=== PATIENT | female | born 1935 | race Caucasian/White ===

== ENCOUNTER 2016-08-21 08:36 | Day surgery (SDC) | payer MEDICARE, MEDICAID ==
[~2016-08-21 08:36] MED LIST: PROPOFOL INJ 200 MG/20 ML VIAL IV ONE
[2016-08-21] MEDS ORDERED: PROPOFOL INJ 200 MG/20 ML VIAL IV ONE ×2 (08:45→10:59)
[2016-08-21 12:02] VITALS: BP 151/49
--- NOTE | 2016-08-21 12:28 | Operative Report ---
Operative Report DATE OF SURGERY: 08/21/16 Operative Report: The risks, benefits and alternatives of the procedure including risks of bleeding, perforation requiring surgery are explained to the patient detail and informed consent is obtained. The patient was taken back to the endoscopy suite. Timeout is called. A rectal examination is done which did not reveal any masses, tears or fissures. An Olympus videoscope was inserted into the patient's rectum. Keeping the lumen in site at all times the scope was then gradually advanced all the way to the cecum. The cecum as identified by the usual anatomical landmarks including the ileocecal valve as well as the appendiceal office. Prep is good. Photo documentations obtained. The scope was then sequentially pulled back via the rest segments of the colon including the ascending colon, hepatic flexure, transverse colon, splenic flexure, descending colon and finally into the rectosigmoid colon. Retroflexion maneuvers performed. Following the completion of colonoscopy the patient's stretcher was turned around and the upper endoscopy is performed. The risks benefits and alternatives of the procedure explained to the patient in detail and informed consent is obtained that GIF Olympus video scope was inserted into the patient's mouth and hypopharynx the esophagus is identified intubated and insufflated the scope was then advanced through the esophagus stomach and duodenum retroflexion maneuver is done the esophagus stomach and first and second portions of the duodenum examined PREOPERATIVE DIAGNOSIS: Indications for the colonoscopy includes GI bleeding, previous history of diverticulosis. Indications for the upper endoscopy includes noncardiac chest pain, gastroesophageal reflux disease. POSTOPERATIVE DIAGNOSIS: On upper endoscopy findings of a duodenal bulb polyp that required snare polypectomy. Colonoscopy to 3 polyps; one in the cecum, one in the sigmoid, the other one in the rectum. All 3 had to be removed via snare polypectomy. Patient does have some diverticulosis. Total hemorrhoids are also visualized. OPERATION: Colonoscopy with snare polypectomy. Upper endoscopy with snare polypectomy. SURGEON: ALEX BIGGS ANESTHESIA: LMAC TISSUE REMOVED OR ALTERED: Duodenal polyp removed and retrieved. All 3 colon polyps removed and retrieved. COMPLICATIONS: None. ESTIMATED BLOOD LOSS: none INTRAOPERATIVE FINDINGS: Mild gastritis is noted. Duodenal polyp is noted removed via snare polypectomy. Patent esophagus. 3 polyps as described. Diverticulosis. Internal hemorrhoids PROCEDURE: Patient tolerated the procedure well. No immediate postprocedure complications are noted. Patient is discharged in good condition. Patient does have a 2-3 week follow-up to discuss findings. She is instructed to call the office or go to emergency room if there is any bleeding. She'll need a surveillance colonoscopy in 5 years. Discharge date 08/21/2016. Discharge diet: Regular. Discharge activity: Regular.
== END 2016-08-21 12:10 | disposition home or self-care (01) ==
LOC: END 08:36
PROVIDERS: ATTEND Internal Medicine Gastroenterology
PROC: 0DBN8ZX Excision of Sigmoid Colon, Via Natural or Artificial Opening Endoscopic, Diagnostic (ICD-10-PCS; 2016-08-21)
PROC: 0DBP8ZX Excision of Rectum, Via Natural or Artificial Opening Endoscopic, Diagnostic (ICD-10-PCS; 2016-08-21)
PROC: 0DB98ZX Excision of Duodenum, Via Natural or Artificial Opening Endoscopic, Diagnostic (ICD-10-PCS; principal; 2016-08-21 09:00)
PROC: 0DBH8ZX Excision of Cecum, Via Natural or Artificial Opening Endoscopic, Diagnostic (ICD-10-PCS; 2016-08-21 09:00)
DX: D13.2 Benign neoplasm of duodenum (principal); D12.0 Benign neoplasm of cecum; D12.5 Benign neoplasm of sigmoid colon; K62.1 Rectal polyp; K62.5 Hemorrhage of anus and rectum; J44.9 Chronic obstructive pulmonary disease, unspecified; I25.10 Atherosclerotic heart disease of native coronary artery without angina pectoris; J45.909 Unspecified asthma, uncomplicated; E11.9 Type 2 diabetes mellitus without complications; Z85.3 Personal history of malignant neoplasm of breast; I50.9 Heart failure, unspecified; Z79.82 Long term (current) use of aspirin; Z79.899 Other long term (current) drug therapy
CPT/HCPCS: 43251; 45385; 82962; 88305 ×2; J2704; 740

== ENCOUNTER → 2016-08-29 | Outpatient (CLI) | payer MEDICARE, MEDICAID | LOC: RAD 10:49 | PROVIDERS: ATTEND Specialist | DX: C50.412 Malignant neoplasm of upper-outer quadrant of left female breast (principal) | CPT/HCPCS: 78306; A9503; Q9969 ==

== ENCOUNTER 2016-09-29 07:56 | Inpatient (IN) | payer MEDICARE, MEDICAID ==
[2016-09-29] MEDS ORDERED: DEXTROSE 50%-WATER 25 GM/50 ML DISP.SYRIN IV ONE (08:16)
[2016-09-29] MEDS ORDERED: DEXTROSE 5%-NORMAL SALINE 1,000 ML IV ONE (08:29)
[2016-09-29 08:35] LABS: ABSOLUTE BASOPHILS # (AUTO) 0.1 10^3/uL (0.0-0.2); ABSOLUTE EOSINOPHILS # (AUTO) 0.2 10^3/uL (0.0-0.6); ABSOLUTE LYMPHOCYTES (AUTO) 1.1 10^3/uL (0.5-4.7); ABSOLUTE MONOCYTES (AUTO) 0.5 10^3/uL (0.1-1.4); ABSOLUTE NEUT (AUTO) 4.4 10^3/uL (1.7-8.2); BASOPHILS % (AUTO) 0.8 % (0-2); EOSINOPHILS % (AUTO) 3.7 % (0-6); HEMATOCRIT 32.9 % (36.0-47.0); HEMOGLOBIN 10.7 g/dL (12.0-15.5); HGB HCT DIFFERENCE -0.8; LYMPHOCYTES % (AUTO) 17.4 % (13-45); MEAN CORPUSCULAR HEMOGLOBIN 30.6 pg (27.0-33.4); MEAN CORPUSCULAR HGB CONC 32.5 g/dL (32.0-36.0); MEAN CORPUSCULAR VOLUME 94 fl (80-97); MONOCYTES % (AUTO) 8.3 % (3-13); RED CELL DISTRIBUTION WIDTH 16.2 % (11.5-14.0); SEGMENTED NEUTROPHILS % (AUTO) 69.8 % (42-78); WHITE BLOOD COUNT 6.2 10^3/uL (4.0-10.5)
[2016-09-29 08:38] LABS: ALANINE AMINOTRANSFERASE 25 U/L (9-52); ALBUMIN 4.5 g/dL (3.5-5.0); ALKALINE PHOSPHATASE 62 U/L (38-126); ANION GAP 14 (5-19); ASPARTATE AMINO TRANSFERASE 27 U/L (14-36); BILIRUBIN,TOTAL 0.5 mg/dL (0.2-1.3); BLOOD UREA NITROGEN 57 mg/dL (7-20); CALCIUM 10.4 mg/dL (8.4-10.2); CARBON DIOXIDE 31 mmol/L (22-30); CHLORIDE 99 mmol/L (98-107); CREATINE KINASE 98 U/L (30-135); CREATININE RESULT 1.98 mg/dL (0.52-1.25); GLUCOSE 65 mg/dL (75-110); POTASSIUM 3.2 mmol/L (3.6-5.0); SODIUM 143.6 mmol/L (137-145); TOTAL PROTEIN 7.1 g/dL (6.3-8.2)
[2016-09-29 08:50] LABS: CREATINE KINASE MB 1.75 ng/mL (<4.55)
[2016-09-29 08:52] LABS: LIPASE 192.3 U/L (23-300)
[2016-09-29 09:03] LABS: TROPONIN I 0.04 ng/mL
[2016-09-29 09:04] LABS: MAGNESIUM 0.8 mg/dL (1.6-2.3)
[2016-09-29] MEDS ORDERED: MAGNESIUM SULFATE/D5W 100 ML IV ONE ×2 (09:27→13:00)
[2016-09-29 10:21] LABS: APPEARANCE,URINE CLEAR; BILIRUBIN,URINE NEGATIVE (NEGATIVE); GLUCOSE, URINE NEGATIVE (NEGATIVE); KETONES,URINE NEGATIVE (NEGATIVE); LEUKOCYTE ESTERASE,URINE LARGE (NEGATIVE); NITRITE,URINE NEGATIVE (NEGATIVE); PROTEIN,URINE NEGATIVE (NEGATIVE); UROBILINOGEN,URINE NEGATIVE mg/dL (<2.0)
[2016-09-29 10:22] LABS: URINE SPECIFIC GRAVITY 1.006
--- NOTE | 2016-09-29 10:31 | ER Document Report ---
ED General - General Chief Complaint: Hypglycemia Stated Complaint: WEAKNESS TRAVEL OUTSIDE OF THE [place] IN LAST 30 DAYS: No - HPI Patient complains to provider of: hypoglycemia generalized weakness Notes: EMS was called to the patient's house today after she was found to be nonresponsive had a blood sugar 40. Patient was given an amp D50 transfer reported to the emergency room for further evaluation. Upon arrival here patient was found to be hypoglycemic again and was given another amp. Patient did improve. Patient and family states generally weak her last few days no nausea no vomiting fevers chills. - Related Data Allergies/Adverse Reactions: codeine [Codeine] Allergy (Severe, Verified 09/29/16 09:18) Hospitalized Penicillins Allergy (Severe, Verified 09/29/16 09:18) Redness, heat, swelling at site promethazine HCl [From Phenergan] Allergy (Unknown, Verified 09/29/16 09:18) PROBLEMS WITH LEGS Sulfa (Sulfonamide Antibiotics) Allergy (Unknown, Verified 09/29/16 09:18) Unknown reaction hydralazine HCl [From Apresoline] Adverse Reaction (Severe, Verified 09/29/16 09 :18) Cardiac arrest atorvastatin calcium [From Lipitor] Adverse Reaction (Verified 09/29/16 09:18) IV Contrast Allergy (Severe, Uncoded 09/29/16 09:18) ESRD Home Medications: Current Home Medications Allopurinol [Zyloprim 100 mg Tablet] 100 mg PO DAILY 09/29/16 [History] Amlodipine Besylate [Norvasc 10 mg Tablet] 10 mg PO DAILY 09/29/16 [History] Anastrozole [Arimidex 1 mg Tablet] 1 mg PO QHS 09/29/16 [History] Ascorbic Acid [Vitamin C 500 mg Tablet] 500 mg PO DAILY 09/29/16 [History] Aspirin [Aspirin 81 mg Chewable Tablet] 81 mg PO DAILY 09/29/16 [History] Carvedilol [Coreg 6.25 mg Tablet] 6.25 mg PO Q12 09/29/16 [History] Esomeprazole Magnesium [Nexium] 40 mg PO DAILY 09/29/16 [History] Fenofibrate Nanocrystallized [Triglide] 160 mg PO DAILY 09/29/16 [History] Fluticasone Propionate [Flonase Nasal [place] 50 Mcg/[place] 16 gm] 1 spray NASL Q12 09/29/16 [History] Hum Insulin NPH/Reg Insulin Hm [Insulin Inj 70-30 (100 Unit/1 ml) 3 ml Vial] 75 unit SUBCUT BID 09/29/16 [History] Hydrocodone/Acetaminophen [[place] 10-325 mg Tablet] 1 tab PO Q6HP PRN 09/29/16 [ History] Isosorbide Mononitrate [Imdur 60 mg Tablet.er] 60 mg PO DAILY 09/29/16 [History] Loratadine 10 mg PO DAILY 09/29/16 [History] Losartan Potassium [Cozaar 100 mg Tablet] 100 mg PO DAILY 09/29/16 [History] Metolazone [Zaroxolyn 2.5 Mg Tablet] 2.5 mg PO DAILY 09/29/16 [History] Nitroglycerin [Nitrostat] 0.4 mg SL Q5MP PRN 09/29/16 [History] [place]-3 Acid Ethyl Esters [Lovaza 1 gm Capsule] 2 gm PO BID 09/29/16 [History] Ondansetron HCl [Zofran 8 mg Tablet] 8 mg PO Q8HP PRN 09/29/16 [History] Paroxetine HCl [Paxil 20 mg Tablet] 20 mg PO QAM 09/29/16 [History] Potassium Chloride [Klor-Con 10 Meq Tablet.sa] 10 meq PO DAILY 09/29/16 [History ] Rosuvastatin Calcium [Crestor 10 mg Tablet] 10 mg PO DAILY 09/29/16 [History] Simethicone [Gas-X] 80 mg PO QIDP PRN 09/29/16 [History] Sucralfate [Carafate 1 gm Tablet] 1 gm PO BID 09/29/16 [History] Torsemide [Demadex 20 mg Tablet] 60 mg PO BID 09/29/16 [History] Past Medical History - Social History Smoking Status: Never Smoker Chew tobacco use (# tins/day): No Frequency of alcohol use: None Drug Abuse: None Family History: Reviewed & Not Pertinent, CAD, DM, Hyperlipidemia, Hypertension Patient has suicidal ideation: No Patient has homicidal ideation: No - Past Medical History Cardiac Medical History: Reports: Hx Congestive Heart Failure, Hx Coronary Artery Disease, Hx Hypertension Denies: Hx Atrial Fibrillation, Hx Heart Attack, Hx Hypercholesterolemia, Hx Peripheral Vascular Disease, Hx Pulmonary Embolism, Hx Heart Murmur Pulmonary Medical History: Reports: Hx Asthma, Hx Bronchitis, Hx COPD, Hx Pneumonia Denies: Hx Respiratory Failure, Hx Sleep Apnea, Hx Tuberculosis Neurological Medical History: Reports: Hx Migraine. Denies: Hx Cerebrovascular Accident, Hx Seizures Endocrine Medical History: Reports: Hx Diabetes Mellitus Type 1, Hx Diabetes Mellitus Type 2. Denies: Hx Graves' Disease, Hx Hyperthyroidism, Hx Hypothyroidism Renal/ Medical History: Denies: Hx End Stage Renal Disease, Hx Kidney Stones, Hx Ovarian Cysts, Hx Peritoneal Dialysis, Hx Pelvic Inflammatory Disease Malignancy Medical History: Reports: Hx Breast Cancer. Denies: Hx Cervical Cancer, Hx Leukemia, Hx Lung Cancer, Hx Ovarian Cancer GI Medical History: Reports: Hx Diverticulitis, Hx Gastroesophageal Reflux Disease, Hx Irritable Bowel, Hx Ulcer. Denies: Hx Crohn's Disease, Hx Hiatal Hernia, Hx Liver Failure Musculoskeltal Medical History: Reports Hx Arthritis, Denies Hx Fibromyalgia, Reports Hx Gout, Denies Hx Multiple Sclerosis, Denies Hx Muscular Dystrophy Psychiatric Medical History: Reports: Hx Depression Denies: Hx Bipolar Disorder, Hx Dementia, Hx Post Traumatic Stress Disorder, Hx Schizophrenia Traumatic Medical History: Reports: Hx Fractures Infectious Medical History: Denies: Hx HIV Past Surgical History: Reports: Hx Abdominal Surgery - Abdominal and umbilical hernia, Hx Appendectomy - In 1960, Hx Bowel Surgery - Instetinal bleed surgically repaired in the s, Hx Cholecystectomy, Hx Hysterectomy, Hx Kidney (Renal Surgery) - Left kidney stent, Hx Thyroid Surgery. Denies: Hx Section, Hx Colostomy, Hx Coronary Artery Bypass Graft, Hx Gastric Bypass Surgery, Hx Herniorrhaphy, Hx Mastectomy, Hx Pacemaker, Hx Tonsillectomy , Hx Tubal Ligation - Immunizations Hx Diphtheria, Pertussis, Tetanus Vaccination: No - Tetanus out of date Hx Pneumococcal Vaccination: 07/18/14 Review of Systems - Review of Systems Constitutional: No symptoms reported EENT: No symptoms reported Cardiovascular: No symptoms reported Respiratory: No symptoms reported Gastrointestinal: No symptoms reported Genitourinary: No symptoms reported Female Genitourinary: No symptoms reported Musculoskeletal: No symptoms reported Skin: No symptoms reported Hematologic/Lymphatic: No symptoms reported Neurological/Psychological: Weakness -: Yes All other systems reviewed and negative Physical Exam - Vital signs Vitals: Resp 18 09/29/16 08:05 Interpretation: Normal - General General appearance: Appears well, Alert - HEENT Head: Normocephalic, Atraumatic Eyes: Normal Pupils: PERRL - Respiratory Respiratory status: No respiratory distress Chest status: Nontender Breath sounds: Normal Chest palpation: Normal - Cardiovascular Rhythm: Regular Heart sounds: Normal auscultation Murmur: No - Abdominal Inspection: Normal Distension: No distension Bowel sounds: Normal Tenderness: Nontender Organomegaly: No organomegaly - Back Back: Normal, Nontender - Extremities General upper extremity: Normal inspection, Nontender General lower extremity: Normal inspection, Nontender - Neurological Neuro grossly intact: Yes Cognition: Normal Orientation: AAOx4 [place] Coma Scale Eye Opening: Spontaneous [place] Coma Scale Verbal: Oriented [place] Coma Scale Motor: Obeys Commands [place] Coma Scale Total: 15 Speech: Normal Sensory: Normal - Psychological Associated symptoms: Normal affect, Normal mood - Skin Skin Temperature: Warm Skin Moisture: Dry Skin Color: Normal Course - Re-evaluation Re-evalutation: 09/29/16 15:24 Patient's lab work showed chronic renal insufficiency with hypomagnesemia hypokalemia. Upon/were placed. Patient will transition to a D5 drip. Accu- Cheks were monitored. No signs of infection unknown reason for recurrent hypoglycemia patient will be admitted for further evaluation. - Vital Signs Vital signs: Temp Pulse Resp BP Pulse Ox 97.6 F 23 H 157/72 H 95 09/29/16 08:55 09/29/16 13:02 09/29/16 13:02 09/29/16 11:02 - Laboratory Result Diagrams: 09/29/16 08:05 09/29/16 08:05 Laboratory results interpreted by me: 09/29/16 09/29/16 09/29/16 08:03 08:05 08:05 RBC 3.50 L Hgb 10.7 L Hct 32.9 L RDW 16.2 H Potassium 3.2 L Carbon Dioxide 31 H BUN 57 H Creatinine 1.98 H Est GFR ( Amer) 29 L Est GFR (Non-Af Amer) 24 L Glucose 65 L POC Glucose 69 L Calcium 10.4 H Magnesium Ur Leukocyte Esterase 09/29/16 09/29/16 09/29/16 08:05 08:23 10:05 RBC Hgb Hct RDW Potassium Carbon Dioxide BUN Creatinine Est GFR ( Amer) Est GFR (Non-Af Amer) Glucose POC Glucose 221 H Calcium Magnesium 0.8 L* Ur Leukocyte Esterase LARGE H 09/29/16 11:14 RBC Hgb Hct RDW Potassium Carbon Dioxide BUN Creatinine Est GFR ( Amer) Est GFR (Non-Af Amer) Glucose POC Glucose 138 H Calcium Magnesium Ur Leukocyte Esterase Critical Care Note - Critical Care Note Total time excluding time spent on procedures (mins): 35 Comments: Multiple evaluations for recurrent hypoglycemia Discharge - Discharge Clinical Impression: Generalized weakness, recurrent hypoglycemia, Hypomagnesemia, Hypokalemia, Chronic kidney disease, stage IV (severe) Condition: Fair Disposition: ADMITTED OBSERVATION Admitting Provider: Hospitalist - [facility] Admitted: Telemetry
--- NOTE | 2016-09-29 11:02 | EKG REPORT ---
SEVERITY:- ABNORMAL ECG - A-V DUAL-PACED RHYTHM WITH SOME INHIBITION : Confirmed by: Mayo Stokes MD 29-Sep-2016 11:02:08
[2016-09-29] MEDS ORDERED: MAGNESIUM SULFATE/D5W 1 GM/100 ML RTUPB IV ONE (11:40)
[2016-09-29] MEDS ORDERED: ACETAMINOPHEN 325 MG TABLET PO PRN (11:51)
[2016-09-29] MEDS ORDERED: DEXTROSE 40% GEL 15 GM TUBE PO PRN ×2 (11:58)
[2016-09-29] MEDS ORDERED: DEXTROSE 50%-WATER 25 GM/50 ML DISP.SYRIN IV PRN ×2 (11:58)
[2016-09-29] MEDS ORDERED: GLUCAGON,HUMAN RECOMB 1 MG INJ IM PRN (11:58)
[2016-09-29] MEDS ORDERED: LEVOFLOXACIN 750 MG/D5W RTU 150 ML IV SCH (12:00)
--- NOTE | 2016-09-29 12:09 | PDOC H&P ---
History of Present Illness Admission Date/PCP: YO CHASE, Patient complains of: Near syncope History of Present Illness: JACINTA LUNSFORD is a 81 year old female, with diabetes, hypertension and congestive heart failure, as well as chronic kidney disease stage IV presents to the hospital with a near syncopal episode. Patient apparently started to develop generalized weakness yesterday. There is associated difficulty urination but no painful urination. There is some frequency associated as well. There was no loss of appetite chills or fever shortness of breath or coughing nor diarrhea. Today the patient had a near syncopal episode while trying to get up in bed. The ambulance was called and blood sugar was noted to be in the 40s. The patient was given dextrose and was transferred to the hospital where continuous infusion of glucose was administered. Blood sugar improved but it started to go down again. Magnesium was very low at 0.8 and potassium was low at 3.2. The patient was then referred for admission. There was associated diaphoresis but no chest pain at all. Past Medical History Past Medical History: Medication reconciliation pending verification from the patient's pharmacist. Cardiac Medical History: Reports: Congestive Heart Failure, Coronary Artery Disease, Hypertension, Heart Murmur, Other - Valvular heart disease Denies: Atrial Fibrillation, Myocardial Infarction, Hyperlipidema, Peripheral Vascular Disease, Pulmonary Embolism Pulmonary Medical History: Reports: Asthma, Bronchitis, Chronic Obstructive Pulmonary Disease (COPD), Pneumonia Denies: Respiratory Failure, Sleep Apnea, Tuberculosis Neurological Medical History: Reports: Migraine Denies: Seizures Endocrine Medical History: Reports: Diabetes Mellitus Type 1, Diabetes Mellitus Type 2 Denies: Hyperthyroidism, Hypothyroidism Renal/ Medical History: Reports: Chronic Kidney Disease - Stage IV Denies: End Stage Renal Disease Malignancy Medical History: Reports: Breast Cancer Denies: Cervical Cancer, Leukemia, Lung Cancer, Ovarian Cancer GI Medical History: Reports: Diverticulitis, Gastroesophageal Reflux Disease Denies: Crohn's Disease, Hiatal Hernia Musculoskeltal Medical History: Reports: Arthritis, Gout Denies: Fibromyalgia Psychiatric Medical History: Reports: Depression Denies: Bipolar Disorder, Dementia, Post Traumatic Stress Disorder Hematology: Reports: Anemia Denies: Hemophilia, Sickle Cell Disease Infectious Medical History: Denies: HIV Past Surgical History Past Surgical History: Reports: Appendectomy - In 1961, Cholecystectomy, Hysterectomy Denies: Amputation, Section, Colostomy, Coronary Artery Bypass Graft , Gastric Bypass Surgery, Herniorrhaphy, Mastectomy, Pacemaker, Tonsillectomy, Tubal Ligation Social History Information Source: Patient Smoking Status: Never Smoker Frequency of Alcohol Use: None Hx Recreational Drug Use: No Drugs: None Hx Prescription Drug Abuse: No Family History Family History: CAD, DM, Hyperlipidemia, Hypertension Parental Family History Reviewed: Yes Children Family History Reviewed: Yes Sibling(s) Family History Reviewed.: Yes Medication/Allergy Home Medications: Allopurinol [Zyloprim 100 mg Tablet] 100 mg PO DAILY 09/29/16 Amlodipine Besylate [Norvasc 10 mg Tablet] 10 mg PO DAILY 09/29/16 Anastrozole [Arimidex 1 mg Tablet] 1 mg PO QHS 09/29/16 Ascorbic Acid [Vitamin C 500 mg Tablet] 500 mg PO DAILY 09/29/16 Aspirin [Aspirin 81 mg Chewable Tablet] 81 mg PO DAILY 09/29/16 Carvedilol [Coreg 6.25 mg Tablet] 6.25 mg PO Q12 09/29/16 Esomeprazole Magnesium [Nexium] 40 mg PO DAILY 09/29/16 Fenofibrate Nanocrystallized [Triglide] 160 mg PO DAILY 09/29/16 Fluticasone Propionate [Flonase Nasal [place] 50 Mcg/[place] 16 gm] 1 spray NASL Q12 09/29/16 Hum Insulin NPH/Reg Insulin Hm [Insulin Inj 70-30 (100 Unit/1 ml) 3 ml Vial] 75 unit SUBCUT BID 09/29/16 Hydrocodone/Acetaminophen [[place] 10-325 mg Tablet] 1 tab PO Q6HP PRN 09/29/16 Isosorbide Mononitrate [Imdur 60 mg Tablet.er] 60 mg PO DAILY 09/29/16 Loratadine 10 mg PO DAILY 09/29/16 Losartan Potassium [Cozaar 100 mg Tablet] 100 mg PO DAILY 09/29/16 Metolazone [Zaroxolyn 2.5 Mg Tablet] 2.5 mg PO DAILY 09/29/16 Nitroglycerin [Nitrostat] 0.4 mg SL Q5MP PRN 09/29/16 [place]-3 Acid Ethyl Esters [Lovaza 1 gm Capsule] 2 gm PO BID 09/29/16 Ondansetron HCl [Zofran 8 mg Tablet] 8 mg PO Q8HP PRN 09/29/16 Paroxetine HCl [Paxil 20 mg Tablet] 20 mg PO QAM 09/29/16 Potassium Chloride [Klor-Con 10 Meq Tablet.sa] 10 meq PO DAILY 09/29/16 Rosuvastatin Calcium [Crestor 10 mg Tablet] 10 mg PO DAILY 09/29/16 Simethicone [Gas-X] 80 mg PO QIDP PRN 09/29/16 Sucralfate [Carafate 1 gm Tablet] 1 gm PO BID 09/29/16 Torsemide [Demadex 20 mg Tablet] 60 mg PO BID 09/29/16 Allergies/Adverse Reactions: codeine [Codeine] Allergy (Severe, Verified 09/29/16 09:18) Hospitalized Penicillins Allergy (Severe, Verified 09/29/16 09:18) Redness, heat, swelling at site promethazine HCl [From Phenergan] Allergy (Unknown, Verified 09/29/16 09:18) PROBLEMS WITH LEGS Sulfa (Sulfonamide Antibiotics) Allergy (Unknown, Verified 09/29/16 09:18) Unknown reaction hydralazine HCl [From Apresoline] Adverse Reaction (Severe, Verified 09/29/16 09 :18) Cardiac arrest atorvastatin calcium [From Lipitor] Adverse Reaction (Verified 09/29/16 09:18) IV Contrast Allergy (Severe, Uncoded 09/29/16 09:18) ESRD Review of Systems Constitutional: PRESENT: weakness - Generalized. ABSENT: chills, fever(s), headache(s), weight gain, weight loss Eyes: ABSENT: visual disturbances Ears: ABSENT: hearing changes Nose, Mouth, and Throat: PRESENT: mouth pain. ABSENT: headache(s), sore throat Cardiovascular: PRESENT: edema - Chronic both extremity. ABSENT: chest pain, dyspnea on exertion, orthropnea, palpitations Respiratory: ABSENT: cough, hemoptysis Gastrointestinal: PRESENT: abdominal pain - There is some abdominal discomfort characterized as tightness and cramping mainly on the lower abdomen. ABSENT: coffee ground emesis, constipation, diarrhea, hematemesis, hematochezia, melena , nausea, vomiting Genitourinary: PRESENT: difficulty urinating, dysuria. ABSENT: hematuria, nocturia Musculoskeletal: ABSENT: joint swelling Integumentary: ABSENT: pruritus, rash, wounds Neurological: PRESENT: confusion - Mildly according to the family. ABSENT: abnormal gait, abnormal speech, dizziness, focal weakness, syncope Psychiatric: ABSENT: anxiety, depression, homidical ideation, suicidal ideation Endocrine: ABSENT: cold intolerance, heat intolerance, polydipsia, polyuria Hematologic/Lymphatic: ABSENT: easy bleeding, easy bruising Physical Exam Vital Signs: Temp Pulse Resp BP Pulse Ox 97.6 F 20 174/67 H 95 09/29/16 08:55 09/29/16 11:02 09/29/16 11:02 09/29/16 11:02 Intake & Output 09/28/16 09/29/16 09/30/16 06:59 06:59 06:59 Weight 82 kg General appearance: PRESENT: no acute distress, cooperative, morbidly obese Head exam: PRESENT: atraumatic, normocephalic Eye exam: PRESENT: conjunctiva pale, EOMI, PERRLA - Sluggish. ABSENT: scleral icterus Ear exam: PRESENT: normal external ear exam Mouth exam: PRESENT: dry mucosa, neck supple, tongue midline Throat exam: ABSENT: post pharyngeal erythema Neck exam: ABSENT: carotid bruit, JVD, lymphadenopathy, thyromegaly Respiratory exam: PRESENT: clear to auscultation dion, unlabored. ABSENT: rales , rhonchi, wheezes Cardiovascular exam: PRESENT: RRR, systolic murmur - Left sternal border. ABSENT: diastolic murmur, rubs Pulses: PRESENT: normal dorsalis pedis pul Vascular exam: PRESENT: normal capillary refill GI/Abdominal exam: PRESENT: normal bowel sounds, soft. ABSENT: distended, guarding, mass, organolmegaly, rebound, tenderness Rectal exam: PRESENT: deferred Extremities exam: PRESENT: full ROM, +1 edema. ABSENT: calf tenderness, clubbing Neurological exam: PRESENT: alert, awake, oriented to person, oriented to place , oriented to time, oriented to situation Psychiatric exam: PRESENT: appropriate affect, normal mood. ABSENT: homicidal ideation, suicidal ideation Skin exam: PRESENT: dry, intact, warm. ABSENT: cyanosis, rash Results Laboratory Results: 09/29/16 08:05 09/29/16 08:05 09/29/16 09/29/16 09/29/16 08:05 08:05 08:05 WBC 6.2 RBC 3.50 L Hgb 10.7 L Hct 32.9 L MCV 94 MCH 30.6 MCHC 32.5 RDW 16.2 H Plt Count 192 Seg Neutrophils % 69.8 Lymphocytes % 17.4 Monocytes % 8.3 Eosinophils % 3.7 Basophils % 0.8 Absolute Neutrophils 4.4 Absolute Lymphocytes 1.1 Absolute Monocytes 0.5 Absolute Eosinophils 0.2 Absolute Basophils 0.1 Sodium 143.6 Potassium 3.2 L Chloride 99 Carbon Dioxide 31 H Anion Gap 14 BUN 57 H Creatinine 1.98 H Est GFR ( Amer) 29 L Est GFR (Non-Af Amer) 24 L Glucose 65 L Calcium 10.4 H Magnesium 0.8 L* Total Bilirubin 0.5 AST 27 ALT 25 Alkaline Phosphatase 62 Total Protein 7.1 Albumin 4.5 Lipase 192.3 Urine Color Urine Appearance Urine pH Ur Specific [place] Urine Protein Urine Glucose (UA) Urine Ketones Urine Blood Urine Nitrite Ur Leukocyte Esterase Urine WBC (Auto) 09/29/16 10:05 WBC RBC Hgb Hct MCV MCH MCHC RDW Plt Count Seg Neutrophils % Lymphocytes % Monocytes % Eosinophils % Basophils % Absolute Neutrophils Absolute Lymphocytes Absolute Monocytes Absolute Eosinophils Absolute Basophils Sodium Potassium Chloride Carbon Dioxide Anion Gap BUN Creatinine Est GFR ( Amer) Est GFR (Non-Af Amer) Glucose Calcium Magnesium Total Bilirubin AST ALT Alkaline Phosphatase Total Protein Albumin Lipase Urine Color COLORLESS Urine Appearance CLEAR Urine pH 7.0 Ur Specific [place] 1.006 Urine Protein NEGATIVE Urine Glucose (UA) NEGATIVE Urine Ketones NEGATIVE Urine Blood NEGATIVE Urine Nitrite NEGATIVE Ur Leukocyte Esterase LARGE H Urine WBC (Auto) 2 09/29/16 09/29/16 08:05 08:05 Creatine Kinase 98 CK-MB (CK-2) 1.75 Troponin I 0.040 Impressions: Chest X-Ray 09/29/16 00:00 IMPRESSION: No acute abnormality in the chest. Assessment & Plan - Diagnosis (1) Near syncope Is this a current diagnosis for this admission?: Yes (2) Hypoglycemia Is this a current diagnosis for this admission?: Yes (3) UTI (urinary tract infection) Qualifiers: Urinary tract infection type: site unspecified Hematuria presence: without hematuria Qualified Code(s): N39.0 - Urinary tract infection, site not specified Is this a current diagnosis for this admission?: Yes (4) Hypokalemia Is this a current diagnosis for this admission?: Yes (5) Hypercalcemia Is this a current diagnosis for this admission?: Yes (6) Anemia of chronic disease Is this a current diagnosis for this admission?: Yes (7) CHF (congestive heart failure) Qualifiers: Congestive heart failure type: unspecified congestive heart failure type Congestive heart failure chronicity: unspecified congestive heart failure chronicity Qualified Code(s): I50.9 - Heart failure, unspecified Is this a current diagnosis for this admission?: Yes (8) Chronic kidney disease, stage IV (severe) Is this a current diagnosis for this admission?: Yes (9) Coronary artery disease Qualifiers: Coronary Disease-Associated Artery/Lesion type: [place] artery [place] vs. transplanted heart: [place] heart Associated angina: without angina Qualified Code(s): I25.10 - Atherosclerotic heart disease of [place] coronary artery without angina pectoris Is this a current diagnosis for this admission?: Yes (10) GERD (gastroesophageal reflux disease) Qualifiers: Esophagitis presence: without esophagitis Qualified Code(s): K21.9 - Gastro-esophageal reflux disease without esophagitis Is this a current diagnosis for this admission?: Yes (11) Hypertension Qualifiers: Hypertension type: essential hypertension Qualified Code(s): I10 - Essential (primary) hypertension Is this a current diagnosis for this admission?: Yes (12) Valvular heart disease Is this a current diagnosis for this admission?: Yes (13) Diabetes mellitus type I Qualifiers: Diabetes mellitus complication status: with unspecified complications Qualified Code(s): E10.8 - Type 1 diabetes mellitus with unspecified complications Is this a current diagnosis for this admission?: Yes - Time Time Spent: 50 to 70 Minutes - Inpatient Certification Based on my medical assessment, after consideration of the patient's comorbidities, presenting symptoms, or acuity I expect that the services needed warrant INPATIENT care.: Yes I certify that my determination is in accordance with my understanding of Medicare's requirements for reasonable and necessary INPATIENT services [42 CFR 412.3e].: Yes Medical Necessity: Significant Comorbidiites Make Outpatient Treatment Too Risky , Need Close Monitoring Due to Risk of Patient Decompensation, Need For IV Fluids, Risk of Complication if Not Cared For in Hospital Post Hospital Care: D/C [employer] Analyst Documentation - Plan Summary Plan Summary: The patient will be admitted to telemetry. We will continue dextrose infusion and IV hydration with saline. We will hold the patient's insulin for now. In the meantime we will replace magnesium and potassium and recheck electrolytes closely. I will culture the patient's urine and begin intravenous antibiotics. DVT prophylaxis with heparin would be placed. I will likewise hold the patient's diuretics for now. Further testing depends on the initial evaluation as outlined above. Dr. Chase will assume care of patient in the morning.
[2016-09-29 13:02] LABS: THYROID STIMULATING HORMONE 4.62 uIU/mL (0.47-4.68)
[2016-09-29] MEDS: POTASSIUM CHLORIDE 10 MEQ TABLET.SA PO SCH ×2 (14:48→15:45)
[2016-09-29] MEDS: DEXTROSE 5%-NORMAL SALINE 1,000 ML IV PRN ×2 (14:50→23:00)
[2016-09-29] MEDS: SUCRALFATE 1 GM TABLET PO SCH ×2 (15:44→21:44)
[2016-09-29] MEDS: HEPARIN SOD (PORCINE) 5,000 UNIT/ML 1 ML SYRINGE SUBCUT SCH ×2 (15:45→21:42)
[2016-09-29] MEDS: HYDROCODONE/ACETAMINOPHEN 10-325 MG TABLET PO PRN ×2 (17:16→23:02)
[2016-09-29] MEDS: DOCUSATE SODIUM 100 MG CAPSULE PO SCH (17:16)
[2016-09-29] MEDS ORDERED: FERROUS SULFATE 325 MG TABLET PO SCH (18:00)
[2016-09-29] MEDS: FLUTICASONE NASAL SPRAY 50 MCG/SPRY 120 SPRAY/16 GM NASL SCH (21:39)
[2016-09-29] MEDS: ANASTROZOLE 1 MG TABLET PO SCH (21:42)
[2016-09-29] MEDS: INSULIN REG, HUMAN 100 UNIT/ML 3 ML VIAL (PYX) SUBCUT PRN (21:42)
[2016-09-29] MEDS: CARVEDILOL 6.25 MG TABLET PO SCH (21:44)
[2016-09-30 04:51] LABS: ABSOLUTE EOSINOPHILS # (AUTO) 0.2 10^3/uL (0.0-0.6); ABSOLUTE LYMPHOCYTES (AUTO) 1.2 10^3/uL (0.5-4.7); ABSOLUTE MONOCYTES (AUTO) 0.4 10^3/uL (0.1-1.4); ABSOLUTE NEUT (AUTO) 3.5 10^3/uL (1.7-8.2); BASOPHILS % (AUTO) 0.7 % (0-2); HEMATOCRIT 30.3 % (36.0-47.0); HGB HCT DIFFERENCE -0.3; LYMPHOCYTES % (AUTO) 22.2 % (13-45); MEAN CORPUSCULAR HGB CONC 32.9 g/dL (32.0-36.0); MEAN CORPUSCULAR VOLUME 94 fl (80-97); MONOCYTES % (AUTO) 7.9 % (3-13); RED BLOOD COUNT 3.22 10^6/uL (3.72-5.28); RED CELL DISTRIBUTION WIDTH 16.7 % (11.5-14.0); SEGMENTED NEUTROPHILS % (AUTO) 66.2 % (42-78); WHITE BLOOD COUNT 5.4 10^3/uL (4.0-10.5)
[2016-09-30 05:19] LABS: ANION GAP 11 (5-19); BLOOD UREA NITROGEN 44 mg/dL (7-20); CARBON DIOXIDE 29 mmol/L (22-30); CHLORIDE 102 mmol/L (98-107); CREATININE RESULT 1.96 mg/dL (0.52-1.25); GLUCOSE 216 mg/dL (75-110); MAGNESIUM 1.4 mg/dL (1.6-2.3); PHOSPHORUS 3.1 mg/dL (2.5-4.5); POTASSIUM 3.8 mmol/L (3.6-5.0)
[2016-09-30] MEDS: HEPARIN SOD (PORCINE) 5,000 UNIT/ML 1 ML SYRINGE SUBCUT SCH ×3 (05:35→22:23)
[2016-09-30] MEDS: HYDROCODONE/ACETAMINOPHEN 10-325 MG TABLET PO PRN ×3 (05:35→20:23)
--- NOTE | 2016-09-30 08:15 | PDOC PROGRESS REPORT ---
Subjective Progress Note for:: 09/30/16 Subjective:: The patient states to feel slightly better. She has received D5W overnight and her blood sugars are in the mid 200s. She still feels weak. She states that she did not feel well last week she might have had a virus. She was seen by the oncologist and had her H&H check which was normal Physical Exam Vital Signs: Temp Pulse Resp BP Pulse Ox 97.7 F 62 18 168/87 H 97 09/30/16 03:36 09/30/16 07:00 09/30/16 03:36 09/30/16 03:36 09/30/16 03:36 Intake & Output 09/29/16 09/30/16 10/01/16 06:59 06:59 06:59 Intake Total 2876 Output Total 1550 Balance 1326 Weight 77.8 kg General appearance: PRESENT: no acute distress Head exam: PRESENT: atraumatic Eye exam: PRESENT: conjunctiva pink Neck exam: ABSENT: JVD Respiratory exam: PRESENT: clear to auscultation dion Cardiovascular exam: PRESENT: +S1, +S2, systolic murmur Pulses: PRESENT: +1 pedal pulses bilateral Vascular exam: PRESENT: normal capillary refill GI/Abdominal exam: PRESENT: normal bowel sounds, soft Extremities exam: PRESENT: full ROM Musculoskeletal exam: PRESENT: tenderness Neurological exam: PRESENT: alert, awake Psychiatric exam: PRESENT: flat affect Results Laboratory Results: 09/30/16 03:52 09/30/16 03:52 09/29/16 09/30/16 09/30/16 15:41 03:52 03:52 WBC 5.4 RBC 3.22 L Hgb 10.0 L Hct 30.3 L MCV 94 MCH 31.0 MCHC 32.9 RDW 16.7 H Plt Count 170 Seg Neutrophils % 66.2 Lymphocytes % 22.2 Monocytes % 7.9 Eosinophils % 3.0 Basophils % 0.7 Absolute Neutrophils 3.5 Absolute Lymphocytes 1.2 Absolute Monocytes 0.4 Absolute Eosinophils 0.2 Absolute Basophils 0.0 Sodium 142.0 Potassium 3.8 Chloride 102 Carbon Dioxide 29 Anion Gap 11 BUN 44 H Creatinine 1.96 H Est GFR ( Amer) 30 L Est GFR (Non-Af Amer) 24 L Glucose 216 H Calcium 10.0 Phosphorus 3.1 Magnesium 1.6 1.4 L Impressions: Chest X-Ray 09/29/16 00:00 IMPRESSION: No acute abnormality in the chest. Assessment & Plan - Diagnosis (1) Diabetes mellitus type 2 Is this a current diagnosis for this admission?: YesPlan: Controlled with medication (2) Hypoglycemia Is this a current diagnosis for this admission?: YesPlan: Most probably related to viral syndrome prior to admission. The symptoms have resolved and the blood sugars are in the mid 200s with D5W (3) Chronic kidney disease, stage IV (severe) Is this a current diagnosis for this admission?: YesPlan: Stable with IV hydration (4) Coronary artery disease Qualifiers: Coronary Disease-Associated Artery/Lesion type: [place] artery [place] vs. transplanted heart: [place] heart Associated angina: without angina Qualified Code(s): I25.10 - Atherosclerotic heart disease of [place] coronary artery without angina pectoris Is this a current diagnosis for this admission?: YesPlan: Stable with current treatment (5) Hypokalemia Is this a current diagnosis for this admission?: YesPlan: Resolved with supplementation (6) Hypomagnesemia Is this a current diagnosis for this admission?: YesPlan: Resolved with supplementation
[2016-09-30] MEDS ORDERED: (PENDING PHARMACY ID) (Esomeprazole Mag Trihydrate [Nexium] 40 MG) PO SCH (10:00)
[2016-09-30] MEDS ORDERED: FENOFIBRATE NANOCRYSTALLIZED PO SCH (10:00)
[2016-09-30] MEDS ORDERED: ALLOPURINOL 100 MG TABLET PO SCH (10:00)
[2016-09-30] MEDS: CARVEDILOL 6.25 MG TABLET PO SCH ×2 (10:05→22:21)
[2016-09-30] MEDS: FLUTICASONE NASAL SPRAY 50 MCG/SPRY 120 SPRAY/16 GM NASL SCH ×2 (10:05→22:23)
[2016-09-30] MEDS: MAGNESIUM OXIDE 400 MG TABLET PO SCH ×2 (10:06→18:34)
[2016-09-30] MEDS: LANSOPRAZOLE 30 MG TAB.RAP.DR PO SCH (10:06)
[2016-09-30] MEDS: LOSARTAN POTASSIUM 50 MG TABLET PO SCH (10:06)
[2016-09-30] MEDS: ASPIRIN 81 MG TABLET, CHEWABLE PO SCH (10:06)
[2016-09-30] MEDS: SUCRALFATE 1 GM TABLET PO SCH ×3 (10:07→22:22)
[2016-09-30] MEDS: ISOSORBIDE MONONITRATE 60 MG TAB.ER.24H PO SCH (10:07)
[2016-09-30] MEDS: PAROXETINE HCL 20 MG TABLET PO SCH (10:08)
[2016-09-30] MEDS: ALLOPURINOL 100 MG TABLET PO SCH (10:08)
[2016-09-30] MEDS: AMLODIPINE BESYLATE 10 MG TABLET PO SCH (10:09)
[2016-09-30] MEDS: FENOFIBRATE NANOCRYSTALLIZED 145 MG TABLET PO SCH (10:14)
[2016-09-30] MEDS: DOCUSATE SODIUM 100 MG CAPSULE PO SCH ×2 (10:14→18:43)
[2016-09-30] MEDS: INSULIN REG, HUMAN 100 UNIT/ML 3 ML VIAL (PYX) SUBCUT PRN ×3 (12:06→22:56)
[2016-09-30] MEDS: ANASTROZOLE 1 MG TABLET PO SCH (22:17)
[2016-10-01] MEDS: HYDROCODONE/ACETAMINOPHEN 10-325 MG TABLET PO PRN ×4 (02:18→21:34)
[2016-10-01 05:40] LABS: ABSOLUTE EOSINOPHILS # (AUTO) 0.2 10^3/uL (0.0-0.6); ABSOLUTE LYMPHOCYTES (AUTO) 1.1 10^3/uL (0.5-4.7); ABSOLUTE MONOCYTES (AUTO) 0.4 10^3/uL (0.1-1.4); ABSOLUTE NEUT (AUTO) 4.3 10^3/uL (1.7-8.2); BASOPHILS % (AUTO) 0.6 % (0-2); EOSINOPHILS % (AUTO) 2.9 % (0-6); HEMATOCRIT 27.6 % (36.0-47.0); HEMOGLOBIN 9.3 g/dL (12.0-15.5); HGB HCT DIFFERENCE 0.3; LYMPHOCYTES % (AUTO) 17.9 % (13-45); MEAN CORPUSCULAR HEMOGLOBIN 31.3 pg (27.0-33.4); MEAN CORPUSCULAR HGB CONC 33.5 g/dL (32.0-36.0); MEAN CORPUSCULAR VOLUME 93 fl (80-97); MONOCYTES % (AUTO) 6.8 % (3-13); RED BLOOD COUNT 2.97 10^6/uL (3.72-5.28); RED CELL DISTRIBUTION WIDTH 16.6 % (11.5-14.0); SEGMENTED NEUTROPHILS % (AUTO) 71.8 % (42-78)
[2016-10-01] MEDS: HEPARIN SOD (PORCINE) 5,000 UNIT/ML 1 ML SYRINGE SUBCUT SCH ×3 (05:52→21:30)
[2016-10-01 06:08] LABS: ALANINE AMINOTRANSFERASE 31 U/L (9-52); ALBUMIN 3.5 g/dL (3.5-5.0); ALKALINE PHOSPHATASE 63 U/L (38-126); ANION GAP 8 (5-19); ASPARTATE AMINO TRANSFERASE 25 U/L (14-36); BILIRUBIN,TOTAL 0.6 mg/dL (0.2-1.3); BLOOD UREA NITROGEN 37 mg/dL (7-20); CALCIUM 10.2 mg/dL (8.4-10.2); CARBON DIOXIDE 29 mmol/L (22-30); CHLORIDE 101 mmol/L (98-107); CREATININE RESULT 1.47 mg/dL (0.52-1.25); GLUCOSE 203 mg/dL (75-110); POTASSIUM 3.9 mmol/L (3.6-5.0); SODIUM 138.4 mmol/L (137-145); TOTAL PROTEIN 6.3 g/dL (6.3-8.2)
[2016-10-01] MEDS: PAROXETINE HCL 20 MG TABLET PO SCH (07:57)
[2016-10-01] MEDS: SUCRALFATE 1 GM TABLET PO SCH ×4 (07:58→21:31)
--- NOTE | 2016-10-01 08:16 | PDOC PROGRESS REPORT ---
Subjective Progress Note for:: 10/01/16 Subjective:: The patient is complaining of not feeling well. She did not sleep well. She is complaining of some runny nose and generalized discomfort. She cannot pinpoint any particular symptoms. Physical Exam Vital Signs: Temp Pulse Resp BP Pulse Ox 98.4 F 50 L 19 156/61 H 96 10/01/16 03:00 10/01/16 03:00 10/01/16 03:00 10/01/16 03:00 10/01/16 03:00 Intake & Output 09/30/16 10/01/16 10/02/16 06:59 06:59 06:59 Intake Total 2876 2226 Output Total 1550 8 Balance 1326 2218 Weight 77.8 kg 77.8 kg General appearance: PRESENT: mild distress Head exam: PRESENT: atraumatic Eye exam: PRESENT: conjunctiva pink Neck exam: ABSENT: carotid bruit, JVD Respiratory exam: PRESENT: crackles Cardiovascular exam: PRESENT: bradycardia Pulses: PRESENT: +1 pedal pulses bilateral GI/Abdominal exam: PRESENT: normal bowel sounds, soft Extremities exam: PRESENT: full ROM Musculoskeletal exam: PRESENT: ambulatory Results Laboratory Results: 10/01/16 04:47 10/01/16 04:47 10/01/16 10/01/16 04:47 04:47 WBC 6.0 RBC 2.97 L Hgb 9.3 L Hct 27.6 L MCV 93 MCH 31.3 MCHC 33.5 RDW 16.6 H Plt Count 157 Seg Neutrophils % 71.8 Lymphocytes % 17.9 Monocytes % 6.8 Eosinophils % 2.9 Basophils % 0.6 Absolute Neutrophils 4.3 Absolute Lymphocytes 1.1 Absolute Monocytes 0.4 Absolute Eosinophils 0.2 Absolute Basophils 0.0 Sodium 138.4 Potassium 3.9 Chloride 101 Carbon Dioxide 29 Anion Gap 8 BUN 37 H Creatinine 1.47 H Est GFR ( Amer) 41 L Est GFR (Non-Af Amer) 34 L Glucose 203 H Calcium 10.2 Total Bilirubin 0.6 AST 25 ALT 31 Alkaline Phosphatase 63 Total Protein 6.3 Albumin 3.5 Impressions: Chest X-Ray 09/29/16 00:00 IMPRESSION: No acute abnormality in the chest. Assessment & Plan - Diagnosis (1) Diabetes mellitus type 2 Is this a current diagnosis for this admission?: YesPlan: Much improved with D5W. Her blood sugar is anywhere between 85 and 150 (2) Hypoglycemia Is this a current diagnosis for this admission?: YesPlan: Resolved with infusion of D5W (3) Chronic kidney disease, stage IV (severe) Is this a current diagnosis for this admission?: YesPlan: Stable (4) Coronary artery disease Qualifiers: Coronary Disease-Associated Artery/Lesion type: [place] artery [place] vs. transplanted heart: [place] heart Associated angina: without angina Qualified Code(s): I25.10 - Atherosclerotic heart disease of [place] coronary artery without angina pectoris Is this a current diagnosis for this admission?: Yes (5) Hypokalemia Is this a current diagnosis for this admission?: YesPlan: Resolved (6) Hypomagnesemia Is this a current diagnosis for this admission?: YesPlan: Improved with supplementation. We'll recheck the level in the morning
[2016-10-01] MEDS: INSULIN REG, HUMAN 100 UNIT/ML 3 ML VIAL (PYX) SUBCUT PRN (08:58)
[2016-10-01] MEDS: ONDANSETRON HCL INJ/PF 4 MG/2 ML SDV IV PRN ×2 (09:10→11:25)
[2016-10-01] MEDS: LANSOPRAZOLE 30 MG TAB.RAP.DR PO SCH (09:10)
[2016-10-01] MEDS: MAGNESIUM OXIDE 400 MG TABLET PO SCH ×2 (11:52→17:46)
[2016-10-01] MEDS: AMLODIPINE BESYLATE 10 MG TABLET PO SCH (11:52)
[2016-10-01] MEDS: ASPIRIN 81 MG TABLET, CHEWABLE PO SCH (11:53)
[2016-10-01] MEDS: ALLOPURINOL 100 MG TABLET PO SCH (11:53)
[2016-10-01] MEDS: FENOFIBRATE NANOCRYSTALLIZED 145 MG TABLET PO SCH (11:53)
[2016-10-01] MEDS: ISOSORBIDE MONONITRATE 60 MG TAB.ER.24H PO SCH (11:54)
[2016-10-01] MEDS: LOSARTAN POTASSIUM 50 MG TABLET PO SCH (11:54)
[2016-10-01] MEDS: DOCUSATE SODIUM 100 MG CAPSULE PO SCH ×2 (11:54→17:55)
[2016-10-01] MEDS: CARVEDILOL 6.25 MG TABLET PO SCH ×2 (11:55→21:29)
[2016-10-01] MEDS: FLUTICASONE NASAL SPRAY 50 MCG/SPRY 120 SPRAY/16 GM NASL SCH ×2 (11:55→21:29)
[2016-10-01] MEDS: ANASTROZOLE 1 MG TABLET PO SCH (21:30)
[2016-10-01] MEDS ORDERED: INSULIN REG, HUMAN 100 UNIT/ML 3 ML VIAL (PYX) SUBCUT ONE (23:30)
[2016-10-02] MEDS: HYDROCODONE/ACETAMINOPHEN 10-325 MG TABLET PO PRN ×3 (04:41→19:12)
[2016-10-02 05:12] LABS: ABSOLUTE BASOPHILS # (AUTO) 0.1 10^3/uL (0.0-0.2); ABSOLUTE EOSINOPHILS # (AUTO) 0.1 10^3/uL (0.0-0.6); ABSOLUTE LYMPHOCYTES (AUTO) 0.8 10^3/uL (0.5-4.7); ABSOLUTE MONOCYTES (AUTO) 0.4 10^3/uL (0.1-1.4); ABSOLUTE NEUT (AUTO) 4.3 10^3/uL (1.7-8.2); EOSINOPHILS % (AUTO) 2.1 % (0-6); LYMPHOCYTES % (AUTO) 14.7 % (13-45); MEAN CORPUSCULAR HEMOGLOBIN 30.9 pg (27.0-33.4); MEAN CORPUSCULAR HGB CONC 33.4 g/dL (32.0-36.0); MEAN CORPUSCULAR VOLUME 93 fl (80-97); RED BLOOD COUNT 2.91 10^6/uL (3.72-5.28); RED CELL DISTRIBUTION WIDTH 16.2 % (11.5-14.0); SEGMENTED NEUTROPHILS % (AUTO) 75.2 % (42-78); WHITE BLOOD COUNT 5.7 10^3/uL (4.0-10.5)
[2016-10-02] MEDS: HEPARIN SOD (PORCINE) 5,000 UNIT/ML 1 ML SYRINGE SUBCUT SCH ×3 (05:28→21:20)
[2016-10-02 05:43] LABS: ANION GAP 7 (5-19); BLOOD UREA NITROGEN 31 mg/dL (7-20); CALCIUM 10.4 mg/dL (8.4-10.2); CARBON DIOXIDE 31 mmol/L (22-30); CHLORIDE 101 mmol/L (98-107); CREATININE RESULT 1.47 mg/dL (0.52-1.25); GLUCOSE 170 mg/dL (75-110); MAGNESIUM 1.7 mg/dL (1.6-2.3); POTASSIUM 4.1 mmol/L (3.6-5.0); SODIUM 139.3 mmol/L (137-145)
[2016-10-02] MEDS: PAROXETINE HCL 20 MG TABLET PO SCH (08:27)
[2016-10-02] MEDS: SUCRALFATE 1 GM TABLET PO SCH ×4 (08:28→21:20)
[2016-10-02] MEDS: INSULIN REG, HUMAN 100 UNIT/ML 3 ML VIAL (PYX) SUBCUT PRN ×4 (08:35→21:20)
[2016-10-02] MEDS: FENOFIBRATE NANOCRYSTALLIZED 145 MG TABLET PO SCH (10:46)
[2016-10-02] MEDS: ISOSORBIDE MONONITRATE 60 MG TAB.ER.24H PO SCH (10:46)
[2016-10-02] MEDS: AMLODIPINE BESYLATE 10 MG TABLET PO SCH (10:47)
[2016-10-02] MEDS: MAGNESIUM OXIDE 400 MG TABLET PO SCH ×2 (10:47→19:09)
[2016-10-02] MEDS: CARVEDILOL 6.25 MG TABLET PO SCH ×2 (10:47→21:20)
[2016-10-02] MEDS: ALLOPURINOL 100 MG TABLET PO SCH (10:47)
[2016-10-02] MEDS: LANSOPRAZOLE 30 MG TAB.RAP.DR PO SCH (10:47)
[2016-10-02] MEDS: LOSARTAN POTASSIUM 50 MG TABLET PO SCH (10:48)
[2016-10-02] MEDS: ASPIRIN 81 MG TABLET, CHEWABLE PO SCH (10:48)
[2016-10-02] MEDS: DOCUSATE SODIUM 100 MG CAPSULE PO SCH ×2 (10:49→19:10)
[2016-10-02] MEDS: FLUTICASONE NASAL SPRAY 50 MCG/SPRY 120 SPRAY/16 GM NASL SCH ×2 (10:52→21:17)
--- NOTE | 2016-10-02 11:46 | PDOC PROGRESS REPORT ---
Subjective Progress Note for:: 10/02/16 Subjective:: The patient is seen in rounds this morning. She is complaining of not feeling well. She cannot pinpoint. She is complaining of some epigastric discomfort and some shortness of breath. She feels very weak. Her blood sugars are over 200. Physical Exam Vital Signs: Temp Pulse Resp BP Pulse Ox 98.9 F 57 L 22 H 168/53 H 98 10/02/16 04:35 10/02/16 07:00 10/02/16 04:35 10/02/16 04:35 10/02/16 04:35 Intake & Output 10/01/16 10/02/16 10/03/16 06:59 06:59 06:59 Intake Total 2226 1646 Output Total 8 Balance 2218 1646 Weight 77.8 kg 78.4 kg General appearance: PRESENT: mild distress Head exam: PRESENT: atraumatic Eye exam: PRESENT: conjunctiva pink Neck exam: ABSENT: JVD, lymphadenopathy Respiratory exam: PRESENT: crackles Cardiovascular exam: PRESENT: irregular rhythm, systolic murmur Pulses: PRESENT: +1 pedal pulses bilateral GI/Abdominal exam: PRESENT: normal bowel sounds, soft, tenderness Additonal comments: Mildly tender in the epigastrium but no guarding no rebound Extremities exam: PRESENT: full ROM Musculoskeletal exam: PRESENT: ambulatory Neurological exam: PRESENT: alert, awake Results Laboratory Results: 10/02/16 04:30 10/02/16 04:30 10/02/16 10/02/16 04:30 04:30 WBC 5.7 RBC 2.91 L Hgb 9.0 L Hct 27.0 L MCV 93 MCH 30.9 MCHC 33.4 RDW 16.2 H Plt Count 148 L Seg Neutrophils % 75.2 Lymphocytes % 14.7 Monocytes % 7.0 Eosinophils % 2.1 Basophils % 1.0 Absolute Neutrophils 4.3 Absolute Lymphocytes 0.8 Absolute Monocytes 0.4 Absolute Eosinophils 0.1 Absolute Basophils 0.1 Sodium 139.3 Potassium 4.1 Chloride 101 Carbon Dioxide 31 H Anion Gap 7 BUN 31 H Creatinine 1.47 H Est GFR ( Amer) 41 L Est GFR (Non-Af Amer) 34 L Glucose 170 H Calcium 10.4 H Magnesium 1.7 Impressions: Chest X-Ray 09/29/16 00:00 IMPRESSION: No acute abnormality in the chest. Assessment & Plan - Diagnosis (1) Diabetes mellitus type 2 Is this a current diagnosis for this admission?: YesPlan: Glucose or over 200. We'll continue with sliding scale coverage (2) Hypoglycemia Is this a current diagnosis for this admission?: Yes (3) Chronic kidney disease, stage IV (severe) Is this a current diagnosis for this admission?: YesPlan: Stable (4) Coronary artery disease Qualifiers: Coronary Disease-Associated Artery/Lesion type: [place] artery [place] vs. transplanted heart: [place] heart Associated angina: without angina Qualified Code(s): I25.10 - Atherosclerotic heart disease of [place] coronary artery without angina pectoris Is this a current diagnosis for this admission?: YesPlan: We'll obtain a cardiology consultation and follow-up (5) Hypokalemia Is this a current diagnosis for this admission?: YesPlan: Resolved (6) Hypomagnesemia Is this a current diagnosis for this admission?: YesPlan: Improved with supplementation. We'll recheck the level in the morning (7) GERD (gastroesophageal reflux disease) Qualifiers: Esophagitis presence: without esophagitis Qualified Code(s): K21.9 - Gastro-esophageal reflux disease without esophagitis Is this a current diagnosis for this admission?: YesPlan: We'll evaluate possible exacerbation of high alcohol hernia and GERD. Will order an upper GI series (8) Anemia of chronic disease Is this a current diagnosis for this admission?: YesPlan: Stable we will continue with current medication (9) Generalized weakness Plan: Presently receiving physical therapy and range of motion
[2016-10-02] MEDS ORDERED: LOPERAMIDE HCL 2 MG CAPSULE PO PRN (12:48)
[2016-10-02] MEDS: ANASTROZOLE 1 MG TABLET PO SCH (21:20)
[2016-10-03] MEDS: HYDROCODONE/ACETAMINOPHEN 10-325 MG TABLET PO PRN ×4 (02:36→23:37)
[2016-10-03 05:35] LABS: ABSOLUTE EOSINOPHILS # (AUTO) 0.1 10^3/uL (0.0-0.6); ABSOLUTE LYMPHOCYTES (AUTO) 0.7 10^3/uL (0.5-4.7); ABSOLUTE MONOCYTES (AUTO) 0.4 10^3/uL (0.1-1.4); ABSOLUTE NEUT (AUTO) 4.5 10^3/uL (1.7-8.2); BASOPHILS % (AUTO) 0.8 % (0-2); EOSINOPHILS % (AUTO) 2.1 % (0-6); HEMOGLOBIN 8.6 g/dL (12.0-15.5); HGB HCT DIFFERENCE -0.2; LYMPHOCYTES % (AUTO) 12.6 % (13-45); MEAN CORPUSCULAR HGB CONC 33.2 g/dL (32.0-36.0); MEAN CORPUSCULAR VOLUME 93 fl (80-97); MONOCYTES % (AUTO) 6.2 % (3-13); RED BLOOD COUNT 2.79 10^6/uL (3.72-5.28); RED CELL DISTRIBUTION WIDTH 16.1 % (11.5-14.0); SEGMENTED NEUTROPHILS % (AUTO) 78.3 % (42-78); WHITE BLOOD COUNT 5.7 10^3/uL (4.0-10.5)
[2016-10-03] MEDS: HEPARIN SOD (PORCINE) 5,000 UNIT/ML 1 ML SYRINGE SUBCUT SCH (05:41)
[2016-10-03 05:52] LABS: ALANINE AMINOTRANSFERASE 31 U/L (9-52); ALBUMIN 3.4 g/dL (3.5-5.0); ALKALINE PHOSPHATASE 66 U/L (38-126); ANION GAP 10 (5-19); ASPARTATE AMINO TRANSFERASE 31 U/L (14-36); BILIRUBIN,TOTAL 0.8 mg/dL (0.2-1.3); BLOOD UREA NITROGEN 35 mg/dL (7-20); CALCIUM 10.1 mg/dL (8.4-10.2); CARBON DIOXIDE 27 mmol/L (22-30); CHLORIDE 98 mmol/L (98-107); CREATININE RESULT 1.41 mg/dL (0.52-1.25); GLUCOSE 212 mg/dL (75-110); POTASSIUM 4.3 mmol/L (3.6-5.0); SODIUM 134.9 mmol/L (137-145); TOTAL PROTEIN 6.2 g/dL (6.3-8.2)
[2016-10-03] MEDS: SUCRALFATE 1 GM TABLET PO SCH ×4 (08:26→21:23)
[2016-10-03] MEDS: PAROXETINE HCL 20 MG TABLET PO SCH (08:26)
[2016-10-03] MEDS: ONDANSETRON HCL INJ/PF 4 MG/2 ML SDV IV PRN (08:38)
--- NOTE | 2016-10-03 08:52 | PDOC PROGRESS REPORT ---
Subjective Progress Note for:: 10/03/16 Subjective:: The patient complaining of not feeling well. She still having some epigastric discomfort. She is scheduled for a upper endoscopy. Her H&H has dropped. I have stopped the heparin. Physical Exam Vital Signs: Temp Pulse Resp BP Pulse Ox 98.1 F 61 18 166/44 H 100 10/03/16 04:13 10/03/16 07:00 10/03/16 04:13 10/03/16 04:13 10/03/16 05:59 Intake & Output 10/02/16 10/03/16 10/04/16 06:59 06:59 06:59 Intake Total 1646 365 Balance 1646 365 Weight 78.4 kg 79.3 kg General appearance: PRESENT: mild distress Head exam: PRESENT: atraumatic Eye exam: PRESENT: conjunctiva pink Neck exam: PRESENT: tenderness. ABSENT: JVD Respiratory exam: PRESENT: crackles Cardiovascular exam: PRESENT: RRR, +S1, +S2 Pulses: PRESENT: +1 pedal pulses bilateral GI/Abdominal exam: PRESENT: soft, tenderness. ABSENT: guarding Extremities exam: PRESENT: full ROM Musculoskeletal exam: PRESENT: ambulatory Neurological exam: PRESENT: alert, awake Results Laboratory Results: 10/03/16 04:22 10/03/16 04:22 10/03/16 10/03/16 04:22 04:22 WBC 5.7 RBC 2.79 L Hgb 8.6 L Hct 26.0 L MCV 93 MCH 31.0 MCHC 33.2 RDW 16.1 H Plt Count 135 L Seg Neutrophils % 78.3 H Lymphocytes % 12.6 L Monocytes % 6.2 Eosinophils % 2.1 Basophils % 0.8 Absolute Neutrophils 4.5 Absolute Lymphocytes 0.7 Absolute Monocytes 0.4 Absolute Eosinophils 0.1 Absolute Basophils 0.0 Sodium 134.9 L Potassium 4.3 Chloride 98 Carbon Dioxide 27 Anion Gap 10 BUN 35 H Creatinine 1.41 H Est GFR ( Amer) 43 L Est GFR (Non-Af Amer) 36 L Glucose 212 H Calcium 10.1 Total Bilirubin 0.8 AST 31 ALT 31 Alkaline Phosphatase 66 Total Protein 6.2 L Albumin 3.4 L Impressions: Chest X-Ray 09/29/16 00:00 IMPRESSION: No acute abnormality in the chest. Assessment & Plan - Diagnosis (1) Diabetes mellitus type 2 Is this a current diagnosis for this admission?: YesPlan: Presently hyperglycemia and needed coverage with insulin no signs of hypoglycemia (2) Hypoglycemia Is this a current diagnosis for this admission?: Yes (3) Chronic kidney disease, stage IV (severe) Is this a current diagnosis for this admission?: YesPlan: Stable (4) Coronary artery disease Qualifiers: Coronary Disease-Associated Artery/Lesion type: [place] artery [place] vs. transplanted heart: [place] heart Associated angina: without angina Qualified Code(s): I25.10 - Atherosclerotic heart disease of [place] coronary artery without angina pectoris Is this a current diagnosis for this admission?: YesPlan: We'll obtain a cardiology consultation and follow-up (5) Hypokalemia Is this a current diagnosis for this admission?: Yes (6) Hypomagnesemia Is this a current diagnosis for this admission?: Yes (7) GERD (gastroesophageal reflux disease) Qualifiers: Esophagitis presence: without esophagitis Qualified Code(s): K21.9 - Gastro-esophageal reflux disease without esophagitis Is this a current diagnosis for this admission?: YesPlan: Scheduled for an upper GI series. We'll consult her chief technical officer for possible EGD if needed (8) Anemia of chronic disease Is this a current diagnosis for this admission?: YesPlan: Worsening H&H possibly related to upper GI bleed. We'll stop the heparin
--- NOTE | 2016-10-03 10:37 | CONSULTATION REPORT E ---
Consultation Report NAME: JACINTA LUNSFORD : 1935 AGE: 81Y DATE: 10/02/2016 407 A TO: KEN GIBSON M.D. FROM: YO CHASE M.D. Requesting Physician REASON FOR CONSULTATION: Chest pressure and shortness of breath. HISTORY OF PRESENT ILLNESS: The patient is an 81-year-old female with a history of diabetes mellitus, hypertension, and chronic kidney disease stage 4 and a history of diastolic heart failure who had a near syncopal episode in her home when she got up out of bed. She states that she was very weak and had significant shortness of breath even walking a few yards. Her blood sugar was found to be in the 40s and the patient was given dextrose and was started on a dextrose drip and was transferred to the emergency room by the EMT. Here, it was found that her potassium was 3.2 and her magnesium was very low at 0.8. In spite of replenishment of these, the patient continues to have continuous chest pressure in the epigastric area and lower chest area. She also has a history of GERD. She denies any pedal edema. She denies any palpitations, but she is very short of breath walking even a few feet. In July, the patient had a stress test which was negative after she bumped her troponin-I. The patient had some difficulty passing urine, but her urination is not painful. There is no chills, fever, cough or diarrhea. Today, the patient states that she can hardly walk a few feet without being short of breath. PAST MEDICAL HISTORY: Positive for: 1. She was admitted in August 2014 with complete heart block with symptoms of dizziness and near syncope and had a temporary pacemaker placed and subsequently was transferred to [facility] where she had a permanent pacemaker placed. She has no history of coronary artery disease. Her stress test was in July 2016 which was negative for ischemia or scar of ND. Echocardiogram showed a normal LV ejection fraction, moderate mitral regurgitation. 2. History of hypertension. 3. 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 4. History of GERD. 5. Chronic kidney disease stage 4. 6. History of gout. 7. History of renal artery stenosis with left renal artery stent placed. The last admission in July, vascular ultrasound showed that the stent was patent. 8. There is no history of sleep apnea. There is no history of asthma or COPD. 9. Moderate to severe mitral regurgitation. 10. History of depression. 11. History of left breast cancer and currently on medication for it. Full body bone scan was negative for any malignancy. It was positive for mild degenerative arthritis. The patient for breast cancer has not received radiation, chemotherapy or surgery. 12. Past history of GI bleed. 13. History of ulcers and GERD. PAST SURGICAL HISTORY: 1. Right lobe of thyroid removed. 2. History of abdominal umbilical hernia surgery. 3. History of intestinal bleed surgically corrected. 4. Left renal artery stent. 5. Permanent pacemaker placed. There is no history of coronary artery disease. FAMILY HISTORY: Positive for diabetes mellitus, CAD and hypertension. ALLERGIES: 1. CODEINE. 2. PENICILLIN. 3. HYDRALAZINE. 4. IV CONTRAST. 5. ATORVASTATIN. 6. SULFA. SOCIAL HISTORY: The patient does not smoke. There is no history of EtOH abuse. CODE STATUS: The patient is a FULL CODE. Her daughter is her surrogate healthcare decision maker. REVIEW OF SYSTEMS: CONSTITUTIONAL: No history of fever, chills, or rigors. Complains of generalized fatigue and weakness. HEAD: Denies headaches or head injury and no dizziness, but complains of generalized fatigue and weakness. EYES: No history of amblyopia or diplopia. No history of amaurosis fugax. EARS: The patient has decreased hearing. There is no history of tinnitus. No vertigo. NOSE: No history of hay fever. No history of nosebleeds. MOUTH: No history of altered taste sensation. No history of ulcers in the mouth. No bleeding from the gums. THROAT: No history of odynophagia or dysphagia. No history of recurrent sore throats. SKIN: There are no skin rashes or skin lesions. No pruritus. No yellowish discoloration of the skin. No skin cancer. NECK: No history of enlarged neck lymph nodes and no goiter. No painful swelling of the neck. LUNGS: No history of asthma or COPD, but her chest x-ray suggests COPD. There is no history of sleep apnea. No history of pulmonary embolism. No history of pleuritic chest pain. The patient in July when she was admitted with an elevated troponin-I had chest wall pain reproducible with . There is no history of hemoptysis. No wheezing or cough or sputum production. CARDIAC: History of hypertension present. History of continuous pressure in her epigastric region and lower chest area. She also states at times, she has dysphagia. She has no history of ND or anginal symptoms or coronary artery disease. She has a past history of noncardiac chest wall pain. She has a past history of SVT and history of transient atrial fibrillation with no recurrence. She has a history of complete heart block symptomatic status post dual-chamber permanent pacemaker placement. This is the first episode of near syncope, but the patient thinks that she was very drowsy and really did not pass out. She did not injure herself. Her blood sugar was 40. Her magnesium and potassium were low. RENAL: She has history of chronic kidney disease which is stage 4. Recently, her GFR used to be 17 on the last admission and at present, her GFR is improved to 34. There are no symptoms of UTI, but the patient has difficulty urinating, but no painful urination. ENDOCRINE: History of diabetes mellitus type 2 insulin dependent with chronic kidney disease stage 4. No history of polydipsia or polyuria. The patient had a hypoglycemic episode. No history of heart or cold intolerance. No history of hirsutism. No history of excessive sweating and no history of thyroid disease. NEUROLOGICAL: She has a past history of CVA, but no focal deficits, has fully recovered from it. There is no history of recurrent TIA or CVA. No history of sleep apnea. No history of seizures or migraines. MUSCULOSKELETAL: She has a history of arthritis, but no history of collagen vascular disease. GASTROINTESTINAL: History GERD present. No history of jaundice. Past history of diverticulitis present. History of hemorrhoids. History of hiatal hernia and irritable bowel syndrome. Past history of peptic ulcer disease and history of GI bleed in the past. The patient also at time to time has dysphagia, but no odynophagia. In the past, epigastric pain was helped with metoclopramide. METABOLIC: History of hyperlipidemia present. History of gout present. She has a history of mild to moderate obesity. HEMATOLOGIC: The patient has a history of anemia of chronic disease. No history of bleeding diathesis and no history of clotting disorders. VASCULAR: The patient has moderate stenosis of right external carotid artery and proximal internal carotid artery in the range of 25% in the past. Severe stenosis of the left external carotid artery of 50% and stenosis with a range greater than 70% moderate stenosis of the left mid-internal carotid artery of about greater than 50% in the range of 50% to 69%. There is no history of calf or buttock claudication. No history of DVT. History of stenting of the renal artery. PSYCHIATRIC: History of depression present. Also has a history of anxiety. There is no history of suicidal ideation. MEDICATIONS: 1. Aspirin 81 mg p.o. daily. 2. Arimidex 1 mg p.o. daily. 3. Nitroglycerin 0.4 mg sublingual p.r.n. 4. Hydrocodone/acetaminophen 1 tablet p.o. every 6 hours p.r.n. 5. Zofran 8 mg p.o. every 8 hours p.r.n. 6. Allopurinol 100 mg p.o. daily. 7. Amlodipine Norvasc 10 mg p.o. daily. 8. Ascorbic acid, vitamin C 500 mg daily. 9. Nexium 40 mg p.o. daily. 10. Fenofibrate 160 mg p.o. daily. 11. Fluticasone propionate Flonase 120 spray/16 g per pump 1 spray nasally every 12 hours. 12. Humulin insulin NPH/regular 75 units subcutaneously. 13. Isosorbide mononitrate 60 mg p.o. daily extended release. 14. Loratadine 10 mg p.o. daily. 15. Losartan 100 mg p.o. daily. 16. Metolazone 2.5 mg p.o. daily. 17. [place]-3 fish oil 1 g capsule 2 g p.o. b.i.d. 18. Paxil 20 mg p.o. daily. 19. KCl Klor-Con 10 mEq p.o. daily. 20. Crestor 10 mg p.o. daily. 21. Simethicone 80 mg p.o. q.i.d. p.r.n. 22. Carafate 1 g p.o. b.i.d. 23. Torsemide 20 mg tablet 3 tablets at 60 mg p.o. b.i.d. PHYSICAL EXAMINATION: GENERAL: On examination, the patient appears to be depressed and anxious. She is mildly to moderately obese, but well groomed. VITAL SIGNS: She is afebrile with temperature of 98 degrees Fahrenheit, pulse 63 beats per minute, blood pressure 162/54, respirations 20 per minute, O2 saturation 100% on 2L nasal cannula. HEENT: Head is atraumatic and normocephalic. Eyes; pupils are equal, round, regular, reactive to light and accommodation. Extraocular movements are normal. There is no conjunctival pallor. There is no scleral icterus. Ears; tympanic membranes are intact. External auditory canals are clear. Nose; there is no deviated nasal septum. There are no ulcers in the mouth. There is no bleeding from the gums. Throat; there is no redness of the oropharynx. There are no exudates in the throat. SKIN: There is no skin rash. There is no petechia or ecchymosis. There are no skin lesions. NECK: Supple. There is no JVD. There are bilateral carotid bruits present. Carotids are equal. There is no lymphadenopathy. There is no goiter. Trachea is central. LUNGS: Clear to auscultation and percussion. HEART: S1 and S2 are heard. There is no S3 gallop. There is no S4 gallop. There is murmur of mild aortic stenosis present with preserved A2. There is also murmur of mitral regurgitation present with radiation from the apex to the left axilla. There is no rub. ABDOMEN: Soft, nontender. There is no hepatosplenomegaly. Bowel sounds are well heard. EXTREMITIES: Femorals are diminished. There are no femoral bruits. Leg pulses are diminished. There is no pedal edema. There is no DVT or cellulitis. There is no calf tenderness. CENTRAL NERVOUS SYSTEM: The patient is conscious, awake, alert, oriented x3 with no focal deficits. PSYCHIATRIC: At present, the patient is slightly anxious, but her judgment and insight are intact. She is not agitated. IMAGING: The patient's chest x-ray shows stable position of pacemaker, right thyroid clips. There are no opacities, masses or pneumothorax. No pleural effusion. Mediastinum and hilar structures, no masses. normal. Heart enlarged without failure. Normal vasculature. Bones no acute findings. ELECTROCARDIOGRAM: Her EKG on 09/29/2016 shows AV dual paced rhythm. LABORATORY: Sodium 139.3, potassium 4.1, chloride 101, CO2 of 31, BUN 31, creatinine 1.47, GFR reduced at 35 mL which is now a stage 3 chronic kidney disease and glucose is 212, 242, and 233. Calcium 10.4, magnesium 1.7. White count 5700, hemoglobin 9, hematocrit 27, platelet count 148,000. Lipase 192.3. TSH 4.262, free T4 of 1.15. Troponin-I was 0.040 on 09/29/2016. Other labs noted. IMPRESSION: 1. Near syncope, most likely a combination of electrolyte imbalance and hypoglycemia. 2. Chest pressure most likely secondary to GERD/gastritis/hiatal hernia. 3. Epigastric pain most likely related to GERD, gastritis and hiatal hernia. 4. Moderate to severe mitral regurgitation, at present is moderate by echocardiogram on the admission of July 2016. 5. Past history of symptomatic bradycardia in the past with complete A-V block status post permanent pacemaker placement. 6. Hypertension not well controlled. 7. Hypomagnesemia, corrected. 8. Hypokalemia, corrected. 9. Diabetes mellitus type 2, insulin requiring with chronic kidney complications that is chronic kidney disease stage 3 at present. 10. Past history of old CVA with no recurrence, fully recovered. 11. Gastroesophageal reflux disease and hiatal hernia. 12. Chronic kidney disease, at present stage 3. 13. History of renal artery stenosis status post left renal artery stent. 14. History of gout. 15. History of mild aortic stenosis. 16. History of right breast cancer treated medically. RECOMMENDATIONS: 1. Continue Coreg and aspirin. 2. Continue isosorbide mononitrate. Will increase the dose if needed. 3. Note that the patient had an echocardiogram in July which showed a left ventricular ejection fraction of 65%. Left ventricular wall motion was normal. The left atrial size was normal. There was no evidence of mitral valve prolapse. There was mild mitral stenosis. There was a moderate amount of mitral regurgitation. There was mild aortic stenosis with a peak gradient of 27 mmHg. There was a mild amount of aortic regurgitation. There was mild amount of tricuspid regurgitation. The right ventricular systolic pressure was . Right atrial mean pressure of 5 to 10. There was no pericardial effusion. There is a pacemaker lead in the right ventricle. There is mild concentric left ventricular hypertrophy. 4. Would recommend to continue the patient on Nexium. 5. Would recommend a GI consult or upper GI series. 6. Also, the patient needs to see an outpatient psychiatrist since she feels very much depressed. TIME SPENT: Note, 45 minutes spent on this patient, more than 50% of the time spent on direct patient care, reviewing the patient's medications and also reviewing the patient's echo from previous admission and discussion with the patient and discussion with Dr. Chase, the attending physician. Note, the patient is a FULL CODE. Her daughter is her surrogate healthcare decision maker. DICTATING PHYSICIAN: KEN GIBSON M.D. [id number] PHY#: [id number] ID: [id number] JOB#: [id number] ACCT: [id number] cc:KEN GIBSON M.D. >
[2016-10-03] MEDS: LOSARTAN POTASSIUM 50 MG TABLET PO SCH (11:05)
[2016-10-03] MEDS: ALLOPURINOL 100 MG TABLET PO SCH (11:06)
[2016-10-03] MEDS: DOCUSATE SODIUM 100 MG CAPSULE PO SCH ×2 (11:06→17:31)
[2016-10-03] MEDS: FENOFIBRATE NANOCRYSTALLIZED 145 MG TABLET PO SCH (11:07)
[2016-10-03] MEDS: CARVEDILOL 6.25 MG TABLET PO SCH ×2 (11:07→21:23)
[2016-10-03] MEDS: LANSOPRAZOLE 30 MG TAB.RAP.DR PO SCH (11:07)
[2016-10-03] MEDS: ASPIRIN 81 MG TABLET, CHEWABLE PO SCH (11:08)
[2016-10-03] MEDS: MAGNESIUM OXIDE 400 MG TABLET PO SCH ×2 (11:08→17:31)
[2016-10-03] MEDS: AMLODIPINE BESYLATE 10 MG TABLET PO SCH (11:08)
[2016-10-03] MEDS: ISOSORBIDE MONONITRATE 60 MG TAB.ER.24H PO SCH (11:08)
[2016-10-03] MEDS: FLUTICASONE NASAL SPRAY 50 MCG/SPRY 120 SPRAY/16 GM NASL SCH ×2 (11:09→21:23)
--- NOTE | 2016-10-03 12:41 | PDOC CONSULTATION ---
Consultation Consult Date: 10/03/16 Attending physician:: ALEX BIGGS Consult reason:: epigastric pain History of Present Illness Admission Date/PCP: 09/29/16 11:52 YO CHASE, History of Present Illness: Patient was admitted over the weekend. She was admitted for near syncopal episode followed by some hypoglycemia. She does have a history of congestive heart failure. She had recently been seen as an outpatient. In August of this year she had a colonoscopy and an upper endoscopy. Her EGD did not reveal any ulcers. There is certainly some Estephania's hyperplasia noted. She is complaining of some epigastric to right upper quadrant pain. It is associated with some mild nausea and vomiting. She states that she has loss of appetite. She denies any melena. She denies any bright red blood per rectum. Her previous biopsies were negative for Helicobacter pylori. Earlier this morning she had an upper GI series and a small bowel follow-through ; awaiting for the results on that. When I went in to see her she was sipping on some liquids, she's not been NPO Cardiology is seeing her. We'll await on the results of x-ray tests and she'll need to be NPO for at least 8 hours prior to any planned upper endoscopy. Therefore will not be able to proceed today. We'll schedule her first thing in the morning depending on the results of her upper GI series. We'll need to rule out for possible peptic ulcer disease. Past Medical History Cardiac Medical History: Reports: Congestive Heart Failure, Coronary Artery Disease, Hypertension, Other - Valvular heart disease Denies: Atrial Fibrillation, Myocardial Infarction, Hyperlipidema, Peripheral Vascular Disease, Pulmonary Embolism, Heart Murmur Pulmonary Medical History: Reports: Asthma, Bronchitis, Chronic Obstructive Pulmonary Disease (COPD), Pneumonia Denies: Respiratory Failure, Sleep Apnea, Tuberculosis Neurological Medical History: Reports: Migraine Denies: Seizures Endocrine Medical History: Reports: Diabetes Mellitus Type 1, Diabetes Mellitus Type 2 Denies: Hyperthyroidism, Hypothyroidism Renal/ Medical History: Reports: Chronic Kidney Disease - Stage IV Denies: End Stage Renal Disease Malignancy Medical History: Reports: Breast Cancer Denies: Cervical Cancer, Leukemia, Lung Cancer, Ovarian Cancer GI Medical History: Reports: Diverticulitis, Gastroesophageal Reflux Disease Denies: Crohn's Disease, Hiatal Hernia Musculoskeltal Medical History: Reports: Arthritis, Gout Denies: Fibromyalgia Psychiatric Medical History: Reports: Depression Denies: Bipolar Disorder, Dementia, Post Traumatic Stress Disorder Hematology: Reports: Anemia Denies: Hemophilia, Sickle Cell Disease Infectious Medical History: Denies: HIV Past Surgical History Past Surgical History: Reports: Appendectomy - In 1961, Cholecystectomy, Hysterectomy Denies: Amputation, Section, Colostomy, Coronary Artery Bypass Graft , Gastric Bypass Surgery, Herniorrhaphy, Mastectomy, Pacemaker, Tonsillectomy, Tubal Ligation Social History Smoking Status: Never Smoker Frequency of Alcohol Use: None Hx Recreational Drug Use: No Drugs: None Hx Prescription Drug Abuse: No Family History Family History: Reviewed & Not Pertinent, CAD, DM, Hyperlipidemia, Hypertension Parental Family History Reviewed: Yes Children Family History Reviewed: Unknown Sibling(s) Family History Reviewed.: Unknown Medication/Allergy Home Medications: Allopurinol [Zyloprim 100 mg Tablet] 100 mg PO DAILY 09/29/16 Amlodipine Besylate [Norvasc 10 mg Tablet] 10 mg PO DAILY 09/29/16 Anastrozole [Arimidex 1 mg Tablet] 1 mg PO QHS 09/29/16 Ascorbic Acid [Vitamin C 500 mg Tablet] 500 mg PO DAILY 09/29/16 Aspirin [Aspirin 81 mg Chewable Tablet] 81 mg PO DAILY 09/29/16 Carvedilol [Coreg 6.25 mg Tablet] 6.25 mg PO Q12 09/29/16 Esomeprazole Magnesium [Nexium] 40 mg PO DAILY 09/29/16 Fenofibrate Nanocrystallized [Triglide] 160 mg PO DAILY 09/29/16 Fluticasone Propionate [Flonase Nasal [place] 50 Mcg/[place] 16 gm] 1 spray NASL Q12 09/29/16 Hum Insulin NPH/Reg Insulin Hm [Insulin Inj 70-30 (100 Unit/1 ml) 3 ml Vial] 75 unit SUBCUT BID 09/29/16 Hydrocodone/Acetaminophen [[place] 10-325 mg Tablet] 1 tab PO Q6HP PRN 09/29/16 Isosorbide Mononitrate [Imdur 60 mg Tablet.er] 60 mg PO DAILY 09/29/16 Loratadine 10 mg PO DAILY 09/29/16 Losartan Potassium [Cozaar 100 mg Tablet] 100 mg PO DAILY 09/29/16 Metolazone [Zaroxolyn 2.5 Mg Tablet] 2.5 mg PO DAILY 09/29/16 Nitroglycerin [Nitrostat] 0.4 mg SL Q5MP PRN 09/29/16 [place]-3 Acid Ethyl Esters [Lovaza 1 gm Capsule] 2 gm PO BID 09/29/16 Ondansetron HCl [Zofran 8 mg Tablet] 8 mg PO Q8HP PRN 09/29/16 Paroxetine HCl [Paxil 20 mg Tablet] 20 mg PO QAM 09/29/16 Potassium Chloride [Klor-Con 10 Meq Tablet.sa] 10 meq PO DAILY 09/29/16 Rosuvastatin Calcium [Crestor 10 mg Tablet] 10 mg PO DAILY 09/29/16 Simethicone [Gas-X] 80 mg PO QIDP PRN 09/29/16 Sucralfate [Carafate 1 gm Tablet] 1 gm PO BID 09/29/16 Torsemide [Demadex 20 mg Tablet] 60 mg PO BID 09/29/16 Allergies/Adverse Reactions: codeine [Codeine] Allergy (Severe, Verified 09/29/16 09:18) Hospitalized Penicillins Allergy (Severe, Verified 09/29/16 09:18) Redness, heat, swelling at site promethazine HCl [From Phenergan] Allergy (Unknown, Verified 09/29/16 09:18) PROBLEMS WITH LEGS Sulfa (Sulfonamide Antibiotics) Allergy (Unknown, Verified 09/29/16 09:18) Unknown reaction hydralazine HCl [From Apresoline] Adverse Reaction (Severe, Verified 09/29/16 09 :18) Cardiac arrest atorvastatin calcium [From Lipitor] Adverse Reaction (Verified 09/29/16 09:18) IV Contrast Allergy (Severe, Uncoded 09/29/16 09:18) ESRD Review of Systems Constitutional: ABSENT: fever(s), headache(s), night sweats, weakness Eyes: ABSENT: visual disturbances Ears: ABSENT: hearing changes Nose, Mouth, and Throat: ABSENT: mouth pain, sore throat Cardiovascular: ABSENT: orthropnea, palpitations Respiratory: ABSENT: dyspnea, hemoptysis Gastrointestinal: PRESENT: heartburn, nausea, vomiting. ABSENT: dysphagia, hematochezia Genitourinary: ABSENT: dysuria, hematuria Musculoskeletal: ABSENT: deformity, joint swelling Integumentary: ABSENT: lesions, pruritus Neurological: PRESENT: syncope. ABSENT: lack of coordination, tingling, vertigo Endocrine: ABSENT: heat intolerance, polydipsia, polyphagia, polyuria Hematologic/Lymphatic: ABSENT: easy bruising Physical Exam Vital Signs: Temp Pulse Resp BP Pulse Ox 97.4 F 61 16 155/61 H 99 10/03/16 12:00 10/03/16 12:00 10/03/16 12:00 10/03/16 12:00 10/03/16 12:00 Intake & Output 10/02/16 10/03/16 10/04/16 06:59 06:59 06:59 Intake Total 1646 365 Balance 1646 365 Weight 78.4 kg 79.3 kg General appearance: PRESENT: mild distress, well-developed, well-nourished Head exam: PRESENT: atraumatic, normocephalic Eye exam: PRESENT: EOMI, PERRLA. ABSENT: nystagmus, periorbital swelling, scleral icterus Mouth exam: ABSENT: moist, neck supple Throat exam: ABSENT: tonsillar exudate Neck exam: ABSENT: thyromegaly, tracheal deviation Respiratory exam: PRESENT: symmetrical, unlabored. ABSENT: chest wall tenderness, tachypnea Cardiovascular exam: PRESENT: RRR, +S1, +S2. ABSENT: rubs Pulses: PRESENT: normal carotid pulses GI/Abdominal exam: PRESENT: soft. ABSENT: Crenshaw's sign, rebound, rigid, tenderness Gentrourinary exam: PRESENT: lesions. ABSENT: urethral discharge Extremities exam: ABSENT: joint swelling Musculoskeletal exam: PRESENT: full ROM Neurological exam: PRESENT: alert, awake, oriented to person, oriented to place , reflexes normal, CN II-XII grossly intact Psychiatric exam: PRESENT: appropriate affect Skin exam: PRESENT: normal color. ABSENT: mottled, pallor, petechiae, urticaria , vesicles Results Laboratory Results: 10/03/16 04:22 10/03/16 04:22 10/03/16 10/03/16 04:22 04:22 WBC 5.7 RBC 2.79 L Hgb 8.6 L Hct 26.0 L MCV 93 MCH 31.0 MCHC 33.2 RDW 16.1 H Plt Count 135 L Seg Neutrophils % 78.3 H Lymphocytes % 12.6 L Monocytes % 6.2 Eosinophils % 2.1 Basophils % 0.8 Absolute Neutrophils 4.5 Absolute Lymphocytes 0.7 Absolute Monocytes 0.4 Absolute Eosinophils 0.1 Absolute Basophils 0.0 Sodium 134.9 L Potassium 4.3 Chloride 98 Carbon Dioxide 27 Anion Gap 10 BUN 35 H Creatinine 1.41 H Est GFR ( Amer) 43 L Est GFR (Non-Af Amer) 36 L Glucose 212 H Calcium 10.1 Total Bilirubin 0.8 AST 31 ALT 31 Alkaline Phosphatase 66 Total Protein 6.2 L Albumin 3.4 L Impressions: Chest X-Ray 09/29/16 00:00 IMPRESSION: No acute abnormality in the chest. Assessment & Plan - Diagnosis (1) Anemia of chronic disease Is this a current diagnosis for this admission?: YesPlan: Seems to be chronic, multifactorial. Recent EGD and colonoscopy done. Does not appear to have any lesions that bleeding. Previous biopsies in the small intestine noted. (2) Atypical chest pain Plan: Atypical chest pain with some epigastric to right upper quadrant discomfort. We'll await on upper GI series with small bowel follow-through. May need upper endoscopy. Risks, benefits and alternatives of the procedure including risks of bleeding, perforation requiring surgery I explained to the patient detail informed consent is obtained. She'll need to be NPO after midnight in order to get the procedure done. She recently came back having ingested some barium and is on clear liquids at this point in time. She would be at risk for aspiration Proceed in the a.m. (3) Hypomagnesemia Is this a current diagnosis for this admission?: YesPlan: Could be due to PPI use. Can discontinue for now and just H2 renee. - Time Time Spent: 50 to 70 Minutes
[2016-10-03] MEDS: INSULIN REG, HUMAN 100 UNIT/ML 3 ML VIAL (PYX) SUBCUT PRN ×2 (17:38→21:23)
--- NOTE | 2016-10-03 20:18 | PROGRESS NOTE E ---
Progress Note NAME: JACINTA LUNSFORD : 1935 AGE: 81Y DATE: 10/03/2016 ROOM: 407 SUBJECTIVE: The patient continues to have chest pressure and also shortness of breath and weakness. She also has orthopnea but no PND. There is no leg edema. There is no arrhythmia seen on the monitor. She did have an upper GI series; the report is below. OBJECTIVE: GENERAL: On examination, the patient appears to be depressed and anxious. She is mildly to moderately obese. VITAL SIGNS: She is afebrile with temperature 97.4 degrees Fahrenheit. Pulse is 61 beats per minute. Blood pressure 157/61. Respirations 16 per minute. O2 saturations are 99% on 2 L nasal cannula. HEENT: Head is atraumatic, normocephalic. Eyes: Pupils are equal, round, regular, reactive to light and accommodation. There is conjunctival pallor present. There is no scleral icterus. Extraocular movements are normal. ENT is negative. NECK: Supple. There is no JVD. There are bilateral carotid bruits present. Carotids are equal. There is no lymphadenopathy. There is no goiter. Trachea is central. LUNGS: Clear to auscultation and percussion. CARDIOVASCULAR: S1, S2 are heard. There is no S3 gallop. There is no S4 gallop. There is a murmur of mild aortic stenosis present with preserved A2. There is also murmur of mitral regurgitation present with radiation from the apex to the left axilla. There is no rub. ABDOMEN: Soft, nontender, obese. There is no hepatosplenomegaly. Bowel sounds are well heard. EXTREMITIES: Femorals are diminished. There are no femoral bruits. Leg pulses are diminished. There is no pedal edema. There is no DVT or cellulitis. There is no calf tenderness. CENTRAL NERVOUS SYSTEM: The patient is conscious, awake, alert, oriented x3 with no focal deficits. PSYCHIATRIC: At present, the patient appears to be slightly anxious and depressed. DIAGNOSTIC TESTS: The patient's upper GI and small bowel x-ray shows patient could only drink very small amounts of barium. Patient did not drink enough contrast for an effective small bowel followthrough. Neuromuscular coordination of swallow normal. No aspiration. Esophageal dysmotility, disorganized peristalsis due to *------* contractions. 12 mm tablet transit not administered; patient would not swallow the 12 mm barium tablet. Her esophageal mucosa is normal. Mucosa without masses or ulceration. Gastroesophageal junction: No hiatal hernia or reflux. Stomach normal without masses or ulcerations. Gastric outlet: No delay in emptying. Normal pylorus. Duodenal valve normal distention, no spasm or ulceration. Duodenal mucosa normal, no malrotation. Proximal small bowel normal as visualized. Jejunum: Normal mucosal pattern. No dilatation, segmentation strictures, or masses. Ileum not followed, not enough barium ingested by the patient. Terminal ileum and ileocecal valve were not visualized. The patient's white count is 5700; hemoglobin is down to 8.6; hematocrit is 26; platelet count is 135,000. Patient's sodium is 134.9, potassium 4.3. Chloride is 98. CO2 is 27. The patient's BUN is 35, creatinine 1.41. GFR is reduced at 36, patient with chronic kidney disease stage 3. The patient's is glucose is 212. The patient's calcium is 10.1. The patient's liver function tests are normal. The patient's albumin is 3.4; total protein is 6.2. ASSESSMENT: 1. NEAR SYNCOPE. Most likely a combination of electrolyte imbalance and hypoglycemia. 2. CHEST PRESSURE MOST LIKELY SECONDARY TO ESOPHAGEAL DYSMOTILITY. 3. EPIGASTRIC PAIN MOST LIKELY RELATED TO ESOPHAGUS MOTILITY. 4. MODERATE TO SEVERE MITRAL REGURGITATION. At present is moderate by electrocardiogram on admission of 07/2016. 5. 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 6. HYPERTENSION NOT EVERY WELL CONTROLLED. 7. HYPOMAGNESEMIA CORRECTED. 8. HYPOKALEMIA CORRECTED. 9. DIABETES MELLITUS TYPE 2 INSULIN REQUIRING WITH CHRONIC KIDNEY COMPLICATION THAT IS CHRONIC KIDNEY DISEASE STAGE 3. 10. 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 11. MOST LIKELY THE PATIENT ESOPHAGEAL DYSMOTILITY AND DISORGANIZED PERISTALSIS CAUSING THE PATIENT'S SYMPTOMS. 12. HISTORY OF RENAL ARTERY STENOSIS STATUS POST LEFT RENAL ARTERY STENT. 13. HISTORY OF GOUT. 14. HISTORY OF MILD AORTIC STENOSIS. 15. HISTORY OF RIGHT BREAST CANCER TREATED MEDICALLY. 16. NOTE THAT THE PATIENT HAS NO HIATAL HERNIA OR GASTROESOPHAGEAL REFLUX DISEASE. RECOMMENDATIONS: Continue Coreg and aspirin. Continue isosorbide mononitrate. The patient is being seen by racing driver. Continue the patient on Nexium. Would await the medicine tech of the GI consult. Upper GI series was discussed with the patient. Also, the patient needs fine tuning of her psychiatric medication since she appears to be much depressed and anxious. TIME SPENT: Note 30 minutes spent on this patient with more than 50% of the time spent in direct patient care and also reviewing the patient's medications and coordinating care with other physicians on the case. We will with you. DICTATING PHYSICIAN: KEN GIBSON M.D. [id number] PHY#: [id number] [id number] JOB#: [id number] ACCT: [id number] cc: >
[2016-10-03] MEDS: ANASTROZOLE 1 MG TABLET PO SCH (21:23)
[2016-10-04 06:37] LABS: ALANINE AMINOTRANSFERASE 38 U/L (9-52); ALBUMIN 3.6 g/dL (3.5-5.0); ALKALINE PHOSPHATASE 79 U/L (38-126); ANION GAP 9 (5-19); ASPARTATE AMINO TRANSFERASE 33 U/L (14-36); BILIRUBIN,TOTAL 0.7 mg/dL (0.2-1.3); BLOOD UREA NITROGEN 42 mg/dL (7-20); CALCIUM 10.2 mg/dL (8.4-10.2); CARBON DIOXIDE 28 mmol/L (22-30); CHLORIDE 99 mmol/L (98-107); GLUCOSE 262 mg/dL (75-110); POTASSIUM 4.5 mmol/L (3.6-5.0); SODIUM 136.1 mmol/L (137-145); TOTAL PROTEIN 6.1 g/dL (6.3-8.2)
[2016-10-04 07:26] LABS: ABSOLUTE EOSINOPHILS # (AUTO) 0.2 10^3/uL (0.0-0.6); ABSOLUTE LYMPHOCYTES (AUTO) 0.6 10^3/uL (0.5-4.7); ABSOLUTE MONOCYTES (AUTO) 0.3 10^3/uL (0.1-1.4); BASOPHILS % (AUTO) 0.7 % (0-2); EOSINOPHILS % (AUTO) 3.9 % (0-6); HEMATOCRIT 25.4 % (36.0-47.0); HEMOGLOBIN 8.5 g/dL (12.0-15.5); HGB HCT DIFFERENCE 0.1; LYMPHOCYTES % (AUTO) 15.6 % (13-45); MEAN CORPUSCULAR HGB CONC 33.3 g/dL (32.0-36.0); MEAN CORPUSCULAR VOLUME 93 fl (80-97); MONOCYTES % (AUTO) 6.4 % (3-13); RED BLOOD COUNT 2.73 10^6/uL (3.72-5.28); RED CELL DISTRIBUTION WIDTH 15.7 % (11.5-14.0); SEGMENTED NEUTROPHILS % (AUTO) 73.4 % (42-78); WHITE BLOOD COUNT 4.1 10^3/uL (4.0-10.5)
[2016-10-04] MEDS ORDERED: GLUCAGON,HUMAN RECOMB 1 MG INJ IM PRN (08:32)
[2016-10-04] MEDS ORDERED: DEXTROSE 40% GEL 15 GM TUBE PO PRN ×2 (08:32)
[2016-10-04] MEDS ORDERED: DEXTROSE 50%-WATER 25 GM/50 ML DISP.SYRIN IV PRN ×2 (08:32)
[2016-10-04] MEDS ORDERED: NORMAL SALINE 250 ML IV PRN ×2 (08:40)
--- NOTE | 2016-10-04 08:40 | PDOC PROGRESS REPORT ---
Subjective Progress Note for:: 10/04/16 Subjective:: The patient continues to feel weak. She is presently scheduled for an EGD. Discussed the option of blood transfusion. Her blood sugars are still elevated. Physical Exam Vital Signs: Temp Pulse Resp BP Pulse Ox 97.9 F 61 17 155/62 H 99 10/04/16 07:52 10/04/16 07:52 10/04/16 07:52 10/04/16 07:52 10/04/16 07:52 Intake & Output 10/03/16 10/04/16 10/05/16 06:59 06:59 06:59 Intake Total 365 305 Balance 365 305 Weight 79.3 kg 98 kg General appearance: PRESENT: mild distress Head exam: PRESENT: atraumatic Eye exam: PRESENT: conjunctiva pink Neck exam: ABSENT: carotid bruit Respiratory exam: PRESENT: clear to auscultation dion Cardiovascular exam: PRESENT: +S1, +S2 Pulses: PRESENT: +1 pedal pulses bilateral Vascular exam: PRESENT: normal capillary refill GI/Abdominal exam: PRESENT: soft, tenderness Extremities exam: PRESENT: full ROM Neurological exam: PRESENT: alert, awake Results Laboratory Results: 10/04/16 07:18 10/04/16 05:32 10/04/16 10/04/16 10/04/16 05:32 05:32 07:18 WBC Cancelled 4.1 RBC Cancelled 2.73 L Hgb Cancelled 8.5 L Hct Cancelled 25.4 L MCV Cancelled 93 MCH Cancelled 31.0 MCHC Cancelled 33.3 RDW Cancelled 15.7 H Plt Count Cancelled 145 L Seg Neutrophils % Cancelled 73.4 Lymphocytes % Cancelled 15.6 Monocytes % Cancelled 6.4 Eosinophils % Cancelled 3.9 Basophils % Cancelled 0.7 Absolute Neutrophils Cancelled 3.0 Absolute Lymphocytes Cancelled 0.6 Absolute Monocytes Cancelled 0.3 Absolute Eosinophils Cancelled 0.2 Absolute Basophils Cancelled 0.0 Sodium 136.1 L Potassium 4.5 Chloride 99 Carbon Dioxide 28 Anion Gap 9 BUN 42 H Creatinine 1.80 H Est GFR ( Amer) 33 L Est GFR (Non-Af Amer) 27 L Glucose 262 H Calcium 10.2 Total Bilirubin 0.7 AST 33 ALT 38 Alkaline Phosphatase 79 Total Protein 6.1 L Albumin 3.6 Impressions: Chest X-Ray 09/29/16 00:00 IMPRESSION: No acute abnormality in the chest. Upper GI and Small Bowel X-Ray 10/03/16 00:00 IMPRESSION: Disorganized esophageal contractions with few tertiary contractions. No stricture or esophageal obstruction. No hiatal hernia. No gastroesophageal reflux today. Limited view of the stomach and proximal small bowel is unremarkable. Assessment & Plan - Diagnosis (1) Diabetes mellitus type 2 Is this a current diagnosis for this admission?: YesPlan: Blood sugars have remained high. We will restart home insulins (2) Hypoglycemia Is this a current diagnosis for this admission?: Yes (3) Chronic kidney disease, stage IV (severe) Is this a current diagnosis for this admission?: YesPlan: Improved with hydration (4) Coronary artery disease Qualifiers: Coronary Disease-Associated Artery/Lesion type: [place] artery [place] vs. transplanted heart: [place] heart Associated angina: without angina Qualified Code(s): I25.10 - Atherosclerotic heart disease of [place] coronary artery without angina pectoris Is this a current diagnosis for this admission?: YesPlan: We'll obtain a cardiology consultation and follow-up (5) Hypokalemia Is this a current diagnosis for this admission?: Yes (6) Hypomagnesemia Is this a current diagnosis for this admission?: Yes (7) GERD (gastroesophageal reflux disease) Qualifiers: Esophagitis presence: without esophagitis Qualified Code(s): K21.9 - Gastro-esophageal reflux disease without esophagitis Is this a current diagnosis for this admission?: YesPlan: Scheduled for EGD (8) Anemia of chronic disease Is this a current diagnosis for this admission?: YesPlan: Her H&H remains low. That might be contributing to her tiredness. In a patient with coronary disease I would like to have an H&H about 9 so we will transfuse 2 units of packed red blood cells.
[2016-10-04] MEDS ORDERED: NALOXONE HCL INJ/PF 0.4 MG/1 ML SDV ONE (10:15)
[2016-10-04] MEDS ORDERED: DIPHENHYDRAMINE HCL 50 MG/ML VIAL ONE (10:16)
[2016-10-04] MEDS ORDERED: PROMETHAZINE HCL INJ 25 MG/1 ML VIAL ONE (10:16)
[2016-10-04] MEDS ORDERED: ONDANSETRON HCL INJ/PF 4 MG/2 ML SDV ONE (10:16)
[2016-10-04] MEDS ORDERED: FENTANYL CITRATE INJ/PF 100 MCG/2 ML AMPUL ONE (10:16)
[2016-10-04] MEDS ORDERED: MIDAZOLAM 2 MG/2 ML INJ ONE (10:16)
[2016-10-04] MEDS ORDERED: FLUMAZENIL INJ 0.5 MG/5 ML VIAL IV ONE (10:17)
[2016-10-04] MEDS ORDERED: GLUCAGON,HUMAN RECOMB 1 MG INJ ONE (10:17)
[2016-10-04] MEDS ORDERED: EPINEPHRINE INJ 1 MG/10 ML DISP.SYRIN ONE (10:17)
[2016-10-04] MEDS: SUCRALFATE 1 GM TABLET PO SCH ×4 (10:51→22:36)
[2016-10-04] MEDS: MIDAZOLAM 2 MG/2 ML INJ ONE ×2 (11:08→11:10)
--- NOTE | 2016-10-04 11:18 | Operative Report ---
Operative Report DATE OF SURGERY: 10/04/16 Operative Report: The risks benefits and alternatives of the procedure explained to the patient in detail and informed consent is obtained that GIF Olympus video scope was inserted into the patient's mouth and hypopharynx the esophagus is identified intubated and insufflated the scope was then advanced through the esophagus stomach and duodenum retroflexion maneuver is done the esophagus stomach and first and second portions of the duodenum examined PREOPERATIVE DIAGNOSIS: Epigastric pain POSTOPERATIVE DIAGNOSIS: Gastritis status post biopsy OPERATION: EGD with biopsy SURGEON: ALEX BIGGS ANESTHESIA: Moderate Sedation - 2 mg Versed. Conscious sedation monitoring time 30 minutes TISSUE REMOVED OR ALTERED: Small gastric specimen obtained to rule out for Helicobacter pylori COMPLICATIONS: None. ESTIMATED BLOOD LOSS: none. INTRAOPERATIVE FINDINGS: No ulcers noted. Mild gastritis. No active GI bleeding PROCEDURE: Patient tolerated the procedure well She minimal amount of medication She appears to have subjective complaints of shortness of breath she does have a low oxygen saturation even while on oxygen Question if she has symptoms of CHF She'll need to be treated for elevated blood pressure Restart clears advance as tolerated Patient sent back to her room in good condition No significant change of vitals during her procedure
[2016-10-04] MEDS: LOSARTAN POTASSIUM 50 MG TABLET PO SCH (12:24)
[2016-10-04] MEDS: AMLODIPINE BESYLATE 10 MG TABLET PO SCH (12:26)
[2016-10-04] MEDS: FAMOTIDINE 20 MG TABLET PO SCH ×2 (12:26→22:35)
[2016-10-04] MEDS: ASPIRIN 81 MG TABLET, CHEWABLE PO SCH (12:26)
[2016-10-04] MEDS: ALLOPURINOL 100 MG TABLET PO SCH (12:27)
[2016-10-04] MEDS: CARVEDILOL 6.25 MG TABLET PO SCH (12:27)
[2016-10-04] MEDS: PAROXETINE HCL 20 MG TABLET PO SCH (12:27)
[2016-10-04] MEDS: MAGNESIUM OXIDE 400 MG TABLET PO SCH ×2 (12:27→17:37)
[2016-10-04] MEDS: ISOSORBIDE MONONITRATE 60 MG TAB.ER.24H PO SCH (12:27)
[2016-10-04] MEDS: FENOFIBRATE NANOCRYSTALLIZED 145 MG TABLET PO SCH (12:28)
[2016-10-04] MEDS: DOCUSATE SODIUM 100 MG CAPSULE PO SCH ×2 (12:29→17:37)
[2016-10-04] MEDS: FLUTICASONE NASAL SPRAY 50 MCG/SPRY 120 SPRAY/16 GM NASL SCH ×2 (12:29→22:37)
[2016-10-04] MEDS: HUM INSULIN NPH/REG INSULIN HM 100 UNIT/1 ML 3 ML SUBCUT SCH (16:27)
--- NOTE | 2016-10-04 19:48 | PROGRESS NOTE E ---
Progress Note NAME: JACINTA LUNSFORD : 1935 AGE: 81Y DATE: 10/04/2016 ROOM: 407 SUBJECTIVE: The patient continues to complain of shortness of breath and epigastric and chest pressure. She had an EGD which showed gastritis and biopsy has been taken. She has orthopnea. There is no leg edema. There is no PND. There is no chest pain or discomfort consistent with angina. The patient's epigastric and lower chest pain is noncardiac. There is no erythema seen on the monitor. OBJECTIVE: GENERAL: On examination the patient is mild to moderately obese. She appears to be depressed and anxious. VITAL SIGNS: She is afebrile with temperature 98 degrees Fahrenheit. Pulse is 72 beats per minute. Blood pressure is 182/60. Respirations are 18 per minute. O2 saturations are 98% on 2.5 L nasal cannula. Note that when the patient had her EGD, when she was shifted from the bed to the stretcher to be taken up to the endoscopy her saturations fell down to 84%. Note back to 98%. HEENT: Head is atraumatic, normocephalic. Eyes; pupils are equal, round, regular, reactive to light and accommodation. There is conjunctival pallor present. There is no scleral icterus. Extraocular movements are normal. ENT is negative. NECK: Supple. There is no JVD. There are bilateral carotid bruits present. Carotids are equal. There is no lymphadenopathy. There is no goiter. Trachea is central. LUNGS: Clear to auscultation and percussion. CARDIOVASCULAR: S1, S2 is heard. There is no S3 gallop. There is no S4 gallop. There is a murmur of mild aortic stenosis present with preserved A2. There is also murmur of mitral regurgitation present. There is no rub. ABDOMEN: Soft, nontender, obese. There is no hepatosplenomegaly. Bowel sounds are well heard. EXTREMITIES: Femorals are diminished. There are no femoral bruits. Leg pulses are diminished. There is no pedal edema. There is no DVT or cellulitis. There is no calf tenderness. CENTRAL NERVOUS SYSTEM: The patient is conscious, awake, alert, oriented x3 with no focal deficits. PSYCHIATRIC: At present, the patient appears to be anxious and depressed, but is not agitated. LABORATORY DATA: The patient's white count is 4100, hemoglobin has dropped to 8.5, hematocrit is 25.4, and platelet count is 145,000. The patient's sodium is 136, potassium 4.5, chloride is 99, CO2 is 28. The patient's BUN is 42, creatinine 1.8, GFR is reduced to 27 which is chronic kidney disease stage 4. The patient's glucose is 272, calcium is 10.2, and her liver function tests are normal. Total protein is 6.1, albumin is 3.6. IMPRESSION: 1. NEAR SYNCOPE AND MUSCLE WEAKNESS. MOST LIKELY A COMBINATION OF ELECTROLYTE IMBALANCE AND HYPERGLYCEMIA. 2. CHEST PRESSURE AND EPIGASTRIC PRESSURE. 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 3. MODERATE TO SEVERE MITRAL REGURGITATION AT PRESENT. ON 07/2016 AN ECHOCARDIOGRAM SHOWED MODERATE MITRAL REGURGITATION. 4. HYPOXEMIA ? ETIOLOGY. 5. ACCELERATED HYPERTENSION. 6. PAST HISTORY OF SYMPTOMATIC BRADYCARDIA WITH COMPLETE ATRIOVENTRICULAR BLOCK STATUS POST DUAL CHAMBER PERMANENT PACEMAKER PLACEMENT. 7. HYPOMAGNESEMIA, CORRECTED. 8. HYPOKALEMIA, CORRECTED. 9. 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 10. 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 11. MOST LIKELY THE PATIENT HAS ESOPHAGEAL DYSMOTILITY AND DISORGANIZED PERISTALSIS CAUSING THE PATIENT'S SYMPTOMS. 12. HISTORY OF RENAL ARTERY STENOSIS STATUS POST LEFT RENAL ARTERY STENT. 13. HISTORY OF GOUT. 14. HISTORY OF MILD AORTIC STENOSIS. 15. HISTORY OF RIGHT BREAST CANCER, TREATED MEDICALLY. 16. ANXIETY. 17. DEPRESSION. RECOMMENDATIONS: Would recommend increasing this patient's Coreg to 25 mg p.o. q.12 hours, continue her ARB, continue aspirin. If this does not bring her blood pressure down then would add clonidine. Would recommend a chest x-ray, portable, in the a.m. TIME SPENT: Note 35 minutes spent on this patient with more than 50% of the time spent on direct patient care and also discussions with the attending physician on the case, and also reviewing the patient's medications and increasing the patient's medication dose. We will with you. DICTATING PHYSICIAN: KEN GIBSON M.D. [id number] PHY#: [id number] ID: [id number] JOB#: [id number] ACCT: [id number] cc: >
[2016-10-04] MEDS: HYDROCODONE/ACETAMINOPHEN 10-325 MG TABLET PO PRN (20:20)
[2016-10-04] MEDS ORDERED: CARVEDILOL 6.25 MG TABLET PO SCH (22:00)
[2016-10-04] MEDS: CARVEDILOL 12.5 MG TABLET PO SCH (22:35)
[2016-10-04] MEDS: ANASTROZOLE 1 MG TABLET PO SCH (22:36)
[2016-10-05] MEDS: INSULIN REG, HUMAN 100 UNIT/ML 3 ML VIAL (PYX) SUBCUT PRN ×4 (00:25→17:07)
[2016-10-05] MEDS: HYDROCODONE/ACETAMINOPHEN 10-325 MG TABLET PO PRN ×3 (02:39→17:37)
[2016-10-05 06:40] LABS: ABSOLUTE EOSINOPHILS # (AUTO) 0.2 10^3/uL (0.0-0.6); ABSOLUTE LYMPHOCYTES (AUTO) 0.7 10^3/uL (0.5-4.7); ABSOLUTE MONOCYTES (AUTO) 0.3 10^3/uL (0.1-1.4); BASOPHILS % (AUTO) 1.1 % (0-2); EOSINOPHILS % (AUTO) 4.2 % (0-6); HEMATOCRIT 30.9 % (36.0-47.0); HEMOGLOBIN 10.2 g/dL (12.0-15.5); HGB HCT DIFFERENCE -0.3; MEAN CORPUSCULAR HEMOGLOBIN 30.2 pg (27.0-33.4); MEAN CORPUSCULAR VOLUME 92 fl (80-97); MONOCYTES % (AUTO) 7.4 % (3-13); RED BLOOD COUNT 3.38 10^6/uL (3.72-5.28); RED CELL DISTRIBUTION WIDTH 16.4 % (11.5-14.0); SEGMENTED NEUTROPHILS % (AUTO) 71.3 % (42-78); WHITE BLOOD COUNT 4.2 10^3/uL (4.0-10.5)
[2016-10-05 06:52] LABS: ANION GAP 8 (5-19); BLOOD UREA NITROGEN 37 mg/dL (7-20); CALCIUM 10.6 mg/dL (8.4-10.2); CARBON DIOXIDE 30 mmol/L (22-30); CHLORIDE 100 mmol/L (98-107); CREATININE RESULT 1.55 mg/dL (0.52-1.25); GLUCOSE 169 mg/dL (75-110); POTASSIUM 4.4 mmol/L (3.6-5.0); SODIUM 137.6 mmol/L (137-145)
[2016-10-05] MEDS: SUCRALFATE 1 GM TABLET PO SCH ×4 (08:04→22:00)
[2016-10-05] MEDS: PAROXETINE HCL 20 MG TABLET PO SCH (08:04)
[2016-10-05] MEDS: HUM INSULIN NPH/REG INSULIN HM 100 UNIT/1 ML 3 ML SUBCUT SCH ×2 (08:06→17:08)
[2016-10-05] MEDS: ALLOPURINOL 100 MG TABLET PO SCH (09:58)
[2016-10-05] MEDS: ASPIRIN 81 MG TABLET, CHEWABLE PO SCH (09:58)
[2016-10-05] MEDS: FENOFIBRATE NANOCRYSTALLIZED 145 MG TABLET PO SCH (09:59)
[2016-10-05] MEDS: LOSARTAN POTASSIUM 50 MG TABLET PO SCH (09:59)
[2016-10-05] MEDS: MAGNESIUM OXIDE 400 MG TABLET PO SCH ×2 (10:00→17:07)
[2016-10-05] MEDS: ISOSORBIDE MONONITRATE 60 MG TAB.ER.24H PO SCH (10:00)
[2016-10-05] MEDS: CARVEDILOL 12.5 MG TABLET PO SCH ×2 (10:00→22:00)
[2016-10-05] MEDS: FLUTICASONE NASAL SPRAY 50 MCG/SPRY 120 SPRAY/16 GM NASL SCH ×2 (10:01→22:01)
[2016-10-05] MEDS: DOCUSATE SODIUM 100 MG CAPSULE PO SCH ×2 (10:01→17:06)
[2016-10-05] MEDS: FAMOTIDINE 20 MG TABLET PO SCH ×2 (10:01→22:00)
[2016-10-05] MEDS: AMLODIPINE BESYLATE 10 MG TABLET PO SCH (10:01)
[2016-10-05] MEDS ORDERED: TORSEMIDE 20 MG TABLET PO ONE (11:00)
[2016-10-05] MEDS ORDERED: ISOSORBIDE MONONITRATE 60 MG TAB.ER.24H PO ONE (11:13)
[2016-10-05] MEDS ORDERED: ISOSORBIDE MONONITRATE 30 MG TAB.ER.24H PO ONE (12:00)
[2016-10-05] MEDS ORDERED: FUROSEMIDE INJ/PF 40 MG/4 ML SDV IV ONE (12:00)
--- NOTE | 2016-10-05 14:48 | PDOC PROGRESS REPORT ---
Subjective Progress Note for:: 10/05/16 Subjective:: Patient seen on morning rounds she is resting in bed. She states she just got back from a chest x-ray is feeling short of breath. She states her chest feels tight like it does when she had some fluid in her lungs. She has not been receiving her Demadex for the last 2 days. Patient was transfused yesterday. She also underwent EGD because of dysphasia. She was found to have mild gastritis and no active bleeding. She denies any abdominal pain, nausea, vomiting or diarrhea. She denies any chest pain or palpitations. Her daughter is at bedside. Physical Exam Vital Signs: Temp Pulse Resp BP Pulse Ox 97.6 F 60 17 160/58 H 99 10/05/16 11:21 10/05/16 11:21 10/05/16 11:21 10/05/16 11:21 10/05/16 11:21 Intake & Output 10/04/16 10/05/16 10/06/16 06:59 06:59 06:59 Intake Total 305 1510 Balance 305 1510 Weight 98 kg 98 kg General appearance: PRESENT: no acute distress, obese, well-developed, well- nourished Head exam: PRESENT: atraumatic, normocephalic Eye exam: PRESENT: conjunctiva pink, EOMI, PERRLA. ABSENT: scleral icterus Ear exam: PRESENT: normal external ear exam Mouth exam: PRESENT: moist, tongue midline Neck exam: ABSENT: carotid bruit, JVD, lymphadenopathy, thyromegaly Respiratory exam: PRESENT: rales, symmetrical, unlabored - bilateral bases Cardiovascular exam: PRESENT: RRR. ABSENT: diastolic murmur, rubs, systolic murmur Pulses: PRESENT: normal dorsalis pedis pul Vascular exam: PRESENT: normal capillary refill GI/Abdominal exam: PRESENT: normal bowel sounds, soft. ABSENT: distended, guarding, mass, organolmegaly, rebound, tenderness Rectal exam: PRESENT: deferred Extremities exam: PRESENT: full ROM. ABSENT: calf tenderness, clubbing, pedal edema Musculoskeletal exam: PRESENT: ambulatory Neurological exam: PRESENT: alert, awake, oriented to person, oriented to place , oriented to time, oriented to situation, CN II-XII grossly intact. ABSENT: motor sensory deficit Psychiatric exam: PRESENT: appropriate affect, normal mood. ABSENT: homicidal ideation, suicidal ideation Skin exam: PRESENT: dry, intact, warm. ABSENT: cyanosis, rash Results Laboratory Results: 10/05/16 05:41 10/05/16 05:41 10/04/16 10/05/16 10/05/16 09:32 05:41 05:41 WBC 4.2 RBC 3.38 L Hgb 10.2 L Hct 30.9 L MCV 92 MCH 30.2 MCHC 33.0 RDW 16.4 H Plt Count 160 Seg Neutrophils % 71.3 Lymphocytes % 16.0 Monocytes % 7.4 Eosinophils % 4.2 Basophils % 1.1 Absolute Neutrophils 3.0 Absolute Lymphocytes 0.7 Absolute Monocytes 0.3 Absolute Eosinophils 0.2 Absolute Basophils 0.0 Retic Count (auto) 2.39 Absolute Retic 0.081 Sodium 137.6 Potassium 4.4 Chloride 100 Carbon Dioxide 30 Anion Gap 8 BUN 37 H Creatinine 1.55 H Est GFR ( Amer) 39 L Est GFR (Non-Af Amer) 32 L Glucose 169 H Calcium 10.6 H Iron 87.3 TIBC 305 % Saturation 29 Ferritin 518.00 H Vitamin B12 347.0 Folate 12.50 Blood Type O NEGATIVE Antibody Screen POSITIVE 09/29/16 16:32 Blood Blood Culture - Final NO GROWTH IN 5 DAYS 09/29/16 15:41 Blood Blood Culture - Final NO GROWTH IN 5 DAYS Impressions: Upper GI and Small Bowel X-Ray 10/03/16 00:00 IMPRESSION: Disorganized esophageal contractions with few tertiary contractions. No stricture or esophageal obstruction. No hiatal hernia. No gastroesophageal reflux today. Limited view of the stomach and proximal small bowel is unremarkable. Chest X-Ray 10/05/16 06:00 IMPRESSION: Trace bilateral pleural effusions, mild interstitial edema. This pattern is new compared to chest films 09/29/2016 Assessment & Plan - Diagnosis (1) SOB (shortness of breath) Is this a current diagnosis for this admission?: YesPlan: Patient is complaining of shortness of breath this morning at rest. Her chest xray shows mild venous congestion. Will diurese today and follow symptoms. (2) Coronary artery disease Qualifiers: Coronary Disease-Associated Artery/Lesion type: [place] artery [place] vs. transplanted heart: [place] heart Associated angina: without angina Qualified Code(s): I25.10 - Atherosclerotic heart disease of [place] coronary artery without angina pectoris Is this a current diagnosis for this admission?: YesPlan: Continue current medication. Cardiology is following (3) Anemia of chronic disease Is this a current diagnosis for this admission?: Yes (4) COPD (chronic obstructive pulmonary disease) Qualifiers: Emphysema type: unspecified Is this a current diagnosis for this admission?: YesPlan: Continue current medications (5) Diabetes mellitus type I Qualifiers: Diabetes mellitus complication status: with unspecified complications Qualified Code(s): E10.8 - Type 1 diabetes mellitus with unspecified complications Is this a current diagnosis for this admission?: YesPlan: Continue current medications and sliding scale. Chemstrips show better control (6) Chronic kidney disease, stage IV (severe) Is this a current diagnosis for this admission?: YesPlan: Avoid nephrotoxic medications and doses. Currently stable (7) Hypertension Qualifiers: Hypertension type: essential hypertension Qualified Code(s): I10 - Essential (primary) hypertension Is this a current diagnosis for this admission?: YesPlan: Continue current medications and doses (8) Anemia in chronic kidney disease Is this a current diagnosis for this admission?: YesPlan: Transfused yesterday and underwent EGD which showed mild gastritis, Continue to follow - Time Time Spent with patient: 25-34 minutes Critical Time spent with patient: 15-24 minutes Medications reviewed and adjusted accordingly: Yes
[2016-10-05] MEDS: ANASTROZOLE 1 MG TABLET PO SCH (22:00)
[2016-10-06] MEDS: HYDROCODONE/ACETAMINOPHEN 10-325 MG TABLET PO PRN (00:32)
--- NOTE | 2016-10-06 00:53 | PROGRESS NOTE E ---
Progress Note NAME: JACINTA LUNSFORD : 1935 AGE: 81Y DATE: 10/05/2016 ROOM: 407 SUBJECTIVE: The patient continues to complain of shortness of breath and epigastric and chest pressure. She does have some orthopnea but no PND. There is no leg edema. There is no chest pain or discomfort consistent with angina. There is no arrhythmia seen on the monitor. OBJECTIVE: APPEARANCE: On examination, the patient is mildly to moderately obese. MENTAL STATUS: She appears to be depressed and anxious. VITAL SIGNS: On examination, she is afebrile with a temperature of 97.6 degrees Fahrenheit. Pulse is 60 beats per minute, blood pressure 160/58. Respirations are 70/min. O2 sats are 99% on 1.5 liters nasal cannula. HEAD: Atraumatic, normocephalic. EYES: Pupils are equal, round, regular, reactive to light and accommodation. There is mild conjunctival pallor present. There is no icterus. Extraocular movements normal. ENT: Negative. NECK: Supple. There is no JVD. There are bilateral carotid bruits present. Carotids are equal. There is no lymphadenopathy. There is no goiter. Trachea is central. LUNGS: Clear to auscultation and percussion. CARDIOVASCULAR: S1 and S2 are heard; there is no S3 gallop; there is no S4 gallop. There is a murmur of mild aortic stenosis present with preserved A2. There is also a murmur of mitral regurgitation present. There is no rub. ABDOMEN: Soft, nontender. There is no hepatosplenomegaly. Bowel sounds are well heard. EXTREMITIES: Femorals are diminished. There are no femoral bruits. Leg pulses are diminished. There is no pedal edema. There is no DVT or cellulitis. There is no cyanosis or clubbing. There is no calf tenderness. CENTRAL NERVOUS SYSTEM: The patient is conscious, awake, alert, oriented x3, with no focal deficit. PSYCHIATRIC: At present the patient appears to be slightly depressed, mood is anxious, but is not agitated. LABORATORY DATA: The patient's intake/output count is not accurate. The patient's sodium is 137.6, potassium is 4.4, chloride is 100, CO2 is 30. The patient's BUN is 37, creatinine is 1.55, GFR has come up to 32 from 27 and now is stage III chronic kidney disease. The patient's glucose is 169. The patient's iron is 87.3, a TIBC is 305, her percentage saturation is 29, her ferritin is elevated at 518. Her liver function tests are normal. The patient's white count is 4200; her hemoglobin has come up to 10.2 from 8.5; the patient did receive 2 units of packed RBCs; the patient's hematocrit is 30.9; the patient's platelets are 160,000. IMAGING DATA: The patient's chest x-ray shows trace bilateral pleural effusions with trace pleural *------*. Mild pulmonary vascular prominence consistent with mild CHF. There is no dense lower consolidation worrisome for pneumonia. There are no other abnormalities seen. ASSESSMENT: 1. Mild congestive heart failure. Note: This may be related to patient's renal function and also secondary to patient's uncontrolled hypertension. The patient was given an extra dose of isosorbide mononitrate 30 mg, and also the patient was given 40 mg of IV push Lasix. 2. Near syncope, muscle weakness, most likely a combination of electrolyte imbalance and hypoglycemia. 3. Chest pressure and epigastric pressure, most likely related to esophageal dysmotility and disorganized esophageal peristalsis. 4. Moderate to severe mitral regurgitation. On 08/12, echocardiogram showed moderate mitral regurgitation. 5. Hypoxemia, question of etiology. Most likely secondary to congestive heart failure is secondary to renal failure with volume overload, and also mitral regurgitation, and also occasional chronic diastolic heart failure. 6. Accelerated hypertension. Blood pressure is still not well controlled. 7. Past history of symptomatic bradycardia with complete atrioventricular block, status post dual-chamber permanent pacemaker placement. The pacemaker is working well. 8. Hypomagnesemia and hypokalemia, both corrected. 9. Diabetes mellitus type 2, insulin requiring, with chronic kidney complication which is stage IV. 10. Past history of cerebrovascular accident with no recurrence, and also, the patient fully recovered from that cerebrovascular accident. 11. Most likely has esophageal dysmotility and disorganized peristalsis causing patient's symptoms. 12. History of renal artery stenosis, status post left renal artery stent. 13. History of gout. 14. History of mild aortic stenosis. 15. History of right breast cancer, treated medically. 16. Anxiety. 17. Depression. PLAN: Note that the patient's Coreg has also been increased to 25 mg p.o. q. 12 hours. Continue ARB and continue aspirin. As mentioned earlier, the patient was given an extra dose of 30 mg of isosorbide mononitrate, and the isosorbide mononitrate was increased to 90 mg p.o. daily. Also, the patient was given Lasix 40 mg. We will continue the patient on Lasix 40 mg IV daily. Note, if clonidine is added, this may add to the patient's depression. Hence, we will stop the patient's amlodipine and *------* patient Procardia XL 60 mg p.o. q. 12 hours. Note, 35 minutes were spent on this patient, including review of the medications, adjustment of the medications, and also, more than 50% of the time was spent on direct patient care and also discussions with the other caregiving providers. This patient's medical decision making is a little more than moderate complexity. Will follow with you. DICTATING PHYSICIAN: KEN GIBSON M.D. [id number] ARMANDO#: [id number] ID: [id number] JOB#: [id number] ACCT: [id number] cc: >
[2016-10-06 07:20] LABS: ANION GAP 9 (5-19); BLOOD UREA NITROGEN 40 mg/dL (7-20); CALCIUM 10.8 mg/dL (8.4-10.2); CARBON DIOXIDE 30 mmol/L (22-30); CHLORIDE 99 mmol/L (98-107); CREATININE RESULT 1.45 mg/dL (0.52-1.25); GLUCOSE 161 mg/dL (75-110); POTASSIUM 4.1 mmol/L (3.6-5.0); SODIUM 138.3 mmol/L (137-145)
[2016-10-06] MEDS: PAROXETINE HCL 20 MG TABLET PO SCH (08:02)
[2016-10-06] MEDS: SUCRALFATE 1 GM TABLET PO SCH ×4 (08:02→21:35)
[2016-10-06] MEDS: INSULIN REG, HUMAN 100 UNIT/ML 3 ML VIAL (PYX) SUBCUT PRN ×2 (08:02→12:36)
[2016-10-06] MEDS ORDERED: ISOSORBIDE MONONITRATE 60 MG TAB.ER.24H PO SCH (10:00)
--- NOTE | 2016-10-06 10:23 | PDOC PROGRESS REPORT ---
Subjective Progress Note for:: 10/06/16 Subjective:: Patient seen on morning rounds she is resting in bed. She states she did urinate alot yesterday after Dr Toledo gave her a shot of Lasix. She states she is still dyspneic on exertion. She thinks it may be the Coreg causing her shortness of breath. She also underwent EGD because of dysphasia. She was found to have mild gastritis and no active bleeding. She denies any abdominal pain, nausea, vomiting or diarrhea. She denies any chest pain or palpitations. She verbalizes no other complaints. Physical Exam Vital Signs: Temp Pulse Resp BP Pulse Ox 97.8 F 59 L 22 H 155/57 H 97 10/06/16 07:50 10/06/16 07:50 10/06/16 07:50 10/06/16 07:50 10/06/16 03:51 Intake & Output 10/05/16 10/06/16 10/07/16 06:59 06:59 06:59 Intake Total 1510 880 Balance 1510 880 Weight 98 kg 99 kg General appearance: PRESENT: no acute distress, well-developed, well-nourished Head exam: PRESENT: atraumatic, normocephalic Eye exam: PRESENT: conjunctiva pink, EOMI, PERRLA. ABSENT: scleral icterus Neck exam: ABSENT: carotid bruit, JVD, lymphadenopathy, thyromegaly Respiratory exam: PRESENT: clear to auscultation dion. ABSENT: rales, rhonchi, wheezes Cardiovascular exam: PRESENT: RRR. ABSENT: diastolic murmur, rubs, systolic murmur Pulses: PRESENT: normal dorsalis pedis pul Vascular exam: PRESENT: normal capillary refill GI/Abdominal exam: PRESENT: normal bowel sounds, soft. ABSENT: distended, guarding, mass, organolmegaly, rebound, tenderness Rectal exam: PRESENT: deferred Extremities exam: PRESENT: full ROM. ABSENT: calf tenderness, clubbing, pedal edema Neurological exam: PRESENT: alert, awake, oriented to person, oriented to place , oriented to time, oriented to situation, CN II-XII grossly intact. ABSENT: motor sensory deficit Psychiatric exam: PRESENT: appropriate affect, normal mood. ABSENT: homicidal ideation, suicidal ideation Skin exam: PRESENT: dry, intact, warm. ABSENT: cyanosis, rash Results Laboratory Results: 10/05/16 05:41 10/06/16 05:35 10/06/16 05:35 Sodium 138.3 Potassium 4.1 Chloride 99 Carbon Dioxide 30 Anion Gap 9 BUN 40 H Creatinine 1.45 H Est GFR ( Amer) 42 L Est GFR (Non-Af Amer) 35 L Glucose 161 H Calcium 10.8 H Impressions: Upper GI and Small Bowel X-Ray 10/03/16 00:00 IMPRESSION: Disorganized esophageal contractions with few tertiary contractions. No stricture or esophageal obstruction. No hiatal hernia. No gastroesophageal reflux today. Limited view of the stomach and proximal small bowel is unremarkable. Chest X-Ray 10/05/16 06:00 IMPRESSION: Trace bilateral pleural effusions, mild interstitial edema. This pattern is new compared to chest films 09/29/2016 Assessment & Plan - Diagnosis (1) SOB (shortness of breath) Is this a current diagnosis for this admission?: YesPlan: Patient is complaining of shortness of breath this morning at rest. Her chest xray shows mild venous congestion. Will diurese today and follow symptoms. (2) Coronary artery disease Qualifiers: Coronary Disease-Associated Artery/Lesion type: [place] artery [place] vs. transplanted heart: [place] heart Associated angina: without angina Qualified Code(s): I25.10 - Atherosclerotic heart disease of [place] coronary artery without angina pectoris Is this a current diagnosis for this admission?: YesPlan: Continue current medication. Cardiology is following (3) Anemia of chronic disease Is this a current diagnosis for this admission?: YesPlan: Stable at the present time. Required transfusion (4) COPD (chronic obstructive pulmonary disease) Qualifiers: Emphysema type: unspecified Is this a current diagnosis for this admission?: YesPlan: Continue current medications (5) Diabetes mellitus type I Qualifiers: Diabetes mellitus complication status: with unspecified complications Qualified Code(s): E10.8 - Type 1 diabetes mellitus with unspecified complications Is this a current diagnosis for this admission?: YesPlan: Continue current medications and sliding scale. Chemstrips show better control (6) Chronic kidney disease, stage IV (severe) Is this a current diagnosis for this admission?: YesPlan: Avoid nephrotoxic medications and doses. Currently stable (7) Hypertension Qualifiers: Hypertension type: essential hypertension Qualified Code(s): I10 - Essential (primary) hypertension Is this a current diagnosis for this admission?: YesPlan: Continue current medications and doses (8) Anemia in chronic kidney disease Is this a current diagnosis for this admission?: YesPlan: Transfused yesterday and underwent EGD which showed mild gastritis, Continue to follow - Time Time Spent with patient: 15-24 minutes
[2016-10-06] MEDS: LOSARTAN POTASSIUM 50 MG TABLET PO SCH (12:27)
[2016-10-06] MEDS ORDERED: FUROSEMIDE INJ/PF 40 MG/4 ML SDV IV ONE (12:30)
[2016-10-06] MEDS: MAGNESIUM OXIDE 400 MG TABLET PO SCH ×2 (12:30→17:00)
[2016-10-06] MEDS: ASPIRIN 81 MG TABLET, CHEWABLE PO SCH (12:30)
[2016-10-06] MEDS: FENOFIBRATE NANOCRYSTALLIZED 145 MG TABLET PO SCH (12:31)
[2016-10-06] MEDS: ALLOPURINOL 100 MG TABLET PO SCH (12:31)
[2016-10-06] MEDS: FAMOTIDINE 20 MG TABLET PO SCH ×2 (12:32→21:35)
[2016-10-06] MEDS: DOCUSATE SODIUM 100 MG CAPSULE PO SCH ×2 (12:42→17:00)
[2016-10-06] MEDS: HUM INSULIN NPH/REG INSULIN HM 100 UNIT/1 ML 3 ML SUBCUT SCH ×2 (12:42→16:56)
[2016-10-06] MEDS: FLUTICASONE NASAL SPRAY 50 MCG/SPRY 120 SPRAY/16 GM NASL SCH ×2 (12:42→21:36)
[2016-10-06] MEDS: ISOSORBIDE MONONITRATE 30 MG TAB.ER.24H PO SCH (12:42)
[2016-10-06] MEDS ORDERED: DILTIAZEM HCL 120 MG CAP.SR.24H PO ONE (13:00)
[2016-10-06] MEDS: ANASTROZOLE 1 MG TABLET PO SCH (21:34)
[2016-10-06] MEDS ORDERED: DILTIAZEM HCL 120 MG CAP.SR.24H PO SCH (22:00)
--- NOTE | 2016-10-06 22:23 | PROGRESS NOTE E ---
Progress Note NAME: JACINTA LUNSFORD : 1935 AGE: 81Y DATE: 10/06/2016 ROOM: 407 SUBJECTIVE: The patient continues to complain of shortness of breath with minimal exertion. She denies any chest pressure or discomfort, and there is no appearance of discomfort but the appetite is decreased. She appears to be very much depressed. There is no arrhythmia seen on the monitor. The patient has orthopnea but no PND. She has no leg edema. Note that the patient states that the last 2 days she has been having mild wheezing, but the daughter says she did not hear wheezing, but the patient is very positive that she had wheezing and she thinks it is the Coreg. OBJECTIVE: GENERAL: On examination, the patient is mild to moderately obese, appears to be very much depressed. VITAL SIGNS: She is afebrile with a temperature of 98.1 degrees Fahrenheit. Pulse is 65 beats per minute. Blood pressure 181/57. Respirations 17 per minute. O2 saturation is 99% on 2 liters nasal cannula. HEAD: Atraumatic/normocephalic. EYES: Pupils are equal, round, regular, reactive to light and accommodation. There is mild conjunctival pallor present. There is no icterus. Extraocular movements are normal. EARS, NOSE, AND THROAT: Negative. NECK: Supple. There is no JVD. There are bilateral carotid bruits present. Carotids are equal. There is no lymphadenopathy. There is no goiter. Trachea is central. LUNGS: Clear to auscultation/percussion. HEART: S1, S2 is heard. There is no S3 gallop. There is no S4 gallop. There is murmur of mild aortic stenosis present with preserved A2. There is also murmur of mitral regurgitation present. There is no rub. ABDOMEN: Soft, nontender. There is no hepatosplenomegaly. Bowel sounds are well heard. EXTREMITIES: Femorals are diminished. There is no femoral bruit. Leg pulses are diminished. There is no pedal edema. There is no DVT or cellulitis. There is no cyanosis or clubbing. There is no calf tenderness. NEUROLOGIC: The patient is conscious, awake, alert, oriented x3 with no focal deficit. PSYCHIATRIC: The patient appears to be very much depressed and also slightly anxious but is not agitated. DIAGNOSTIC DATA: The patient's sodium is 138.8, potassium 4.1, chloride 99, CO2 is 30, the patient's BUN is 40, creatinine is 1.45, GFR is reduced at 35 mL which is CKD stage 3, her glucose is 161, her calcium is 10.8. IMPRESSION: 1. DYSPNEA ON EXERTION. THE PATIENT IS CONVINCED THAT SHE HAS WHEEZING, AND THIS IS SECONDARY TO COREG. HENCE, WILL DISCONTINUE THE PATIENT'S COREG AND AMLODIPINE AND START THE PATIENT ON CARDIZEM CD 120 MG P.O. Q.12 H. THIS MAY ALSO HELP THE DISORGANIZED PERISTALSIS AND TERTIARY MOVEMENTS. 2. CONGESTIVE HEART FAILURE, AT PRESENT SEEMS TO BE COMPENSATED. 3. NEAR SYNCOPE, MUSCLE WEAKNESS, MOST LIKELY A COMBINATION OF ELECTROLYTE IMBALANCE AND HYPOGLYCEMIA. 4. CHEST PRESSURE AND EPIGASTRIC PRESSURE, AT PRESENT RESOLVED. 5. MODERATE TO SEVERE MITRAL REGURGITATION ON 08/12/2016 THAT SHOWED MODERATE MITRAL REGURGITATION. 6. HYPOXEMIA, QUESTION ETIOLOGY, MOST LIKELY SECONDARY TO CONGESTIVE HEART FAILURE AND SECONDARY TO RENAL FAILURE WITH VOLUME OVERLOAD AND ALSO MITRAL REGURGITATION AND ALSO CHRONIC DIASTOLIC HEART FAILURE. 7. ACCELERATED HYPERTENSION. BLOOD PRESSURE IS STILL NOT WELL CONTROLLED. 8. PAST HISTORY OF SYMPTOMATIC BRADYCARDIA WITH COMPLETE AV BLOCK, STATUS POST DUEL-CHAMBER PERMANENT PACEMAKER PLACEMENT. 9. HYPOMAGNESEMIA/HYPOKALEMIA, BOTH CORRECTED. 10. DIABETES MELLITUS TYPE 2, INSULIN REQUIRING WITH CHRONIC KIDNEY DISEASE. 11. CHRONIC KIDNEY DISEASE, STAGE 4. 12. 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 13. MOST LIKELY PATIENT HAS *------* DYSMOTILITY AND DISORGANIZED PERISTALSIS CAUSING THE PATIENT'S SYMPTOMS. CARDIZEM CD MIGHT HELP ALONG WITH NITRATES. 14. HISTORY OF RENAL ARTERY STENOSIS, STATUS POST LEFT RENAL ARTERY TENDERNESS. 15. HISTORY OF GOUT. 16. HISTORY OF MILD AORTIC STENOSIS. 17. MODERATE MITRAL REGURGITATION. 18. HISTORY OF RIGHT BREAST CANCER, TREATED MEDICALLY. 19. ANXIETY. 20. DEPRESSION. RECOMMENDATIONS: Will stop the patient's amlodipine and start the patient on Cardizem CD 120 mg p.o. q.12 h. and increase as tolerated. Continue losartan. The patient needs to see an outpatient psychiatrist since some of the symptoms are related to her severe depression. Will follow with you. Discussed with patient and patient's daughter. Also will put the patient on Lasix since Lasix has improved her GFR. Note 35 minutes were spent with the patient with more than 50% spent on direct patient care, also medications reviewed and adjusted. Will follow with you. DICTATING PHYSICIAN: KEN GIBSON M.D. [id number] PHY#: [id number] ID: [id number] JOB#: [id number] ACCT: [id number] cc:KEN GIBSON M.D. >
[2016-10-07] MEDS: SUCRALFATE 1 GM TABLET PO SCH ×4 (08:06→22:10)
[2016-10-07] MEDS: PAROXETINE HCL 20 MG TABLET PO SCH (08:06)
[2016-10-07] MEDS: HUM INSULIN NPH/REG INSULIN HM 100 UNIT/1 ML 3 ML SUBCUT SCH ×2 (08:07→16:15)
--- NOTE | 2016-10-07 08:10 | PDOC PROGRESS REPORT ---
Subjective Progress Note for:: 10/07/16 Subjective:: The patient is still complaining of not feeling well. She does not have any specific complaints. She states that she is doing better with oxygen. Advised patient that we will check her oxygen saturation and see if she qualifies for home oxygen. Discussed the option of discharge home versus correction rehabilitation. The patient opted to go home. Discussed with the patient and the daughter about the change in medications. Physical Exam Vital Signs: Temp Pulse Resp BP Pulse Ox 98.6 F 55 L 20 157/54 H 97 10/07/16 04:00 10/07/16 04:00 10/07/16 04:00 10/07/16 04:00 10/07/16 04:00 Intake & Output 10/06/16 10/07/16 10/08/16 06:59 06:59 06:59 Intake Total 880 1193 Output Total 200 Balance 880 993 Weight 99 kg 95 kg General appearance: PRESENT: no acute distress Head exam: PRESENT: atraumatic Eye exam: PRESENT: conjunctiva pink Neck exam: ABSENT: carotid bruit Respiratory exam: PRESENT: chest wall tenderness Cardiovascular exam: PRESENT: +S1, +S2 Pulses: PRESENT: +1 pedal pulses bilateral Vascular exam: PRESENT: normal capillary refill GI/Abdominal exam: PRESENT: normal bowel sounds, soft Extremities exam: PRESENT: full ROM Musculoskeletal exam: PRESENT: ambulatory Neurological exam: PRESENT: alert Psychiatric exam: PRESENT: anxious Results Laboratory Results: 10/05/16 05:41 10/06/16 05:35 10/05/16 05:41 Transferrin 241 Impressions: Upper GI and Small Bowel X-Ray 10/03/16 00:00 IMPRESSION: Disorganized esophageal contractions with few tertiary contractions. No stricture or esophageal obstruction. No hiatal hernia. No gastroesophageal reflux today. Limited view of the stomach and proximal small bowel is unremarkable. Chest X-Ray 10/05/16 06:00 IMPRESSION: Trace bilateral pleural effusions, mild interstitial edema. This pattern is new compared to chest films 09/29/2016 Assessment & Plan - Diagnosis (1) Diabetes mellitus type 2 Is this a current diagnosis for this admission?: YesPlan: Stable (2) Hypoglycemia Is this a current diagnosis for this admission?: YesPlan: Resolved (3) Chronic kidney disease, stage IV (severe) Is this a current diagnosis for this admission?: YesPlan: Stable we will continue with diuretics (4) Coronary artery disease Qualifiers: Coronary Disease-Associated Artery/Lesion type: [place] artery [place] vs. transplanted heart: [place] heart Associated angina: without angina Qualified Code(s): I25.10 - Atherosclerotic heart disease of [place] coronary artery without angina pectoris Is this a current diagnosis for this admission?: YesPlan: Stable. Cardiology has readjusted the medications (5) Hypokalemia Is this a current diagnosis for this admission?: Yes (6) Hypomagnesemia Is this a current diagnosis for this admission?: Yes (7) GERD (gastroesophageal reflux disease) Qualifiers: Esophagitis presence: without esophagitis Qualified Code(s): K21.9 - Gastro-esophageal reflux disease without esophagitis Is this a current diagnosis for this admission?: YesPlan: Stable after the EGD (8) Anemia of chronic disease Is this a current diagnosis for this admission?: Yes
[2016-10-07] MEDS ORDERED: DILTIAZEM HCL 120 MG CAP.SR.24H PO SCH (10:00)
[2016-10-07] MEDS: FUROSEMIDE 40 MG TABLET PO SCH (10:44)
[2016-10-07] MEDS: LOSARTAN POTASSIUM 50 MG TABLET PO SCH (10:44)
[2016-10-07] MEDS: ISOSORBIDE MONONITRATE 30 MG TAB.ER.24H PO SCH (10:45)
[2016-10-07] MEDS: ALLOPURINOL 100 MG TABLET PO SCH (10:45)
[2016-10-07] MEDS: ASPIRIN 81 MG TABLET, CHEWABLE PO SCH (10:45)
[2016-10-07] MEDS: FAMOTIDINE 20 MG TABLET PO SCH ×2 (10:46→22:09)
[2016-10-07] MEDS: DOCUSATE SODIUM 100 MG CAPSULE PO SCH ×2 (10:46→17:19)
[2016-10-07] MEDS: FENOFIBRATE NANOCRYSTALLIZED 145 MG TABLET PO SCH (10:46)
[2016-10-07] MEDS: MAGNESIUM OXIDE 400 MG TABLET PO SCH ×2 (10:47→17:18)
[2016-10-07] MEDS: FLUTICASONE NASAL SPRAY 50 MCG/SPRY 120 SPRAY/16 GM NASL SCH ×2 (10:48→22:11)
[2016-10-07] MEDS ORDERED: LISINOPRIL 10 MG TABLET PO ONE (12:00)
--- NOTE | 2016-10-07 12:58 | PDOC PROGRESS REPORT ---
Subjective Progress Note for:: 10/07/16 Subjective:: Patient is seen in follow-up. She had an upper endoscopy done late last week. Minimal sedation was used. She was complaining more shortness of breath and chest discomfort. She remains in the hospital over the weekend. I'm still awaiting biopsies. She is able to tolerate a diet. Management of her blood pressure shortness of breath is currently the issue. She's currently had a chest x-ray which is in progress. She denies any nausea vomiting. She denies any fevers or chills. Physical Exam Vital Signs: Temp Pulse Resp BP Pulse Ox 97.3 F 52 L 20 202/54 H 90 L 10/07/16 08:00 10/07/16 08:00 10/07/16 08:00 10/07/16 08:00 10/07/16 08:00 Intake & Output 10/06/16 10/07/16 10/08/16 06:59 06:59 06:59 Intake Total 880 1193 Output Total 200 Balance 880 993 Weight 99 kg 95 kg General appearance: PRESENT: mild distress, well-developed, well-nourished Head exam: PRESENT: atraumatic, normocephalic Eye exam: PRESENT: EOMI, PERRLA. ABSENT: nystagmus, periorbital swelling, scleral icterus Mouth exam: PRESENT: moist Throat exam: ABSENT: tonsillar exudate, tonsillogmegaly Neck exam: ABSENT: meningismus, tenderness, thyromegaly Respiratory exam: PRESENT: symmetrical. ABSENT: chest wall tenderness, wheezes Cardiovascular exam: PRESENT: RRR, +S1, +S2 GI/Abdominal exam: PRESENT: normal bowel sounds. ABSENT: Crenshaw's sign, rebound , rigid, tenderness Extremities exam: ABSENT: joint swelling Neurological exam: PRESENT: oriented to time, oriented to situation, reflexes normal, CN II-XII grossly intact Psychiatric exam: PRESENT: appropriate affect Skin exam: PRESENT: normal color. ABSENT: mottled, pallor, petechiae, urticaria , vesicles Results Laboratory Results: 10/05/16 05:41 10/06/16 05:35 10/05/16 05:41 Transferrin 241 Impressions: Upper GI and Small Bowel X-Ray 10/03/16 00:00 IMPRESSION: Disorganized esophageal contractions with few tertiary contractions. No stricture or esophageal obstruction. No hiatal hernia. No gastroesophageal reflux today. Limited view of the stomach and proximal small bowel is unremarkable. Assessment & Plan - Diagnosis (1) Anemia of chronic disease Is this a current diagnosis for this admission?: YesPlan: H&H is stable. No significant bleeding. Likely multifactorial. (2) Atypical chest pain Plan: EGD relatively negative for ulcers. We will await biopsies to see if she needs to be treated for Helicobacter pylori. (3) Hypomagnesemia Is this a current diagnosis for this admission?: YesPlan: Avoid PPI for now due to hypomagnesemia. H2 renee should be sufficient. - Time Time Spent with patient: 15-24 minutes
[2016-10-07] MEDS: DILTIAZEM HCL 180 MG CAPSULE.CR PO SCH ×2 (13:15→22:10)
[2016-10-07] MEDS: ONDANSETRON HCL INJ/PF 4 MG/2 ML SDV IV PRN (18:05)
[2016-10-07] MEDS ORDERED: LISINOPRIL 10 MG TABLET PO SCH (22:00)
[2016-10-07] MEDS: ANASTROZOLE 1 MG TABLET PO SCH (22:10)
[2016-10-07 22:25] LABS: ALANINE AMINOTRANSFERASE 24 U/L (9-52); ALBUMIN 3.7 g/dL (3.5-5.0); ALKALINE PHOSPHATASE 78 U/L (38-126); ANION GAP 8 (5-19); ASPARTATE AMINO TRANSFERASE 20 U/L (14-36); BILIRUBIN,TOTAL 0.8 mg/dL (0.2-1.3); BLOOD UREA NITROGEN 40 mg/dL (7-20); CALCIUM 10.8 mg/dL (8.4-10.2); CARBON DIOXIDE 34 mmol/L (22-30); CHLORIDE 96 mmol/L (98-107); CREATININE RESULT 1.43 mg/dL (0.52-1.25); GLUCOSE 143 mg/dL (75-110); POTASSIUM 4.4 mmol/L (3.6-5.0); SODIUM 137.9 mmol/L (137-145); TOTAL PROTEIN 6.3 g/dL (6.3-8.2)
--- NOTE | 2016-10-07 22:33 | PROGRESS NOTE E ---
Progress Note NAME: JACINTA LUNSFORD : 1935 AGE: 81Y DATE: 10/07/2016 ROOM: 407 SUBJECTIVE: The patient continues to complain of shortness of breath with minimal exertion. She denies any chest pain, pressure, or discomfort and there is no epigastric pain. The patient's gastric biopsy came back as a negative gastritis with no evidence of malignancy, dysplasia, or metaplasia. The patient's blood pressure is still very high. She is able to tolerate a diet. She has no leg edema. There is no PND or orthopnea. There are no arrhythmias. There is no further wheezing. OBJECTIVE: GENERAL: On examination the patient is mild to moderately obese, appears to be very much depressed. VITAL SIGNS: She is afebrile with a temperature 97.4 degrees Fahrenheit. Pulse is 59 beats per minute. Blood pressure is 195/55. The manual blood pressure is 175/54. Respirations 20 per minute. O2 saturations are 93% on room air. HEAD: Atraumatic/normocephalic. EYES: Pupils are equal, round, regular, reactive to light and accommodation. There is mild conjunctival pallor present. There is no icterus. External ocular movements are normal. EARS, NOSE, AND THROAT: Negative. NECK: Supple. There is no JVD. There are bilateral carotid bruits present. Carotids are equal. There is no lymphadenopathy. There is no goiter. Trachea is central. LUNGS: Show a few bibasilar rales of CHF which is very minimal. There is no rhonchi or wheezing. HEART: S1, S2 is heard. There is no S3 gallop. There is no S4 gallop. There is murmur of mild aortic stenosis present and with preserved A2, and there is also murmur of mild mitral regurgitation present. There is no rub. ABDOMEN: Soft, nontender. There is no hepatosplenomegaly. Bowel sounds are well heard. EXTREMITIES: Femorals are diminished. There is no femoral bruit. Leg pulses are diminished. There is no cyanosis or clubbing. There is no pedal edema. There is no cellulitis. CENTRAL NERVOUS SYSTEM: The patient is conscious, awake, alert, oriented x3 without any focal deficit. PSYCHIATRIC: The patient appears to be very much depressed. Her affect is flat. FLUID BALANCE: The patient's 24-hour intake has been 1193 mL, output is 200 mL. I am not sure if this is accurate. DIAGNOSTIC DATA: The patient's chest x-ray shows mild CHF. The patient's blood sugar is 230 and 233. IMPRESSION: 1. DYSPNEA ON EXERTION, MOST LIKELY RELATED TO RENAL FAILURE AND TO HYPERTENSION AND POSSIBLY DUE TO DIASTOLIC DYSFUNCTION. 2. CONGESTIVE HEART FAILURE, AT PRESENT SEEMS TO BE MILDLY DECOMPENSATED. 3. NEAR SYNCOPE AND MUSCLE WEAKNESS SECONDARY TO ELECTROLYTE IMBALANCE WHICH HAS BEEN CORRECTED. 4. CHEST PRESSURE AND EPIGASTRIC PRESSURE, RESOLVED. 5. MODERATE MITRAL REGURGITATION BY ECHOCARDIOGRAM OF AUGUST 12, 2016. 6. HYPOXEMIA, QUESTIONABLE ETIOLOGY, MOST LIKELY SECONDARY TO CONGESTIVE HEART FAILURE AND UNCONTROLLED BLOOD PRESSURE AND RENAL FAILURE. 7. ACCELERATED HYPERTENSION. 8. PAST HISTORY OF SYMPTOMATIC BRADYCARDIA WITH COMPLETE AV BLOCK STATUS POST DUAL-CHAMBER PERMANENT PACEMAKER PLACEMENT. 9. HYPOMAGNESEMIA/HYPOKALEMIA, BOTH CORRECTED, WILL RECHECK LABS IN THE A.M. 10. DIABETES MELLITUS TYPE 2, INSULIN REQUIRING WITH CHRONIC KIDNEY DISEASE. 11. AT PRESENT CHRONIC KIDNEY DISEASE STAGE 3. 12. PAST HISTORY OF CEREBROVASCULAR ACCIDENT FROM WHICH THE PATIENT IS FULLY RECOVERED. 13. THE PATIENT HAS ESOPHAGEAL DYSMOTILITY AND DISORGANIZED PERISTALSIS CAUSING THE PATIENT'S EPIGASTRIC AND LOWER CHEST SYMPTOMS WHICH HAVE RESOLVED. HOPEFULLY CARDIZEM MIGHT HELP THIS. 14. HISTORY OF RENAL ARTERY STENOSIS STATUS POST LEFT RENAL ARTERY STENT. 15. HISTORY OF GOUT. 16. HISTORY OF MILD AORTIC STENOSIS. 17. MODERATE MITRAL REGURGITATION. 18. HISTORY OF RIGHT BREAST CANCER, SYMPTOMATICALLY. 19. ANXIETY. 20. SEVERE DEPRESSION. PLAN: Note that the patient's amlodipine and Coreg have been discontinued, and the patient has been started on Cardizem CD 180 mg p.o. q.[address] discussion with [address] De Luna, the patient's contract administrator, as the patient's kidney function is improved and is now stage 3 will start the patient on lisinopril 20 mg p.o. b.i.d. along with losartan. The patient will receive 40 mg of Lasix IV push. Blood pressure still not well controlled. As mentioned earlier, the patient's amlodipine and Coreg have been discontinued, and the patient has been started on Cardizem CD 180 mg p.o. q.12 h. and also lisinopril 20 mg p.o. q.12 h. Will recheck the patient's kidney functions in the a.m. This is after discussion with the patient's contract administrator, Dr. De Luna. In July 2016, she had a vascular ultrasound which showed the patient's site of stent in the left renal artery and no significant stenosis of the right renal artery. As mentioned earlier, the patient's amlodipine and Coreg have been discontinued. Will start the patient on Cardizem 180 mg p.o. q.12 h. and also will add lisinopril 20 mg p.o. q.12 h. Continue the losartan. Will recheck the patient's laboratory data in the morning. The patient will benefit from physical therapy due to severe deconditioning. Discussed with patient and patient's daughter. All clinical details have been explained to the patient and the patient's daughter. Will recheck the patient's liver functions, and if they are stable, may go up on the lisinopril. Will definitely need an outpatient psychiatric evaluation and also extensive physical therapy at a rehabilitation center or at home. Note, 35 minutes were spent on this patient including review of the patient's medications and adjusting the patient's medications. More than 50% of the time was spent on direct patient care. I also discussed findings of x-ray and her glucose with the patient and patient's daughter. Also care coordinated with the other care providers on the case. Dr. Porter will be covering from tomorrow. DICTATING PHYSICIAN: KEN GIBSON M.D. [id number] PHY#: [id number] ID: [id number] JOB#: [id number] ACCT: [id number] cc:KEN GIBSON M.D. >
[2016-10-08 07:13] LABS: ABSOLUTE EOSINOPHILS # (AUTO) 0.1 10^3/uL (0.0-0.6); ABSOLUTE LYMPHOCYTES (AUTO) 0.8 10^3/uL (0.5-4.7); ABSOLUTE MONOCYTES (AUTO) 0.4 10^3/uL (0.1-1.4); ABSOLUTE NEUT (AUTO) 2.8 10^3/uL (1.7-8.2); EOSINOPHILS % (AUTO) 3.2 % (0-6); HEMATOCRIT 32.1 % (36.0-47.0); HEMOGLOBIN 10.7 g/dL (12.0-15.5); LYMPHOCYTES % (AUTO) 20.4 % (13-45); MEAN CORPUSCULAR HEMOGLOBIN 30.4 pg (27.0-33.4); MEAN CORPUSCULAR HGB CONC 33.4 g/dL (32.0-36.0); MEAN CORPUSCULAR VOLUME 91 fl (80-97); MONOCYTES % (AUTO) 8.8 % (3-13); RED BLOOD COUNT 3.53 10^6/uL (3.72-5.28); RED CELL DISTRIBUTION WIDTH 15.6 % (11.5-14.0); SEGMENTED NEUTROPHILS % (AUTO) 66.6 % (42-78); WHITE BLOOD COUNT 4.1 10^3/uL (4.0-10.5)
[2016-10-08 07:34] LABS: ALANINE AMINOTRANSFERASE 30 U/L (9-52); ALBUMIN 3.1 g/dL (3.5-5.0); ALKALINE PHOSPHATASE 79 U/L (38-126); ANION GAP 8 (5-19); ASPARTATE AMINO TRANSFERASE 16 U/L (14-36); BILIRUBIN,TOTAL 0.5 mg/dL (0.2-1.3); BLOOD UREA NITROGEN 40 mg/dL (7-20); CALCIUM 10.7 mg/dL (8.4-10.2); CARBON DIOXIDE 32 mmol/L (22-30); CHLORIDE 97 mmol/L (98-107); CREATININE RESULT 1.59 mg/dL (0.52-1.25); GLUCOSE 179 mg/dL (75-110); POTASSIUM 4.1 mmol/L (3.6-5.0); SODIUM 137.3 mmol/L (137-145)
[2016-10-08] MEDS ORDERED: DILTIAZEM HCL 180 MG CAPSULE.CR PO SCH (08:02)
--- NOTE | 2016-10-08 08:12 | PDOC PROGRESS REPORT ---
Subjective Progress Note for:: 10/08/16 Subjective:: The patient is still complaining of not feeling well. Her new complaint is that her heart rate goes up when she goes to the bathroom and she short of breath. This morning her O2 saturation was 87% on room air. That will qualify her for home O2 which might help with her breathing issues. Her heart rate this morning was 106 after she got up and went to the bathroom which might be a combination of sinus tach and hypoxemia. Physical Exam Vital Signs: Temp Pulse Resp BP Pulse Ox 98.6 F 82 20 129/65 H 87 L 10/08/16 00:10 10/08/16 07:00 10/08/16 00:10 10/08/16 00:10 10/08/16 00:10 Intake & Output 10/07/16 10/08/16 10/09/16 06:59 06:59 06:59 Intake Total 1193 935 Output Total 200 Balance 993 935 Weight 95 kg 98.3 kg General appearance: PRESENT: mild distress Head exam: PRESENT: atraumatic Eye exam: PRESENT: conjunctiva pink Neck exam: ABSENT: carotid bruit Respiratory exam: PRESENT: crackles Cardiovascular exam: PRESENT: systolic murmur, tachycardia Murmur grade: 3 Pulses: PRESENT: +1 pedal pulses bilateral Extremities exam: PRESENT: full ROM Musculoskeletal exam: PRESENT: ambulatory Neurological exam: PRESENT: awake Psychiatric exam: PRESENT: flat affect Results Laboratory Results: 10/08/16 07:02 10/08/16 07:02 10/07/16 10/08/16 10/08/16 21:50 07:02 07:02 WBC 4.1 RBC 3.53 L Hgb 10.7 L Hct 32.1 L MCV 91 MCH 30.4 MCHC 33.4 RDW 15.6 H Plt Count 190 Seg Neutrophils % 66.6 Lymphocytes % 20.4 Monocytes % 8.8 Eosinophils % 3.2 Basophils % 1.0 Absolute Neutrophils 2.8 Absolute Lymphocytes 0.8 Absolute Monocytes 0.4 Absolute Eosinophils 0.1 Absolute Basophils 0.0 Sodium 137.9 137.3 Potassium 4.4 4.1 Chloride 96 L 97 L Carbon Dioxide 34 H 32 H Anion Gap 8 8 BUN 40 H 40 H Creatinine 1.43 H 1.59 H Est GFR ( Amer) 43 L 38 L Est GFR (Non-Af Amer) 35 L 31 L Glucose 143 H 179 H Calcium 10.8 H 10.7 H Total Bilirubin 0.8 0.5 AST 20 16 ALT 24 30 Alkaline Phosphatase 78 79 Total Protein 6.3 6.0 L Albumin 3.7 3.1 L Impressions: Upper GI and Small Bowel X-Ray 10/03/16 00:00 IMPRESSION: Disorganized esophageal contractions with few tertiary contractions. No stricture or esophageal obstruction. No hiatal hernia. No gastroesophageal reflux today. Limited view of the stomach and proximal small bowel is unremarkable. Chest X-Ray 10/07/16 00:00 IMPRESSION: No significant interval change. Findings as noted above Assessment & Plan - Diagnosis (1) Diabetes mellitus type 2 Is this a current diagnosis for this admission?: YesPlan: Stable (2) Hypoglycemia Is this a current diagnosis for this admission?: Yes (3) Chronic kidney disease, stage IV (severe) Is this a current diagnosis for this admission?: YesPlan: Stable we will continue with diuretics (4) Coronary artery disease Qualifiers: Coronary Disease-Associated Artery/Lesion type: [place] artery [place] vs. transplanted heart: [place] heart Associated angina: without angina Qualified Code(s): I25.10 - Atherosclerotic heart disease of [place] coronary artery without angina pectoris Is this a current diagnosis for this admission?: YesPlan: Stable. Cardiology has readjusted the medications (5) Hypokalemia Is this a current diagnosis for this admission?: Yes (6) Hypomagnesemia Is this a current diagnosis for this admission?: Yes (7) GERD (gastroesophageal reflux disease) Qualifiers: Esophagitis presence: without esophagitis Qualified Code(s): K21.9 - Gastro-esophageal reflux disease without esophagitis Is this a current diagnosis for this admission?: Yes (8) Anemia of chronic disease Is this a current diagnosis for this admission?: Yes (10) Hypoxemia requiring supplemental oxygen Is this a current diagnosis for this admission?: YesPlan: Possibly related to cardiomyopathy and some fluid overload. We'll place on fluid restriction. Will give IV Lasix. Will order home O2
[2016-10-08] MEDS: HUM INSULIN NPH/REG INSULIN HM 100 UNIT/1 ML 3 ML SUBCUT SCH ×2 (08:13→16:58)
[2016-10-08] MEDS: SUCRALFATE 1 GM TABLET PO SCH ×4 (08:13→23:01)
[2016-10-08] MEDS: PAROXETINE HCL 20 MG TABLET PO SCH (08:13)
[2016-10-08] MEDS ORDERED: FUROSEMIDE INJ/PF 40 MG/4 ML SDV IV ONE (08:30)
[2016-10-08] MEDS: FENOFIBRATE NANOCRYSTALLIZED 145 MG TABLET PO SCH (09:10)
[2016-10-08] MEDS: DILTIAZEM HCL 240 MG CAPSULE.CR PO SCH ×2 (09:10→23:01)
[2016-10-08] MEDS: ISOSORBIDE MONONITRATE 30 MG TAB.ER.24H PO SCH (09:10)
[2016-10-08] MEDS: ASPIRIN 81 MG TABLET, CHEWABLE PO SCH (09:10)
[2016-10-08] MEDS: ALLOPURINOL 100 MG TABLET PO SCH (09:10)
[2016-10-08] MEDS: LOSARTAN POTASSIUM 50 MG TABLET PO SCH (09:10)
[2016-10-08] MEDS: FAMOTIDINE 20 MG TABLET PO SCH ×2 (09:11→23:01)
[2016-10-08] MEDS: FUROSEMIDE 40 MG TABLET PO SCH (09:11)
[2016-10-08] MEDS: MAGNESIUM OXIDE 400 MG TABLET PO SCH ×2 (09:11→17:00)
[2016-10-08] MEDS: FLUTICASONE NASAL SPRAY 50 MCG/SPRY 120 SPRAY/16 GM NASL SCH ×2 (09:14→23:01)
[2016-10-08] MEDS: DOCUSATE SODIUM 100 MG CAPSULE PO SCH ×2 (09:14→17:00)
--- NOTE | 2016-10-08 10:34 | PDOC PROGRESS REPORT ---
Subjective Progress Note for:: 10/08/16 Subjective:: Patient seems to be doing better with gradual improvement. Patient however still feels significantly weak. Pt is denying any chest arm or neck discomfort. Patient denying any PND, orthopnea. Patient denied any sustained palpitations, dizziness, syncope, near syncope. Patient denying any fever chills. Patient denying any other significant discomfort. Patient is maintaining AV paced rhythm. Review of systems: Rest review of systems negative. Medications: Medications have been reviewed. Physical Exam Vital Signs: Temp Pulse Resp BP Pulse Ox 98.6 F 82 20 129/65 H 87 L 10/08/16 00:10 10/08/16 07:00 10/08/16 00:10 10/08/16 00:10 10/08/16 00:10 Intake & Output 10/07/16 10/08/16 10/09/16 06:59 06:59 06:59 Intake Total 1193 935 Output Total 200 Balance 993 935 Weight 95 kg 98.3 kg Exam: GENERAL: well-nourished and in no acute distress. Alert and oriented x3 HEAD: Atraumatic, normocephalic. EYES: Pupils equal round and reactive to light, extraocular movements intact, sclera anicteric, conjunctiva are normal. ENT: TMs normal, nares patent, oropharynx clear without exudates. Moist mucous membranes. No oral ulcerations or bleeding gums noted NECK: supple without lymphadenopathy. Trachea is central. No cervical or axillary lymphadenopathy noted. Carotids are 2+, JVD WNL LUNGS: Respiration seems nonlabored, no significant accessory muscle action noted. Breath sounds clear to auscultation bilaterally and equal noted. No wheezes rales or rhonchi noted. No significant dullness noted on percussion. CHEST: Palpation of the chest wall shows no significant chest wall tenderness. No other significant abnormalities noted. Pacemaker noted on left side. 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 ABDOMEN: Soft, no significant tenderness appreciated, normoactive bowel sounds. No guarding, no rebound. No rigidity noted . No masses appreciated. EXTREMITIES: Pedal pulses are 1-2+, no calf tenderness noted. No clubbing or cyanosis.trace to 1+ pedal edema noted NEUROLOGICAL: Focused neurological exam showed no significant neurologic deficit. Normal speech, no focal weakness appreciated. PSYCH: Normal mood, normal affect. Judgment and insight within normal limits. SKIN: No significant ecchymosis, rash, ulcerations or signs of pruritus noted. MUSCULOSKELETAL EXAM: No significant joint swelling noted. Results Laboratory Results: 10/08/16 07:02 10/08/16 07:02 10/07/16 10/08/16 10/08/16 21:50 07:02 07:02 WBC 4.1 RBC 3.53 L Hgb 10.7 L Hct 32.1 L MCV 91 MCH 30.4 MCHC 33.4 RDW 15.6 H Plt Count 190 Seg Neutrophils % 66.6 Lymphocytes % 20.4 Monocytes % 8.8 Eosinophils % 3.2 Basophils % 1.0 Absolute Neutrophils 2.8 Absolute Lymphocytes 0.8 Absolute Monocytes 0.4 Absolute Eosinophils 0.1 Absolute Basophils 0.0 Sodium 137.9 137.3 Potassium 4.4 4.1 Chloride 96 L 97 L Carbon Dioxide 34 H 32 H Anion Gap 8 8 BUN 40 H 40 H Creatinine 1.43 H 1.59 H Est GFR ( Amer) 43 L 38 L Est GFR (Non-Af Amer) 35 L 31 L Glucose 143 H 179 H Calcium 10.8 H 10.7 H Total Bilirubin 0.8 0.5 AST 20 16 ALT 24 30 Alkaline Phosphatase 78 79 Total Protein 6.3 6.0 L Albumin 3.7 3.1 L Impressions: Upper GI and Small Bowel X-Ray 10/03/16 00:00 IMPRESSION: Disorganized esophageal contractions with few tertiary contractions. No stricture or esophageal obstruction. No hiatal hernia. No gastroesophageal reflux today. Limited view of the stomach and proximal small bowel is unremarkable. Chest X-Ray 10/07/16 00:00 IMPRESSION: No significant interval change. Findings as noted above Assessment & Plan - Diagnosis (1) Near syncope Is this a current diagnosis for this admission?: Yes (2) Diabetes mellitus type 2 Is this a current diagnosis for this admission?: Yes (3) Hypomagnesemia Is this a current diagnosis for this admission?: Yes (4) Mitral regurgitation Qualifiers: Cardiac valve disease etiology: nonrheumatic Qualified Code(s): I34.0 - Nonrheumatic mitral (valve) insufficiency Is this a current diagnosis for this admission?: Yes (5) Valvular heart disease Is this a current diagnosis for this admission?: Yes (6) Chronic kidney disease (CKD) Qualifiers: Chronic kidney disease stage: stage 3 (moderate) Qualified Code(s): N18.3 - Chronic kidney disease, stage 3 (moderate) Is this a current diagnosis for this admission?: Yes (7) Dyspnea Qualifiers: Dyspnea type: dyspnea on exertion Qualified Code(s): R06.09 - Other forms of dyspnea Is this a current diagnosis for this admission?: Yes (8) CHF (congestive heart failure) Qualifiers: Congestive heart failure type: diastolic Congestive heart failure chronicity: chronic Qualified Code(s): I50.32 - Chronic diastolic ( congestive) heart failure Is this a current diagnosis for this admission?: Yes - Notes Notes: Near syncope: This was most likely related to hypoglycemia. This has been corrected. Patient will benefit from ambulation. Diabetes: Currently is stable. Recommend good control of blood sugar. However should avoid any hypoglycemia. Patient being expertly managed by primary care M.Lucila Hypomagnesemia: This is being corrected. Mitral regurgitation: Patient will benefit from periodic echocardiogram. Valvular heart disease: Currently stable. Periodic follow-up is required. Chronic kidney disease: Based on current renal functions this is most likely stage III. General Manager [employer] is following.Patient seems to have chronic kidney disease stage 3-4. Creatinine been stable. Avoid any nephrotoxic agents, IV contrast agent dye etc. consider nephrology evaluation. Presence of chronic kidney disease is a prognostic factor. Congestive heart failure: Based on prior echocardiogram, patient most likely has chronic congestive heart failure based on diastolic dysfunction. Patient already on diuretic therapy. Dyspnea: Most likely related to diastolic dysfunction along with deconditioning and valvular heart disease. - Time Time with patient: Greater than 35 minutes - Recent echocardiogram and nuclear stress test results were reviewed. These were I believe performed at Dr. Chinchilla's office. These results were reviewed. These results were kindly summarized by Dr. Chinchilla in his note.
[2016-10-08] MEDS: INSULIN REG, HUMAN 100 UNIT/ML 3 ML VIAL (PYX) SUBCUT PRN ×2 (12:14→23:00)
[2016-10-08] MEDS: ANASTROZOLE 1 MG TABLET PO SCH (23:00)
[2016-10-09 07:29] LABS: ANION GAP 10 (5-19); BLOOD UREA NITROGEN 45 mg/dL (7-20); CALCIUM 10.6 mg/dL (8.4-10.2); CARBON DIOXIDE 31 mmol/L (22-30); CHLORIDE 98 mmol/L (98-107); CREATININE RESULT 1.63 mg/dL (0.52-1.25); GLUCOSE 197 mg/dL (75-110)
[2016-10-09] MEDS: SUCRALFATE 1 GM TABLET PO SCH ×2 (07:54→12:09)
[2016-10-09] MEDS: PAROXETINE HCL 20 MG TABLET PO SCH (07:54)
[2016-10-09] MEDS: HUM INSULIN NPH/REG INSULIN HM 100 UNIT/1 ML 3 ML SUBCUT SCH (07:54)
--- NOTE | 2016-10-09 08:14 | PDOC DISCHARGE SUMMARY ---
General - Admit/Disc Date/PCP Admission Date/Primary Care Provider: 09/29/16 11:52 YO CHASE, Discharge Date: 10/09/16 - Discharge Diagnosis (1) Diabetes mellitus type 2 Is this a current diagnosis for this admission?: YesSummary: Continue current dose of insulin (2) Hypoglycemia Is this a current diagnosis for this admission?: Yes (3) Chronic kidney disease, stage IV (severe) Is this a current diagnosis for this admission?: YesSummary: Stable continue with current medications and follow-up with nephrology (4) Coronary artery disease Is this a current diagnosis for this admission?: YesSummary: Stable with rate control. Continue current medications and follow-up with cardiology (5) Hypokalemia Is this a current diagnosis for this admission?: Yes (6) Hypomagnesemia Is this a current diagnosis for this admission?: YesSummary: Continue supplemental magnesium (7) GERD (gastroesophageal reflux disease) Is this a current diagnosis for this admission?: YesSummary: Because of possible cause of hypokalemia leukemia and hypomagnesemia from the PPIs the recommendation by the GI was to stop the PPIs and start the H2 blockers (8) Anemia of chronic disease Is this a current diagnosis for this admission?: Yes (10) Hypoxemia requiring supplemental oxygen Is this a current diagnosis for this admission?: YesSummary: The patient's O2 saturation on room air 1 day prior to discharge was 87%. Home O2 was ordered with portable O2 - Additional Information Resuscitation Status: Full Code Discharge Diet: As Tolerated Discharge Activity: Activity As Tolerated Home Medications: Allopurinol [Zyloprim 100 mg Tablet] 100 mg PO DAILY 09/29/16 Anastrozole [Arimidex 1 mg Tablet] 1 mg PO QHS 09/29/16 Ascorbic Acid [Vitamin C 500 mg Tablet] 500 mg PO DAILY 09/29/16 Aspirin [Aspirin 81 mg Chewable Tablet] 81 mg PO DAILY 09/29/16 Fenofibrate Nanocrystallized [Triglide] 160 mg PO DAILY 09/29/16 Fluticasone Propionate [Flonase Nasal [place] 50 Mcg/[place] 16 gm] 1 spray NASL Q12 09/29/16 Hum Insulin NPH/Reg Insulin Hm [Insulin 70-30 (NPH/Reg) 100 unit/mL] 75 unit SUBCUT BID 09/29/16 Hydrocodone/Acetaminophen [Brick 10-325 mg Tablet] 1 tab PO Q6HP PRN 09/29/16 Isosorbide Mononitrate [Imdur 60 mg Tablet.er] 60 mg PO DAILY 09/29/16 Loratadine 10 mg PO DAILY 09/29/16 Losartan Potassium [Cozaar 100 mg Tablet] 100 mg PO DAILY 09/29/16 Metolazone [Zaroxolyn 2.5 mg Tablet] 2.5 mg PO DAILY 09/29/16 Nitroglycerin [Nitrostat] 0.4 mg SL Q5MP PRN 09/29/16 Bryant-3 Acid Ethyl Esters [Lovaza 1 gm Capsule] 2 gm PO BID 09/29/16 Ondansetron HCl [Zofran 8 mg Tablet] 8 mg PO Q8HP PRN 09/29/16 Paroxetine HCl [Paxil 20 mg Tablet] 20 mg PO QAM 09/29/16 Potassium Chloride [Klor-Con 10 Meq Tablet.sa] 10 meq PO DAILY 09/29/16 Rosuvastatin Calcium [Crestor 10 mg Tablet] 10 mg PO DAILY 09/29/16 Simethicone [Gas-X] 80 mg PO QIDP PRN 09/29/16 Sucralfate [Carafate 1 gm Tablet] 1 gm PO BID 09/29/16 Torsemide [Demadex 20 mg Tablet] 60 mg PO BID 09/29/16 Diltiazem HCl [Cardizem Cd 240 mg Capsule.cr] 240 mg PO Q12 #60 capsule.cr 10/09 Famotidine [Pepcid 20 mg Tablet] 20 mg PO Q12 #60 tablet 10/09/16 Isosorbide Mononitrate [Imdur 30 mg Tablet.er] 90 mg PO DAILY #30 tab.er.24h Magnesium Oxide [Mag-Ox 400 mg Tablet] 400 mg PO BID #60 tablet 10/09/16 History of Present Illness History of Present Illness: JACINTA LUNSFORD is a 81 year old female Hospital Course Hospital Course: The patient did well during the hospitalization it took a while for her to stabilize. Because of anticoagulation with heparin the patient had a very slow GI bleed. Once the heparin was stopped the H&H has stabilized after the transfusion. The patient underwent an upper endoscopy which did not show any acute bleeding just some irritation and gastritis. The patient was having hard time with exertion which was triggering tachycardia. Once the medications have been readjusted and patient placed on O2 things have settled down prior to discharge. Physical Exam Vital Signs: Temp Pulse Resp BP Pulse Ox 97.6 F 60 19 157/51 H 95 10/09/16 05:26 10/09/16 05:26 10/09/16 05:26 10/09/16 05:26 10/09/16 00:00 Intake & Output 10/08/16 10/09/16 10/10/16 06:59 06:59 06:59 Intake Total 935 1315 Output Total 2 Balance 935 1313 Weight 98.3 kg 99.2 kg General appearance: PRESENT: no acute distress Head exam: PRESENT: atraumatic Eye exam: PRESENT: conjunctiva pink Neck exam: ABSENT: carotid bruit Respiratory exam: PRESENT: clear to auscultation dion, crackles Cardiovascular exam: PRESENT: +S1, +S2 Murmur grade: 3 Pulses: ABSENT: normal carotid pulses Vascular exam: PRESENT: normal capillary refill GI/Abdominal exam: PRESENT: soft Extremities exam: PRESENT: full ROM Musculoskeletal exam: PRESENT: ambulatory Neurological exam: PRESENT: alert, awake Results Laboratory Results: 10/08/16 07:02 10/09/16 06:56 10/09/16 06:56 Sodium 139.0 Potassium 4.0 Chloride 98 Carbon Dioxide 31 H Anion Gap 10 BUN 45 H Creatinine 1.63 H Est GFR ( Amer) 37 L Est GFR (Non-Af Amer) 30 L Glucose 197 H Calcium 10.6 H Impressions: Upper GI and Small Bowel X-Ray 10/03/16 00:00 IMPRESSION: Disorganized esophageal contractions with few tertiary contractions. No stricture or esophageal obstruction. No hiatal hernia. No gastroesophageal reflux today. Limited view of the stomach and proximal small bowel is unremarkable. Chest X-Ray 10/07/16 00:00 IMPRESSION: No significant interval change. Findings as noted above
[2016-10-09 09:06] VITALS: BP 159/60
[2016-10-09] MEDS: FAMOTIDINE 20 MG TABLET PO SCH (09:14)
[2016-10-09] MEDS: ASPIRIN 81 MG TABLET, CHEWABLE PO SCH (09:14)
[2016-10-09] MEDS: ISOSORBIDE MONONITRATE 30 MG TAB.ER.24H PO SCH (09:14)
[2016-10-09] MEDS: MAGNESIUM OXIDE 400 MG TABLET PO SCH (09:14)
[2016-10-09] MEDS: FENOFIBRATE NANOCRYSTALLIZED 145 MG TABLET PO SCH (09:15)
[2016-10-09] MEDS: ALLOPURINOL 100 MG TABLET PO SCH (09:15)
[2016-10-09] MEDS: LOSARTAN POTASSIUM 50 MG TABLET PO SCH (09:15)
[2016-10-09] MEDS: DILTIAZEM HCL 240 MG CAPSULE.CR PO SCH (09:15)
[2016-10-09] MEDS: FUROSEMIDE 40 MG TABLET PO SCH (09:15)
[2016-10-09] MEDS: DOCUSATE SODIUM 100 MG CAPSULE PO SCH (09:16)
[2016-10-09] MEDS: FLUTICASONE NASAL SPRAY 50 MCG/SPRY 120 SPRAY/16 GM NASL SCH (09:16)
--- NOTE | 2016-10-09 10:42 | PDOC PROGRESS REPORT ---
Subjective Progress Note for:: 10/09/16 Subjective:: Patient seems to be doing better with gradual improvement. Patient however still feels significantly weak but improved. Patient still has dyspnea on exertion but again improved. Pt is denying any chest arm or neck discomfort. Patient denying any PND, orthopnea. Patient denied any sustained palpitations, dizziness, syncope, near syncope. Patient denying any fever chills. Patient denying any other significant discomfort. Patient is maintaining AV paced rhythm. Review of systems: Rest review of systems negative. Medications: Medications have been reviewed. Physical Exam Vital Signs: Temp Pulse Resp BP Pulse Ox 97.5 F 57 L 24 H 159/60 H 99 10/09/16 09:02 10/09/16 09:02 10/09/16 09:02 10/09/16 09:02 10/09/16 09:02 Intake & Output 10/08/16 10/09/16 10/10/16 06:59 06:59 06:59 Intake Total 935 1315 Output Total 2 Balance 935 1313 Weight 98.3 kg 99.2 kg Exam: GENERAL: well-nourished and in no acute distress. Alert and oriented x3 HEAD: Atraumatic, normocephalic. EYES: Pupils equal round and reactive to light, extraocular movements intact, sclera anicteric, conjunctiva are normal. ENT: TMs normal, nares patent, oropharynx clear without exudates. Moist mucous membranes. No oral ulcerations or bleeding gums noted NECK: supple without lymphadenopathy. Trachea is central. No cervical or axillary lymphadenopathy noted. Carotids are 2+, JVD WNL LUNGS: Respiration seems nonlabored, no significant accessory muscle action noted. Breath sounds clear to auscultation bilaterally and equal noted. No wheezes rales or rhonchi noted. No significant dullness noted on percussion. CHEST: Palpation of the chest wall shows no significant chest wall tenderness. No other significant abnormalities noted. Pacemaker noted on left side. 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 ABDOMEN: Soft, no significant tenderness appreciated, normoactive bowel sounds. No guarding, no rebound. No rigidity noted . No masses appreciated. EXTREMITIES: Pedal pulses are 1-2+, no calf tenderness noted. No clubbing or cyanosis.1+ pedal edema noted NEUROLOGICAL: Focused neurological exam showed no significant neurologic deficit. Normal speech, no focal weakness appreciated. PSYCH: Normal mood, normal affect. Judgment and insight within normal limits. SKIN: No significant ecchymosis, rash, ulcerations or signs of pruritus noted. MUSCULOSKELETAL EXAM: No significant joint swelling noted. Results Laboratory Results: 10/08/16 07:02 10/09/16 06:56 10/09/16 06:56 Sodium 139.0 Potassium 4.0 Chloride 98 Carbon Dioxide 31 H Anion Gap 10 BUN 45 H Creatinine 1.63 H Est GFR ( Amer) 37 L Est GFR (Non-Af Amer) 30 L Glucose 197 H Calcium 10.6 H Impressions: Upper GI and Small Bowel X-Ray 10/03/16 00:00 IMPRESSION: Disorganized esophageal contractions with few tertiary contractions. No stricture or esophageal obstruction. No hiatal hernia. No gastroesophageal reflux today. Limited view of the stomach and proximal small bowel is unremarkable. Chest X-Ray 10/07/16 00:00 IMPRESSION: No significant interval change. Findings as noted above Assessment & Plan - Diagnosis (1) Near syncope Is this a current diagnosis for this admission?: Yes (2) Diabetes mellitus type 2 Is this a current diagnosis for this admission?: Yes (3) Hypomagnesemia Is this a current diagnosis for this admission?: Yes (4) Mitral regurgitation Qualifiers: Cardiac valve disease etiology: nonrheumatic Qualified Code(s): I34.0 - Nonrheumatic mitral (valve) insufficiency Is this a current diagnosis for this admission?: Yes (5) Valvular heart disease Is this a current diagnosis for this admission?: Yes (6) Chronic kidney disease (CKD) Qualifiers: Chronic kidney disease stage: stage 3 (moderate) Qualified Code(s): N18.3 - Chronic kidney disease, stage 3 (moderate) Is this a current diagnosis for this admission?: Yes (7) Dyspnea Qualifiers: Dyspnea type: dyspnea on exertion Qualified Code(s): R06.09 - Other forms of dyspnea Is this a current diagnosis for this admission?: Yes (8) CHF (congestive heart failure) Qualifiers: Congestive heart failure type: diastolic Congestive heart failure chronicity: chronic Qualified Code(s): I50.32 - Chronic diastolic ( congestive) heart failure Is this a current diagnosis for this admission?: Yes - Notes Notes: Near syncope: This was most likely related to hypoglycemia. This has been corrected. Patient will benefit from ambulation. Diabetes: Currently is stable. Recommend good control of blood sugar. However should avoid any hypoglycemia. Patient being expertly managed by primary care Brittany Hypomagnesemia: Currently stable. Mitral regurgitation: Patient will benefit from periodic echocardiogram. Valvular heart disease: Currently stable. Periodic follow-up is required. Chronic kidney disease: Based on current renal functions this is most likely stage III. Brick [employer] Bearer is following.Patient seems to have chronic kidney disease stage 3-4. Creatinine been stable. Avoid any nephrotoxic agents, IV contrast agent dye etc. consider nephrology evaluation. Presence of chronic kidney disease is a prognostic factor. Congestive heart failure: Based on prior echocardiogram, patient most likely has chronic congestive heart failure based on diastolic dysfunction. Patient already on diuretic therapy. Dyspnea: Most likely related to diastolic dysfunction along with deconditioning and valvular heart disease. Patient would benefit from regular walking program, strengthening exercises etc. - Time Time with patient: 15-25 minutes - CODE STATUS was discussed, patient remains full code. Surrogate decision-maker unchanged. Multiple medical problems were addressed.More than 50% of the time spent coordinating care, discussing management plans with involved caregivers. Management plans discussed with involved personnels. Medical decision making was of moderate complexity.
--- NOTE | 2016-10-10 08:15 | EKG REPORT ---
SEVERITY:- ABNORMAL ECG - ATRIAL-VENTRICULAR DUAL-PACED RHYTHM : Confirmed by: Saba Chinchilla MD 10-Oct-2016 08:14:45
== END 2016-10-09 15:30 | disposition home health service (06) | DRG 638 ==
LOC: ER 07:56 → EH 11:45 → OBSVTOIN 11:52 → 4N 14:07
PROVIDERS: ADMIT Internal Medicine; ATTEND Internal Medicine
PROC: 30233N1 Transfusion of Nonautologous Red Blood Cells into Peripheral Vein, Percutaneous Approach (ICD-10-PCS; 2016-10-04)
PROC: 0DB68ZX Excision of Stomach, Via Natural or Artificial Opening Endoscopic, Diagnostic (ICD-10-PCS; principal; 2016-10-04 10:00)
DX: E11.649 Type 2 diabetes mellitus with hypoglycemia without coma (principal); I13.0 Hypertensive heart and chronic kidney disease with heart failure and stage 1 through stage 4 chronic kidney disease, or unspecified chronic kidney disease; N39.0 Urinary tract infection, site not specified; I50.32 Chronic diastolic (congestive) heart failure; Z68.41 Body mass index [BMI] 40.0-44.9, adult; K92.2 Gastrointestinal hemorrhage, unspecified; E11.22 Type 2 diabetes mellitus with diabetic chronic kidney disease; K29.50 Unspecified chronic gastritis without bleeding; E87.6 Hypokalemia; E83.52 Hypercalcemia; K21.9 Gastro-esophageal reflux disease without esophagitis; N18.4 Chronic kidney disease, stage 4 (severe); E11.65 Type 2 diabetes mellitus with hyperglycemia; T45.515A Adverse effect of anticoagulants, initial encounter; I25.10 Atherosclerotic heart disease of native coronary artery without angina pectoris; J44.9 Chronic obstructive pulmonary disease, unspecified; J45.909 Unspecified asthma, uncomplicated; E66.9 Obesity, unspecified; I34.0 Nonrheumatic mitral (valve) insufficiency; F41.9 Anxiety disorder, unspecified; F32.9 Major depressive disorder, single episode, unspecified; D63.1 Anemia in chronic kidney disease; Z96.0 Presence of urogenital implants; K59.8 Other specified functional intestinal disorders; K44.9 Diaphragmatic hernia without obstruction or gangrene; R13.10 Dysphagia, unspecified; E78.5 Hyperlipidemia, unspecified; R19.2 Visible peristalsis; R09.02 Hypoxemia; E89.0 Postprocedural hypothyroidism; Z95.0 Presence of cardiac pacemaker; Z86.73 Personal history of transient ischemic attack (TIA), and cerebral infarction without residual deficits; Z90.710 Acquired absence of both cervix and uterus; Z79.82 Long term (current) use of aspirin; Z79.899 Other long term (current) drug therapy; Z87.39 Personal history of other diseases of the musculoskeletal system and connective tissue; Z85.3 Personal history of malignant neoplasm of breast; Z79.4 Long term (current) use of insulin; Z88.6 Allergy status to analgesic agent; Z88.0 Allergy status to penicillin; Z88.2 Allergy status to sulfonamides; Z91.041 Radiographic dye allergy status; Z99.81 Dependence on supplemental oxygen; Z82.49 Family history of ischemic heart disease and other diseases of the circulatory system; Z90.49 Acquired absence of other specified parts of digestive tract; Z83.3 Family history of diabetes mellitus
CPT/HCPCS: 36415; 36430; 43239; 71010; 71020; 74249; 80048; 80053; 81001; 82550; 82553; 82607; 82728; 82746; 82962; 83540; 83550; 83690; 83735; 84100; 84439; 84443; 84466; 84484; 85025; 85045; 86850; 86870; 86900; 86901; 86920; 86922; 87040; 87086; 88305; 93005; 93010; 96365; 96366; 96368; 99291; J0171; J1200; J1610; J1644; J1815; J1940; J2250; J2310; J2405; J2550; J3010; J3475; J3490; P9016

== ENCOUNTER 2016-11-13 09:45 | Outpatient (CLI) | payer MEDICARE, MEDICAID ==
[~2016-11-13 09:45] MED LIST changes: +ACETAMINOPHEN 325 MG TABLET PO PRN; +DIPHENHYDRAMINE HCL 50 MG/ML VIAL IV PRN; +FERUMOXYTOL (NON-ESRD) 510 MG/NS 100 ML IV PRN; +NORMAL SALINE 250 ML IV PRN; -PROPOFOL INJ 200 MG/20 ML VIAL IV ONE
[2016-11-13 10:33] VITALS: BP 132/47
== END 2016-11-13 11:05 | disposition home or self-care (01) ==
LOC: II 09:45 → 5TH 10:26 → II 11:05
PROVIDERS: ATTEND Specialist
PROC: 3E033GC Introduction of Other Therapeutic Substance into Peripheral Vein, Percutaneous Approach (ICD-10-PCS; principal; 2016-11-13)
DX: D50.9 Iron deficiency anemia, unspecified (principal); N18.9 Chronic kidney disease, unspecified
CPT/HCPCS: 96374; A9270; Q0138; 96367

== ENCOUNTER 2016-11-20 12:48 | Outpatient (CLI) | payer MEDICARE, MEDICAID ==
[2016-11-20 13:27] VITALS: BP 128/49
== END 2016-11-20 14:18 | disposition home or self-care (01) ==
LOC: II 12:48 → 5TH 12:58 → II 14:18
PROVIDERS: ATTEND Specialist
PROC: 3E033GC Introduction of Other Therapeutic Substance into Peripheral Vein, Percutaneous Approach (ICD-10-PCS; principal; 2016-11-20)
PROC: 3E033GC Introduction of Other Therapeutic Substance into Peripheral Vein, Percutaneous Approach (ICD-10-PCS; 2016-11-20)
DX: D50.9 Iron deficiency anemia, unspecified (principal); N18.9 Chronic kidney disease, unspecified
CPT/HCPCS: 96365; 96375; A9270; Q0138; 96374

== ENCOUNTER 2016-11-25 05:31 | Inpatient (IN) | payer MEDICARE ==
--- NOTE | 2016-11-25 08:35 | ER Document Report ---
ED General - General Chief Complaint: Rectal Bleeding Stated Complaint: RECTAL BLEEDING Time seen by provider: 07:30 Mode of Arrival: Ambulatory Information source: Patient Notes: 81-year-old female who developed bilateral lower abdominal cramping yesterday morning and then approximately 2:00 this morning began having multiple episodes of bright red and dark red rectal bleeding. She reports a history of some prior rectal bleeding but has never had anything as severe as this has never had pain associated with it before. She denies fever, chills, cough, shortness breath, chest pain, back pain, hematemesis, melena, dysuria, or vaginal bleeding or discharge. She denies dizziness or syncope. Patient brings with her rc jar containing approximately 30 mL of dark red blood which she reports is rectal in origin Physical Exam: General: Alert, appears well. HEENT: Normocephalic. Atraumatic. PERRLA. Extraocular movements intact. Oropharynx clear. Neck: Supple. Non-tender. No JVD Respiratory: No respiratory distress. Clear and equal breath sounds bilaterally. Cardiovascular: Regular rate and rhythm. For over 6 systolic murmur no rub PMI not displaced Abdominal: Normal Inspection. Soft, moderate bilateral lower abdominal tenderness no guarding rebound rigidity or referred pain. No distension. Normal Bowel Sounds. Back: Non-tender. No deformity or step off. normal external female genitalia no blood in vaginal vault Rectal normal tone no anal fissures or external hemorrhoids mild tenderness on exam diffusely no roldan blood or melena Extremities: Moves all four extremities. Upper extremities: Normal inspection. Non-tender. Normal color. Normal ROM. Normal temperature. Lower extremities: Normal inspection. Non-tender. No edema. Normal color. Normal ROM. Normal temperature. Neurological: Speech clear mentation normal moves all 4 extremities to command ambulates with mild shuffling gait Psychological: Normal affect. Normal Mood. Skin: Warm. Dry. Normal color. TRAVEL OUTSIDE OF THE [place] IN LAST 30 DAYS: No - Related Data Allergies/Adverse Reactions: codeine [Codeine] Allergy (Severe, Verified 09/29/16 09:18) Hospitalized Penicillins Allergy (Severe, Verified 09/29/16 09:18) Redness, heat, swelling at site promethazine HCl [From Phenergan] Allergy (Unknown, Verified 09/29/16 09:18) PROBLEMS WITH LEGS Sulfa (Sulfonamide Antibiotics) Allergy (Unknown, Verified 09/29/16 09:18) Unknown reaction hydralazine HCl [From Apresoline] Adverse Reaction (Severe, Verified 09/29/16 09 :18) Cardiac arrest atorvastatin calcium [From Lipitor] Adverse Reaction (Verified 09/29/16 09:18) IV Contrast Allergy (Severe, Uncoded 09/29/16 09:18) ESRD Past Medical History - Social History Smoking Status: Former Smoker Chew tobacco use (# tins/day): No Frequency of alcohol use: None Drug Abuse: None Family History: CAD, DM, Hyperlipidemia, Hypertension Patient has suicidal ideation: No Patient has homicidal ideation: No - Past Medical History Cardiac Medical History: Reports: Hx Congestive Heart Failure, Hx Coronary Artery Disease, Hx Hypertension Denies: Hx Atrial Fibrillation, Hx Heart Attack, Hx Hypercholesterolemia, Hx Peripheral Vascular Disease, Hx Pulmonary Embolism, Hx Heart Murmur Pulmonary Medical History: Reports: Hx Asthma, Hx Bronchitis, Hx COPD, Hx Pneumonia Denies: Hx Respiratory Failure, Hx Sleep Apnea, Hx Tuberculosis Neurological Medical History: Reports: Hx Migraine. Denies: Hx Cerebrovascular Accident, Hx Seizures Endocrine Medical History: Reports: Hx Diabetes Mellitus Type 1, Hx Diabetes Mellitus Type 2. Denies: Hx Graves' Disease, Hx Hyperthyroidism, Hx Hypothyroidism Renal/ Medical History: Denies: Hx End Stage Renal Disease, Hx Kidney Stones, Hx Ovarian Cysts, Hx Peritoneal Dialysis, Hx Pelvic Inflammatory Disease Malignancy Medical History: Reports: Hx Breast Cancer. Denies: Hx Cervical Cancer, Hx Leukemia, Hx Lung Cancer, Hx Ovarian Cancer GI Medical History: Reports: Hx Diverticulitis, Hx Gastroesophageal Reflux Disease, Hx Irritable Bowel, Hx Ulcer. Denies: Hx Crohn's Disease, Hx Hiatal Hernia, Hx Liver Failure Musculoskeltal Medical History: Reports Hx Arthritis, Denies Hx Fibromyalgia, Reports Hx Gout, Denies Hx Multiple Sclerosis, Denies Hx Muscular Dystrophy Psychiatric Medical History: Reports: Hx Depression Denies: Hx Bipolar Disorder, Hx Dementia, Hx Post Traumatic Stress Disorder, Hx Schizophrenia Traumatic Medical History: Reports: Hx Fractures Infectious Medical History: Denies: Hx HIV Past Surgical History: Reports: Hx Abdominal Surgery - Abdominal and umbilical hernia, Hx Appendectomy, Hx Bowel Surgery - Instetinal bleed surgically repaired in the s, Hx Cholecystectomy, Hx Hysterectomy, Hx Kidney (Renal Surgery) - Left kidney stent, Hx Thyroid Surgery. Denies: Hx Section, Hx Colostomy, Hx Coronary Artery Bypass Graft, Hx Gastric Bypass Surgery, Hx Herniorrhaphy, Hx Mastectomy, Hx Pacemaker, Hx Tonsillectomy, Hx Tubal Ligation - Immunizations Hx Diphtheria, Pertussis, Tetanus Vaccination: No - Tetanus out of date Hx Pneumococcal Vaccination: 07/18/14 Review of Systems - Review of Systems Constitutional: denies: Chills, Fever EENT: denies: Ear pain, Throat pain Cardiovascular: denies: Chest pain, Dyspnea Respiratory: denies: Cough, Short of breath Gastrointestinal: See HPI Genitourinary: denies: Burning, Dysuria Female Genitourinary: Post menopausal. denies: Vaginal discharge Musculoskeletal: denies: Back pain Skin: denies: Rash Hematologic/Lymphatic: denies: Swollen glands Neurological/Psychological: denies: Weakness, Numbness Physical Exam - Vital signs Vitals: Temp Pulse Resp BP Pulse Ox 97.7 F 62 18 174/64 H 100 11/25/16 05:53 11/25/16 05:53 11/25/16 05:53 11/25/16 05:53 11/25/16 05:53 Course - Re-evaluation Re-evalutation: 11/25/16 11:17 Patient continues to have moderate bilateral lower abdominal tenderness but no guarding rebound or rigidity. I suspect sigmoid diverticulosis his source of her lower GI bleeding. I also note that her renal function is worse than her baseline and this may be related to volume depletion. She does not require transfusion at this point and is hemodynamically stable but she is reporting her rectal bleeding is much worse than what she typically has been given her abdominal pain as well as a "be prudent to have her in the hospital at least overnight for serial H&H's IV hydration and recheck of creatinine. I discussed case with her physician Dr. Lomas who agrees to admission - Vital Signs Vital signs: Temp Pulse Resp BP Pulse Ox 97.7 F 62 17 155/57 H 100 11/25/16 05:53 11/25/16 05:53 11/25/16 10:38 11/25/16 10:38 11/25/16 10:38 - Laboratory Result Diagrams: 11/25/16 08:39 11/25/16 08:39 Laboratory results interpreted by me: 11/25/16 11/25/16 11/25/16 07:57 08:25 08:39 RBC 3.22 L Hgb 9.9 L Hct 29.3 L RDW 16.3 H Seg Neutrophils % 79.3 H Lymphocytes % 12.5 L Potassium Chloride Carbon Dioxide BUN Creatinine Est GFR ( Amer) Est GFR (Non-Af Amer) Glucose Calcium Ur Leukocyte Esterase TRACE H Urine Ascorbic Acid 20 H Stool for White Cells FEW H 11/25/16 08:39 RBC Hgb Hct RDW Seg Neutrophils % Lymphocytes % Potassium 3.4 L Chloride 94 L Carbon Dioxide 32 H BUN 96 H Creatinine 2.26 H Est GFR ( Amer) 25 L Est GFR (Non-Af Amer) 21 L Glucose 195 H Calcium 11.1 H Ur Leukocyte Esterase Urine Ascorbic Acid Stool for White Cells - Diagnostic Test Radiology reviewed: Image reviewed, Reports reviewed - EKG Interpretation by Me Additional EKG results interpreted by me: 11/25/16 09:31 EKG reviewed by myself shows electronic AV pacing occasional PVC Discharge - Discharge Clinical Impression: Gastrointestinal hemorrhage Qualifiers: GI bleed type/associated pathology: diverticulosis Qualified Code(s): K57.91 - Diverticulosis of intestine, part unspecified, without perforation or abscess with bleeding Acute renal failure Qualifiers: Acute renal failure type: unspecified Qualified Code(s): N17.9 - Acute kidney failure, unspecified Condition: Fair Disposition: ADMITTED OBSERVATION Admitting Provider: [facility] Unit Admitted: Telemetry
[2016-11-25] MEDS ORDERED: MORPHINE SULFATE 10 MG/ML INJ IV ONE (08:41)
[2016-11-25 08:47] LABS: APPEARANCE,URINE CLEAR; BILIRUBIN,URINE NEGATIVE (NEGATIVE); GLUCOSE, URINE NEGATIVE (NEGATIVE); KETONES,URINE NEGATIVE (NEGATIVE); LEUKOCYTE ESTERASE,URINE TRACE (NEGATIVE); NITRITE,URINE NEGATIVE (NEGATIVE); PROTEIN,URINE NEGATIVE (NEGATIVE); URINE SPECIFIC GRAVITY 1.005; UROBILINOGEN,URINE NEGATIVE mg/dL (<2.0)
[2016-11-25 08:57] LABS: ABSOLUTE BASOPHILS # (AUTO) 0.1 10^3/uL (0.0-0.2); ABSOLUTE EOSINOPHILS # (AUTO) 0.1 10^3/uL (0.0-0.6); ABSOLUTE LYMPHOCYTES (AUTO) 1.1 10^3/uL (0.5-4.7); ABSOLUTE MONOCYTES (AUTO) 0.5 10^3/uL (0.1-1.4); ABSOLUTE NEUT (AUTO) 6.6 10^3/uL (1.7-8.2); BASOPHILS % (AUTO) 0.8 % (0-2); EOSINOPHILS % (AUTO) 1.5 % (0-6); HEMATOCRIT 29.3 % (36.0-47.0); HEMOGLOBIN 9.9 g/dL (12.0-15.5); HGB HCT DIFFERENCE 0.4; LYMPHOCYTES % (AUTO) 12.5 % (13-45); MEAN CORPUSCULAR HEMOGLOBIN 30.7 pg (27.0-33.4); MEAN CORPUSCULAR HGB CONC 33.8 g/dL (32.0-36.0); MEAN CORPUSCULAR VOLUME 91 fl (80-97); MONOCYTES % (AUTO) 5.9 % (3-13); RED BLOOD COUNT 3.22 10^6/uL (3.72-5.28); RED CELL DISTRIBUTION WIDTH 16.3 % (11.5-14.0); SEGMENTED NEUTROPHILS % (AUTO) 79.3 % (42-78); WHITE BLOOD COUNT 8.4 10^3/uL (4.0-10.5)
[2016-11-25 09:16] LABS: ALANINE AMINOTRANSFERASE 29 U/L (9-52); ALBUMIN 4.6 g/dL (3.5-5.0); ALKALINE PHOSPHATASE 79 U/L (38-126); ANION GAP 17 (5-19); ASPARTATE AMINO TRANSFERASE 29 U/L (14-36); BILIRUBIN,DIRECT 0.4 mg/dL (0.0-0.4); BILIRUBIN,TOTAL 0.7 mg/dL (0.2-1.3); BLOOD UREA NITROGEN 96 mg/dL (7-20); CALCIUM 11.1 mg/dL (8.4-10.2); CARBON DIOXIDE 32 mmol/L (22-30); CHLORIDE 94 mmol/L (98-107); CREATININE RESULT 2.26 mg/dL (0.52-1.25); GLUCOSE 195 mg/dL (75-110); POTASSIUM 3.4 mmol/L (3.6-5.0); SODIUM 142.5 mmol/L (137-145); TOTAL PROTEIN 7.9 g/dL (6.3-8.2)
[2016-11-25] MEDS ORDERED: NORMAL SALINE 1000 ML 1,000 ML IV ONE (10:04)
[2016-11-25] MEDS ORDERED: ONDANSETRON HCL INJ/PF 4 MG/2 ML SDV IV ONE (10:30)
[2016-11-25] MEDS ORDERED: PANTOPRAZOLE SODIUM 40 MG VIAL IV ONE (11:20)
--- NOTE | 2016-11-25 13:25 | EKG REPORT ---
SEVERITY:- ABNORMAL ECG - VENTRICULAR-PACED COMPLEXES : Confirmed by: Mayo Stokes MD 25-Nov-2016 13:24:28
[2016-11-25] MEDS: MORPHINE SULFATE 10 MG/ML INJ IV PRN ×2 (13:38→17:00)
[2016-11-25] MEDS ORDERED: NORMAL SALINE 1000 ML 1,000 ML IV PRN (17:07)
[2016-11-25] MEDS ORDERED: ONDANSETRON HCL 8 MG TABLET PO PRN (17:22)
[2016-11-25] MEDS ORDERED: (PENDING PHARMACY ID) (Potassium Chloride [K-Tab Er] 20 MEQ) PO SCH (18:00)
[2016-11-25] MEDS ORDERED: CARVEDILOL 6.25 MG TABLET PO SCH ×2 (18:00→22:00)
[2016-11-25] MEDS ORDERED: TORSEMIDE 20 MG TABLET PO SCH (18:00)
[2016-11-25] MEDS: MAGNESIUM OXIDE 400 MG TABLET PO SCH (18:11)
[2016-11-25] MEDS: OMEGA-3 ACID ETHYL ESTERS 1 GM CAPSULE PO SCH (18:11)
[2016-11-25] MEDS: HUM INSULIN NPH/REG INSULIN HM 100 UNIT/1 ML 3 ML SUBCUT SCH (18:56)
[2016-11-25] MEDS ORDERED: GLUCAGON,HUMAN RECOMB 1 MG INJ IM PRN (20:11)
[2016-11-25] MEDS ORDERED: DEXTROSE 40% GEL 15 GM TUBE PO PRN ×2 (20:11)
[2016-11-25] MEDS ORDERED: DEXTROSE 50%-WATER 25 GM/50 ML DISP.SYRIN IV PRN ×2 (20:11)
[2016-11-25 21:11] LABS: ANION GAP 19 (5-19); BLOOD UREA NITROGEN 85 mg/dL (7-20); CALCIUM 11.3 mg/dL (8.4-10.2); CARBON DIOXIDE 31 mmol/L (22-30); CHLORIDE 96 mmol/L (98-107); CREATININE RESULT 1.95 mg/dL (0.52-1.25); GLUCOSE 155 mg/dL (75-110); SODIUM 145.9 mmol/L (137-145)
[2016-11-25 21:32] LABS: POTASSIUM 2.9 mmol/L (3.6-5.0)
[2016-11-25] MEDS: POTASSI CL 20 MEQ/50 ML RIDER 20 MEQ/50 ML RTUPB IV SCH (21:58)
[2016-11-25] MEDS ORDERED: FAMOTIDINE 20 MG TABLET PO SCH ×2 (22:00)
[2016-11-25] MEDS ORDERED: GABAPENTIN 100 MG CAPSULE PO SCH (22:00)
[2016-11-25] MEDS ORDERED: METOPROLOL TARTRATE PF/INJ 5 MG/5 ML SDV IV ONE (22:45)
[2016-11-25] MEDS: POTASSIUM CHLORIDE 10 MEQ TABLET.SA PO SCH (23:57)
[2016-11-25] MEDS: FLUTICASONE NASAL SPRAY 50 MCG/SPRY 120 SPRAY/16 GM NASL SCH (23:57)
[2016-11-25] MEDS: DILTIAZEM HCL 240 MG CAPSULE.CR PO SCH (23:57)
[2016-11-25] MEDS: GABAPENTIN 300 MG CAPSULE PO SCH (23:57)
[2016-11-26] MEDS: POTASSI CL 20 MEQ/50 ML RIDER 20 MEQ/50 ML RTUPB IV SCH (00:18)
[2016-11-26] MEDS: MORPHINE SULFATE 10 MG/ML INJ IV PRN ×5 (01:26→22:25)
[2016-11-26 07:51] LABS: MEAN CORPUSCULAR VOLUME 91 fl (80-97)
[2016-11-26 07:57] LABS: HEMATOCRIT 27.6 % (36.0-47.0); HEMOGLOBIN 9.2 g/dL (12.0-15.5); MEAN CORPUSCULAR HEMOGLOBIN 30.5 pg (27.0-33.4); MEAN CORPUSCULAR HGB CONC 33.4 g/dL (32.0-36.0); RED BLOOD COUNT 3.03 10^6/uL (3.72-5.28); RED CELL DISTRIBUTION WIDTH 16.3 % (11.5-14.0)
[2016-11-26 07:58] LABS: WHITE BLOOD COUNT 18.8 10^3/uL (4.0-10.5)
[2016-11-26 08:04] LABS: ANION GAP 14 (5-19); BLOOD UREA NITROGEN 85 mg/dL (7-20); CALCIUM 10.4 mg/dL (8.4-10.2); CARBON DIOXIDE 32 mmol/L (22-30); CHLORIDE 97 mmol/L (98-107); CREATININE RESULT 2.61 mg/dL (0.52-1.25); GLUCOSE 128 mg/dL (75-110); POTASSIUM 3.2 mmol/L (3.6-5.0); SODIUM 142.7 mmol/L (137-145)
[2016-11-26] MEDS: PAROXETINE HCL 20 MG TABLET PO SCH (08:11)
[2016-11-26] MEDS ORDERED: NORMAL SALINE 1000 ML 1,000 ML IV PRN (09:03)
--- NOTE | 2016-11-26 09:28 | PDOC CONSULTATION ---
Consultation Consult Date: 11/26/16 Attending physician:: ALEX BIGGS Consult reason:: lower gi bleeding History of Present Illness Admission Date/PCP: 11/25/16 17:00 YO CHASE, History of Present Illness: JACINTA LUNSFORD is a 81 year old female admitted for lower gi bleeding patient had previously been seen earlier this year underwent a colonoscopy had 3 polyps removed, no malignancy patient had significant diverticulosis patient admitted for presumed diverticular bleeding however also having pain and had CT scan no evidence of diverticulitis, however does have a leukocytosis will need to be treated with antibiotics will need to be strict NPO patient had clears for breakfast patient now admitted x2 for diverticular bleeding statistically diverticular bleeding is usually on the right side of the colon no her recent colonoscopy she had both right and left sided diverticulosis she has chronic kidney disease patient is at risk for subsequent future bleeding, each of which may be more severe thereafter would consider possible surgery Past Medical History Cardiac Medical History: Reports: Congestive Heart Failure, Coronary Artery Disease, Hypertension Denies: Atrial Fibrillation, Myocardial Infarction, Hyperlipidema, Peripheral Vascular Disease, Pulmonary Embolism, Heart Murmur Pulmonary Medical History: Reports: Asthma, Bronchitis, Chronic Obstructive Pulmonary Disease (COPD), Pneumonia Denies: Respiratory Failure, Sleep Apnea, Tuberculosis Neurological Medical History: Reports: Migraine Denies: Seizures Endocrine Medical History: Reports: Diabetes Mellitus Type 1, Diabetes Mellitus Type 2 Denies: Hyperthyroidism, Hypothyroidism Renal/ Medical History: Denies: End Stage Renal Disease Malignancy Medical History: Reports: Breast Cancer Denies: Cervical Cancer, Leukemia, Lung Cancer, Ovarian Cancer GI Medical History: Reports: Diverticulitis, Gastroesophageal Reflux Disease Denies: Crohn's Disease, Hiatal Hernia Musculoskeltal Medical History: Reports: Arthritis, Gout Denies: Fibromyalgia Psychiatric Medical History: Reports: Depression Denies: Bipolar Disorder, Dementia, Post Traumatic Stress Disorder Hematology: Reports: Anemia Denies: Hemophilia, Sickle Cell Disease Infectious Medical History: Denies: HIV Past Surgical History Past Surgical History: Reports: Appendectomy, Cholecystectomy, Hysterectomy Denies: Amputation, Section, Colostomy, Coronary Artery Bypass Graft , Gastric Bypass Surgery, Herniorrhaphy, Mastectomy, Pacemaker, Tonsillectomy, Tubal Ligation Social History Smoking Status: Never Smoker Frequency of Alcohol Use: None Hx Recreational Drug Use: No Drugs: None Hx Prescription Drug Abuse: No - Advance Directive Resuscitation Status: Full Code Family History Family History: CAD, DM, Hyperlipidemia, Hypertension Parental Family History Reviewed: Yes Children Family History Reviewed: Unknown Sibling(s) Family History Reviewed.: Unknown Medication/Allergy Home Medications: Allopurinol [Zyloprim 100 mg Tablet] 100 mg PO DAILY 11/25/16 Anastrozole [Arimidex 1 mg Tablet] 1 mg PO DAILY 11/25/16 Ascorbic Acid [Vitamin C 500 mg Tablet] 500 mg PO DAILY 11/25/16 Aspirin [Adult Low Dose Aspirin EC] 81 mg PO DAILY 11/25/16 Carvedilol [Coreg] 6.25 mg PO BID 11/25/16 Cetirizine HCl [Zyrtec 10 mg Tablet] 10 mg PO DAILY 11/25/16 Diltiazem HCl [Cardizem Cd 240 mg Capsule.cr] 240 mg PO Q12 11/25/16 Famotidine [Pepcid 20 mg Tablet] 20 mg PO Q12 11/25/16 Fenofibrate Nanocrystallized [Triglide] 160 mg PO DAILY 11/25/16 Fluticasone Propionate [Flonase Nasal [place] 50 Mcg/[place] 16 gm] 1 spray NASL Q12 11/25/16 Gabapentin [Neurontin 100 mg Capsule] 300 mg PO QHS 11/25/16 Hydrocodone/Acetaminophen [[place] 10-325 mg Tablet] 1 tab PO QIDP PRN 11/25/16 Insulin NPH Hum/Reg Insulin Hm [Humulin 70-30 Vial] 75 units SQ BID 11/25/16 Insulin NPH Hum/Reg Insulin Hm [Humulin 70-30 Vial] 85 units SQ QAM 11/25/16 Isosorbide Mononitrate [Imdur 30 mg Tablet.er] 90 mg PO DAILY 11/25/16 Losartan Potassium [Cozaar 100 mg Tablet] 100 mg PO DAILY 11/25/16 Magnesium Oxide [Mag-Ox 400 mg Tablet] 400 mg PO TID 11/25/16 Metolazone [Zaroxolyn 2.5 mg Tablet] 2.5 mg PO DAILY 11/25/16 Nitroglycerin [Nitrostat 0.4 mg (1/150 Gr) Tabs 25/Bottle] 0.4 mg SL Q5MP PRN [place]-3 Acid Ethyl Esters [Lovaza 1 gm Capsule] 2 gm PO BID 11/25/16 Ondansetron HCl [Zofran 8 mg Tablet] 8 mg PO Q8HP PRN 11/25/16 Paroxetine HCl [Paxil 20 mg Tablet] 20 mg PO QAM 11/25/16 Potassium Chloride [K-Tab ER] 20 meq PO BID 11/25/16 Rosuvastatin Calcium [Crestor 10 mg Tablet] 10 mg PO DAILY 11/25/16 Torsemide [Demadex 20 mg Tablet] 60 mg PO BID 11/25/16 Allergies/Adverse Reactions: codeine [Codeine] Allergy (Severe, Verified 09/29/16 09:18) Hospitalized Penicillins Allergy (Severe, Verified 09/29/16 09:18) Redness, heat, swelling at site promethazine HCl [From Phenergan] Allergy (Unknown, Verified 09/29/16 09:18) PROBLEMS WITH LEGS Sulfa (Sulfonamide Antibiotics) Allergy (Unknown, Verified 09/29/16 09:18) Unknown reaction hydralazine HCl [From Apresoline] Adverse Reaction (Severe, Verified 09/29/16 09 :18) Cardiac arrest atorvastatin calcium [From Lipitor] Adverse Reaction (Verified 09/29/16 09:18) IV Contrast Allergy (Severe, Uncoded 09/29/16 09:18) ESRD Review of Systems Constitutional: ABSENT: fever(s), headache(s), night sweats, weakness Eyes: ABSENT: visual disturbances Ears: ABSENT: hearing changes Nose, Mouth, and Throat: ABSENT: mouth pain Cardiovascular: ABSENT: chest pain, dyspnea on exertion, orthropnea Respiratory: ABSENT: dyspnea, hemoptysis Gastrointestinal: PRESENT: heartburn, hematochezia. ABSENT: coffee ground emesis, diarrhea, dysphagia, hematemesis Genitourinary: ABSENT: dysuria, hematuria Musculoskeletal: ABSENT: deformity, joint swelling Integumentary: ABSENT: lesions, pruritus Neurological: ABSENT: focal weakness, syncope, tremor(s) Endocrine: ABSENT: polydipsia, polyphagia, polyuria Hematologic/Lymphatic: ABSENT: easy bruising Physical Exam Vital Signs: Temp Pulse Resp BP Pulse Ox 98.7 F 67 20 126/37 H 100 11/26/16 07:38 11/26/16 07:38 11/26/16 07:38 11/26/16 07:38 11/26/16 07:38 Intake & Output 11/25/16 11/26/16 11/27/16 06:59 06:59 06:59 Intake Total 1137 Balance 1137 Weight 78.2 kg General appearance: PRESENT: cooperative, mild distress Head exam: PRESENT: atraumatic, normocephalic Eye exam: PRESENT: EOMI, PERRLA. ABSENT: nystagmus, periorbital swelling, scleral icterus Mouth exam: PRESENT: moist Throat exam: ABSENT: tonsillar exudate, tonsillogmegaly Neck exam: ABSENT: meningismus, tenderness, thyromegaly Respiratory exam: PRESENT: symmetrical. ABSENT: chest wall tenderness, tachypnea Cardiovascular exam: PRESENT: RRR, +S1, +S2 Pulses: PRESENT: normal carotid pulses GI/Abdominal exam: PRESENT: tenderness. ABSENT: Crenshaw's sign, rebound, rigid Neurological exam: PRESENT: oriented to time, oriented to situation, reflexes normal Psychiatric exam: PRESENT: appropriate affect Skin exam: PRESENT: normal color. ABSENT: mottled, pallor, petechiae, urticaria , vesicles Results Laboratory Results: 11/26/16 07:32 11/26/16 07:32 11/25/16 11/26/16 11/26/16 20:45 07:32 07:32 WBC 18.8 H D RBC 3.03 L Hgb 9.2 L Hct 27.6 L MCV 91 MCH 30.5 MCHC 33.4 RDW 16.3 H Plt Count 172 Sodium 145.9 H 142.7 Potassium 2.9 L* 3.2 L Chloride 96 L 97 L Carbon Dioxide 31 H 32 H Anion Gap 19 14 BUN 85 H 85 H Creatinine 1.95 H 2.61 H Est GFR ( Amer) 30 L 21 L Est GFR (Non-Af Amer) 25 L 18 L Glucose 155 H 128 H Calcium 11.3 H 10.4 H Magnesium 2.0 Impressions: Abdomen/Pelvis CT 11/25/16 07:56 IMPRESSION: Diverticulosis. No acute findings. Assessment & Plan - Diagnosis (1) Diverticulitis large intestine Plan: will need to start antibiotics patient will need adjusted dosage for her chronic kidney disease will need a total of 2 weeks NPO for now (2) GI bleed Qualifiers: GI bleed type/associated pathology: diverticulosis Qualified Code(s): K57.91 - Diverticulosis of intestine, part unspecified, without perforation or abscess with bleeding Plan: has had a 2nd episode, more predisposed to a future bleed patient may not be a surgical candidate given her multiple medical problems more than likely does have a diverticular bleeding it has been more than 3 months since her polyp removal and is not due to post polypectomy bleeding statistically it is no the right side would get opinion of surgery, conservative management may be necessary - Time Time Spent: 50 to 70 Minutes
[2016-11-26] MEDS ORDERED: (PENDING PHARMACY ID) (Fenofibrate Nanocrystallized [Triglide] 160 MG) PO SCH (10:00)
[2016-11-26] MEDS ORDERED: LOSARTAN POTASSIUM 50 MG TABLET PO SCH (10:00)
[2016-11-26] MEDS ORDERED: ASCORBIC ACID 500 MG TABLET PO SCH (10:00)
[2016-11-26] MEDS ORDERED: CIPROFLOXACIN 400 MG/D5W RTU 400 MG/200 ML RTUPB IV SCH (10:00)
[2016-11-26] MEDS ORDERED: METOLAZONE 2.5 MG TABLET PO SCH (10:00)
[2016-11-26] MEDS ORDERED: CETIRIZINE 10 MG TABLET PO SCH (10:00)
[2016-11-26] MEDS ORDERED: FENOFIBRATE NANOCRYSTALLIZED 145 MG TABLET PO SCH (10:00)
[2016-11-26] MEDS: MAGNESIUM OXIDE 400 MG TABLET PO SCH ×3 (10:25→17:46)
[2016-11-26] MEDS: ASPIRIN 81 MG TABLET, ENT COATED PO SCH (10:26)
[2016-11-26] MEDS: POTASSIUM CHLORIDE 10 MEQ TABLET.SA PO SCH ×2 (10:26→21:38)
[2016-11-26] MEDS: ISOSORBIDE MONONITRATE 30 MG TAB.ER.24H PO SCH (10:27)
[2016-11-26] MEDS: DILTIAZEM HCL 240 MG CAPSULE.CR PO SCH ×2 (10:27→21:46)
[2016-11-26] MEDS: OMEGA-3 ACID ETHYL ESTERS 1 GM CAPSULE PO SCH ×2 (10:27→17:46)
[2016-11-26] MEDS: ALLOPURINOL 100 MG TABLET PO SCH (10:28)
[2016-11-26] MEDS: ANASTROZOLE 1 MG TABLET PO SCH (10:28)
[2016-11-26] MEDS: METOPROLOL TARTRATE PF/INJ 5 MG/5 ML SDV IV SCH (10:28)
[2016-11-26] MEDS: ONDANSETRON HCL INJ/PF 4 MG/2 ML SDV IV PRN ×3 (10:30→22:25)
[2016-11-26] MEDS: FLUTICASONE NASAL SPRAY 50 MCG/SPRY 120 SPRAY/16 GM NASL SCH ×2 (10:30→22:24)
--- NOTE | 2016-11-26 11:53 | PDOC H&P ---
History of Present Illness Admission Date/PCP: 11/26/16 08:34 YO CHASE, Patient complains of: Rectal bleeding. Abdominal pain History of Present Illness: The patient is an 81-year-old white female with extensive past medical history who presented to the emergency room with the left lower quadrant pain and rectal bleeding which she brought in in a rc jar. This is the second or third episode of rectal bleeding. She did have a colonoscopy about 3 months ago with polypectomies Past Medical History Cardiac Medical History: Reports: Atrial Fibrillation, Congestive Heart Failure , Coronary Artery Disease, Hypertension, Peripheral Vascular Disease, Heart Murmur Denies: Myocardial Infarction, Hyperlipidema, Pulmonary Embolism Pulmonary Medical History: Reports: Asthma, Bronchitis, Chronic Obstructive Pulmonary Disease (COPD), Pneumonia Denies: Respiratory Failure, Sleep Apnea, Tuberculosis Neurological Medical History: Reports: Migraine Denies: Seizures Endocrine Medical History: Reports: Diabetes Mellitus Type 2 Denies: Hyperthyroidism, Hypothyroidism Renal/ Medical History: Reports: Chronic Kidney Disease Malignancy Medical History: Reports: Breast Cancer Denies: Cervical Cancer, Leukemia, Lung Cancer, Ovarian Cancer GI Medical History: Reports: Diverticulitis, Gastroesophageal Reflux Disease Denies: Crohn's Disease, Hiatal Hernia Musculoskeltal Medical History: Reports: Arthritis, Gout Denies: Fibromyalgia Psychiatric Medical History: Reports: Depression Denies: Bipolar Disorder, Dementia, Post Traumatic Stress Disorder Hematology: Reports: Anemia Denies: Hemophilia, Sickle Cell Disease Infectious Medical History: Denies: HIV Past Surgical History Past Surgical History: Left kidney stent placement umbilical hernia, appendectomy intestinal bleed surgically repaired, cholecystectomy, hysterectomy, thyroid surgery, , pacemaker, tubal ligation, Past Surgical History: Reports: Appendectomy, Cholecystectomy, Hysterectomy Denies: Amputation, Section, Colostomy, Coronary Artery Bypass Graft , Gastric Bypass Surgery, Herniorrhaphy, Mastectomy, Pacemaker, Tonsillectomy, Tubal Ligation Social History Lives with: Family Smoking Status: Never Smoker Frequency of Alcohol Use: None Hx Recreational Drug Use: No Drugs: None Hx Prescription Drug Abuse: No - Advance Directive Resuscitation Status: Full Code Family History Family History: CAD, DM, Hyperlipidemia, Hypertension Parental Family History Reviewed: Yes Children Family History Reviewed: Yes Sibling(s) Family History Reviewed.: Yes Medication/Allergy Home Medications: Allopurinol [Zyloprim 100 mg Tablet] 100 mg PO DAILY 11/25/16 Anastrozole [Arimidex 1 mg Tablet] 1 mg PO DAILY 11/25/16 Ascorbic Acid [Vitamin C 500 mg Tablet] 500 mg PO DAILY 11/25/16 Aspirin [Adult Low Dose Aspirin EC] 81 mg PO DAILY 11/25/16 Carvedilol [Coreg] 6.25 mg PO BID 11/25/16 Cetirizine HCl [Zyrtec 10 mg Tablet] 10 mg PO DAILY 11/25/16 Diltiazem HCl [Cardizem Cd 240 mg Capsule.cr] 240 mg PO Q12 11/25/16 Famotidine [Pepcid 20 mg Tablet] 20 mg PO Q12 11/25/16 Fenofibrate Nanocrystallized [Triglide] 160 mg PO DAILY 11/25/16 Fluticasone Propionate [Flonase Nasal [place] 50 Mcg/[place] 16 gm] 1 spray NASL Q12 11/25/16 Gabapentin [Neurontin 100 mg Capsule] 300 mg PO QHS 11/25/16 Hydrocodone/Acetaminophen [[place] 10-325 mg Tablet] 1 tab PO QIDP PRN 11/25/16 Insulin NPH Hum/Reg Insulin Hm [Humulin 70-30 Vial] 75 units SQ BID 11/25/16 Insulin NPH Hum/Reg Insulin Hm [Humulin 70-30 Vial] 85 units SQ QAM 11/25/16 Isosorbide Mononitrate [Imdur 30 mg Tablet.er] 90 mg PO DAILY 11/25/16 Losartan Potassium [Cozaar 100 mg Tablet] 100 mg PO DAILY 11/25/16 Magnesium Oxide [Mag-Ox 400 mg Tablet] 400 mg PO TID 11/25/16 Metolazone [Zaroxolyn 2.5 mg Tablet] 2.5 mg PO DAILY 11/25/16 Nitroglycerin [Nitrostat 0.4 mg (1/150 Gr) Tabs 25/Bottle] 0.4 mg SL Q5MP PRN [place]-3 Acid Ethyl Esters [Lovaza 1 gm Capsule] 2 gm PO BID 11/25/16 Ondansetron HCl [Zofran 8 mg Tablet] 8 mg PO Q8HP PRN 11/25/16 Paroxetine HCl [Paxil 20 mg Tablet] 20 mg PO QAM 11/25/16 Potassium Chloride [K-Tab ER] 20 meq PO BID 11/25/16 Rosuvastatin Calcium [Crestor 10 mg Tablet] 10 mg PO DAILY 11/25/16 Torsemide [Demadex 20 mg Tablet] 60 mg PO BID 11/25/16 Allergies/Adverse Reactions: codeine [Codeine] Allergy (Severe, Verified 09/29/16 09:18) Hospitalized Penicillins Allergy (Severe, Verified 09/29/16 09:18) Redness, heat, swelling at site promethazine HCl [From Phenergan] Allergy (Unknown, Verified 09/29/16 09:18) PROBLEMS WITH LEGS Sulfa (Sulfonamide Antibiotics) Allergy (Unknown, Verified 09/29/16 09:18) Unknown reaction hydralazine HCl [From Apresoline] Adverse Reaction (Severe, Verified 09/29/16 09 :18) Cardiac arrest atorvastatin calcium [From Lipitor] Adverse Reaction (Verified 09/29/16 09:18) IV Contrast Allergy (Severe, Uncoded 09/29/16 09:18) ESRD Review of Systems All systems: as per PMH Physical Exam Vital Signs: Temp Pulse Resp BP Pulse Ox 98.7 F 67 20 126/37 H 100 11/26/16 07:38 11/26/16 07:38 11/26/16 07:38 11/26/16 07:38 11/26/16 07:38 General appearance: PRESENT: morbidly obese, severe distress Eye exam: PRESENT: conjunctiva pink Mouth exam: PRESENT: dry mucosa Neck exam: PRESENT: carotid bruit, tenderness Respiratory exam: PRESENT: clear to auscultation dion Cardiovascular exam: PRESENT: irregular rhythm Pulses: PRESENT: +1 pedal pulses bilateral GI/Abdominal exam: PRESENT: distended, tenderness Extremities exam: PRESENT: full ROM Musculoskeletal exam: PRESENT: ambulatory Neurological exam: PRESENT: alert, awake Results Impressions: Abdomen/Pelvis CT 11/25/16 07:56 IMPRESSION: Diverticulosis. No acute findings. Assessment & Plan - Diagnosis (1) GI bleed Qualifiers: GI bleed type/associated pathology: diverticulitis Qualified Code(s) : K57.93 - Diverticulitis of intestine, part unspecified, without perforation or abscess with bleeding Is this a current diagnosis for this admission?: Yes (2) Diverticulitis large intestine Is this a current diagnosis for this admission?: Yes (3) Chronic kidney disease, stage IV (severe) Is this a current diagnosis for this admission?: Yes (4) Hypokalemia Is this a current diagnosis for this admission?: Yes (5) Valvular heart disease Is this a current diagnosis for this admission?: Yes (6) Coronary artery disease Qualifiers: Coronary Disease-Associated Artery/Lesion type: [place] artery [place] vs. transplanted heart: [place] heart Associated angina: without angina Qualified Code(s): I25.10 - Atherosclerotic heart disease of [place] coronary artery without angina pectoris Is this a current diagnosis for this admission?: Yes (7) Anemia of chronic disease Is this a current diagnosis for this admission?: Yes (8) Lower GI bleeding Is this a current diagnosis for this admission?: Yes (9) Diabetes mellitus type 2 Is this a current diagnosis for this admission?: Yes
[2016-11-26] MEDS ORDERED: METRONIDAZOLE 500 MG/NS RTU 100 ML IV SCH (12:00)
--- NOTE | 2016-11-26 12:01 | PDOC PROGRESS REPORT ---
Subjective Progress Note for:: 11/26/16 Subjective:: The patient is complaining of severe left lower quadrant pain. She denies any further rectal bleeding. She does not feel well and feels nauseous. Physical Exam Vital Signs: Temp Pulse Resp BP Pulse Ox 98.7 F 67 20 126/37 H 100 11/26/16 07:38 11/26/16 07:38 11/26/16 07:38 11/26/16 07:38 11/26/16 07:38 General appearance: PRESENT: mild distress Head exam: PRESENT: atraumatic Eye exam: PRESENT: conjunctiva pink Neck exam: PRESENT: carotid bruit Respiratory exam: PRESENT: crackles Cardiovascular exam: PRESENT: irregular rhythm Pulses: PRESENT: +1 pedal pulses bilateral GI/Abdominal exam: PRESENT: distended Extremities exam: PRESENT: full ROM Musculoskeletal exam: PRESENT: ambulatory Neurological exam: PRESENT: alert, awake Psychiatric exam: PRESENT: anxious Results Impressions: Abdomen/Pelvis CT 11/25/16 07:56 IMPRESSION: Diverticulosis. No acute findings. Assessment & Plan - Diagnosis (1) GI bleed Qualifiers: GI bleed type/associated pathology: diverticulitis Qualified Code(s) : K57.93 - Diverticulitis of intestine, part unspecified, without perforation or abscess with bleeding Is this a current diagnosis for this admission?: YesPlan: GI and surgical consultation. (2) Diverticulitis large intestine Is this a current diagnosis for this admission?: YesPlan: Nothing by mouth and IV fluids and antibiotics (3) Chronic kidney disease, stage IV (severe) Is this a current diagnosis for this admission?: YesPlan: Gentle hydration (4) Hypokalemia Is this a current diagnosis for this admission?: YesPlan: Supplemented with IV potassium. We'll continue with by mouth meds (5) Valvular heart disease Is this a current diagnosis for this admission?: Yes (6) Coronary artery disease Qualifiers: Coronary Disease-Associated Artery/Lesion type: [place] artery [place] vs. transplanted heart: [place] heart Associated angina: without angina Qualified Code(s): I25.10 - Atherosclerotic heart disease of [place] coronary artery without angina pectoris Is this a current diagnosis for this admission?: Yes (7) Anemia of chronic disease Is this a current diagnosis for this admission?: YesPlan: We'll recheck the blood count and will possibly need to transfuse (8) Lower GI bleeding Is this a current diagnosis for this admission?: YesPlan: Continue nothing by mouth and will recheck the blood counts. Might need partial or total colectomy (9) Diabetes mellitus type 2 Is this a current diagnosis for this admission?: YesPlan: We'll continue with insulin
[2016-11-26] MEDS: HUM INSULIN NPH/REG INSULIN HM 100 UNIT/1 ML 3 ML SUBCUT SCH ×2 (12:37→17:46)
--- NOTE | 2016-11-26 13:21 | Physician Advisory Note ---
Physician Advisor ProgressNote .: Pursuant to the plan for [facility], I have reviewed the medical record for this patient. Physician Advisor Statement: Possible documentation opportunities if attending agrees: 1. "Hypernatremia, likely related to intravascular volume depletion, improved" 2. ? - "Anemia of Acute Blood Loss due to GIBleed" [Hgb was 10.7 on 10/08, now 9.9 & 9.2] 3. "Anemia of Chronic Kidney Dz" [need to say which dz causing it] 4. "Chronic diastolic CHF" [or "chronic valvular CHF"? - - ECHO 2016 = EF 65%, mod MR, mild pulm HTN, mild conc LVH] 5. "Acute Kidney Injury on CKD stage 4" As always, if concerned about any unstable VS or abnormal labs, please comment on them - what bad things they might indicate, why they concern you - & note what doing about them. Please also document each day the potential clinical problems you are concerned could occur if pt not kept in hospital for tx at this time. (These points are dickey - if present in each note, attending's status decision should be sufficiently supported.) Discussion: 81yo female w/ chronic co-morbidities including obesity, CAD, chronic ___ CHF, moderate mitral regurg, pulmonary HTN, HTN, asthma, COPD, DM-2, breast CA, diverticulitis, IBS, GI ulcer, CKD-4, previous intestinal bleed surgically repaired, colon polypectomies, on ASA prior to arrival - presented 4/10 AM to ED w/bilalower abd cramping, then mult episodes BRB & dark red blood per rectum, renal fn worse than baseline. (+) T97.7, HR 62, BP 174/64, RR18, "severe distress", abd tender & distended, WBC 8.4, Hgb 9.9, plts wnl, Na 142, bicarb 32, K 3.4, BUN 96, Cr 2.26 [ baseline Cr = 1.4's] , glc 195, Ca 11.1, U/A =tr LE, sttol hem+ & few wbc, EKG AV paced. CT not showing the expected diverticulitis. Attending ordered Status: Elderly pt w/mult concerning medical problems, 2nd acute LGIBleed with abd pain as well, high risk for repeated, worsening bleeds per GI. On repeat bloodwork the first night, pt evidenced worsened hypokalemia, new hypernatremia, continued ALTA & ?acute metabolic alkalosis, After 1 night of hospital care, pt w/new severe leukocytosis, further worsened anemia, worsened ALTA, continued acid-base d/o & hypercalcemia, still w/abd pain + heartburn, GI network relations consultant saying pt needs to be strictly NPO for now, needs surgical eval for surgical correction of the bleeding if she is felt to be a candidate to tolerate the surgery. Pt clearly not sufficiently stabilized for d /c at this point, needs at least a 2nd night of monitoring & tx in inpatient hospital setting medically reasonable & necessary to protect pt's health, safety , & medical condition. Appropriate to change to Inpt status today. Thanks for your help with documentation accuracy/specificity improvement! Vanessa Pinon MD [facility] [place] Physician Advisor, Fellow of Hospital Medicine
[2016-11-26] MEDS: METRONIDAZOLE 500 MG/NS RTU 100 ML IV SCH ×2 (14:28→21:37)
[2016-11-26] MEDS: CIPROFLOXACIN 400 MG/D5W RTU 400 MG/200 ML RTUPB IV SCH (16:10)
[2016-11-26] MEDS: LANSOPRAZOLE 30 MG TAB.RAP.DR PO SCH (16:10)
--- NOTE | 2016-11-26 18:18 | CONSULTATION REPORT E ---
Consultation Report NAME: JACINTA LUNSFORD : 1935 AGE: 81Y DATE: 11/26/2016 536 A TO: JEWELL WOODALL M.D. FROM: YO CHASE M.D. Requesting Physician REASON FOR CONSULTATION: Patient with lower GI bleed. HISTORY OF PRESENT ILLNESS: This is an 81-year-old female who noted lower GI bleeding with pain to the left side just prior to going to the emergency room last night. She had a previous colonoscopy with polypectomy x3 about 3 months ago in the care of Dr. Lyman. Here she is also known to have chronic kidney disease. PAST MEDICAL HISTORY: 1. History of congestive heart failure. 2. Coronary artery disease. 3. Hypertension. 4. Diabetes mellitus. 5. COPD. 6. Asthma. 7. Arthritis. 8. Depression. ALLERGIES: 1. PENICILLIN. 2. SULFA. 3. CODEINE. 4. PRAVASTATIN. PAST SURGICAL HISTORY: 1. Appendectomy. 2. Cholecystectomy. 3. Hysterectomy. SOCIAL HISTORY: Denies tobacco or alcohol use or drug use. FAMILY HISTORY: Positive for coronary artery disease, diabetes mellitus and hypertension. REVIEW OF SYSTEMS: As in HPI. Has some nausea. Also had some diarrhea with blood in the stool. Denies any fever or chills. No cough or shortness of breath. Lower quadrant pains. Extremities with some edema both legs. Rest of the systems unremarkable. PHYSICAL EXAMINATION: GENERAL: Well-developed, Slightly obese 81-year-old female, alert and oriented, no apparent acute distress. NECK: Supple. No thyromegaly. LUNGS: Clear. HEART: Regular sinus rhythm. ABDOMEN: Soft with tenderness in the left lower quadrant and mild tenderness in the right lower quadrant areas. EXTREMITIES: No edema. LABORATORY STUDIES: White count is up to 18.8 this morning. Potassium up to 3.2. Blood sugar 142. Lactic acid last night was 0.7. BUN is 85 and creatinine is up to 2.61. Patient apparently had a dose of Lovenox this morning. We do not have coagulation study on her. PLAN: 1. Check coagulation studies and stop Lovenox. 2. Check stool for C. diff and repeat CBC and BMP. 3. Agree with starting her on IV antibiotics. 4. Will monitor her H and H. At this point because of comorbidities would hold of doing any surgical intervention at this time. I will continue to follow her with you. DICTATING PHYSICIAN: JEWELL WOODALL M.D. [id number] PHY#: [id number] ID: [id number] JOB#: [id number] ACCT: [id number] cc:JEWELL WOODALL M.D. >
[2016-11-26] MEDS: GABAPENTIN 300 MG CAPSULE PO SCH (21:38)
[2016-11-27] MEDS: METOPROLOL TARTRATE PF/INJ 5 MG/5 ML SDV IV SCH ×3 (01:26→23:09)
[2016-11-27] MEDS: METRONIDAZOLE 500 MG/NS RTU 100 ML IV SCH ×4 (06:05→20:30)
[2016-11-27] MEDS: LANSOPRAZOLE 30 MG TAB.RAP.DR PO SCH ×2 (06:06→17:37)
[2016-11-27 06:59] LABS: HEMOGLOBIN 8.1 g/dL (12.0-15.5); HGB HCT DIFFERENCE 0.3; MEAN CORPUSCULAR HEMOGLOBIN 31.3 pg (27.0-33.4); MEAN CORPUSCULAR HGB CONC 33.9 g/dL (32.0-36.0); MEAN CORPUSCULAR VOLUME 92 fl (80-97); RED CELL DISTRIBUTION WIDTH 16.5 % (11.5-14.0); WHITE BLOOD COUNT 9.3 10^3/uL (4.0-10.5)
[2016-11-27 07:02] LABS: ANION GAP 13 (5-19); BLOOD UREA NITROGEN 89 mg/dL (7-20); CALCIUM 9.6 mg/dL (8.4-10.2); CARBON DIOXIDE 27 mmol/L (22-30); CHLORIDE 98 mmol/L (98-107); CREATININE RESULT 3.69 mg/dL (0.52-1.25); GLUCOSE 116 mg/dL (75-110); POTASSIUM 3.4 mmol/L (3.6-5.0)
[2016-11-27 07:11] LABS: PROTHROMBIN TIME 14.5 SEC (11.4-15.4)
[2016-11-27 07:12] LABS: PARTIAL THROMBOPLASTIN TIME 34.3 SEC (23.5-35.8)
[2016-11-27] MEDS ORDERED: NORMAL SALINE 250 ML IV PRN ×2 (08:41)
--- NOTE | 2016-11-27 08:47 | PDOC PROGRESS REPORT ---
Subjective Progress Note for:: 11/27/16 Subjective:: The patient states to feel slightly better. Her abdominal pain has improved slightly. She still had some rectal bleeding yesterday. Physical Exam Vital Signs: Temp Pulse Resp BP Pulse Ox 97.9 F 60 17 130/45 H 99 11/27/16 07:53 11/27/16 07:58 11/27/16 07:53 11/27/16 07:58 11/27/16 07:53 Intake & Output 11/26/16 11/27/16 11/28/16 06:59 06:59 06:59 Intake Total 2495 Balance 2495 Weight 78.2 kg General appearance: PRESENT: mild distress Head exam: PRESENT: atraumatic Eye exam: PRESENT: conjunctiva pink Neck exam: ABSENT: carotid bruit Respiratory exam: PRESENT: clear to auscultation dion Cardiovascular exam: PRESENT: irregular rhythm Pulses: PRESENT: +1 pedal pulses bilateral GI/Abdominal exam: PRESENT: soft, tenderness Extremities exam: PRESENT: full ROM Musculoskeletal exam: PRESENT: ambulatory Results Laboratory Results: 11/27/16 06:32 11/27/16 06:32 11/27/16 11/27/16 06:32 06:32 WBC 9.3 RBC 2.60 L Hgb 8.1 L Hct 24.0 L MCV 92 MCH 31.3 MCHC 33.9 RDW 16.5 H Plt Count 138 L Sodium 138.0 Potassium 3.4 L Chloride 98 Carbon Dioxide 27 Anion Gap 13 BUN 89 H Creatinine 3.69 H Est GFR ( Amer) 14 L Est GFR (Non-Af Amer) 12 L Glucose 116 H Calcium 9.6 Impressions: Abdomen/Pelvis CT 11/25/16 07:56 IMPRESSION: Diverticulosis. No acute findings. Assessment & Plan - Diagnosis (1) GI bleed Qualifiers: GI bleed type/associated pathology: diverticulitis Qualified Code(s) : K57.93 - Diverticulitis of intestine, part unspecified, without perforation or abscess with bleeding Is this a current diagnosis for this admission?: YesPlan: We'll transfuse 2 units of packed red blood cells (2) Diverticulitis large intestine Is this a current diagnosis for this admission?: YesPlan: Continue clear liquids and antibiotics (3) Chronic kidney disease, stage IV (severe) Is this a current diagnosis for this admission?: YesPlan: Worsening kidney function will stopped the losartan and consult nephrology (4) Hypokalemia Is this a current diagnosis for this admission?: Yes (5) Valvular heart disease Is this a current diagnosis for this admission?: Yes (6) Coronary artery disease Qualifiers: Coronary Disease-Associated Artery/Lesion type: [place] artery [place] vs. transplanted heart: [place] heart Associated angina: without angina Qualified Code(s): I25.10 - Atherosclerotic heart disease of [place] coronary artery without angina pectoris Is this a current diagnosis for this admission?: YesPlan: Stable continue current treatment (7) Anemia of chronic disease Is this a current diagnosis for this admission?: Yes (8) Lower GI bleeding Is this a current diagnosis for this admission?: Yes (9) Diabetes mellitus type 2 Is this a current diagnosis for this admission?: YesPlan: We'll continue with insulin
[2016-11-27] MEDS: ISOSORBIDE MONONITRATE 30 MG TAB.ER.24H PO SCH (09:55)
[2016-11-27] MEDS: POTASSIUM CHLORIDE 10 MEQ TABLET.SA PO SCH ×2 (09:55→23:08)
[2016-11-27] MEDS: OMEGA-3 ACID ETHYL ESTERS 1 GM CAPSULE PO SCH ×2 (09:56→17:36)
[2016-11-27] MEDS: PAROXETINE HCL 20 MG TABLET PO SCH (09:56)
[2016-11-27] MEDS: ASPIRIN 81 MG TABLET, ENT COATED PO SCH (09:56)
[2016-11-27] MEDS: MAGNESIUM OXIDE 400 MG TABLET PO SCH ×3 (09:56→17:36)
[2016-11-27] MEDS: DILTIAZEM HCL 240 MG CAPSULE.CR PO SCH ×2 (09:56→23:06)
[2016-11-27] MEDS: FLUTICASONE NASAL SPRAY 50 MCG/SPRY 120 SPRAY/16 GM NASL SCH ×2 (09:57→23:09)
[2016-11-27] MEDS: ALLOPURINOL 100 MG TABLET PO SCH (09:57)
[2016-11-27] MEDS: HUM INSULIN NPH/REG INSULIN HM 100 UNIT/1 ML 3 ML SUBCUT SCH ×2 (10:01→17:48)
[2016-11-27] MEDS: ANASTROZOLE 1 MG TABLET PO SCH ×2 (10:04→23:07)
--- NOTE | 2016-11-27 10:13 | PROGRESS NOTE E ---
Progress Note NAME: JACINTA LUNSFORD : 1935 AGE: 81Y DATE: 11/27/2016 ROOM: 536 SUBJECTIVE: Patient still complaining of pain, primarily in the left lower quadrant. She is afebrile and her white count came down to 9.3. However, her hemoglobin dropped from 9.2 to 8.1. Her abdomen is soft with tenderness in the left lower quadrant on somewhat deep palpation. She did not have anymore bloody stool, but she claims that when she wipes after a bowel movement there is some blood on the tissue. IMPRESSION: ACUTE DIVERTICULITIS WITH LOWER GASTROINTESTINAL BLEED THAT APPEARS TO BE BEING CONTROLLED AT THIS TIME. PLAN: Continue IV antibiotics and bowel rest. She may need a blood transfusion if her hemoglobin continues to drop below 8. I took the liberty to order a type and screen on her. She will need a PICC line, but I was told that since her kidneys are not functioning well she may be eventually a dialysis candidate and data analyst etl developer feels that putting a PICC line in her at this time is not to her best interest. Patient also, however, refused an internal jugular vein catheter if needed. I may have to cross that barrier when the need comes. The family is also apprised of the possibility of being a DNR and they will get her living will. DICTATING PHYSICIAN: JEWELL WOODALL M.D. [id number] TOYY#: [id number] ID: [id number] JOB#: [id number] ACCT: [id number] cc: >
[2016-11-27] MEDS: CIPROFLOXACIN 400 MG/D5W RTU 400 MG/200 ML RTUPB IV SCH (11:07)
--- NOTE | 2016-11-27 11:36 | PDOC PROGRESS REPORT ---
Subjective Progress Note for:: 11/27/16 Subjective:: patient remains in the hospital Surgery has seen her and recommendations noted the differential does include possible ischemic colitis as well she did have a leukocytosis as well and her symptoms were predominant in her presentation she did have a elevated white cell count which has resolved H/H has dropped as well will need to continue antibiotics, complete 2 weeks , combo of botht IV and oral on discharge Physical Exam Vital Signs: Temp Pulse Resp BP Pulse Ox 98.3 F 60 18 131/44 H 98 11/27/16 10:23 11/27/16 10:23 11/27/16 10:23 11/27/16 10:23 11/27/16 10:23 Intake & Output 11/26/16 11/27/16 11/28/16 06:59 06:59 06:59 Intake Total 2495 0 Balance 2495 0 Weight 78.2 kg General appearance: PRESENT: mild distress Head exam: PRESENT: atraumatic, normocephalic Eye exam: PRESENT: EOMI, PERRLA. ABSENT: conjunctival injection, nystagmus, periorbital swelling, scleral icterus Mouth exam: PRESENT: neck supple Throat exam: ABSENT: tonsillogmegaly Neck exam: ABSENT: meningismus, tenderness, thyromegaly Respiratory exam: PRESENT: clear to auscultation dion, symmetrical. ABSENT: tachypnea, wheezes Cardiovascular exam: PRESENT: RRR, +S1, +S2 GI/Abdominal exam: PRESENT: soft, tenderness. ABSENT: Crenshaw's sign, rebound Extremities exam: ABSENT: joint swelling Musculoskeletal exam: PRESENT: full ROM Neurological exam: PRESENT: oriented to time, oriented to situation, reflexes normal Psychiatric exam: PRESENT: anxious, appropriate affect Skin exam: PRESENT: normal color. ABSENT: mottled, pallor, petechiae, urticaria , vesicles Results Laboratory Results: 11/27/16 06:32 11/27/16 06:32 11/27/16 11/27/16 06:32 06:32 WBC 9.3 RBC 2.60 L Hgb 8.1 L Hct 24.0 L MCV 92 MCH 31.3 MCHC 33.9 RDW 16.5 H Plt Count 138 L Sodium 138.0 Potassium 3.4 L Chloride 98 Carbon Dioxide 27 Anion Gap 13 BUN 89 H Creatinine 3.69 H Est GFR ( Amer) 14 L Est GFR (Non-Af Amer) 12 L Glucose 116 H Calcium 9.6 Impressions: Abdomen/Pelvis CT 11/25/16 07:56 IMPRESSION: Diverticulosis. No acute findings. Assessment & Plan - Diagnosis (1) Diverticulitis large intestine Is this a current diagnosis for this admission?: YesPlan: continue antibiotics however symptoms could be consistent with ischemic colitis as well (2) GI bleed Qualifiers: GI bleed type/associated pathology: diverticulitis Qualified Code(s) : K57.93 - Diverticulitis of intestine, part unspecified, without perforation or abscess with bleeding Is this a current diagnosis for this admission?: YesPlan: presumed diverticular, however since she does have risk factors for possible vascular disease as well she could have ischemic colitis as well the current treatment would be the same NPO antibiotics maintain hydration and prevent hypotension follow clinically - Time Time Spent with patient: 25-34 minutes
[2016-11-27] MEDS: INSULIN LISPRO 100 UNIT/ML 3 ML VIAL SUBCUT PRN ×2 (17:37→23:06)
[2016-11-27 19:58] LABS: ABSOLUTE EOSINOPHILS # (AUTO) 0.1 10^3/uL (0.0-0.6); ABSOLUTE LYMPHOCYTES (AUTO) 0.9 10^3/uL (0.5-4.7); ABSOLUTE MONOCYTES (AUTO) 0.6 10^3/uL (0.1-1.4); ABSOLUTE NEUT (AUTO) 7.1 10^3/uL (1.7-8.2); BASOPHILS % (AUTO) 0.2 % (0-2); EOSINOPHILS % (AUTO) 1.3 % (0-6); HEMATOCRIT 27.9 % (36.0-47.0); HEMOGLOBIN 9.3 g/dL (12.0-15.5); LYMPHOCYTES % (AUTO) 10.2 % (13-45); MEAN CORPUSCULAR HEMOGLOBIN 30.1 pg (27.0-33.4); MEAN CORPUSCULAR HGB CONC 33.2 g/dL (32.0-36.0); MEAN CORPUSCULAR VOLUME 91 fl (80-97); MONOCYTES % (AUTO) 6.7 % (3-13); RED BLOOD COUNT 3.09 10^6/uL (3.72-5.28); RED CELL DISTRIBUTION WIDTH 16.6 % (11.5-14.0); SEGMENTED NEUTROPHILS % (AUTO) 81.6 % (42-78); WHITE BLOOD COUNT 8.7 10^3/uL (4.0-10.5)
[2016-11-27] MEDS: MORPHINE SULFATE 10 MG/ML INJ IV PRN (23:21)
[2016-11-27] MEDS: GABAPENTIN 300 MG CAPSULE PO SCH (23:21)
[2016-11-28] MEDS: METRONIDAZOLE 500 MG/NS RTU 100 ML IV SCH ×3 (03:44→20:43)
--- NOTE | 2016-11-28 04:58 | CONSULTATION REPORT E ---
Consultation Report NAME: JACINTA LUNSFORD : 1935 AGE: 81Y DATE: 11/27/2016 536 A TO: KEN GIBSON M.D. FROM: YO CHASE M.D. Requesting Physician Note that the patient was briefly seen on 11/26/2016 and her cardiac status was stable in spite of her chronic complaints. Hence, a formal consult was done on 11/27/2016. I was with the patient from 1:00 p.m. to 1:40 p.m. Her old records were reviewed. HISTORY OF PRESENT ILLNESS: Patient is an 81-year-old female with a history of chronic non-cardiac chest pressure and also shortness of breath due to multiple reasons such as obesity, COPD, mitral regurgitation, diastolic dysfunction and chronic kidney disease. The patient states since last Friday, has been having cramping in her lower abdomen with bloody stools. She has had multiple episodes of this, then in between the pain would become dull and was constant. Today, she states the pain is better and her bowel movements are also less frequent. She has had a history of GI bleed in the past. She also complains of constant chest pressure, which she states increases with exertion. This has been a chronic complaint of the patient. She has had a past history of barium swallow, which showed some tertiary contractions and suggestive of esophageal dysmotility disorder. She has no history of coronary artery disease and LV ejection fraction was normal. She has some degree of orthopnea, but no PND. She has had a history of congestive heart failure in the past. At present, the patient does not seem to be in the heart failure. She denies any nausea or vomiting. She has had an extensive GI workup in the past and the last admission for GI bleed was in July of 2016, at which time she also had a rise in her troponin I, which will be discussed in the past medical history. There is no leg edema. There are no palpitations. There is no PND. There are no clear-cut anginal symptoms. PAST MEDICAL HISTORY: 1. She was admitted in August of 2014 with complete heart block with symptoms of dizziness and near syncope and had a temporary pacemaker placed and subsequently was transferred to [facility], where she had a permanent pacemaker placed. She has no history of coronary artery disease. She as mentioned earlier came in with a GI bleed in July 2016 and at that time, her troponin I was elevated. EKG was unhelpful due to paced rhythm. She subsequently when stabilized underwent a Cardiolite stress test, which showed no evidence of ischemia or RI. At that time, the echocardiogram showed normal LV fraction with moderate mitral regurgitation. 2. She has a history of hypertension. 3. Past history of CVA from which she has fully recovered. 4. History of GERD. 5. She has a history of chronic kidney disease, stage IV and follows with Dr. De Luna. 6. History of gout. 7. History of renal artery stenosis with the left renal artery replaced. She in July of 2016 admission had a duplex of her renal arteries, which showed no evidence of renal artery stenosis or restenosis on the films. 8. She has a history of sleep apnea, but I am not sure if she does not wear CPAP. There is no history of asthma or COPD. 9. Vgmopyih-yp-wydmnb mitral regurgitation. 10. History of depression. 11. History of left breast cancer, currently on medication for that. The patient for the breast cancer has not had radiation or chemotherapy or surgery and she states that it was not spread. 12. She had a full body nuclear scan, which shows negative for any malignancy. It was positive for mild degenerative arthritis. 13. As mentioned earlier, she had a past history of GI bleed secondary to colonic polyps, which were removed and also she has diverticulosis that was thought to be secondary to diverticular bleed also. She also has a past history of ulcers and GERD. PAST SURGICAL HISTORY: She had a right lobe of thyroid removed. She has a history of abdominal umbilicus hernia surgery. She has a past history of internal bleed surgically corrected. She has a left renal artery stent placement. She has a permanent pacemaker placement. There is no history of coronary artery disease. FAMILY HISTORY: Positive for diabetes mellitus, CAD and hypertension in her parents and siblings. ALLERGIES: SHE IS ALLERGIC TO CODEINE, PENICILLIN, AND HYDRALAZINE. HYDRALAZINE CAUSES CARDIAC ARREST. IV CONTRAST, ATORVASTATIN AND SULFA. SOCIAL HISTORY: The patient does not smoke. There is no history of EtOH abuse. There is no history of street drug or recreational drug abuse. CODE STATUS: The patient is a FULL CODE. SURROGATE HEALTHCARE DECISION MAKER: Her daughter is the surrogate healthcare decision maker. REVIEW OF SYSTEMS: CONSTITUTIONAL: She says that usually her temperature runs 96, but since Friday, her temperature was 98 and hence she thinks that she has a fever. There are no chills. She has generalized fatigue and weakness. HEAD: She has no headaches or head injury and no dizziness, but complains of generalized fatigue and weakness. EYES: No history of amblyopia, diplopia. No history of amaurosis fugax. EARS: The patient has slightly decreased hearing. There is no history of tinnitus. No vertigo. NOSE: No history of hay fever. No history of nosebleed. No history of nasal polyps. MOUTH: No history of altered taste sensation. No history of ulcers in the mouth. No bleeding from the gums. THROAT: No history of odynophagia, dysphagia. No history of recurrent sore throat. SKIN: There are no skin rashes or skin lesions. No pruritus. No yellowish discoloration of the skin. No skin cancer. NECK: No history of enlargement neck lymph nodes. No goiter. No painful swelling of the neck. LUNGS: She has no history of asthma or COPD, but her chest x-ray suggests COPD. There is a history of sleep apnea, but the patient does not wear CPAP. There is no history of pulmonary embolism. No history of pleuritic chest pain. The patient in 07/2016 when she was admitted with GI bleed and elevated troponin I, had chest wall pain, reproducible with pressing on the right side of the chest. There is no history of hemoptysis. No wheezing, cough or sputum production. CARDIAC: History of hypertension present, history of continuous pressure in the epigastric region and lower chest area, which she says increases with exertion. In the past, this has been resolved with GI cocktail as mentioned earlier. She has had an upper GI barium swallow, which showed that the patient could not swallow the barium tablet, but there was suggestion of disorganized peristalsis and some few tertiary contractions, suggestive of esophageal dysmotility disorder. She has a past history of non-cardiac chest pain. No history of coronary artery disease. History of elevated troponin I, but no definite history of RI or non-ST elevation RI. She has a past history of SVT and history of transient atrial fibrillation with no recurrence. She has a history of complete heart block, status post dual permanent pacemaker placement. She has not had any further episodes of syncope. RENAL: She has a history of chronic kidney disease, which is stage IV. In the past, GFR used to be 17, but in the admission of September 2016, the GFR had improved to 34. This admission, the GFR has reduced to 12, which is stage V CKD. Glucose was 116. GENITOURINARY: There are no symptoms of hematuria, pyuria, or dysuria. ENDOCRINE: History of diabetes mellitus type 2 with chronic kidney disease, at present stage V. No history of polydipsia or polyuria. Past history of hyperglycemia, none recently. No history of heat or cold intolerance. No history of hirsutism. No history of excessive sweating. NEUROLOGICAL: She has a past history of CVA, but no focal deficit, but has fully recovered from it. There is no history of recurrence of the TIA or CVA. The patient at one time says she has a history of sleep apnea and other times say she has no history of sleep apnea. There is no history of seizures or migraines. MUSCULOSKELETAL: She has a history of arthritis, but no history of collagen vascular disease. GASTROINTESTINAL: The patient has history of GERD, most likely has esophageal dysmotility disorder. There is no history of jaundice. No history of fatty food intolerance. Past history of diverticulitis and diverticulosis and colonic polyps, which caused rectal bleed. She has a history of hemorrhoids, history of hiatal hernia and irritable bowel syndrome. Past history of peptic ulcer disease and history of GI bleed. The patient also at times from [id number]-[id number] has dysphagia, but no odynophagia. No dysphagia recently. In the past, epigastric pain helped with metoclopramide. Metabolic history of hyperlipidemia present, history of gout present. She has history of [id number]-[id number] obesity. HEMATOLOGICAL: The patient has a history of anemia of chronic disease. No history of bleeding diathesis. No history of clotting disorders. 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 She has stenosis of left external carotid artery of 50% and severe stenosis in the left internal carotid artery with the range greater than 70%. There is no history of calf or buttock claudication. No history of DVT. History of stenting to the renal artery in the past. PSYCHIATRY: History of depression present. The patient appears to be severely depressed. She also has a history of anxiety. There is no history of suicidal ideation or homicidal ideations. MEDICATIONS: Include: 1. Crestor 10 mg p.o. daily. 2. Allopurinol 100 mg p.o. daily. 3. She is on Arimidex 1 mg p.o. at bedtime for breast cancer. 4. Aspirin 81 mg p.o. daily. 5. She is on Coreg 6.25 mg p.o. q. 12 hours. 6. She is on ciprofloxacin 400 mg IV q. 8 hours. 7. She is on hypoglycemic precautions with 40% glucose, carbohydrate 15 g p.o. p.r.n. hypoglycemia. 8. She is on dextrose 50% 25 g IV and 12.5 mg IV p.r.n. hypoglycemia. 9. She is on Cardizem 240 mg p.o. q. 12 hours. 10. She is on Flonase 1 spray nasally q. 12 hours. 11. She is on Neurontin 300 mg p.o. at bedtime for chronic leg pain. 12. She is on Glucagon 1 mg IM p.r.n. hypoglycemia. 13. She is on Humulin insulin/regular insulin 75 units subcutaneously b.i.d. 14. She is on hydrocodone/acetaminophen 1 tablet p.o. q.i.d. p.r.n. 15. She is on normal saline at 30 mL per hour. She also has been ordered blood transfusion. 16. She is on Accu-Cheks at breakfast t.i.d. and is just with sliding scale insulin coverage. 17. She is on isosorbide mononitrate 90 mg p.o. daily. This is more for her esophageal problem rather than for her having coronary artery disease. 18. Lansoprazol 30 mg p.o. b.i.d. 19. She is on magnesium oxide 400 mg p.o. t.i.d. 20. She is on metronidazole 500 mg IV q. 6 hours. 21. She is on morphine sulfate 2 mg IV q. 4 hours p.r.n. 22. She is on nitroglycerin 1 tablet sublingual q. 5 minutes p.r.n. 23. She is on fish oil 2 g p.o. b.i.d. 24. She is on Zofran 4 mg IV q. 4 hours p.r.n. 25. She is on Paxil 20 mg p.o. q.a.m. 26. She is on KCl 20 mEq p.o. q. 12 hours. PHYSICAL EXAMINATION: GENERAL: On examination, the patient appears to be depressed and anxious. She is wukh-ot-gxxynuiaoo obese, but well-groomed. VITAL SIGNS: She is afebrile with a temperature of 98.4 degrees Fahrenheit, pulse is 60 beats per minute, blood pressure 134/65, respirations 17 per minute, and O2 sats are 97% on 2 liters nasal cannula. HEAD: Atraumatic, normocephalic. EYES: Pupils are equal, round, regular, and reactive to light and accommodation. Extraocular movements are normal. There is conjunctival pallor present. There is no sclerae icterus. EARS: Tympanic membranes are intact. External auditory canals are clear. NOSE: There is no deviated nasal septum. MOUTH: There are no ulcers in the mouth. There is no bleeding from the gums. THROAT: There is no redness of the oropharynx. There are no exudates in the throat. SKIN: There are no skin rashes. No petechia or ecchymosis. There are no skin lesions. NECK: Supple. There is no JVD. There are bilateral carotid bruits present. Carotids are equal. There is no lymphadenopathy. There is no goiter. Trachea is central. LUNGS: Clear to auscultation and percussion. HEART: S1 and S2 are heard. There is no S3 gallop. There is no S4 gallop. There is murmur of mild aortic stenosis present with preserved A2. There is also murmur of mitral regurgitation present with radiation from the apex to the left axilla. There is no rub. S1 is of normal intensity. There is no diastolic murmur. ABDOMEN: Soft and nontender. There is no hepatosplenomegaly. Bowel sounds are well heard. EXTREMITIES: Femorals are diminished. There are no femoral bruits. Leg pulses are diminished. There is no pedal edema. There is no DVT or cellulitis. There is no calf tenderness. CENTRAL NERVOUS SYSTEM: The patient is conscious, awake, alert, and oriented x3 with no focal deficits. PSYCHIATRIC: The patient is anxious and depressed, but she is not agitated. The patient's intake and output is not accurate. DIAGNOSTIC TEST RESULTS: The patient's sodium is 138, potassium is 3.4, chloride is 98, and CO2 is 27. The patient's BUN is 89, creatinine is 3.69, and GFR is reduced to 12, which is chronic kidney disease, stage V. Glucose is 116, calcium is 9.6. The patient's Pro-Time is 14.5, INR is 1.10, and PTT [place] 34.3[place] [address], hemoglobin is 8.1, hematocrit is 24 and her platelet count is 138,000. The patient's stool occult blood is positive. Stool for white cells are few. The patient's EKG done on the 11/25 shows ventricular paced rhythm. There is atrial sense and ventricular pacing. The patient has abdomen and pelvis CT without any oral IV contrast. Liver, spleen, adrenal evaluation is limited by lack of IV contrast. No identified significant masses. Pancreas, no masses, no meri-pancreatic inflammatory changes. Gallbladder surgically absent. Right kidney and ureter, no suspicious masses, no hydronephrosis or hydroureter. The left kidney, no suspicious masses, no hydronephrosis or hydroureter. Ureter and retroperitoneum, no aneurysm, no retroperitoneal masses or adenopathy. Bowel and peritoneal cavity, sigmoid diverticulosis. No obvious masses or inflammatory changes. No free fluid. Appendix is normal. Pelvis, bladder and abdominal wall, no abdominal masses, no free fluid, bladder normal. No other significant findings. The patient's EKG shows baseline artifact, most likely sinus rhythm with paced ventricular beats. IMPRESSION: 1. THE PATIENT'S ABDOMINAL PAIN IS WITH RECTAL BLEED, MOST LIKELY DIVERTICULITIS AND DIVERTICULAR BLEED. 2. CHEST PRESSURE SECONDARY TO GERD, GASTRITIS, HIATAL HERNIA. 3. [id number] MITRAL REGURGITATION BY ECHOCARDIOGRAM OF 2016. The patient is not in failure. Continue current medications. 4. ACUTE ON CHRONIC RENAL FAILURE WITH GFR NOW REDUCED TO STAGE V. BASELINE IS STAGE III. The plan is to get a nephrology consult. 5. PAST HISTORY OF SYMPTOMATIC BRADYCARDIA, STATUS POST PERMANENT PACEMAKER PLACEMENT. 6. HYPERTENSION, WELL CONTROLLED AT PRESENT. Continue current medications including Coreg. 7. HYPOKALEMIA. The plan is to replace the potassium. She is on p.o. potassium. 8. DIABETES MELLITUS TYPE 2, INSULIN REQUIRING AND CHRONIC KIDNEY COMPLICATIONS. At present, chronic kidney disease, stage IV due to acute on chronic renal failure. 9. PAST HISTORY OF OLD CEREBROVASCULAR ACCIDENT WITH NO RECURRENCE, BUT FULLY RECOVERED. We will watch the patient for any deterioration of her neurological status. 10. GASTROESOPHAGEAL REFLUX DISEASE AND HIATAL HERNIA. 11. CHRONIC KIDNEY DISEASE, PRESENT ACUTE ON CHRONIC RENAL FAILURE, AT PRESENT STAGE V. Earlier was stage III. 12. MOST LIKELY HAS ESOPHAGEAL DYSMOTILITY DISORDER WITH INTERMITTENT DYSPHAGIA. 13. HISTORY OF RENAL ARTERY STENOSIS, STATUS POST LEFT RENAL ARTERY STENT. 14. HISTORY OF GOUT. 15. HISTORY OF MILD AORTIC STENOSIS. 16. HISTORY OF RIGHT BREAST CANCER. Treat medically. 17. ANEMIA, THIS IS SECONDARY TO GI LOSS DUE TO RECTAL BLEEDING ON A PATIENT WITH CHRONIC ANEMIA DUE TO CHRONIC KIDNEY DISEASE. RECOMMENDATION: Continue Coreg, but we will hold the aspirin for now until the rectal bleed resolves. Continue isosorbide mononitrate. We will increase the dose if needed. This is more for esophageal problems rather some coronary artery disease. Note that in July, she had a left ventricular ejection fraction of 65%. Left ventricular wall motion was normal. The left atrial size was normal. There was no evidence of mitral valve prolapse. There was mild mitral stenosis. At that time, the mitral regurgitation was only moderate. Earlier, it used to [id number]. There was mild aortic stenosis with peak gradient of 27. There was mild aortic regurgitation. There was mild amount of tricuspid regurgitation. Right ventricular systolic pressure was 40 to 45 mmHg. There was no pericardial effusion. There was pacemaker lead in the right ventricle. There was mild concentric left ventricular hypertrophy. Continue GI prophylactic medication. We would strongly recommend a GI consult and also we would recommend a nephrology consult. Continue antibiotics. DISPOSITION: The patient is a FULL CODE. Her daughter is the surrogate healthcare decision maker. The patient's medications were reviewed and discussed with the attending physician. The patient was seen for 40 minutes and more than 50% of the time was spent in direct patient care. Also, we would strongly recommend getting a GI and nephrology consult. Discussed with Dr. Chase, the attending of the case and also the nurse, taking care of the patient. I have also discussed with the nurses that we needed an accurate intake and output. If the patient is voiding herself, at least she should report it to the nurses or if there is problem of incontinence, then the patient should have a Ramon catheter for more accurate output. I do not feel the necessity for an echo at present. We will see what the recommendation of glue jointer feeder is/are. Thanking you. DICTATING PHYSICIAN: KEN GIBSON M.D. [id number] PHY#: [id number] ID: [id number] JOB#: [id number] ACCT: [id number] cc:KEN GIBSON M.D. >
[2016-11-28] MEDS: CIPROFLOXACIN 400 MG/D5W RTU 400 MG/200 ML RTUPB IV SCH ×2 (04:59→21:49)
[2016-11-28] MEDS: LANSOPRAZOLE 30 MG TAB.RAP.DR PO SCH ×2 (07:07→17:15)
[2016-11-28 07:15] LABS: ABSOLUTE EOSINOPHILS # (AUTO) 0.2 10^3/uL (0.0-0.6); ABSOLUTE MONOCYTES (AUTO) 0.5 10^3/uL (0.1-1.4); ABSOLUTE NEUT (AUTO) 5.4 10^3/uL (1.7-8.2); BASOPHILS % (AUTO) 0.6 % (0-2); EOSINOPHILS % (AUTO) 2.2 % (0-6); HEMATOCRIT 27.1 % (36.0-47.0); HEMOGLOBIN 9.2 g/dL (12.0-15.5); HGB HCT DIFFERENCE 0.5; LYMPHOCYTES % (AUTO) 14.2 % (13-45); MEAN CORPUSCULAR HEMOGLOBIN 30.8 pg (27.0-33.4); MEAN CORPUSCULAR HGB CONC 33.8 g/dL (32.0-36.0); MEAN CORPUSCULAR VOLUME 91 fl (80-97); MONOCYTES % (AUTO) 7.2 % (3-13); RED BLOOD COUNT 2.98 10^6/uL (3.72-5.28); SEGMENTED NEUTROPHILS % (AUTO) 75.8 % (42-78); WHITE BLOOD COUNT 7.1 10^3/uL (4.0-10.5)
[2016-11-28 07:36] LABS: ALANINE AMINOTRANSFERASE 26 U/L (9-52); ALBUMIN 3.2 g/dL (3.5-5.0); ALKALINE PHOSPHATASE 48 U/L (38-126); ANION GAP 11 (5-19); ASPARTATE AMINO TRANSFERASE 22 U/L (14-36); BILIRUBIN,DIRECT 0.2 mg/dL (0.0-0.4); BILIRUBIN,TOTAL 0.4 mg/dL (0.2-1.3); BLOOD UREA NITROGEN 85 mg/dL (7-20); CALCIUM 9.2 mg/dL (8.4-10.2); CARBON DIOXIDE 25 mmol/L (22-30); CHLORIDE 100 mmol/L (98-107); CREATININE RESULT 3.67 mg/dL (0.52-1.25); GLUCOSE 156 mg/dL (75-110); POTASSIUM 4.1 mmol/L (3.6-5.0); SODIUM 135.6 mmol/L (137-145); TOTAL PROTEIN 5.2 g/dL (6.3-8.2)
--- NOTE | 2016-11-28 08:01 | PDOC PROGRESS REPORT ---
Subjective Progress Note for:: 11/28/16 Subjective:: The patient states to feel better. Her abdominal pain has improved. She is having difficulty urinating because we have held her diuretics. She denies any further rectal bleed. Physical Exam Vital Signs: Temp Pulse Resp BP Pulse Ox 98.2 F 60 20 122/49 L 98 11/28/16 00:02 11/28/16 02:00 11/28/16 00:02 11/28/16 00:02 11/28/16 00:02 Intake & Output 11/27/16 11/28/16 11/29/16 06:59 06:59 06:59 Intake Total 2495 1880 Balance 2495 1880 Weight 78.2 kg 79.3 kg General appearance: PRESENT: no acute distress Head exam: PRESENT: atraumatic Eye exam: PRESENT: conjunctiva pink Neck exam: ABSENT: carotid bruit Respiratory exam: PRESENT: clear to auscultation dion Cardiovascular exam: PRESENT: irregular rhythm Pulses: PRESENT: +1 pedal pulses bilateral GI/Abdominal exam: PRESENT: tenderness Extremities exam: PRESENT: full ROM Results Laboratory Results: 11/28/16 06:35 11/28/16 06:35 11/27/16 11/28/16 11/28/16 19:50 06:35 06:35 WBC 8.7 7.1 RBC 3.09 L 2.98 L Hgb 9.3 L 9.2 L Hct 27.9 L 27.1 L MCV 91 91 MCH 30.1 30.8 MCHC 33.2 33.8 RDW 16.6 H 17.0 H Plt Count 127 L 129 L Seg Neutrophils % 81.6 H 75.8 Lymphocytes % 10.2 L 14.2 Monocytes % 6.7 7.2 Eosinophils % 1.3 2.2 Basophils % 0.2 0.6 Absolute Neutrophils 7.1 5.4 Absolute Lymphocytes 0.9 1.0 Absolute Monocytes 0.6 0.5 Absolute Eosinophils 0.1 0.2 Absolute Basophils 0.0 0.0 Sodium 135.6 L Potassium 4.1 Chloride 100 Carbon Dioxide 25 Anion Gap 11 BUN 85 H Creatinine 3.67 H Est GFR ( Amer) 14 L Est GFR (Non-Af Amer) 12 L Glucose 156 H Calcium 9.2 Total Bilirubin 0.4 AST 22 ALT 26 Alkaline Phosphatase 48 Total Protein 5.2 L Albumin 3.2 L Impressions: Abdomen/Pelvis CT 11/25/16 07:56 IMPRESSION: Diverticulosis. No acute findings. Assessment & Plan - Diagnosis (1) GI bleed Qualifiers: GI bleed type/associated pathology: diverticulitis Qualified Code(s) : K57.93 - Diverticulitis of intestine, part unspecified, without perforation or abscess with bleeding Is this a current diagnosis for this admission?: YesPlan: We'll transfuse 2 units of packed red blood cells (2) Diverticulitis large intestine Is this a current diagnosis for this admission?: YesPlan: Continue clear liquids and antibiotics (3) Chronic kidney disease, stage IV (severe) Is this a current diagnosis for this admission?: YesPlan: We'll stop the IV fluids and restart the diuretics (4) Hypokalemia Is this a current diagnosis for this admission?: Yes (5) Valvular heart disease Is this a current diagnosis for this admission?: Yes (6) Coronary artery disease Qualifiers: Coronary Disease-Associated Artery/Lesion type: [place] artery [place] vs. transplanted heart: [place] heart Associated angina: without angina Qualified Code(s): I25.10 - Atherosclerotic heart disease of [place] coronary artery without angina pectoris Is this a current diagnosis for this admission?: YesPlan: Stable continue current treatment (7) Anemia of chronic disease Is this a current diagnosis for this admission?: YesPlan: The hemoglobin and hematocrit have improved after the transfusion (8) Lower GI bleeding Is this a current diagnosis for this admission?: Yes (9) Diabetes mellitus type 2 Is this a current diagnosis for this admission?: Yes
[2016-11-28] MEDS: TORSEMIDE 20 MG TABLET PO SCH ×2 (08:47→17:15)
[2016-11-28] MEDS: METOLAZONE 2.5 MG TABLET PO SCH (08:49)
[2016-11-28] MEDS ORDERED: NORMAL SALINE 1000 ML 1,000 ML IV PRN (10:59)
[2016-11-28] MEDS ORDERED: NITROGLYCERIN 2% OINTMENT 1 GM PACKET ONE ×2 (10:59→11:34)
[2016-11-28] MEDS ORDERED: FUROSEMIDE INJ/PF 40 MG/4 ML SDV IV ONE ×2 (11:00→12:30)
--- NOTE | 2016-11-28 11:09 | Progress Note ---
Provider Note Provider Note: RAPID RESPONSE: Called for CP, SOB. H/o CAD, valvular heart disease. Patient somnolent, increased resp rate, accessory muscle use, crackles over anterior lung briggs. EKG with paced rhythm A/p: 1. Dyspnea/CP- clinically in acute CHF. IVF decreased to 60/hr. IV Lasix, NTP. Start BiPAP. Check CXR, porBNP, cardiac enzymes, ABG. Notify PCP to assume care.
[2016-11-28] MEDS: NITROGLYCERIN 0.4 MG/TAB 25 TAB/BOTTLE SL PRN ×3 (11:35→11:45)
[2016-11-28 11:44] LABS: HEMATOCRIT 32.4 % (36.0-47.0); HEMOGLOBIN 10.6 g/dL (12.0-15.5); HGB HCT DIFFERENCE -0.6; MEAN CORPUSCULAR HEMOGLOBIN 30.3 pg (27.0-33.4); MEAN CORPUSCULAR HGB CONC 32.7 g/dL (32.0-36.0); MEAN CORPUSCULAR VOLUME 93 fl (80-97); RED CELL DISTRIBUTION WIDTH 17.3 % (11.5-14.0)
[2016-11-28] MEDS: MORPHINE SULFATE 10 MG/ML INJ IV PRN ×2 (11:45→17:08)
[2016-11-28 11:51] LABS: ARTERIAL BLOOD BASE EXCESS -7.5 mmol/L; ARTERIAL BLOOD O2 SATURATION 95.4 % (94-98)
[2016-11-28 11:55] LABS: CREATINE KINASE MB 0.51 ng/mL (<4.55); TROPONIN I 0.077 ng/mL
[2016-11-28] MEDS: NITROGLYCERIN 2% OINTMENT 1 GM PACKET TP SCH ×3 (12:00→17:54)
--- NOTE | 2016-11-28 12:11 | PROGRESS NOTE E ---
Progress Note NAME: JACINTA LUNSFORD : 1935 AGE: 81Y DATE: 11/28/2016 ROOM: 536 SUBJECTIVE: Her abdomen remains soft and less tender in the left lower quadrant. However, she feels like she has some difficulty breathing and I believe she was given p.o. diuretics by Medicine. PLAN: Continue with IV antibiotics and possibly start the clear liquids if her discomfort and white count remains better. DICTATING PHYSICIAN: JEWELL WOODALL M.D. [id number] PHY#: [id number] ID: [id number] JOB#: [id number] ACCT: [id number] cc: >
[2016-11-28] MEDS: ASPIRIN 81 MG TABLET, ENT COATED PO SCH (12:17)
[2016-11-28] MEDS: OMEGA-3 ACID ETHYL ESTERS 1 GM CAPSULE PO SCH ×2 (12:17→17:15)
[2016-11-28] MEDS: POTASSIUM CHLORIDE 10 MEQ TABLET.SA PO SCH ×2 (12:17→21:48)
[2016-11-28] MEDS: MAGNESIUM OXIDE 400 MG TABLET PO SCH ×3 (12:17→17:15)
[2016-11-28] MEDS: HUM INSULIN NPH/REG INSULIN HM 100 UNIT/1 ML 3 ML SUBCUT SCH ×2 (12:17→17:17)
[2016-11-28] MEDS: DILTIAZEM HCL 240 MG CAPSULE.CR PO SCH ×2 (12:17→21:48)
[2016-11-28] MEDS: PAROXETINE HCL 20 MG TABLET PO SCH (12:17)
[2016-11-28] MEDS: METRONIDAZOLE 500 MG TABLET PO SCH ×2 (12:17→17:15)
[2016-11-28] MEDS: ISOSORBIDE MONONITRATE 30 MG TAB.ER.24H PO SCH (12:17)
[2016-11-28] MEDS: ALLOPURINOL 100 MG TABLET PO SCH (12:17)
[2016-11-28] MEDS: FLUTICASONE NASAL SPRAY 50 MCG/SPRY 120 SPRAY/16 GM NASL SCH ×2 (12:17→21:50)
[2016-11-28 12:24] LABS: ALANINE AMINOTRANSFERASE 36 U/L (9-52); ALBUMIN 3.8 g/dL (3.5-5.0); ALKALINE PHOSPHATASE 64 U/L (38-126); ANION GAP 16 (5-19); ASPARTATE AMINO TRANSFERASE 26 U/L (14-36); BILIRUBIN,DIRECT 0.4 mg/dL (0.0-0.4); BILIRUBIN,TOTAL 0.6 mg/dL (0.2-1.3); BLOOD UREA NITROGEN 83 mg/dL (7-20); CALCIUM 9.4 mg/dL (8.4-10.2); CARBON DIOXIDE 23 mmol/L (22-30); CHLORIDE 98 mmol/L (98-107); CREATININE RESULT 3.79 mg/dL (0.52-1.25); GLUCOSE 215 mg/dL (75-110); POTASSIUM 4.3 mmol/L (3.6-5.0); SODIUM 136.6 mmol/L (137-145); TOTAL PROTEIN 6.1 g/dL (6.3-8.2)
[2016-11-28] MEDS: NORMAL SALINE 250 ML with FUROSEMIDE 250 MG IV PRN ×2 (13:05)
--- NOTE | 2016-11-28 13:44 | EKG REPORT ---
SEVERITY:- ABNORMAL ECG - A-V DUAL-PACED COMPLEXES W/ SOME INHIBITION : Confirmed by: Mayo Stokes MD 28-Nov-2016 13:43:23
--- NOTE | 2016-11-28 17:20 | PDOC PROGRESS REPORT ---
Subjective Progress Note for:: 11/28/16 Subjective:: The patient is in the ICU. She has been placed on BiPAP by the rapid response team. She is doing much better. Discussed with the family about the fluid overload and the IV fluids and blood transfusion as a possible cause of fluid overload. Discussed also the possibility that the diuretics might not work and we might need to do a temporary dialysis. They do understand. We will discussed with her materials planning analyst any further recommendations. Cardiology evaluated the patient earlier. Physical Exam Vital Signs: Temp Pulse Resp BP Pulse Ox 98.1 F 69 20 148/55 H 99 11/28/16 16:00 11/28/16 16:00 11/28/16 16:00 11/28/16 16:00 11/28/16 16:00 Intake & Output 11/27/16 11/28/16 11/29/16 06:59 06:59 06:59 Intake Total 2495 1880 Output Total 400 Balance 2495 1880 -400 Weight 78.2 kg 79.3 kg Results Laboratory Results: 11/28/16 11:15 11/28/16 11:15 11/27/16 11/28/16 11/28/16 19:50 06:35 06:35 WBC 8.7 7.1 RBC 3.09 L 2.98 L Hgb 9.3 L 9.2 L Hct 27.9 L 27.1 L MCV 91 91 MCH 30.1 30.8 MCHC 33.2 33.8 RDW 16.6 H 17.0 H Plt Count 127 L 129 L Seg Neutrophils % 81.6 H 75.8 Lymphocytes % 10.2 L 14.2 Monocytes % 6.7 7.2 Eosinophils % 1.3 2.2 Basophils % 0.2 0.6 Absolute Neutrophils 7.1 5.4 Absolute Lymphocytes 0.9 1.0 Absolute Monocytes 0.6 0.5 Absolute Eosinophils 0.1 0.2 Absolute Basophils 0.0 0.0 Carbonic Acid HCO3/H2CO3 Ratio ABG pH ABG pCO2 ABG pO2 ABG HCO3 ABG O2 Saturation ABG Base Excess FiO2 Sodium 135.6 L Potassium 4.1 Chloride 100 Carbon Dioxide 25 Anion Gap 11 BUN 85 H Creatinine 3.67 H Est GFR ( Amer) 14 L Est GFR (Non-Af Amer) 12 L Glucose 156 H Calcium 9.2 Total Bilirubin 0.4 AST 22 ALT 26 Alkaline Phosphatase 48 Total Protein 5.2 L Albumin 3.2 L 11/28/16 11/28/16 11/28/16 11:15 11:15 11:40 WBC 12.0 H RBC 3.50 L Hgb 10.6 L Hct 32.4 L MCV 93 MCH 30.3 MCHC 32.7 RDW 17.3 H Plt Count 184 Seg Neutrophils % Lymphocytes % Monocytes % Eosinophils % Basophils % Absolute Neutrophils Absolute Lymphocytes Absolute Monocytes Absolute Eosinophils Absolute Basophils Carbonic Acid 1.55 H HCO3/H2CO3 Ratio 13:1 ABG pH 7.21 L ABG pCO2 51.6 H ABG pO2 92.3 ABG HCO3 20.3 ABG O2 Saturation 95.4 ABG Base Excess -7.5 FiO2 50% Sodium 136.6 L Potassium 4.3 Chloride 98 Carbon Dioxide 23 Anion Gap 16 BUN 83 H Creatinine 3.79 H Est GFR ( Amer) 14 L Est GFR (Non-Af Amer) 11 L Glucose 215 H Calcium 9.4 Total Bilirubin 0.6 AST 26 ALT 36 Alkaline Phosphatase 64 Total Protein 6.1 L Albumin 3.8 11/28/16 11/28/16 11/28/16 11:15 11:15 11:15 Creatine Kinase < 20 L CK-MB (CK-2) 0.51 Troponin I 0.077 NT-Pro-B Natriuret Pep 1730 H Impressions: Abdomen/Pelvis CT 11/25/16 07:56 IMPRESSION: Diverticulosis. No acute findings. Chest X-Ray 11/28/16 00:00 IMPRESSION: BASILAR INFILTRATES CONCERNING FOR PNEUMONIA, PARTICULAR ON THE RIGHT SIDE. ASYMMETRIC PULMONARY EDEMA MAY BE PRESENT. Assessment & Plan - Diagnosis (1) GI bleed Qualifiers: GI bleed type/associated pathology: diverticulitis Qualified Code(s) : K57.93 - Diverticulitis of intestine, part unspecified, without perforation or abscess with bleeding Is this a current diagnosis for this admission?: Yes (2) Diverticulitis large intestine Is this a current diagnosis for this admission?: Yes (3) Chronic kidney disease, stage IV (severe) Is this a current diagnosis for this admission?: Yes (4) Hypokalemia Is this a current diagnosis for this admission?: Yes (5) Valvular heart disease Is this a current diagnosis for this admission?: Yes (6) Coronary artery disease Qualifiers: Coronary Disease-Associated Artery/Lesion type: [place] artery [place] vs. transplanted heart: [place] heart Associated angina: without angina Qualified Code(s): I25.10 - Atherosclerotic heart disease of [place] coronary artery without angina pectoris Is this a current diagnosis for this admission?: Yes (7) Anemia of chronic disease Is this a current diagnosis for this admission?: Yes (8) Lower GI bleeding Is this a current diagnosis for this admission?: Yes (9) Diabetes mellitus type 2 Is this a current diagnosis for this admission?: Yes
[2016-11-28 17:47] LABS: CREATINE KINASE MB 1.01 ng/mL (<4.55)
--- NOTE | 2016-11-28 17:50 | PDOC PROGRESS REPORT ---
Subjective Progress Note for:: 11/28/16 Subjective:: patient has been transferred to the ICU for respiratory distress Unclear due to fluid overload leading to pulmonary edema along with possible blood transfusions along with the fact that she has chronic kidney disease. The other question is whether or not she truly had ischemic colitis. Certainly her presentation with significant abdominal pain and bleeding seems to be consistent with that. Seems to be doing much better Nephrology seeing the patient. She had a CT scan which did show some diverticulosis but without any evidence of diverticulitis. Pain seems to have improved. Physical Exam Vital Signs: Temp Pulse Resp BP Pulse Ox 98.1 F 69 23 H 148/55 H 100 11/28/16 16:00 11/28/16 16:00 11/28/16 16:02 11/28/16 16:00 11/28/16 16:02 Intake & Output 11/27/16 11/28/16 11/29/16 06:59 06:59 06:59 Intake Total 2495 1880 Output Total 400 Balance 2495 1880 -400 Weight 78.2 kg 79.3 kg Head exam: PRESENT: atraumatic, normocephalic Eye exam: PRESENT: EOMI, PERRLA. ABSENT: conjunctival injection, nystagmus, periorbital swelling, scleral icterus Mouth exam: PRESENT: neck supple Throat exam: ABSENT: tonsillar exudate, tonsillogmegaly Neck exam: ABSENT: meningismus, tenderness, tracheal deviation Respiratory exam: PRESENT: crackles, symmetrical, tachypnea Cardiovascular exam: PRESENT: RRR, +S1, +S2 GI/Abdominal exam: PRESENT: diminished bowel sounds, soft, tenderness. ABSENT: Crenshaw's sign, rebound, rigid Neurological exam: PRESENT: CN II-XII grossly intact Skin exam: PRESENT: normal color. ABSENT: mottled, pallor, petechiae, urticaria , warm Results Laboratory Results: 11/28/16 11:15 11/28/16 11:15 11/27/16 11/28/16 11/28/16 19:50 06:35 06:35 WBC 8.7 7.1 RBC 3.09 L 2.98 L Hgb 9.3 L 9.2 L Hct 27.9 L 27.1 L MCV 91 91 MCH 30.1 30.8 MCHC 33.2 33.8 RDW 16.6 H 17.0 H Plt Count 127 L 129 L Seg Neutrophils % 81.6 H 75.8 Lymphocytes % 10.2 L 14.2 Monocytes % 6.7 7.2 Eosinophils % 1.3 2.2 Basophils % 0.2 0.6 Absolute Neutrophils 7.1 5.4 Absolute Lymphocytes 0.9 1.0 Absolute Monocytes 0.6 0.5 Absolute Eosinophils 0.1 0.2 Absolute Basophils 0.0 0.0 Carbonic Acid HCO3/H2CO3 Ratio ABG pH ABG pCO2 ABG pO2 ABG HCO3 ABG O2 Saturation ABG Base Excess FiO2 Sodium 135.6 L Potassium 4.1 Chloride 100 Carbon Dioxide 25 Anion Gap 11 BUN 85 H Creatinine 3.67 H Est GFR ( Amer) 14 L Est GFR (Non-Af Amer) 12 L Glucose 156 H Calcium 9.2 Total Bilirubin 0.4 AST 22 ALT 26 Alkaline Phosphatase 48 Total Protein 5.2 L Albumin 3.2 L 11/28/16 11/28/16 11/28/16 11:15 11:15 11:40 WBC 12.0 H RBC 3.50 L Hgb 10.6 L Hct 32.4 L MCV 93 MCH 30.3 MCHC 32.7 RDW 17.3 H Plt Count 184 Seg Neutrophils % Lymphocytes % Monocytes % Eosinophils % Basophils % Absolute Neutrophils Absolute Lymphocytes Absolute Monocytes Absolute Eosinophils Absolute Basophils Carbonic Acid 1.55 H HCO3/H2CO3 Ratio 13:1 ABG pH 7.21 L ABG pCO2 51.6 H ABG pO2 92.3 ABG HCO3 20.3 ABG O2 Saturation 95.4 ABG Base Excess -7.5 FiO2 50% Sodium 136.6 L Potassium 4.3 Chloride 98 Carbon Dioxide 23 Anion Gap 16 BUN 83 H Creatinine 3.79 H Est GFR ( Amer) 14 L Est GFR (Non-Af Amer) 11 L Glucose 215 H Calcium 9.4 Total Bilirubin 0.6 AST 26 ALT 36 Alkaline Phosphatase 64 Total Protein 6.1 L Albumin 3.8 11/28/16 11/28/16 11/28/16 11:15 11:15 11:15 Creatine Kinase < 20 L CK-MB (CK-2) 0.51 Troponin I 0.077 NT-Pro-B Natriuret Pep 1730 H 11/28/16 17:12 Creatine Kinase 23 L CK-MB (CK-2) Troponin I NT-Pro-B Natriuret Pep Impressions: Abdomen/Pelvis CT 11/25/16 07:56 IMPRESSION: Diverticulosis. No acute findings. Chest X-Ray 11/28/16 00:00 IMPRESSION: BASILAR INFILTRATES CONCERNING FOR PNEUMONIA, PARTICULAR ON THE RIGHT SIDE. ASYMMETRIC PULMONARY EDEMA MAY BE PRESENT. Assessment & Plan - Diagnosis (1) Diverticulitis large intestine Is this a current diagnosis for this admission?: YesPlan: continue with antibiotics for now her symptoms are also suspicious for ishcemic colitis as well (2) GI bleed Qualifiers: GI bleed type/associated pathology: diverticulitis Qualified Code(s) : K57.93 - Diverticulitis of intestine, part unspecified, without perforation or abscess with bleeding Is this a current diagnosis for this admission?: YesPlan: s/p blood tranfusion ? fluid overload with chronic kidney disease precipitating SOB requiring transfer to ICU not a candidate for a scope for now - Time Time Spent with patient: 25-34 minutes
[2016-11-28] MEDS: INSULIN LISPRO 100 UNIT/ML 3 ML VIAL SUBCUT PRN (17:55)
[2016-11-28 18:10] LABS: TROPONIN I 0.284 ng/mL
--- NOTE | 2016-11-28 19:35 | PDOC CONSULTATION ---
Consultation Consult Date: 11/28/16 Attending physician:: YO CHASE Consult reason:: I was asked by Dr. Chase to see this patient because of acute kidney injury with worsening kidney function and acute pulmonary edema. History of Present Illness Admission Date/PCP: 11/26/16 08:34 YO CHASE, History of Present Illness: The patient is an 81-year-old white female with extensive past medical history to include chronic kidney disease stage IV, coronary artery disease, hypertension, diabetes mellitus who presented to the emergency room with the left lower quadrant pain and rectal bleeding which she brought in in a rc jar. This is the second or third episode of rectal bleeding. She did have a colonoscopy about 3 months ago with polypectomies. She was admitted initially on the telemetry upstairs. She also came in with worsening kidney function with BUN of 96 and creatinine of 2.26. Patient has baseline chronic kidney disease stage IV with creatinine around 2.5 to less than 3 and estimated GFR anywhere from 16-20. GI has been consulted care of Dr. Lyman. Patient was hydrated since admission and was given blood transfusion yesterday. Her diuretics has been withheld since admission. This morning the patient went into acute respiratory distress. The [employer] was called and and Dr. Lagos has evaluated the patient. Chest x-ray showed pulmonary vascular congestion. Patient was placed on BiPAP, given Lasix 40 mg IV plus additional 60 mg IV, metolazone 2.5 mg 1 dose, torsemide 60 mg 1 dose and patient was subsequently transferred to the ICU. Currently the patient is still on BiPAP and oxygenating good with oxygen saturation of 100%. She tells me that she still has some abdominal pain. She is obviously still short of breath but denies any chest pain currently but admitted having chest pain earlier this morning. Her urine output has not been quantified for the last few days since admission and Ramon catheter was just inserted today. She at least 400 mL of urine since insertion of Ramon catheter. She was also started on Lasix drip at 5 mg an hour. Patient is wake and is communicative although difficult to understand because of the BiPAP. Otherwise she is pretty much coherent at this point. Past Medical History Cardiac Medical History: Reports: Atrial Fibrillation, Coronary Artery Disease, Heart Murmur, Hyperlipidemia, Hypertension-primary, Hypertension- shlomo-vascular , Peripheral Vascular Disease, Valvular Heart disease - Aortic stenosis Pulmonary Medical History: Reports: Asthma, Bronchitis, Chronic Obstructive Pulmonary Disease (COPD), Pneumonia Neurological Medical History: Reports: Migraine Endocrine Medical History: Reports: Diabetes Mellitus Type 2, Other - History of toxic multinodular goiter Renal/ Medical History: Reports: Chronic Kidney Disease Stage IV, Hypercalcemia, Proteinuria, Renal artery stenosis, Secondary Hyperparathyroidism Malignancy Medical History: Reports: Breast Cancer, Skin Cancer - Basal cell GI Medical History: Reports: Diverticulitis, Gastroesophageal Reflux Disease Musculoskeltal Medical History: Reports: Arthritis, Gout Psychiatric Medical History: Reports: Depression Hematology Medical History: Reports Anemia of Chronic Kidney Disease Past Surgical History Past Surgical History: Reports: Appendectomy, Cholecystectomy, Herniorrhaphy, Hysterectomy, Pacemaker, Renal Stent - Renal artery stent, Other - Previous EGDs and colonoscopies, breast lumpectomy Social History Information Source: Patient, Dr. Office Lives with: Spouse/Significant other Smoking Status: Never Smoker Frequency of Alcohol Use: None Hx Recreational Drug Use: No Drugs: None Hx Prescription Drug Abuse: No - Advance Directive Resuscitation Status: Full Code Family History Family History: DM - Mother, sister, brother, and father, Hypertension - Parents , sister, brother, Malignancy - Brother has leukemia, lung cancer on her brother , breast cancer in her sister Parental Family History Reviewed: Yes Children Family History Reviewed: Unknown Sibling(s) Family History Reviewed.: Yes Medication/Allergy Home Medications: Allopurinol [Zyloprim 100 mg Tablet] 100 mg PO DAILY 11/25/16 Anastrozole [Arimidex 1 mg Tablet] 1 mg PO DAILY 11/25/16 Ascorbic Acid [Vitamin C 500 mg Tablet] 500 mg PO DAILY 11/25/16 Aspirin [Adult Low Dose Aspirin EC] 81 mg PO DAILY 11/25/16 Carvedilol [Coreg] 6.25 mg PO BID 11/25/16 Cetirizine HCl [Zyrtec 10 mg Tablet] 10 mg PO DAILY 11/25/16 Diltiazem HCl [Cardizem Cd 240 mg Capsule.cr] 240 mg PO Q12 11/25/16 Famotidine [Pepcid 20 mg Tablet] 20 mg PO Q12 11/25/16 Fenofibrate Nanocrystallized [Triglide] 160 mg PO DAILY 11/25/16 Fluticasone Propionate [Flonase Nasal [place] 50 Mcg/Morenci 16 gm] 1 spray NASL Q12 11/25/16 Gabapentin [Neurontin 100 mg Capsule] 300 mg PO QHS 11/25/16 Hydrocodone/Acetaminophen [[place] 10-325 mg Tablet] 1 tab PO QIDP PRN 11/25/16 Insulin NPH Hum/Reg Insulin Hm [Humulin 70-30 Vial] 75 units SQ BID 11/25/16 Insulin NPH Hum/Reg Insulin Hm [Humulin 70-30 Vial] 85 units SQ QAM 11/25/16 Isosorbide Mononitrate [Imdur 30 mg Tablet.er] 90 mg PO DAILY 11/25/16 Losartan Potassium [Cozaar 100 mg Tablet] 100 mg PO DAILY 11/25/16 Magnesium Oxide [Mag-Ox 400 mg Tablet] 400 mg PO TID 11/25/16 Metolazone [Zaroxolyn 2.5 mg Tablet] 2.5 mg PO DAILY 11/25/16 Nitroglycerin [Nitrostat 0.4 mg (1/150 Gr) Tabs 25/Bottle] 0.4 mg SL Q5MP PRN Burns-3 Acid Ethyl Esters [Lovaza 1 gm Capsule] 2 gm PO BID 11/25/16 Ondansetron HCl [Zofran 8 mg Tablet] 8 mg PO Q8HP PRN 11/25/16 Paroxetine HCl [Paxil 20 mg Tablet] 20 mg PO QAM 11/25/16 Potassium Chloride [K-Tab ER] 20 meq PO BID 11/25/16 Rosuvastatin Calcium [Crestor 10 mg Tablet] 10 mg PO DAILY 11/25/16 Torsemide [Demadex 20 mg Tablet] 60 mg PO BID 11/25/16 Allergies/Adverse Reactions: codeine [Codeine] Allergy (Severe, Verified 09/29/16 09:18) Hospitalized Penicillins Allergy (Severe, Verified 09/29/16 09:18) Redness, heat, swelling at site promethazine HCl [From Phenergan] Allergy (Unknown, Verified 09/29/16 09:18) PROBLEMS WITH LEGS Sulfa (Sulfonamide Antibiotics) Allergy (Unknown, Verified 09/29/16 09:18) Unknown reaction hydralazine HCl [From Apresoline] Adverse Reaction (Severe, Verified 09/29/16 09 :18) Cardiac arrest atorvastatin calcium [From Lipitor] Adverse Reaction (Verified 09/29/16 09:18) IV Contrast Allergy (Severe, Uncoded 09/29/16 09:18) ESRD Review of Systems All systems: reviewed and no additional remarkable complaints except as stated Review of Systems: Constitutional: ABSENT: chills, fatigue, fever(s), headache(s), weight gain, weight loss Eyes: ABSENT: visual disturbances Ears: ABSENT: hearing changes Cardiovascular: ABSENT: orthropnea, palpitations; had chest pain earlier this morning and is short of breath, admits mild edema Respiratory: ABSENT: cough, hemoptysis; positive dyspnea Gastrointestinal: ABSENT: constipation, diarrhea, hematemesis, nausea, vomiting ; admits lower abdominal pain and presented with rectal bleeding initially Genitourinary: ABSENT: dysuria, hematuria; decreased urine output for the last 2 days per patient Musculoskeletal: ABSENT: joint swelling Integumentary: ABSENT: rash, wounds Neurological: ABSENT: abnormal gait, abnormal speech, confusion, dizziness, focal weakness, numbness, syncope Psychiatric: ABSENT: anxiety, depression Endocrine: ABSENT: cold intolerance, heat intolerance, polydipsia, polyuria Hematologic/Lymphatic: ABSENT: easy bleeding, easy bruising, lymphadenopathy Physical Exam Vital Signs: Temp Pulse Resp BP Pulse Ox 98.1 F 65 23 H 151/61 H 100 11/28/16 16:00 11/28/16 18:00 11/28/16 18:00 11/28/16 18:00 11/28/16 18:00 Intake & Output 11/27/16 11/28/16 11/29/16 06:59 06:59 06:59 Intake Total 2495 1880 129 Output Total 850 Balance 2495 1880 -721 Weight 78.2 kg 79.3 kg Exam: General appearance: In acute respiratory distress and currently on BiPAP, cooperative, well-developed, well-nourished Head exam: PRESENT: atraumatic, normocephalic Eye exam: PRESENT: Conjunctiva pale, EOMI, PERRLA. ABSENT: conjunctival injection, scleral icterus Mouth exam: PRESENT: moist, neck supple, tongue midline Neck exam: PRESENT: full ROM. ABSENT: carotid bruit, JVD, lymphadenopathy, thyromegaly Respiratory exam: PRESENT: Positive by basilar crackles by auscultation bilaterally. ABSENT: rhonchi, stridor, wheezes Cardiovascular exam: PRESENT: RRR, +S1, +S2. Grade 3/6 systolic ejection murmur r Pulses: PRESENT: normal radial pulses, normal dorsalis pedis pulses GI/Abdominal exam: PRESENT: normal bowel sounds, soft. Mild lower abdominal tenderness ABSENT: guarding, mass Rectal exam: deferred Extremities exam: PRESENT: full ROM. Mild bilateral lower extremity pitting edema ABSENT: calf tenderness Musculoskeletal: PRESENT: full ROM. ABSENT: deformity Neurological exam: PRESENT: alert, Awake, Oriented to person, Oriented to place , Oriented to time, reflexes normal, CN II-XII grossly intact. ABSENT: motor sensory deficit Psychiatric exam: PRESENT: appropriate affect, normal mood. ABSENT: homicidal ideation, suicidal ideation Skin exam: PRESENT: intact, dry, warm. ABSENT: rash Results Laboratory Results: 11/28/16 11:15 11/28/16 11:15 11/27/16 11/28/16 11/28/16 19:50 06:35 06:35 WBC 8.7 7.1 RBC 3.09 L 2.98 L Hgb 9.3 L 9.2 L Hct 27.9 L 27.1 L MCV 91 91 MCH 30.1 30.8 MCHC 33.2 33.8 RDW 16.6 H 17.0 H Plt Count 127 L 129 L Seg Neutrophils % 81.6 H 75.8 Lymphocytes % 10.2 L 14.2 Monocytes % 6.7 7.2 Eosinophils % 1.3 2.2 Basophils % 0.2 0.6 Absolute Neutrophils 7.1 5.4 Absolute Lymphocytes 0.9 1.0 Absolute Monocytes 0.6 0.5 Absolute Eosinophils 0.1 0.2 Absolute Basophils 0.0 0.0 Carbonic Acid HCO3/H2CO3 Ratio ABG pH ABG pCO2 ABG pO2 ABG HCO3 ABG O2 Saturation ABG Base Excess FiO2 Sodium 135.6 L Potassium 4.1 Chloride 100 Carbon Dioxide 25 Anion Gap 11 BUN 85 H Creatinine 3.67 H Est GFR ( Amer) 14 L Est GFR (Non-Af Amer) 12 L Glucose 156 H Calcium 9.2 Total Bilirubin 0.4 AST 22 ALT 26 Alkaline Phosphatase 48 Total Protein 5.2 L Albumin 3.2 L 11/28/16 11/28/16 11/28/16 11:15 11:15 11:40 WBC 12.0 H RBC 3.50 L Hgb 10.6 L Hct 32.4 L MCV 93 MCH 30.3 MCHC 32.7 RDW 17.3 H Plt Count 184 Seg Neutrophils % Lymphocytes % Monocytes % Eosinophils % Basophils % Absolute Neutrophils Absolute Lymphocytes Absolute Monocytes Absolute Eosinophils Absolute Basophils Carbonic Acid 1.55 H HCO3/H2CO3 Ratio 13:1 ABG pH 7.21 L ABG pCO2 51.6 H ABG pO2 92.3 ABG HCO3 20.3 ABG O2 Saturation 95.4 ABG Base Excess -7.5 FiO2 50% Sodium 136.6 L Potassium 4.3 Chloride 98 Carbon Dioxide 23 Anion Gap 16 BUN 83 H Creatinine 3.79 H Est GFR ( Amer) 14 L Est GFR (Non-Af Amer) 11 L Glucose 215 H Calcium 9.4 Total Bilirubin 0.6 AST 26 ALT 36 Alkaline Phosphatase 64 Total Protein 6.1 L Albumin 3.8 11/28/16 11/28/16 11/28/16 11:15 11:15 11:15 Creatine Kinase < 20 L CK-MB (CK-2) 0.51 Troponin I 0.077 NT-Pro-B Natriuret Pep 1730 H 11/28/16 11/28/16 17:12 17:12 Creatine Kinase 23 L CK-MB (CK-2) 1.01 Troponin I 0.284 NT-Pro-B Natriuret Pep Impressions: Abdomen/Pelvis CT 11/25/16 07:56 IMPRESSION: Diverticulosis. No acute findings. Chest X-Ray 11/28/16 00:00 IMPRESSION: BASILAR INFILTRATES CONCERNING FOR PNEUMONIA, PARTICULAR ON THE RIGHT SIDE. ASYMMETRIC PULMONARY EDEMA MAY BE PRESENT. Assessment & Plan - Diagnosis (1) Acute kidney injury superimposed on chronic kidney disease Is this a current diagnosis for this admission?: YesPlan: Due to multiple prerenal factors with baseline cardiorenal syndrome. Currently the patient is fluid overloaded with acute pulmonary edema. She is nonoliguric. I discussed with the patient in the presence of her daughter and granddaughter that if her kidney function continues to get worse and she does not respond to the Lasix drip at dialysis will be an option. Patient agreed to do dialysis if needed. I will monitor the patient very closely overnight. We will repeat kidney function and monitor urine output. Continue Lasix drip and metolazone as ordered. Discontinue any IV fluids. (2) CHF (congestive heart failure) Qualifiers: Congestive heart failure type: diastolic Congestive heart failure chronicity: chronic Qualified Code(s): I50.32 - Chronic diastolic ( congestive) heart failure Is this a current diagnosis for this admission?: YesPlan: Currently decompensated secondary to fluid overload. This is also evident with decreasing sodium level. (3) Acute respiratory failure with hypoxia Is this a current diagnosis for this admission?: Yes (4) Anemia of chronic disease Is this a current diagnosis for this admission?: YesPlan: Secondary to rectal bleeding with baseline anemia of chronic kidney disease. (5) Chronic kidney disease, stage IV (severe) Is this a current diagnosis for this admission?: YesPlan: Due to cardiorenal syndrome. (6) Diabetes mellitus type 2 Is this a current diagnosis for this admission?: Yes (7) Diverticulitis large intestine Is this a current diagnosis for this admission?: Yes (8) Hypertension Qualifiers: Hypertension type: essential hypertension Qualified Code(s): I10 - Essential (primary) hypertension Is this a current diagnosis for this admission?: Yes (9) Lower GI bleeding Is this a current diagnosis for this admission?: Yes - Notes Notes: Thank you very much for this consultation. Case discussed with Dr. Lagos and Dr. Chinchilla earlier. Assessment and plan discussed with the patient, her daughter and granddaughter at bedside. - Time Time Spent: Greater than 70 Minutes
[2016-11-28] MEDS: ANASTROZOLE 1 MG TABLET PO SCH (21:48)
[2016-11-28] MEDS: GABAPENTIN 300 MG CAPSULE PO SCH (21:48)
[2016-11-28 23:31] LABS: ANION GAP 15 (5-19); BLOOD UREA NITROGEN 92 mg/dL (7-20); CALCIUM 10.1 mg/dL (8.4-10.2); CARBON DIOXIDE 26 mmol/L (22-30); CHLORIDE 98 mmol/L (98-107); CREATINE KINASE 23 U/L (30-135); GLUCOSE 149 mg/dL (75-110); POTASSIUM 3.5 mmol/L (3.6-5.0); SODIUM 138.9 mmol/L (137-145)
[2016-11-28 23:43] LABS: CREATINE KINASE MB 0.82 ng/mL (<4.55)
[2016-11-28 23:47] LABS: TROPONIN I 0.684 ng/mL
[2016-11-29] MEDS: METRONIDAZOLE 500 MG TABLET PO SCH ×4 (00:05→17:09)
[2016-11-29] MEDS: NITROGLYCERIN 2% OINTMENT 1 GM PACKET TP SCH ×5 (00:05→17:09)
[2016-11-29] MEDS: MORPHINE SULFATE 10 MG/ML INJ IV PRN ×3 (01:25→20:30)
--- NOTE | 2016-11-29 01:34 | PROGRESS NOTE E ---
Progress Note NAME: JACINTA LUNSFORD : 1935 AGE: 81Y DATE: 11/28/2016 ROOM: 602 SUBJECTIVE: Note: I have seen the patient in the 5th floor and also in the ICU to which she was transferred. I was with the patient from 11:15 a.m. to 12 noon. Note, this morning the patient seemed to be okay, but suddenly she decompensated and became very short of breath with PND, orthopnea and evidence of heart failure secondary to volume overload. She was seen in STERILIZATION TECHNICIAN and Dr. Lagos, the hospitalist, saw the patient and placed her on BiPAP with oxygen and also gave her 40 of Lasix and gave her 3 sublingual nitroglycerin and also placed her on 1 inch of nitroglycerin. The patient was breathing more comfortably but still was in volume overload heart failure when I saw her and she was not responding to verbal stimuli, but the patient's 02 sat had come up. I had asked them to draw ABGs and a set of SMA-12 and a CBC, and made arrangements to transfer the patient to the ICU. In the ICU the patient was more awake but still was on the BiPAP. There was no arrhythmia. The patient gestures that she has no chest pain. She still has orthopnea but no PND. There is no arrhythmia seen on the monitor. There are no TIA or CVA symptoms. Earlier her temperature was 98.2 degree with a pulse of 67 beats per minute, blood pressure was 198/50, her 02 sats are 95% on BiPAP. Subsequently when I saw her in the ICU, her heart rate went down to 63 and her blood pressure came down to 150/70, respirations of 18, O2 sats are 99% on BiPAP with an FiO2 of 50%. OBJECTIVE: GENERAL: On examination, the patient is very drowsy. She is mild to moderately obese but there are no accessory muscles of respiration in use. VITAL SIGNS: As mentioned earlier, her vital signs were already discussed above. HEENT: Head: Atraumatic, normocephalic. Eyes: Pupils are equal, round, regular, reactive to light. ENT is negative. NECK: Supple. There is JVD present. Carotids are equal. There are bilateral carotid bruits present. There is no lymphadenopathy. There is no goiter. Trachea is central. LUNGS: Show bibasilar rales of CHF. CARDIOVASCULAR: S1 and S2 are heard. There is no S3 gallop. There is no S4 gallop. There is a murmur of mild aortic stenosis present with preserved A2. There is also a murmur of mitral regurgitation present with radiation from the apex to the left axilla. There is no diastolic murmur. There is no rub. S1 is of neurologically intact. ABDOMEN: Soft, nontender. There is no hepatosplenomegaly. Bowel sounds are well heard. EXTREMITIES: Femorals are diminished. There are no femoral bruits. Leg pulses are diminished. There is no pedal edema. There is no DVT or cellulitis. There is no calf tenderness. NEUROLOGICAL: The patient is conscious, very drowsy but with no focal deficits. PSYCHIATRIC: At present on examination, the patient is very drowsy. DIAGNOSTIC STUDIES: The patient's chest x-ray shows volume overload CHF. The patient's EKG shows AV dual-paced rhythm. The white count is 12,000, hemoglobin is 10.6, hematocrit was 32.4, and her platelet count is 184,000. At 11:15 it showed a sodium of 136.6, potassium 4.3, chloride 98, CO2 23, the patient's BUN was 63, creatinine 3.79, GFR had gone down to 11 which is stage 5 [id number] kidney disease. The patient's baseline is stage 3. Glucose is 215. Calcium is 9.4 and liver function tests are normal. Her earlier troponin I is indeterminate at 0.077, CPK-MB is negative and her NT-proBNP was 1730. The patient's ABG showed a pH of 7.21, PCO2 was 51.6, PO2 was 92.3, O2 sats are 50%, FiO2 was 95.4%. IMPRESSION: 1. ACUTE RESPIRATORY FAILURE SECONDARY TO ACUTE CONGESTIVE HEART FAILURE, BOTH SYSTOLIC AND DIASTOLIC HEART FAILURE. Also secondary to volume overload since the patient's diuretics were held and the patient received IV fluids and also blood. 2. [id number] MITRAL REGURGITATION BY ECHOCARDIOGRAM OF 2015. The last echocardiogram showed moderate mitral regurgitation. 3. ACUTE ON CHRONIC RENAL FAILURE, AT PRESENT STAGE 5. 4. ABDOMINAL PAIN MUCH IMPROVED WITH RECTAL BLEEDING. There was no further bleeding as per the daughter although she had one bout of diarrhea. 5. HYPERTENSION. At present slightly elevated. 6. DIABETES MELLITUS TYPE 2, INSULIN REQUIRING AND CHRONIC KIDNEY COMPLICATIONS. 7. PAST HISTORY OF OLD CEREBROVASCULAR ACCIDENT, FULLY RECOVERED. 8. GASTROESOPHAGEAL REFLUX DISEASE AND HIATAL HERNIA. 9. MOST LIKELY HAS ESOPHAGEAL DYSMOTILITY DISORDER WITH INTERMITTENT DYSPHAGIA. 10. HISTORY OF LEFT RENAL ARTERY STENOSIS, STATUS POST LEFT RENAL ARTERY STENT. 11. HISTORY OF GOUT. 12. HISTORY OF MILD AORTIC STENOSIS. 13. HISTORY OF RIGHT BREAST CANCER. Treated medically. 14. ANEMIA, THIS IS SECONDARY TO GI LOSS DUE TO RECTAL BLEEDING ON A PATIENT WITH CHRONIC ANEMIA. Her hemoglobin has come up with blood transfusion but the patient is in heart failure. RECOMMENDATION: I would recommend continuing the BiPAP. The patient has been ordered to have 60 mg bolus of Lasix followed by 5 mg/hour of Lasix drip. Continue other medications and hold IV fluids and avoid any nephrotoxic drugs. Continue all other present medications and I have called Dr. De Luna, the prison classification counselor with whom the patient follows and she will come in to see the patient later and decide whether the patient will need hemodialysis or not. Note, 45 minutes spent on this patient with more than 50% of the time spent on direct patient care. The patient is critically ill and hence this should be considered a critical care note. More than 50% of the time spent on reviewing the patient's medications and ordering new medications. Note that the nitro paste has been increased to 2 inches q.6 h. Later will discuss with Dr. De Luna after she has seen the patient. The patient's STERILIZATION TECHNICIAN was known to me by Dr. Ley calling me on my cell phone and I rushed up to see the patient by which time Dr. Lagos had efficiently managed the patient's initial symptoms. Will follow with you. Thanking you. ADDENDUM: I saw the patient around 6 o'clock in the evening when Dr. De Luna saw the patient. She wanted to adjust the patient's medications and continue the patient's Lasix and she wanted to see how the patient does before committing the patient to hemodialysis. Earlier I had discussed with the patient and the patient's family and I have updated them on the patient's clinical condition. The patient still is critically ill. She has ongoing problems with multi-organs such as valvular disease, hypertension, diabetes mellitus, renal failure, volume overload heart failure and also diastolic heart failure. Hence, this should be considered a critical care note. DICTATING PHYSICIAN: KEN GIBSON M.D. [id number] PHY#: [id number] ID: [id number] JOB#: [id number] ACCT: [id number] cc: >
[2016-11-29 04:33] LABS: ABSOLUTE EOSINOPHILS # (AUTO) 0.1 10^3/uL (0.0-0.6); ABSOLUTE LYMPHOCYTES (AUTO) 0.7 10^3/uL (0.5-4.7); ABSOLUTE MONOCYTES (AUTO) 0.5 10^3/uL (0.1-1.4); ABSOLUTE NEUT (AUTO) 5.5 10^3/uL (1.7-8.2); BASOPHILS % (AUTO) 0.4 % (0-2); EOSINOPHILS % (AUTO) 1.3 % (0-6); HEMATOCRIT 31.8 % (36.0-47.0); HEMOGLOBIN 10.8 g/dL (12.0-15.5); HGB HCT DIFFERENCE 0.6; LYMPHOCYTES % (AUTO) 9.9 % (13-45); MEAN CORPUSCULAR HEMOGLOBIN 30.6 pg (27.0-33.4); MEAN CORPUSCULAR HGB CONC 33.9 g/dL (32.0-36.0); MEAN CORPUSCULAR VOLUME 90 fl (80-97); RED BLOOD COUNT 3.52 10^6/uL (3.72-5.28); SEGMENTED NEUTROPHILS % (AUTO) 81.4 % (42-78); WHITE BLOOD COUNT 6.7 10^3/uL (4.0-10.5)
[2016-11-29 04:40] LABS: ANION GAP 14 (5-19); BLOOD UREA NITROGEN 91 mg/dL (7-20); CALCIUM 10.4 mg/dL (8.4-10.2); CARBON DIOXIDE 28 mmol/L (22-30); CHLORIDE 99 mmol/L (98-107); CREATININE RESULT 3.09 mg/dL (0.52-1.25); GLUCOSE 151 mg/dL (75-110); POTASSIUM 3.3 mmol/L (3.6-5.0); SODIUM 140.8 mmol/L (137-145)
[2016-11-29] MEDS: LANSOPRAZOLE 30 MG TAB.RAP.DR PO SCH ×2 (06:13→16:29)
[2016-11-29] MEDS: PAROXETINE HCL 20 MG TABLET PO SCH (07:28)
--- NOTE | 2016-11-29 08:16 | PDOC PROGRESS REPORT ---
Subjective Progress Note for:: 11/29/16 Subjective:: Patient transferred to the ICU for pulmonary decompensation. The patient states she is feeling better with increased pulmonary support. SHe states her abdominal pain is better Physical Exam Vital Signs: Temp Pulse Resp BP Pulse Ox 97.6 F 71 13 145/51 H 100 11/29/16 07:51 11/29/16 02:00 11/29/16 06:00 11/29/16 05:56 11/29/16 06:00 Intake & Output 11/28/16 11/29/16 11/30/16 06:59 06:59 06:59 Intake Total 1880 498 Output Total 3100 250 Balance 1880 -2602 -250 Weight 79.3 kg 79.4 kg General appearance: PRESENT: mild distress, other - Breathing through BiPAP machine GI/Abdominal exam: PRESENT: other - Not distended minimally tender no peritoneal signs no rigidity no guarding Results Laboratory Results: 11/29/16 04:03 11/29/16 04:03 11/28/16 11/28/16 11/28/16 11:15 11:15 11:40 WBC 12.0 H RBC 3.50 L Hgb 10.6 L Hct 32.4 L MCV 93 MCH 30.3 MCHC 32.7 RDW 17.3 H Plt Count 184 Seg Neutrophils % Lymphocytes % Monocytes % Eosinophils % Basophils % Absolute Neutrophils Absolute Lymphocytes Absolute Monocytes Absolute Eosinophils Absolute Basophils Carbonic Acid 1.55 H HCO3/H2CO3 Ratio 13:1 ABG pH 7.21 L ABG pCO2 51.6 H ABG pO2 92.3 ABG HCO3 20.3 ABG O2 Saturation 95.4 ABG Base Excess -7.5 FiO2 50% Sodium 136.6 L Potassium 4.3 Chloride 98 Carbon Dioxide 23 Anion Gap 16 BUN 83 H Creatinine 3.79 H Est GFR ( Amer) 14 L Est GFR (Non-Af Amer) 11 L Glucose 215 H Calcium 9.4 Total Bilirubin 0.6 AST 26 ALT 36 Alkaline Phosphatase 64 Total Protein 6.1 L Albumin 3.8 11/28/16 11/29/16 11/29/16 23:10 04:03 04:03 WBC 6.7 RBC 3.52 L Hgb 10.8 L Hct 31.8 L MCV 90 MCH 30.6 MCHC 33.9 RDW 17.0 H Plt Count 138 L Seg Neutrophils % 81.4 H Lymphocytes % 9.9 L Monocytes % 7.0 Eosinophils % 1.3 Basophils % 0.4 Absolute Neutrophils 5.5 Absolute Lymphocytes 0.7 Absolute Monocytes 0.5 Absolute Eosinophils 0.1 Absolute Basophils 0.0 Carbonic Acid HCO3/H2CO3 Ratio ABG pH ABG pCO2 ABG pO2 ABG HCO3 ABG O2 Saturation ABG Base Excess FiO2 Sodium 138.9 140.8 Potassium 3.5 L 3.3 L Chloride 98 99 Carbon Dioxide 26 28 Anion Gap 15 14 BUN 92 H 91 H Creatinine 3.20 H 3.09 H Est GFR ( Amer) 17 L 18 L Est GFR (Non-Af Amer) 14 L 14 L Glucose 149 H 151 H Calcium 10.1 10.4 H Total Bilirubin AST ALT Alkaline Phosphatase Total Protein Albumin 11/28/16 11/28/16 11/28/16 11:15 11:15 11:15 Creatine Kinase < 20 L CK-MB (CK-2) 0.51 Troponin I 0.077 NT-Pro-B Natriuret Pep 1730 H 11/28/16 11/28/16 11/28/16 17:12 17:12 23:10 Creatine Kinase 23 L 23 L CK-MB (CK-2) 1.01 Troponin I 0.284 NT-Pro-B Natriuret Pep 11/28/16 23:10 Creatine Kinase CK-MB (CK-2) 0.82 Troponin I 0.684 NT-Pro-B Natriuret Pep Impressions: Abdomen/Pelvis CT 11/25/16 07:56 IMPRESSION: Diverticulosis. No acute findings. Chest X-Ray 11/28/16 00:00 IMPRESSION: BASILAR INFILTRATES CONCERNING FOR PNEUMONIA, PARTICULAR ON THE RIGHT SIDE. ASYMMETRIC PULMONARY EDEMA MAY BE PRESENT. Assessment & Plan - Diagnosis (1) Abdominal pain Plan: 1. Patient's symptom complex of respiratory difficulties and abdominal pain appear improved. 2. Clinical, laboratory, and radiologic findings inconsistent with acute intra- abdominal pathology; will sign off; reconsult if needed.
[2016-11-29 09:16] LABS: MAGNESIUM 2.3 mg/dL (1.6-2.3); PHOSPHORUS 4.5 mg/dL (2.5-4.5)
--- NOTE | 2016-11-29 09:24 | PDOC PROGRESS REPORT ---
Subjective Progress Note for:: 11/29/16 Subjective:: Patient reports that she is breathing somewhat better today. Advanced directives were discussed at length with patient today and she has not made a decision. Patient admits to some chest discomfort which is located in her mid epigastrium. Patient denies abdominal pain, nausea, vomiting, fevers, chills, diarrhea, constipation, headache, new onset weakness. Physical Exam Vital Signs: Temp Pulse Resp BP Pulse Ox 97.6 F 71 13 145/51 H 100 11/29/16 07:51 11/29/16 02:00 11/29/16 06:00 11/29/16 05:56 11/29/16 06:00 Intake & Output 11/28/16 11/29/16 11/30/16 06:59 06:59 06:59 Intake Total 1880 498 Output Total 3100 250 Balance 1880 -2602 -250 Weight 79.3 kg 79.4 kg Exam: General: Awake alert and oriented x3, moderate respiratory distress HEENT: AT/NC, PERRL, EOMI, mild periorbital edema, oropharynx is moist, pink, no scleral icterus, no conjunctival injection Neck: + JVD, trachea midline Chest: Rales bilaterally CV: Regular rate and rhythm, normal S1 and S2, no rub or gallop, +2/6 sm rusb Abdomen: Soft, nontender to palpation, nondistended, active bowel sounds; no rebound, rigidity, or guarding Extremities: No cyanosis, clubbing; 3+edema Neuro: Cranial nerves II through XII are grossly intact without focal deficits; awake alert and oriented x3 Psych: Normal mood and affect Results Laboratory Results: 11/29/16 04:03 11/29/16 04:03 11/28/16 11/28/16 11/28/16 11:15 11:15 11:40 WBC 12.0 H RBC 3.50 L Hgb 10.6 L Hct 32.4 L MCV 93 MCH 30.3 MCHC 32.7 RDW 17.3 H Plt Count 184 Seg Neutrophils % Lymphocytes % Monocytes % Eosinophils % Basophils % Absolute Neutrophils Absolute Lymphocytes Absolute Monocytes Absolute Eosinophils Absolute Basophils Carbonic Acid 1.55 H HCO3/H2CO3 Ratio 13:1 ABG pH 7.21 L ABG pCO2 51.6 H ABG pO2 92.3 ABG HCO3 20.3 ABG O2 Saturation 95.4 ABG Base Excess -7.5 FiO2 50% Sodium 136.6 L Potassium 4.3 Chloride 98 Carbon Dioxide 23 Anion Gap 16 BUN 83 H Creatinine 3.79 H Est GFR ( Amer) 14 L Est GFR (Non-Af Amer) 11 L Glucose 215 H Calcium 9.4 Total Bilirubin 0.6 AST 26 ALT 36 Alkaline Phosphatase 64 Total Protein 6.1 L Albumin 3.8 11/28/16 11/29/16 11/29/16 23:10 04:03 04:03 WBC 6.7 RBC 3.52 L Hgb 10.8 L Hct 31.8 L MCV 90 MCH 30.6 MCHC 33.9 RDW 17.0 H Plt Count 138 L Seg Neutrophils % 81.4 H Lymphocytes % 9.9 L Monocytes % 7.0 Eosinophils % 1.3 Basophils % 0.4 Absolute Neutrophils 5.5 Absolute Lymphocytes 0.7 Absolute Monocytes 0.5 Absolute Eosinophils 0.1 Absolute Basophils 0.0 Carbonic Acid HCO3/H2CO3 Ratio ABG pH ABG pCO2 ABG pO2 ABG HCO3 ABG O2 Saturation ABG Base Excess FiO2 Sodium 138.9 140.8 Potassium 3.5 L 3.3 L Chloride 98 99 Carbon Dioxide 26 28 Anion Gap 15 14 BUN 92 H 91 H Creatinine 3.20 H 3.09 H Est GFR ( Amer) 17 L 18 L Est GFR (Non-Af Amer) 14 L 14 L Glucose 149 H 151 H Calcium 10.1 10.4 H Total Bilirubin AST ALT Alkaline Phosphatase Total Protein Albumin 11/28/16 11/28/16 11/28/16 11:15 11:15 11:15 Creatine Kinase < 20 L CK-MB (CK-2) 0.51 Troponin I 0.077 NT-Pro-B Natriuret Pep 1730 H 11/28/16 11/28/16 11/28/16 17:12 17:12 23:10 Creatine Kinase 23 L 23 L CK-MB (CK-2) 1.01 Troponin I 0.284 NT-Pro-B Natriuret Pep 11/28/16 23:10 Creatine Kinase CK-MB (CK-2) 0.82 Troponin I 0.684 NT-Pro-B Natriuret Pep Impressions: Abdomen/Pelvis CT 11/25/16 07:56 IMPRESSION: Diverticulosis. No acute findings. Chest X-Ray 11/28/16 00:00 IMPRESSION: BASILAR INFILTRATES CONCERNING FOR PNEUMONIA, PARTICULAR ON THE RIGHT SIDE. ASYMMETRIC PULMONARY EDEMA MAY BE PRESENT. Assessment & Plan - Diagnosis (1) Acute on chronic diastolic (congestive) heart failure Is this a current diagnosis for this admission?: YesPlan: Still hypervolemic. Appreciate cardiology input. Defer to them for changes in current regimen. Echo done July 2016 reveals EF greater than 65%, and moderate mitral regurgitation, pulmonary hypertension. Presumed given that this is acute on chronic diastolic congestive heart failure complicated by cardiorenal syndrome. Continue patient on Lasix drip and metolazone. Continue use of BiPAP. Patient on Imdur, nitroglycerin, Coreg, and Crestor. No anticoagulation at this time due to GI bleed. (2) Acute blood loss anemia Is this a current diagnosis for this admission?: YesPlan: Secondary to likely diverticular bleed. Patient did have a large transfusion of blood and subsequently became dyspneic requiring transfer to the ICU due to volume overload. Patient has had multiple endoscopies and CT scans for this problem. Continue to monitor H&H and transfuse as needed. (3) Diabetes mellitus type 2 Is this a current diagnosis for this admission?: YesPlan: Patient on 7030 and sliding scale (4) Acute kidney injury superimposed on chronic kidney disease Is this a current diagnosis for this admission?: YesPlan: Defer to nephrology for decision for initiation of dialysis. Nonoliguric renal failure. Secondary to cardiorenal syndrome. (5) Acute respiratory failure with hypoxia Is this a current diagnosis for this admission?: YesPlan: BiPAP as needed (6) Anemia in chronic kidney disease Is this a current diagnosis for this admission?: YesPlan: Patient will likely require Epogen (7) COPD (chronic obstructive pulmonary disease) Qualifiers: Emphysema type: unspecified Is this a current diagnosis for this admission?: YesPlan: Nebulized treatments as needed (8) Chronic kidney disease, stage IV (severe) Is this a current diagnosis for this admission?: Yes (9) Coronary artery disease Qualifiers: Coronary Disease-Associated Artery/Lesion type: [place] artery [place] vs. transplanted heart: [place] heart Associated angina: without angina Qualified Code(s): I25.10 - Atherosclerotic heart disease of [place] coronary artery without angina pectoris Is this a current diagnosis for this admission?: Yes (10) Diverticulitis large intestine Qualifiers: Diverticulitis bleeding: with bleeding Is this a current diagnosis for this admission?: YesPlan: Continue Cipro and Flagyl. (11) GERD (gastroesophageal reflux disease) Qualifiers: Esophagitis presence: without esophagitis Qualified Code(s): K21.9 - Gastro-esophageal reflux disease without esophagitis Is this a current diagnosis for this admission?: YesPlan: On PPI (12) Hypokalemia Is this a current diagnosis for this admission?: YesPlan: Continue repletion and monitor. Check magnesium in the a.m. (13) Mitral regurgitation Qualifiers: Cardiac valve disease etiology: nonrheumatic Qualified Code(s): I34.0 - Nonrheumatic mitral (valve) insufficiency Is this a current diagnosis for this admission?: Yes (14) Tricuspid valve regurgitation Qualifiers: Cardiac valve disease etiology: nonrheumatic Qualified Code(s): I36.1 - Nonrheumatic tricuspid (valve) insufficiency Is this a current diagnosis for this admission?: Yes (15) DVT prophylaxis Is this a current diagnosis for this admission?: YesPlan: She was unable to tolerate from logic prophylaxis secondary to GI bleeding. - Time Time Spent with patient: 35 or more minutes Medications reviewed and adjusted accordingly: Yes
[2016-11-29] MEDS ORDERED: CIPROFLOXACIN HCL 500 MG TABLET PO SCH (10:00)
[2016-11-29] MEDS: DILTIAZEM HCL 240 MG CAPSULE.CR PO SCH ×2 (10:36→22:03)
[2016-11-29] MEDS: POTASSIUM CHLORIDE 10 MEQ TABLET.SA PO SCH ×2 (10:36→22:04)
[2016-11-29] MEDS: OMEGA-3 ACID ETHYL ESTERS 1 GM CAPSULE PO SCH ×2 (10:37→17:09)
[2016-11-29] MEDS: ASPIRIN 81 MG TABLET, ENT COATED PO SCH (10:37)
[2016-11-29] MEDS: METOLAZONE 2.5 MG TABLET PO SCH (10:37)
[2016-11-29] MEDS: ALLOPURINOL 100 MG TABLET PO SCH (10:37)
[2016-11-29] MEDS: MAGNESIUM OXIDE 400 MG TABLET PO SCH ×3 (10:37→17:09)
[2016-11-29] MEDS: FLUTICASONE NASAL SPRAY 50 MCG/SPRY 120 SPRAY/16 GM NASL SCH ×2 (10:38→22:03)
[2016-11-29] MEDS: HUM INSULIN NPH/REG INSULIN HM 100 UNIT/1 ML 3 ML SUBCUT SCH ×2 (10:38→17:10)
[2016-11-29] MEDS: ISOSORBIDE MONONITRATE 30 MG TAB.ER.24H PO SCH (10:38)
[2016-11-29] MEDS: INSULIN LISPRO 100 UNIT/ML 3 ML VIAL SUBCUT PRN ×2 (11:28→17:08)
[2016-11-29] MEDS ORDERED: POTASSIUM CHLORIDE 10 MEQ TABLET.SA PO ONE (11:30)
[2016-11-29 12:03] LABS: ANION GAP 14 (5-19); BLOOD UREA NITROGEN 89 mg/dL (7-20); CALCIUM 10.2 mg/dL (8.4-10.2); CARBON DIOXIDE 27 mmol/L (22-30); CHLORIDE 96 mmol/L (98-107); CREATINE KINASE 22 U/L (30-135); CREATININE RESULT 2.57 mg/dL (0.52-1.25); GLUCOSE 244 mg/dL (75-110); MAGNESIUM 2.1 mg/dL (1.6-2.3); POTASSIUM 3.4 mmol/L (3.6-5.0); SODIUM 137.3 mmol/L (137-145)
[2016-11-29 12:15] LABS: CREATINE KINASE MB 0.53 ng/mL (<4.55); TROPONIN I 0.376 ng/mL
[2016-11-29 12:25] LABS: VENOUS BLOOD BASE EXCESS 5.1 mmol/L; VENOUS BLOOD HCO3 31.1 mmol/L (20-32); VENOUS BLOOD PCO2 52.4 mmHg (35-63); VENOUS BLOOD PH 7.39 (7.30-7.42)
--- NOTE | 2016-11-29 12:32 | PDOC PROGRESS REPORT ---
Subjective Progress Note for:: 11/29/16 Subjective:: Patient remains in the ICU but pulmonary status has improved. She has had a recent echo. She is complaining of some mild epigastric discomfort. She is on PPI. Surgery has seen her but does not appear that there is any intra- abdominal pathology. Her presentation included abdominal pain, followed by bleeding. While she does have diverticulosis CT scan did not show any diverticulitis. I am suspecting more possible diagnosis of ischemic colitis. She remains on antibiotics. Her pressure has been stable. She is off anticoagulation due to her GI bleeding. She is at risk for ischemic colitis given her other risk factors. She appears to be doing much better. Physical Exam Vital Signs: Temp Pulse Resp BP Pulse Ox 97.6 F 60 19 156/75 H 98 11/29/16 07:51 11/29/16 07:36 11/29/16 11:56 11/29/16 11:56 11/29/16 11:56 Intake & Output 11/28/16 11/29/16 11/30/16 06:59 06:59 06:59 Intake Total 1880 498 Output Total 3100 625 Balance 1880 -2602 -625 Weight 79.3 kg 79.4 kg General appearance: PRESENT: cooperative Head exam: PRESENT: atraumatic, normocephalic Eye exam: PRESENT: EOMI, PERRLA. ABSENT: conjunctival injection, scleral icterus Mouth exam: PRESENT: neck supple Throat exam: ABSENT: tonsillar exudate, tonsillogmegaly Neck exam: ABSENT: meningismus, tenderness, thyromegaly Respiratory exam: PRESENT: unlabored. ABSENT: chest wall tenderness, stridor Cardiovascular exam: PRESENT: RRR, +S1, +S2. ABSENT: clicks GI/Abdominal exam: PRESENT: soft, tenderness. ABSENT: guarding, rebound Extremities exam: ABSENT: joint swelling Neurological exam: PRESENT: oriented to time, oriented to situation Psychiatric exam: PRESENT: anxious Skin exam: PRESENT: normal color. ABSENT: mottled, pallor, petechiae, urticaria , vesicles Results Laboratory Results: 11/29/16 04:03 11/29/16 11:30 11/28/16 11/29/16 11/29/16 23:10 04:03 04:03 WBC 6.7 RBC 3.52 L Hgb 10.8 L Hct 31.8 L MCV 90 MCH 30.6 MCHC 33.9 RDW 17.0 H Plt Count 138 L Seg Neutrophils % 81.4 H Lymphocytes % 9.9 L Monocytes % 7.0 Eosinophils % 1.3 Basophils % 0.4 Absolute Neutrophils 5.5 Absolute Lymphocytes 0.7 Absolute Monocytes 0.5 Absolute Eosinophils 0.1 Absolute Basophils 0.0 Carbonic Acid HCO3/H2CO3 Ratio ABG pH ABG pCO2 ABG pO2 ABG HCO3 ABG O2 Saturation ABG Base Excess VBG pH VBG pCO2 VBG HCO3 VBG Base Excess FiO2 Sodium 138.9 140.8 Potassium 3.5 L 3.3 L Chloride 98 99 Carbon Dioxide 26 28 Anion Gap 15 14 BUN 92 H 91 H Creatinine 3.20 H 3.09 H Est GFR ( Amer) 17 L 18 L Est GFR (Non-Af Amer) 14 L 14 L Glucose 149 H 151 H Calcium 10.1 10.4 H Phosphorus Magnesium 11/29/16 11/29/16 11/29/16 08:49 11:15 11:30 WBC RBC Hgb Hct MCV MCH MCHC RDW Plt Count Seg Neutrophils % Lymphocytes % Monocytes % Eosinophils % Basophils % Absolute Neutrophils Absolute Lymphocytes Absolute Monocytes Absolute Eosinophils Absolute Basophils Carbonic Acid Cancelled HCO3/H2CO3 Ratio Cancelled ABG pH Cancelled ABG pCO2 Cancelled ABG pO2 Cancelled ABG HCO3 Cancelled ABG O2 Saturation Cancelled ABG Base Excess Cancelled VBG pH VBG pCO2 VBG HCO3 VBG Base Excess FiO2 Cancelled Sodium 137.3 Potassium 3.4 L Chloride 96 L Carbon Dioxide 27 Anion Gap 14 BUN 89 H Creatinine 2.57 H Est GFR ( Amer) 22 L Est GFR (Non-Af Amer) 18 L Glucose 244 H Calcium 10.2 Phosphorus 4.5 Magnesium 2.3 2.1 11/29/16 12:13 WBC RBC Hgb Hct MCV MCH MCHC RDW Plt Count Seg Neutrophils % Lymphocytes % Monocytes % Eosinophils % Basophils % Absolute Neutrophils Absolute Lymphocytes Absolute Monocytes Absolute Eosinophils Absolute Basophils Carbonic Acid HCO3/H2CO3 Ratio ABG pH ABG pCO2 ABG pO2 ABG HCO3 ABG O2 Saturation ABG Base Excess VBG pH 7.39 VBG pCO2 52.4 VBG HCO3 31.1 VBG Base Excess 5.1 FiO2 Sodium Potassium Chloride Carbon Dioxide Anion Gap BUN Creatinine Est GFR ( Amer) Est GFR (Non-Af Amer) Glucose Calcium Phosphorus Magnesium 11/28/16 11/28/16 11/28/16 11:15 11:15 11:15 Creatine Kinase < 20 L CK-MB (CK-2) 0.51 Troponin I 0.077 NT-Pro-B Natriuret Pep 1730 H 11/28/16 11/28/16 11/28/16 17:12 17:12 23:10 Creatine Kinase 23 L 23 L CK-MB (CK-2) 1.01 Troponin I 0.284 NT-Pro-B Natriuret Pep 11/28/16 11/29/16 11/29/16 23:10 11:30 11:30 Creatine Kinase 22 L CK-MB (CK-2) 0.82 0.53 Troponin I 0.684 0.376 NT-Pro-B Natriuret Pep Impressions: Abdomen/Pelvis CT 11/25/16 07:56 IMPRESSION: Diverticulosis. No acute findings. Chest X-Ray 11/28/16 00:00 IMPRESSION: BASILAR INFILTRATES CONCERNING FOR PNEUMONIA, PARTICULAR ON THE RIGHT SIDE. ASYMMETRIC PULMONARY EDEMA MAY BE PRESENT. Assessment & Plan - Diagnosis (1) Diverticulitis large intestine Qualifiers: Diverticulitis bleeding: with bleeding Is this a current diagnosis for this admission?: YesPlan: Continue antibiotics for now. Maintain her pressure. CT scan did not show any diverticulitis. Question if she could have ischemic colitis. Treatment will be the same for now. (2) GI bleed Qualifiers: GI bleed type/associated pathology: diverticulitis Qualified Code(s) : K57.93 - Diverticulitis of intestine, part unspecified, without perforation or abscess with bleeding Is this a current diagnosis for this admission?: YesPlan: Seems to stabilize. Status post blood transfusion Continue to monitor Would avoid anticoagulation - Time Time Spent with patient: 25-34 minutes
--- NOTE | 2016-11-29 12:46 | PDOC PROGRESS REPORT ---
Subjective Progress Note for:: 11/29/16 Subjective:: Patient is doing better today compared to yesterday. She is off the BiPAP and is comfortable with nasal cannula. She is making a good amount of urine indicating good response to the Lasix drip. She still complains of some epigastric discomfort or pressure. She is able to tolerate full liquids. No active bleeding at this time. She denies any real chest pains and confirmed that her breathing is better. She denies any nausea or vomiting. Physical Exam Vital Signs: Temp Pulse Resp BP Pulse Ox 97.6 F 60 19 156/75 H 98 11/29/16 07:51 11/29/16 07:36 11/29/16 11:56 11/29/16 11:56 11/29/16 11:56 Intake & Output 11/28/16 11/29/16 11/30/16 06:59 06:59 06:59 Intake Total 1880 498 Output Total 3100 625 Balance 1880 -2602 -625 Weight 79.3 kg 79.4 kg Exam: General appearance: PRESENT: no acute distress, cooperative, well-developed, well-nourished Head exam: PRESENT: atraumatic, normocephalic Eye exam: PRESENT: conjunctiva pale, PERRLA. ABSENT: scleral icterus Neck exam: ABSENT: JVD Respiratory exam: PRESENT: Diminished breath sounds. She has diabetes for crackles ABSENT: rhonchi, unlabored, wheezes Cardiovascular exam: PRESENT: Irregular rate rhythm -+S1, +S2. ABSENT: diastolic murmur, systolic murmur GI/Abdominal exam: PRESENT: normal bowel sounds, soft. ABSENT: guarding, mass, tenderness Extremities exam: Minimal bilateral trace edema Neurological exam: PRESENT: alert, awake, oriented to person, place and time. Skin exam: PRESENT: dry, warm, Results Laboratory Results: 11/29/16 04:03 11/29/16 11:30 11/28/16 11/29/16 11/29/16 23:10 04:03 04:03 WBC 6.7 RBC 3.52 L Hgb 10.8 L Hct 31.8 L MCV 90 MCH 30.6 MCHC 33.9 RDW 17.0 H Plt Count 138 L Seg Neutrophils % 81.4 H Lymphocytes % 9.9 L Monocytes % 7.0 Eosinophils % 1.3 Basophils % 0.4 Absolute Neutrophils 5.5 Absolute Lymphocytes 0.7 Absolute Monocytes 0.5 Absolute Eosinophils 0.1 Absolute Basophils 0.0 Carbonic Acid HCO3/H2CO3 Ratio ABG pH ABG pCO2 ABG pO2 ABG HCO3 ABG O2 Saturation ABG Base Excess VBG pH VBG pCO2 VBG HCO3 VBG Base Excess FiO2 Sodium 138.9 140.8 Potassium 3.5 L 3.3 L Chloride 98 99 Carbon Dioxide 26 28 Anion Gap 15 14 BUN 92 H 91 H Creatinine 3.20 H 3.09 H Est GFR ( Amer) 17 L 18 L Est GFR (Non-Af Amer) 14 L 14 L Glucose 149 H 151 H Calcium 10.1 10.4 H Phosphorus Magnesium 11/29/16 11/29/16 11/29/16 08:49 11:15 11:30 WBC RBC Hgb Hct MCV MCH MCHC RDW Plt Count Seg Neutrophils % Lymphocytes % Monocytes % Eosinophils % Basophils % Absolute Neutrophils Absolute Lymphocytes Absolute Monocytes Absolute Eosinophils Absolute Basophils Carbonic Acid Cancelled HCO3/H2CO3 Ratio Cancelled ABG pH Cancelled ABG pCO2 Cancelled ABG pO2 Cancelled ABG HCO3 Cancelled ABG O2 Saturation Cancelled ABG Base Excess Cancelled VBG pH VBG pCO2 VBG HCO3 VBG Base Excess FiO2 Cancelled Sodium 137.3 Potassium 3.4 L Chloride 96 L Carbon Dioxide 27 Anion Gap 14 BUN 89 H Creatinine 2.57 H Est GFR ( Amer) 22 L Est GFR (Non-Af Amer) 18 L Glucose 244 H Calcium 10.2 Phosphorus 4.5 Magnesium 2.3 2.1 11/29/16 12:13 WBC RBC Hgb Hct MCV MCH MCHC RDW Plt Count Seg Neutrophils % Lymphocytes % Monocytes % Eosinophils % Basophils % Absolute Neutrophils Absolute Lymphocytes Absolute Monocytes Absolute Eosinophils Absolute Basophils Carbonic Acid HCO3/H2CO3 Ratio ABG pH ABG pCO2 ABG pO2 ABG HCO3 ABG O2 Saturation ABG Base Excess VBG pH 7.39 VBG pCO2 52.4 VBG HCO3 31.1 VBG Base Excess 5.1 FiO2 Sodium Potassium Chloride Carbon Dioxide Anion Gap BUN Creatinine Est GFR ( Amer) Est GFR (Non-Af Amer) Glucose Calcium Phosphorus Magnesium 11/28/16 11/28/16 11/28/16 11:15 11:15 11:15 Creatine Kinase < 20 L CK-MB (CK-2) 0.51 Troponin I 0.077 NT-Pro-B Natriuret Pep 1730 H 11/28/16 11/28/16 11/28/16 17:12 17:12 23:10 Creatine Kinase 23 L 23 L CK-MB (CK-2) 1.01 Troponin I 0.284 NT-Pro-B Natriuret Pep 11/28/16 11/29/16 11/29/16 23:10 11:30 11:30 Creatine Kinase 22 L CK-MB (CK-2) 0.82 0.53 Troponin I 0.684 0.376 NT-Pro-B Natriuret Pep Impressions: Abdomen/Pelvis CT 11/25/16 07:56 IMPRESSION: Diverticulosis. No acute findings. Chest X-Ray 11/28/16 00:00 IMPRESSION: BASILAR INFILTRATES CONCERNING FOR PNEUMONIA, PARTICULAR ON THE RIGHT SIDE. ASYMMETRIC PULMONARY EDEMA MAY BE PRESENT. Assessment & Plan - Diagnosis (1) Acute kidney injury superimposed on chronic kidney disease Is this a current diagnosis for this admission?: YesPlan: Due to multiple prerenal factors with baseline cardiorenal syndrome. Currently the patient is fluid overloaded with acute pulmonary edema. She is nonoliguric. I discussed with the patient in the presence of her daughter and granddaughter that if her kidney function continues to get worse and she does not respond to the Lasix drip at dialysis will be an option. Patient agreed to do dialysis if needed. Patient's kidney function is slowly improving today. We will hold dialysis for now. Continue Lasix drip and metolazone as ordered. Possible to switch the patient to intermittent dose of IV diuretics over the weekend. Discontinue any IV fluids. (2) CHF (congestive heart failure) Qualifiers: Congestive heart failure type: diastolic Congestive heart failure chronicity: chronic Qualified Code(s): I50.32 - Chronic diastolic ( congestive) heart failure Is this a current diagnosis for this admission?: YesPlan: Currently decompensated secondary to fluid overload. This is also evident with decreasing sodium level. (3) Acute respiratory failure with hypoxia Is this a current diagnosis for this admission?: Yes (4) Hypokalemia Is this a current diagnosis for this admission?: YesPlan: Replace potassium as necessary. (5) Anemia of chronic disease Is this a current diagnosis for this admission?: YesPlan: Secondary to rectal bleeding with baseline anemia of chronic kidney disease. (6) Chronic kidney disease, stage IV (severe) Is this a current diagnosis for this admission?: YesPlan: Due to cardiorenal syndrome. (7) Diabetes mellitus type 2 Is this a current diagnosis for this admission?: Yes (8) Diverticulitis large intestine Qualifiers: Diverticulitis bleeding: with bleeding Is this a current diagnosis for this admission?: Yes (9) Hypertension Qualifiers: Hypertension type: essential hypertension Qualified Code(s): I10 - Essential (primary) hypertension Is this a current diagnosis for this admission?: Yes (10) Lower GI bleeding Is this a current diagnosis for this admission?: Yes - Notes Notes: Discussed case with the patient and her at bedside. - Time Time with patient: Greater than 35 minutes
[2016-11-29] MEDS: CIPROFLOXACIN 400 MG/D5W RTU 400 MG/200 ML RTUPB IV SCH (16:29)
[2016-11-29] MEDS: ONDANSETRON HCL INJ/PF 4 MG/2 ML SDV IV PRN (16:29)
[2016-11-29 16:37] LABS: ABSOLUTE EOSINOPHILS # (AUTO) 0.1 10^3/uL (0.0-0.6); ABSOLUTE LYMPHOCYTES (AUTO) 0.7 10^3/uL (0.5-4.7); ABSOLUTE MONOCYTES (AUTO) 0.5 10^3/uL (0.1-1.4); ABSOLUTE NEUT (AUTO) 5.7 10^3/uL (1.7-8.2); BASOPHILS % (AUTO) 0.5 % (0-2); EOSINOPHILS % (AUTO) 1.2 % (0-6); HEMATOCRIT 29.9 % (36.0-47.0); HEMOGLOBIN 10.3 g/dL (12.0-15.5); LYMPHOCYTES % (AUTO) 9.5 % (13-45); MEAN CORPUSCULAR HGB CONC 34.4 g/dL (32.0-36.0); MEAN CORPUSCULAR VOLUME 90 fl (80-97); MONOCYTES % (AUTO) 7.7 % (3-13); RED BLOOD COUNT 3.33 10^6/uL (3.72-5.28); RED CELL DISTRIBUTION WIDTH 16.6 % (11.5-14.0); SEGMENTED NEUTROPHILS % (AUTO) 81.1 % (42-78)
[2016-11-29 16:48] LABS: ANION GAP 13 (5-19); BLOOD UREA NITROGEN 89 mg/dL (7-20); CALCIUM 10.2 mg/dL (8.4-10.2); CARBON DIOXIDE 29 mmol/L (22-30); CHLORIDE 97 mmol/L (98-107); CREATININE RESULT 2.54 mg/dL (0.52-1.25); GLUCOSE 265 mg/dL (75-110); MAGNESIUM 2.1 mg/dL (1.6-2.3); POTASSIUM 3.9 mmol/L (3.6-5.0); SODIUM 138.5 mmol/L (137-145)
[2016-11-29 20:56] LABS: ANION GAP 12 (5-19); BLOOD UREA NITROGEN 83 mg/dL (7-20); CALCIUM 10.1 mg/dL (8.4-10.2); CARBON DIOXIDE 32 mmol/L (22-30); CHLORIDE 94 mmol/L (98-107); GLUCOSE 216 mg/dL (75-110); POTASSIUM 3.8 mmol/L (3.6-5.0); SODIUM 137.9 mmol/L (137-145)
[2016-11-29] MEDS: ANASTROZOLE 1 MG TABLET PO SCH (22:01)
[2016-11-29] MEDS: GABAPENTIN 300 MG CAPSULE PO SCH (22:02)
[2016-11-30] MEDS: METRONIDAZOLE 500 MG TABLET PO SCH ×5 (00:52→23:47)
[2016-11-30] MEDS: NITROGLYCERIN 2% OINTMENT 1 GM PACKET TP SCH ×5 (00:52→23:47)
--- NOTE | 2016-11-30 01:43 | PROGRESS NOTE E ---
Progress Note NAME: JACINTA LUNSFORD : 1935 AGE: 81Y DATE: 11/29/2016 ROOM: 602 SUBJECTIVE: I saw the patient from 2:05 p.m. to 2:35 p.m. The patient is much better. She awake, alert, oriented x3. She still complains of being short of breath. She has some mild chest pressure which is chronic. She has a few ectopy, but there is basically AV-paced or A-sensed, V-paced rhythm. There is no leg edema. Orthopnea is still present. There is no PND. There are no TIA or CVA symptoms. She still has some mild lower-abdominal discomfort but much improved. There is no further rectal bleeding or diarrhea. OBJECTIVE: GENERAL: The patient is moderately obese, in no acute distress. VITAL SIGNS: The patient has a low-grade temperature of 99 degrees. Pulse is 86 beats per minute. Blood pressure is 137/74. Respirations are 21 breaths per minute. O2 sats are 99% on 2 liters nasal cannula. HEAD: Atraumatic, normocephalic. EYES: Pupils are equal, round, regular, reactive to light and accommodation. Extraocular movements are normal. Extraocular movements are normal. There is no conjunctival pallor. There is no scleral icterus. ENT: Negative. NECK: Supple. There is mild JVD present. Carotids are equal. There are bilateral carotid bruits present. There is no lymphadenopathy. There is no goiter. Trachea is central. LUNGS: Still show a few bibasilar rales with CHF. HEART: S1 and S2 are heard. There is no S3 gallop. There is no S4 gallop. There is a murmur of mild aortic stenosis present. The A2 is well heard and preserved. There is a murmur of mitral regurgitation which starts at the apex with radiation to the left axilla. There is no diastolic murmur. There is no rub or click. S1 is of normal intensity. ABDOMEN: Soft, nontender. There is no hepatosplenomegaly. Bowel sounds are well heard. EXTREMITIES: Femorals are diminished. There are no femoral bruits. Leg pulses are diminished. There is no pedal edema. There is no DVT or cellulitis. There is no calf tenderness. NEUROLOGICAL: The patient is conscious, awake, oriented x3, with no focal deficits. PSYCHIATRIC: The patient's judgement and insight are intact. Affect is normal. The patient is slightly anxious. INTAKE AND OUTPUT: The patient's 24-hour intake is 498 mL, output is 3100 mL. LABORATORY: The patient's white count is 7000, hemoglobin is 10.3, hematocrit is 29.9, platelet count is 149,000. The patient's sodium is 137.9, potassium 3.8, chloride is 94, CO2 is 32. The patient's BUN is 83, creatinine is 2.50. Her GFR has come up to 18 mL, which is stage IV chronic kidney disease. The patient's calcium is 10.1, magnesium is 2.1. The patient's troponin-I has trended down to 0.376. ASSESSMENT: 1. Acute respiratory failure secondary to acute congestive heart failure, both systolic and diastolic heart failure. Also secondary to volume overload, since the patient's diuretics were held, and the patient received IV fluids and also blood. 2. Moderate mitral regurgitation, at present compensated. The patient is on medication for this. 3. Acute on chronic renal failure. The patient's GFR has improved from a stage V to a stage IV. 4. Abdominal pain, much improved with rectal bleeding. This has stopped, but the patient still has some pain. This is thought to be secondary to diverticulitis/diverticular bleed. 5. Hypertension. At present, blood pressure well controlled. 6. Diabetes mellitus type 2, insulin requiring, with chronic kidney complications. 7. Past history of old cerebrovascular accident, fully recovered. 8. Gastroesophageal reflux disease and hiatal hernia. 9. Most likely has esophageal dysmotility disorder with intermittent dysphagia. 10. History of left renal artery stenosis, status post stent in the left renal artery, with no restenosis by echo from prior recent admission. 11. History of gout. 12. History of mild aortic stenosis. 13. History of right breast cancer, treated medically, with no metastases. 14. Anemia. Hemoglobin much improved. PLAN: Note, transition to nasal O2. Continue aspirin. We will restart the patient's Coreg from tomorrow. Continue antibiotics. Continue anti-hypoglycemic precautions. Note that the patient is on diltiazem 240 mg p.o. q. 12 hours. The patient continues to be on Lasix drip with good urine output. Continue Prevacid. Continue metronidazole. Continue nitroglycerin topically. Note, 30 minutes spent on this patient, more than 50% of the time spent in direct patient care. Medication was reviewed. Discussed with Dr. De Luna, the vending machine mechanic, who thinks that the patient is improving and has not yet decided to put the patient on dialysis. Note, in the meantime, the patient's family have made her a DNR by their own volition. Continue to watch the hemoglobin. Also, coordination of care done with other care providers on the case, including discussions with those taking care of the patient. Will follow with you. DICTATING PHYSICIAN: KEN GIBSON M.D. [id number] PHY#: [id number] ID: [id number] JOB#: [id number] ACCT: [id number] cc: >
[2016-11-30 04:29] LABS: ABSOLUTE EOSINOPHILS # (AUTO) 0.1 10^3/uL (0.0-0.6); ABSOLUTE MONOCYTES (AUTO) 0.6 10^3/uL (0.1-1.4); BASOPHILS % (AUTO) 0.7 % (0-2); EOSINOPHILS % (AUTO) 1.2 % (0-6); HEMATOCRIT 28.8 % (36.0-47.0); HEMOGLOBIN 9.9 g/dL (12.0-15.5); HGB HCT DIFFERENCE 0.9; LYMPHOCYTES % (AUTO) 16.8 % (13-45); MEAN CORPUSCULAR HEMOGLOBIN 30.6 pg (27.0-33.4); MEAN CORPUSCULAR HGB CONC 34.3 g/dL (32.0-36.0); MEAN CORPUSCULAR VOLUME 89 fl (80-97); MONOCYTES % (AUTO) 11.1 % (3-13); RED BLOOD COUNT 3.22 10^6/uL (3.72-5.28); RED CELL DISTRIBUTION WIDTH 16.5 % (11.5-14.0); SEGMENTED NEUTROPHILS % (AUTO) 70.2 % (42-78); WHITE BLOOD COUNT 5.7 10^3/uL (4.0-10.5)
[2016-11-30 04:40] LABS: ANION GAP 12 (5-19); BLOOD UREA NITROGEN 80 mg/dL (7-20); CARBON DIOXIDE 33 mmol/L (22-30); CHLORIDE 93 mmol/L (98-107); CREATININE RESULT 2.36 mg/dL (0.52-1.25); GLUCOSE 188 mg/dL (75-110); MAGNESIUM 1.9 mg/dL (1.6-2.3); POTASSIUM 3.5 mmol/L (3.6-5.0)
[2016-11-30 04:47] LABS: PREALBUMIN 16.4 mg/dL (17.6-36.0)
[2016-11-30] MEDS: LANSOPRAZOLE 30 MG TAB.RAP.DR PO SCH ×2 (06:43→17:22)
[2016-11-30] MEDS: NORMAL SALINE 250 ML with FUROSEMIDE 250 MG IV PRN ×2 (06:59)
[2016-11-30] MEDS: INSULIN LISPRO 100 UNIT/ML 3 ML VIAL SUBCUT PRN ×3 (07:32→23:46)
--- NOTE | 2016-11-30 08:30 | PDOC PROGRESS REPORT ---
Subjective Progress Note for:: 11/30/16 Subjective:: Patient much improved today. Off BiPAP. Patient denies chest pain, shortness of breath, nausea, vomiting, chills, diarrhea, constipation, headache, new onset weakness. Patient did complain of some slight abdominal discomfort but reports it is overall well controlled and improving. Complained of fever. MAXIMUM TEMPERATURE last 24 hours was 101.1 degrees Fahrenheit. Physical Exam Vital Signs: Temp Pulse Resp BP Pulse Ox 99.3 F 98 18 151/57 H 99 11/30/16 03:41 11/29/16 19:54 11/30/16 06:02 11/30/16 06:02 11/30/16 06:02 Intake & Output 11/29/16 11/30/16 12/01/16 06:59 06:59 06:59 Intake Total 498 722 Output Total 3100 3960 Balance -2602 -6869 Weight 79.4 kg 79.5 kg Exam: General: Awake alert and oriented x3, no acute respiratory distress HEENT: AT/NC, PERRL, EOMI, oropharynx is moist, pink, no scleral icterus, no conjunctival injection Neck: + JVD, trachea midline Chest: Diminished bilateral bases, slight bibasilar crackles CV: Regular rate and rhythm, normal S1 and S2, no rub or gallop, +2/6 mary rusb Abdomen: Soft, mildly tender to palpation right upper quadrant, nondistended, active bowel sounds; no rebound, rigidity, or guarding Extremities: No cyanosis, clubbing; 2+edema Neuro: Cranial nerves II through XII are grossly intact without focal deficits; awake alert and oriented x3 Psych: Normal mood and affect Results Laboratory Results: 11/30/16 04:15 11/30/16 04:15 11/29/16 11/29/16 11/29/16 08:49 11:15 11:30 WBC RBC Hgb Hct MCV MCH MCHC RDW Plt Count Seg Neutrophils % Lymphocytes % Monocytes % Eosinophils % Basophils % Absolute Neutrophils Absolute Lymphocytes Absolute Monocytes Absolute Eosinophils Absolute Basophils Carbonic Acid Cancelled HCO3/H2CO3 Ratio Cancelled ABG pH Cancelled ABG pCO2 Cancelled ABG pO2 Cancelled ABG HCO3 Cancelled ABG O2 Saturation Cancelled ABG Base Excess Cancelled VBG pH VBG pCO2 VBG HCO3 VBG Base Excess FiO2 Cancelled Sodium 137.3 Potassium 3.4 L Chloride 96 L Carbon Dioxide 27 Anion Gap 14 BUN 89 H Creatinine 2.57 H Est GFR ( Amer) 22 L Est GFR (Non-Af Amer) 18 L Glucose 244 H Calcium 10.2 Phosphorus 4.5 Magnesium 2.3 2.1 Prealbumin 11/29/16 11/29/16 11/29/16 12:13 16:25 16:25 WBC 7.0 RBC 3.33 L Hgb 10.3 L Hct 29.9 L MCV 90 MCH 31.0 MCHC 34.4 RDW 16.6 H Plt Count 149 L Seg Neutrophils % 81.1 H Lymphocytes % 9.5 L Monocytes % 7.7 Eosinophils % 1.2 Basophils % 0.5 Absolute Neutrophils 5.7 Absolute Lymphocytes 0.7 Absolute Monocytes 0.5 Absolute Eosinophils 0.1 Absolute Basophils 0.0 Carbonic Acid HCO3/H2CO3 Ratio ABG pH ABG pCO2 ABG pO2 ABG HCO3 ABG O2 Saturation ABG Base Excess VBG pH 7.39 VBG pCO2 52.4 VBG HCO3 31.1 VBG Base Excess 5.1 FiO2 Sodium 138.5 Potassium 3.9 Chloride 97 L Carbon Dioxide 29 Anion Gap 13 BUN 89 H Creatinine 2.54 H Est GFR ( Amer) 22 L Est GFR (Non-Af Amer) 18 L Glucose 265 H Calcium 10.2 Phosphorus Magnesium 2.1 Prealbumin 11/29/16 11/30/16 11/30/16 20:25 04:15 04:15 WBC 5.7 RBC 3.22 L Hgb 9.9 L Hct 28.8 L MCV 89 MCH 30.6 MCHC 34.3 RDW 16.5 H Plt Count 149 L Seg Neutrophils % 70.2 Lymphocytes % 16.8 Monocytes % 11.1 Eosinophils % 1.2 Basophils % 0.7 Absolute Neutrophils 4.0 Absolute Lymphocytes 1.0 Absolute Monocytes 0.6 Absolute Eosinophils 0.1 Absolute Basophils 0.0 Carbonic Acid HCO3/H2CO3 Ratio ABG pH ABG pCO2 ABG pO2 ABG HCO3 ABG O2 Saturation ABG Base Excess VBG pH VBG pCO2 VBG HCO3 VBG Base Excess FiO2 Sodium 137.9 138.0 Potassium 3.8 3.5 L Chloride 94 L 93 L Carbon Dioxide 32 H 33 H Anion Gap 12 12 BUN 83 H 80 H Creatinine 2.50 H 2.36 H Est GFR ( Amer) 22 L 24 L Est GFR (Non-Af Amer) 18 L 20 L Glucose 216 H 188 H Calcium 10.1 10.0 Phosphorus 3.0 Magnesium 1.9 Prealbumin 16.4 L 11/28/16 11/28/16 11/28/16 11:15 11:15 11:15 Creatine Kinase < 20 L CK-MB (CK-2) 0.51 Troponin I 0.077 NT-Pro-B Natriuret Pep 1730 H 11/28/16 11/28/16 11/28/16 17:12 17:12 23:10 Creatine Kinase 23 L 23 L CK-MB (CK-2) 1.01 Troponin I 0.284 NT-Pro-B Natriuret Pep 11/28/16 11/29/16 11/29/16 23:10 11:30 11:30 Creatine Kinase 22 L CK-MB (CK-2) 0.82 0.53 Troponin I 0.684 0.376 NT-Pro-B Natriuret Pep Impressions: Abdomen/Pelvis CT 11/25/16 07:56 IMPRESSION: Diverticulosis. No acute findings. Chest X-Ray 11/30/16 06:00 IMPRESSION: Interval improvement in the basilar opacities comparison the previous study. Interval improvement in the pulmonary vascular congestion interstitial edema comparison the prior study. Persistent probable bilateral pleural effusions, left greater than right. Assessment & Plan - Diagnosis (1) Acute on chronic diastolic (congestive) heart failure Is this a current diagnosis for this admission?: YesPlan: Still hypervolemic. Appreciate cardiology input. Defer to them for changes in current regimen. Echo done July 2016 reveals EF greater than 65%, and moderate mitral regurgitation, pulmonary hypertension. Presumed given that this is acute on chronic diastolic congestive heart failure complicated by cardiorenal syndrome. Continue patient on Lasix drip and metolazone. Continue use of BiPAP as needed. Patient on Imdur, nitroglycerin, Coreg, and Crestor. No anticoagulation at this time due to GI bleed. (2) Fever Qualifiers: Fever type: unspecified Qualified Code(s): R50.9 - Fever, unspecified Is this a current diagnosis for this admission?: YesPlan: If patient has a repeat fever of 101.5 or better or 2 consecutive temperatures of 100.4 patient will require blood cultures 2, UA, urine culture, chest x-ray. (3) Acute blood loss anemia Is this a current diagnosis for this admission?: YesPlan: Appreciate GI input on this case. Secondary to likely diverticular bleed. Patient did have a large transfusion of blood and subsequently became dyspneic requiring transfer to the ICU due to volume overload. Patient has had multiple endoscopies and CT scans for this problem. Continue to monitor H&H and transfuse as needed. (4) Diabetes mellitus type 2 Is this a current diagnosis for this admission?: YesPlan: Patient on 70/30 and sliding scale. Continue Accu-Cheks every 6 (5) Acute kidney injury superimposed on chronic kidney disease Is this a current diagnosis for this admission?: YesPlan: Defer to nephrology for decision for initiation of dialysis. Nonoliguric renal failure. Secondary to cardiorenal syndrome. Creatinine slightly improved. (6) Acute respiratory failure with hypoxia Is this a current diagnosis for this admission?: YesPlan: Oxygen and BiPAP as needed (7) Anemia in chronic kidney disease Is this a current diagnosis for this admission?: YesPlan: Patient will likely require Epogen (8) COPD (chronic obstructive pulmonary disease) Qualifiers: Emphysema type: unspecified Is this a current diagnosis for this admission?: YesPlan: Nebulized treatments as needed (9) Chronic kidney disease, stage IV (severe) Is this a current diagnosis for this admission?: YesPlan: Patient appears to be close to baseline (10) Coronary artery disease Qualifiers: Coronary Disease-Associated Artery/Lesion type: [place] artery [place] vs. transplanted heart: [place] heart Associated angina: without angina Qualified Code(s): I25.10 - Atherosclerotic heart disease of [place] coronary artery without angina pectoris Is this a current diagnosis for this admission?: Yes (11) Diverticulitis large intestine Qualifiers: Diverticulitis bleeding: with bleeding Is this a current diagnosis for this admission?: YesPlan: Continue Cipro and Flagyl. (12) GERD (gastroesophageal reflux disease) Qualifiers: Esophagitis presence: without esophagitis Qualified Code(s): K21.9 - Gastro-esophageal reflux disease without esophagitis Is this a current diagnosis for this admission?: Yes (13) Hypokalemia Is this a current diagnosis for this admission?: YesPlan: Continue repletion and monitor. Check magnesium in the a.m. (14) Mitral regurgitation Qualifiers: Cardiac valve disease etiology: nonrheumatic Qualified Code(s): I34.0 - Nonrheumatic mitral (valve) insufficiency Is this a current diagnosis for this admission?: Yes (15) Tricuspid valve regurgitation Qualifiers: Cardiac valve disease etiology: nonrheumatic Qualified Code(s): I36.1 - Nonrheumatic tricuspid (valve) insufficiency Is this a current diagnosis for this admission?: Yes (16) Pulmonary hypertension Is this a current diagnosis for this admission?: Yes (17) DVT prophylaxis Is this a current diagnosis for this admission?: YesPlan: She was unable to tolerate pharmacologic prophylaxis secondary to GI bleeding. CHADWICK mackey and SCDs
[2016-11-30] MEDS ORDERED: MAGNESIUM OXIDE 400 MG TABLET PO ONE (09:00)
[2016-11-30] MEDS ORDERED: POTASSIUM CHLORIDE 10 MEQ TABLET.SA PO ONE (09:00)
[2016-11-30] MEDS: OMEGA-3 ACID ETHYL ESTERS 1 GM CAPSULE PO SCH ×2 (09:20→17:22)
[2016-11-30] MEDS: ISOSORBIDE MONONITRATE 30 MG TAB.ER.24H PO SCH (09:20)
[2016-11-30] MEDS: ASPIRIN 81 MG TABLET, ENT COATED PO SCH (09:21)
[2016-11-30] MEDS: ALLOPURINOL 100 MG TABLET PO SCH (09:21)
[2016-11-30] MEDS: METOLAZONE 2.5 MG TABLET PO SCH (09:22)
[2016-11-30] MEDS: DILTIAZEM HCL 240 MG CAPSULE.CR PO SCH ×2 (09:22→22:03)
[2016-11-30] MEDS: PAROXETINE HCL 20 MG TABLET PO SCH (09:22)
[2016-11-30] MEDS: FLUTICASONE NASAL SPRAY 50 MCG/SPRY 120 SPRAY/16 GM NASL SCH ×2 (09:23→22:23)
[2016-11-30] MEDS: HUM INSULIN NPH/REG INSULIN HM 100 UNIT/1 ML 3 ML SUBCUT SCH ×2 (09:24→17:01)
[2016-11-30] MEDS: MAGNESIUM OXIDE 400 MG TABLET PO SCH ×3 (09:31→17:22)
[2016-11-30] MEDS: POTASSIUM CHLORIDE 10 MEQ TABLET.SA PO SCH ×2 (09:31→22:03)
[2016-11-30] MEDS: CIPROFLOXACIN 400 MG/D5W RTU 400 MG/200 ML RTUPB IV SCH (10:13)
[2016-11-30] MEDS: MORPHINE SULFATE 10 MG/ML INJ IV PRN (12:33)
--- NOTE | 2016-11-30 13:49 | PROGRESS NOTE E ---
Progress Note NAME: JACINTA LUNSFORD : 1935 AGE: 81Y DATE: 11/30/2016 ROOM: 602 SUBJECTIVE: Note, I was with the patient from 10:30 a.m. to 11:00 a.m. A total of 30 minutes were spent. The patient denies any chest pain or discomfort. There is no chest pressure. There is no arrhythmia seen on the monitor. The patient is in an AV paced and also atrial tachy and ventricular paced rhythm. She denies any chest pressure. There is no shortness of breath at rest. She still has some orthopnea, but no PND and no leg edema. There is no TIA or CVA symptoms. There is no nausea or vomiting. There is no pedal edema. OBJECTIVE: VITAL SIGNS: On examination, the patient's temperature is 99.5 degrees Fahrenheit, pulse is 68 beats per minute, blood pressure is 134/74, respirations are 18 per minute, O2 sats are 98% on 3 L nasal cannula. HEAD: Atraumatic, normocephalic. EYES: Pupils are equal, round, regular, reactive to light and accommodation. Extraocular movements are normal. Conjunctivae are pink. There is no scleral icterus. EARS: Tympanic membranes are intact. External auditory canals are clear. There are no lesions of the pinnae. NOSE: There is no deviated nasal septum. There is no inflammation of the nasal mucous membranes. MOUTH: Mucous membranes of the mouth are moist, tongue is moist. There are no ulcers. There is no bleeding from the gums. THROAT: There is no redness of the oropharynx. There are no exudates. SKIN: There are no skin rashes. There are no petechiae or ecchymoses. There are no skin lesions. NECK: Supple. There is no JVD. Carotids are equal. There are bruits present over the carotids. There is no carotid delay. There is no lymphadenopathy. There is no goiter. Trachea is central. LUNGS: Lungs show harsh breath sounds, but otherwise clear without any rhonchi, rales, or wheezing. HEART: S1 and S2 are heard. There is no S3 gallop. There is no S4 gallop. There is a murmur of mild aortic stenosis present. The A2 sound is preserved. There is a murmur of mitral regurgitation, heard in the apex, with radiation to the left axilla. There is no rub. ABDOMEN: Soft, nontender. There is no hepatosplenomegaly. Bowel sounds are well heard. There are no tender areas or masses. There is no rebound, guarding, or rigidity. EXTREMITIES: Femorals are diminished. There are no femoral bruits. Leg pulses are diminished. There is no pedal edema. There is no cyanosis or clubbing. There is no cellulitis. There is no calf tenderness. NEUROLOGICAL: The patient is conscious, awake, oriented x3, with no focal deficits. PSYCHIATRIC: The patient does not appear to be depressed or anxious. Judgment and insight are intact. Her affect is slightly flat. INTAKE AND OUTPUT: The patient's 24-hour intake is 722 mL in. Her output is 3960 out. DIAGNOSTIC DATA: The patient's chest x-ray shows improvement in the basilar opacities in comparison with prior study. There is blunting of both costophrenic angles, could be secondary to effusions, left posterior on the right. No pneumothorax. Pulmonary vascular congestion and interstitial edema is improved. In fact, there is no CHF by my looking at the x-ray. The patient's white count is 5,700; hemoglobin is 9.9; hematocrit is 28.8; platelet count is 149,000. The patient's sodium is 138, potassium is slightly low at 3.5, chloride is 98, CO2 is 33. The patient's BUN is 80, creatinine is 2.36. The GFR is improved to 20, but still stage 4. The glucose is 188. The calcium is 10. The phosphorus is 3. Magnesium is 1.9. Prealbumin is 16.4. ASSESSMENT: 1. Acute respiratory failure secondary to acute congestive heart failure, both systolic and diastolic heart failure, and also secondary to volume overload, and also mitral regurgitation, presently compensated. No evidence of congestive heart failure. 2. Moderate mitral regurgitation, at present it seems to be compensated without causing any heart failure. 3. Acute on chronic renal failure. At present, the GFR has improved to stage IV with slightly more improvement in the GFR from 18 to 20. 4. Abdominal pain, resolved, without any further rectal bleeding. Most likely this is secondary to diverticulitis/diverticular bleed. 5. Hypertension. At present, blood pressure well controlled. 6. Diabetes mellitus type 2, insulin requiring, with chronic kidney complications. 7. Past history of old cerebrovascular accident, fully recovered. 8. Gastroesophageal reflux disease and hiatal hernia. 9. Most likely has esophageal dysmotility disorder with intermittent dysphagia. 10. History of left renal artery stenosis, status post stent in the left renal artery, with no restenosis by renal Dopplers from prior recent admission. 11. History of gout. 12. History of mild aortic stenosis. 13. History of right breast cancer, treated medically, with no metastases. 14. Anemia. Hemoglobin is 9.9. PLAN: Continue the patient on Arimidex for her breast, *------*, allopurinol 100 mg p.o. daily. Continue atorvastatin for her hyperlipidemia. Continue Coreg at 6.25 mg p.o. q. 12 hours. Continue ciprofloxacin and metronidazole for her diverticulosis/diverticulitis. The patient is on hypoglycemic precautions. Continue the diltiazem 240 mg p.o. q. 12 hours. Continue insulin. Continue isosorbide mononitrate 90 mg p.o. daily. Continue Prevacid. Overall, there is improvement in the patient's condition. We will let Dr. De Luna decide as to whether the patient needs dialysis or not. I am going to continue the patient on Lasix drip. At present, in view of the patient getting antibiotics, Lasix drip has been held, but it will be restarted. The patient has good diuresis. TIME SPENT: Note, 30 minutes were spent on this patient with more than 50% of the time spent in direct patient care and review of the patient's medications and discussions with the nurse and also discussions with the other caregiving providers and formulating a management plan for this patient. I discussed with the patient and the patient's relatives/family. Will follow with you. Thanking you. DICTATING PHYSICIAN: KEN GIBSON M.D. [id number] ARMANDO#: [id number] ID: [id number] JOB#: [id number] ACCT: [id number] cc: >
[2016-11-30] MEDS: ANASTROZOLE 1 MG TABLET PO SCH (22:02)
[2016-11-30] MEDS: GABAPENTIN 300 MG CAPSULE PO SCH (22:04)
[2016-11-30] MEDS: ATORVASTATIN CALCIUM 20 MG TABLET PO SCH (22:23)
[2016-12-01] MEDS: ONDANSETRON HCL INJ/PF 4 MG/2 ML SDV IV PRN ×2 (00:04→12:07)
[2016-12-01] MEDS: MORPHINE SULFATE 10 MG/ML INJ IV PRN ×4 (00:04→23:19)
[2016-12-01] MEDS: CIPROFLOXACIN 400 MG/D5W RTU 400 MG/200 ML RTUPB IV SCH ×2 (04:17→22:16)
[2016-12-01] MEDS: NITROGLYCERIN 2% OINTMENT 1 GM PACKET TP SCH (05:26)
[2016-12-01] MEDS: LANSOPRAZOLE 30 MG TAB.RAP.DR PO SCH ×2 (05:26→18:28)
[2016-12-01] MEDS: METRONIDAZOLE 500 MG TABLET PO SCH ×4 (05:26→23:14)
[2016-12-01 05:52] LABS: ABSOLUTE EOSINOPHILS # (AUTO) 0.1 10^3/uL (0.0-0.6); ABSOLUTE LYMPHOCYTES (AUTO) 0.6 10^3/uL (0.5-4.7); ABSOLUTE MONOCYTES (AUTO) 0.7 10^3/uL (0.1-1.4); ABSOLUTE NEUT (AUTO) 5.4 10^3/uL (1.7-8.2); BASOPHILS % (AUTO) 0.2 % (0-2); EOSINOPHILS % (AUTO) 1.3 % (0-6); HEMATOCRIT 28.6 % (36.0-47.0); HEMOGLOBIN 9.9 g/dL (12.0-15.5); HGB HCT DIFFERENCE 1.1; LYMPHOCYTES % (AUTO) 9.1 % (13-45); MEAN CORPUSCULAR HEMOGLOBIN 31.1 pg (27.0-33.4); MEAN CORPUSCULAR HGB CONC 34.7 g/dL (32.0-36.0); MEAN CORPUSCULAR VOLUME 90 fl (80-97); MONOCYTES % (AUTO) 9.8 % (3-13); RED BLOOD COUNT 3.19 10^6/uL (3.72-5.28); RED CELL DISTRIBUTION WIDTH 16.1 % (11.5-14.0); SEGMENTED NEUTROPHILS % (AUTO) 79.6 % (42-78); WHITE BLOOD COUNT 6.8 10^3/uL (4.0-10.5)
[2016-12-01 06:13] LABS: ANION GAP 12 (5-19); BLOOD UREA NITROGEN 76 mg/dL (7-20); CARBON DIOXIDE 34 mmol/L (22-30); CHLORIDE 91 mmol/L (98-107); CREATININE RESULT 2.08 mg/dL (0.52-1.25); GLUCOSE 179 mg/dL (75-110); MAGNESIUM 1.9 mg/dL (1.6-2.3); PHOSPHORUS 3.1 mg/dL (2.5-4.5); POTASSIUM 3.6 mmol/L (3.6-5.0); SODIUM 136.8 mmol/L (137-145)
[2016-12-01] MEDS ORDERED: POTASSIUM CHLORIDE 10 MEQ TABLET.SA PO ONE (07:44)
[2016-12-01] MEDS ORDERED: NITROGLYCERIN 2% OINTMENT 1 GM PACKET TP SCH (11:27)
[2016-12-01] MEDS: ALLOPURINOL 100 MG TABLET PO SCH (11:35)
[2016-12-01] MEDS: ISOSORBIDE MONONITRATE 30 MG TAB.ER.24H PO SCH (11:35)
[2016-12-01] MEDS: POTASSIUM CHLORIDE 10 MEQ TABLET.SA PO SCH ×2 (11:35→22:14)
[2016-12-01] MEDS: ASPIRIN 81 MG TABLET, ENT COATED PO SCH (11:36)
[2016-12-01] MEDS: OMEGA-3 ACID ETHYL ESTERS 1 GM CAPSULE PO SCH ×2 (11:36→18:28)
[2016-12-01] MEDS: DILTIAZEM HCL 240 MG CAPSULE.CR PO SCH ×2 (11:36→22:15)
[2016-12-01] MEDS: MAGNESIUM OXIDE 400 MG TABLET PO SCH ×3 (11:36→18:43)
[2016-12-01] MEDS: PAROXETINE HCL 20 MG TABLET PO SCH (11:36)
[2016-12-01] MEDS: METOLAZONE 2.5 MG TABLET PO SCH (11:42)
[2016-12-01] MEDS: HUM INSULIN NPH/REG INSULIN HM 100 UNIT/1 ML 3 ML SUBCUT SCH (11:59)
[2016-12-01] MEDS: FLUTICASONE NASAL SPRAY 50 MCG/SPRY 120 SPRAY/16 GM NASL SCH (11:59)
[2016-12-01] MEDS: INSULIN LISPRO 100 UNIT/ML 3 ML VIAL SUBCUT PRN ×3 (12:00→22:34)
--- NOTE | 2016-12-01 14:24 | PDOC PROGRESS REPORT ---
Subjective Progress Note for:: 12/01/16 Subjective:: Patient much improved today. Off BiPAP. Patient denies chest pain, nausea, vomiting, chills, constipation, headache, new onset weakness. Patient complains of loose stool. Patient requests to be on the hospitalist service. MAXIMUM TEMPERATURE in last 24 hours was 99.8F. Physical Exam Vital Signs: Temp Pulse Resp BP Pulse Ox 98.4 F 60 20 150/47 H 100 12/01/16 04:40 12/01/16 04:40 12/01/16 04:40 12/01/16 04:40 12/01/16 04:40 Intake & Output 11/30/16 12/01/16 12/02/16 06:59 06:59 06:59 Intake Total 722 446 Output Total 3960 3575 Balance -5336 -8420 Weight 79.5 kg 76.9 kg Exam: General: Awake alert and oriented x3, no acute respiratory distress HEENT: AT/NC, PERRL, EOMI, oropharynx is moist, pink, no scleral icterus, no conjunctival injection Neck: + JVD, trachea midline Chest: Diminished bilateral bases, slight bibasilar crackles CV: Regular rate and rhythm, normal S1 and S2, no rub or gallop, +2/6 mary rusb Abdomen: Soft, NTTP, nondistended, active bowel sounds; no rebound, rigidity, or guarding Extremities: No cyanosis, clubbing; 2+edema Neuro: Cranial nerves II through XII are grossly intact without focal deficits; awake alert and oriented x3 Psych: Normal mood and affect Results Laboratory Results: 12/01/16 05:22 12/01/16 05:22 12/01/16 12/01/16 05:22 05:22 WBC 6.8 RBC 3.19 L Hgb 9.9 L Hct 28.6 L MCV 90 MCH 31.1 MCHC 34.7 RDW 16.1 H Plt Count 150 Seg Neutrophils % 79.6 H Lymphocytes % 9.1 L Monocytes % 9.8 Eosinophils % 1.3 Basophils % 0.2 Absolute Neutrophils 5.4 Absolute Lymphocytes 0.6 Absolute Monocytes 0.7 Absolute Eosinophils 0.1 Absolute Basophils 0.0 Sodium 136.8 L Potassium 3.6 Chloride 91 L Carbon Dioxide 34 H Anion Gap 12 BUN 76 H Creatinine 2.08 H Est GFR ( Amer) 28 L Est GFR (Non-Af Amer) 23 L Glucose 179 H Calcium 10.0 Phosphorus 3.1 Magnesium 1.9 11/28/16 11/28/16 11/28/16 11:15 11:15 11:15 Creatine Kinase < 20 L CK-MB (CK-2) 0.51 Troponin I 0.077 NT-Pro-B Natriuret Pep 1730 H 11/28/16 11/28/16 11/28/16 17:12 17:12 23:10 Creatine Kinase 23 L 23 L CK-MB (CK-2) 1.01 Troponin I 0.284 NT-Pro-B Natriuret Pep 11/28/16 11/29/16 11/29/16 23:10 11:30 11:30 Creatine Kinase 22 L CK-MB (CK-2) 0.82 0.53 Troponin I 0.684 0.376 NT-Pro-B Natriuret Pep Impressions: Abdomen/Pelvis CT 11/25/16 07:56 IMPRESSION: Diverticulosis. No acute findings. Chest X-Ray 11/30/16 06:00 IMPRESSION: Interval improvement in the basilar opacities comparison the previous study. Interval improvement in the pulmonary vascular congestion interstitial edema comparison the prior study. Persistent probable bilateral pleural effusions, left greater than right. Assessment & Plan - Diagnosis (1) Acute on chronic diastolic (congestive) heart failure Is this a current diagnosis for this admission?: YesPlan: Still hypervolemic. Appreciate cardiology input. Defer to them for changes in current regimen. Echo done July 2016 reveals EF greater than 65%, and moderate mitral regurgitation, pulmonary hypertension. Presumed given that this is acute on chronic diastolic congestive heart failure complicated by cardiorenal syndrome. Continue patient on Lasix drip and metolazone. Continue use of BiPAP as needed. Patient on Imdur, nitroglycerin, Coreg, and Crestor. No NITO/ARB secondary to EF greater than 40% and acute on chronic renal failure. No anticoagulation at this time due to GI bleed. (2) Fever Qualifiers: Fever type: unspecified Qualified Code(s): R50.9 - Fever, unspecified Is this a current diagnosis for this admission?: YesPlan: If patient has a repeat fever of 101.5 or better or 2 consecutive temperatures of 100.4 patient will require blood cultures 2, UA, urine culture, chest x-ray. There is some question of a developing pneumonia on the left lower lobe and will repeat chest x-ray tomorrow with AP and lateral if this persists. Will consider a change in patient's antibiotics to have better pneumonic coverage if this is the case. (3) Acute blood loss anemia Is this a current diagnosis for this admission?: YesPlan: Appreciate GI input on this case. Secondary to likely diverticular bleed. Patient did have a large transfusion of blood and subsequently became dyspneic requiring transfer to the ICU due to volume overload. Patient has had multiple endoscopies and CT scans for this problem. Continue to monitor H&H and transfuse as needed. Currently hemoglobin 9.9 and stable. (4) Diabetes mellitus type 2 Is this a current diagnosis for this admission?: YesPlan: Patient refusing 70/[address] hold. Currently receiving sliding scale. Continue Accu-Cheks achs (5) Acute kidney injury superimposed on chronic kidney disease Is this a current diagnosis for this admission?: YesPlan: Defer to nephrology for decision for initiation of dialysis. Nonoliguric renal failure. Secondary to cardiorenal syndrome. Creatinine slightly improved at 2.08. Baseline creatinine between 1.6 and 1.8. (6) Acute respiratory failure with hypoxia Is this a current diagnosis for this admission?: YesPlan: Oxygen and BiPAP as needed. Patient will likely need home O2 secondary to pulmonary hypertension. (7) Anemia in chronic kidney disease Is this a current diagnosis for this admission?: YesPlan: Patient will likely require Epogen (8) COPD (chronic obstructive pulmonary disease) Qualifiers: Emphysema type: unspecified Is this a current diagnosis for this admission?: YesPlan: Nebulized treatments as needed (9) Chronic kidney disease, stage IV (severe) Is this a current diagnosis for this admission?: YesPlan: Patient appears to be close to baseline (10) Coronary artery disease Qualifiers: Coronary Disease-Associated Artery/Lesion type: [place] artery [place] vs. transplanted heart: [place] heart Associated angina: without angina Qualified Code(s): I25.10 - Atherosclerotic heart disease of [place] coronary artery without angina pectoris Is this a current diagnosis for this admission?: Yes (11) Diverticulitis large intestine Qualifiers: Diverticulitis bleeding: with bleeding Is this a current diagnosis for this admission?: YesPlan: Continue Cipro and Flagyl. Consider repeat CT of the abdomen due to ongoing fever. Concern for abscess development. (12) GERD (gastroesophageal reflux disease) Qualifiers: Esophagitis presence: without esophagitis Qualified Code(s): K21.9 - Gastro-esophageal reflux disease without esophagitis Is this a current diagnosis for this admission?: YesPlan: On PPI (13) Hypokalemia Is this a current diagnosis for this admission?: YesPlan: Continue repletion and monitor. Check magnesium in the a.m. (14) Mitral regurgitation Qualifiers: Cardiac valve disease etiology: nonrheumatic Qualified Code(s): I34.0 - Nonrheumatic mitral (valve) insufficiency Is this a current diagnosis for this admission?: Yes (15) Tricuspid valve regurgitation Qualifiers: Cardiac valve disease etiology: nonrheumatic Qualified Code(s): I36.1 - Nonrheumatic tricuspid (valve) insufficiency Is this a current diagnosis for this admission?: Yes (16) Pulmonary hypertension Is this a current diagnosis for this admission?: Yes (17) DVT prophylaxis Is this a current diagnosis for this admission?: Yes - Time Time Spent with patient: 35 or more minutes Medications reviewed and adjusted accordingly: Yes Anticipated discharge: Acute Rehab
--- NOTE | 2016-12-01 17:13 | PROGRESS NOTE E ---
Progress Note NAME: JACINTA LUNSFORD : 1935 AGE: 81Y DATE: 12/01/2016 ROOM: 303 SUBJECTIVE: Note, I was with the patient from 12:20 p.m. to 12:50 p.m., a total of 30 minutes. The patient denies any chest pain or discomfort. She has no more chest heaviness except for at times. The patient has orthopnea, but no PND and there is no shortness of breath at rest. There is no arrhythmia seen on the monitor. There are no palpitations. There are no TIA or CVA symptoms. There is no leg edema. There is no nausea or vomiting. There is no abdominal pain. There is no further rectal bleeding. As per the family, the patient is eating a little bit more. OBJECTIVE: GENERAL: On examination, the patient is moderately obese in no acute major distress. She is on nasal 02. She is well groomed. VITAL SIGNS: She has a low-grade temperature of 99.8 degrees Fahrenheit, pulse is 60 beats per minute, blood pressure is 152/52, still a little bit high. Her respirations are 16 per minute, O2 sats are 97% on 2.5 L nasal cannula. HEAD: Atraumatic, normocephalic. EYES: Pupils are equal, round, regular, reactive to light and accommodation. Extraocular movements are normal. Conjunctivae are pink. There is no scleral icterus. EARS: Tympanic membranes are intact. External auditory canals are clear. There are no lesions of the pinnae. NOSE: There is no deviated nasal septum. There is no inflammation of the nasal mucous membranes. MOUTH: Mucous membranes of the mouth are moist, tongue is moist. There are no ulcers. There is no bleeding from the gums. THROAT: There is no redness of the oropharynx. There are no exudates. SKIN: There are no skin rashes. There are no petechiae or ecchymoses. There are no skin lesions. NECK: Supple. There is no JVD. Carotids are equal. There are no bruits over the carotids. There is no carotid delay. There is no lymphadenopathy. There is no goiter. Trachea is central. Note: There is a transmitted murmur from the aortic area over both the carotids. LUNGS: Show that the trachea is central. Lungs are clear to auscultation and percussion without any rhonchi, rales, or wheezing. HEART: S1 and S2 are heard. There is no S3 gallop. There is no S4 gallop. There is a murmur of mild aortic stenosis present. The A2 is well preserved. There is a murmur of mitral regurgitation in the apex with radiation to the left axilla. There is no rub. There is no diastolic murmur. ABDOMEN: Soft, nontender. There is no hepatosplenomegaly. Bowel sounds are well heard. There are no tender areas or masses. There is no rebound, guarding, or rigidity. EXTREMITIES: Femorals are diminished. There are no femoral bruits. Leg pulses are diminished. There is no pedal edema. There is no cyanosis or clubbing. There is no cellulitis. There is no calf tenderness. NEUROLOGICAL: The patient is conscious, awake, oriented x3, with no focal deficits. PSYCHIATRIC: The patient does not appear to be depressed or anxious. Judgment and insight are intact. Her affect is normal. DIAGNOSTIC DATA: The patient's sodium is 136.8, potassium is 3.6, chloride is 91, CO2 is 34. The patient's BUN is 76, creatinine is 2.08, GFR is reduced to 23 mL, which is slightly better than 20 mL yesterday and is still stage 4 chronic kidney disease. Her blood sugar is not well controlled at 199 and 204. Her calcium is 10.0. Her phosphorus is 3.1, magnesium is 1.9. The patient's white count is 6800, hemoglobin is 9.9, hematocrit is 28.6 and platelet count is 150,000. ASSESSMENT: 1. ACUTE RESPIRATORY FAILURE SECONDARY TO ACUTE CONGESTIVE HEART FAILURE, SECONDARY TO SYSTOLIC HEART FAILURE DUE TO VOLUME OVERLOAD AND [id number] DIASTOLIC HEART FAILURE AND ALSO SYSTOLIC HEART FAILURE DUE TO MITRAL REGURGITATION. At present, no evidence of congestive heart failure, compensated, stable. 2. MODERATE MITRAL REGURGITATION, WHICH SEEMS TO BE COMPENSATED WITHOUT ANY HEART FAILURE. 3. ACUTE ON CHRONIC RENAL FAILURE. The patient is at stage IV chronic kidney disease. GFR now is 23 but still is stage 4. 4. ABDOMINAL PAIN, RESOLVED WITHOUT ANY FURTHER WITHOUT ANY FURTHER RECTAL BLEEDING AND LIKELY THIS IS SECONDARY TO DIVERTICULITIS/ DIVERTICULAR BLEED. 5. HYPERTENSION. Blood pressure not very well controlled. 6. DIABETES MELLITUS TYPE 2, INSULIN REQUIRING, WITH CHRONIC KIDNEY COMPLICATIONS. 7. PAST HISTORY OF OLD CEREBROVASCULAR ACCIDENT, FULLY RECOVERED. 8. GASTROESOPHAGEAL REFLUX DISEASE AND HIATAL HERNIA. 9. MOST LIKELY PATIENT HAS ESOPHAGEAL DYSMOTILITY DISORDER WITH INTERMITTENT DYSPHAGIA. 10. HISTORY OF LEFT RENAL ARTERY STENOSIS, STATUS POST STENT IN THE LEFT RENAL ARTERY, WITH NO RESTENOSIS BY RENAL DOPPLERS FROM PRIOR RECENT ADMISSION. 11. HISTORY OF GOUT. 12. AORTIC STENOSIS. 13. HISTORY OF BREAST CANCER, TREATED MEDICALLY, WITH NO METASTASES. 14. ANEMIA. Hemoglobin is stable at 9.9. PLAN: Continue the patient on Arimidex. Continue allopurinol 100 mg p.o. daily. Continue atorvastatin for hyperlipidemia. Will increase the patient's Coreg to 12.5 mg p.o. q. 12 hours. Continue ciprofloxacin and metronidazole for her diverticulosis/diverticulitis. The patient is on hypoglycemic precautions. Continue diltiazem 240 mg p.o. q. 12 hours. Continue insulin. Continue isosorbide mononitrate 90 mg p.o. daily; this is more for esophageal dysmotility and esophageal spasm rather than for coronary artery disease. Will let Dr. De Luna decide whether the patient needs dialysis or not. Continue the patient on IV Lasix since the patient is making good urine. TIME SPENT: Note, 30 minutes were spent on this patient with more than 50% of the time spent in direct patient care and review of the patient's medications and discussions with the nurse and also discussions with the other caregiving providers and formulating a management plan for this patient. I discussed with the patient and the patient's relatives and family. Will follow with you. Hopefully Dr. De Luna will see the patient and make a decision as to whether she is going to put the patient on dialysis or not. Thanking you. DICTATING PHYSICIAN: KEN GIBSON M.D. [id number] PHY#: [id number] ID: [id number] JOB#: [id number] ACCT: [id number] cc: >
[2016-12-01] MEDS: SODIUM CHLORIDE NASAL SPRAY 44 ML NASL SCH ×2 (18:29→22:24)
[2016-12-01] MEDS ORDERED: CARVEDILOL 6.25 MG TABLET PO SCH (22:00)
[2016-12-01] MEDS: GABAPENTIN 300 MG CAPSULE PO SCH (22:14)
[2016-12-01] MEDS: ATORVASTATIN CALCIUM 20 MG TABLET PO SCH (22:14)
[2016-12-01] MEDS: ANASTROZOLE 1 MG TABLET PO SCH (22:16)
[2016-12-02 04:54] LABS: ABSOLUTE EOSINOPHILS # (AUTO) 0.1 10^3/uL (0.0-0.6); ABSOLUTE LYMPHOCYTES (AUTO) 0.9 10^3/uL (0.5-4.7); ABSOLUTE MONOCYTES (AUTO) 0.6 10^3/uL (0.1-1.4); ABSOLUTE NEUT (AUTO) 5.3 10^3/uL (1.7-8.2); BASOPHILS % (AUTO) 0.4 % (0-2); EOSINOPHILS % (AUTO) 1.2 % (0-6); HEMATOCRIT 27.8 % (36.0-47.0); HEMOGLOBIN 9.6 g/dL (12.0-15.5); LYMPHOCYTES % (AUTO) 13.3 % (13-45); MEAN CORPUSCULAR HGB CONC 34.6 g/dL (32.0-36.0); MEAN CORPUSCULAR VOLUME 90 fl (80-97); RED CELL DISTRIBUTION WIDTH 16.2 % (11.5-14.0); SEGMENTED NEUTROPHILS % (AUTO) 76.1 % (42-78)
[2016-12-02 05:15] LABS: ANION GAP 10 (5-19); BLOOD UREA NITROGEN 73 mg/dL (7-20); CARBON DIOXIDE 37 mmol/L (22-30); CHLORIDE 89 mmol/L (98-107); CREATININE RESULT 2.36 mg/dL (0.52-1.25); GLUCOSE 194 mg/dL (75-110); MAGNESIUM 1.9 mg/dL (1.6-2.3); PHOSPHORUS 2.8 mg/dL (2.5-4.5); POTASSIUM 3.8 mmol/L (3.6-5.0); SODIUM 135.7 mmol/L (137-145)
[2016-12-02] MEDS: METRONIDAZOLE 500 MG TABLET PO SCH ×4 (05:19→23:37)
[2016-12-02] MEDS: LANSOPRAZOLE 30 MG TAB.RAP.DR PO SCH ×2 (05:19→16:54)
--- NOTE | 2016-12-02 08:30 | PDOC PROGRESS REPORT ---
Subjective Progress Note for:: 12/02/16 Subjective:: The patient is seen on rounds today. She appears to be doing much better. She is presently out of ICU. The patient and her daughter are very upset about what happened last week. Discussed how the patient was fluid overloaded because of her acute diverticulitis and lower GI bleed. Discussed also how she went into an acute renal failure which has worsened her chronic kidney disease. They are very upset and state that thinks could have been done faster and if the catheter Ramon which have they requested would've been placed sooner she would've not gone into a acute congestive heart failure and acute renal failure. Advised the family that placing a Ramon catheter would've not solve the problem. They asked multiple other questions and placing multiple other blames. Advised the patient that she has an option of establishing with another physician The daughter is very angry. Advised the daughter that sometimes in patients with multiple severe comorbidities the things just do not go as with planned. Physical Exam Vital Signs: Temp Pulse Resp BP Pulse Ox 98.2 F 60 20 137/35 H 99 12/02/16 06:06 12/02/16 07:00 12/02/16 03:32 12/02/16 03:32 12/02/16 03:32 Intake & Output 12/01/16 12/02/16 12/03/16 06:59 06:59 06:59 Intake Total 446 567 Output Total 3575 1450 Balance -3129 -883 Weight 76.9 kg 78 kg General appearance: PRESENT: mild distress Head exam: PRESENT: atraumatic Neck exam: PRESENT: carotid bruit Respiratory exam: PRESENT: crackles Cardiovascular exam: PRESENT: irregular rhythm Pulses: PRESENT: +1 pedal pulses bilateral GI/Abdominal exam: PRESENT: normal bowel sounds, soft Neurological exam: PRESENT: alert, awake Results Laboratory Results: 12/02/16 03:54 12/02/16 03:54 12/02/16 12/02/16 03:54 03:54 WBC 7.0 RBC 3.10 L Hgb 9.6 L Hct 27.8 L MCV 90 MCH 31.0 MCHC 34.6 RDW 16.2 H Plt Count 151 Seg Neutrophils % 76.1 Lymphocytes % 13.3 Monocytes % 9.0 Eosinophils % 1.2 Basophils % 0.4 Absolute Neutrophils 5.3 Absolute Lymphocytes 0.9 Absolute Monocytes 0.6 Absolute Eosinophils 0.1 Absolute Basophils 0.0 Sodium 135.7 L Potassium 3.8 Chloride 89 L Carbon Dioxide 37 H Anion Gap 10 BUN 73 H Creatinine 2.36 H Est GFR ( Amer) 24 L Est GFR (Non-Af Amer) 20 L Glucose 194 H Calcium 10.0 Phosphorus 2.8 Magnesium 1.9 11/30/16 16:45 Stool - Stool - Final 11/29/16 17:50 Catheterized Urine Urine Culture - Final NO GROWTH 2 DAYS 11/30/16 09:25 Nasophary ([facility] Only) MRSA Surveillance Culture - Final NO MRSA RECOVERED 11/28/16 11/28/16 11/28/16 11:15 11:15 11:15 Creatine Kinase < 20 L CK-MB (CK-2) 0.51 Troponin I 0.077 NT-Pro-B Natriuret Pep 1730 H 11/28/16 11/28/16 11/28/16 17:12 17:12 23:10 Creatine Kinase 23 L 23 L CK-MB (CK-2) 1.01 Troponin I 0.284 NT-Pro-B Natriuret Pep 11/28/16 11/29/16 11/29/16 23:10 11:30 11:30 Creatine Kinase 22 L CK-MB (CK-2) 0.82 0.53 Troponin I 0.684 0.376 NT-Pro-B Natriuret Pep Impressions: Abdomen/Pelvis CT 11/25/16 07:56 IMPRESSION: Diverticulosis. No acute findings. Chest X-Ray 12/02/16 06:00 IMPRESSION: Stable basilar opacity-effusion. Assessment & Plan - Diagnosis (1) GI bleed Qualifiers: GI bleed type/associated pathology: diverticulitis Qualified Code(s) : K57.93 - Diverticulitis of intestine, part unspecified, without perforation or abscess with bleeding Is this a current diagnosis for this admission?: YesPlan: Resolved (2) Diverticulitis large intestine Qualifiers: Diverticulitis bleeding: with bleeding Is this a current diagnosis for this admission?: YesPlan: Improved with antibiotics (3) Chronic kidney disease, stage IV (severe) Is this a current diagnosis for this admission?: YesPlan: They acute renal failure improved. The patient is presently stable on Lasix drip (4) Hypokalemia Is this a current diagnosis for this admission?: Yes (5) Valvular heart disease Is this a current diagnosis for this admission?: Yes (6) Coronary artery disease Qualifiers: Coronary Disease-Associated Artery/Lesion type: [place] artery [place] vs. transplanted heart: [place] heart Associated angina: without angina Qualified Code(s): I25.10 - Atherosclerotic heart disease of [place] coronary artery without angina pectoris Is this a current diagnosis for this admission?: YesPlan: Stable continue current treatment (7) Anemia of chronic disease Is this a current diagnosis for this admission?: Yes (8) Lower GI bleeding Is this a current diagnosis for this admission?: Yes (9) Diabetes mellitus type 2 Is this a current diagnosis for this admission?: YesPlan: We'll continue with insulin - Plan Summary Plan Summary: The patient is being transferred to the hospitalist service.
[2016-12-02] MEDS: OMEGA-3 ACID ETHYL ESTERS 1 GM CAPSULE PO SCH ×2 (09:53→16:54)
[2016-12-02] MEDS: ISOSORBIDE MONONITRATE 30 MG TAB.ER.24H PO SCH ×2 (09:53→21:05)
[2016-12-02] MEDS: INSULIN LISPRO 100 UNIT/ML 3 ML VIAL SUBCUT PRN ×4 (09:53→22:32)
[2016-12-02] MEDS: PAROXETINE HCL 20 MG TABLET PO SCH (09:54)
[2016-12-02] MEDS: ASPIRIN 81 MG TABLET, ENT COATED PO SCH (09:54)
[2016-12-02] MEDS: ALLOPURINOL 100 MG TABLET PO SCH (09:55)
[2016-12-02] MEDS: DILTIAZEM HCL 240 MG CAPSULE.CR PO SCH ×2 (09:55→21:07)
[2016-12-02] MEDS: POTASSIUM CHLORIDE 10 MEQ TABLET.SA PO SCH ×2 (09:55→21:05)
[2016-12-02] MEDS: MAGNESIUM OXIDE 400 MG TABLET PO SCH ×3 (09:55→16:54)
[2016-12-02] MEDS: NORMAL SALINE 250 ML with FUROSEMIDE 250 MG IV PRN ×2 (09:56)
[2016-12-02] MEDS: METOLAZONE 2.5 MG TABLET PO SCH (09:57)
[2016-12-02] MEDS: SODIUM CHLORIDE NASAL SPRAY 44 ML NASL SCH ×4 (09:57→21:15)
[2016-12-02] MEDS: MORPHINE SULFATE 10 MG/ML INJ IV PRN ×2 (09:59→23:47)
[2016-12-02] MEDS: ONDANSETRON HCL INJ/PF 4 MG/2 ML SDV IV PRN ×2 (10:14→15:49)
--- NOTE | 2016-12-02 19:01 | PDOC PROGRESS REPORT ---
Subjective Progress Note for:: 12/02/16 Subjective:: Patient looks much better compared to last week. She is now downgraded from ICU to IMCU. She continues to make good amount of urine. This been hemodynamically stable so far. Her appetite is not back at has been not eating good. She otherwise doesn't have any other new complaints. Physical Exam Vital Signs: Temp Pulse Resp BP Pulse Ox 98.9 F 63 20 138/45 H 93 12/02/16 11:32 12/02/16 14:00 12/02/16 11:32 12/02/16 11:32 12/02/16 12:00 Intake & Output 12/01/16 12/02/16 12/03/16 06:59 06:59 06:59 Intake Total 446 567 952 Output Total 3575 1450 500 Balance -7399 -813 452 Weight 76.9 kg 78 kg 78 kg Exam: General appearance: PRESENT: no acute distress, cooperative, well-developed, well-nourished Head exam: PRESENT: atraumatic, normocephalic Eye exam: PRESENT: conjunctiva slightly pale, PERRLA. ABSENT: scleral icterus Neck exam: ABSENT: JVD Respiratory exam: PRESENT: Diminished breath sounds. Bibasilar crackles ABSENT : rhonchi, unlabored, wheezes Cardiovascular exam: PRESENT: Regular rate rhythm -+S1, +S2. ABSENT: diastolic murmur, systolic murmur GI/Abdominal exam: PRESENT: normal bowel sounds, soft. ABSENT: guarding, mass, tenderness Extremities exam: ABSENT: No edema Neurological exam: PRESENT: alert, awake, oriented to person, place and time. Skin exam: PRESENT: dry, warm, Results Laboratory Results: 12/02/16 03:54 12/02/16 03:54 12/02/16 12/02/16 03:54 03:54 WBC 7.0 RBC 3.10 L Hgb 9.6 L Hct 27.8 L MCV 90 MCH 31.0 MCHC 34.6 RDW 16.2 H Plt Count 151 Seg Neutrophils % 76.1 Lymphocytes % 13.3 Monocytes % 9.0 Eosinophils % 1.2 Basophils % 0.4 Absolute Neutrophils 5.3 Absolute Lymphocytes 0.9 Absolute Monocytes 0.6 Absolute Eosinophils 0.1 Absolute Basophils 0.0 Sodium 135.7 L Potassium 3.8 Chloride 89 L Carbon Dioxide 37 H Anion Gap 10 BUN 73 H Creatinine 2.36 H Est GFR ( Amer) 24 L Est GFR (Non-Af Amer) 20 L Glucose 194 H Calcium 10.0 Phosphorus 2.8 Magnesium 1.9 11/30/16 16:45 Stool - Stool - Final 11/28/16 11/28/16 11/28/16 11:15 11:15 11:15 Creatine Kinase < 20 L CK-MB (CK-2) 0.51 Troponin I 0.077 NT-Pro-B Natriuret Pep 1730 H 11/28/16 11/28/16 11/28/16 17:12 17:12 23:10 Creatine Kinase 23 L 23 L CK-MB (CK-2) 1.01 Troponin I 0.284 NT-Pro-B Natriuret Pep 11/28/16 11/29/16 11/29/16 23:10 11:30 11:30 Creatine Kinase 22 L CK-MB (CK-2) 0.82 0.53 Troponin I 0.684 0.376 NT-Pro-B Natriuret Pep Impressions: Abdomen/Pelvis CT 11/25/16 07:56 IMPRESSION: Diverticulosis. No acute findings. Chest X-Ray 12/02/16 06:00 IMPRESSION: Stable basilar opacity-effusion. Assessment & Plan - Diagnosis (1) Acute kidney injury superimposed on chronic kidney disease Is this a current diagnosis for this admission?: YesPlan: Due to multiple prerenal factors with baseline cardiorenal syndrome. Kidney function is currently now almost at baseline. I will discontinue the Lasix drip and start her back on her torsemide 60 mg by mouth twice a day. Discussed the plan with Dr. Chinchilla and he is in agreement. Also informed the patient about the plan. (2) CHF (congestive heart failure) Qualifiers: Congestive heart failure type: diastolic Congestive heart failure chronicity: chronic Qualified Code(s): I50.32 - Chronic diastolic ( congestive) heart failure Is this a current diagnosis for this admission?: YesPlan: Improved. (3) Acute respiratory failure with hypoxia Is this a current diagnosis for this admission?: YesPlan: Resolved. (4) Hypokalemia Is this a current diagnosis for this admission?: YesPlan: Replace potassium as necessary. (5) Anemia of chronic disease Is this a current diagnosis for this admission?: YesPlan: We will give the patient Procrit 20,000 units subcutaneously 1 dose today. No Evidence of active bleeding. (6) Chronic kidney disease, stage IV (severe) Is this a current diagnosis for this admission?: YesPlan: Due to cardiorenal syndrome. (7) Diabetes mellitus type 2 Is this a current diagnosis for this admission?: Yes (8) Diverticulitis large intestine Qualifiers: Diverticulitis bleeding: with bleeding Is this a current diagnosis for this admission?: Yes (9) Hypertension Qualifiers: Hypertension type: essential hypertension Qualified Code(s): I10 - Essential (primary) hypertension Is this a current diagnosis for this admission?: YesPlan: Well controlled. (10) Lower GI bleeding Is this a current diagnosis for this admission?: Yes - Time Time with patient: 15-25 minutes
[2016-12-02] MEDS: PHARMACY COMMUNICATION ORDER MC SCH (19:03)
[2016-12-02] MEDS ORDERED: EPOETIN ALFA INJ 20000 UNIT/1 ML VIAL (RENAL) SUBCUT ONE (20:00)
--- NOTE | 2016-12-02 20:38 | PROGRESS NOTE E ---
Progress Note NAME: JACINTA LUNSFORD : 1935 AGE: 81Y DATE: 12/02/2016 ROOM: 303 SUBJECTIVE: Note that the patient was seen from 8:00 a.m. to 8:30 a.m. The patient denies any chest pain or discomfort. She still has some orthopnea. There is no leg edema. There is no PND. There are no palpitations. There is no chest pain or discomfort. There are no TIA or CVA symptoms. The patient is making a good amount of urine. OBJECTIVE: GENERAL: On examination the patient is moderately obese, in no acute distress. VITAL SIGNS: She is afebrile with a temperature of 98.9 degrees Fahrenheit orally. Pulse is 60 beats per minute, monitor shows paced rhythm. Blood pressure is 150/49. Respirations are 20 per minute. O2 saturations are 97% on 3 liters nasal cannula. HEAD: Atraumatic/normocephalic. EYES: Pupils are equal, round, regular, reactive to light and accommodation. Extraocular movements are normal. Conjunctivae are pink. There is no scleral icterus. EARS: Tympanic membranes are intact. External auditory canals are clear. There are no lesions on the pinnae. NOSE: There is no deviated nasal septum. There is no inflammation of the nasal mucous membranes. MOUTH: Mucous membranes of the mouth are moist. Tongue is moist. There are no ulcers. There is no bleeding from the gums. There is no redness of the oropharynx. There are no exudates. SKIN: There are no skin rashes. There is no petechia or ecchymosis. There are no skin lesions. NECK: Supple. There is no JVD. Carotids are equal. There are bruits bilaterally over the carotids. There is no *------*. There is no lymphadenopathy. There is no goiter. Trachea is central. There is transmitted murmur from the aortic area to both the carotids, and also A2 is preserved. LUNGS: Show that the trachea is central. There are a few small areas of absent breath sounds in the bases. The rest of the lungs are clear. There is no rhonchi, rales, or wheezing. HEART: S1, S2 is heard. There is no S3 gallop. There is no S4 gallop. There is murmur of mild aortic stenosis present. The A2 sound is well preserved. There is murmur of mitral regurgitation at the apex with radiation to the left axilla. There is no rub. There is no diastolic murmur. ABDOMEN: Soft, nontender. There is no hepatosplenomegaly. Bowel sounds are well heard. There are no tender areas or masses. There is no rebound, guarding, or rigidity. EXTREMITIES: Femorals are diminished. There is no femoral bruit. Leg pulses are diminished. There is no pedal edema. There is no cyanosis or clubbing. There is no cellulitis. There is no calf tenderness. NEUROLOGICAL: The patient is conscious, awake, alert, oriented x3 with no focal deficit. PSYCHIATRIC: The patient does not appear to be depressed or anxious. Judgement and insight are intact. Her affect is normal. FLUID BALANCE: The patient's intake is 567 mL, output is 1450 mL. DIAGNOSTIC DATA: The patient's chest x-ray shows small bilateral pleural effusions. There is mild cardiac enlargement without any heart failure. There are no infiltrates in the lung. The patient's white count is 7000, hemoglobin is 9.6, hematocrit is 27.8, platelet count is 151,000. The patient's sodium is 135.7, potassium is 3.8, chloride is 89, CO2 is 37, the patient's BUN is 73, creatinine is 2.36. GFR is reduced to 20 mL which is stage-4 chronic kidney disease. The GFR has come down from a GFR of 23 from yesterday. The patient's glucose is 207, calcium is 10, phosphorous is 2.8, magnesium is 1.9. IMPRESSION: 1. ACUTE RESPIRATORY FAILURE SECONDARY TO ACUTE CONGESTIVE HEART FAILURE. Due to acute systolic heart failure due to volume overload and acute on chronic diastolic heart failure, along with systolic heart due to mitral regurgitation. At present seems to be compensated, although there are small bilateral pleural effusions. 2. MODERATE MITRAL REGURGITATION WHICH SEEMS TO BE COMPENSATED. Continue Cardizem. 3. ACUTE ON CHRONIC RENAL FAILURE. At present stage 4. Her GFR is reduced. Probably the patient is being over diuresed. We will discuss with Dr. De Luna as to stop the patient's Lasix drip and put her on p.o. Lasix or any other p.o. diuretics such as torsemide. 4. ABDOMINAL PAIN. Resolved and the patient has no further abdominal pain or rectal bleeding. These both have resolved. 5. HYPERTENSION. Blood pressure is still on the higher side, but we will watch and see if we need to add another antihypertensive. 6. DIABETES MELLITUS TYPE 2. Insulin requiring and chronic kidney decompensation. Continue insulin. Note the blood sugars are very well controlled. We may have to increase the patient's insulin. 7. PAST HISTORY OF OLD CVA. Fully recovered. 8. GASTROESOPHAGEAL REFLUX DISEASE AND HIATAL HERNIA. 9. MOST LIKELY THE PATIENT HAS AN ESOPHAGEAL DYSMOTILITY DISORDER WITH INTERMITTENT DYSPHAGIA. This is the reason the patient is on Imdur. 10. HISTORY OF LEFT RENAL ARTERY STENOSIS. Status post stent in the left renal artery with no restenosis by renal Dopplers from prior recent admission. 11. HISTORY OF GOUT. 12. MILD AORTIC STENOSIS. Does not require treatment at present. 13. HISTORY OF BREAST CANCER. Treated medically with Arimidex without any metastases. 14. ANEMIA. Hemoglobin stable around 9.6. This is most likely secondary to chronic kidney disease and also a recent GI bleed. I would recommend Procrit and replacing the patient with iron. RECOMMENDATIONS: As mentioned earlier, continue the patient on Arimidex, continue atorvastatin. I will increase the patient's Coreg to 25 mg p.o. q.12 h. since her blood pressure is still high. Note that the patient has a permanent pacemaker, and hence we need not be worried about her heart rate. Continue antibiotics in the form of ciprofloxacin and metronidazole. I will discuss Dr. De Luna and will stop the patient's Lasix drip and put her on oral diuretics. Will increase the isosorbide mononitrate to 120 mg p.o. daily since this may help an esophageal spasm secondary to esophageal dysmotility disorder. Note that the patient has no coronary artery disease. Discussed with the patient and the patient's family. I discussed with the other attending physicians on the case. Medications reviewed and adjusted. Note, half an hour spent on this patient with more than 50% of the time spent on direct patient care. And note, even though I am not pre k special education teacher for [employer] tomorrow, the family and the patient requested that I see her daily on rounds. Hence, I will see her before or after office then on a p.r.n. basis if it is an emergency. All of this is discussed with the patient and the patient's family. Note that the patient is DNR. The daughter is her surrogate healthcare decision maker. DICTATING PHYSICIAN: KEN GIBSON M.D. [id number] PHY#: [id number] ID: [id number] JOB#: [id number] ACCT: [id number] cc:KEN GIBSON M.D. >
[2016-12-02] MEDS: GABAPENTIN 300 MG CAPSULE PO SCH (21:06)
[2016-12-02] MEDS: ATORVASTATIN CALCIUM 20 MG TABLET PO SCH (21:06)
[2016-12-02] MEDS: ANASTROZOLE 1 MG TABLET PO SCH (21:09)
[2016-12-02] MEDS ORDERED: CIPROFLOXACIN HCL 500 MG TABLET PO SCH (22:00)
[2016-12-02] MEDS ORDERED: CARVEDILOL 6.25 MG TABLET PO SCH (22:00)
[2016-12-03] MEDS: LANSOPRAZOLE 30 MG TAB.RAP.DR PO SCH ×2 (05:08→17:03)
[2016-12-03] MEDS: METRONIDAZOLE 500 MG TABLET PO SCH (05:08)
[2016-12-03 06:02] LABS: ABSOLUTE EOSINOPHILS # (AUTO) 0.1 10^3/uL (0.0-0.6); ABSOLUTE LYMPHOCYTES (AUTO) 0.9 10^3/uL (0.5-4.7); ABSOLUTE MONOCYTES (AUTO) 0.5 10^3/uL (0.1-1.4); ABSOLUTE NEUT (AUTO) 4.6 10^3/uL (1.7-8.2); BASOPHILS % (AUTO) 0.6 % (0-2); EOSINOPHILS % (AUTO) 2.4 % (0-6); HEMATOCRIT 27.3 % (36.0-47.0); HEMOGLOBIN 9.4 g/dL (12.0-15.5); HGB HCT DIFFERENCE 0.9; LYMPHOCYTES % (AUTO) 14.5 % (13-45); MEAN CORPUSCULAR HEMOGLOBIN 30.9 pg (27.0-33.4); MEAN CORPUSCULAR HGB CONC 34.4 g/dL (32.0-36.0); MEAN CORPUSCULAR VOLUME 90 fl (80-97); MONOCYTES % (AUTO) 8.3 % (3-13); RED BLOOD COUNT 3.04 10^6/uL (3.72-5.28); SEGMENTED NEUTROPHILS % (AUTO) 74.2 % (42-78); WHITE BLOOD COUNT 6.3 10^3/uL (4.0-10.5)
[2016-12-03 06:21] LABS: ANION GAP 12 (5-19); BLOOD UREA NITROGEN 78 mg/dL (7-20); CALCIUM 9.9 mg/dL (8.4-10.2); CARBON DIOXIDE 32 mmol/L (22-30); CHLORIDE 89 mmol/L (98-107); CREATININE RESULT 2.43 mg/dL (0.52-1.25); GLUCOSE 207 mg/dL (75-110); POTASSIUM 4.1 mmol/L (3.6-5.0); SODIUM 132.9 mmol/L (137-145)
[2016-12-03] MEDS: INSULIN LISPRO 100 UNIT/ML 3 ML VIAL SUBCUT PRN ×4 (08:57→22:12)
[2016-12-03] MEDS: SODIUM CHLORIDE NASAL SPRAY 44 ML NASL SCH ×4 (08:57→21:09)
[2016-12-03] MEDS: PAROXETINE HCL 20 MG TABLET PO SCH (08:57)
[2016-12-03] MEDS: METOLAZONE 2.5 MG TABLET PO SCH (08:58)
[2016-12-03] MEDS: TORSEMIDE 20 MG TABLET PO SCH ×2 (08:58→17:02)
[2016-12-03] MEDS: ASPIRIN 81 MG TABLET, ENT COATED PO SCH (08:59)
[2016-12-03] MEDS: ALLOPURINOL 100 MG TABLET PO SCH (08:59)
[2016-12-03] MEDS: MAGNESIUM OXIDE 400 MG TABLET PO SCH ×3 (09:00→17:01)
[2016-12-03] MEDS: POTASSIUM CHLORIDE 10 MEQ TABLET.SA PO SCH ×2 (09:01→21:07)
[2016-12-03] MEDS: DILTIAZEM HCL 240 MG CAPSULE.CR PO SCH ×2 (09:01→21:09)
[2016-12-03] MEDS: OMEGA-3 ACID ETHYL ESTERS 1 GM CAPSULE PO SCH ×2 (09:02→17:02)
--- NOTE | 2016-12-03 11:47 | PDOC PROGRESS REPORT ---
Subjective Progress Note for:: 12/03/16 Subjective:: Patient denies any chest pain or shortness of breath at this time. Edema is better. No paroxysmal nocturnal dyspnea, no orthopnea. Diarrhea resolved. No rectal bleeding noted. Interval history reviewed, history reviewed. Physical Exam Vital Signs: Temp Pulse Resp BP Pulse Ox 97.7 F 59 L 18 121/70 100 12/03/16 07:33 12/03/16 07:33 12/03/16 07:33 12/03/16 07:33 12/03/16 07:33 Intake & Output 12/02/16 12/03/16 12/04/16 06:59 06:59 06:59 Intake Total 567 1409 Output Total 1450 1625 Balance -883 -216 Weight 78 kg 78.4 kg General appearance: PRESENT: no acute distress, cooperative, obese Head exam: PRESENT: normocephalic Eye exam: PRESENT: conjunctiva pale, EOMI Mouth exam: PRESENT: moist, neck supple Neck exam: ABSENT: JVD Respiratory exam: PRESENT: clear to auscultation dion - Anteriorly bilateral. ABSENT: rhonchi, wheezes Cardiovascular exam: PRESENT: RRR, systolic murmur - Aortic area. ABSENT: gallop GI/Abdominal exam: PRESENT: soft. ABSENT: distended, tenderness Extremities exam: PRESENT: other - Mild anasarca Neurological exam: PRESENT: alert, awake, oriented to situation Skin exam: PRESENT: dry, warm. ABSENT: cyanosis Results Laboratory Results: 12/03/16 05:28 12/03/16 05:28 12/03/16 12/03/16 05:28 05:28 WBC 6.3 RBC 3.04 L Hgb 9.4 L Hct 27.3 L MCV 90 MCH 30.9 MCHC 34.4 RDW 16.0 H Plt Count 178 Seg Neutrophils % 74.2 Lymphocytes % 14.5 Monocytes % 8.3 Eosinophils % 2.4 Basophils % 0.6 Absolute Neutrophils 4.6 Absolute Lymphocytes 0.9 Absolute Monocytes 0.5 Absolute Eosinophils 0.1 Absolute Basophils 0.0 Sodium 132.9 L Potassium 4.1 Chloride 89 L Carbon Dioxide 32 H Anion Gap 12 BUN 78 H Creatinine 2.43 H Est GFR ( Amer) 23 L Est GFR (Non-Af Amer) 19 L Glucose 207 H Calcium 9.9 11/30/16 16:45 Stool - Stool - Final 11/30/16 16:45 Stool - Stool Stool Culture - Final NO SALMONELLA, SHIGELLA, CAMPYLOBACTER, OR E.COLI 0157 RECOVERED. NEGATIVE FOR SHIGA TOXINS 1&2. 11/28/16 11/28/16 11/28/16 11:15 11:15 11:15 Creatine Kinase < 20 L CK-MB (CK-2) 0.51 Troponin I 0.077 NT-Pro-B Natriuret Pep 1730 H 11/28/16 11/28/16 11/28/16 17:12 17:12 23:10 Creatine Kinase 23 L 23 L CK-MB (CK-2) 1.01 Troponin I 0.284 NT-Pro-B Natriuret Pep 11/28/16 11/29/16 11/29/16 23:10 11:30 11:30 Creatine Kinase 22 L CK-MB (CK-2) 0.82 0.53 Troponin I 0.684 0.376 NT-Pro-B Natriuret Pep Impressions: Abdomen/Pelvis CT 11/25/16 07:56 IMPRESSION: Diverticulosis. No acute findings. Chest X-Ray 12/02/16 06:00 IMPRESSION: Stable basilar opacity-effusion. Assessment & Plan - Diagnosis (1) Acute respiratory failure with hypoxia Is this a current diagnosis for this admission?: Yes (2) Diverticulitis large intestine Qualifiers: Diverticulitis bleeding: with bleeding Is this a current diagnosis for this admission?: Yes (3) GI bleed Qualifiers: GI bleed type/associated pathology: diverticulitis Qualified Code(s) : K57.93 - Diverticulitis of intestine, part unspecified, without perforation or abscess with bleeding Is this a current diagnosis for this admission?: Yes (4) Acute on chronic diastolic (congestive) heart failure Is this a current diagnosis for this admission?: Yes (5) Diabetes mellitus type 2 Is this a current diagnosis for this admission?: Yes (6) Acute kidney injury superimposed on chronic kidney disease Is this a current diagnosis for this admission?: Yes (7) Anemia of chronic disease Is this a current diagnosis for this admission?: Yes (8) Chronic kidney disease, stage IV (severe) Is this a current diagnosis for this admission?: Yes (9) Coronary artery disease Qualifiers: Coronary Disease-Associated Artery/Lesion type: [place] artery [place] vs. transplanted heart: [place] heart Associated angina: without angina Qualified Code(s): I25.10 - Atherosclerotic heart disease of [place] coronary artery without angina pectoris Is this a current diagnosis for this admission?: Yes (10) Valvular heart disease Is this a current diagnosis for this admission?: Yes (11) GERD (gastroesophageal reflux disease) Qualifiers: Esophagitis presence: without esophagitis Qualified Code(s): K21.9 - Gastro-esophageal reflux disease without esophagitis Is this a current diagnosis for this admission?: Yes (12) Essential hypertension Is this a current diagnosis for this admission?: Yes (13) Gout Qualifiers: Gout site: unspecified site Gout etiology: unspecified cause Chronicity: unspecified Qualified Code(s): M10.9 - Gout, unspecified Is this a current diagnosis for this admission?: Yes (14) History of stroke Is this a current diagnosis for this admission?: Yes - Time Time Spent with patient: 25-34 minutes - Plan Summary Plan Summary: Transition to oral diuretics. Discontinue IV Lasix. Continue physical therapy. I have discussed risks and benefits of indwelling catheter with the patient and family at bedside. She will decide later whether to discontinue or continue the catheter. She has refused subacute rehabilitation at a facility. Continue supportive care.
[2016-12-03] MEDS: HYDROCODONE/ACETAMINOPHEN 10-325 MG TABLET PO PRN ×2 (15:28→22:02)
[2016-12-03] MEDS: PHARMACY COMMUNICATION ORDER MC SCH (17:04)
[2016-12-03] MEDS ORDERED: TORSEMIDE 20 MG TABLET PO SCH (19:47)
--- NOTE | 2016-12-03 19:52 | PDOC PROGRESS REPORT ---
Subjective Progress Note for:: 12/03/16 Subjective:: Patient tells me that she feels like more herself today. She still describes some mild shortness of breath. She continues to make urine but she is now on a positive balance. She is eating elevated better tonight. Physical Exam Vital Signs: Temp Pulse Resp BP Pulse Ox 98.2 F 59 L 20 148/47 H 95 12/03/16 16:21 12/03/16 16:21 12/03/16 16:21 12/03/16 16:21 12/03/16 16:21 Intake & Output 12/02/16 12/03/16 12/04/16 06:59 06:59 06:59 Intake Total 567 1409 946 Output Total 1450 1625 625 Balance -883 -216 321 Weight 78 kg 78.4 kg Exam: General appearance: PRESENT: no acute distress, cooperative, well-developed, well-nourished Head exam: PRESENT: atraumatic, normocephalic Eye exam: PRESENT: conjunctiva pale, PERRLA. ABSENT: scleral icterus Neck exam: ABSENT: JVD Respiratory exam: PRESENT: Diminished breath sounds. Mildly basilar crackles ABSENT: rhonchi, unlabored, wheezes Cardiovascular exam: PRESENT: Regular rate rhythm -+S1, +S2. ABSENT: diastolic murmur, systolic murmur GI/Abdominal exam: PRESENT: normal bowel sounds, soft. ABSENT: guarding, mass, tenderness Extremities exam: Trace bilateral pitting lower extremity edema Neurological exam: PRESENT: alert, awake, oriented to person, place and time. Skin exam: PRESENT: dry, warm, Results Laboratory Results: 12/03/16 05:28 12/03/16 05:28 12/03/16 12/03/16 05:28 05:28 WBC 6.3 RBC 3.04 L Hgb 9.4 L Hct 27.3 L MCV 90 MCH 30.9 MCHC 34.4 RDW 16.0 H Plt Count 178 Seg Neutrophils % 74.2 Lymphocytes % 14.5 Monocytes % 8.3 Eosinophils % 2.4 Basophils % 0.6 Absolute Neutrophils 4.6 Absolute Lymphocytes 0.9 Absolute Monocytes 0.5 Absolute Eosinophils 0.1 Absolute Basophils 0.0 Sodium 132.9 L Potassium 4.1 Chloride 89 L Carbon Dioxide 32 H Anion Gap 12 BUN 78 H Creatinine 2.43 H Est GFR ( Amer) 23 L Est GFR (Non-Af Amer) 19 L Glucose 207 H Calcium 9.9 11/30/16 16:45 Stool - Stool - Final 11/30/16 16:45 Stool - Stool Stool Culture - Final 11/28/16 11/28/16 11/28/16 11:15 11:15 11:15 Creatine Kinase < 20 L CK-MB (CK-2) 0.51 Troponin I 0.077 NT-Pro-B Natriuret Pep 1730 H 11/28/16 11/28/16 11/28/16 17:12 17:12 23:10 Creatine Kinase 23 L 23 L CK-MB (CK-2) 1.01 Troponin I 0.284 NT-Pro-B Natriuret Pep 11/28/16 11/29/16 11/29/16 23:10 11:30 11:30 Creatine Kinase 22 L CK-MB (CK-2) 0.82 0.53 Troponin I 0.684 0.376 NT-Pro-B Natriuret Pep Impressions: Abdomen/Pelvis CT 11/25/16 07:56 IMPRESSION: Diverticulosis. No acute findings. Chest X-Ray 12/02/16 06:00 IMPRESSION: Stable basilar opacity-effusion. Assessment & Plan - Diagnosis (1) Acute kidney injury superimposed on chronic kidney disease Is this a current diagnosis for this admission?: YesPlan: Due to multiple prerenal factors with baseline cardiorenal syndrome. Kidney function is currently now almost at baseline. Torsemide is only being given 20 mg by mouth twice a day. From patient's history this may not be enough. I will increase her torsemide to 40 mg by mouth twice a day. Continue metolazone. Continue to monitor kidney function. (2) CHF (congestive heart failure) Qualifiers: Congestive heart failure type: diastolic Congestive heart failure chronicity: chronic Qualified Code(s): I50.32 - Chronic diastolic ( congestive) heart failure Is this a current diagnosis for this admission?: YesPlan: Improved. (3) Acute respiratory failure with hypoxia Is this a current diagnosis for this admission?: YesPlan: Resolved. (4) Anemia of chronic disease Is this a current diagnosis for this admission?: YesPlan: Procrit was given yesterday. (5) Chronic kidney disease, stage IV (severe) Is this a current diagnosis for this admission?: YesPlan: Due to cardiorenal syndrome. (6) Diabetes mellitus type 2 Is this a current diagnosis for this admission?: Yes (7) Diverticulitis large intestine Qualifiers: Diverticulitis bleeding: with bleeding Is this a current diagnosis for this admission?: Yes (8) Hypertension Qualifiers: Hypertension type: essential hypertension Qualified Code(s): I10 - Essential (primary) hypertension Is this a current diagnosis for this admission?: YesPlan: Well controlled. (9) Lower GI bleeding Is this a current diagnosis for this admission?: YesPlan: Resolved. - Time Time with patient: 15-25 minutes
[2016-12-03] MEDS ORDERED: TORSEMIDE 20 MG TABLET PO ONE (21:00)
[2016-12-03] MEDS: ATORVASTATIN CALCIUM 20 MG TABLET PO SCH (21:11)
[2016-12-03] MEDS: ANASTROZOLE 1 MG TABLET PO SCH (21:12)
[2016-12-03] MEDS: ISOSORBIDE MONONITRATE 30 MG TAB.ER.24H PO SCH (21:20)
[2016-12-03] MEDS: GABAPENTIN 300 MG CAPSULE PO SCH (21:24)
[2016-12-04 05:33] LABS: ANION GAP 12 (5-19); BLOOD UREA NITROGEN 77 mg/dL (7-20); CALCIUM 10.1 mg/dL (8.4-10.2); CARBON DIOXIDE 34 mmol/L (22-30); CHLORIDE 88 mmol/L (98-107); CREATININE RESULT 2.06 mg/dL (0.52-1.25); GLUCOSE 187 mg/dL (75-110); POTASSIUM 3.7 mmol/L (3.6-5.0); SODIUM 134.3 mmol/L (137-145)
[2016-12-04] MEDS: LANSOPRAZOLE 30 MG TAB.RAP.DR PO SCH ×2 (05:36→17:20)
[2016-12-04] MEDS: HYDROCODONE/ACETAMINOPHEN 10-325 MG TABLET PO PRN ×3 (06:14→21:32)
[2016-12-04] MEDS: INSULIN LISPRO 100 UNIT/ML 3 ML VIAL SUBCUT PRN ×4 (09:03→21:33)
[2016-12-04] MEDS: METOLAZONE 2.5 MG TABLET PO SCH (09:04)
[2016-12-04] MEDS: ALLOPURINOL 100 MG TABLET PO SCH (09:04)
[2016-12-04] MEDS: TORSEMIDE 20 MG TABLET PO SCH ×2 (09:04→17:19)
[2016-12-04] MEDS: PAROXETINE HCL 20 MG TABLET PO SCH (09:05)
[2016-12-04] MEDS: ASPIRIN 81 MG TABLET, ENT COATED PO SCH (09:05)
[2016-12-04] MEDS: MAGNESIUM OXIDE 400 MG TABLET PO SCH ×3 (09:05→17:19)
[2016-12-04] MEDS: OMEGA-3 ACID ETHYL ESTERS 1 GM CAPSULE PO SCH ×2 (09:06→17:19)
[2016-12-04] MEDS: POTASSIUM CHLORIDE 10 MEQ TABLET.SA PO SCH ×2 (09:06→21:32)
[2016-12-04] MEDS: DILTIAZEM HCL 240 MG CAPSULE.CR PO SCH ×2 (09:06→21:31)
[2016-12-04] MEDS: SODIUM CHLORIDE NASAL SPRAY 44 ML NASL SCH ×4 (09:08→21:36)
[2016-12-04] MEDS ORDERED: INSULIN GLARGINE,HUM.REC.ANLOG 1,000 UNIT/10 ML UNIT SUBCUT SCH (11:30)
[2016-12-04] MEDS ORDERED: INSULIN GLARGINE,HUM.REC.ANLOG 300 UNIT/3 ML INSULN.PEN SUBCUT ONE (13:00)
--- NOTE | 2016-12-04 16:24 | PDOC PROGRESS REPORT ---
Subjective Progress Note for:: 12/04/16 Subjective:: Patient continues to slowly improve. Her breathing is much better. She continues to make good amount of urine output on oral torsemide. She doesn't feel abdominal fullness anymore. She is eating better. Physical Exam Vital Signs: Temp Pulse Resp BP Pulse Ox 97.5 F 67 20 152/63 H 97 12/04/16 07:42 12/04/16 14:00 12/04/16 07:42 12/04/16 07:42 12/04/16 07:42 Intake & Output 12/03/16 12/04/16 12/05/16 06:59 06:59 06:59 Intake Total 1409 1516 414 Output Total 1625 2725 1060 Balance -216 -1209 -646 Weight 78.4 kg 78.5 kg Exam: General appearance: PRESENT: no acute distress, cooperative, well-developed, well-nourished Head exam: PRESENT: atraumatic, normocephalic Eye exam: PRESENT: conjunctiva pale, PERRLA. ABSENT: scleral icterus Neck exam: ABSENT: JVD Respiratory exam: PRESENT: Diminished breath sounds. Bibasal crackles ABSENT: rhonchi, unlabored, wheezes Cardiovascular exam: PRESENT: Regular rate rhythm -+S1, +S2. ABSENT: diastolic murmur, systolic murmur GI/Abdominal exam: PRESENT: normal bowel sounds, soft. ABSENT: guarding, mass, tenderness Extremities exam: Grade 1 bilateral pitting edema more on the ankles and feet Neurological exam: PRESENT: alert, awake, oriented to person, place and time. Skin exam: PRESENT: dry, warm, Results Laboratory Results: 12/03/16 05:28 12/04/16 04:09 12/04/16 04:09 Sodium 134.3 L Potassium 3.7 Chloride 88 L Carbon Dioxide 34 H Anion Gap 12 BUN 77 H Creatinine 2.06 H Est GFR ( Amer) 28 L Est GFR (Non-Af Amer) 23 L Glucose 187 H Calcium 10.1 11/30/16 16:45 Stool - Stool - Final 11/30/16 16:45 Stool - Stool Stool Culture - Final 11/28/16 11/28/16 11/28/16 11:15 11:15 11:15 Creatine Kinase < 20 L CK-MB (CK-2) 0.51 Troponin I 0.077 NT-Pro-B Natriuret Pep 1730 H 11/28/16 11/28/16 11/28/16 17:12 17:12 23:10 Creatine Kinase 23 L 23 L CK-MB (CK-2) 1.01 Troponin I 0.284 NT-Pro-B Natriuret Pep 11/28/16 11/29/16 11/29/16 23:10 11:30 11:30 Creatine Kinase 22 L CK-MB (CK-2) 0.82 0.53 Troponin I 0.684 0.376 NT-Pro-B Natriuret Pep Impressions: Abdomen/Pelvis CT 11/25/16 07:56 IMPRESSION: Diverticulosis. No acute findings. Chest X-Ray 12/02/16 06:00 IMPRESSION: Stable basilar opacity-effusion. Assessment & Plan - Diagnosis (1) Acute kidney injury superimposed on chronic kidney disease Is this a current diagnosis for this admission?: YesPlan: Due to multiple prerenal factors with baseline cardiorenal syndrome. Kidney function is currently now almost at baseline. Continue current dose of torsemide. Continue metolazone. Continue to monitor kidney function. I talked to the patient that we need to possibly remove her Ramon catheter soon. We can probably try to remove the catheter tomorrow. (2) CHF (congestive heart failure) Qualifiers: Congestive heart failure type: diastolic Congestive heart failure chronicity: chronic Qualified Code(s): I50.32 - Chronic diastolic ( congestive) heart failure Is this a current diagnosis for this admission?: YesPlan: Improved. (3) Acute respiratory failure with hypoxia Is this a current diagnosis for this admission?: YesPlan: Resolved. (4) Anemia of chronic disease Is this a current diagnosis for this admission?: YesPlan: Procrit was given last Friday. (5) Chronic kidney disease, stage IV (severe) Is this a current diagnosis for this admission?: YesPlan: Due to cardiorenal syndrome. (6) Diabetes mellitus type 2 Is this a current diagnosis for this admission?: Yes (7) Diverticulitis large intestine Qualifiers: Diverticulitis bleeding: with bleeding Is this a current diagnosis for this admission?: Yes (8) Hypertension Qualifiers: Hypertension type: essential hypertension Qualified Code(s): I10 - Essential (primary) hypertension Is this a current diagnosis for this admission?: YesPlan: Well controlled. (9) Lower GI bleeding Is this a current diagnosis for this admission?: YesPlan: Resolved. - Time Time with patient: 15-25 minutes
--- NOTE | 2016-12-04 17:12 | PDOC PROGRESS REPORT ---
Subjective Progress Note for:: 12/04/16 Subjective:: Patient denies any shortness of breath, chest pain, chills or fever, nausea or vomiting, PND or orthopnea. Edema is less. Reportedly her blood sugars has been elevated, sometimes in the 300's. Physical Exam Vital Signs: Temp Pulse Resp BP Pulse Ox 97.5 F 67 20 152/63 H 97 12/04/16 07:42 12/04/16 14:00 12/04/16 07:42 12/04/16 07:42 12/04/16 07:42 Intake & Output 12/03/16 12/04/16 12/05/16 06:59 06:59 06:59 Intake Total 1409 1516 414 Output Total 1625 2725 1060 Balance -216 -1209 -646 Weight 78.4 kg 78.5 kg General appearance: PRESENT: no acute distress, obese Head exam: PRESENT: normocephalic Eye exam: PRESENT: EOMI Mouth exam: PRESENT: moist, neck supple Neck exam: ABSENT: JVD Respiratory exam: PRESENT: clear to auscultation dion. ABSENT: rhonchi, wheezes Cardiovascular exam: PRESENT: irregular rhythm. ABSENT: gallop GI/Abdominal exam: PRESENT: hypoactive bowel sounds, soft. ABSENT: tenderness Extremities exam: PRESENT: other - Trace edema Neurological exam: PRESENT: alert, awake, oriented to situation Skin exam: PRESENT: dry, warm. ABSENT: cyanosis Results Laboratory Results: 12/03/16 05:28 12/04/16 04:09 12/04/16 04:09 Sodium 134.3 L Potassium 3.7 Chloride 88 L Carbon Dioxide 34 H Anion Gap 12 BUN 77 H Creatinine 2.06 H Est GFR ( Amer) 28 L Est GFR (Non-Af Amer) 23 L Glucose 187 H Calcium 10.1 11/30/16 16:45 Stool - Stool - Final 11/30/16 16:45 Stool - Stool Stool Culture - Final 11/28/16 11/28/16 11/28/16 11:15 11:15 11:15 Creatine Kinase < 20 L CK-MB (CK-2) 0.51 Troponin I 0.077 NT-Pro-B Natriuret Pep 1730 H 11/28/16 11/28/16 11/28/16 17:12 17:12 23:10 Creatine Kinase 23 L 23 L CK-MB (CK-2) 1.01 Troponin I 0.284 NT-Pro-B Natriuret Pep 11/28/16 11/29/16 11/29/16 23:10 11:30 11:30 Creatine Kinase 22 L CK-MB (CK-2) 0.82 0.53 Troponin I 0.684 0.376 NT-Pro-B Natriuret Pep Impressions: Abdomen/Pelvis CT 11/25/16 07:56 IMPRESSION: Diverticulosis. No acute findings. Chest X-Ray 12/02/16 06:00 IMPRESSION: Stable basilar opacity-effusion. Assessment & Plan - Diagnosis (1) Acute respiratory failure with hypoxia Is this a current diagnosis for this admission?: Yes (2) Diverticulitis large intestine Qualifiers: Diverticulitis bleeding: with bleeding Is this a current diagnosis for this admission?: Yes (3) GI bleed Qualifiers: GI bleed type/associated pathology: diverticulitis Qualified Code(s) : K57.93 - Diverticulitis of intestine, part unspecified, without perforation or abscess with bleeding Is this a current diagnosis for this admission?: Yes (4) Acute on chronic diastolic (congestive) heart failure Is this a current diagnosis for this admission?: Yes (5) Diabetes mellitus type 2 Is this a current diagnosis for this admission?: Yes (6) Acute kidney injury superimposed on chronic kidney disease Is this a current diagnosis for this admission?: Yes (7) Anemia of chronic disease Is this a current diagnosis for this admission?: Yes (8) Chronic kidney disease, stage IV (severe) Is this a current diagnosis for this admission?: Yes (9) Coronary artery disease Qualifiers: Coronary Disease-Associated Artery/Lesion type: [place] artery [place] vs. transplanted heart: [place] heart Associated angina: without angina Qualified Code(s): I25.10 - Atherosclerotic heart disease of [place] coronary artery without angina pectoris Is this a current diagnosis for this admission?: Yes (10) Valvular heart disease Is this a current diagnosis for this admission?: Yes (11) GERD (gastroesophageal reflux disease) Qualifiers: Esophagitis presence: without esophagitis Qualified Code(s): K21.9 - Gastro-esophageal reflux disease without esophagitis Is this a current diagnosis for this admission?: Yes (12) Essential hypertension Is this a current diagnosis for this admission?: Yes (13) Gout Qualifiers: Gout site: unspecified site Gout etiology: unspecified cause Chronicity: unspecified Qualified Code(s): M10.9 - Gout, unspecified Is this a current diagnosis for this admission?: Yes (14) History of stroke Is this a current diagnosis for this admission?: Yes - Time Time Spent with patient: 25-34 minutes - Plan Summary Plan Summary: We are going to continue monitoring creatinine. Seems to be improving. Diuretics to continue as per nephrology service. In the meantime I will begin the patient on Lantus instead of NPH nor 7030 insulin. We will begin at 20 units during the day and monitor for hypoglycemia. Patient used to take more than 80 units of insulin daily. We will continue to monitor. Patient still wants to continue the Ramon catheter.
[2016-12-04] MEDS: PHARMACY COMMUNICATION ORDER MC SCH (17:20)
[2016-12-04] MEDS: ONDANSETRON HCL INJ/PF 4 MG/2 ML SDV IV PRN (19:10)
[2016-12-04] MEDS: ISOSORBIDE MONONITRATE 30 MG TAB.ER.24H PO SCH (21:31)
[2016-12-04] MEDS: ATORVASTATIN CALCIUM 20 MG TABLET PO SCH (21:32)
[2016-12-04] MEDS: GABAPENTIN 300 MG CAPSULE PO SCH (21:32)
[2016-12-04] MEDS: ANASTROZOLE 1 MG TABLET PO SCH (21:33)
[2016-12-04] MEDS: SIMETHICONE 80 MG TAB.CHEW PO PRN (21:35)
[2016-12-05 05:04] LABS: ABSOLUTE BASOPHILS # (AUTO) 0.1 10^3/uL (0.0-0.2); ABSOLUTE EOSINOPHILS # (AUTO) 0.2 10^3/uL (0.0-0.6); ABSOLUTE LYMPHOCYTES (AUTO) 0.7 10^3/uL (0.5-4.7); ABSOLUTE MONOCYTES (AUTO) 0.4 10^3/uL (0.1-1.4); ABSOLUTE NEUT (AUTO) 5.3 10^3/uL (1.7-8.2); BASOPHILS % (AUTO) 1.3 % (0-2); EOSINOPHILS % (AUTO) 2.6 % (0-6); HEMOGLOBIN 9.9 g/dL (12.0-15.5); HGB HCT DIFFERENCE 0.7; LYMPHOCYTES % (AUTO) 10.7 % (13-45); MEAN CORPUSCULAR HEMOGLOBIN 30.7 pg (27.0-33.4); MEAN CORPUSCULAR HGB CONC 34.2 g/dL (32.0-36.0); MEAN CORPUSCULAR VOLUME 90 fl (80-97); RED BLOOD COUNT 3.22 10^6/uL (3.72-5.28); RED CELL DISTRIBUTION WIDTH 15.8 % (11.5-14.0); SEGMENTED NEUTROPHILS % (AUTO) 79.4 % (42-78); WHITE BLOOD COUNT 6.7 10^3/uL (4.0-10.5)
[2016-12-05 05:19] LABS: ANION GAP 10 (5-19); BLOOD UREA NITROGEN 75 mg/dL (7-20); CALCIUM 10.2 mg/dL (8.4-10.2); CARBON DIOXIDE 37 mmol/L (22-30); CHLORIDE 86 mmol/L (98-107); CREATININE RESULT 1.75 mg/dL (0.52-1.25); GLUCOSE 201 mg/dL (75-110); POTASSIUM 3.7 mmol/L (3.6-5.0); SODIUM 133.2 mmol/L (137-145)
[2016-12-05] MEDS: LANSOPRAZOLE 30 MG TAB.RAP.DR PO SCH ×2 (06:00→18:13)
[2016-12-05] MEDS: ALLOPURINOL 100 MG TABLET PO SCH (09:45)
[2016-12-05] MEDS: MAGNESIUM OXIDE 400 MG TABLET PO SCH ×3 (09:45→18:15)
[2016-12-05] MEDS: ASPIRIN 81 MG TABLET, ENT COATED PO SCH (09:45)
[2016-12-05] MEDS: PAROXETINE HCL 20 MG TABLET PO SCH (09:45)
[2016-12-05] MEDS: METOLAZONE 2.5 MG TABLET PO SCH (09:45)
[2016-12-05] MEDS: TORSEMIDE 20 MG TABLET PO SCH ×2 (09:46→18:14)
[2016-12-05] MEDS: POTASSIUM CHLORIDE 10 MEQ TABLET.SA PO SCH ×2 (09:46→20:34)
[2016-12-05] MEDS: DILTIAZEM HCL 240 MG CAPSULE.CR PO SCH ×2 (09:47→20:33)
[2016-12-05] MEDS: SODIUM CHLORIDE NASAL SPRAY 44 ML NASL SCH ×4 (09:47→20:53)
[2016-12-05] MEDS: OMEGA-3 ACID ETHYL ESTERS 1 GM CAPSULE PO SCH ×2 (09:47→18:15)
--- NOTE | 2016-12-05 09:59 | PDOC PROGRESS REPORT ---
Subjective Progress Note for:: 12/05/16 Subjective:: Swelling is getting better. Denies chest pain or shortness of breath. No PND or orthopnea. No diarrhea. No chills or fever. No abdominal pain. Physical Exam Vital Signs: Temp Pulse Resp BP Pulse Ox 98.7 F 58 L 16 158/56 H 94 12/05/16 07:24 12/05/16 07:24 12/05/16 07:24 12/05/16 07:24 12/05/16 07:24 Intake & Output 12/04/16 12/05/16 12/06/16 06:59 06:59 06:59 Intake Total 1516 1423 Output Total 2725 6960 Balance -1209 -2064 Weight 78.5 kg 78.3 kg General appearance: PRESENT: no acute distress, cooperative, obese Head exam: PRESENT: normocephalic Eye exam: PRESENT: EOMI Mouth exam: PRESENT: moist, neck supple Neck exam: ABSENT: JVD Respiratory exam: PRESENT: clear to auscultation dion. ABSENT: rhonchi, wheezes Cardiovascular exam: PRESENT: RRR, systolic murmur - Left sternal border. ABSENT: gallop GI/Abdominal exam: PRESENT: normal bowel sounds, soft. ABSENT: distended, tenderness Extremities exam: PRESENT: other - Lower extremity edema trace Neurological exam: PRESENT: alert, awake, oriented to situation Results Laboratory Results: 12/05/16 04:11 12/05/16 04:11 12/05/16 12/05/16 04:11 04:11 WBC 6.7 RBC 3.22 L Hgb 9.9 L Hct 29.0 L MCV 90 MCH 30.7 MCHC 34.2 RDW 15.8 H Plt Count 205 Seg Neutrophils % 79.4 H Lymphocytes % 10.7 L Monocytes % 6.0 Eosinophils % 2.6 Basophils % 1.3 Absolute Neutrophils 5.3 Absolute Lymphocytes 0.7 Absolute Monocytes 0.4 Absolute Eosinophils 0.2 Absolute Basophils 0.1 Sodium 133.2 L Potassium 3.7 Chloride 86 L Carbon Dioxide 37 H Anion Gap 10 BUN 75 H Creatinine 1.75 H Est GFR ( Amer) 34 L Est GFR (Non-Af Amer) 28 L Glucose 201 H Calcium 10.2 11/28/16 11/28/16 11/28/16 11:15 11:15 11:15 Creatine Kinase < 20 L CK-MB (CK-2) 0.51 Troponin I 0.077 NT-Pro-B Natriuret Pep 1730 H 11/28/16 11/28/16 11/28/16 17:12 17:12 23:10 Creatine Kinase 23 L 23 L CK-MB (CK-2) 1.01 Troponin I 0.284 NT-Pro-B Natriuret Pep 11/28/16 11/29/16 11/29/16 23:10 11:30 11:30 Creatine Kinase 22 L CK-MB (CK-2) 0.82 0.53 Troponin I 0.684 0.376 NT-Pro-B Natriuret Pep Impressions: Abdomen/Pelvis CT 11/25/16 07:56 IMPRESSION: Diverticulosis. No acute findings. Chest X-Ray 12/02/16 06:00 IMPRESSION: Stable basilar opacity-effusion. Assessment & Plan - Diagnosis (1) Acute respiratory failure with hypoxia Is this a current diagnosis for this admission?: Yes (2) Diverticulitis large intestine Qualifiers: Diverticulitis bleeding: with bleeding Is this a current diagnosis for this admission?: Yes (3) GI bleed Qualifiers: GI bleed type/associated pathology: diverticulitis Qualified Code(s) : K57.93 - Diverticulitis of intestine, part unspecified, without perforation or abscess with bleeding Is this a current diagnosis for this admission?: Yes (4) Acute on chronic diastolic (congestive) heart failure Is this a current diagnosis for this admission?: Yes (5) Diabetes mellitus type 2 Is this a current diagnosis for this admission?: Yes (6) Acute kidney injury superimposed on chronic kidney disease Is this a current diagnosis for this admission?: Yes (7) Anemia of chronic disease Is this a current diagnosis for this admission?: Yes (8) Chronic kidney disease, stage IV (severe) Is this a current diagnosis for this admission?: Yes (9) Coronary artery disease Qualifiers: Coronary Disease-Associated Artery/Lesion type: [place] artery [place] vs. transplanted heart: [place] heart Associated angina: without angina Qualified Code(s): I25.10 - Atherosclerotic heart disease of [place] coronary artery without angina pectoris Is this a current diagnosis for this admission?: Yes (10) Valvular heart disease Is this a current diagnosis for this admission?: Yes (11) GERD (gastroesophageal reflux disease) Qualifiers: Esophagitis presence: without esophagitis Qualified Code(s): K21.9 - Gastro-esophageal reflux disease without esophagitis Is this a current diagnosis for this admission?: Yes (12) Essential hypertension Is this a current diagnosis for this admission?: Yes (13) Gout Qualifiers: Gout site: unspecified site Gout etiology: unspecified cause Chronicity: unspecified Qualified Code(s): M10.9 - Gout, unspecified Is this a current diagnosis for this admission?: Yes (14) History of stroke Is this a current diagnosis for this admission?: Yes - Time Time Spent with patient: Less than 15 minutes - Plan Summary Plan Summary: And is clinically improved. Continue current medications. Monitor electrolytes and creatinine. We will plan discharge when cleared by cardiology and nephrology services.
[2016-12-05] MEDS ORDERED: INSULIN GLARGINE,HUM.REC.ANLOG 300 UNIT/3 ML INSULN.PEN SUBCUT SCH (10:00)
[2016-12-05] MEDS: INSULIN LISPRO 100 UNIT/ML 3 ML VIAL SUBCUT PRN ×3 (12:00→23:30)
[2016-12-05] MEDS: ONDANSETRON HCL INJ/PF 4 MG/2 ML SDV IV PRN (12:39)
--- NOTE | 2016-12-05 18:32 | PDOC PROGRESS REPORT ---
Subjective Progress Note for:: 12/05/16 Subjective:: Patient continues to do better. Her blood sugars is being managed by Dr. Alvarado. She is in physical therapy and is able to walk. She continues to make good amount of urine. Her blood pressure is rising a little bit dull. Physical Exam Vital Signs: Temp Pulse Resp BP Pulse Ox 98.6 F 61 20 172/57 H 94 12/05/16 16:11 12/05/16 16:11 12/05/16 16:11 12/05/16 16:11 12/05/16 16:11 Intake & Output 12/04/16 12/05/16 12/06/16 06:59 06:59 06:59 Intake Total 1516 1423 577 Output Total 2725 3500 1850 Balance -1209 -2847 -1273 Weight 78.5 kg 78.3 kg Exam: General appearance: PRESENT: no acute distress, cooperative, well-developed, well-nourished Head exam: PRESENT: atraumatic, normocephalic Eye exam: PRESENT: conjunctiva pale, PERRLA. ABSENT: scleral icterus Neck exam: ABSENT: JVD Respiratory exam: PRESENT: Diminished breath sounds. Bibasilar crackles ABSENT : rhonchi, unlabored, wheezes Cardiovascular exam: PRESENT: Regular rate rhythm -+S1, +S2. Grade 3/6, systolic murmur GI/Abdominal exam: PRESENT: normal bowel sounds, soft. ABSENT: guarding, mass, tenderness Extremities exam: ABSENT: No edema Neurological exam: PRESENT: alert, awake, oriented to person, place and time. Skin exam: PRESENT: dry, warm, Results Laboratory Results: 12/05/16 04:11 12/05/16 04:11 12/05/16 12/05/16 04:11 04:11 WBC 6.7 RBC 3.22 L Hgb 9.9 L Hct 29.0 L MCV 90 MCH 30.7 MCHC 34.2 RDW 15.8 H Plt Count 205 Seg Neutrophils % 79.4 H Lymphocytes % 10.7 L Monocytes % 6.0 Eosinophils % 2.6 Basophils % 1.3 Absolute Neutrophils 5.3 Absolute Lymphocytes 0.7 Absolute Monocytes 0.4 Absolute Eosinophils 0.2 Absolute Basophils 0.1 Sodium 133.2 L Potassium 3.7 Chloride 86 L Carbon Dioxide 37 H Anion Gap 10 BUN 75 H Creatinine 1.75 H Est GFR ( Amer) 34 L Est GFR (Non-Af Amer) 28 L Glucose 201 H Calcium 10.2 11/28/16 11/28/16 11/28/16 11:15 11:15 11:15 Creatine Kinase < 20 L CK-MB (CK-2) 0.51 Troponin I 0.077 NT-Pro-B Natriuret Pep 1730 H 11/28/16 11/28/16 11/28/16 17:12 17:12 23:10 Creatine Kinase 23 L 23 L CK-MB (CK-2) 1.01 Troponin I 0.284 NT-Pro-B Natriuret Pep 11/28/16 11/29/16 11/29/16 23:10 11:30 11:30 Creatine Kinase 22 L CK-MB (CK-2) 0.82 0.53 Troponin I 0.684 0.376 NT-Pro-B Natriuret Pep Impressions: Abdomen/Pelvis CT 11/25/16 07:56 IMPRESSION: Diverticulosis. No acute findings. Chest X-Ray 12/02/16 06:00 IMPRESSION: Stable basilar opacity-effusion. Assessment & Plan - Diagnosis (1) Acute kidney injury superimposed on chronic kidney disease Is this a current diagnosis for this admission?: YesPlan: Due to multiple prerenal factors with baseline cardiorenal syndrome. Kidney function is currently now at baseline. Continue current dose of torsemide. Continue metolazone. Continue to monitor kidney function. We will remove Ramon catheter tonight. (2) CHF (congestive heart failure) Qualifiers: Congestive heart failure type: diastolic Congestive heart failure chronicity: chronic Qualified Code(s): I50.32 - Chronic diastolic ( congestive) heart failure Is this a current diagnosis for this admission?: YesPlan: Improved. (3) Acute respiratory failure with hypoxia Is this a current diagnosis for this admission?: YesPlan: Resolved. (4) Anemia of chronic disease Is this a current diagnosis for this admission?: YesPlan: Procrit was given last Friday, . (5) Chronic kidney disease, stage IV (severe) Is this a current diagnosis for this admission?: YesPlan: Due to cardiorenal syndrome. (6) Diabetes mellitus type 2 Is this a current diagnosis for this admission?: YesPlan: Defer to hospitalist service. (7) Diverticulitis large intestine Qualifiers: Diverticulitis bleeding: with bleeding Is this a current diagnosis for this admission?: Yes (8) Hypertension Qualifiers: Hypertension type: essential hypertension Qualified Code(s): I10 - Essential (primary) hypertension Is this a current diagnosis for this admission?: YesPlan: Resume losartan 100 mg by mouth daily, first dose now. (9) Lower GI bleeding Is this a current diagnosis for this admission?: YesPlan: Resolved. - Time Time with patient: 15-25 minutes
[2016-12-05] MEDS ORDERED: LOSARTAN POTASSIUM 50 MG TABLET PO ONE (19:30)
[2016-12-05] MEDS: ISOSORBIDE MONONITRATE 30 MG TAB.ER.24H PO SCH (20:34)
[2016-12-05] MEDS: HYDROCODONE/ACETAMINOPHEN 10-325 MG TABLET PO PRN (20:34)
[2016-12-05] MEDS: GABAPENTIN 300 MG CAPSULE PO SCH (20:34)
[2016-12-05] MEDS: ANASTROZOLE 1 MG TABLET PO SCH (20:38)
[2016-12-05] MEDS: ATORVASTATIN CALCIUM 20 MG TABLET PO SCH (20:53)
[2016-12-06] MEDS: LANSOPRAZOLE 30 MG TAB.RAP.DR PO SCH ×2 (05:52→17:30)
[2016-12-06 05:55] LABS: ANION GAP 11 (5-19); BLOOD UREA NITROGEN 63 mg/dL (7-20); CALCIUM 10.2 mg/dL (8.4-10.2); CARBON DIOXIDE 38 mmol/L (22-30); CHLORIDE 86 mmol/L (98-107); CREATININE RESULT 1.74 mg/dL (0.52-1.25); GLUCOSE 173 mg/dL (75-110); POTASSIUM 3.2 mmol/L (3.6-5.0); SODIUM 134.5 mmol/L (137-145)
[2016-12-06] MEDS: SODIUM CHLORIDE NASAL SPRAY 44 ML NASL SCH ×4 (09:16→21:18)
[2016-12-06] MEDS: INSULIN LISPRO 100 UNIT/ML 3 ML VIAL SUBCUT PRN ×4 (09:16→21:46)
[2016-12-06] MEDS: PAROXETINE HCL 20 MG TABLET PO SCH (09:16)
--- NOTE | 2016-12-06 10:10 | PDOC PROGRESS REPORT ---
Subjective Progress Note for:: 12/06/16 Subjective:: Patient is feeling better this morning. Ramon catheter is out and able to void freely. Denies any chills or fever. No nausea or vomiting or rectal bleeding. Blood sugar reportedly uncontrolled. No PND or orthopnea, no shortness of breath, lower extremity swelling is better. Does not want to go home yet. Physical Exam Vital Signs: Temp Pulse Resp BP Pulse Ox 97.7 F 56 L 16 143/97 H 100 12/06/16 07:33 12/06/16 07:33 12/06/16 07:33 12/06/16 07:33 12/06/16 07:33 Intake & Output 12/05/16 12/06/16 12/07/16 06:59 06:59 06:59 Intake Total 1423 907 Output Total 3500 2150 Balance -2076 -1242 Weight 78.3 kg 74.7 kg General appearance: PRESENT: no acute distress, cooperative, obese Head exam: PRESENT: normocephalic Eye exam: PRESENT: EOMI Mouth exam: PRESENT: moist, neck supple Neck exam: ABSENT: JVD Respiratory exam: PRESENT: clear to auscultation dion - Anteriorly bilateral, rales - Posteriorly lower lung briggs. ABSENT: wheezes Cardiovascular exam: PRESENT: RRR. ABSENT: gallop GI/Abdominal exam: PRESENT: soft. ABSENT: distended, tenderness Extremities exam: PRESENT: other - Trace lower extremity edema Neurological exam: PRESENT: alert, awake, oriented to situation Skin exam: PRESENT: dry, warm. ABSENT: cyanosis Results Laboratory Results: 12/05/16 04:11 12/06/16 04:41 12/06/16 04:41 Sodium 134.5 L Potassium 3.2 L Chloride 86 L Carbon Dioxide 38 H Anion Gap 11 BUN 63 H Creatinine 1.74 H Est GFR ( Amer) 34 L Est GFR (Non-Af Amer) 28 L Glucose 173 H Calcium 10.2 11/28/16 11/28/16 11/28/16 11:15 11:15 11:15 Creatine Kinase < 20 L CK-MB (CK-2) 0.51 Troponin I 0.077 NT-Pro-B Natriuret Pep 1730 H 11/28/16 11/28/16 11/28/16 17:12 17:12 23:10 Creatine Kinase 23 L 23 L CK-MB (CK-2) 1.01 Troponin I 0.284 NT-Pro-B Natriuret Pep 11/28/16 11/29/16 11/29/16 23:10 11:30 11:30 Creatine Kinase 22 L CK-MB (CK-2) 0.82 0.53 Troponin I 0.684 0.376 NT-Pro-B Natriuret Pep Impressions: Abdomen/Pelvis CT 11/25/16 07:56 IMPRESSION: Diverticulosis. No acute findings. Chest X-Ray 12/02/16 06:00 IMPRESSION: Stable basilar opacity-effusion. Assessment & Plan - Diagnosis (1) Acute respiratory failure with hypoxia Is this a current diagnosis for this admission?: Yes (2) Diverticulitis large intestine Qualifiers: Diverticulitis bleeding: with bleeding Is this a current diagnosis for this admission?: Yes (3) GI bleed Qualifiers: GI bleed type/associated pathology: diverticulitis Qualified Code(s) : K57.93 - Diverticulitis of intestine, part unspecified, without perforation or abscess with bleeding Is this a current diagnosis for this admission?: Yes (4) Acute on chronic diastolic (congestive) heart failure Is this a current diagnosis for this admission?: Yes (5) Diabetes mellitus type 2 Is this a current diagnosis for this admission?: Yes (6) Acute kidney injury superimposed on chronic kidney disease Is this a current diagnosis for this admission?: Yes (7) Anemia of chronic disease Is this a current diagnosis for this admission?: Yes (8) Chronic kidney disease, stage IV (severe) Is this a current diagnosis for this admission?: Yes (9) Coronary artery disease Qualifiers: Coronary Disease-Associated Artery/Lesion type: [place] artery [place] vs. transplanted heart: [place] heart Associated angina: without angina Qualified Code(s): I25.10 - Atherosclerotic heart disease of [place] coronary artery without angina pectoris Is this a current diagnosis for this admission?: Yes (10) Valvular heart disease Is this a current diagnosis for this admission?: Yes (11) GERD (gastroesophageal reflux disease) Qualifiers: Esophagitis presence: without esophagitis Qualified Code(s): K21.9 - Gastro-esophageal reflux disease without esophagitis Is this a current diagnosis for this admission?: Yes (12) Essential hypertension Is this a current diagnosis for this admission?: Yes (13) Gout Qualifiers: Gout site: unspecified site Gout etiology: unspecified cause Chronicity: unspecified Qualified Code(s): M10.9 - Gout, unspecified Is this a current diagnosis for this admission?: Yes (14) History of stroke Is this a current diagnosis for this admission?: Yes - Time Time Spent with patient: 25-34 minutes - Plan Summary Plan Summary: Blood sugars remain uncontrolled. I will increase the Lantus. Creatinine seems to have stabilized, continue higher diuretic dose. We will recheck creatinine in the morning. Discussed case with Dr. Jewell, patient cleared from his standpoint, no further recommendations were made. Continue supportive care.
[2016-12-06] MEDS: ASPIRIN 81 MG TABLET, ENT COATED PO SCH (11:10)
[2016-12-06] MEDS: ALLOPURINOL 100 MG TABLET PO SCH (11:10)
[2016-12-06] MEDS: DILTIAZEM HCL 240 MG CAPSULE.CR PO SCH ×2 (11:11→21:10)
[2016-12-06] MEDS: MAGNESIUM OXIDE 400 MG TABLET PO SCH ×3 (11:11→17:30)
[2016-12-06] MEDS: LOSARTAN POTASSIUM 50 MG TABLET PO SCH (11:11)
[2016-12-06] MEDS: POTASSIUM CHLORIDE 10 MEQ TABLET.SA PO SCH ×2 (11:11→21:10)
[2016-12-06] MEDS: OMEGA-3 ACID ETHYL ESTERS 1 GM CAPSULE PO SCH ×2 (11:11→17:30)
[2016-12-06] MEDS: METOLAZONE 2.5 MG TABLET PO SCH ×2 (11:12→14:46)
[2016-12-06] MEDS: TORSEMIDE 20 MG TABLET PO SCH ×2 (11:12→17:30)
--- NOTE | 2016-12-06 13:45 | PDOC PROGRESS REPORT ---
Subjective Progress Note for:: 12/06/16 Subjective:: Patient is doing well. We remove her Ramon catheter last night and she is voiding spontaneously on her own without problems. She is on physical therapy as well. She doesn't have any other new complaints. Physical Exam Vital Signs: Temp Pulse Resp BP Pulse Ox 97.3 F 60 20 167/51 H 98 12/06/16 11:59 12/06/16 11:59 12/06/16 11:59 12/06/16 11:59 12/06/16 11:59 Intake & Output 12/05/16 12/06/16 12/07/16 06:59 06:59 06:59 Intake Total 1423 907 592 Output Total 3500 2150 Balance -7 -3 592 Weight 78.3 kg 74.7 kg Exam: General appearance: PRESENT: no acute distress, cooperative, well-developed, well-nourished Head exam: PRESENT: atraumatic, normocephalic Eye exam: PRESENT: conjunctiva pale, PERRLA. ABSENT: scleral icterus Neck exam: ABSENT: JVD Respiratory exam: PRESENT: Diminished breath sounds. Bibasilar crackles ABSENT : rhonchi, unlabored, wheezes Cardiovascular exam: PRESENT: Regular rate rhythm -+S1, +S2. Grade 3/6 systolic murmur GI/Abdominal exam: PRESENT: normal bowel sounds, soft. ABSENT: guarding, mass, tenderness Extremities exam: ABSENT: No edema Neurological exam: PRESENT: Currently asleep but can be aroused, oriented to person, place and time. Skin exam: PRESENT: dry, warm, Results Laboratory Results: 12/05/16 04:11 12/06/16 04:41 12/06/16 04:41 Sodium 134.5 L Potassium 3.2 L Chloride 86 L Carbon Dioxide 38 H Anion Gap 11 BUN 63 H Creatinine 1.74 H Est GFR ( Amer) 34 L Est GFR (Non-Af Amer) 28 L Glucose 173 H Calcium 10.2 11/28/16 11/28/16 11/28/16 11:15 11:15 11:15 Creatine Kinase < 20 L CK-MB (CK-2) 0.51 Troponin I 0.077 NT-Pro-B Natriuret Pep 1730 H 11/28/16 11/28/16 11/28/16 17:12 17:12 23:10 Creatine Kinase 23 L 23 L CK-MB (CK-2) 1.01 Troponin I 0.284 NT-Pro-B Natriuret Pep 11/28/16 11/29/16 11/29/16 23:10 11:30 11:30 Creatine Kinase 22 L CK-MB (CK-2) 0.82 0.53 Troponin I 0.684 0.376 NT-Pro-B Natriuret Pep Impressions: Abdomen/Pelvis CT 11/25/16 07:56 IMPRESSION: Diverticulosis. No acute findings. Chest X-Ray 12/02/16 06:00 IMPRESSION: Stable basilar opacity-effusion. Assessment & Plan - Diagnosis (1) Acute kidney injury superimposed on chronic kidney disease Is this a current diagnosis for this admission?: YesPlan: Due to multiple prerenal factors with baseline cardiorenal syndrome. Resolved and kidney function is currently now at baseline. Continue current dose of torsemide. Continue metolazone to be given 30-60 minutes prior to torsemide dose in the morning. Continue to monitor kidney function. Monitor intake and output. (2) CHF (congestive heart failure) Qualifiers: Congestive heart failure type: diastolic Congestive heart failure chronicity: chronic Qualified Code(s): I50.32 - Chronic diastolic ( congestive) heart failure Is this a current diagnosis for this admission?: YesPlan: Improved. Currently compensated. (3) Acute respiratory failure with hypoxia Is this a current diagnosis for this admission?: YesPlan: Resolved. (4) Anemia of chronic disease Is this a current diagnosis for this admission?: YesPlan: Procrit was given last Friday, . We'll give another dose of Procrit 20,000 units today. (5) Chronic kidney disease, stage IV (severe) Is this a current diagnosis for this admission?: YesPlan: Due to cardiorenal syndrome. (6) Diabetes mellitus type 2 Is this a current diagnosis for this admission?: YesPlan: Defer to hospitalist service. (7) Diverticulitis large intestine Qualifiers: Diverticulitis bleeding: with bleeding Is this a current diagnosis for this admission?: Yes (8) Hypertension Qualifiers: Hypertension type: essential hypertension Qualified Code(s): I10 - Essential (primary) hypertension Is this a current diagnosis for this admission?: YesPlan: Improved today. Continue current medications. (9) Lower GI bleeding Is this a current diagnosis for this admission?: YesPlan: Resolved. - Notes Notes: Patient likely me some home health nurse and outpatient or home physical therapy upon discharge. - Time Time with patient: 15-25 minutes
[2016-12-06] MEDS ORDERED: EPOETIN ALFA INJ 20000 UNIT/1 ML VIAL (RENAL) SUBCUT ONE (15:00)
[2016-12-06 20:59] LABS: ANION GAP 14 (5-19); BLOOD UREA NITROGEN 62 mg/dL (7-20); CALCIUM 10.2 mg/dL (8.4-10.2); CARBON DIOXIDE 36 mmol/L (22-30); CHLORIDE 83 mmol/L (98-107); CREATININE RESULT 1.62 mg/dL (0.52-1.25); GLUCOSE 237 mg/dL (75-110); MAGNESIUM 1.3 mg/dL (1.6-2.3); POTASSIUM 3.9 mmol/L (3.6-5.0); SODIUM 132.6 mmol/L (137-145)
[2016-12-06] MEDS: GABAPENTIN 300 MG CAPSULE PO SCH (21:09)
[2016-12-06] MEDS: ATORVASTATIN CALCIUM 20 MG TABLET PO SCH (21:10)
[2016-12-06] MEDS: ISOSORBIDE MONONITRATE 30 MG TAB.ER.24H PO SCH (21:10)
[2016-12-06] MEDS: ANASTROZOLE 1 MG TABLET PO SCH (21:11)
[2016-12-06] MEDS: HYDROCODONE/ACETAMINOPHEN 10-325 MG TABLET PO PRN (21:12)
[2016-12-06] MEDS ORDERED: MAGNESIUM SULFATE/D5W 1 GM/100 ML RTUPB IV ONE (21:44)
--- NOTE | 2016-12-06 21:51 | EKG REPORT ---
SEVERITY:- ABNORMAL ECG - AFIB/FLUT AND V-PACED COMPLEXES RIGHT BUNDLE BRANCH BLOCK LVH WITH IVCD AND SECONDARY REPOL ABNRM : Confirmed by: Saba Chinchilla MD 06-Dec-2016 21:50:46
[2016-12-06] MEDS: MAGNESIUM SULFATE/D5W 1 GM/100 ML RTUPB IV SCH (22:28)
[2016-12-07] MEDS: MAGNESIUM SULFATE/D5W 1 GM/100 ML RTUPB IV SCH (00:36)
[2016-12-07] MEDS: LANSOPRAZOLE 30 MG TAB.RAP.DR PO SCH ×2 (06:18→17:09)
[2016-12-07 07:04] LABS: ANION GAP 13 (5-19); BLOOD UREA NITROGEN 63 mg/dL (7-20); CALCIUM 9.6 mg/dL (8.4-10.2); CARBON DIOXIDE 33 mmol/L (22-30); CHLORIDE 84 mmol/L (98-107); CREATININE RESULT 1.83 mg/dL (0.52-1.25); GLUCOSE 167 mg/dL (75-110); POTASSIUM 3.6 mmol/L (3.6-5.0); SODIUM 129.6 mmol/L (137-145)
[2016-12-07] MEDS: PAROXETINE HCL 20 MG TABLET PO SCH (08:38)
[2016-12-07] MEDS: INSULIN LISPRO 100 UNIT/ML 3 ML VIAL SUBCUT PRN ×4 (08:38→22:44)
[2016-12-07] MEDS: SODIUM CHLORIDE NASAL SPRAY 44 ML NASL SCH ×4 (08:39→21:35)
[2016-12-07] MEDS: LOSARTAN POTASSIUM 50 MG TABLET PO SCH (11:10)
[2016-12-07] MEDS: INSULIN GLARGINE,HUM.REC.ANLOG 300 UNIT/3 ML INSULN.PEN SUBCUT SCH (11:10)
[2016-12-07] MEDS: METOLAZONE 2.5 MG TABLET PO SCH (11:10)
[2016-12-07] MEDS: DILTIAZEM HCL 240 MG CAPSULE.CR PO SCH ×2 (11:10→21:25)
[2016-12-07] MEDS: ALLOPURINOL 100 MG TABLET PO SCH (11:10)
[2016-12-07] MEDS: ASPIRIN 81 MG TABLET, ENT COATED PO SCH (11:11)
[2016-12-07] MEDS: OMEGA-3 ACID ETHYL ESTERS 1 GM CAPSULE PO SCH ×2 (11:11→17:09)
[2016-12-07] MEDS: POTASSIUM CHLORIDE 10 MEQ TABLET.SA PO SCH ×2 (11:11→21:24)
[2016-12-07] MEDS: MAGNESIUM OXIDE 400 MG TABLET PO SCH ×3 (11:11→17:09)
--- NOTE | 2016-12-07 11:42 | PDOC PROGRESS REPORT ---
Subjective Progress Note for:: 12/07/16 Subjective:: Patient still reports being weak and not ready to go home at this time, but felt overall better than yesterday. Denies diarrhea no rectal bleeding. No chills or fever. No shortness of breath. No nausea or vomiting. Edema overall is less. Staff reports arrhythmia on the monitor documented A. fib and a. Flutter which is nonsustained. Physical Exam Vital Signs: Temp Pulse Resp BP Pulse Ox 97.6 F 59 L 18 139/52 H 100 12/07/16 07:23 12/07/16 07:23 12/07/16 07:23 12/07/16 07:23 12/07/16 07:23 Intake & Output 12/06/16 12/07/16 12/08/16 06:59 06:59 06:59 Intake Total 907 1243 Output Total 2150 Balance -1243 1243 Weight 74.7 kg 74.5 kg General appearance: PRESENT: no acute distress, cooperative, obese Head exam: PRESENT: normocephalic Eye exam: PRESENT: EOMI Mouth exam: PRESENT: moist, neck supple Neck exam: ABSENT: JVD Respiratory exam: PRESENT: clear to auscultation dion - Anteriorly bilateral Cardiovascular exam: PRESENT: RRR. ABSENT: gallop GI/Abdominal exam: PRESENT: normal bowel sounds, soft Extremities exam: PRESENT: other - Trace lower extremity edema Neurological exam: PRESENT: alert, awake, oriented to situation Skin exam: PRESENT: dry, warm. ABSENT: cyanosis Results Laboratory Results: 12/05/16 04:11 12/07/16 06:28 12/06/16 12/07/16 20:34 06:28 Sodium 132.6 L 129.6 L Potassium 3.9 3.6 Chloride 83 L 84 L Carbon Dioxide 36 H 33 H Anion Gap 14 13 BUN 62 H 63 H Creatinine 1.62 H 1.83 H Est GFR ( Amer) 37 L 32 L Est GFR (Non-Af Amer) 30 L 26 L Glucose 237 H 167 H Calcium 10.2 9.6 Magnesium 1.3 L 11/28/16 11/28/16 11/28/16 11:15 11:15 11:15 Creatine Kinase < 20 L CK-MB (CK-2) 0.51 Troponin I 0.077 NT-Pro-B Natriuret Pep 1730 H 11/28/16 11/28/16 11/28/16 17:12 17:12 23:10 Creatine Kinase 23 L 23 L CK-MB (CK-2) 1.01 Troponin I 0.284 NT-Pro-B Natriuret Pep 11/28/16 11/29/16 11/29/16 23:10 11:30 11:30 Creatine Kinase 22 L CK-MB (CK-2) 0.82 0.53 Troponin I 0.684 0.376 NT-Pro-B Natriuret Pep Impressions: Abdomen/Pelvis CT 11/25/16 07:56 IMPRESSION: Diverticulosis. No acute findings. Chest X-Ray 12/02/16 06:00 IMPRESSION: Stable basilar opacity-effusion. Assessment & Plan - Diagnosis (1) Acute respiratory failure with hypoxia Is this a current diagnosis for this admission?: Yes (2) Diverticulitis large intestine Qualifiers: Diverticulitis bleeding: with bleeding Is this a current diagnosis for this admission?: Yes (3) GI bleed Qualifiers: GI bleed type/associated pathology: diverticulitis Qualified Code(s) : K57.93 - Diverticulitis of intestine, part unspecified, without perforation or abscess with bleeding Is this a current diagnosis for this admission?: Yes (4) Acute on chronic diastolic (congestive) heart failure Is this a current diagnosis for this admission?: Yes (5) Diabetes mellitus type 2 Is this a current diagnosis for this admission?: Yes (6) Acute kidney injury superimposed on chronic kidney disease Is this a current diagnosis for this admission?: Yes (7) Anemia of chronic disease Is this a current diagnosis for this admission?: Yes (8) Chronic kidney disease, stage IV (severe) Is this a current diagnosis for this admission?: Yes (9) Coronary artery disease Qualifiers: Coronary Disease-Associated Artery/Lesion type: [place] artery [place] vs. transplanted heart: [place] heart Associated angina: without angina Qualified Code(s): I25.10 - Atherosclerotic heart disease of [place] coronary artery without angina pectoris Is this a current diagnosis for this admission?: Yes (10) Valvular heart disease Is this a current diagnosis for this admission?: Yes (11) GERD (gastroesophageal reflux disease) Qualifiers: Esophagitis presence: without esophagitis Qualified Code(s): K21.9 - Gastro-esophageal reflux disease without esophagitis Is this a current diagnosis for this admission?: Yes (12) Essential hypertension Is this a current diagnosis for this admission?: Yes (13) Gout Qualifiers: Gout site: unspecified site Gout etiology: unspecified cause Chronicity: unspecified Qualified Code(s): M10.9 - Gout, unspecified Is this a current diagnosis for this admission?: Yes (14) History of stroke Is this a current diagnosis for this admission?: Yes - Time Time Spent with patient: Less than 15 minutes - Plan Summary Plan Summary: Serum sodium slightly low today and creatinine slightly higher. We will recheck level in the morning. We will recheck magnesium. Her potassium is greater than 4. Continue supportive care. Possible discharge in the morning if patient continues to improve.
[2016-12-07] MEDS: TORSEMIDE 20 MG TABLET PO SCH ×2 (11:52→17:10)
--- NOTE | 2016-12-07 13:27 | PDOC PROGRESS REPORT ---
Subjective Progress Note for:: 12/07/16 Subjective:: Patient is stable. She tells me she does go to the bathroom and produce a good amount of urine. Urine output is not being accurately recorded unfortunately. She is eating better. However she maintains that she is still weak. No other new complaints. Physical Exam Vital Signs: Temp Pulse Resp BP Pulse Ox 97.7 F 59 L 20 160/52 H 100 12/07/16 11:42 12/07/16 11:42 12/07/16 11:42 12/07/16 11:42 12/07/16 11:42 Intake & Output 12/06/16 12/07/16 12/08/16 06:59 06:59 06:59 Intake Total 907 1243 600 Output Total 2150 100 Balance -1243 1243 500 Weight 74.7 kg 74.5 kg Exam: General appearance: PRESENT: no acute distress, cooperative, well-developed, well-nourished Head exam: PRESENT: atraumatic, normocephalic Eye exam: PRESENT: conjunctiva pale, PERRLA. ABSENT: scleral icterus Neck exam: ABSENT: JVD Respiratory exam: PRESENT: Diminished breath sounds. Bibasilar crackles unchanged ABSENT: rhonchi, unlabored, wheezes Cardiovascular exam: PRESENT: Regular rate rhythm -+S1, +S2. Grade 3/6 systolic murmur GI/Abdominal exam: PRESENT: normal bowel sounds, soft. ABSENT: guarding, mass, tenderness Extremities exam: ABSENT: No edema Neurological exam: PRESENT: alert, awake, oriented to person, place and time. Skin exam: PRESENT: dry, warm, Results Laboratory Results: 12/05/16 04:11 12/07/16 06:28 12/06/16 12/07/16 12/07/16 20:34 06:28 06:28 Sodium 132.6 L 129.6 L Potassium 3.9 3.6 Chloride 83 L 84 L Carbon Dioxide 36 H 33 H Anion Gap 14 13 BUN 62 H 63 H Creatinine 1.62 H 1.83 H Est GFR ( Amer) 37 L 32 L Est GFR (Non-Af Amer) 30 L 26 L Glucose 237 H 167 H Calcium 10.2 9.6 Magnesium 1.3 L 1.9 11/28/16 11/28/16 11/28/16 11:15 11:15 11:15 Creatine Kinase < 20 L CK-MB (CK-2) 0.51 Troponin I 0.077 NT-Pro-B Natriuret Pep 1730 H 11/28/16 11/28/16 11/28/16 17:12 17:12 23:10 Creatine Kinase 23 L 23 L CK-MB (CK-2) 1.01 Troponin I 0.284 NT-Pro-B Natriuret Pep 11/28/16 11/29/16 11/29/16 23:10 11:30 11:30 Creatine Kinase 22 L CK-MB (CK-2) 0.82 0.53 Troponin I 0.684 0.376 NT-Pro-B Natriuret Pep Impressions: Abdomen/Pelvis CT 11/25/16 07:56 IMPRESSION: Diverticulosis. No acute findings. Chest X-Ray 12/02/16 06:00 IMPRESSION: Stable basilar opacity-effusion. Assessment & Plan - Diagnosis (1) Acute kidney injury superimposed on chronic kidney disease Is this a current diagnosis for this admission?: YesPlan: Due to multiple prerenal factors with baseline cardiorenal syndrome. Resolved and kidney function is currently now at baseline. Continue current dose of torsemide. Continue metolazone to be given 30-60 minutes prior to torsemide dose in the morning. Continue to monitor kidney function. Monitor intake and output. (2) Chronic kidney disease, stage IV (severe) Is this a current diagnosis for this admission?: YesPlan: Due to cardiorenal syndrome. Slight increase in creatinine is significantly different, it is still within her baseline kidney function. (3) Hyponatremia Is this a current diagnosis for this admission?: YesPlan: Slightly worse the last few days. Free water restriction. This could be due to some fluid retention metolazone. If worse tomorrow we will consider tolvaptan. (4) CHF (congestive heart failure) Qualifiers: Congestive heart failure type: diastolic Congestive heart failure chronicity: chronic Qualified Code(s): I50.32 - Chronic diastolic ( congestive) heart failure Is this a current diagnosis for this admission?: YesPlan: Improved. Currently compensated. (5) Anemia of chronic disease Is this a current diagnosis for this admission?: YesPlan: Procrit given twice during his hospitalization on 12/02 and yesterday 12/06. Improved. (6) Acute respiratory failure with hypoxia Is this a current diagnosis for this admission?: YesPlan: Resolved. (7) Diabetes mellitus type 2 Is this a current diagnosis for this admission?: YesPlan: Defer to hospitalist service. It is still suboptimal. (8) Diverticulitis large intestine Qualifiers: Diverticulitis bleeding: with bleeding Is this a current diagnosis for this admission?: Yes (9) Hypertension Qualifiers: Hypertension type: essential hypertension Qualified Code(s): I10 - Essential (primary) hypertension Is this a current diagnosis for this admission?: YesPlan: Continue current medications. (10) Lower GI bleeding Is this a current diagnosis for this admission?: YesPlan: Resolved. - Notes Notes: From nephrology standpoint I think the patient can be discharged home in the next 1-2 days if everything else is stable. I will see the patient in my office in 2-3 weeks post discharge. - Time Time with patient: 15-25 minutes
[2016-12-07] MEDS ORDERED: MAGNESIUM OXIDE 400 MG TABLET PO ONE (14:09)
[2016-12-07] MEDS: SIMETHICONE 80 MG TAB.CHEW PO PRN (18:16)
[2016-12-07] MEDS: ONDANSETRON HCL INJ/PF 4 MG/2 ML SDV IV PRN (19:46)
[2016-12-07] MEDS: GABAPENTIN 300 MG CAPSULE PO SCH (21:21)
[2016-12-07] MEDS: ANASTROZOLE 1 MG TABLET PO SCH (21:22)
[2016-12-07] MEDS: ISOSORBIDE MONONITRATE 30 MG TAB.ER.24H PO SCH (21:31)
[2016-12-07] MEDS: ATORVASTATIN CALCIUM 20 MG TABLET PO SCH (21:35)
[2016-12-07] MEDS: HYDROCODONE/ACETAMINOPHEN 10-325 MG TABLET PO PRN (23:45)
[2016-12-08 03:22] LABS: APPEARANCE,URINE CLEAR; BILIRUBIN,URINE NEGATIVE (NEGATIVE); GLUCOSE, URINE NEGATIVE (NEGATIVE); KETONES,URINE NEGATIVE (NEGATIVE); LEUKOCYTE ESTERASE,URINE TRACE (NEGATIVE); NITRITE,URINE NEGATIVE (NEGATIVE); PROTEIN,URINE NEGATIVE (NEGATIVE); URINE SPECIFIC GRAVITY 1.005; UROBILINOGEN,URINE NEGATIVE mg/dL (<2.0)
[2016-12-08 04:59] LABS: ANION GAP 12 (5-19); BLOOD UREA NITROGEN 70 mg/dL (7-20); CALCIUM 10.1 mg/dL (8.4-10.2); CARBON DIOXIDE 33 mmol/L (22-30); CHLORIDE 84 mmol/L (98-107); GLUCOSE 211 mg/dL (75-110); SODIUM 129.3 mmol/L (137-145)
[2016-12-08] MEDS: LANSOPRAZOLE 30 MG TAB.RAP.DR PO SCH ×2 (05:06→16:49)
[2016-12-08 05:09] LABS: POTASSIUM 3.8 mmol/L (3.6-5.0)
[2016-12-08] MEDS: INSULIN LISPRO 100 UNIT/ML 3 ML VIAL SUBCUT PRN ×4 (08:12→22:02)
[2016-12-08] MEDS: SODIUM CHLORIDE NASAL SPRAY 44 ML NASL SCH ×4 (08:13→22:05)
[2016-12-08] MEDS: PAROXETINE HCL 20 MG TABLET PO SCH (08:13)
[2016-12-08] MEDS: ALLOPURINOL 100 MG TABLET PO SCH (10:44)
[2016-12-08] MEDS: METOLAZONE 2.5 MG TABLET PO SCH (10:44)
[2016-12-08] MEDS: ASPIRIN 81 MG TABLET, ENT COATED PO SCH (10:44)
[2016-12-08] MEDS: MAGNESIUM OXIDE 400 MG TABLET PO SCH ×3 (10:44→18:02)
[2016-12-08] MEDS: DILTIAZEM HCL 240 MG CAPSULE.CR PO SCH ×2 (10:44→22:03)
[2016-12-08] MEDS: INSULIN GLARGINE,HUM.REC.ANLOG 300 UNIT/3 ML INSULN.PEN SUBCUT SCH (10:44)
[2016-12-08] MEDS: LOSARTAN POTASSIUM 50 MG TABLET PO SCH (10:44)
[2016-12-08] MEDS: OMEGA-3 ACID ETHYL ESTERS 1 GM CAPSULE PO SCH ×2 (10:45→18:03)
[2016-12-08] MEDS: POTASSIUM CHLORIDE 10 MEQ TABLET.SA PO SCH ×2 (10:45→22:04)
[2016-12-08] MEDS ORDERED: ERTAPENEM SODIUM INJ 1 GM VIAL IV SCH (11:00)
--- NOTE | 2016-12-08 11:04 | PDOC PROGRESS REPORT ---
Subjective Progress Note for:: 12/08/16 Subjective:: Patient's reports being weak and unable to ambulate. Staff reports patient able to ambulate on the hallway for a short distance with assistance and walker. No reported temperature spikes, respiratory distress, nausea or vomiting, diarrhea. Complaining of dysuria, no hematuria. Physical Exam Vital Signs: Temp Pulse Resp BP Pulse Ox 98.3 F 80 16 145/49 H 98 12/08/16 07:47 12/08/16 07:47 12/08/16 07:47 12/08/16 07:47 12/08/16 07:47 Intake & Output 12/07/16 12/08/16 12/09/16 06:59 06:59 06:59 Intake Total 1243 1222 Output Total 250 Balance 1243 972 Weight 74.5 kg 75.1 kg General appearance: PRESENT: no acute distress, obese Head exam: PRESENT: normocephalic Eye exam: PRESENT: EOMI Mouth exam: PRESENT: moist, neck supple Neck exam: ABSENT: JVD Respiratory exam: PRESENT: clear to auscultation dion - Anteriorly bilateral. ABSENT: rhonchi, wheezes Cardiovascular exam: PRESENT: irregular rhythm. ABSENT: gallop GI/Abdominal exam: PRESENT: soft, tenderness - Minimal in the hypogastric area. ABSENT: distended Extremities exam: PRESENT: other - Trace lower extremity edema Neurological exam: PRESENT: alert, awake, oriented to situation Skin exam: PRESENT: dry, warm. ABSENT: cyanosis Results Laboratory Results: 12/05/16 04:11 12/08/16 03:41 12/07/16 12/08/16 12/08/16 06:28 02:26 03:41 Sodium 129.3 L Potassium 3.8 Chloride 84 L Carbon Dioxide 33 H Anion Gap 12 BUN 70 H Creatinine 2.10 H Est GFR ( Amer) 27 L Est GFR (Non-Af Amer) 23 L Glucose 211 H Calcium 10.1 Magnesium 1.9 Urine Color STRAW Urine Appearance CLEAR Urine pH 8.0 Ur Specific [place] 1.005 Urine Protein NEGATIVE Urine Glucose (UA) NEGATIVE Urine Ketones NEGATIVE Urine Blood SMALL H Urine Nitrite NEGATIVE Ur Leukocyte Esterase TRACE H Urine WBC (Auto) 9 Urine RBC (Auto) 1 11/28/16 11/28/16 11/28/16 11:15 11:15 11:15 Creatine Kinase < 20 L CK-MB (CK-2) 0.51 Troponin I 0.077 NT-Pro-B Natriuret Pep 1730 H 11/28/16 11/28/16 11/28/16 17:12 17:12 23:10 Creatine Kinase 23 L 23 L CK-MB (CK-2) 1.01 Troponin I 0.284 NT-Pro-B Natriuret Pep 11/28/16 11/29/16 11/29/16 23:10 11:30 11:30 Creatine Kinase 22 L CK-MB (CK-2) 0.82 0.53 Troponin I 0.684 0.376 NT-Pro-B Natriuret Pep Impressions: Abdomen/Pelvis CT 11/25/16 07:56 IMPRESSION: Diverticulosis. No acute findings. Chest X-Ray 12/02/16 06:00 IMPRESSION: Stable basilar opacity-effusion. Assessment & Plan - Diagnosis (1) Acute respiratory failure with hypoxia Is this a current diagnosis for this admission?: Yes (2) Diverticulitis large intestine Qualifiers: Diverticulitis bleeding: with bleeding Is this a current diagnosis for this admission?: Yes (3) GI bleed Qualifiers: GI bleed type/associated pathology: diverticulitis Qualified Code(s) : K57.93 - Diverticulitis of intestine, part unspecified, without perforation or abscess with bleeding Is this a current diagnosis for this admission?: Yes (4) Acute on chronic diastolic (congestive) heart failure Is this a current diagnosis for this admission?: Yes (5) Diabetes mellitus type 2 Is this a current diagnosis for this admission?: Yes (6) Acute kidney injury superimposed on chronic kidney disease Is this a current diagnosis for this admission?: Yes (7) Anemia of chronic disease Is this a current diagnosis for this admission?: Yes (8) Chronic kidney disease, stage IV (severe) Is this a current diagnosis for this admission?: Yes (9) Coronary artery disease Qualifiers: Coronary Disease-Associated Artery/Lesion type: [place] artery [place] vs. transplanted heart: [place] heart Associated angina: without angina Qualified Code(s): I25.10 - Atherosclerotic heart disease of [place] coronary artery without angina pectoris Is this a current diagnosis for this admission?: Yes (10) Valvular heart disease Is this a current diagnosis for this admission?: Yes (11) GERD (gastroesophageal reflux disease) Qualifiers: Esophagitis presence: without esophagitis Qualified Code(s): K21.9 - Gastro-esophageal reflux disease without esophagitis Is this a current diagnosis for this admission?: Yes (12) Essential hypertension Is this a current diagnosis for this admission?: Yes (13) Gout Qualifiers: Gout site: unspecified site Gout etiology: unspecified cause Chronicity: unspecified Qualified Code(s): M10.9 - Gout, unspecified Is this a current diagnosis for this admission?: Yes (14) History of stroke Is this a current diagnosis for this admission?: Yes - Time Time Spent with patient: 25-34 minutes - Plan Summary Plan Summary: Patient refusing subacute rehabilitation as well as family. Culture urine, begin intravenous Invanz. Hold Zaroxolyn. Recheck creatinine in the morning. Continue therapy.
[2016-12-08] MEDS: TORSEMIDE 20 MG TABLET PO SCH ×2 (11:13→18:02)
[2016-12-08] MEDS: HYDROCODONE/ACETAMINOPHEN 10-325 MG TABLET PO PRN ×2 (12:41→19:34)
--- NOTE | 2016-12-08 15:06 | PDOC PROGRESS REPORT ---
Subjective Progress Note for:: 12/08/16 Subjective:: Patient complains of lower abdominal pain, dysuria and urination. She also complains of some soreness in her lower back area near the rectum. Other than that she doesn't have any other new complaints except for still feeling weak especially in her legs and unable to get up and walk by herself without assistance and walker. Physical Exam Vital Signs: Temp Pulse Resp BP Pulse Ox 98.3 F 60 16 163/50 H 100 12/08/16 07:47 12/08/16 13:05 12/08/16 13:05 12/08/16 13:05 12/08/16 13:05 Intake & Output 12/07/16 12/08/16 12/09/16 06:59 06:59 06:59 Intake Total 1243 1222 Output Total 250 Balance 1243 972 Weight 74.5 kg 75.1 kg Exam: General appearance: PRESENT: no acute distress, cooperative, well-developed, well-nourished Head exam: PRESENT: atraumatic, normocephalic Eye exam: PRESENT: conjunctiva pale, PERRLA. ABSENT: scleral icterus Neck exam: ABSENT: JVD Respiratory exam: PRESENT: Diminished breath sounds. Unchanged right basilar crackles ABSENT: rhonchi, unlabored, wheezes Cardiovascular exam: PRESENT: Regular rate rhythm -+S1, +S2. Grade 2/6 systolic murmur GI/Abdominal exam: PRESENT: normal bowel sounds, soft. There is some redness around the rectal area but no open sore. She has external hemorrhoids ABSENT: guarding, mass, tenderness Extremities exam: Bilateral lower extremity trace edema Neurological exam: PRESENT: alert, awake, oriented to person, place and time. Skin exam: PRESENT: dry, warm, Results Laboratory Results: 12/05/16 04:11 12/08/16 03:41 12/08/16 12/08/16 02:26 03:41 Sodium 129.3 L Potassium 3.8 Chloride 84 L Carbon Dioxide 33 H Anion Gap 12 BUN 70 H Creatinine 2.10 H Est GFR ( Amer) 27 L Est GFR (Non-Af Amer) 23 L Glucose 211 H Calcium 10.1 Urine Color STRAW Urine Appearance CLEAR Urine pH 8.0 Ur Specific [place] 1.005 Urine Protein NEGATIVE Urine Glucose (UA) NEGATIVE Urine Ketones NEGATIVE Urine Blood SMALL H Urine Nitrite NEGATIVE Ur Leukocyte Esterase TRACE H Urine WBC (Auto) 9 Urine RBC (Auto) 1 11/28/16 11/28/16 11/28/16 11:15 11:15 11:15 Creatine Kinase < 20 L CK-MB (CK-2) 0.51 Troponin I 0.077 NT-Pro-B Natriuret Pep 1730 H 11/28/16 11/28/16 11/28/16 17:12 17:12 23:10 Creatine Kinase 23 L 23 L CK-MB (CK-2) 1.01 Troponin I 0.284 NT-Pro-B Natriuret Pep 11/28/16 11/29/16 11/29/16 23:10 11:30 11:30 Creatine Kinase 22 L CK-MB (CK-2) 0.82 0.53 Troponin I 0.684 0.376 NT-Pro-B Natriuret Pep Impressions: Abdomen/Pelvis CT 11/25/16 07:56 IMPRESSION: Diverticulosis. No acute findings. Chest X-Ray 12/02/16 06:00 IMPRESSION: Stable basilar opacity-effusion. Assessment & Plan - Diagnosis (1) Acute kidney injury superimposed on chronic kidney disease Is this a current diagnosis for this admission?: YesPlan: Due to multiple prerenal factors with baseline cardiorenal syndrome. Resolved and kidney function is currently now at baseline. Slight increase in BNP creatinine is expected rise due to starting the losartan back. Patient should go home with the same dose of torsemide and metolazone. Continue to monitor kidney function. Monitor intake and output. (2) Chronic kidney disease, stage IV (severe) Is this a current diagnosis for this admission?: YesPlan: Due to cardiorenal syndrome. Slight increase in creatinine is still within her baseline kidney function due to reinitiation of losartan. (3) Hyponatremia Is this a current diagnosis for this admission?: YesPlan: Unchanged and mild. No need for any intervention today. (4) CHF (congestive heart failure) Qualifiers: Congestive heart failure type: diastolic Congestive heart failure chronicity: chronic Qualified Code(s): I50.32 - Chronic diastolic ( congestive) heart failure Is this a current diagnosis for this admission?: YesPlan: Improved. Currently compensated. (5) Anemia of chronic disease Is this a current diagnosis for this admission?: YesPlan: Procrit given twice during his hospitalization on 12/02 and yesterday 12/06. Improved. (6) Acute respiratory failure with hypoxia Is this a current diagnosis for this admission?: YesPlan: Resolved. (7) Diabetes mellitus type 2 Is this a current diagnosis for this admission?: YesPlan: Defer to hospitalist service. It is still suboptimal. (8) Diverticulitis large intestine Qualifiers: Diverticulitis bleeding: with bleeding Is this a current diagnosis for this admission?: Yes (9) Hypertension Qualifiers: Hypertension type: essential hypertension Qualified Code(s): I10 - Essential (primary) hypertension Is this a current diagnosis for this admission?: YesPlan: Continue current medications. (10) Lower GI bleeding Is this a current diagnosis for this admission?: YesPlan: Resolved. (11) Dysuria Is this a current diagnosis for this admission?: YesPlan: Possible mild UTI. Urine culture pending. Management per hospitalist. - Notes Notes: Patient can be discharged from nephrology standpoint if she remains stable. Patient needs home health care and outpatient physical therapy or subacute rehabilitation placement. - Time Time with patient: 15-25 minutes
[2016-12-08] MEDS: ERTAPENEM SODIUM 1 GM in NORMAL SALINE 50 ML IV SCH (16:49)
[2016-12-08] MEDS: ANASTROZOLE 1 MG TABLET PO SCH (22:02)
[2016-12-08] MEDS: ISOSORBIDE MONONITRATE 30 MG TAB.ER.24H PO SCH (22:04)
[2016-12-08] MEDS: GABAPENTIN 300 MG CAPSULE PO SCH (22:04)
[2016-12-08] MEDS: ATORVASTATIN CALCIUM 20 MG TABLET PO SCH (22:05)
[2016-12-09] MEDS: HYDROCODONE/ACETAMINOPHEN 10-325 MG TABLET PO PRN (02:00)
[2016-12-09 04:59] LABS: HEMATOCRIT 28.2 % (36.0-47.0); HEMOGLOBIN 9.7 g/dL (12.0-15.5); HGB HCT DIFFERENCE 0.9; MEAN CORPUSCULAR HEMOGLOBIN 30.7 pg (27.0-33.4); MEAN CORPUSCULAR HGB CONC 34.4 g/dL (32.0-36.0); MEAN CORPUSCULAR VOLUME 89 fl (80-97); RED BLOOD COUNT 3.16 10^6/uL (3.72-5.28); RED CELL DISTRIBUTION WIDTH 15.6 % (11.5-14.0); WHITE BLOOD COUNT 8.7 10^3/uL (4.0-10.5)
[2016-12-09] MEDS: LANSOPRAZOLE 30 MG TAB.RAP.DR PO SCH ×2 (05:13→18:17)
[2016-12-09 05:23] LABS: ANION GAP 13 (5-19); BLOOD UREA NITROGEN 63 mg/dL (7-20); CALCIUM 10.1 mg/dL (8.4-10.2); CARBON DIOXIDE 31 mmol/L (22-30); CHLORIDE 81 mmol/L (98-107); CREATININE RESULT 1.73 mg/dL (0.52-1.25); GLUCOSE 197 mg/dL (75-110); POTASSIUM 3.3 mmol/L (3.6-5.0); SODIUM 125.4 mmol/L (137-145)
[2016-12-09] MEDS: DILTIAZEM HCL 240 MG CAPSULE.CR PO SCH ×2 (10:45→22:01)
[2016-12-09] MEDS: LOSARTAN POTASSIUM 50 MG TABLET PO SCH (10:46)
[2016-12-09] MEDS: PAROXETINE HCL 20 MG TABLET PO SCH (10:46)
[2016-12-09] MEDS: POTASSIUM CHLORIDE 10 MEQ TABLET.SA PO SCH ×2 (10:47→22:01)
[2016-12-09] MEDS: OMEGA-3 ACID ETHYL ESTERS 1 GM CAPSULE PO SCH ×2 (10:47→18:08)
[2016-12-09] MEDS: ASPIRIN 81 MG TABLET, ENT COATED PO SCH (10:48)
[2016-12-09] MEDS: MAGNESIUM OXIDE 400 MG TABLET PO SCH ×3 (10:48→18:08)
[2016-12-09] MEDS: ALLOPURINOL 100 MG TABLET PO SCH (10:48)
[2016-12-09] MEDS: INSULIN GLARGINE,HUM.REC.ANLOG 300 UNIT/3 ML INSULN.PEN SUBCUT SCH (10:49)
[2016-12-09] MEDS: TORSEMIDE 20 MG TABLET PO SCH ×2 (10:49→18:08)
[2016-12-09] MEDS: SODIUM CHLORIDE NASAL SPRAY 44 ML NASL SCH ×4 (10:55→22:02)
[2016-12-09] MEDS: ERTAPENEM SODIUM 1 GM in NORMAL SALINE 50 ML IV SCH (14:34)
--- NOTE | 2016-12-09 16:30 | PDOC PROGRESS REPORT ---
Subjective Progress Note for:: 12/09/16 Subjective:: Patient overall is improved, however complains of not feeling ready yet. Prefers to go home in the morning. Denies any chills or fever, nausea or vomiting, chest pain, PND orthopnea. No increasing edema. Patient reports some blood on the stools upon cleaning but has hemorrhoids. Still having some burning urination. Urine culture gram-positive cocci in chains. Physical Exam Vital Signs: Temp Pulse Resp BP Pulse Ox 97.5 F 58 L 16 156/56 H 100 12/09/16 11:22 12/09/16 11:22 12/09/16 11:22 12/09/16 11:22 12/09/16 11:22 Intake & Output 12/08/16 12/09/16 12/10/16 06:59 06:59 06:59 Intake Total 1222 2103 237 Output Total 250 2250 650 Balance 972 -734 -719 Weight 75.1 kg 75.5 kg General appearance: PRESENT: no acute distress, morbidly obese Head exam: PRESENT: normocephalic Eye exam: PRESENT: EOMI Mouth exam: PRESENT: moist, neck supple Neck exam: ABSENT: JVD Respiratory exam: PRESENT: clear to auscultation dion - Anteriorly, rales - Posteriorly in the lower lung briggs Cardiovascular exam: PRESENT: RRR. ABSENT: gallop GI/Abdominal exam: PRESENT: normal bowel sounds, soft Extremities exam: PRESENT: other - Lower extremity edema improved, Neurological exam: PRESENT: alert, awake, oriented to situation Skin exam: PRESENT: dry, warm. ABSENT: cyanosis Results Laboratory Results: 12/09/16 03:35 12/09/16 03:35 12/08/16 12/09/16 12/09/16 02:26 03:35 03:35 WBC 8.7 RBC 3.16 L Hgb 9.7 L Hct 28.2 L MCV 89 MCH 30.7 MCHC 34.4 RDW 15.6 H Plt Count 258 Sodium 125.4 L Potassium 3.3 L Chloride 81 L Carbon Dioxide 31 H Anion Gap 13 BUN 63 H Creatinine 1.73 H Est GFR ( Amer) 34 L Est GFR (Non-Af Amer) 28 L Glucose 197 H Calcium 10.1 Urine Color STRAW Urine Appearance CLEAR Urine pH 8.0 Ur Specific [place] 1.005 Urine Protein NEGATIVE Urine Glucose (UA) NEGATIVE Urine Ketones NEGATIVE Urine Blood SMALL H Urine Nitrite NEGATIVE Ur Leukocyte Esterase TRACE H Urine WBC (Auto) 9 Urine RBC (Auto) 1 11/28/16 11/28/16 11/28/16 11:15 11:15 11:15 Creatine Kinase < 20 L CK-MB (CK-2) 0.51 Troponin I 0.077 NT-Pro-B Natriuret Pep 1730 H 11/28/16 11/28/16 11/28/16 17:12 17:12 23:10 Creatine Kinase 23 L 23 L CK-MB (CK-2) 1.01 Troponin I 0.284 NT-Pro-B Natriuret Pep 11/28/16 11/29/16 11/29/16 23:10 11:30 11:30 Creatine Kinase 22 L CK-MB (CK-2) 0.82 0.53 Troponin I 0.684 0.376 NT-Pro-B Natriuret Pep Impressions: Abdomen/Pelvis CT 11/25/16 07:56 IMPRESSION: Diverticulosis. No acute findings. Chest X-Ray 12/02/16 06:00 IMPRESSION: Stable basilar opacity-effusion. Assessment & Plan - Diagnosis (1) Acute respiratory failure with hypoxia Is this a current diagnosis for this admission?: Yes (2) Diverticulitis large intestine Qualifiers: Diverticulitis bleeding: with bleeding Is this a current diagnosis for this admission?: Yes (3) GI bleed Qualifiers: GI bleed type/associated pathology: diverticulitis Qualified Code(s) : K57.93 - Diverticulitis of intestine, part unspecified, without perforation or abscess with bleeding Is this a current diagnosis for this admission?: Yes (4) Acute on chronic diastolic (congestive) heart failure Is this a current diagnosis for this admission?: Yes (5) Diabetes mellitus type 2 Is this a current diagnosis for this admission?: Yes (6) Acute kidney injury superimposed on chronic kidney disease Is this a current diagnosis for this admission?: Yes (7) Anemia of chronic disease Is this a current diagnosis for this admission?: Yes (8) Chronic kidney disease, stage IV (severe) Is this a current diagnosis for this admission?: Yes (9) Coronary artery disease Qualifiers: Coronary Disease-Associated Artery/Lesion type: [place] artery [place] vs. transplanted heart: [place] heart Associated angina: without angina Qualified Code(s): I25.10 - Atherosclerotic heart disease of [place] coronary artery without angina pectoris Is this a current diagnosis for this admission?: Yes (10) Valvular heart disease Is this a current diagnosis for this admission?: Yes (11) GERD (gastroesophageal reflux disease) Qualifiers: Esophagitis presence: without esophagitis Qualified Code(s): K21.9 - Gastro-esophageal reflux disease without esophagitis Is this a current diagnosis for this admission?: Yes (12) Essential hypertension Is this a current diagnosis for this admission?: Yes (13) Gout Qualifiers: Gout site: unspecified site Gout etiology: unspecified cause Chronicity: unspecified Qualified Code(s): M10.9 - Gout, unspecified Is this a current diagnosis for this admission?: Yes (14) History of stroke Is this a current diagnosis for this admission?: Yes - Time Time Spent with patient: 25-34 minutes - Plan Summary Plan Summary: Patient's serum sodium continues to trend down. We will stop the Zaroxolyn, we will stop angiotensin receptor renee. Continue current antibiotics for now. Follow urine culture. Continue supportive care. Recheck electrolytes in the morning. Replace potassium. Arrange for home health.
[2016-12-09] MEDS ORDERED: POTASSIUM CHLORIDE 10 MEQ TABLET.SA PO ONE (17:30)
[2016-12-09] MEDS: INSULIN LISPRO 100 UNIT/ML 3 ML VIAL SUBCUT PRN ×2 (18:17→23:42)
--- NOTE | 2016-12-09 19:00 | PDOC DISCHARGE SUMMARY ---
General - Admit/Disc Date/PCP Admission Date/Primary Care Provider: 11/26/16 08:34 YO CHASE, Discharge Date: 12/10/16 - Discharge Diagnosis (1) Acute respiratory failure with hypoxia Is this a current diagnosis for this admission?: Yes (2) Diverticulitis large intestine Is this a current diagnosis for this admission?: Yes (3) GI bleed Is this a current diagnosis for this admission?: Yes (4) Acute on chronic diastolic (congestive) heart failure Is this a current diagnosis for this admission?: Yes (5) Diabetes mellitus type 2 Is this a current diagnosis for this admission?: Yes (6) Acute kidney injury superimposed on chronic kidney disease Is this a current diagnosis for this admission?: Yes (7) Anemia of chronic disease Is this a current diagnosis for this admission?: Yes (8) Chronic kidney disease, stage IV (severe) Is this a current diagnosis for this admission?: Yes (9) Coronary artery disease Is this a current diagnosis for this admission?: Yes (10) Valvular heart disease Is this a current diagnosis for this admission?: Yes (11) GERD (gastroesophageal reflux disease) Is this a current diagnosis for this admission?: Yes (12) Essential hypertension Is this a current diagnosis for this admission?: Yes (13) Gout Is this a current diagnosis for this admission?: Yes (14) History of stroke Is this a current diagnosis for this admission?: Yes - Additional Information Resuscitation Status: Do Not Resuscitate Discharge Diet: Cardiac - low fat, low salt, Diabetic - no concentrated sweets Discharge Activity: Activity As Tolerated, Balance Activity w/Rest, Slowly Increase Activity Home Medications: Allopurinol [Zyloprim 100 mg Tablet] 100 mg PO DAILY 11/25/16 Anastrozole [Arimidex 1 mg Tablet] 1 mg PO DAILY 11/25/16 Ascorbic Acid [Vitamin C 500 mg Tablet] 500 mg PO DAILY 11/25/16 Aspirin [Adult Low Dose Aspirin EC] 81 mg PO DAILY 11/25/16 Diltiazem HCl [Cardizem Cd 240 mg Capsule.cr] 240 mg PO Q12 11/25/16 Famotidine [Pepcid 20 mg Tablet] 20 mg PO Q12 11/25/16 Fenofibrate Nanocrystallized [Triglide] 160 mg PO DAILY 11/25/16 Fluticasone Propionate [Flonase Nasal [place] 50 Mcg/[place] 16 gm] 1 spray NASL Q12 11/25/16 Gabapentin [Neurontin 100 mg Capsule] 300 mg PO QHS 11/25/16 Hydrocodone/Acetaminophen [[place] 10-325 mg Tablet] 1 tab PO QIDP PRN 11/25/16 Magnesium Oxide [Mag-Ox 400 mg Tablet] 400 mg PO TID 11/25/16 Nitroglycerin [Nitrostat 0.4 mg (1/150 Gr) Tabs 25/Bottle] 0.4 mg SL Q5MP PRN [place]-3 Acid Ethyl Esters [Lovaza 1 gm Capsule] 2 gm PO BID 11/25/16 Ondansetron HCl [Zofran 8 mg Tablet] 8 mg PO Q8HP PRN 11/25/16 Paroxetine HCl [Paxil 20 mg Tablet] 20 mg PO QAM 11/25/16 Potassium Chloride [K-Tab ER] 20 meq PO BID 11/25/16 Rosuvastatin Calcium [Crestor 10 mg Tablet] 10 mg PO DAILY 11/25/16 Carvedilol [Coreg 6.25 mg Tablet] 25 mg PO Q12 #60 tablet 12/09/16 Cetirizine HCl [Zyrtec 10 mg Tablet] 10 mg PO DAILY PRN #0 12/09/16 Hc Acetate/Pramoxine HCl [Epifoam Hc 1% Aerosol Foam] 1 applic TP TIDP PRN 30 Days 12/09/16 Insulin Glargine,Hum.rec.anlog [Lantus Insulin 100 Unit/mL] 30 unit SUBCUT DAILY 30 Days 12/09/16 Isosorbide Mononitrate [Imdur 30 mg Tablet.er] 120 mg PO QHS #30 tab.er.24h Simethicone [Mylicon 80 mg Chewable Tablet] 80 mg PO Q6HP PRN tab.chew Torsemide [Demadex 20 mg Tablet] 40 mg PO BID #60 tablet 12/09/16 Additional Information: Measure blood sugar 3 times a day and record, bring to next physician visit History of Present Illness Patient complains of: Rectal bleeding and abdominal pain History of Present Illness: JACINTA LUNSFORD is a 81 year old female, with a history of atrial fibrillation, CHF, hypertension, peripheral vascular disease, COPD oxygen dependent, diabetes mellitus type II insulin-requiring was sent to the hospital because of rectal bleeding and abdominal pain. Patient reportedly had a recent colonoscopy 3 months before admission were polypectomies were done. Patient had a third episode of rectal bleeding. In the emergency room, CT of the abdomen and pelvis showed diverticulosis, an impression of diverticulitis was made and therefore the patient was referred for admission. For details please refer to history and physical examination performed by the admitting physician. Hospital Course Hospital Course: The patient was admitted to [facility]. The patient was started on antibiotics for diverticulitis and the patient rectal bleeding improved. It eventually resolved. Hemoglobin and hematocrit was monitored and trended down and initially requiring 2 units of PRBC. Subsequent hemoglobin and hematocrit monitoring was stable. Course was however complicated by heart failure requiring administration of diuretics. With such measure her creatinine increased. Cardiology and nephrology were consulted. The minute the patient's medications were titrated and eventually the patient's heart failure and edema improved and creatinine improve. She was initially placed on Ramon catheter for input and output monitoring. Her course is likewise complicated by hypoglycemia requiring discontinuation of her prior insulin regimen and changing to Lantus. The patient subsequently improved, she refused subacute rehabilitation. Her Ramon catheter was discontinued, she later developed dysuria requiring antibiotic for UTI and urine culture growing gram-positive cocci in chains. Patient just wanted to go home on home health for physical therapy. She started to develop some small amounts of blood in her stools noted on cleaning but she had a history of hemorrhoids and she was placed on hemorrhoid foam. Hematocrit remained stable. The rest of the hospital stays unremarkable. Physical Exam Vital Signs: Temp Pulse Resp BP Pulse Ox 98.4 F 60 16 160/49 H 100 12/09/16 15:45 12/09/16 15:45 12/09/16 15:45 12/09/16 15:45 12/09/16 16:50 Intake & Output 12/08/16 12/09/16 12/10/16 06:59 06:59 06:59 Intake Total 1222 2103 287 Output Total 250 2250 650 Balance 571 -680 -080 Weight 75.1 kg 75.5 kg General appearance: PRESENT: no acute distress, morbidly obese Head exam: PRESENT: normocephalic Eye exam: PRESENT: EOMI Mouth exam: PRESENT: moist, neck supple Neck exam: ABSENT: JVD Respiratory exam: PRESENT: clear to auscultation dion - Anteriorly, rales - Occasional posteriorly on the lower lung briggs. ABSENT: rhonchi, wheezes Cardiovascular exam: PRESENT: irregular rhythm. ABSENT: gallop GI/Abdominal exam: PRESENT: hypoactive bowel sounds, soft. ABSENT: tenderness Extremities exam: PRESENT: other - Trace to +1 edema Neurological exam: PRESENT: alert, awake, oriented to situation Skin exam: PRESENT: dry, warm. ABSENT: cyanosis Results Laboratory Results: 12/09/16 03:35 12/09/16 03:35 12/08/16 12/09/16 12/09/16 02:26 03:35 03:35 WBC 8.7 RBC 3.16 L Hgb 9.7 L Hct 28.2 L MCV 89 MCH 30.7 MCHC 34.4 RDW 15.6 H Plt Count 258 Sodium 125.4 L Potassium 3.3 L Chloride 81 L Carbon Dioxide 31 H Anion Gap 13 BUN 63 H Creatinine 1.73 H Est GFR ( Amer) 34 L Est GFR (Non-Af Amer) 28 L Glucose 197 H Calcium 10.1 Urine Color STRAW Urine Appearance CLEAR Urine pH 8.0 Ur Specific [place] 1.005 Urine Protein NEGATIVE Urine Glucose (UA) NEGATIVE Urine Ketones NEGATIVE Urine Blood SMALL H Urine Nitrite NEGATIVE Ur Leukocyte Esterase TRACE H Urine WBC (Auto) 9 Urine RBC (Auto) 1 11/28/16 11/28/16 11/28/16 11:15 11:15 11:15 Creatine Kinase < 20 L CK-MB (CK-2) 0.51 Troponin I 0.077 NT-Pro-B Natriuret Pep 1730 H 11/28/16 11/28/16 11/28/16 17:12 17:12 23:10 Creatine Kinase 23 L 23 L CK-MB (CK-2) 1.01 Troponin I 0.284 NT-Pro-B Natriuret Pep 11/28/16 11/29/16 11/29/16 23:10 11:30 11:30 Creatine Kinase 22 L CK-MB (CK-2) 0.82 0.53 Troponin I 0.684 0.376 NT-Pro-B Natriuret Pep Impressions: Abdomen/Pelvis CT 11/25/16 07:56 IMPRESSION: Diverticulosis. No acute findings. Chest X-Ray 12/02/16 06:00 IMPRESSION: Stable basilar opacity-effusion. Qualifiers PATEINT BEING DISCHARGED WITH ANY OF THE FOLLOWING DIAGNOSIS?: Heart Failure HF Pt being discharged on ACEI for LVEF less than 40%?: No Reason(s) for not prescribing ACEI:: Not indicated - Renal failure, hyponatremia , Contraindicated HF Pt being discharged on ARBS for LVEF less than 40%?: No Reason(s) for not prescribing ARBS:: Not indicated - Renal failure and hyponatremia, Contraindicated HF Pt with Afib discharged with Warfarin?: No Reason(s) for not prescribing Warfarin:: Contraindicated - GI bleeding, risk of bleeding HF Pt discharged on evidence-based Beta Leydi:: Yes Plan Discharge Plan: Follow-up with primary care physician in one week. Dr. De Luna in 1-[address] Jewell in one week. Time Spent: Less than 30 Minutes
--- NOTE | 2016-12-09 19:24 | PDOC PROGRESS REPORT ---
Subjective Progress Note for:: 12/09/16 Subjective:: Patient is doing fine except for feeling sore on her buttocks area unchanged from yesterday. She and her tells me that she tried walking around a little bit on her room today. She is making urine. Her breathing is unchanged and stable. Physical Exam Vital Signs: Temp Pulse Resp BP Pulse Ox 98.4 F 60 16 160/49 H 100 12/09/16 15:45 12/09/16 15:45 12/09/16 15:45 12/09/16 15:45 12/09/16 16:50 Intake & Output 12/08/16 12/09/16 12/10/16 06:59 06:59 06:59 Intake Total 1222 2103 287 Output Total 250 2250 650 Balance 972 -790 -900 Weight 75.1 kg 75.5 kg Exam: General appearance: PRESENT: no acute distress, cooperative, well-developed, well-nourished Head exam: PRESENT: atraumatic, normocephalic Eye exam: PRESENT: conjunctiva pale, PERRLA. ABSENT: scleral icterus Neck exam: ABSENT: JVD Respiratory exam: PRESENT: Diminished breath sounds. Minimal bibasal crackles ABSENT: rhonchi, unlabored, wheezes Cardiovascular exam: PRESENT: Regular rate rhythm -+S1, +S2. Grade 3/6 systolic murmur GI/Abdominal exam: PRESENT: normal bowel sounds, soft. ABSENT: guarding, mass, tenderness Extremities exam: Bilateral lower extremity trace edema Neurological exam: PRESENT: alert, awake, oriented to person, place and time. Skin exam: PRESENT: dry, warm, Results Laboratory Results: 12/09/16 03:35 12/09/16 03:35 12/08/16 12/09/16 12/09/16 02:26 03:35 03:35 WBC 8.7 RBC 3.16 L Hgb 9.7 L Hct 28.2 L MCV 89 MCH 30.7 MCHC 34.4 RDW 15.6 H Plt Count 258 Sodium 125.4 L Potassium 3.3 L Chloride 81 L Carbon Dioxide 31 H Anion Gap 13 BUN 63 H Creatinine 1.73 H Est GFR ( Amer) 34 L Est GFR (Non-Af Amer) 28 L Glucose 197 H Calcium 10.1 Urine Color STRAW Urine Appearance CLEAR Urine pH 8.0 Ur Specific [place] 1.005 Urine Protein NEGATIVE Urine Glucose (UA) NEGATIVE Urine Ketones NEGATIVE Urine Blood SMALL H Urine Nitrite NEGATIVE Ur Leukocyte Esterase TRACE H Urine WBC (Auto) 9 Urine RBC (Auto) 1 11/28/16 11/28/16 11/28/16 11:15 11:15 11:15 Creatine Kinase < 20 L CK-MB (CK-2) 0.51 Troponin I 0.077 NT-Pro-B Natriuret Pep 1730 H 11/28/16 11/28/16 11/28/16 17:12 17:12 23:10 Creatine Kinase 23 L 23 L CK-MB (CK-2) 1.01 Troponin I 0.284 NT-Pro-B Natriuret Pep 11/28/16 11/29/16 11/29/16 23:10 11:30 11:30 Creatine Kinase 22 L CK-MB (CK-2) 0.82 0.53 Troponin I 0.684 0.376 NT-Pro-B Natriuret Pep Impressions: Abdomen/Pelvis CT 11/25/16 07:56 IMPRESSION: Diverticulosis. No acute findings. Chest X-Ray 12/02/16 06:00 IMPRESSION: Stable basilar opacity-effusion. Assessment & Plan - Diagnosis (1) Acute kidney injury superimposed on chronic kidney disease Is this a current diagnosis for this admission?: YesPlan: Due to multiple prerenal factors with baseline cardiorenal syndrome. Resolved and kidney function is currently now at baseline. Patient should go home with the same dose of torsemide and metolazone. Continue to monitor kidney function. Monitor intake and output. (2) Chronic kidney disease, stage IV (severe) Is this a current diagnosis for this admission?: Yes (3) Hyponatremia Is this a current diagnosis for this admission?: YesPlan: We will give tolvaptan 15 mg 1 dose tonight. (4) CHF (congestive heart failure) Qualifiers: Congestive heart failure type: diastolic Congestive heart failure chronicity: chronic Qualified Code(s): I50.32 - Chronic diastolic ( congestive) heart failure Is this a current diagnosis for this admission?: YesPlan: Improved. Currently compensated. (5) Anemia of chronic disease Is this a current diagnosis for this admission?: YesPlan: Procrit given twice during his hospitalization on 12/02 and yesterday 12/06. Improved. (6) Acute respiratory failure with hypoxia Is this a current diagnosis for this admission?: YesPlan: Resolved. (7) Diabetes mellitus type 2 Is this a current diagnosis for this admission?: YesPlan: Defer to hospitalist service. It is still suboptimal. (8) Diverticulitis large intestine Qualifiers: Diverticulitis bleeding: with bleeding Is this a current diagnosis for this admission?: Yes (9) Hypertension Qualifiers: Hypertension type: essential hypertension Qualified Code(s): I10 - Essential (primary) hypertension Is this a current diagnosis for this admission?: YesPlan: Continue current medications including losartan upon discharge. (10) Lower GI bleeding Is this a current diagnosis for this admission?: YesPlan: Resolved. (11) Dysuria Is this a current diagnosis for this admission?: YesPlan: Possible mild UTI. Urine culture pending. Management per hospitalist. - Time Time with patient: 15-25 minutes
[2016-12-09] MEDS ORDERED: TOLVAPTAN 15 MG TABLET PO ONE (20:30)
[2016-12-09] MEDS: HC ACETATE/PRAMOXINE HCL 10 GM TP PRN (22:00)
[2016-12-09] MEDS: ANASTROZOLE 1 MG TABLET PO SCH (22:01)
[2016-12-09] MEDS: ISOSORBIDE MONONITRATE 30 MG TAB.ER.24H PO SCH (22:01)
[2016-12-09] MEDS: ATORVASTATIN CALCIUM 20 MG TABLET PO SCH (22:01)
[2016-12-09] MEDS: GABAPENTIN 300 MG CAPSULE PO SCH (22:01)
[2016-12-10] MEDS ORDERED: ACETAMINOPHEN 325 MG TABLET PO PRN (00:21)
[2016-12-10] MEDS: HC ACETATE/PRAMOXINE HCL 10 GM TP PRN (03:07)
[2016-12-10 05:21] LABS: ANION GAP 11 (5-19); BLOOD UREA NITROGEN 61 mg/dL (7-20); CALCIUM 10.4 mg/dL (8.4-10.2); CARBON DIOXIDE 33 mmol/L (22-30); CHLORIDE 85 mmol/L (98-107); CREATININE RESULT 1.65 mg/dL (0.52-1.25); GLUCOSE 187 mg/dL (75-110); SODIUM 128.7 mmol/L (137-145)
[2016-12-10] MEDS: LANSOPRAZOLE 30 MG TAB.RAP.DR PO SCH (06:08)
[2016-12-10] MEDS: INSULIN GLARGINE,HUM.REC.ANLOG 300 UNIT/3 ML INSULN.PEN SUBCUT SCH (09:40)
[2016-12-10] MEDS: PAROXETINE HCL 20 MG TABLET PO SCH (09:41)
[2016-12-10] MEDS: TORSEMIDE 20 MG TABLET PO SCH (09:41)
[2016-12-10] MEDS: ASPIRIN 81 MG TABLET, ENT COATED PO SCH (09:42)
[2016-12-10] MEDS: MAGNESIUM OXIDE 400 MG TABLET PO SCH (09:42)
[2016-12-10] MEDS: POTASSIUM CHLORIDE 10 MEQ TABLET.SA PO SCH (09:43)
[2016-12-10] MEDS: ALLOPURINOL 100 MG TABLET PO SCH (09:43)
[2016-12-10] MEDS: DILTIAZEM HCL 240 MG CAPSULE.CR PO SCH (09:43)
[2016-12-10] MEDS: OMEGA-3 ACID ETHYL ESTERS 1 GM CAPSULE PO SCH (09:44)
[2016-12-10] MEDS: SODIUM CHLORIDE NASAL SPRAY 44 ML NASL SCH ×2 (09:45→11:43)
[2016-12-10 11:36] VITALS: BP 123/40
--- NOTE | 2016-12-10 14:33 | PDOC PROGRESS REPORT ---
Subjective Progress Note for:: 12/10/16 Subjective:: Patient denies any complaints. Physical Exam Vital Signs: Temp Pulse Resp BP Pulse Ox 98.4 F 60 19 123/40 L 99 12/10/16 11:24 12/10/16 11:24 12/10/16 11:24 12/10/16 11:24 12/10/16 11:24 Intake & Output 12/09/16 12/10/16 12/11/16 06:59 06:59 06:59 Intake Total 2103 1247 300 Output Total 2250 1150 Balance -147 97 300 Weight 75.5 kg 74.8 kg General appearance: PRESENT: no acute distress Eye exam: PRESENT: conjunctiva pink. ABSENT: scleral icterus Mouth exam: PRESENT: moist, tongue midline Neck exam: ABSENT: JVD Respiratory exam: PRESENT: clear to auscultation dion. ABSENT: rales, rhonchi, wheezes Cardiovascular exam: PRESENT: RRR, systolic murmur. ABSENT: diastolic murmur, rubs GI/Abdominal exam: PRESENT: normal bowel sounds, soft. ABSENT: distended, guarding, mass, organolmegaly, rebound, tenderness Extremities exam: ABSENT: calf tenderness, clubbing, pedal edema Neurological exam: PRESENT: alert, awake, oriented to person, oriented to place , oriented to time, oriented to situation, CN II-XII grossly intact. ABSENT: motor sensory deficit Psychiatric exam: PRESENT: appropriate affect, normal mood Skin exam: PRESENT: dry, intact, warm. ABSENT: cyanosis, rash Results Laboratory Results: 12/09/16 03:35 12/10/16 04:10 12/10/16 04:10 Sodium 128.7 L Potassium 4.0 Chloride 85 L Carbon Dioxide 33 H Anion Gap 11 BUN 61 H Creatinine 1.65 H Est GFR ( Amer) 36 L Est GFR (Non-Af Amer) 30 L Glucose 187 H Calcium 10.4 H 12/08/16 02:26 Clean Catch Midstream Urine Culture - Final Enterococcus Faecalis(Group D) 11/28/16 11/28/16 11/28/16 11:15 11:15 11:15 Creatine Kinase < 20 L CK-MB (CK-2) 0.51 Troponin I 0.077 NT-Pro-B Natriuret Pep 1730 H 11/28/16 11/28/16 11/28/16 17:12 17:12 23:10 Creatine Kinase 23 L 23 L CK-MB (CK-2) 1.01 Troponin I 0.284 NT-Pro-B Natriuret Pep 11/28/16 11/29/16 11/29/16 23:10 11:30 11:30 Creatine Kinase 22 L CK-MB (CK-2) 0.82 0.53 Troponin I 0.684 0.376 NT-Pro-B Natriuret Pep Impressions: Abdomen/Pelvis CT 11/25/16 07:56 IMPRESSION: Diverticulosis. No acute findings. Chest X-Ray 12/02/16 06:00 IMPRESSION: Stable basilar opacity-effusion. Assessment & Plan - Diagnosis (1) Diabetes mellitus type 2 Is this a current diagnosis for this admission?: Yes (2) Acute renal failure Qualifiers: Acute renal failure type: unspecified Qualified Code(s): N17.9 - Acute kidney failure, unspecified Is this a current diagnosis for this admission?: Yes (3) CHF (congestive heart failure) Qualifiers: Congestive heart failure type: diastolic Congestive heart failure chronicity: chronic Qualified Code(s): I50.32 - Chronic diastolic ( congestive) heart failure Is this a current diagnosis for this admission?: Yes (4) COPD (chronic obstructive pulmonary disease) Qualifiers: Emphysema type: unspecified Is this a current diagnosis for this admission?: Yes (5) Chronic kidney disease (CKD) Qualifiers: Chronic kidney disease stage: stage 3 (moderate) Qualified Code(s): N18.3 - Chronic kidney disease, stage 3 (moderate) Is this a current diagnosis for this admission?: Yes (6) Coronary artery disease Qualifiers: Coronary Disease-Associated Artery/Lesion type: [place] artery [place] vs. transplanted heart: [place] heart Associated angina: without angina Qualified Code(s): I25.10 - Atherosclerotic heart disease of [place] coronary artery without angina pectoris Is this a current diagnosis for this admission?: Yes (7) Diverticulitis large intestine Qualifiers: Diverticulitis bleeding: with bleeding Is this a current diagnosis for this admission?: Yes (8) Pulmonary hypertension Is this a current diagnosis for this admission?: Yes - Time Time Spent with patient: 25-34 minutes - Plan Summary Plan Summary: The patient had a discharge summary dictated yesterday. The patient is noted to have a possible urinary tract infection and will be sent home with doxycycline. Otherwise nothing has changed from yesterday's dictation.
== END 2016-12-10 13:30 | disposition home health service (06) | DRG 377 ==
LOC: ER 05:31 → UNDOADMOB 11:28 → EH 11:28 → 5 17:00 → EH 17:26 → OBSVTOIN 11-26 08:34 → ICU 11-28 12:55 → 3N 11-30 18:19
PROVIDERS: ATTEND Family Medicine
PROC: 30233N1 Transfusion of Nonautologous Red Blood Cells into Peripheral Vein, Percutaneous Approach (ICD-10-PCS; principal; 2016-11-27)
PROC: 5A09457 Assistance with Respiratory Ventilation, 24-96 Consecutive Hours, Continuous Positive Airway Pressure (ICD-10-PCS; 2016-11-28)
DX: K57.33 Diverticulitis of large intestine without perforation or abscess with bleeding (principal); I50.43 Acute on chronic combined systolic (congestive) and diastolic (congestive) heart failure; J96.01 Acute respiratory failure with hypoxia; I13.2 Hypertensive heart and chronic kidney disease with heart failure and with stage 5 chronic kidney disease, or end stage renal disease; N18.5 Chronic kidney disease, stage 5; N17.9 Acute kidney failure, unspecified; D62 Acute posthemorrhagic anemia; E11.22 Type 2 diabetes mellitus with diabetic chronic kidney disease; D63.1 Anemia in chronic kidney disease; I25.10 Atherosclerotic heart disease of native coronary artery without angina pectoris; K21.9 Gastro-esophageal reflux disease without esophagitis; M10.9 Gout, unspecified; I48.91 Unspecified atrial fibrillation; E11.51 Type 2 diabetes mellitus with diabetic peripheral angiopathy without gangrene; E78.5 Hyperlipidemia, unspecified; J44.9 Chronic obstructive pulmonary disease, unspecified; G43.909 Migraine, unspecified, not intractable, without status migrainosus; I08.3 Combined rheumatic disorders of mitral, aortic and tricuspid valves; F32.9 Major depressive disorder, single episode, unspecified; G47.30 Sleep apnea, unspecified; K29.70 Gastritis, unspecified, without bleeding; M19.90 Unspecified osteoarthritis, unspecified site; K44.9 Diaphragmatic hernia without obstruction or gangrene; E87.6 Hypokalemia; K58.9 Irritable bowel syndrome, unspecified; B95.2 Enterococcus as the cause of diseases classified elsewhere; E66.01 Morbid (severe) obesity due to excess calories; Z68.31 Body mass index [BMI] 31.0-31.9, adult; Z79.4 Long term (current) use of insulin; Z99.81 Dependence on supplemental oxygen; Z87.891 Personal history of nicotine dependence; Z66 Do not resuscitate; Z79.82 Long term (current) use of aspirin; Z86.73 Personal history of transient ischemic attack (TIA), and cerebral infarction without residual deficits; Z79.899 Other long term (current) drug therapy; Z86.010 Personal history of colon polyps; Z85.3 Personal history of malignant neoplasm of breast; Z85.828 Personal history of other malignant neoplasm of skin; Z90.49 Acquired absence of other specified parts of digestive tract; Z90.710 Acquired absence of both cervix and uterus; Z95.0 Presence of cardiac pacemaker; Z88.6 Allergy status to analgesic agent; Z88.0 Allergy status to penicillin; Z88.2 Allergy status to sulfonamides; Z88.8 Allergy status to other drugs, medicaments and biological substances; Z91.041 Radiographic dye allergy status; Z83.3 Family history of diabetes mellitus; Z82.49 Family history of ischemic heart disease and other diseases of the circulatory system; Z80.6 Family history of leukemia; Z80.3 Family history of malignant neoplasm of breast; Z80.1 Family history of malignant neoplasm of trachea, bronchus and lung
CPT/HCPCS: 36415; 36430; 36600; 71010; 71020; 74176; 80048; 80053; 81001; 82272; 82550; 82553; 82803; 82962; 83605; 83690; 83735; 83880; 84100; 84134; 84484; 85025; 85027; 85610; 85730; 86850; 86870; 86900; 86901; 86920; 86922; 87045; 87086; 87088; 87186; 87205; 87493; 89055; 93005; 93010; 94660; 94799; 96361; 96374; 96375; 99285; A9270-GY; G0378; G8978-GP; G8979-GP; J0744; J1335; J1815; J1940; J2270; J2405; J3475; J3480; J3490; J7030; J7050; P9016; Q4081; S0119; S0164

== ENCOUNTER 2016-12-14 22:30 | Inpatient (IN) | payer MEDICARE, MEDICAID ==
[2016-12-14] MEDS ORDERED: FUROSEMIDE INJ/PF 40 MG/4 ML SDV IV ONE (22:43)
[2016-12-14] MEDS ORDERED: NITROGLYCERIN 2% OINTMENT 1 GM PACKET TP ONE (22:44)
--- NOTE | 2016-12-14 23:16 | ER Document Report ---
ED General - General Chief Complaint: Shortness Of Breath Stated Complaint: DIFFICULTY BREATHING Notes: Patient is an 81-year-old female who presents with complaints of difficulty breathing. 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 She does have a pacemaker in place. She says that recently her Lasix was decreased from 3 pills a day to 2 pills a day. She denies any fevers. No vomiting. No diarrhea. No chest pain. No abdominal pain. She says her extremities and abdomen have also swelled up which has happened in the past whenever she becomes fluid overloaded. TRAVEL OUTSIDE OF THE [place] IN LAST 30 DAYS: No - Related Data Allergies/Adverse Reactions: codeine [Codeine] Allergy (Severe, Verified 09/29/16 09:18) Hospitalized Penicillins Allergy (Severe, Verified 09/29/16 09:18) Redness, heat, swelling at site promethazine HCl [From Phenergan] Allergy (Unknown, Verified 09/29/16 09:18) PROBLEMS WITH LEGS Sulfa (Sulfonamide Antibiotics) Allergy (Unknown, Verified 09/29/16:18) Unknown reaction hydralazine HCl [From Apresoline] Adverse Reaction (Severe, Verified 09/29/16 09 :18) Cardiac arrest atorvastatin calcium [From Lipitor] Adverse Reaction (Verified 09/29/16 09:18) IV Contrast Allergy (Severe, Uncoded 09/29/16 09:18) ESRD Past Medical History - Social History Smoking Status: Unknown if Ever Smoked Frequency of alcohol use: None Drug Abuse: None Family History: CAD, DM, Hyperlipidemia, Hypertension - Past Medical History Cardiac Medical History: Reports: Hx Atrial Fibrillation, Hx Congestive Heart Failure, Hx Coronary Artery Disease, Hx Hypercholesterolemia, Hx Hypertension, Hx Peripheral Vascular Disease, Hx Heart Murmur Denies: Hx Heart Attack, Hx Pulmonary Embolism Pulmonary Medical History: Reports: Hx Asthma, Hx Bronchitis, Hx COPD, Hx Pneumonia Denies: Hx Respiratory Failure, Hx Sleep Apnea, Hx Tuberculosis Neurological Medical History: Reports: Hx Migraine. Denies: Hx Cerebrovascular Accident, Hx Seizures Endocrine Medical History: Reports: Hx Diabetes Mellitus Type 1, Hx Diabetes Mellitus Type 2. Denies: Hx Graves' Disease, Hx Hyperthyroidism, Hx Hypothyroidism Renal/ Medical History: Denies: Hx End Stage Renal Disease, Hx Kidney Stones, Hx Ovarian Cysts, Hx Peritoneal Dialysis, Hx Pelvic Inflammatory Disease Malignancy Medical History: Reports: Hx Breast Cancer, Hx Skin Cancer - Basal cell. Denies: Hx Cervical Cancer, Hx Leukemia, Hx Lung Cancer, Hx Ovarian Cancer GI Medical History: Reports: Hx Diverticulitis, Hx Gastroesophageal Reflux Disease, Hx Irritable Bowel, Hx Ulcer. Denies: Hx Crohn's Disease, Hx Hiatal Hernia, Hx Liver Failure Musculoskeltal Medical History: Reports Hx Arthritis, Denies Hx Fibromyalgia, Reports Hx Gout, Denies Hx Multiple Sclerosis, Denies Hx Muscular Dystrophy Psychiatric Medical History: Reports: Hx Depression Denies: Hx Bipolar Disorder, Hx Dementia, Hx Post Traumatic Stress Disorder, Hx Schizophrenia Traumatic Medical History: Reports: Hx Fractures Infectious Medical History: Denies: Hx HIV Past Surgical History: Reports: Hx Abdominal Surgery - Abdominal and umbilical hernia, Hx Appendectomy, Hx Bowel Surgery - Instetinal bleed surgically repaired in the s, Hx Cholecystectomy, Hx Herniorrhaphy, Hx Hysterectomy, Hx Kidney (Renal Surgery) - Left kidney stent, Hx Pacemaker, Hx Thyroid Surgery , Other - Previous EGDs and colonoscopies, breast lumpectomy. Denies: Hx Section, Hx Colostomy, Hx Coronary Artery Bypass Graft, Hx Gastric Bypass Surgery, Hx Mastectomy, Hx Tonsillectomy, Hx Tubal Ligation - Immunizations Hx Diphtheria, Pertussis, Tetanus Vaccination: No - Tetanus out of date Hx Pneumococcal Vaccination: 07/18/14 Review of Systems - Review of Systems Notes: My Normal Review Basic REVIEW OF SYSTEMS: CONSTITUTIONAL : Denies fever, chills, or sweats. Denies recent illness. EENT: Denies eye, ear, throat, or mouth pain or symptoms. Denies nasal or sinus congestion. CARDIOVASCULAR: Denies chest pain. RESPIRATORY: Denies cough, cold, or chest congestion. Denies shortness of breath, difficulty breathing, or wheezing. GASTROINTESTINAL: Denies abdominal pain. Denies nausea, vomiting, or diarrhea. Denies constipation. Last BM: GENITOURINARY: Denies difficulty urinating, painful urination, burning, frequency, or blood in urine. MUSCULOSKELETAL:extremity edema SKIN: Denies rash or skin lesions. NEUROLOGICAL: Denies altered mental status or loss of consciousness. Denies headache. Denies weakness or paralysis or loss of use of either side. Denies problems with gait or speech. Denies sensory or motor loss. ALL OTHER SYSTEMS REVIEWED AND NEGATIVE. Physical Exam - Vital signs Vitals: BP 131/72 H 12/14/16 22:35 - Notes Notes: General Appearance: Well nourished, alert, cooperative, moderate acute distress , no obvious discomfort. Vitals: reviewed, See vital signs table. Head: no swelling or tenderness to the head Eyes: PERRL, EOMI, Conjuctiva clear Mouth: No decreasd moisture Neck: Supple, no neck tenderness, No thyromegaly Lungs: Bilateral basal rales. Accessory muscle use. Tachypnea. Heart: Normal rate, Regular rythm, No murmur, no rub Abdomen: Normal BS, soft, No rigidity, No abdominal tenderness, No guarding, no rebound, no abdominal masses, no organomegaly Extremities: strength 5/5 in all extremities, good pulses in all extremities, no swelling or tenderness in the extremities, no edema. Skin: warm, dry, appropriate color, no rash Neuro: speech clear, oriented x 3, normal affect, responds appropriately to questions. Course - Re-evaluation Re-evalutation: 12/14/16 23:21 On reevaluation patient is looking much more comfortable in the BiPAP. We will continue monitoring the patient until lab results are back. - Vital Signs Vital signs: Temp Pulse Resp BP Pulse Ox 98.7 F 60 18 131/52 H 95 12/15/16 04:17 12/15/16 04:36 12/15/16 04:17 12/15/16 04:17 12/15/16 04:17 - Laboratory Result Diagrams: 12/15/16 00:01 12/14/16 23:10 Laboratory results interpreted by me: 12/14/16 12/14/16 12/15/16 23:10 23:10 00:01 RBC 3.50 L Hgb 10.6 L Hct 31.6 L RDW 16.1 H Seg Neutrophils % 82.4 H Lymphocytes % 9.2 L Sodium 127.0 L Potassium 6.4 H* Chloride 88 L BUN 78 H Creatinine 2.32 H Est GFR ( Amer) 24 L Est GFR (Non-Af Amer) 20 L Glucose 308 H Calcium 10.5 H Creatine Kinase < 20 L NT-Pro-B Natriuret Pep 1120 H - EKG Interpretation by Me Additional EKG results interpreted by me: 12/14/16 23:15 EKG is reviewed and interpreted by me. EKG shows atrial paced rhythm with rate of 60 bpm. MO interval is within normal range. QRS duration is prolonged. QTc interval is within normal range. Old EKG for comparison is from 2016. ST segment changes are as expected for a paced rhythm. - Transfer of Care Notes: 12/15/16 01:26 Patient improves the flow with a BiPAP. Patient will be admitted for further treatment of pulmonary edema. She does have some renal sufficiency with hyperkalemia. She was given bicarbonate, insulin, and Lasix. I did speak with the hospitalist who agrees to admit the patient. 12/15/16 01:26 12/15/16 01:27 Dictation of this chart was performed using voice recognition software; therefore, there may be some unintended grammatical errors. 12/15/16 05:51 Discharge - Discharge Clinical Impression: Hyperkalemia, Renal insufficiency Pulmonary edema Qualifiers: Chronicity: acute Qualified Code(s): J81.0 - Acute pulmonary edema Condition: Stable Disposition: ADMITTED INPATIENT Admitting Provider: Hospitalist Unit Admitted: [facility]
[2016-12-14 23:56] LABS: ALANINE AMINOTRANSFERASE 34 U/L (9-52); ALBUMIN 4.1 g/dL (3.5-5.0); ALKALINE PHOSPHATASE 125 U/L (38-126); ANION GAP 15 (5-19); ASPARTATE AMINO TRANSFERASE 24 U/L (14-36); BILIRUBIN,DIRECT 0.3 mg/dL (0.0-0.4); BILIRUBIN,TOTAL 0.7 mg/dL (0.2-1.3); BLOOD UREA NITROGEN 78 mg/dL (7-20); CALCIUM 10.5 mg/dL (8.4-10.2); CARBON DIOXIDE 24 mmol/L (22-30); CHLORIDE 88 mmol/L (98-107); CREATININE RESULT 2.32 mg/dL (0.52-1.25); GLUCOSE 308 mg/dL (75-110); TOTAL PROTEIN 6.7 g/dL (6.3-8.2)
[2016-12-14 23:58] LABS: CREATINE KINASE < 20 U/L (30-135)
[2016-12-15 00:01] LABS: POTASSIUM 6.4 mmol/L (3.6-5.0)
[2016-12-15 00:08] LABS: ABSOLUTE EOSINOPHILS # (AUTO) 0.1 10^3/uL (0.0-0.6); ABSOLUTE LYMPHOCYTES (AUTO) 0.5 10^3/uL (0.5-4.7); ABSOLUTE MONOCYTES (AUTO) 0.4 10^3/uL (0.1-1.4); ABSOLUTE NEUT (AUTO) 4.8 10^3/uL (1.7-8.2); BASOPHILS % (AUTO) 0.8 % (0-2); EOSINOPHILS % (AUTO) 1.5 % (0-6); HEMATOCRIT 31.6 % (36.0-47.0); HEMOGLOBIN 10.6 g/dL (12.0-15.5); HGB HCT DIFFERENCE 0.2; LYMPHOCYTES % (AUTO) 9.2 % (13-45); MEAN CORPUSCULAR HEMOGLOBIN 30.2 pg (27.0-33.4); MEAN CORPUSCULAR HGB CONC 33.5 g/dL (32.0-36.0); MEAN CORPUSCULAR VOLUME 90 fl (80-97); MONOCYTES % (AUTO) 6.1 % (3-13); RED CELL DISTRIBUTION WIDTH 16.1 % (11.5-14.0); SEGMENTED NEUTROPHILS % (AUTO) 82.4 % (42-78); WHITE BLOOD COUNT 5.8 10^3/uL (4.0-10.5)
[2016-12-15] MEDS ORDERED: INSULIN REG, HUMAN 100 UNIT/ML 3 ML VIAL (PYX) IV ONE (00:14)
[2016-12-15] MEDS ORDERED: SODIUM BICARBONATE 8.4% INJ 50 MEQ/50 ML DISP.SYRIN IV ONE (00:14)
[2016-12-15 00:15] LABS: CREATINE KINASE MB 0.47 ng/mL (<4.55); TROPONIN I 0.013 ng/mL
[2016-12-15] MEDS ORDERED: DEXTROSE 40% GEL 15 GM TUBE PO PRN ×2 (02:20)
[2016-12-15] MEDS ORDERED: GLUCAGON,HUMAN RECOMB 1 MG INJ IM PRN (02:20)
[2016-12-15] MEDS ORDERED: DEXTROSE 50%-WATER 25 GM/50 ML DISP.SYRIN IV PRN ×2 (02:20)
[2016-12-15] MEDS ORDERED: LACTULOSE SYRUP 20 GM/30 ML UDCUP PO ONE ×2 (02:26→05:45)
[2016-12-15] MEDS ORDERED: ACETAMINOPHEN 325 MG TABLET PO PRN (02:26)
--- NOTE | 2016-12-15 03:24 | PDOC H&P ---
History of Present Illness Admission Date/PCP: 12/15/16 01:48 YO CHASE, Patient complains of: Shortness of breath History of Present Illness: JACINTA LUNSFORD is a 81 year old female with a past medical history of multifactorial shortness of breath with obesity, COPD, mitral regurgitation, diastolic dysfunction, atelectasis, chronic constipation and now cardiorenal syndrome who presents after developing shortness of breath over the last 2 days. Patient has had recent reduction of Lasix secondary to worsening cardiorenal syndrome. In the emergency room she is found to have clinical pulmonary edema and started on BiPAP improving symptoms. She is also found to have hyponatremia, worsening renal failure and hyperkalemia and is referred to the hospitalist for admission. He denies chest pain nausea vomiting but admits to left lower quadrant pain and constipation. Patient and daughter are very upset regarding patient's lack of improvement and are concerned for recurrent admissions, uncontrolled hyperglycemia and recent reduction in Lasix dose. Patients daughter multiple complaints regarding the use of the humidifier with BiPAP and the belief it will worsen her mother's respiratory status and reluctance of M.D. to place Ramon catheter to "suck out "the extra fluid. Patient upset she feels hypoglycemic and has not had blood sugar checked, Accu-Chek reveals a blood sugar of greater than 200. Patient and daughter do not wish to discuss advanced care planning at this time. Past Medical History Cardiac Medical History: Reports: Atrial Fibrillation, Congestive Heart Failure , Coronary Artery Disease, Hyperlipidema, Hypertension, Peripheral Vascular Disease, Heart Murmur Denies: Myocardial Infarction, Pulmonary Embolism Pulmonary Medical History: Reports: Asthma, Bronchitis, Chronic Obstructive Pulmonary Disease (COPD), Pneumonia Denies: Respiratory Failure, Sleep Apnea, Tuberculosis Neurological Medical History: Reports: Migraine Denies: Seizures Endocrine Medical History: Reports: Diabetes Mellitus Type 1, Diabetes Mellitus Type 2 Denies: Hyperthyroidism, Hypothyroidism Renal/ Medical History: Denies: End Stage Renal Disease Malignancy Medical History: Reports: Breast Cancer, Skin Cancer - Basal cell Denies: Cervical Cancer, Leukemia, Lung Cancer, Ovarian Cancer GI Medical History: Reports: Diverticulitis, Gastroesophageal Reflux Disease, Other - Chronic constipation Denies: Crohn's Disease, Hiatal Hernia Musculoskeltal Medical History: Reports: Arthritis, Gout, Other - Profound debility Denies: Fibromyalgia Psychiatric Medical History: Reports: Depression Denies: Bipolar Disorder, Dementia, Post Traumatic Stress Disorder Hematology: Reports: Anemia Denies: Hemophilia, Sickle Cell Disease Infectious Medical History: Denies: HIV Past Surgical History Past Surgical History: Reports: Appendectomy, Cholecystectomy, Herniorrhaphy, Hysterectomy, Pacemaker, Other - Previous EGDs and colonoscopies, breast lumpectomy Denies: Amputation, Section, Colostomy, Coronary Artery Bypass Graft , Gastric Bypass Surgery, Mastectomy, Tonsillectomy, Tubal Ligation Social History Information Source: Patient, Relative, [facility] Records Lives with: Family Smoking Status: Unknown if Ever Smoked Frequency of Alcohol Use: None Hx Recreational Drug Use: No Drugs: None Hx Prescription Drug Abuse: No - Advance Directive Resuscitation Status: Full Code Family History Family History: CAD, DM, Hyperlipidemia, Hypertension Parental Family History Reviewed: Yes Children Family History Reviewed: Yes Sibling(s) Family History Reviewed.: Yes Medication/Allergy Home Medications: Allopurinol [Zyloprim 100 mg Tablet] 100 mg PO DAILY 11/25/16 Anastrozole [Arimidex 1 mg Tablet] 1 mg PO DAILY 11/25/16 Ascorbic Acid [Vitamin C 500 mg Tablet] 500 mg PO DAILY 11/25/16 Aspirin [Adult Low Dose Aspirin EC] 81 mg PO DAILY 11/25/16 Diltiazem HCl [Cardizem Cd 240 mg Capsule.cr] 240 mg PO Q12 11/25/16 Famotidine [Pepcid 20 mg Tablet] 20 mg PO Q12 11/25/16 Fenofibrate Nanocrystallized [Triglide] 160 mg PO DAILY 11/25/16 Fluticasone Propionate [Flonase Nasal [place] 50 Mcg/[place] 16 gm] 1 spray NASL Q12 11/25/16 Gabapentin [Neurontin 100 mg Capsule] 300 mg PO QHS 11/25/16 Hydrocodone/Acetaminophen [[place] 10-325 mg Tablet] 1 tab PO QIDP PRN 11/25/16 Magnesium Oxide [Mag-Ox 400 mg Tablet] 400 mg PO TID 11/25/16 Nitroglycerin [Nitrostat 0.4 mg (1/150 Gr) Tabs 25/Bottle] 0.4 mg SL Q5MP PRN [place]-3 Acid Ethyl Esters [Lovaza 1 gm Capsule] 2 gm PO BID 11/25/16 Ondansetron HCl [Zofran 8 mg Tablet] 8 mg PO Q8HP PRN 11/25/16 Paroxetine HCl [Paxil 20 mg Tablet] 20 mg PO QAM 11/25/16 Potassium Chloride [K-Tab ER] 20 meq PO BID 11/25/16 Rosuvastatin Calcium [Crestor 10 mg Tablet] 10 mg PO DAILY 11/25/16 Carvedilol [Coreg 6.25 mg Tablet] 25 mg PO Q12 #60 tablet 12/09/16 Cetirizine HCl [Zyrtec 10 mg Tablet] 10 mg PO DAILY PRN #0 12/09/16 Hc Acetate/Pramoxine HCl [Epifoam Hc 1% Aerosol Foam] 1 applic TP TIDP PRN 30 Days 12/09/16 Insulin Glargine,Hum.rec.anlog [Lantus Insulin 100 Unit/mL] 30 unit SUBCUT DAILY 30 Days 12/09/16 Isosorbide Mononitrate [Imdur 30 mg Tablet.er] 120 mg PO QHS #30 tab.er.24h Simethicone [Mylicon 80 mg Chewable Tablet] 80 mg PO Q6HP PRN tab.chew Torsemide [Demadex 20 mg Tablet] 40 mg PO BID #60 tablet 12/09/16 Doxycycline Hyclate 100 mg PO BID #10 capsule 12/10/16 Allergies/Adverse Reactions: codeine [Codeine] Allergy (Severe, Verified 09/29/16 09:18) Hospitalized Penicillins Allergy (Severe, Verified 09/29/16 09:18) Redness, heat, swelling at site promethazine HCl [From Phenergan] Allergy (Unknown, Verified 09/29/16 09:18) PROBLEMS WITH LEGS Sulfa (Sulfonamide Antibiotics) Allergy (Unknown, Verified 09/29/16 09:18) Unknown reaction hydralazine HCl [From Apresoline] Adverse Reaction (Severe, Verified 09/29/16 09 :18) Cardiac arrest atorvastatin calcium [From Lipitor] Adverse Reaction (Verified 09/29/16 09:18) IV Contrast Allergy (Severe, Uncoded 09/29/16 09:18) ESRD Review of Systems Constitutional: PRESENT: as per HPI, fatigue, weakness Eyes: ABSENT: visual disturbances Ears: ABSENT: hearing changes Cardiovascular: PRESENT: dyspnea on exertion, edema, orthropnea. ABSENT: chest pain, palpitations Respiratory: PRESENT: dyspnea. ABSENT: cough, hemoptysis, sputum Gastrointestinal: PRESENT: bloating, constipation. ABSENT: abdominal pain, nausea, vomiting Genitourinary: ABSENT: dysuria, hematuria Musculoskeletal: ABSENT: joint swelling Integumentary: ABSENT: rash, wounds Neurological: ABSENT: abnormal gait, abnormal speech, confusion, dizziness, focal weakness, syncope Psychiatric: ABSENT: anxiety, depression, homidical ideation, suicidal ideation Endocrine: ABSENT: cold intolerance, heat intolerance, polydipsia, polyuria Hematologic/Lymphatic: ABSENT: easy bleeding, easy bruising Physical Exam Vital Signs: Temp Pulse Resp BP Pulse Ox 98.1 F 60 18 131/72 H 96 12/14/16 23:09 12/14/16 23:09 12/15/16 00:00 12/14/16 23:09 12/15/16 00:00 General appearance: PRESENT: cooperative, mild distress - With BiPAP, obese Head exam: PRESENT: atraumatic, normocephalic Eye exam: PRESENT: conjunctiva pink, EOMI, PERRLA. ABSENT: scleral icterus Ear exam: PRESENT: normal external ear exam Mouth exam: PRESENT: moist, tongue midline Neck exam: ABSENT: carotid bruit, JVD, lymphadenopathy, thyromegaly Respiratory exam: PRESENT: crackles, prolonged expiratory phas, tachypnea. ABSENT: rales, rhonchi, wheezes Cardiovascular exam: PRESENT: RRR, systolic murmur. ABSENT: diastolic murmur, rubs Pulses: PRESENT: normal dorsalis pedis pul, +1 pedal pulses bilateral GI/Abdominal exam: PRESENT: hypoactive bowel sounds, normal bowel sounds, soft, tenderness - Left lower quadrant tenderness. ABSENT: distended, guarding, mass , organolmegaly, rebound Rectal exam: PRESENT: deferred Extremities exam: PRESENT: +1 edema. ABSENT: joint swelling, tenderness Neurological exam: PRESENT: alert, awake, oriented to person, oriented to place , oriented to time, oriented to situation, CN II-XII grossly intact. ABSENT: motor sensory deficit Psychiatric exam: PRESENT: appropriate affect, normal mood. ABSENT: homicidal ideation, suicidal ideation Skin exam: PRESENT: dry, intact, warm. ABSENT: cyanosis, rash Assessment & Plan - Diagnosis (1) Acute kidney injury superimposed on chronic kidney disease Is this a current diagnosis for this admission?: YesPlan: Consistent with cardiorenal syndrome previously described by nephrology will reconsult Dr. De Luna, avoid nephrotoxic meds and doses reevaluate chemistry (2) CHF (congestive heart failure) Qualifiers: Congestive heart failure type: diastolic Congestive heart failure chronicity: chronic Qualified Code(s): I50.32 - Chronic diastolic ( congestive) heart failure Is this a current diagnosis for this admission?: YesPlan: Acute on chronic uncompensated and Complicated by mitral regurgitation. Blood pressure and heart rate appear currently controlled. I'm concerned for possible obstructive sleep apnea and will continue a trial of BiPAP and obtain cardiology consultation. Will evaluate cardiac enzymes and TSH (3) COPD (chronic obstructive pulmonary disease) Qualifiers: Emphysema type: unspecified Is this a current diagnosis for this admission?: YesPlan: Albuterol and Atrovent when necessary, incentive spirometry, consider flutter valve (4) Diabetes mellitus type I Qualifiers: Diabetes mellitus complication status: with unspecified complications Qualified Code(s): E10.8 - Type 1 diabetes mellitus with unspecified complications Is this a current diagnosis for this admission?: YesPlan: Long-acting insulin with Lantus and Humalog sliding scale with meals (5) Generalized weakness Is this a current diagnosis for this admission?: YesPlan: Severe deconditioning consider physical therapy if able to tolerate (6) Hyponatremia Is this a current diagnosis for this admission?: YesPlan: Unclear volume status serum and urine osmolarity pending - Time Time Spent: 50 to 70 Minutes - Inpatient Certification Medical Necessity: Need Close Monitoring Due to Risk of Patient Decompensation
[2016-12-15 04:38] LABS: APPEARANCE,URINE CLEAR; BILIRUBIN,URINE NEGATIVE (NEGATIVE); GLUCOSE, URINE NEGATIVE (NEGATIVE); KETONES,URINE NEGATIVE (NEGATIVE); LEUKOCYTE ESTERASE,URINE NEGATIVE (NEGATIVE); NITRITE,URINE NEGATIVE (NEGATIVE); PROTEIN,URINE NEGATIVE (NEGATIVE); URINE SPECIFIC GRAVITY 1.009; UROBILINOGEN,URINE NEGATIVE mg/dL (<2.0)
[2016-12-15 05:06] LABS: URINE POTASSIUM 57.5 mmol/L (22-164)
[2016-12-15] MEDS ORDERED: IPRATROPIUM/ALBUTEROL 0.5-2.5 MG/3 ML AMPUL NEB PRN (06:51)
[2016-12-15] MEDS ORDERED: NORMAL SALINE 1000 ML 500 ML IV PRN (06:51)
[2016-12-15 08:10] LABS: ANION GAP 11 (5-19); BLOOD UREA NITROGEN 82 mg/dL (7-20); CALCIUM 10.7 mg/dL (8.4-10.2); CARBON DIOXIDE 29 mmol/L (22-30); CHLORIDE 90 mmol/L (98-107); CREATININE RESULT 2.37 mg/dL (0.52-1.25); GLUCOSE 196 mg/dL (75-110); POTASSIUM 5.8 mmol/L (3.6-5.0); SODIUM 130.2 mmol/L (137-145)
[2016-12-15] MEDS: MAGNESIUM OXIDE 400 MG TABLET PO SCH ×3 (09:43→17:36)
[2016-12-15] MEDS: ASPIRIN 81 MG TABLET, ENT COATED PO SCH (09:43)
[2016-12-15] MEDS: INSULIN LISPRO 100 UNIT/ML 3 ML VIAL SUBCUT PRN ×3 (09:44→23:00)
--- NOTE | 2016-12-15 10:13 | EKG REPORT ---
SEVERITY:- ABNORMAL ECG - ATRIAL-PACED RHYTHM NONSPECIFIC INTRAVENTRICULAR CONDUCTION DELAY LBBB TYPE CONSIDER LEFT VENTRICULAR HYPERTROPHY : Confirmed by: Jay Porter 15-Dec-2016 10:12:20
[2016-12-15] MEDS: HEPARIN SOD (PORCINE) 5,000 UNIT/ML 1 ML SYRINGE SUBCUT SCH ×2 (13:41→22:02)
[2016-12-15 14:17] LABS: ANION GAP 14 (5-19); BLOOD UREA NITROGEN 80 mg/dL (7-20); CALCIUM 10.5 mg/dL (8.4-10.2); CARBON DIOXIDE 27 mmol/L (22-30); CHLORIDE 90 mmol/L (98-107); CREATININE RESULT 2.13 mg/dL (0.52-1.25); GLUCOSE 192 mg/dL (75-110); POTASSIUM 5.6 mmol/L (3.6-5.0); SODIUM 130.9 mmol/L (137-145)
--- NOTE | 2016-12-15 14:17 | PDOC PROGRESS REPORT ---
Subjective Progress Note for:: 12/15/16 Subjective:: Patient states is still short of breath she's on BiPAP support She has no chest pain no fever no chills Physical Exam Vital Signs: Temp Pulse Resp BP Pulse Ox 98.1 F 59 L 20 129/53 H 96 12/15/16 11:23 12/15/16 11:54 12/15/16 11:23 12/15/16 11:23 12/15/16 11:54 Intake & Output 12/14/16 12/15/16 12/16/16 00:59 00:59 00:59 Intake Total 237 Balance 237 General appearance: PRESENT: mild distress Head exam: PRESENT: atraumatic, normocephalic Eye exam: PRESENT: conjunctiva pale, PERRLA. ABSENT: scleral icterus Neck exam: ABSENT: carotid bruit, JVD, lymphadenopathy, thyromegaly Respiratory exam: PRESENT: clear to auscultation dion, rales - Both bases with decreased breath sounds. ABSENT: rhonchi, wheezes Cardiovascular exam: PRESENT: RRR GI/Abdominal exam: PRESENT: distended. ABSENT: guarding, tenderness Extremities exam: PRESENT: full ROM. ABSENT: calf tenderness, clubbing, pedal edema Neurological exam: PRESENT: alert, awake, CN II-XII grossly intact Results Laboratory Results: 12/15/16 07:27 Sodium 130.2 L Potassium 5.8 H Chloride 90 L Carbon Dioxide 29 Anion Gap 11 BUN 82 H Creatinine 2.37 H Est GFR ( Amer) 24 L Est GFR (Non-Af Amer) 20 L Glucose 196 H Calcium 10.7 H Magnesium 2.0 Impressions: Renal Ultrasound 12/15/16 00:00 IMPRESSION: 1. Left renal atrophy relative to the right kidney. No obstructive changes. 2. Bladder looks relatively unremarkable, fairly nondistended. Abdomen X-Ray 12/15/16 02:51 IMPRESSION: NO RADIOGRAPHIC EVIDENCE FOR ACUTE ABDOMINAL DISEASE. Assessment & Plan - Diagnosis (1) Acute kidney injury superimposed on chronic kidney disease Is this a current diagnosis for this admission?: Yes (2) CHF (congestive heart failure) Qualifiers: Congestive heart failure type: combined Congestive heart failure chronicity: chronic Qualified Code(s): I50.42 - Chronic combined systolic (congestive) and diastolic (congestive) heart failure Is this a current diagnosis for this admission?: Yes (3) Hyperkalemia Is this a current diagnosis for this admission?: Yes (4) COPD (chronic obstructive pulmonary disease) Qualifiers: Emphysema type: unspecified Is this a current diagnosis for this admission?: Yes (5) Diabetes mellitus type I Qualifiers: Diabetes mellitus complication status: with unspecified complications Qualified Code(s): E10.8 - Type 1 diabetes mellitus with unspecified complications Is this a current diagnosis for this admission?: Yes (6) Hyponatremia Is this a current diagnosis for this admission?: Yes - Time Time Spent with patient: We'll continue present management as per Dr. Jewell and Dr Annamarie Taylor drip was initiated Ramon catheter inserted Treat hyperkalemia with small doses of Kayexalate To follow-up BMP every 4 hours Time Spent with patient: 25-34 minutes
[2016-12-15] MEDS ORDERED: FUROSEMIDE INJ/PF 20 MG/2 ML SDV IV ONE (14:30)
[2016-12-15] MEDS ORDERED: SODIUM POLYSTYRENE SULFONATE 15 GM/60 ML PO ONE (14:30)
[2016-12-15] MEDS ORDERED: METOLAZONE 2.5 MG TABLET PO ONE (15:00)
--- NOTE | 2016-12-15 15:01 | PDOC CONSULTATION ---
Consultation Consult Date: 12/15/16 Attending physician:: CASANDRA MATA Consult reason:: I was asked by Dr. Mata and Dr. Chinchilla to see this patient because of acute worsening of kidney function with fluid overload and hyperkalemia. History of Present Illness Admission Date/PCP: 12/15/16 06:51 YO SALVATORE, History of Present Illness: Patient is an 81-year-old lady with complicated history including chronic kidney disease stage IV secondary to cardiorenal syndrome, coronary artery disease, hypertension, diabetes mellitus, history of renal artery stenosis status post stent placement who came in yesterday because of acute worsening of shortness of breath. Patient was just discharged on December 10 when she also had a similar episode of pulmonary edema and acute kidney injury. While she was here during the last hospitalization she was stable on the same dose of torsemide to 40 mg twice a day. When she went home the patient and her daughter said that she seems to be doing good for a couple of days until yesterday. Patient reports that she started short of breath in the middle of the day confirmed by the daughter. Patient tells me that she thinks that she is making adequate amount of urine output and could not tell me if she feels like she is not emptying her blotter completely. She denies any increase intake of salt. She tells me that she is taking her medications as prescribed. She describes some upper abdominal discomfort. Apart from that she said she just doesn't feel well. Currently she is on BiPAP which helps her breathing. Her renal ultrasound did not show any urinary retention or obstruction. Dr. Chinchilla, library sales consultant, ordered to be her to be started on Lasix drip and metolazone. Her kidney function during this admission is worse than discharge. On discharge last week she had a BUN of 61 creatinine of 1.65. Last night she presented with a BUN of 78 and creatinine of 2.33 and estimated GFR of 20 with potassium of 6.4. After Ramon catheter was inserted today she only had a urine output of 100 mL. Past Medical History Cardiac Medical History: Reports: Atrial Fibrillation, Coronary Artery Disease, Heart Murmur, Hyperlipidemia, Hypertension-primary, Hypertension- shlomo-vascular , Peripheral Vascular Disease, Valvular Heart disease - Aortic stenosis Pulmonary Medical History: Reports: Asthma, Bronchitis, Chronic Obstructive Pulmonary Disease (COPD), Pneumonia Neurological Medical History: Reports: Migraine Endocrine Medical History: Reports: Diabetes Mellitus Type 2, Other - Toxic multinodular goiter Renal/ Medical History: Reports: Chronic Kidney Disease Stage IV, Hypercalcemia, Renal artery stenosis, Secondary Hyperparathyroidism Malignancy Medical History: Reports: Breast Cancer, Skin Cancer - Basal cell GI Medical History: Reports: Diverticulitis, Gastroesophageal Reflux Disease, Other - Chronic constipation Musculoskeltal Medical History: Reports: Arthritis, Gout, Other - Profound debility Psychiatric Medical History: Reports: Depression Hematology Medical History: Reports Anemia of Chronic Kidney Disease Past Surgical History Past Surgical History: Reports: Appendectomy, Cholecystectomy, Herniorrhaphy, Hysterectomy, Pacemaker, Renal Stent - Renal artery stent, Other - Previous EGDs and colonoscopies, breast lumpectomy Social History Information Source: Patient, Relative Lives with: Family Smoking Status: Unknown if Ever Smoked Frequency of Alcohol Use: None Hx Recreational Drug Use: No Drugs: None Hx Prescription Drug Abuse: No - Advance Directive Resuscitation Status: Full Code Family History Family History: DM - Parents, sister and brother, Hypertension - Parents, sister , brother, Malignancy - Brother with leukemia, another brother with lung cancer , sister has breast cancer Parental Family History Reviewed: Yes Children Family History Reviewed: Unknown Sibling(s) Family History Reviewed.: Yes Medication/Allergy Home Medications: Allopurinol [Zyloprim 100 mg Tablet] 100 mg PO DAILY 11/25/16 Anastrozole [Arimidex 1 mg Tablet] 1 mg PO DAILY 11/25/16 Ascorbic Acid [Vitamin C 500 mg Tablet] 500 mg PO DAILY 11/25/16 Aspirin [Adult Low Dose Aspirin EC] 81 mg PO DAILY 11/25/16 Diltiazem HCl [Cardizem Cd 240 mg Capsule.cr] 240 mg PO Q12 11/25/16 Famotidine [Pepcid 20 mg Tablet] 20 mg PO Q12 11/25/16 Fenofibrate Nanocrystallized [Triglide] 160 mg PO DAILY 11/25/16 Fluticasone Propionate [Flonase Nasal [place] 50 Mcg/[place] 16 gm] 1 spray NASL Q12 11/25/16 Hydrocodone/Acetaminophen [[place] 10-325 mg Tablet] 1 tab PO QIDP PRN 11/25/16 Magnesium Oxide [Mag-Ox 400 mg Tablet] 400 mg PO TID 11/25/16 Nitroglycerin [Nitrostat 0.4 mg (1/150 Gr) Tabs 25/Bottle] 0.4 mg SL Q5MP PRN [place]-3 Acid Ethyl Esters [Lovaza 1 gm Capsule] 2 gm PO BID 11/25/16 Ondansetron HCl [Zofran 8 mg Tablet] 8 mg PO Q8HP PRN 11/25/16 Paroxetine HCl [Paxil 20 mg Tablet] 20 mg PO QAM 11/25/16 Potassium Chloride [K-Tab ER] 20 meq PO BID 11/25/16 Rosuvastatin Calcium [Crestor 10 mg Tablet] 10 mg PO DAILY 11/25/16 Cetirizine HCl [Zyrtec 10 mg Tablet] 10 mg PO DAILY PRN #0 12/09/16 Hc Acetate/Pramoxine HCl [Epifoam Hc 1% Aerosol Foam] 1 applic TP TIDP PRN 30 Days 12/09/16 Insulin Glargine,Hum.rec.anlog [Lantus Insulin 100 Unit/mL] 30 unit SUBCUT DAILY 30 Days 12/09/16 Isosorbide Mononitrate [Imdur 30 mg Tablet.er] 120 mg PO QHS #30 tab.er.24h Simethicone [Mylicon 80 mg Chewable Tablet] 80 mg PO Q6HP PRN tab.chew Torsemide [Demadex 20 mg Tablet] 40 mg PO BID #60 tablet 12/09/16 Carvedilol [Coreg 25 mg Tablet] 25 mg PO Q12 12/15/16 Gabapentin [Neurontin 300 mg Capsule] 300 mg PO QHS 12/15/16 Allergies/Adverse Reactions: codeine [Codeine] Allergy (Severe, Verified 09/29/16 09:18) Hospitalized Penicillins Allergy (Severe, Verified 09/29/16 09:18) Redness, heat, swelling at site promethazine HCl [From Phenergan] Allergy (Unknown, Verified 09/29/16 09:18) PROBLEMS WITH LEGS Sulfa (Sulfonamide Antibiotics) Allergy (Unknown, Verified 09/29/16 09:18) Unknown reaction hydralazine HCl [From Apresoline] Adverse Reaction (Severe, Verified 09/29/16 09 :18) Cardiac arrest atorvastatin calcium [From Lipitor] Adverse Reaction (Verified 09/29/16 09:18) IV Contrast Allergy (Severe, Uncoded 09/29/16 09:18) ESRD Review of Systems All systems: reviewed and no additional remarkable complaints except as stated Review of Systems: Constitutional: ABSENT: chills, fever(s), headache(s), weight gain, weight loss ; admits fatigue and not feeling well Eyes: ABSENT: visual disturbances Ears: ABSENT: hearing changes Cardiovascular: ABSENT: chest pain, orthropnea, palpitations; admits dyspnea even at rest any edema Respiratory: ABSENT: cough, dyspnea, hemoptysis Gastrointestinal: ABSENT: constipation, diarrhea, hematemesis, hematochezia, nausea, vomiting; admits upper abdominal pain Genitourinary: ABSENT: dysuria, hematuria Musculoskeletal: ABSENT: joint swelling Integumentary: ABSENT: rash, wounds Neurological: ABSENT: abnormal gait, abnormal speech, confusion, dizziness, focal weakness, numbness, syncope Psychiatric: ABSENT: anxiety, depression Endocrine: ABSENT: cold intolerance, heat intolerance, polydipsia, polyuria Hematologic/Lymphatic: ABSENT: easy bleeding, easy bruising, lymphadenopathy Physical Exam Vital Signs: Temp Pulse Resp BP Pulse Ox 98.1 F 59 L 20 129/53 H 96 12/15/16 11:23 12/15/16 11:54 12/15/16 11:23 12/15/16 11:23 12/15/16 11:54 Intake & Output 12/14/16 12/15/16 12/16/16 06:59 06:59 06:59 Intake Total 237 Balance 237 Exam: General appearance: Patient currently on BiPAP Head exam: PRESENT: atraumatic, normocephalic Eye exam: PRESENT: Conjunctiva pale, EOMI, PERRLA. ABSENT: conjunctival injection, scleral icterus Mouth exam: PRESENT: moist, neck supple, tongue midline Neck exam: PRESENT: full ROM. ABSENT: carotid bruit, JVD, lymphadenopathy, thyromegaly Respiratory exam: PRESENT: Diminished to auscultation bilaterally. Positive crackles from mid to lower lung briggs bilaterally ABSENT: rhonchi, stridor, wheezes Cardiovascular exam: PRESENT: RRR, +S1, +S2. Grade 3/6 systolic murmur Pulses: PRESENT: normal radial pulses, normal dorsalis pedis pulses GI/Abdominal exam: PRESENT: normal bowel sounds, soft. Epigastric mild tenderness ABSENT: guarding, mass Rectal exam: deferred Extremities exam: PRESENT: full ROM. Admits to grade 1 bilateral lower extremity peeping edema ABSENT: calf tenderness Musculoskeletal: PRESENT: full ROM. ABSENT: deformity Neurological exam: PRESENT: alert, Awake, Oriented to person, Oriented to place , Oriented to time, reflexes normal, CN II-XII grossly intact. ABSENT: motor sensory deficit Psychiatric exam: PRESENT: appropriate affect, normal mood. ABSENT: homicidal ideation, suicidal ideation Skin exam: PRESENT: intact, dry, warm. ABSENT: rash Results Laboratory Results: 12/15/16 13:43 12/15/16 12/15/16 07:27 13:43 Sodium 130.2 L 130.9 L Potassium 5.8 H 5.6 H Chloride 90 L 90 L Carbon Dioxide 29 27 Anion Gap 11 14 BUN 82 H 80 H Creatinine 2.37 H 2.13 H Est GFR ( Amer) 24 L 27 L Est GFR (Non-Af Amer) 20 L 22 L Glucose 196 H 192 H Calcium 10.7 H 10.5 H Magnesium 2.0 Impressions: Renal Ultrasound 12/15/16 00:00 IMPRESSION: 1. Left renal atrophy relative to the right kidney. No obstructive changes. 2. Bladder looks relatively unremarkable, fairly nondistended. Abdomen X-Ray 12/15/16 02:51 IMPRESSION: NO RADIOGRAPHIC EVIDENCE FOR ACUTE ABDOMINAL DISEASE. Assessment & Plan - Diagnosis (1) Acute kidney injury superimposed on chronic kidney disease Is this a current diagnosis for this admission?: YesPlan: Patient is in chronic prerenal state as evident by urine sodium less than 5. This is consistent again with acute exacerbation for cardiorenal syndrome. Patient seems to have had an acute pulmonary edema. With the history of previous renal artery stenosis I think we have to check her renal arteries again when she is a little bit stable. Currently she is not making much urine output yet. Agree with inserting Ramon catheter and initiation of Lasix drip and metolazone. Case discussed with Dr. Chinchilla. At this point the patient does not require an urgent renal replacement therapy yet. However if she fails to respond with maximizing the diuretics with worsening kidney function then she may very well need renal replacement therapy. I discussed this with the patient appeared in the presence of her daughter at bedside. They agreed to proceed with renal replacement therapy if it becomes necessary. We'll monitor kidney function, electrolytes and urine output. Closely from this point. Avoid any other further nephrotoxic agents. (2) Cardiorenal syndrome with renal failure Is this a current diagnosis for this admission?: Yes (3) Chronic kidney disease, stage IV (severe) Is this a current diagnosis for this admission?: Yes (4) Hyperkalemia Is this a current diagnosis for this admission?: YesPlan: Patient was given Kayexalate. Hopefully if she responds to Lasix drip this will be taken cared of that way as well. If she does not respond to the diuretics, again this will be an indication for renal replacement therapy. (5) Acute respiratory failure with hypoxia Is this a current diagnosis for this admission?: Yes (6) Acute on chronic congestive heart failure Qualifiers: Congestive heart failure type: combined Qualified Code(s): I50.43 - Acute on chronic combined systolic (congestive) and diastolic (congestive) heart failure Is this a current diagnosis for this admission?: Yes (7) Diabetes mellitus type 2 Is this a current diagnosis for this admission?: Yes (8) Anemia in chronic kidney disease Is this a current diagnosis for this admission?: Yes (9) Hypercalcemia Is this a current diagnosis for this admission?: Yes (10) Hypertension Qualifiers: Hypertension type: essential hypertension Qualified Code(s): I10 - Essential (primary) hypertension Is this a current diagnosis for this admission?: Yes (11) Hyponatremia Is this a current diagnosis for this admission?: YesPlan: Acute on chronic secondary to hypervolemic state. - Notes Notes: Thank you very much for allowing me to participate in the care of this patient. Discussed the case with Dr. Chinchilla. Discussed assessment and plan with the patient and daughter. We'll follow the patient closely. - Time Time Spent: Greater than 70 Minutes
[2016-12-15] MEDS: NORMAL SALINE 250 ML with FUROSEMIDE 250 MG IV PRN ×2 (15:23)
[2016-12-15 19:29] LABS: ANION GAP 13 (5-19); BLOOD UREA NITROGEN 78 mg/dL (7-20); CALCIUM 10.4 mg/dL (8.4-10.2); CARBON DIOXIDE 29 mmol/L (22-30); CHLORIDE 91 mmol/L (98-107); CREATININE RESULT 2.24 mg/dL (0.52-1.25); GLUCOSE 193 mg/dL (75-110); POTASSIUM 4.9 mmol/L (3.6-5.0); SODIUM 132.5 mmol/L (137-145)
[2016-12-15] MEDS: GABAPENTIN 100 MG CAPSULE PO SCH ×2 (21:51→22:00)
[2016-12-15] MEDS ORDERED: SODIUM POLYSTYRENE SULFONATE 15 GM/60 ML PO SCH (22:00)
[2016-12-16] MEDS ORDERED: HYDROCODONE/ACETAMINOPHEN 5-325 MG TABLET PO ONE ×2 (00:15→00:30)
[2016-12-16 04:56] LABS: ABSOLUTE BASOPHILS # (AUTO) 0.1 10^3/uL (0.0-0.2); ABSOLUTE EOSINOPHILS # (AUTO) 0.1 10^3/uL (0.0-0.6); ABSOLUTE LYMPHOCYTES (AUTO) 0.7 10^3/uL (0.5-4.7); ABSOLUTE MONOCYTES (AUTO) 0.4 10^3/uL (0.1-1.4); ABSOLUTE NEUT (AUTO) 3.6 10^3/uL (1.7-8.2); BASOPHILS % (AUTO) 1.3 % (0-2); HEMATOCRIT 31.9 % (36.0-47.0); HEMOGLOBIN 10.7 g/dL (12.0-15.5); HGB HCT DIFFERENCE 0.2; LYMPHOCYTES % (AUTO) 14.6 % (13-45); MEAN CORPUSCULAR HEMOGLOBIN 30.3 pg (27.0-33.4); MEAN CORPUSCULAR HGB CONC 33.6 g/dL (32.0-36.0); MEAN CORPUSCULAR VOLUME 90 fl (80-97); MONOCYTES % (AUTO) 8.3 % (3-13); RED BLOOD COUNT 3.54 10^6/uL (3.72-5.28); RED CELL DISTRIBUTION WIDTH 16.2 % (11.5-14.0); SEGMENTED NEUTROPHILS % (AUTO) 74.8 % (42-78); WHITE BLOOD COUNT 4.8 10^3/uL (4.0-10.5)
[2016-12-16 05:18] LABS: ANION GAP 16 (5-19); BLOOD UREA NITROGEN 72 mg/dL (7-20); CALCIUM 10.8 mg/dL (8.4-10.2); CARBON DIOXIDE 31 mmol/L (22-30); CHLORIDE 91 mmol/L (98-107); GLUCOSE 149 mg/dL (75-110); SODIUM 137.6 mmol/L (137-145)
[2016-12-16 05:24] LABS: POTASSIUM 3.6 mmol/L (3.6-5.0)
[2016-12-16] MEDS: HEPARIN SOD (PORCINE) 5,000 UNIT/ML 1 ML SYRINGE SUBCUT SCH ×3 (06:35→21:19)
[2016-12-16] MEDS: ASPIRIN 81 MG TABLET, ENT COATED PO SCH (09:29)
[2016-12-16] MEDS: MAGNESIUM OXIDE 400 MG TABLET PO SCH ×3 (09:30→17:51)
[2016-12-16] MEDS: SIMETHICONE 80 MG TAB.CHEW PO PRN (09:32)
[2016-12-16] MEDS ORDERED: METOLAZONE 2.5 MG TABLET PO SCH (10:00)
[2016-12-16] MEDS: ONDANSETRON HCL INJ/PF 4 MG/2 ML SDV IV PRN (10:01)
[2016-12-16] MEDS ORDERED: CETIRIZINE 10 MG TABLET PO PRN (10:09)
[2016-12-16] MEDS ORDERED: HC ACETATE/PRAMOXINE HCL 10 GM TP PRN (10:09)
--- NOTE | 2016-12-16 11:06 | PDOC PROGRESS REPORT ---
Subjective Progress Note for:: 12/16/16 Subjective:: Patient is still complaining of shortness of breath She appears somewhat tachypneic but is oxygenating adequately on nasal cannula is complaining of pain and did not get norco that she usually takes every 6 hours at home She has no chest pain no fever no chills She still on the Lasix drip And she has a negative balance Physical Exam Vital Signs: Temp Pulse Resp BP Pulse Ox 98.5 F 85 19 166/60 H 95 12/16/16 07:24 12/16/16 07:24 12/16/16 07:24 12/16/16 07:24 12/16/16 08:57 Intake & Output 12/15/16 12/16/16 12/17/16 00:59 00:59 00:59 Intake Total 849 66 Output Total 1600 2700 Balance -751 -2634 Weight 75.1 kg General appearance: PRESENT: mild distress, other - She looks chronically ill and pale Head exam: PRESENT: atraumatic, normocephalic Eye exam: PRESENT: conjunctiva pink, EOMI, PERRLA. ABSENT: scleral icterus Respiratory exam: PRESENT: decreased breath sounds - Bilaterally, tachypnea. ABSENT: accessory muscle use, chest wall tenderness Cardiovascular exam: PRESENT: RRR, other - On the monitor she is not paced rhythm Pulses: PRESENT: normal dorsalis pedis pul GI/Abdominal exam: PRESENT: normal bowel sounds, soft. ABSENT: distended, guarding, mass, organolmegaly, rebound, tenderness Extremities exam: PRESENT: full ROM. ABSENT: calf tenderness, clubbing, pedal edema Skin exam: PRESENT: dry, intact, warm. ABSENT: cyanosis, rash Results Laboratory Results: 12/16/16 03:44 12/16/16 03:44 12/15/16 12/15/16 12/16/16 13:43 18:54 03:44 WBC 4.8 RBC 3.54 L Hgb 10.7 L Hct 31.9 L MCV 90 MCH 30.3 MCHC 33.6 RDW 16.2 H Plt Count 222 Seg Neutrophils % 74.8 Lymphocytes % 14.6 Monocytes % 8.3 Eosinophils % 1.0 Basophils % 1.3 Absolute Neutrophils 3.6 Absolute Lymphocytes 0.7 Absolute Monocytes 0.4 Absolute Eosinophils 0.1 Absolute Basophils 0.1 Sodium 130.9 L 132.5 L Potassium 5.6 H 4.9 Chloride 90 L 91 L Carbon Dioxide 27 29 Anion Gap 14 13 BUN 80 H 78 H Creatinine 2.13 H 2.24 H Est GFR ( Amer) 27 L 25 L Est GFR (Non-Af Amer) 22 L 21 L Glucose 192 H 193 H Calcium 10.5 H 10.4 H 12/16/16 03:44 WBC RBC Hgb Hct MCV MCH MCHC RDW Plt Count Seg Neutrophils % Lymphocytes % Monocytes % Eosinophils % Basophils % Absolute Neutrophils Absolute Lymphocytes Absolute Monocytes Absolute Eosinophils Absolute Basophils Sodium 137.6 Potassium 3.6 D Chloride 91 L Carbon Dioxide 31 H Anion Gap 16 BUN 72 H Creatinine 1.90 H Est GFR ( Amer) 31 L Est GFR (Non-Af Amer) 25 L Glucose 149 H Calcium 10.8 H Impressions: Chest X-Ray 12/14/16 22:44 IMPRESSION: Mild increase bilateral basilar interstitial markings and pleural effusions. Renal Ultrasound 12/15/16 00:00 IMPRESSION: 1. Left renal atrophy relative to the right kidney. No obstructive changes. 2. Bladder looks relatively unremarkable, fairly nondistended. Abdomen X-Ray 12/15/16 02:51 IMPRESSION: NO RADIOGRAPHIC EVIDENCE FOR ACUTE ABDOMINAL DISEASE. Assessment & Plan - Diagnosis (1) Acute kidney injury superimposed on chronic kidney disease Is this a current diagnosis for this admission?: YesPlan: Renal function seems to be improving 12/15/16 12/16/16 18:54 03:44 BUN 78 H 72 H Creatinine 2.24 H 1.90 H Renal ultrasound was unremarkable; continue the same management (2) CHF (congestive heart failure) Qualifiers: Congestive heart failure type: combined Congestive heart failure chronicity: chronic Qualified Code(s): I50.42 - Chronic combined systolic (congestive) and diastolic (congestive) heart failure Is this a current diagnosis for this admission?: YesPlan: Secondary to fluid overload Last echocardiogram showed an EF of 65% Mild mild AR pulmonary hypertension continue Lasix drip (3) Hyperkalemia Is this a current diagnosis for this admission?: YesPlan: Has resolved Follow-up BMP discontinue Kayexalate (4) COPD (chronic obstructive pulmonary disease) Qualifiers: Emphysema type: unspecified Is this a current diagnosis for this admission?: Yes (5) Diabetes mellitus type I Qualifiers: Diabetes mellitus complication status: with unspecified complications Qualified Code(s): E10.8 - Type 1 diabetes mellitus with unspecified complications Is this a current diagnosis for this admission?: YesPlan: continue present management (6) Hyponatremia Is this a current diagnosis for this admission?: YesPlan: Likely to be secondary to hemodilution Is improving 12/15/16 12/16/16 18:54 03:44 Sodium 132.5 L 137.6 - Time Time Spent with patient: 25-34 minutes
[2016-12-16] MEDS: HYDROCODONE/ACETAMINOPHEN 10-325 MG TABLET PO PRN ×2 (11:07→17:52)
--- NOTE | 2016-12-16 13:01 | PDOC PROGRESS REPORT ---
Subjective Progress Note for:: 12/16/16 Subjective:: Patient was admitted with respiratory distress and is having CHF exacerbation. Patient seems to be doing better with gradual improvement. Pt is denying any chest arm or neck discomfort. Patient denying any PND, orthopnea. Patient denied any sustained palpitations, dizziness, syncope, near syncope. Patient denying any fever chills. Patient denying any other significant discomfort. Patient is maintaining AV paced rhythm. Review of systems: Rest review of systems negative. Medications: Medications have been reviewed. Physical Exam Vital Signs: Temp Pulse Resp BP Pulse Ox 98.5 F 85 19 166/60 H 95 12/16/16 07:24 12/16/16 07:24 12/16/16 07:24 12/16/16 07:24 12/16/16 08:57 Intake & Output 12/15/16 12/16/16 12/17/16 06:59 06:59 06:59 Intake Total 915 100 Output Total 4300 1800 Balance -3385 -1700 Weight 75.1 kg Exam: GENERAL: well-nourished and in no acute distress. Alert and oriented x3 HEAD: Atraumatic, normocephalic. EYES: Pupils equal round and reactive to light, extraocular movements intact, sclera anicteric, conjunctiva are normal. ENT: TMs normal, nares patent, oropharynx clear without exudates. Moist mucous membranes. No oral ulcerations or bleeding gums noted NECK: supple without lymphadenopathy. Trachea is central. No cervical or axillary lymphadenopathy noted. Carotids are 2+, JVD 8-10 CM LUNGS: Respiration seems nonlabored, no significant accessory muscle action noted. Breath sounds equal but bibasilar fine crackles are noted. No wheezes rales or rhonchi noted. No significant dullness noted on percussion. CHEST: Palpation of the chest wall shows no significant chest wall tenderness. No other significant abnormalities noted. HEART: [place], No PSH, 1/6 [place] aortic area, 1/6 [place] systolic murmur mitral area, no rubs, no gallops. ABDOMEN: Soft, no significant tenderness appreciated, normoactive bowel sounds. No guarding, no rebound. No rigidity noted . No masses appreciated. EXTREMITIES: Pedal pulses are 1-2+, no calf tenderness noted. No clubbing or cyanosis.trace to 1+ pedal edema noted NEUROLOGICAL: Focused neurological exam showed no significant neurologic deficit. Normal speech, no focal weakness appreciated. PSYCH: Normal mood, normal affect. Judgment and insight within normal limits. SKIN: No significant ecchymosis, rash, ulcerations or signs of pruritus noted. MUSCULOSKELETAL EXAM: No significant joint swelling noted. Results Laboratory Results: 12/16/16 03:44 12/16/16 03:44 12/15/16 12/15/16 12/16/16 13:43 18:54 03:44 WBC 4.8 RBC 3.54 L Hgb 10.7 L Hct 31.9 L MCV 90 MCH 30.3 MCHC 33.6 RDW 16.2 H Plt Count 222 Seg Neutrophils % 74.8 Lymphocytes % 14.6 Monocytes % 8.3 Eosinophils % 1.0 Basophils % 1.3 Absolute Neutrophils 3.6 Absolute Lymphocytes 0.7 Absolute Monocytes 0.4 Absolute Eosinophils 0.1 Absolute Basophils 0.1 Sodium 130.9 L 132.5 L Potassium 5.6 H 4.9 Chloride 90 L 91 L Carbon Dioxide 27 29 Anion Gap 14 13 BUN 80 H 78 H Creatinine 2.13 H 2.24 H Est GFR ( Amer) 27 L 25 L Est GFR (Non-Af Amer) 22 L 21 L Glucose 192 H 193 H Calcium 10.5 H 10.4 H 12/16/16 03:44 WBC RBC Hgb Hct MCV MCH MCHC RDW Plt Count Seg Neutrophils % Lymphocytes % Monocytes % Eosinophils % Basophils % Absolute Neutrophils Absolute Lymphocytes Absolute Monocytes Absolute Eosinophils Absolute Basophils Sodium 137.6 Potassium 3.6 D Chloride 91 L Carbon Dioxide 31 H Anion Gap 16 BUN 72 H Creatinine 1.90 H Est GFR ( Amer) 31 L Est GFR (Non-Af Amer) 25 L Glucose 149 H Calcium 10.8 H EKG Comments: Shows A-V paced rhythm with heart rate of 60 bpm. Impressions: Chest X-Ray 12/14/16 22:44 IMPRESSION: Mild increase bilateral basilar interstitial markings and pleural effusions. Renal Ultrasound 12/15/16 00:00 IMPRESSION: 1. Left renal atrophy relative to the right kidney. No obstructive changes. 2. Bladder looks relatively unremarkable, fairly nondistended. Abdomen X-Ray 12/15/16 02:51 IMPRESSION: NO RADIOGRAPHIC EVIDENCE FOR ACUTE ABDOMINAL DISEASE. Status: Image reviewed by me - Shows right basal infiltrate and small bilateral pleural effusion. Assessment & Plan - Diagnosis (1) Acute on chronic congestive heart failure Qualifiers: Congestive heart failure type: combined Qualified Code(s): I50.43 - Acute on chronic combined systolic (congestive) and diastolic (congestive) heart failure Is this a current diagnosis for this admission?: Yes (2) COPD (chronic obstructive pulmonary disease) Qualifiers: Emphysema type: unspecified Is this a current diagnosis for this admission?: Yes (3) Cardiorenal syndrome with renal failure Is this a current diagnosis for this admission?: Yes (4) Chronic kidney disease, stage IV (severe) Is this a current diagnosis for this admission?: Yes (5) Mitral regurgitation Qualifiers: Cardiac valve disease etiology: nonrheumatic Qualified Code(s): I34.0 - Nonrheumatic mitral (valve) insufficiency - Notes Notes: Acute on chronic congestive heart failure: Patient still has some evidence of fluid retention. Continue with IV Lasix. Consider switching to by mouth Demadex when more stable. COPD: Currently stable. Continue with current management plans. Chronic kidney disease: Currently stable. Will monitor renal functions. Cardiorenal syndrome with renal failure: Patient may have decreased cardiac output as cause of fall reduced renal renal function. Will recommend nitrate and other vasodilators. Hydralazine lists in the allergies Mitral regurgitation: Previous echocardiogram reviewed. It is possible that patient may need a repeat echocardiogram especially if she does not improve as expected. Patient's overall prognosis is guarded. Patient's medications reviewed. Patient started on Imdur 30 mg by mouth daily. Consider adding Norvasc in place of reducing Cardizem. - Time Time with patient: Greater than 35 minutes - CODE STATUS was discussed, patient remains DO NOT RESUSCITATE. Surrogate decision-maker unchanged. Patient's granddaughter in the room Multiple medical problems were addressed.More than 50 % of the time spent coordinating care, discussing management plans with involved caregivers. Management plans discussed with involved personnels. Medical decision making was of moderate to high complexity, patient's has multiple severe comorbidities. Medications reviewed and adjusted accordingly: Yes
[2016-12-16] MEDS: INSULIN LISPRO 100 UNIT/ML 3 ML VIAL SUBCUT PRN ×2 (13:10→22:57)
[2016-12-16] MEDS ORDERED: ISOSORBIDE MONONITRATE 30 MG TAB.ER.24H PO ONE (13:15)
--- NOTE | 2016-12-16 13:29 | CONSULTATION REPORT E ---
Consultation Report NAME: JACINTA LUNSFORD : 1935 AGE: 81Y DATE: 12/15/2016 303 A TO: KEN GIBSON M.D. FROM: ANKITA SPARKS M.D. Requesting Physician I was with the patient from 1:15 p.m. to 1:55 p.m., a total of 40 minutes was spent on this patient. Initially I saw the patient briefly and then came back at this time since the patient had to go down for an ultrasound of the kidneys and bladder. CHIEF COMPLAINT: Shortness of breath, leg edema, symptoms of both decompensated right and left heart failure, acute renal failure, and hyperkalemia. HISTORY OF PRESENT ILLNESS: The patient is well known to me, who is an 81-year-old female with a past history of multifactorial shortness of breath for diseases mentioned below in the past history. She states that recently her Lasix was reduced and she started in the last 2 days to become having shortness of breath with exertion, with leg edema, PND, orthopnea, and then rest shortness of breath, with occasional episodes of wheezing. There was no cough or sputum production. There were no fever, chills, or rigors. There is no palpitations or syncope or near syncope. There is no TIA or DVA symptoms of recent time. She denies any fevers, chills, or rigors. She does have a history of left lower quadrant pain and constipation. Actually, the patient and the patient's daughter are very upset because the patient has not improved since July. This is the third admission. I am not sure if the patient is compliant with her diet and medication, and I am not sure if she controls her blood sugar well since her blood sugars are also very high. I have mentioned about the patient and her daughter being very upset regarding the patient's lack of improvement and concern about recurrent admissions and controlled hyperglycemia, and recently Lasix was reduced. She also states that with BiPAP. The daughter believes that it worsens her mother's respiratory status, and also in the last admission, she was upset with the attending physician for not putting a Ramon catheter in her mother and sucking out the fluid from the body, which the patient and the patient's daughter are very irrational and hard to convince that that was not the cause. Initially the patient and her daughter said that they do not want to talk about advanced care planning at this time but subsequently, the patient is now a DNR. The daughter is the healthcare power of event planning manager. Note, when she was admitted this time in the emergency room, it seemed like she was in biventricular failure with leg edema, JVD, and also bilateral pleural effusions with symptoms of crackles, which is consistent with biventricular failure which acute on chronic. She was also found to have worsening renal function on a creatinine; GFR went down to 20. She was also hyperkalemic, and also hyponatremic. Her blood sugar also was uncontrolled. The patient was treated with Kayexalate and the potassium came down to 5.8. PAST MEDICAL HISTORY: Very extensive: 1. She was admitted in 08/2014 with complete heart block with symptoms of dizziness and near syncope, and had a temporary pacemaker wire placed by [place], and recovered, and was sent to [facility] where she had dual-chamber pacemaker placement. 2. She has a past history of SVT with no recurrence. 3. She has no history of coronary artery disease. 4. No history of AR. 5. In 07/2016, an ejection fraction was 65% but even with a normal ejection fraction, with the kidneys not functioning well, there is not only an element of acute on chronic diastolic failure, there is also volume overload systolic heart failure which is also acute on chronic. She has several episodes of volume overload. 6. In 07/2016, she came in with a GI bleed and had a colonoscopy which showed that she had diverticulosis and multiple polyps were removed. At that time she also had right-sided chest pressure and also central chest pressure, which was constant, and she said that it increased when she walked around. Her troponin I at that time was elevated. EKG was unhelpful due to a paced rhythm. She subsequently was stabilized and underwent a Cardiolite stress test which showed no evidence of ischemia or AR. 7. She has had episodes of intermittent dysphagia and also chest pressure constant. She has a history of GERD and hiatal hernia, and also in the past she has had a barium study which showed esophageal dysmotility disorder with tertiary contractions. In July she had an echocardiogram as mentioned earlier, with LV ejection fraction of 65% with moderate mitral regurgitation. 8. She has a history of hypertension. 9. She has a past history of CVA from which has fully recovered. 10. She has a history of GERD and hiatal hernia as mentioned earlier. 11. She has a history of chronic kidney disease stage IV, which has now worsened to a GFR of 20, which is acute on chronic renal failure. 12. She has a past history of renal artery stenosis, and in 07/2016 she had bilateral renal Dopplers which showed that there was no restenosis of the stent in the left renal artery. 13. She has a history of sleep apnea, but as mentioned earlier, she and her daughter are very resistant to BiPAP placement. 14. There is no history of asthma or COPD. 15. In the past she used to have moderate to severe mitral regurgitation but in 07/2016 it showed moderate mitral regurgitation. 16. She also has mild aortic stenosis. 17. She has a history of depression. 18. She has a history of left breast cancer, currently on medications for that. Her breast cancer has not had radiation or chemotherapy. 19. She, recently in the past few months, had a total body scan which showed there were traces of arthritis but no metastatic bony disease. 20. She has a past history of GI bleed secondary to colonic polyps which were removed. 21. She has had diverticulosis which was thought to be the cause of the diverticular bleed. 22. As mentioned earlier, she has a past history of gastric intestinal ulcers. 23. She has a history of diabetes mellitus x2 with renal complication/diabetic neuropathy, and also has requires insulin but I am not sure if she checks her Accu-Cheks and watches her diet. She says her blood sugars have been uncontrolled. PAST SURGICAL HISTORY: 1. She had the right lobe of her thyroid removed. 2. She has a history of abdominal surgery. 3. She has a past history of internal GI bleed, surgically corrected. 4. She has had a left renal artery stent placed. 5. She has had a permanent pacemaker placed. FAMIL HISTORY: Positive for diabetes mellitus, CAD, and hypertension in her parents and siblings. ALLERGIES: SHE IS ALLERGIC TO CODEINE, PENICILLIN, AND HYDRALAZINE. SHE STATES THAT THE HYDRALAZINE CAUSES HER TO HAVE CARDIAC ARREST. SHE IS ALSO ALLERGIC TO IV CONTRAST, ATORVASTATIN, AND SULFA. SOCIAL HISTORY: The patient does not smoke. There is no history of street drug or recreational drug use. CODE STATUS: She is at present a DNR. Her daughter is the surrogate healthcare decision maker. REVIEW OF SYSTEMS: CONSTITUTIONAL: There is no history of fever, chills, or rigors. She has generalized fatigue and weakness which is chronic. HEAD: She has no history of headaches or head injury, and recently has had some dizziness. EYES: No history of amblyopia, diplopia. No history of amaurosis fugax. EARS: The patient has slightly decreased hearing. There is no history of tinnitus. No vertigo. No recurrent ear infections. NOSE: No history of hay fever. No history of nosebleed. No history of nasal polyps. MOUTH: No history of altered taste sensation. No history of ulcers in the mouth. No bleeding from the gums. THROAT: No history of odynophagia, dysphagia. No history of recurrent sore throat. SKIN: There are no skin rashes or skin lesions. There is no pruritus. There is no yellowish discoloration of the skin. There is no history of skin cancer. NECK: No enlarged neck lymph nodes. She has had a right thyroid lobectomy done. There is no goiter. No painful swelling of the neck. LUNGS: She has no history of asthma or COPD, but her chest x-ray suggests COPD. She has never smoked. There is a history of sleep apnea, but the patient and her daughter are very resistant to wearing CPAP. She also has chronic chest wall pain, reproducible on pressing on the right side of the chest. The patient has a dry cough but no sputum production. There was intermittent wheezing at this time and there is orthopnea and shortness of breath, also along with PND. CARDIAC: History of hypertension present, history of continuous pressure in the epigastric region, which she says increases with exertion but the patient has GERD and a hiatal hernia. She also has esophageal dysmotility disorder. In the past, her chest pressure was resolved with a GI cocktail. She has a past history of SVT with no recurrence. She has a history of complete heart block with severe bradycardia and hypertension and near syncope and dizziness, for which she had a temporary pacemaker placed, as mentioned earlier, and subsequently has not had any recurrence of SVT, and the pacemaker seems to be working fine. She also has a history of transient atrial fibrillation with no recurrence. She has not had any episodes of syncope. Recent admission with shortness of breath with biventricular heart failure symptoms. GENITOURINARY: There are no symptoms of hematuria, pyuria, or dysuria. RENAL: She has a history of chronic kidney disease, which is now stage IV with hyperkalemia. In 09/2006, her GFR improved to 34; now it has come down to 20, so now it is back to stage IV from stage III; hence, it is acute on chronic renal disease. The last admission, her GFR was reduced to 12 but came up. 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 She claims there is no polydipsia or polyuria. She does not maintain sugar excess properly and her blood sugars are uncontrolled. She has no history of hirsutism. No history of excessive sweating. There is no history of hypothyroidism. NEUROLOGICAL: She has a past history of CVA, but no focal deficit, but has fully recovered from it. There is no recurrence of any TIA or CVA. She has no history of headaches or migraines. She has a history of sleep apnea, very reluctant to use BiPAP. There is no history of seizures or migraines. MUSCULOSKELETAL: She has a history of arthritis, but no history of collagen vascular disease. GASTROINTESTINAL: The patient has history of GERD, most likely also has esophageal dysmotility disorder. She also has a history of hiatal hernia. There is no history of jaundice. No history of fatty food intolerance. Past history of diverticulitis and diverticulosis, and colonic polyps, which caused rectal bleed. and the patient received blood transfusion She has had a history of hemorrhoids, history of hiatal hernia, and history of irritable bowel syndrome. Also as mentioned earlier, from time to time she has dysphagia but no odynophagia. In the remote past she has had epigastric pain, helped with metoclopramide. METABOLIC: She has a history of hyperlipidemia. She has a history of mild to moderate obesity. She also has a history of gout. HEMATOLOGICAL: The patient has a history of anemia of chronic disease, and also secondary to rectal bleed but no history of bleeding diathesis. No history of clotting disorders. VASCULAR: The patient has moderate stenosis of the right external carotid artery and proximal internal carotid artery. She has stenosis of the left external carotid artery of 50%, and severe stenosis in the left internal carotid artery with the range greater than 70%. There is no history of calf or buttock claudication. No history of DVT. She has a stent in her left renal artery, which by 07/2016, renal Dopplers showed that there was no restenosis. PSYCHIATRY: She has a history of depression. The patient also appears to be severely depressed. She also has a history of anxiety. There is no history of suicidal ideation or homicidal ideations. MEDICATIONS: This hospital admission she is on: 1. Acetaminophen 650 mg p.o. every 6 hours p.r.n. 2. Aspirin 81 mg p.o. daily. 3. Hypoglycemic precautions with glucose 40% gel, 15 grams p.o. and 30 grams p.o. p.r.n. hypoglycemia. 4. Lasix, she had 40 mg IV x1. 5. Hypoglycemic precautions with dextrose 50%, 25 grams IV and 12.5 grams IV p.r.n. 6. Neurontin 300 mg p.o. at bedtime. 7. Glucagon 1 mg IM p.r.n. 8. Heparin 5000 units subcutaneously every 8 hours. 9. Accu-Chek a.c., t.i.d., and at bedtime with sliding scale regular insulin coverage. 10. Ipratropium . 11. Nebulizer treatment every 6 hours p.r.n. 12. Lactulose 20 grams p.o. x1. 13. Magnesium oxide 400 mg p.o. t.i.d. 14. Topical nitrate 1 gram 2% x1. 15. Mylicon 80 mg p.o. at bedtime p.r.n. 16. Sodium bicarbonate 50 mg IV x1. 17. Kayexalate 15 grams x1 and subsequently had an order of 15 grams p.o. every 12 hours. 18. Regular insulin IV to treat her hyperglycemia. PHYSICAL EXAMINATION: GENERAL: On examination, she is mild to moderately obese, is depressed due to respiratory difficulty. VITAL SIGNS: She was afebrile earlier on with a temperature of 98.1 degrees Fahrenheit, pulse is 59 beats per minute, blood pressure 129/53. She is a on a BiPAP with a respiratory rate of 20, and O2 sat of 96% with an FiO2 of 30%. At the time around which I saw her, her blood pressure was like 146/60 with a pulse of 62 beats per minute. HEAD: Atraumatic, normocephalic. EYES: Pupils are equal, round, regular, and reactive to light and accommodation. Extraocular movements are normal. There is conjunctival pallor present. There is no sclerae icterus. EARS: Tympanic membranes are intact. External auditory canals are clear. NOSE: There is no deviated nasal septum. MOUTH: There are no ulcers in the mouth. There is no bleeding from the gums. THROAT: There is no redness of the oropharynx. There are no exudates in the throat. SKIN: There are no skin rashes. There is no petechia or ecchymosis. There are no skin lesions. NECK: Supple. There is some degree of axillary muscle of respiration used. There is mild JVD present. There are bilateral carotid bruits present. Carotids are equal. There is no lymphadenopathy. Trachea is central. LUNGS: Show absent breath sound bilaterally, and of CHF. HEART: S1 and S2 are heard. There is no S3 gallop. There is no S4 gallop. There is murmur of mild aortic stenosis with preserved A2. There is also murmur of mitral regurgitation heard in the apex on the left ventricle, radiating to the left axilla. There is no S3 gallop. S1 is of normal intensity. There is no diastolic murmur. ABDOMEN: Soft, at present nontender even though she complains of left lower quadrant pain. There is no hepatosplenomegaly. Bowel sounds are heard. EXTREMITIES: Femorals are diminished. Leg pulses are diminished. There is 1-2+ pedal edema bilaterally. There is no DVT or cellulitis. There is no calf tenderness. There is no cyanosis or clubbing. Leg pulses are diminished. CENTRAL NERVOUS SYSTEM: The patient is conscious, awake, drowsy but oriented x3 with no focal deficits. PSYCHIATRIC: The patient appears to be anxious and very much depressed but she is not agitated. IMAGING STUDIES: The patient's EKG done last night showed atrial ventricular paced dual-chamber pacemaker, activation pattern. The patient's chest x-ray shows bilateral pleural effusions, and also evidence of congestive heart failure. She had an ultrasound of the abdomen which shows that the right kidney is 12.3 cm in length with normal echogenicity. No hydronephrosis. The left kidney is slightly smaller at 9.3; no mass or obstruction evident however. Bladder unremarkable without mass evident. The patient's abdominal x-ray shows no abnormal gas collection. There is nonobstructive wall gas pattern. There is no dilated dukes of air fluid levels. OTHER FINDINGS: No other significant findings. DIAGNOSTIC TEST RESULTS: White count 5,800, hemoglobin 10.6, hematocrit 31.6, and a platelet count 239,000. Initial potassium was 6.4 with a sodium of 127 and a GFR of 20. Earlier this morning, sodium was 130.2 which is slightly better than what it was. Potassium was 5.8, chloride is 90, CO2 is 29, BUN is 82, creatinine 2.37. GFR is reduced to 20 mL. Glucose is 196. Calcium 10.7, magnesium 2.0. Urine is negative for any protein, and negative for any urine leukocyte esterase. IMPRESSION: 1. Acute on chronic renal failure. The patient used to be stage III; now she is stage IV. 2. Hyperkalemia, treated, and potassium is coming down. 3. Shortness of breath and edema secondary to acute renal failure as mentioned above, and also due to acute on chronic diastolic heart failure, and also volume overload (systolic, heart failure in spite of a normal LV ejection fraction. The left ventricle is not able to handle the volume overload. 4. Hyponatremia which is secondary to hemodilution due to fluid retention. 5. Hypertension. Seems to be fairly well controlled. 6. Diabetes mellitus type 2 with diuretic kidney complications which now is a stage IV insulin requiring. Blood sugar is not very well controlled. 7. Past history of bradycardia secondary to complete head block and had a permanent pacemaker placed with no recurrent of bradycardia. 8. History of GI and hiatal hernia. 9. Past history of SVT and transient atrial fibrillation with no recurrence. 10. Past history of CVA with no recurrence. 11. GERD and a hiatal hernia. 12. History of left renal artery stent patent by renal artery Doppler in July. 13. Past history of GI bleed secondary to diverticulitis, diverticulosis, and colonic polyps, treated endoscopically, and with supportive treatment of anemia with blood transfusion. 14. History of chronic noncardiac chest pressure. 15. History of depression. 16. Possible COPD by chest x-ray. 17. History of depression. 18. History of anxiety. 19. 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 No symptoms in the recent past. RECOMMENDATION: 1. Continue BiPAP. 2. Continue oxygen support. 3. Since the application coordinator did not want a Ramon placed prior to the renal ultrasound and bladder ultrasound, no blood has been done. A Ramon is being inserted. 4. Continue her current medications. 5. Continue insulin. 6. Would stop the IV normal saline running at 120 g/mL/h. 7. Will start the patient on a Lasix drip at 5 mg/h with a loading dose of 20 mg prior. 8. Would also add metolazone 2.5 mg daily. I have discussed with the application coordinator, and she thinks that unless we do not have good success with the diuretics, or if her renal function further deteriorates, only then the patient will be a candidate for dialysis. This has been discussed with the patient and the patient's family. They are agreeable if the application coordinator decided that it is time for dialysis, they would love to have it. Since I have told them in spite of the some LV dysfunction function, the patient does have a volume overload problem causing systolic heart failure, acute on chronic, and also the patient has chronic diastolic heart failure, and also this is a compounded by the patient's mitral regurgitation. All medications were reviewed. I have ordered the medications after discussions with the application coordinator. She will follow the patient if her kidney is closing. Also, I have discussed with the patient and the patient's family in detail. As to the patient's laboratory data, it was going on at present. Luckily the patient does not have any chest pain at this time. Note: Forty minutes spent on this patient, more than 50% of the time spent on direct patient care, and also review of the patient's medications, adjusting and adding medications, and also stopping the IV fluids running at 125 mL/h, and also discussions with patient and patient's daughter. I also discussed with the application coordinator and the hospitalist attending on the case. Dr. Soliman will follow the patient but as a courtesy since I have known the family for a long time, I will just visit her in the evenings after my office hours. This has been discussed with the patient and the patient's daughter, who are very agreeable to that. Further treatment depends on the patient's response to diuretics. DICTATING PHYSICIAN: KEN GIBSON M.D. [id number] Y#: [id number] ID: [id number] JOB#: [id number] ACCT: [id number] cc:KEN GIBSON M.D. >
--- NOTE | 2016-12-16 13:30 | PDOC PROGRESS REPORT ---
Subjective Progress Note for:: 12/16/16 Subjective:: Patient is still complaining of shortness of breath But her condition has improved She is diuresing and has a negative balance Physical Exam Vital Signs: Temp Pulse Resp BP Pulse Ox 98.5 F 85 19 166/60 H 95 12/16/16 07:24 12/16/16 07:24 12/16/16 07:24 12/16/16 07:24 12/16/16 08:57 Intake & Output 12/15/16 12/16/16 12/17/16 00:59 00:59 00:59 Intake Total 849 166 Output Total 1600 4500 Balance -036 -4914 Weight 75.1 kg Results Laboratory Results: 12/16/16 03:44 12/16/16 03:44 12/15/16 12/15/16 12/16/16 13:43 18:54 03:44 WBC 4.8 RBC 3.54 L Hgb 10.7 L Hct 31.9 L MCV 90 MCH 30.3 MCHC 33.6 RDW 16.2 H Plt Count 222 Seg Neutrophils % 74.8 Lymphocytes % 14.6 Monocytes % 8.3 Eosinophils % 1.0 Basophils % 1.3 Absolute Neutrophils 3.6 Absolute Lymphocytes 0.7 Absolute Monocytes 0.4 Absolute Eosinophils 0.1 Absolute Basophils 0.1 Sodium 130.9 L 132.5 L Potassium 5.6 H 4.9 Chloride 90 L 91 L Carbon Dioxide 27 29 Anion Gap 14 13 BUN 80 H 78 H Creatinine 2.13 H 2.24 H Est GFR ( Amer) 27 L 25 L Est GFR (Non-Af Amer) 22 L 21 L Glucose 192 H 193 H Calcium 10.5 H 10.4 H 12/16/16 03:44 WBC RBC Hgb Hct MCV MCH MCHC RDW Plt Count Seg Neutrophils % Lymphocytes % Monocytes % Eosinophils % Basophils % Absolute Neutrophils Absolute Lymphocytes Absolute Monocytes Absolute Eosinophils Absolute Basophils Sodium 137.6 Potassium 3.6 D Chloride 91 L Carbon Dioxide 31 H Anion Gap 16 BUN 72 H Creatinine 1.90 H Est GFR ( Amer) 31 L Est GFR (Non-Af Amer) 25 L Glucose 149 H Calcium 10.8 H Impressions: Chest X-Ray 12/14/16 22:44 IMPRESSION: Mild increase bilateral basilar interstitial markings and pleural effusions. Renal Ultrasound 12/15/16 00:00 IMPRESSION: 1. Left renal atrophy relative to the right kidney. No obstructive changes. 2. Bladder looks relatively unremarkable, fairly nondistended. Abdomen X-Ray 12/15/16 02:51 IMPRESSION: NO RADIOGRAPHIC EVIDENCE FOR ACUTE ABDOMINAL DISEASE. Assessment & Plan - Diagnosis (1) Acute kidney injury superimposed on chronic kidney disease Is this a current diagnosis for this admission?: Yes (2) CHF (congestive heart failure) Qualifiers: Congestive heart failure type: combined Congestive heart failure chronicity: chronic Qualified Code(s): I50.42 - Chronic combined systolic (congestive) and diastolic (congestive) heart failure Is this a current diagnosis for this admission?: Yes (3) Hyperkalemia Is this a current diagnosis for this admission?: Yes (4) COPD (chronic obstructive pulmonary disease) Qualifiers: Emphysema type: unspecified Is this a current diagnosis for this admission?: Yes (5) Diabetes mellitus type I Qualifiers: Diabetes mellitus complication status: with unspecified complications Qualified Code(s): E10.8 - Type 1 diabetes mellitus with unspecified complications Is this a current diagnosis for this admission?: Yes (6) Hyponatremia Is this a current diagnosis for this admission?: Yes
[2016-12-16 15:49] LABS: ANION GAP 16 (5-19); BLOOD UREA NITROGEN 62 mg/dL (7-20); CALCIUM 11.1 mg/dL (8.4-10.2); CARBON DIOXIDE 37 mmol/L (22-30); CHLORIDE 86 mmol/L (98-107); CREATININE RESULT 1.59 mg/dL (0.52-1.25); GLUCOSE 252 mg/dL (75-110)
[2016-12-16] MEDS ORDERED: POTASSIUM CHLORIDE 10 MEQ TABLET.SA PO ONE (16:46)
[2016-12-16] MEDS: NORMAL SALINE 250 ML with FUROSEMIDE 250 MG IV PRN ×2 (17:49)
[2016-12-16] MEDS: OMEGA-3 ACID ETHYL ESTERS 1 GM CAPSULE PO SCH (17:51)
[2016-12-16] MEDS: PHARMACY COMMUNICATION ORDER MC SCH (17:53)
--- NOTE | 2016-12-16 20:32 | PDOC PROGRESS REPORT ---
Subjective Progress Note for:: 12/16/16 Subjective:: Patient is doing better today. She is off the BiPAP now. She has diuresis very well with the Lasix drip. She confirms that she is feeling better. She is starting to eat a little bit. She still seems anxious about getting short of breath. Physical Exam Vital Signs: Temp Pulse Resp BP Pulse Ox 99.3 F 74 22 H 156/54 H 97 12/16/16 19:33 12/16/16 19:33 12/16/16 19:33 12/16/16 19:33 12/16/16 19:33 Intake & Output 12/15/16 12/16/16 12/17/16 06:59 06:59 06:59 Intake Total 915 310 Output Total 4300 3300 Balance -3385 -2990 Weight 75.1 kg Exam: General appearance: PRESENT: no acute distress, cooperative, well-developed, well-nourished Head exam: PRESENT: atraumatic, normocephalic Eye exam: PRESENT: conjunctiva pale, PERRLA. ABSENT: scleral icterus Neck exam: ABSENT: JVD Respiratory exam: PRESENT: Diminished breath sounds. ABSENT: crackles, rales, rhonchi, unlabored, wheezes Cardiovascular exam: PRESENT: Regular rate rhythm -+S1, +S2. Grade 2/6 systolic murmur ABSENT: diastolic murmur GI/Abdominal exam: PRESENT: normal bowel sounds, soft. ABSENT: guarding, mass, tenderness Extremities exam: Trace bilateral lower extremity pitting edema Neurological exam: PRESENT: alert, awake, oriented to person, place and time. Skin exam: PRESENT: dry, warm, Results Laboratory Results: 12/16/16 03:44 12/16/16 14:49 12/16/16 12/16/16 12/16/16 03:44 03:44 14:49 WBC 4.8 RBC 3.54 L Hgb 10.7 L Hct 31.9 L MCV 90 MCH 30.3 MCHC 33.6 RDW 16.2 H Plt Count 222 Seg Neutrophils % 74.8 Lymphocytes % 14.6 Monocytes % 8.3 Eosinophils % 1.0 Basophils % 1.3 Absolute Neutrophils 3.6 Absolute Lymphocytes 0.7 Absolute Monocytes 0.4 Absolute Eosinophils 0.1 Absolute Basophils 0.1 Sodium 137.6 139.0 Potassium 3.6 D 3.0 L* Chloride 91 L 86 L Carbon Dioxide 31 H 37 H Anion Gap 16 16 BUN 72 H 62 H Creatinine 1.90 H 1.59 H Est GFR ( Amer) 31 L 38 L Est GFR (Non-Af Amer) 25 L 31 L Glucose 149 H 252 H Calcium 10.8 H 11.1 H Impressions: Chest X-Ray 12/14/16 22:44 IMPRESSION: Mild increase bilateral basilar interstitial markings and pleural effusions. Renal Ultrasound 12/15/16 00:00 IMPRESSION: 1. Left renal atrophy relative to the right kidney. No obstructive changes. 2. Bladder looks relatively unremarkable, fairly nondistended. Abdomen X-Ray 12/15/16 02:51 IMPRESSION: NO RADIOGRAPHIC EVIDENCE FOR ACUTE ABDOMINAL DISEASE. Assessment & Plan - Diagnosis (1) Acute kidney injury superimposed on chronic kidney disease Is this a current diagnosis for this admission?: YesPlan: Patient is in chronic prerenal state as evident by urine sodium less than 5. This is consistent again with acute exacerbation for cardiorenal syndrome. Patient seems to have had an acute pulmonary edema. Her duplex of the renal arteries revealed no hemodynamically significant renal artery stenosis. Continue Lasix drip until tomorrow morning. We will restart torsemide at 60 mg twice a day as well as the metolazone with the current dose. We'll monitor kidney function, electrolytes and urine output. Closely from this point. Avoid any other further nephrotoxic agents. (2) Cardiorenal syndrome with renal failure Is this a current diagnosis for this admission?: Yes (3) Chronic kidney disease, stage IV (severe) Is this a current diagnosis for this admission?: Yes (4) Diuretic-induced hypokalemia Is this a current diagnosis for this admission?: YesPlan: Replace potassium as needed (5) Acute respiratory failure with hypoxia Is this a current diagnosis for this admission?: Yes (6) Acute on chronic congestive heart failure Qualifiers: Congestive heart failure type: combined Qualified Code(s): I50.43 - Acute on chronic combined systolic (congestive) and diastolic (congestive) heart failure Is this a current diagnosis for this admission?: Yes (7) Diabetes mellitus type 2 Is this a current diagnosis for this admission?: Yes (8) Anemia in chronic kidney disease Is this a current diagnosis for this admission?: Yes (9) Hypercalcemia Is this a current diagnosis for this admission?: YesPlan: Check PTH and phosphorus. (10) Hypertension Qualifiers: Hypertension type: essential hypertension Qualified Code(s): I10 - Essential (primary) hypertension Is this a current diagnosis for this admission?: Yes (11) Hyponatremia Is this a current diagnosis for this admission?: YesPlan: Resolved. - Time Time with patient: 15-25 minutes
[2016-12-16] MEDS ORDERED: POTASSIUM CHLORIDE 10 MEQ TABLET.SA PO SCH (21:00)
[2016-12-16] MEDS: FAMOTIDINE 20 MG TABLET PO SCH (21:16)
[2016-12-16] MEDS: CARVEDILOL 12.5 MG TABLET PO SCH (21:17)
[2016-12-16] MEDS: GABAPENTIN 300 MG CAPSULE PO SCH (21:18)
[2016-12-16] MEDS: DILTIAZEM HCL 240 MG CAPSULE.CR PO SCH (21:18)
[2016-12-16] MEDS: FLUTICASONE NASAL SPRAY 50 MCG/SPRY 120 SPRAY/16 GM NASL SCH (21:42)
[2016-12-16] MEDS ORDERED: ISOSORBIDE MONONITRATE 30 MG TAB.ER.24H PO SCH (22:00)
[2016-12-16] MEDS ORDERED: FAMOTIDINE 20 MG TABLET PO SCH (22:00)
[2016-12-16] MEDS ORDERED: ATORVASTATIN CALCIUM 20 MG TABLET PO SCH (22:00)
[2016-12-17] MEDS: HYDROCODONE/ACETAMINOPHEN 10-325 MG TABLET PO PRN ×4 (00:47→22:25)
[2016-12-17 05:16] LABS: ALBUMIN 3.6 g/dL (3.5-5.0); ANION GAP 13 (5-19); BLOOD UREA NITROGEN 62 mg/dL (7-20); CALCIUM 10.6 mg/dL (8.4-10.2); CARBON DIOXIDE 38 mmol/L (22-30); CHLORIDE 88 mmol/L (98-107); CREATININE RESULT 1.56 mg/dL (0.52-1.25); GLUCOSE 141 mg/dL (75-110); PHOSPHORUS 3.9 mg/dL (2.5-4.5); SODIUM 138.8 mmol/L (137-145)
[2016-12-17 05:33] LABS: POTASSIUM 4.2 mmol/L (3.6-5.0)
[2016-12-17] MEDS: HEPARIN SOD (PORCINE) 5,000 UNIT/ML 1 ML SYRINGE SUBCUT SCH ×3 (06:15→22:05)
[2016-12-17] MEDS: ONDANSETRON HCL INJ/PF 4 MG/2 ML SDV IV PRN (07:07)
[2016-12-17] MEDS: CARVEDILOL 12.5 MG TABLET PO SCH ×2 (09:55→22:05)
[2016-12-17] MEDS: ALLOPURINOL 100 MG TABLET PO SCH (09:55)
[2016-12-17] MEDS: ASCORBIC ACID 500 MG TABLET PO SCH (09:55)
[2016-12-17] MEDS: ASPIRIN 81 MG TABLET, ENT COATED PO SCH (09:56)
[2016-12-17] MEDS: MAGNESIUM OXIDE 400 MG TABLET PO SCH ×3 (09:56→17:28)
[2016-12-17] MEDS: OMEGA-3 ACID ETHYL ESTERS 1 GM CAPSULE PO SCH ×2 (09:56→17:28)
[2016-12-17] MEDS: FAMOTIDINE 20 MG TABLET PO SCH ×2 (09:56→22:04)
[2016-12-17] MEDS: PAROXETINE HCL 20 MG TABLET PO SCH (09:57)
[2016-12-17] MEDS: DILTIAZEM HCL 240 MG CAPSULE.CR PO SCH (09:57)
[2016-12-17] MEDS: ISOSORBIDE MONONITRATE 30 MG TAB.ER.24H PO SCH (09:58)
[2016-12-17] MEDS: FENOFIBRATE NANOCRYSTALLIZED 145 MG TABLET PO SCH (09:58)
[2016-12-17] MEDS: TORSEMIDE 20 MG TABLET PO SCH ×2 (09:59→17:28)
[2016-12-17] MEDS: METOLAZONE 2.5 MG TABLET PO SCH (10:00)
[2016-12-17] MEDS ORDERED: ISOSORBIDE MONONITRATE 30 MG TAB.ER.24H PO SCH (10:00)
[2016-12-17] MEDS ORDERED: (PENDING PHARMACY ID) (Fenofibrate Nanocrystallized [Triglide] 160 MG) PO SCH (10:00)
[2016-12-17] MEDS: FLUTICASONE NASAL SPRAY 50 MCG/SPRY 120 SPRAY/16 GM NASL SCH ×2 (10:01→22:13)
[2016-12-17] MEDS: ANASTROZOLE 1 MG TABLET PO SCH (10:03)
[2016-12-17] MEDS: INSULIN GLARGINE,HUM.REC.ANLOG 300 UNIT/3 ML INSULN.PEN SUBCUT SCH (10:04)
--- NOTE | 2016-12-17 13:08 | PDOC PROGRESS REPORT ---
Subjective Progress Note for:: 12/17/16 Subjective:: Patient was admitted with respiratory distress and is having CHF exacerbation. Pt is denying any chest arm or neck discomfort. Patient denying any PND, orthopnea. Patient denied any sustained palpitations, dizziness, syncope, near syncope. Patient denying any fever chills. Patient denying any other significant discomfort. Today patient was noted to be much improved and resting comfortably. Respiratory status has improved. Renal functions are showing some improvement. Patient is maintaining AV paced rhythm. Review of systems: Rest review of systems negative. Medications: Medications have been reviewed. Physical Exam Vital Signs: Temp Pulse Resp BP Pulse Ox 98.7 F 60 20 137/47 H 98 12/17/16 08:17 12/17/16 08:17 12/17/16 08:17 12/17/16 08:17 12/17/16 08:22 Intake & Output 12/16/16 12/17/16 12/18/16 06:59 06:59 06:59 Intake Total 915 845 Output Total 4300 4600 Balance -3385 -3755 Weight 75.1 kg 72 kg Exam: GENERAL: well-nourished and in no acute distress. Alert and oriented x3 HEAD: Atraumatic, normocephalic. EYES: Pupils equal round and reactive to light, extraocular movements intact, sclera anicteric, conjunctiva are normal. ENT: TMs normal, nares patent, oropharynx clear without exudates. Moist mucous membranes. No oral ulcerations or bleeding gums noted NECK: supple without lymphadenopathy. Trachea is central. No cervical or axillary lymphadenopathy noted. Carotids are 2+, JVD WNL LUNGS: Respiration seems nonlabored, no significant accessory muscle action noted. Bibasal a fine crackles are noted. No significant dullness noted. CHEST: Palpation of the chest wall shows no significant chest wall tenderness. No other significant abnormalities noted. HEART: [place] [employer], No PSH, 2-3/6 [place] aortic area, 1/6 perdue systolic murmur mitral area, no rubs, no gallops. ABDOMEN: Soft, no significant tenderness appreciated, normoactive bowel sounds. No guarding, no rebound. No rigidity noted . No masses appreciated. EXTREMITIES: Pedal pulses are 1-2+, no calf tenderness noted. No clubbing or cyanosis.trace to 1+ pedal edema noted NEUROLOGICAL: Focused neurological exam showed no significant neurologic deficit. Normal speech, no focal weakness appreciated. PSYCH: Normal mood, normal affect. Judgment and insight within normal limits. SKIN: No significant ecchymosis, rash, ulcerations or signs of pruritus noted. MUSCULOSKELETAL EXAM: No significant joint swelling noted. Results Laboratory Results: 12/16/16 03:44 12/17/16 04:03 12/16/16 12/17/16 14:49 04:03 Sodium 139.0 138.8 Potassium 3.0 L* 4.2 D Chloride 86 L 88 L Carbon Dioxide 37 H 38 H Anion Gap 16 13 BUN 62 H 62 H Creatinine 1.59 H 1.56 H Est GFR ( Amer) 38 L 39 L Est GFR (Non-Af Amer) 31 L 32 L Glucose 252 H 141 H Calcium 11.1 H 10.6 H Phosphorus 3.9 Albumin 3.6 12/15/16 15:15 Ramon Catheter Urine Culture - Final NO GROWTH 2 DAYS Impressions: Chest X-Ray 12/14/16 22:44 IMPRESSION: Mild increase bilateral basilar interstitial markings and pleural effusions. Renal Ultrasound 12/15/16 00:00 IMPRESSION: 1. Left renal atrophy relative to the right kidney. No obstructive changes. 2. Bladder looks relatively unremarkable, fairly nondistended. Abdomen X-Ray 12/15/16 02:51 IMPRESSION: NO RADIOGRAPHIC EVIDENCE FOR ACUTE ABDOMINAL DISEASE. Assessment & Plan - Diagnosis (1) Acute on chronic congestive heart failure Qualifiers: Congestive heart failure type: combined Qualified Code(s): I50.43 - Acute on chronic combined systolic (congestive) and diastolic (congestive) heart failure Is this a current diagnosis for this admission?: Yes (2) COPD (chronic obstructive pulmonary disease) Qualifiers: Emphysema type: unspecified Is this a current diagnosis for this admission?: Yes (3) Cardiorenal syndrome with renal failure Is this a current diagnosis for this admission?: Yes (4) Chronic kidney disease, stage IV (severe) Is this a current diagnosis for this admission?: Yes (5) Mitral regurgitation Qualifiers: Cardiac valve disease etiology: nonrheumatic Qualified Code(s): I34.0 - Nonrheumatic mitral (valve) insufficiency Is this a current diagnosis for this admission?: Yes - Notes Notes: Acute on chronic congestive heart failure: Patient still has some evidence of fluid retention. Continue with IV Lasix. Consider switching to by mouth Demadex when more stable. Will follow closely, volume status. COPD: Currently stable. Continue with current management plans. Currently significantly improved. Chronic kidney disease: Currently stable. Will monitor renal functions. Renal functions are improving and nephrology following. Cardiorenal syndrome with renal failure: Patient may have decreased cardiac output as cause of fall reduced renal renal function. Will recommend nitrate and other vasodilators. Hydralazine lists in the allergies. Nitrates were added to the regimen. Patient seems to be tolerating that. Mitral regurgitation: Previous echocardiogram reviewed. By my review patient was noted to have rather moderate to severe mitral regurgitation, will therefore repeat echocardiogram. Patient may have LV systolic dysfunction. This was discussed with the patient. Patient's overall prognosis is guarded. Status post pacemaker placement: This seems to be functioning normally based on telemetry strip reviewed. Patient's medications reviewed. Patient started on Imdur 30 mg by mouth daily yesterday. Will add Norvasc in place of reducing Cardizem, because of CHF and possible LV systolic dysfunction. - Time Time with patient: Greater than 35 minutes - CODE STATUS : was discussed, patient remains DO NOT RESUSCITATE. Surrogate decision-maker unchanged. Multiple medical problems were addressed.More than 50% of the time spent coordinating care, discussing management plans with involved caregivers. Management plans discussed with involved personnels. Medical decision making was of moderate to high complexity, patient's has multiple severe comorbidities. Medications reviewed and adjusted accordingly: Yes - multiple medication changes performed.
[2016-12-17] MEDS: INSULIN LISPRO 100 UNIT/ML 3 ML VIAL SUBCUT PRN ×3 (14:09→22:25)
[2016-12-17] MEDS: PHARMACY COMMUNICATION ORDER MC SCH (17:30)
--- NOTE | 2016-12-17 18:19 | PDOC PROGRESS REPORT ---
Subjective Progress Note for:: 12/17/16 Subjective:: Patient is doing fine today. She is breathing better. The only complaint she has is she feels some burning on her urethra where she had a Ramon catheter inserted. Otherwise doesn't have any other new complaints. Physical Exam Vital Signs: Temp Pulse Resp BP Pulse Ox 99.3 F 62 18 137/47 H 94 12/17/16 17:07 12/17/16 18:02 12/17/16 18:02 12/17/16 17:07 12/17/16 17:07 Intake & Output 12/16/16 12/17/16 12/18/16 06:59 06:59 06:59 Intake Total 915 845 480 Output Total 4300 4600 Balance -0475 -1025 480 Weight 75.1 kg 72 kg Exam: General appearance: PRESENT: no acute distress, cooperative, well-developed, well-nourished Head exam: PRESENT: atraumatic, normocephalic Eye exam: PRESENT: conjunctiva pale, PERRLA. ABSENT: scleral icterus Neck exam: ABSENT: JVD Respiratory exam: PRESENT: Diminished breath sounds. Bibasal crackles ABSENT: rhonchi, unlabored, wheezes Cardiovascular exam: PRESENT: Regular rate rhythm -+S1, +S2. Grade 2/6 systolic murmur GI/Abdominal exam: PRESENT: normal bowel sounds, soft. ABSENT: guarding, mass, tenderness Extremities exam: Mild lower extremity bilateral edema Neurological exam: PRESENT: alert, awake, oriented to person, place and time. Skin exam: PRESENT: dry, warm, Results Laboratory Results: 12/16/16 03:44 12/17/16 04:03 12/17/16 04:03 Sodium 138.8 Potassium 4.2 D Chloride 88 L Carbon Dioxide 38 H Anion Gap 13 BUN 62 H Creatinine 1.56 H Est GFR ( Amer) 39 L Est GFR (Non-Af Amer) 32 L Glucose 141 H Calcium 10.6 H Phosphorus 3.9 Albumin 3.6 12/15/16 15:15 Ramon Catheter Urine Culture - Final NO GROWTH 2 DAYS Impressions: Chest X-Ray 12/14/16 22:44 IMPRESSION: Mild increase bilateral basilar interstitial markings and pleural effusions. Renal Ultrasound 12/15/16 00:00 IMPRESSION: 1. Left renal atrophy relative to the right kidney. No obstructive changes. 2. Bladder looks relatively unremarkable, fairly nondistended. Abdomen X-Ray 12/15/16 02:51 IMPRESSION: NO RADIOGRAPHIC EVIDENCE FOR ACUTE ABDOMINAL DISEASE. Assessment & Plan - Diagnosis (1) Acute kidney injury superimposed on chronic kidney disease Is this a current diagnosis for this admission?: YesPlan: Patient is in chronic prerenal state as evident by urine sodium less than 5. This is consistent again with acute exacerbation for cardiorenal syndrome. Patient seems to have had an acute pulmonary edema. Her duplex of the renal arteries revealed no hemodynamically significant renal artery stenosis. Currently on torsemide at 60 mg twice a day as well as the metolazone with the current dose. We'll monitor kidney function, electrolytes and urine output. Closely from this point. Avoid any other further nephrotoxic agents. (2) Cardiorenal syndrome with renal failure Is this a current diagnosis for this admission?: Yes (3) Chronic kidney disease, stage IV (severe) Is this a current diagnosis for this admission?: Yes (4) Diuretic-induced hypokalemia Is this a current diagnosis for this admission?: YesPlan: Replace potassium as needed (5) Acute respiratory failure with hypoxia Is this a current diagnosis for this admission?: Yes (6) Acute on chronic congestive heart failure Qualifiers: Congestive heart failure type: combined Qualified Code(s): I50.43 - Acute on chronic combined systolic (congestive) and diastolic (congestive) heart failure Is this a current diagnosis for this admission?: Yes (7) Diabetes mellitus type 2 Is this a current diagnosis for this admission?: Yes (8) Anemia in chronic kidney disease Is this a current diagnosis for this admission?: Yes (9) Hypercalcemia Is this a current diagnosis for this admission?: YesPlan: Improving. (10) Hypertension Qualifiers: Hypertension type: essential hypertension Qualified Code(s): I10 - Essential (primary) hypertension Is this a current diagnosis for this admission?: Yes (11) Hyponatremia Is this a current diagnosis for this admission?: YesPlan: Resolved. (12) Dysuria Is this a current diagnosis for this admission?: YesPlan: We will send urinalysis and urine culture again today. - Time Time with patient: 15-25 minutes
[2016-12-17 20:25] LABS: APPEARANCE,URINE SLIGHTLY-CLOUDY; BILIRUBIN,URINE NEGATIVE (NEGATIVE); GLUCOSE, URINE NEGATIVE (NEGATIVE); KETONES,URINE NEGATIVE (NEGATIVE); LEUKOCYTE ESTERASE,URINE LARGE (NEGATIVE); NITRITE,URINE NEGATIVE (NEGATIVE); PROTEIN,URINE NEGATIVE (NEGATIVE); URINE SPECIFIC GRAVITY 1.009; UROBILINOGEN,URINE NEGATIVE mg/dL (<2.0)
--- NOTE | 2016-12-17 21:16 | PDOC PROGRESS REPORT ---
Subjective Progress Note for:: 12/17/16 Subjective:: Patient complains of fatigue. Dyspnea improved. No fever, chills, chest pain, nausea. Physical Exam Vital Signs: Temp Pulse Resp BP Pulse Ox 99.3 F 60 18 137/47 H 94 12/17/16 17:07 12/17/16 19:00 12/17/16 18:02 12/17/16 17:07 12/17/16 17:07 Intake & Output 12/16/16 12/17/16 12/18/16 06:59 06:59 06:59 Intake Total 651 635 2649 Output Total 4300 4600 450 Balance -2698 -3776 640 Weight 75.1 kg 72 kg General appearance: PRESENT: mild distress, chronically ill and pale Head exam: PRESENT: atraumatic, normocephalic Eye exam: PRESENT: conjunctiva pink, EOMI, PERRLA. ABSENT: scleral icterus Respiratory exam: PRESENT: CTA - Bilaterally. ABSENT: accessory muscle use, chest wall tenderness Cardiovascular exam: PRESENT: RRR Pulses: PRESENT: normal dorsalis pedis pul GI/Abdominal exam: PRESENT: normal bowel sounds, soft. ABSENT: distended, guarding, mass, organolmegaly, rebound, tenderness Extremities exam: PRESENT: full ROM. ABSENT: calf tenderness, clubbing, pedal edema Skin exam: PRESENT: dry, intact, warm. ABSENT: cyanosis, rash Results Laboratory Results: 12/16/16 03:44 12/17/16 04:03 12/17/16 12/17/16 04:03 20:00 Sodium 138.8 Potassium 4.2 D Chloride 88 L Carbon Dioxide 38 H Anion Gap 13 BUN 62 H Creatinine 1.56 H Est GFR ( Amer) 39 L Est GFR (Non-Af Amer) 32 L Glucose 141 H Calcium 10.6 H Phosphorus 3.9 Albumin 3.6 Urine Color YELLOW Urine Appearance SLIGHTLY-CLOUDY Urine pH 6.0 Ur Specific [place] 1.009 Urine Protein NEGATIVE Urine Glucose (UA) NEGATIVE Urine Ketones NEGATIVE Urine Blood NEGATIVE Urine Nitrite NEGATIVE Ur Leukocyte Esterase LARGE H Urine WBC (Auto) 166 Urine RBC (Auto) 2 12/15/16 15:15 Ramon Catheter Urine Culture - Final NO GROWTH 2 DAYS Impressions: Chest X-Ray 12/14/16 22:44 IMPRESSION: Mild increase bilateral basilar interstitial markings and pleural effusions. Renal Ultrasound 12/15/16 00:00 IMPRESSION: 1. Left renal atrophy relative to the right kidney. No obstructive changes. 2. Bladder looks relatively unremarkable, fairly nondistended. Abdomen X-Ray 12/15/16 02:51 IMPRESSION: NO RADIOGRAPHIC EVIDENCE FOR ACUTE ABDOMINAL DISEASE. Assessment & Plan - Diagnosis (1) Acute kidney injury superimposed on chronic kidney disease Is this a current diagnosis for this admission?: YesPlan: Improving. Nephrology following. (2) Acute on chronic congestive heart failure Qualifiers: Congestive heart failure type: combined Qualified Code(s): I50.43 - Acute on chronic combined systolic (congestive) and diastolic (congestive) heart failure Is this a current diagnosis for this admission?: YesPlan: Stable on Coreg, Torsemide, Zaroxolyn. Cardiology following. (3) COPD (chronic obstructive pulmonary disease) Qualifiers: Emphysema type: unspecified Is this a current diagnosis for this admission?: Yes (4) Diabetes mellitus type I Qualifiers: Diabetes mellitus complication status: with unspecified complications Qualified Code(s): E10.8 - Type 1 diabetes mellitus with unspecified complications Is this a current diagnosis for this admission?: YesPlan: Lantus 30 units subQ daily. Sliding scale Humalog. (5) Generalized weakness Is this a current diagnosis for this admission?: YesPlan: PT to evaluate. (6) Hyperkalemia Is this a current diagnosis for this admission?: YesPlan: Resolved. (7) Hyponatremia Is this a current diagnosis for this admission?: YesPlan: Resolved. (8) UTI (urinary tract infection) Qualifiers: Urinary tract infection type: site unspecified Hematuria presence: without hematuria Qualified Code(s): N39.0 - Urinary tract infection, site not specified Is this a current diagnosis for this admission?: YesPlan: Start doxycycline pending urine culture. (9) Hypercholesteremia Is this a current diagnosis for this admission?: YesPlan: Discontinue Lipitor as family states patient is allergic to all statins except Crestor (not on formulary). Resume Crestor after discharge. (10) Pacemaker Is this a current diagnosis for this admission?: Yes - Time Time Spent with patient: 35 or more minutes Anticipated discharge: Home with Homehealth Within: within 72 hours
[2016-12-17] MEDS: GABAPENTIN 300 MG CAPSULE PO SCH (22:04)
[2016-12-17] MEDS: DOXYCYCLINE HYCLATE 100 MG TABLET PO SCH (22:04)
[2016-12-17] MEDS: GABAPENTIN 100 MG CAPSULE PO SCH (22:13)
[2016-12-17] MEDS: SIMETHICONE 80 MG TAB.CHEW PO PRN (22:25)
[2016-12-18 05:16] LABS: ABSOLUTE BASOPHILS # (AUTO) 0.1 10^3/uL (0.0-0.2); ABSOLUTE EOSINOPHILS # (AUTO) 0.1 10^3/uL (0.0-0.6); ABSOLUTE LYMPHOCYTES (AUTO) 0.8 10^3/uL (0.5-4.7); ABSOLUTE MONOCYTES (AUTO) 0.4 10^3/uL (0.1-1.4); ABSOLUTE NEUT (AUTO) 3.6 10^3/uL (1.7-8.2); BASOPHILS % (AUTO) 1.2 % (0-2); EOSINOPHILS % (AUTO) 1.4 % (0-6); HEMATOCRIT 29.6 % (36.0-47.0); HGB HCT DIFFERENCE 0.4; LYMPHOCYTES % (AUTO) 16.7 % (13-45); MEAN CORPUSCULAR HEMOGLOBIN 30.4 pg (27.0-33.4); MEAN CORPUSCULAR HGB CONC 33.9 g/dL (32.0-36.0); MEAN CORPUSCULAR VOLUME 90 fl (80-97); MONOCYTES % (AUTO) 8.3 % (3-13); SEGMENTED NEUTROPHILS % (AUTO) 72.4 % (42-78); WHITE BLOOD COUNT 4.9 10^3/uL (4.0-10.5)
[2016-12-18 05:54] LABS: ANION GAP 13 (5-19); BLOOD UREA NITROGEN 71 mg/dL (7-20); CALCIUM 10.5 mg/dL (8.4-10.2); CARBON DIOXIDE 37 mmol/L (22-30); CHLORIDE 87 mmol/L (98-107); CREATININE RESULT 2.33 mg/dL (0.52-1.25); GLUCOSE 139 mg/dL (75-110); POTASSIUM 3.8 mmol/L (3.6-5.0); SODIUM 137.1 mmol/L (137-145)
[2016-12-18] MEDS: HEPARIN SOD (PORCINE) 5,000 UNIT/ML 1 ML SYRINGE SUBCUT SCH ×3 (05:54→21:47)
[2016-12-18] MEDS ORDERED: AMLODIPINE BESYLATE 5 MG TABLET PO SCH (10:00)
[2016-12-18] MEDS ORDERED: AMLODIPINE BESYLATE 10 MG TABLET PO SCH (10:00)
[2016-12-18] MEDS: OMEGA-3 ACID ETHYL ESTERS 1 GM CAPSULE PO SCH ×2 (10:43→17:33)
[2016-12-18] MEDS: CARVEDILOL 12.5 MG TABLET PO SCH ×2 (10:45→21:47)
[2016-12-18] MEDS: HYDROCODONE/ACETAMINOPHEN 10-325 MG TABLET PO PRN ×2 (10:45→17:33)
[2016-12-18] MEDS: ISOSORBIDE MONONITRATE 30 MG TAB.ER.24H PO SCH (10:45)
[2016-12-18] MEDS: PAROXETINE HCL 20 MG TABLET PO SCH (10:46)
[2016-12-18] MEDS: FAMOTIDINE 20 MG TABLET PO SCH ×2 (10:46→21:49)
[2016-12-18] MEDS: DOXYCYCLINE HYCLATE 100 MG TABLET PO SCH ×2 (10:48→21:49)
[2016-12-18] MEDS: ALLOPURINOL 100 MG TABLET PO SCH (10:48)
[2016-12-18] MEDS: MAGNESIUM OXIDE 400 MG TABLET PO SCH ×3 (10:48→17:33)
[2016-12-18] MEDS: TORSEMIDE 20 MG TABLET PO SCH ×2 (10:49→17:34)
[2016-12-18] MEDS: FENOFIBRATE NANOCRYSTALLIZED 145 MG TABLET PO SCH (10:49)
[2016-12-18] MEDS: METOLAZONE 2.5 MG TABLET PO SCH (10:50)
[2016-12-18] MEDS: ASPIRIN 81 MG TABLET, ENT COATED PO SCH (10:53)
[2016-12-18] MEDS: ASCORBIC ACID 500 MG TABLET PO SCH (10:55)
[2016-12-18] MEDS: INSULIN LISPRO 100 UNIT/ML 3 ML VIAL SUBCUT PRN ×3 (11:03→23:03)
[2016-12-18] MEDS: FLUTICASONE NASAL SPRAY 50 MCG/SPRY 120 SPRAY/16 GM NASL SCH ×2 (11:17→21:49)
[2016-12-18] MEDS: INSULIN GLARGINE,HUM.REC.ANLOG 300 UNIT/3 ML INSULN.PEN SUBCUT SCH (11:17)
--- NOTE | 2016-12-18 12:18 | PDOC PROGRESS REPORT ---
Subjective Progress Note for:: 12/18/16 Subjective:: Patient seems better as regards shortness of breath but has worsening renal functions. Pt is denying any chest arm or neck discomfort. Patient denying any PND, orthopnea. Patient denied any sustained palpitations, dizziness, syncope, near syncope. Patient denying any fever chills. Patient denying any other significant discomfort. Respiratory status has improved. Renal functions are showing some worsening Patient is maintaining AV paced rhythm. Review of systems: Rest review of systems negative. Medications: Medications have been reviewed. Physical Exam Vital Signs: Temp Pulse Resp BP Pulse Ox 98.1 F 59 L 16 148/49 H 100 12/18/16 07:36 12/18/16 07:36 12/18/16 07:36 12/18/16 07:36 12/18/16 07:36 Intake & Output 12/17/16 12/18/16 12/19/16 06:59 06:59 06:59 Intake Total 845 1099 Output Total 4600 500 Balance -3755 599 Weight 72 kg 72.8 kg Exam: GENERAL: well-nourished and in no acute distress. Alert and oriented x3 HEAD: Atraumatic, normocephalic. EYES: Pupils equal round and reactive to light, extraocular movements intact, sclera anicteric, conjunctiva are normal. ENT: TMs normal, nares patent, oropharynx clear without exudates. Moist mucous membranes. No oral ulcerations or bleeding gums noted NECK: supple without lymphadenopathy. Trachea is central. No cervical or axillary lymphadenopathy noted. Carotids are 2+, JVD WNL LUNGS: Respiration seems nonlabored, no significant accessory muscle action noted. Breath sounds clear to auscultation bilaterally and equal noted. No wheezes rales or rhonchi noted. No significant dullness noted on percussion. CHEST: Palpation of the chest wall shows no significant chest wall tenderness. No other significant abnormalities noted. HEART: [place] [employer], No PSH, 2/6 [place] aortic area, 1/6 per[place] systolic murmur mitral area , no rubs, no gallops. ABDOMEN: Soft, no significant tenderness appreciated, normoactive bowel sounds. No guarding, no rebound. No rigidity noted . No masses appreciated. EXTREMITIES: Pedal pulses are 1-2+, no calf tenderness noted. No clubbing or cyanosis.trace to 1+ pedal edema noted NEUROLOGICAL: Focused neurological exam showed no significant neurologic deficit. Normal speech, no focal weakness appreciated. PSYCH: Normal mood, normal affect. Judgment and insight within normal limits. SKIN: No significant ecchymosis, rash, ulcerations or signs of pruritus noted. MUSCULOSKELETAL EXAM: No significant joint swelling noted. Results Laboratory Results: 12/18/16 04:14 12/18/16 04:14 12/17/16 12/17/16 12/18/16 04:03 20:00 04:14 WBC 4.9 RBC 3.30 L Hgb 10.0 L Hct 29.6 L MCV 90 MCH 30.4 MCHC 33.9 RDW 16.0 H Plt Count 194 Seg Neutrophils % 72.4 Lymphocytes % 16.7 Monocytes % 8.3 Eosinophils % 1.4 Basophils % 1.2 Absolute Neutrophils 3.6 Absolute Lymphocytes 0.8 Absolute Monocytes 0.4 Absolute Eosinophils 0.1 Absolute Basophils 0.1 Sodium Potassium Chloride Carbon Dioxide Anion Gap BUN Creatinine Est GFR ( Amer) Est GFR (Non-Af Amer) Glucose Calcium PTH Intact 60 Urine Color YELLOW Urine Appearance SLIGHTLY-CLOUDY Urine pH 6.0 Ur Specific [place] 1.009 Urine Protein NEGATIVE Urine Glucose (UA) NEGATIVE Urine Ketones NEGATIVE Urine Blood NEGATIVE Urine Nitrite NEGATIVE Ur Leukocyte Esterase LARGE H Urine WBC (Auto) 166 Urine RBC (Auto) 2 12/18/16 04:14 WBC RBC Hgb Hct MCV MCH MCHC RDW Plt Count Seg Neutrophils % Lymphocytes % Monocytes % Eosinophils % Basophils % Absolute Neutrophils Absolute Lymphocytes Absolute Monocytes Absolute Eosinophils Absolute Basophils Sodium 137.1 Potassium 3.8 Chloride 87 L Carbon Dioxide 37 H Anion Gap 13 BUN 71 H Creatinine 2.33 H Est GFR ( Amer) 24 L Est GFR (Non-Af Amer) 20 L Glucose 139 H Calcium 10.5 H PTH Intact Urine Color Urine Appearance Urine pH Ur Specific [place] Urine Protein Urine Glucose (UA) Urine Ketones Urine Blood Urine Nitrite Ur Leukocyte Esterase Urine WBC (Auto) Urine RBC (Auto) 12/15/16 15:15 Ramon Catheter Urine Culture - Final NO GROWTH 2 DAYS Impressions: Chest X-Ray 12/14/16 22:44 IMPRESSION: Mild increase bilateral basilar interstitial markings and pleural effusions. Renal Ultrasound 12/15/16 00:00 IMPRESSION: 1. Left renal atrophy relative to the right kidney. No obstructive changes. 2. Bladder looks relatively unremarkable, fairly nondistended. Abdomen X-Ray 12/15/16 02:51 IMPRESSION: NO RADIOGRAPHIC EVIDENCE FOR ACUTE ABDOMINAL DISEASE. Assessment & Plan - Diagnosis (1) Acute on chronic congestive heart failure Qualifiers: Congestive heart failure type: combined Qualified Code(s): I50.43 - Acute on chronic combined systolic (congestive) and diastolic (congestive) heart failure Is this a current diagnosis for this admission?: Yes (2) COPD (chronic obstructive pulmonary disease) Qualifiers: Emphysema type: unspecified Is this a current diagnosis for this admission?: Yes (3) Cardiorenal syndrome with renal failure Is this a current diagnosis for this admission?: Yes (4) Chronic kidney disease, stage IV (severe) Is this a current diagnosis for this admission?: Yes (5) Mitral regurgitation Qualifiers: Cardiac valve disease etiology: nonrheumatic Qualified Code(s): I34.0 - Nonrheumatic mitral (valve) insufficiency Is this a current diagnosis for this admission?: Yes - Notes Notes: Acute on chronic congestive heart failure: Patient seems euvolemic today and possibly somewhat volume depleted. Recommend reducing Demadex to 20 mg by mouth daily. COPD: Currently stable. Cardiorenal syndrome with renal failure: Renal functions were better yesterday but worse today. Patient probably intravascularly volume depleted. Chronic kidney disease: Stage IV. Renal functions have worsened. Mitral regurgitation: Have ordered a 2-D echocardiogram. Hypertension: Yesterday I discontinued Cardizem and placed patient on Norvasc 5 mg by mouth daily. Believe patient has some degree of systolic dysfunction and this was the reason for discontinuing Cardizem. Continue with beta renee therapy. Have ordered a chest x-ray to assess fluid status and follow-up CHF. - Time Time with patient: 15-25 minutes - CODE STATUS : was discussed, patient remains DO NOT RESUSCITATE. Surrogate decision-maker unchanged. Multiple medical problems were addressed.More than 50% of the time spent coordinating care, discussing management plans with involved caregivers. Management plans discussed with involved personnels. Medical decision making was of moderate to high complexity, patient's has multiple severe comorbidities. Medications reviewed and adjusted accordingly: Yes - reduce Demadex to 20 mg by mouth daily
[2016-12-18] MEDS: ANASTROZOLE 1 MG TABLET PO SCH (13:23)
--- NOTE | 2016-12-18 14:54 | PDOC PROGRESS REPORT ---
Subjective Progress Note for:: 12/18/16 Subjective:: Patient was walking in the hallway when I saw her with the physical therapist. She walk about 50 feet and she is cooperating fairly well. He seems to be comfortable and breathing with the nasal cannula without any difficulty. She doesn't have any other complaints. Physical Exam Vital Signs: Temp Pulse Resp BP Pulse Ox 99.3 F 64 18 138/93 H 97 12/18/16 12:17 12/18/16 14:00 12/18/16 12:17 12/18/16 12:17 12/18/16 12:17 Intake & Output 12/17/16 12/18/16 12/19/16 06:59 06:59 06:59 Intake Total 845 1099 Output Total 4600 500 Balance -3755 599 Weight 72 kg 72.8 kg Exam: General appearance: [PRESENT: no acute distress, cooperative, well-developed, well-nourished] Head exam: [PRESENT: atraumatic, normocephalic] Eye exam: [PRESENT: conjunctiva pale, PERRLA. ABSENT: scleral icterus] Neck exam: [ABSENT: JVD] Respiratory exam: [PRESENT: Diminished breath sounds. Bibasilar crackles unchanged ABSENT: rhonchi, unlabored, wheezes] Cardiovascular exam: [PRESENT: Regular rate rhythm -+S1, +S2. ABSENT: diastolic murmur, systolic murmur] GI/Abdominal exam: [PRESENT: normal bowel sounds, soft. ABSENT: guarding, mass , tenderness] Extremities exam: [Trace bilateral lower extremity edema] Neurological exam: [PRESENT: alert, awake, oriented to person, place and time.] Skin exam: [PRESENT: dry, warm,] Results Laboratory Results: 12/18/16 04:14 12/18/16 04:14 12/17/16 12/17/16 12/18/16 04:03 20:00 04:14 WBC 4.9 RBC 3.30 L Hgb 10.0 L Hct 29.6 L MCV 90 MCH 30.4 MCHC 33.9 RDW 16.0 H Plt Count 194 Seg Neutrophils % 72.4 Lymphocytes % 16.7 Monocytes % 8.3 Eosinophils % 1.4 Basophils % 1.2 Absolute Neutrophils 3.6 Absolute Lymphocytes 0.8 Absolute Monocytes 0.4 Absolute Eosinophils 0.1 Absolute Basophils 0.1 Sodium Potassium Chloride Carbon Dioxide Anion Gap BUN Creatinine Est GFR ( Amer) Est GFR (Non-Af Amer) Glucose Calcium PTH Intact 60 Urine Color YELLOW Urine Appearance SLIGHTLY-CLOUDY Urine pH 6.0 Ur Specific Levels 1.009 Urine Protein NEGATIVE Urine Glucose (UA) NEGATIVE Urine Ketones NEGATIVE Urine Blood NEGATIVE Urine Nitrite NEGATIVE Ur Leukocyte Esterase LARGE H Urine WBC (Auto) 166 Urine RBC (Auto) 2 12/18/16 04:14 WBC RBC Hgb Hct MCV MCH MCHC RDW Plt Count Seg Neutrophils % Lymphocytes % Monocytes % Eosinophils % Basophils % Absolute Neutrophils Absolute Lymphocytes Absolute Monocytes Absolute Eosinophils Absolute Basophils Sodium 137.1 Potassium 3.8 Chloride 87 L Carbon Dioxide 37 H Anion Gap 13 BUN 71 H Creatinine 2.33 H Est GFR ( Amer) 24 L Est GFR (Non-Af Amer) 20 L Glucose 139 H Calcium 10.5 H PTH Intact Urine Color Urine Appearance Urine pH Ur Specific Levels Urine Protein Urine Glucose (UA) Urine Ketones Urine Blood Urine Nitrite Ur Leukocyte Esterase Urine WBC (Auto) Urine RBC (Auto) Impressions: Chest X-Ray 12/14/16 22:44 IMPRESSION: Mild increase bilateral basilar interstitial markings and pleural effusions. Renal Ultrasound 12/15/16 00:00 IMPRESSION: 1. Left renal atrophy relative to the right kidney. No obstructive changes. 2. Bladder looks relatively unremarkable, fairly nondistended. Abdomen X-Ray 12/15/16 02:51 IMPRESSION: NO RADIOGRAPHIC EVIDENCE FOR ACUTE ABDOMINAL DISEASE. Assessment & Plan - Diagnosis (1) Acute kidney injury superimposed on chronic kidney disease Is this a current diagnosis for this admission?: YesPlan: Patient is in chronic prerenal state as evident by urine sodium less than 5. This is consistent again with acute exacerbation for cardiorenal syndrome. Patient seems to have had an acute pulmonary edema. Her duplex of the renal arteries revealed no hemodynamically significant renal artery stenosis. Currently on torsemide at 60 mg twice a day as well as the metolazone with the current dose. We'll monitor kidney function, electrolytes and urine output. Closely from this point. Avoid any other further nephrotoxic agents. Patient's creatinine increased today a little bit. Patient's baseline kidney function is actually with creatinine ranging from 2-3. I am not worried with this increase in creatinine, I think this might actually close to her baseline from history. I discussed this with Dr. Porter today. I will continue the same dose of torsemide and metolazone for now. I would rather see the patient on slightly dry side and not congested with comfortable breathing rather than go with the creatinine and decrease the diuretics. We will monitor the patient very carefully while here so we can determine the dose of her diuretics that she can go home comfortably with to prevent another exacerbation. Dr. Porter agreed with the plan. (2) Cardiorenal syndrome with renal failure Is this a current diagnosis for this admission?: Yes (3) Chronic kidney disease, stage IV (severe) Is this a current diagnosis for this admission?: Yes (4) Diuretic-induced hypokalemia Is this a current diagnosis for this admission?: YesPlan: Resolved. (5) Acute respiratory failure with hypoxia Is this a current diagnosis for this admission?: Yes (6) Acute on chronic congestive heart failure Qualifiers: Congestive heart failure type: combined Qualified Code(s): I50.43 - Acute on chronic combined systolic (congestive) and diastolic (congestive) heart failure Is this a current diagnosis for this admission?: Yes (7) Diabetes mellitus type 2 Is this a current diagnosis for this admission?: Yes (8) Anemia in chronic kidney disease Is this a current diagnosis for this admission?: Yes (9) Hypercalcemia Is this a current diagnosis for this admission?: YesPlan: Improving. (10) Hypertension Qualifiers: Hypertension type: essential hypertension Qualified Code(s): I10 - Essential (primary) hypertension Is this a current diagnosis for this admission?: Yes (11) Hyponatremia Is this a current diagnosis for this admission?: YesPlan: Resolved. - Time Time with patient: Greater than 35 minutes
--- NOTE | 2016-12-18 15:04 | PDOC PROGRESS REPORT ---
Subjective Progress Note for:: 12/18/16 Subjective:: Patient feels generally better than yesterday. Patient denies fever, chills, headache, new focal weakness, chest pain, shortness of breath, abdominal pain, nausea, vomiting, diarrhea, constipation. Physical Exam Vital Signs: Temp Pulse Resp BP Pulse Ox 99.3 F 64 18 138/93 H 97 12/18/16 12:17 12/18/16 14:00 12/18/16 12:17 12/18/16 12:17 12/18/16 12:17 Intake & Output 12/17/16 12/18/16 12/19/16 06:59 06:59 06:59 Intake Total 845 1099 Output Total 4600 500 Balance -3755 599 Weight 72 kg 72.8 kg GENERAL: No acute distress HEENT: Conjunctiva clear, nonicteric, moist mucous membranes, no JVD, midline trachea RESPIRATORY: Clear to auscultation bilaterally, no wheezes, no rhonchi CARDIAC: Regular rate and rhythm, no murmurs/gallops/rubs ABDOMEN: Soft, nondistended, nontender, positive bowel sounds, no rebound, no guarding EXTREMETIES: No edema, cyanosis, clubbing NEUROLOGIC: Alert, oriented to person/place/time, CN's grossly intact, no focal deficits SKIN: No rash, wounds PSYCH: Normal mood, normal affect Results Laboratory Results: 12/18/16 04:14 12/18/16 04:14 12/17/16 12/17/16 12/18/16 04:03 20:00 04:14 WBC 4.9 RBC 3.30 L Hgb 10.0 L Hct 29.6 L MCV 90 MCH 30.4 MCHC 33.9 RDW 16.0 H Plt Count 194 Seg Neutrophils % 72.4 Lymphocytes % 16.7 Monocytes % 8.3 Eosinophils % 1.4 Basophils % 1.2 Absolute Neutrophils 3.6 Absolute Lymphocytes 0.8 Absolute Monocytes 0.4 Absolute Eosinophils 0.1 Absolute Basophils 0.1 Sodium Potassium Chloride Carbon Dioxide Anion Gap BUN Creatinine Est GFR ( Amer) Est GFR (Non-Af Amer) Glucose Calcium PTH Intact 60 Urine Color YELLOW Urine Appearance SLIGHTLY-CLOUDY Urine pH 6.0 Ur Specific [place] 1.009 Urine Protein NEGATIVE Urine Glucose (UA) NEGATIVE Urine Ketones NEGATIVE Urine Blood NEGATIVE Urine Nitrite NEGATIVE Ur Leukocyte Esterase LARGE H Urine WBC (Auto) 166 Urine RBC (Auto) 2 12/18/16 04:14 WBC RBC Hgb Hct MCV MCH MCHC RDW Plt Count Seg Neutrophils % Lymphocytes % Monocytes % Eosinophils % Basophils % Absolute Neutrophils Absolute Lymphocytes Absolute Monocytes Absolute Eosinophils Absolute Basophils Sodium 137.1 Potassium 3.8 Chloride 87 L Carbon Dioxide 37 H Anion Gap 13 BUN 71 H Creatinine 2.33 H Est GFR ( Amer) 24 L Est GFR (Non-Af Amer) 20 L Glucose 139 H Calcium 10.5 H PTH Intact Urine Color Urine Appearance Urine pH Ur Specific [place] Urine Protein Urine Glucose (UA) Urine Ketones Urine Blood Urine Nitrite Ur Leukocyte Esterase Urine WBC (Auto) Urine RBC (Auto) Impressions: Chest X-Ray 12/14/16 22:44 IMPRESSION: Mild increase bilateral basilar interstitial markings and pleural effusions. Renal Ultrasound 12/15/16 00:00 IMPRESSION: 1. Left renal atrophy relative to the right kidney. No obstructive changes. 2. Bladder looks relatively unremarkable, fairly nondistended. Abdomen X-Ray 12/15/16 02:51 IMPRESSION: NO RADIOGRAPHIC EVIDENCE FOR ACUTE ABDOMINAL DISEASE. Assessment & Plan - Diagnosis (1) Acute kidney injury superimposed on chronic kidney disease Is this a current diagnosis for this admission?: YesPlan: Kidney function slightly worse today. Patient is possibly overdiuresis. I would like to decrease torsemide to 40 mg twice daily. I would like to discontinue Zaroxolyn for now. Nephrology following. (2) Acute on chronic congestive heart failure Qualifiers: Qualified Code(s): I50.43 - Acute on chronic combined systolic ( congestive) and diastolic (congestive) heart failure Is this a current diagnosis for this admission?: YesPlan: Adjust diuretics as mentioned above. Continue Coreg. Cardiology following. (3) COPD (chronic obstructive pulmonary disease) Qualifiers: Qualified Code(s): J43.9 - Emphysema, unspecified Is this a current diagnosis for this admission?: Yes (4) Diabetes mellitus type I Qualifiers: Qualified Code(s): E10.8 - Type 1 diabetes mellitus with unspecified complications Is this a current diagnosis for this admission?: YesPlan: Lantus 30 units subQ daily. Sliding scale Humalog. (5) Generalized weakness Is this a current diagnosis for this admission?: YesPlan: PT to evaluate. (6) Hyperkalemia Is this a current diagnosis for this admission?: Yes (7) Hyponatremia Is this a current diagnosis for this admission?: Yes (8) UTI (urinary tract infection) Qualifiers: Qualified Code(s): N39.0 - Urinary tract infection, site not specified Is this a current diagnosis for this admission?: YesPlan: Doxycycline pending urine culture. (9) Hypercholesteremia Is this a current diagnosis for this admission?: Yes (10) Pacemaker Is this a current diagnosis for this admission?: Yes - Time Time Spent with patient: 35 or more minutes Anticipated discharge: Home with Homehealth
[2016-12-18] MEDS: ONDANSETRON HCL INJ/PF 4 MG/2 ML SDV IV PRN (15:39)
[2016-12-18] MEDS: PHARMACY COMMUNICATION ORDER MC SCH (17:55)
[2016-12-18] MEDS ORDERED: TORSEMIDE 20 MG TABLET PO SCH (18:00)
--- NOTE | 2016-12-18 19:40 | XCELERA REPORT ---
[address] [address] Transthoracic Echocardiogram Report Name: JACINTA LUNSFORD Age: 81 yrs Gender: Female : 1935 Patient Status: Inpatient Patient Location: [id number] Study Date: 12/18/2016 10:12 AM Height: 61 in Weight: 158 lb BSA: 1.7 m2 Procedure: A complete two-dimensional transthoracic echocardiogram was performed (2D, M-mode, spectral and color flow Doppler). The study was technically adequate with some images being suboptimal in quality. Reason For Study: recurrent CHF, mitral regurgitation Ordering Physician: JAY LIMON Performed By: Amanda Vazquez Interpretation Summary LV EF is 50-55% Doppler measurements suggest pseudonormalized left ventricular relaxation, which is associated with grade II/IV or mild to moderate diastolic dysfunction The left ventricle is borderline dilated. There is mild concentric left ventricular hypertrophy. Regional wall motion abnormalities cannot be excluded due to limited visualization. The right ventricular systolic function is normal. The right atrium is normal. There is a moderate to severe amount of mitral regurgitation There is mild mitral stenosis There is moderate aortic stenosis There is a peak gradient of 35, mean 20 mm of Hg. There is a mild amount of aortic regurgitation There is a trace to mild amount of tricuspid regurgitation There is mild pulmonary hypertension by echo Right ventricular systolic pressure is estimated to be elevated at 40- 50mmHg. The inferior vena cava appeared normal and decreased < 50% with respiration (RAP 10-15 mmHg) Small right pleural effusion. Minimal pericardial effusion. MMode/2D Measurements \T\ Calculations RVDd: 3.2 cm LVIDd: 5.3 cmFS: 24.8 % Ao root diam: 2.9 cm IVSd: 1.5 cm LVIDs: 4.0 cmEDV(Teich): 136.6 ml LVPWd: 1.5 cmESV(Teich): 70.0 ml Ao root area: 6.6 cm2 EF(Teich): 48.7 % LA dimension: 4.5 cm LVOT diam: 2.0 cm LVOT area: 3.3 cm2 Doppler Measurements \T\ Calculations MV E max tiff: MV V2 max: MV P1/2t max tiff: Ao V2 max: 167.8 cm/sec 196.5 cm/sec 168.4 cm/sec 293.6 cm/sec MV A max tiff: MV max PG: MV P1/2t: 59.2 msec Ao max P.3 cm/sec 15.5 mmHg MVA(P1/2t): 3.7 cm2 34.5 mmHg MV E/A: 1.5 MV V2 mean: MV dec slope: Ao V2 mean: 105.7 cm/sec 833.1 cm/sec2 201.1 cm/sec MV mean PG: MV dec time: Ao mean P.4 mmHg 0.20 sec 19.3 mmHg MV V2 VTI: Ao V2 VTI: 72.2 cm 73.0 cm MVA(VTI): 1.5 cm2 YOBANI(I,D): 1.5 cm2 YOBANI(V,D): 1.4 cm2 AI max tiff: LV V1 max PG: SV(LVOT): 107.3 ml PA V2 max: 350.7 cm/sec 5.9 mmHg 109.6 cm/sec AI max PG: LV V1 mean PG: PA max P.2 mmHg 3.4 mmHg 4.8 mmHg AI dec slope: LV V1 max: 121.5 cm/sec 187.4 cm/sec2 LV V1 mean: AI P1/2t: 85.8 cm/sec 548.2 msec LV V1 VTI: 32.6 cm TR max tiff: 289.9 cm/sec TR max P.6 mmHg Left Ventricle There is mild concentric left ventricular hypertrophy. The left ventricle is borderline dilated. LV EF is 50-55%. Doppler measurements suggest pseudonormalized left ventricular relaxation, which is associated with grade II/IV or mild to moderate diastolic dysfunction. Regional wall motion abnormalities cannot be excluded due to limited visualization. Right Ventricle The right ventricle is grossly normal size. There is normal right ventricular wall thickness. The right ventricular systolic function is normal. Atria The right atrium is normal. The left atrium is severely dilated. Interarterial septum not well visualized and not well dopplered. Cannot comment on ASD/PFO presence. Mitral Valve There is moderate mitral leaflet calcification. There is mild mitral stenosis. There is a moderate to severe amount of mitral regurgitation. Aortic Valve The aortic valve is moderately calcified. There is moderate aortic stenosis. There is a peak gradient of 35, mean 20 mm of Hg. There is a mild amount of aortic regurgitation. Tricuspid Valve The tricuspid valve is not well visualized secondary to technical limitations. There is no tricuspid stenosis. There is a trace to mild amount of tricuspid regurgitation. There is mild pulmonary hypertension by echo. Right ventricular systolic pressure is estimated to be elevated at 40-50mmHg. Pulmonic Valve The pulmonic valve is not well visualized. Great Vessels The aortic root is not well visualized. The inferior vena cava appeared normal and decreased < 50% with respiration (RAP 10-15 mmHg). Effusions Minimal pericardial effusion. Small right pleural effusion. : JAY LIMON > Jay Limon
[2016-12-18] MEDS: GABAPENTIN 100 MG CAPSULE PO SCH (21:48)
[2016-12-19] MEDS: HYDROCODONE/ACETAMINOPHEN 10-325 MG TABLET PO PRN ×3 (00:27→22:28)
[2016-12-19 05:43] LABS: ABSOLUTE EOSINOPHILS # (AUTO) 0.1 10^3/uL (0.0-0.6); ABSOLUTE LYMPHOCYTES (AUTO) 0.9 10^3/uL (0.5-4.7); ABSOLUTE MONOCYTES (AUTO) 0.4 10^3/uL (0.1-1.4); ABSOLUTE NEUT (AUTO) 2.4 10^3/uL (1.7-8.2); BASOPHILS % (AUTO) 0.9 % (0-2); EOSINOPHILS % (AUTO) 3.4 % (0-6); HEMATOCRIT 28.8 % (36.0-47.0); HEMOGLOBIN 9.8 g/dL (12.0-15.5); HGB HCT DIFFERENCE 0.6; LYMPHOCYTES % (AUTO) 22.7 % (13-45); MEAN CORPUSCULAR HEMOGLOBIN 30.3 pg (27.0-33.4); MEAN CORPUSCULAR HGB CONC 33.9 g/dL (32.0-36.0); MEAN CORPUSCULAR VOLUME 89 fl (80-97); MONOCYTES % (AUTO) 9.4 % (3-13); RED BLOOD COUNT 3.22 10^6/uL (3.72-5.28); RED CELL DISTRIBUTION WIDTH 15.6 % (11.5-14.0); SEGMENTED NEUTROPHILS % (AUTO) 63.6 % (42-78); WHITE BLOOD COUNT 3.8 10^3/uL (4.0-10.5)
[2016-12-19 05:52] LABS: ANION GAP 11 (5-19); BLOOD UREA NITROGEN 76 mg/dL (7-20); CALCIUM 10.4 mg/dL (8.4-10.2); CARBON DIOXIDE 39 mmol/L (22-30); CHLORIDE 85 mmol/L (98-107); CREATININE RESULT 2.32 mg/dL (0.52-1.25); GLUCOSE 150 mg/dL (75-110); POTASSIUM 3.5 mmol/L (3.6-5.0); SODIUM 135.4 mmol/L (137-145)
[2016-12-19] MEDS: HEPARIN SOD (PORCINE) 5,000 UNIT/ML 1 ML SYRINGE SUBCUT SCH ×3 (06:33→22:28)
[2016-12-19] MEDS: INSULIN LISPRO 100 UNIT/ML 3 ML VIAL SUBCUT PRN ×3 (08:27→18:02)
[2016-12-19] MEDS: PAROXETINE HCL 20 MG TABLET PO SCH (08:28)
[2016-12-19] MEDS: ISOSORBIDE MONONITRATE 30 MG TAB.ER.24H PO SCH (09:31)
[2016-12-19] MEDS: ASPIRIN 81 MG TABLET, ENT COATED PO SCH (09:31)
[2016-12-19] MEDS: DOXYCYCLINE HYCLATE 100 MG TABLET PO SCH (09:31)
[2016-12-19] MEDS: ALLOPURINOL 100 MG TABLET PO SCH (09:31)
[2016-12-19] MEDS: ASCORBIC ACID 500 MG TABLET PO SCH (09:31)
[2016-12-19] MEDS: CARVEDILOL 12.5 MG TABLET PO SCH ×2 (09:32→22:30)
[2016-12-19] MEDS: FENOFIBRATE NANOCRYSTALLIZED 145 MG TABLET PO SCH (09:32)
[2016-12-19] MEDS: MAGNESIUM OXIDE 400 MG TABLET PO SCH ×3 (09:33→18:05)
[2016-12-19] MEDS: AMLODIPINE BESYLATE 10 MG TABLET PO SCH (09:33)
[2016-12-19] MEDS: OMEGA-3 ACID ETHYL ESTERS 1 GM CAPSULE PO SCH ×2 (09:34→18:06)
[2016-12-19] MEDS: FAMOTIDINE 20 MG TABLET PO SCH ×2 (09:38→22:30)
[2016-12-19] MEDS: TORSEMIDE 20 MG TABLET PO SCH ×2 (09:39→18:07)
[2016-12-19] MEDS: FLUTICASONE NASAL SPRAY 50 MCG/SPRY 120 SPRAY/16 GM NASL SCH ×2 (09:44→22:32)
[2016-12-19] MEDS: INSULIN GLARGINE,HUM.REC.ANLOG 300 UNIT/3 ML INSULN.PEN SUBCUT SCH (09:44)
[2016-12-19] MEDS ORDERED: TORSEMIDE 20 MG TABLET PO SCH (10:00)
[2016-12-19] MEDS ORDERED: INSULIN GLARGINE,HUM.REC.ANLOG 300 UNIT/3 ML INSULN.PEN SUBCUT SCH (10:38)
[2016-12-19] MEDS ORDERED: PHARMACY COMMUNICATION ORDER MC NR (10:45)
[2016-12-19] MEDS ORDERED: LINEZOLID 600 MG TABLET PO ONE (11:00)
--- NOTE | 2016-12-19 12:01 | PDOC PROGRESS REPORT ---
Subjective Progress Note for:: 12/19/16 Subjective:: Patient continues to improve gradually. She is sitting up in the bedside chair and eating. Pt is denying any chest arm or neck discomfort. Patient denying any PND, orthopnea. Patient denied any sustained palpitations, dizziness, syncope, near syncope. Patient denying any fever chills. Patient denying any other significant discomfort. Respiratory status has improved. Patient received increased dose of Norvasc today. I had a discussion with violin tutor , she felt that patient baseline renal function is around creatinine of 2-2.5, therefore she increased her Demadex dose. Patient is maintaining AV paced rhythm. Review of systems: Rest review of systems negative. Medications: Medications have been reviewed. Physical Exam Vital Signs: Temp Pulse Resp BP Pulse Ox 98.5 F 60 19 131/50 H 96 12/19/16 07:54 12/19/16 07:54 12/19/16 07:54 12/19/16 07:54 12/19/16 07:54 Intake & Output 12/18/16 12/19/16 12/20/16 06:59 06:59 06:59 Intake Total 1691 920 Output Total 1200 1350 Balance 491 -430 Weight 72.8 kg 74.2 kg 74.2 kg Exam: GENERAL: well-nourished and in no acute distress. Alert and oriented x3 HEAD: Atraumatic, normocephalic. EYES: Pupils equal round and reactive to light, extraocular movements intact, sclera anicteric, conjunctiva are normal. ENT: TMs normal, nares patent, oropharynx clear without exudates. Moist mucous membranes. No oral ulcerations or bleeding gums noted NECK: supple without lymphadenopathy. Trachea is central. No cervical or axillary lymphadenopathy noted. Carotids are 2+, JVD WNL LUNGS: Respiration seems nonlabored, no significant accessory muscle action noted. Breath sounds clear to auscultation bilaterally and equal noted. No wheezes rales or rhonchi noted. No significant dullness noted on percussion. CHEST: Palpation of the chest wall shows no significant chest wall tenderness. No other significant abnormalities noted. 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 ABDOMEN: Soft, no significant tenderness appreciated, normoactive bowel sounds. No guarding, no rebound. No rigidity noted . No masses appreciated. EXTREMITIES: Pedal pulses are 1-2+, no calf tenderness noted. No clubbing or cyanosis.trace to 1+ pedal edema noted NEUROLOGICAL: Focused neurological exam showed no significant neurologic deficit. Normal speech, no focal weakness appreciated. PSYCH: Normal mood, normal affect. Judgment and insight within normal limits. SKIN: No significant ecchymosis, rash, ulcerations or signs of pruritus noted. MUSCULOSKELETAL EXAM: No significant joint swelling noted. Results Laboratory Results: 12/19/16 04:45 12/19/16 04:45 12/17/16 12/19/16 12/19/16 04:03 04:45 04:45 WBC 3.8 L RBC 3.22 L Hgb 9.8 L Hct 28.8 L MCV 89 MCH 30.3 MCHC 33.9 RDW 15.6 H Plt Count 178 Seg Neutrophils % 63.6 Lymphocytes % 22.7 Monocytes % 9.4 Eosinophils % 3.4 Basophils % 0.9 Absolute Neutrophils 2.4 Absolute Lymphocytes 0.9 Absolute Monocytes 0.4 Absolute Eosinophils 0.1 Absolute Basophils 0.0 Sodium 135.4 L Potassium 3.5 L Chloride 85 L Carbon Dioxide 39 H Anion Gap 11 BUN 76 H Creatinine 2.32 H Est GFR ( Amer) 24 L Est GFR (Non-Af Amer) 20 L Glucose 150 H Calcium 10.4 H PTH Intact 60 12/17/16 20:00 Catheterized Urine Urine Culture - Final Enterococcus Faecalis(Group D) Impressions: Renal Ultrasound 12/15/16 00:00 IMPRESSION: 1. Left renal atrophy relative to the right kidney. No obstructive changes. 2. Bladder looks relatively unremarkable, fairly nondistended. Abdomen X-Ray 12/15/16 02:51 IMPRESSION: NO RADIOGRAPHIC EVIDENCE FOR ACUTE ABDOMINAL DISEASE. Chest X-Ray 12/18/16 12:18 IMPRESSION: 1. Cardiomegaly with mild pulmonary vascular prominence that shows improvement. 2. Minimal pleural effusions cannot be ruled out. 3. Left lower lobe consolidation or atelectasis cannot be ruled out. Assessment & Plan - Diagnosis (1) Acute on chronic congestive heart failure Qualifiers: Congestive heart failure type: combined Qualified Code(s): I50.43 - Acute on chronic combined systolic (congestive) and diastolic (congestive) heart failure Is this a current diagnosis for this admission?: Yes (2) COPD (chronic obstructive pulmonary disease) Qualifiers: Emphysema type: unspecified Is this a current diagnosis for this admission?: Yes (3) Cardiorenal syndrome with renal failure Is this a current diagnosis for this admission?: Yes (4) Chronic kidney disease, stage IV (severe) Is this a current diagnosis for this admission?: Yes (5) Mitral regurgitation Qualifiers: Cardiac valve disease etiology: nonrheumatic Qualified Code(s): I34.0 - Nonrheumatic mitral (valve) insufficiency Is this a current diagnosis for this admission?: Yes (6) Cardiac pacemaker in situ Is this a current diagnosis for this admission?: Yes - Notes Notes: Acute on chronic congestive heart failure: This is combination of LV systolic dysfunction, diastolic dysfunction, valvular heart disease. Patient has multiple comorbid diagnosis. Patient seems relatively compensated volume warren. COPD: Currently stable. Chronic kidney disease: Seems stage IV. Currently stable. Mitral regurgitation: Moderate to severe. LVESD acceptable. I did discuss possibility of mitral valve repair/replacement, patient is not keen to pursue this option at this point. However this should be considered as an outpatient. Aortic stenosis: Currently stable. Pacemaker in situ: Telemetry strips were reviewed. It shows normal functioning of the pacemaker. CODE STATUS : was discussed, patient remains DO NOT RESUSCITATE. Surrogate decision-maker unchanged. Multiple medical problems were addressed.More than 50 % of the time spent coordinating care, discussing management plans with involved caregivers. Management plans discussed with involved personnels. Medical decision making was of moderate to high complexity, patient's has multiple severe comorbidities. - Time Time with patient: Greater than 35 minutes Medications reviewed and adjusted accordingly: Yes
[2016-12-19] MEDS: ONDANSETRON HCL INJ/PF 4 MG/2 ML SDV IV PRN (13:03)
--- NOTE | 2016-12-19 14:14 | PDOC PROGRESS REPORT ---
Subjective Progress Note for:: 12/19/16 Subjective:: Patient has no new complaints. She still feels generally weak. Patient denies fever, chills, headache, new focal weakness, chest pain, shortness of breath, abdominal pain, nausea, vomiting, diarrhea, constipation. Physical Exam Vital Signs: Temp Pulse Resp BP Pulse Ox 98.5 F 60 19 145/55 H 96 12/19/16 11:37 12/19/16 11:37 12/19/16 11:37 12/19/16 11:37 12/19/16 11:37 Intake & Output 12/18/16 12/19/16 12/20/16 06:59 06:59 06:59 Intake Total 1691 920 474 Output Total 1200 1350 800 Balance 331 -467 -853 Weight 72.8 kg 74.2 kg 74.2 kg GENERAL: No acute distress HEENT: Conjunctiva clear, nonicteric, moist mucous membranes, no JVD, midline trachea RESPIRATORY: Clear to auscultation bilaterally, no wheezes, no rhonchi CARDIAC: Regular rate and rhythm, no murmurs/gallops/rubs ABDOMEN: Soft, nondistended, nontender, positive bowel sounds, no rebound, no guarding EXTREMETIES: No edema, cyanosis, clubbing NEUROLOGIC: Alert, oriented to person/place/time, CN's grossly intact, no focal deficits SKIN: No rash, wounds PSYCH: Normal mood, normal affect Results Laboratory Results: 12/19/16 04:45 12/19/16 04:45 12/19/16 12/19/16 04:45 04:45 WBC 3.8 L RBC 3.22 L Hgb 9.8 L Hct 28.8 L MCV 89 MCH 30.3 MCHC 33.9 RDW 15.6 H Plt Count 178 Seg Neutrophils % 63.6 Lymphocytes % 22.7 Monocytes % 9.4 Eosinophils % 3.4 Basophils % 0.9 Absolute Neutrophils 2.4 Absolute Lymphocytes 0.9 Absolute Monocytes 0.4 Absolute Eosinophils 0.1 Absolute Basophils 0.0 Sodium 135.4 L Potassium 3.5 L Chloride 85 L Carbon Dioxide 39 H Anion Gap 11 BUN 76 H Creatinine 2.32 H Est GFR ( Amer) 24 L Est GFR (Non-Af Amer) 20 L Glucose 150 H Calcium 10.4 H 12/17/16 20:00 Catheterized Urine Urine Culture - Final Enterococcus Faecalis(Group D) Impressions: Renal Ultrasound 12/15/16 00:00 IMPRESSION: 1. Left renal atrophy relative to the right kidney. No obstructive changes. 2. Bladder looks relatively unremarkable, fairly nondistended. Abdomen X-Ray 12/15/16 02:51 IMPRESSION: NO RADIOGRAPHIC EVIDENCE FOR ACUTE ABDOMINAL DISEASE. Chest X-Ray 12/18/16 12:18 IMPRESSION: 1. Cardiomegaly with mild pulmonary vascular prominence that shows improvement. 2. Minimal pleural effusions cannot be ruled out. 3. Left lower lobe consolidation or atelectasis cannot be ruled out. Assessment & Plan - Diagnosis (1) Acute kidney injury superimposed on chronic kidney disease Is this a current diagnosis for this admission?: YesPlan: Kidney function slightly worse today. Patient is possibly overdiuresis. Continue torsemide 40 mg twice daily. I discontinued Zaroxolyn secondary to overdiuresis. Nephrology following. (2) Acute on chronic congestive heart failure Qualifiers: Congestive heart failure type: combined Qualified Code(s): I50.43 - Acute on chronic combined systolic (congestive) and diastolic (congestive) heart failure Is this a current diagnosis for this admission?: YesPlan: Adjust diuretics as mentioned above. Continue Coreg. Cardiology following. (3) COPD (chronic obstructive pulmonary disease) Qualifiers: Emphysema type: unspecified Is this a current diagnosis for this admission?: Yes (4) Diabetes mellitus type I Qualifiers: Diabetes mellitus complication status: with unspecified complications Qualified Code(s): E10.8 - Type 1 diabetes mellitus with unspecified complications Is this a current diagnosis for this admission?: YesPlan: Continue scheduled 70/30 insulin. Sliding scale Humalog. (5) Generalized weakness Is this a current diagnosis for this admission?: YesPlan: Continue physical therapy. Patient will need home physical therapy upon discharge. (6) Hyperkalemia Is this a current diagnosis for this admission?: YesPlan: Resolved. (7) Hyponatremia Is this a current diagnosis for this admission?: Yes (8) UTI (urinary tract infection) Qualifiers: Urinary tract infection type: site unspecified Hematuria presence: without hematuria Qualified Code(s): N39.0 - Urinary tract infection, site not specified Is this a current diagnosis for this admission?: YesPlan: Discontinue doxycycline secondary to resistance. Start Zyvox 600 mg twice daily until 12/26/2016. (9) Hypercholesteremia Is this a current diagnosis for this admission?: Yes (10) Pacemaker Is this a current diagnosis for this admission?: Yes - Time Time Spent with patient: 35 or more minutes
[2016-12-19] MEDS: ANASTROZOLE 1 MG TABLET PO SCH (16:50)
[2016-12-19] MEDS ORDERED: (PENDING PHARMACY ID) (Potassium Chloride [K-Tab Er] 20 MEQ) PO SCH (18:00)
[2016-12-19] MEDS: HUM INSULIN NPH/REG INSULIN HM 100 UNIT/1 ML 3 ML SUBCUT SCH (18:01)
[2016-12-19] MEDS: POTASSIUM CHLORIDE 10 MEQ TABLET.SA PO SCH (18:03)
[2016-12-19] MEDS: GABAPENTIN 100 MG CAPSULE PO SCH (22:28)
[2016-12-19] MEDS: LINEZOLID 600 MG TABLET PO SCH (22:29)
[2016-12-20 06:37] LABS: ABSOLUTE EOSINOPHILS # (AUTO) 0.1 10^3/uL (0.0-0.6); ABSOLUTE LYMPHOCYTES (AUTO) 0.8 10^3/uL (0.5-4.7); ABSOLUTE MONOCYTES (AUTO) 0.3 10^3/uL (0.1-1.4); ABSOLUTE NEUT (AUTO) 1.6 10^3/uL (1.7-8.2); BASOPHILS % (AUTO) 1.3 % (0-2); EOSINOPHILS % (AUTO) 3.8 % (0-6); HEMATOCRIT 28.6 % (36.0-47.0); HEMOGLOBIN 9.6 g/dL (12.0-15.5); HGB HCT DIFFERENCE 0.2; LYMPHOCYTES % (AUTO) 29.1 % (13-45); MEAN CORPUSCULAR HGB CONC 33.6 g/dL (32.0-36.0); MEAN CORPUSCULAR VOLUME 89 fl (80-97); MONOCYTES % (AUTO) 9.7 % (3-13); RED CELL DISTRIBUTION WIDTH 15.6 % (11.5-14.0); SEGMENTED NEUTROPHILS % (AUTO) 56.1 % (42-78); WHITE BLOOD COUNT 2.9 10^3/uL (4.0-10.5)
[2016-12-20 06:50] LABS: ANION GAP 11 (5-19); BLOOD UREA NITROGEN 83 mg/dL (7-20); CALCIUM 10.6 mg/dL (8.4-10.2); CARBON DIOXIDE 39 mmol/L (22-30); CHLORIDE 86 mmol/L (98-107); CREATININE RESULT 2.34 mg/dL (0.52-1.25); GLUCOSE 178 mg/dL (75-110); POTASSIUM 3.8 mmol/L (3.6-5.0)
[2016-12-20] MEDS: HEPARIN SOD (PORCINE) 5,000 UNIT/ML 1 ML SYRINGE SUBCUT SCH ×3 (06:51→21:34)
[2016-12-20] MEDS: HUM INSULIN NPH/REG INSULIN HM 100 UNIT/1 ML 3 ML SUBCUT SCH ×2 (08:14→16:55)
[2016-12-20] MEDS: PAROXETINE HCL 20 MG TABLET PO SCH (08:14)
[2016-12-20] MEDS: INSULIN LISPRO 100 UNIT/ML 3 ML VIAL SUBCUT PRN ×2 (08:14→23:27)
[2016-12-20] MEDS: ONDANSETRON HCL INJ/PF 4 MG/2 ML SDV IV PRN (08:20)
[2016-12-20] MEDS: ISOSORBIDE MONONITRATE 30 MG TAB.ER.24H PO SCH (10:19)
[2016-12-20] MEDS: AMLODIPINE BESYLATE 10 MG TABLET PO SCH (10:19)
[2016-12-20] MEDS: OMEGA-3 ACID ETHYL ESTERS 1 GM CAPSULE PO SCH ×2 (10:20→17:01)
[2016-12-20] MEDS: MAGNESIUM OXIDE 400 MG TABLET PO SCH ×3 (10:20→17:00)
[2016-12-20] MEDS: ASCORBIC ACID 500 MG TABLET PO SCH (10:22)
[2016-12-20] MEDS: ASPIRIN 81 MG TABLET, ENT COATED PO SCH (10:23)
[2016-12-20] MEDS: FAMOTIDINE 20 MG TABLET PO SCH ×2 (10:23→21:35)
[2016-12-20] MEDS: LINEZOLID 600 MG TABLET PO SCH ×2 (10:23→21:35)
[2016-12-20] MEDS: ALLOPURINOL 100 MG TABLET PO SCH (10:23)
[2016-12-20] MEDS: POTASSIUM CHLORIDE 10 MEQ TABLET.SA PO SCH ×2 (10:24→17:02)
[2016-12-20] MEDS: CARVEDILOL 12.5 MG TABLET PO SCH ×2 (10:24→21:34)
[2016-12-20] MEDS: FENOFIBRATE NANOCRYSTALLIZED 145 MG TABLET PO SCH (10:24)
[2016-12-20] MEDS: TORSEMIDE 20 MG TABLET PO SCH ×2 (10:25→17:03)
[2016-12-20] MEDS: ANASTROZOLE 1 MG TABLET PO SCH (10:26)
[2016-12-20] MEDS: FLUTICASONE NASAL SPRAY 50 MCG/SPRY 120 SPRAY/16 GM NASL SCH ×2 (10:30→21:50)
--- NOTE | 2016-12-20 11:27 | PDOC PROGRESS REPORT ---
Subjective Progress Note for:: 12/20/16 Subjective:: Patient continues to improve gradually. She is sitting up in the bed. Patient is comfortable. Pt is denying any chest arm or neck discomfort. Patient denying any PND, orthopnea. Patient denied any sustained palpitations, dizziness, syncope, near syncope. Patient denying any fever chills. Patient denying any other significant discomfort. Respiratory status has improved. Patient received increased dose of Norvasc yesterday which she seems to have tolerating well. Patient renal functions and vital signs are noted to be stable. Patient is maintaining AV paced rhythm. Review of systems: Rest review of systems negative. Medications: Medications have been reviewed. Physical Exam Vital Signs: Temp Pulse Resp BP Pulse Ox 98.2 F 60 19 148/50 H 96 12/20/16 07:44 12/20/16 07:44 12/20/16 07:44 12/20/16 07:44 12/20/16 07:44 Intake & Output 12/19/16 12/20/16 12/21/16 06:59 06:59 06:59 Intake Total 920 951 Output Total 1350 1900 Balance -430 -949 Weight 74.2 kg 73.3 kg Exam: GENERAL: well-nourished and in no acute distress. Alert and oriented x3 HEAD: Atraumatic, normocephalic. EYES: Pupils equal round and reactive to light, extraocular movements intact, sclera anicteric, conjunctiva are normal. ENT: TMs normal, nares patent, oropharynx clear without exudates. Moist mucous membranes. No oral ulcerations or bleeding gums noted NECK: supple without lymphadenopathy. Trachea is central. No cervical or axillary lymphadenopathy noted. Carotids are 2+, JVD WNL LUNGS: Respiration seems nonlabored, no significant accessory muscle action noted. Breath sounds clear to auscultation bilaterally and equal noted. No wheezes rales or rhonchi noted. No significant dullness noted on percussion. Pacemaker is noted on the left side. CHEST: Palpation of the chest wall shows no significant chest wall tenderness. No other significant abnormalities noted. 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 ABDOMEN: Soft, no significant tenderness appreciated, normoactive bowel sounds. No guarding, no rebound. No rigidity noted . No masses appreciated. EXTREMITIES: Pedal pulses are 1-2+, no calf tenderness noted. No clubbing or cyanosis.trace to 1+ pedal edema noted NEUROLOGICAL: Focused neurological exam showed no significant neurologic deficit. Normal speech, no focal weakness appreciated. PSYCH: Normal mood, normal affect. Judgment and insight within normal limits. SKIN: No significant ecchymosis, rash, ulcerations or signs of pruritus noted. MUSCULOSKELETAL EXAM: No significant joint swelling noted. Results Laboratory Results: 12/20/16 06:12 12/20/16 06:12 12/20/16 12/20/16 06:12 06:12 WBC 2.9 L RBC 3.20 L Hgb 9.6 L Hct 28.6 L MCV 89 MCH 30.0 MCHC 33.6 RDW 15.6 H Plt Count 180 Seg Neutrophils % 56.1 Lymphocytes % 29.1 Monocytes % 9.7 Eosinophils % 3.8 Basophils % 1.3 Absolute Neutrophils 1.6 L Absolute Lymphocytes 0.8 Absolute Monocytes 0.3 Absolute Eosinophils 0.1 Absolute Basophils 0.0 Sodium 136.0 L Potassium 3.8 Chloride 86 L Carbon Dioxide 39 H Anion Gap 11 BUN 83 H Creatinine 2.34 H Est GFR ( Amer) 24 L Est GFR (Non-Af Amer) 20 L Glucose 178 H Calcium 10.6 H 12/17/16 20:00 Catheterized Urine Urine Culture - Final Enterococcus Faecalis(Group D) Impressions: Renal Ultrasound 12/15/16 00:00 IMPRESSION: 1. Left renal atrophy relative to the right kidney. No obstructive changes. 2. Bladder looks relatively unremarkable, fairly nondistended. Abdomen X-Ray 12/15/16 02:51 IMPRESSION: NO RADIOGRAPHIC EVIDENCE FOR ACUTE ABDOMINAL DISEASE. Chest X-Ray 12/18/16 12:18 IMPRESSION: 1. Cardiomegaly with mild pulmonary vascular prominence that shows improvement. 2. Minimal pleural effusions cannot be ruled out. 3. Left lower lobe consolidation or atelectasis cannot be ruled out. Assessment & Plan - Diagnosis (1) Acute on chronic congestive heart failure Qualifiers: Congestive heart failure type: combined Qualified Code(s): I50.43 - Acute on chronic combined systolic (congestive) and diastolic (congestive) heart failure Is this a current diagnosis for this admission?: Yes (2) COPD (chronic obstructive pulmonary disease) Qualifiers: Emphysema type: unspecified Is this a current diagnosis for this admission?: Yes (3) Cardiorenal syndrome with renal failure Is this a current diagnosis for this admission?: Yes (4) Chronic kidney disease, stage IV (severe) Is this a current diagnosis for this admission?: Yes (5) Mitral regurgitation Qualifiers: Cardiac valve disease etiology: nonrheumatic Qualified Code(s): I34.0 - Nonrheumatic mitral (valve) insufficiency Is this a current diagnosis for this admission?: Yes (6) Cardiac pacemaker in situ Is this a current diagnosis for this admission?: Yes - Notes Notes: Patient has remained stable from cardiac standpoint for last several days. Patient is tolerating current regimen. Patient kidney functions are stable. As regards mitral regurgitation, I feel that she will eventually need this to be replaced or repaired. Congestive heart failure seems compensated without any evidence of for fluid overload. Continue current dose of diuretic therapy. Continue current cardiac regimen. Patient would need regular and very close follow-up with facilities technician, regarding mitral valve status. It seems she has followed up with Dr. Chinchilla in the past and have recommended that she follows up with him. Patient's medical regimen was reviewed. I feel that she has reached stable cardiac status from cardiac standpoint point and is on a stable regimen. Will follow in a.m arm or evaluate renal function, CHF status and if stable will sign off. Patient has other ofcourse significant comorbid diagnosis but these are stable. - Time Time with patient: 15-25 minutes - CODE STATUS : was discussed, patient remains DO NOT RESUSCITATE. Surrogate decision-maker unchanged. Multiple medical problems were addressed.More than 50% of the time spent coordinating care, discussing management plans with involved caregivers. Management plans discussed with involved personnels. Medical decision making was of moderate to high complexity, patient's has multiple severe comorbidities.
[2016-12-20] MEDS: HYDROCODONE/ACETAMINOPHEN 10-325 MG TABLET PO PRN ×2 (12:16→21:37)
--- NOTE | 2016-12-20 16:27 | PDOC PROGRESS REPORT ---
Subjective Progress Note for:: 12/20/16 Subjective:: Patient is been stable. She continues to make good amount of urine with current dose of torsemide without metolazone. I probed further on her history as to why she doesn't seem to be diuresing with the same dose of diuretics at home. She admits that the last couple days prior to admission she has not been making much amount of urine. She also relates that sometimes when she travels a distance like going from [place] to [place], sometimes she could not empty her bladder 4 hours. She denies any chest pains nor shortness of breath currently. Physical Exam Vital Signs: Temp Pulse Resp BP Pulse Ox 97.4 F 60 19 134/57 H 98 12/20/16 12:27 12/20/16 12:27 12/20/16 12:27 12/20/16 12:27 12/20/16 12:27 Intake & Output 12/19/16 12/20/16 12/21/16 06:59 06:59 06:59 Intake Total 920 951 0 Output Total 1350 1900 600 Balance -430 -949 -600 Weight 74.2 kg 73.3 kg Exam: General appearance: PRESENT: no acute distress, cooperative, well-developed, well-nourished Head exam: PRESENT: atraumatic, normocephalic Eye exam: PRESENT: conjunctiva pale, PERRLA. ABSENT: scleral icterus Neck exam: ABSENT: JVD Respiratory exam: PRESENT: Diminished breath sounds. Unchanged bilateral basal crackles ABSENT: rhonchi, unlabored, wheezes Cardiovascular exam: PRESENT: Regular rate rhythm -+S1, +S2. Grade 3/6 systolic murmur GI/Abdominal exam: PRESENT: normal bowel sounds, soft. ABSENT: guarding, mass, tenderness Extremities exam: Trace bilateral lower extremity pitting edema Neurological exam: PRESENT: alert, awake, oriented to person, place and time. Skin exam: PRESENT: dry, warm, Results Laboratory Results: 12/20/16 06:12 12/20/16 06:12 12/20/16 12/20/16 06:12 06:12 WBC 2.9 L RBC 3.20 L Hgb 9.6 L Hct 28.6 L MCV 89 MCH 30.0 MCHC 33.6 RDW 15.6 H Plt Count 180 Seg Neutrophils % 56.1 Lymphocytes % 29.1 Monocytes % 9.7 Eosinophils % 3.8 Basophils % 1.3 Absolute Neutrophils 1.6 L Absolute Lymphocytes 0.8 Absolute Monocytes 0.3 Absolute Eosinophils 0.1 Absolute Basophils 0.0 Sodium 136.0 L Potassium 3.8 Chloride 86 L Carbon Dioxide 39 H Anion Gap 11 BUN 83 H Creatinine 2.34 H Est GFR ( Amer) 24 L Est GFR (Non-Af Amer) 20 L Glucose 178 H Calcium 10.6 H Impressions: Renal Ultrasound 12/15/16 00:00 IMPRESSION: 1. Left renal atrophy relative to the right kidney. No obstructive changes. 2. Bladder looks relatively unremarkable, fairly nondistended. Abdomen X-Ray 12/15/16 02:51 IMPRESSION: NO RADIOGRAPHIC EVIDENCE FOR ACUTE ABDOMINAL DISEASE. Chest X-Ray 12/18/16 12:18 IMPRESSION: 1. Cardiomegaly with mild pulmonary vascular prominence that shows improvement. 2. Minimal pleural effusions cannot be ruled out. 3. Left lower lobe consolidation or atelectasis cannot be ruled out. Assessment & Plan - Diagnosis (1) Acute kidney injury superimposed on chronic kidney disease Is this a current diagnosis for this admission?: YesPlan: Patient is in chronic prerenal state as evident by urine sodium less than 5. This is consistent again with acute exacerbation for cardiorenal syndrome. Patient seems to have had an acute pulmonary edema. Her duplex of the renal arteries revealed no hemodynamically significant renal artery stenosis. Currently on torsemide at 40 mg twice a day. We'll monitor kidney function, electrolytes and urine output. Closely from this point. Avoid any other further nephrotoxic agents. Patient's creatinine increased today a little bit. Patient's baseline kidney function is actually with creatinine ranging from 2-3. I am not worried with this increase in creatinine, I think this might actually close to her baseline from history. I will continue the same dose of torsemide for now. I would rather see the patient on slightly dry side and not congested with comfortable breathing rather than go with the creatinine and decrease the diuretics. We will monitor the patient very carefully while here so we can determine the dose of her diuretics that she can go home comfortably with to prevent another exacerbation. We will remove the Ramon catheter today. I will order for a bladder scan to determine her postvoid residual every shift. If the PVRs greater than the 100 mL, we will do straight catheterization. Discussed this with her nurse today. I talked to the patient regarding possibility of urinary retention and the possible treatment if either indwelling Ramon catheter or intermittent catheterization if she indeed is having urinary retention. Urinary retention we will explain why she is not diuresing with the same dose of diuretics that she is on here in the hospital which seems to work. (2) Cardiorenal syndrome with renal failure Is this a current diagnosis for this admission?: Yes (3) Chronic kidney disease, stage IV (severe) Is this a current diagnosis for this admission?: Yes (4) Acute respiratory failure with hypoxia Is this a current diagnosis for this admission?: YesPlan: Resolved. (5) Acute on chronic congestive heart failure Qualifiers: Congestive heart failure type: combined Qualified Code(s): I50.43 - Acute on chronic combined systolic (congestive) and diastolic (congestive) heart failure Is this a current diagnosis for this admission?: Yes (6) Diabetes mellitus type 2 Is this a current diagnosis for this admission?: Yes (7) Anemia in chronic kidney disease Is this a current diagnosis for this admission?: Yes (8) Hypercalcemia Is this a current diagnosis for this admission?: YesPlan: Stable and mild. (9) Hypertension Qualifiers: Hypertension type: essential hypertension Qualified Code(s): I10 - Essential (primary) hypertension Is this a current diagnosis for this admission?: Yes (10) Hyponatremia Is this a current diagnosis for this admission?: YesPlan: Improved. - Time Time with patient: 15-25 minutes
--- NOTE | 2016-12-20 16:59 | PDOC PROGRESS REPORT ---
Subjective Progress Note for:: 12/20/16 Subjective:: Patient has no new complaints. She is gradually improving from a physical standpoint. Patient denies fever, chills, headache, new focal weakness, chest pain, shortness of breath, abdominal pain, nausea, vomiting, diarrhea, constipation. Physical Exam Vital Signs: Temp Pulse Resp BP Pulse Ox 97.4 F 60 19 134/57 H 98 12/20/16 12:27 12/20/16 12:27 12/20/16 12:27 12/20/16 12:27 12/20/16 12:27 Intake & Output 12/19/16 12/20/16 12/21/16 06:59 06:59 06:59 Intake Total 920 951 0 Output Total 1350 1900 600 Balance -430 -949 -600 Weight 74.2 kg 73.3 kg GENERAL: No acute distress, frail, elderly HEENT: Conjunctiva clear, nonicteric, moist mucous membranes, no JVD, midline trachea RESPIRATORY: Clear to auscultation bilaterally, no wheezes, no rhonchi CARDIAC: Regular rate and rhythm, no murmurs/gallops/rubs ABDOMEN: Soft, nondistended, nontender, positive bowel sounds, no rebound, no guarding EXTREMETIES: No edema, cyanosis, clubbing NEUROLOGIC: Alert, oriented to person/place/time, CN's grossly intact, no focal deficits SKIN: No rash, wounds PSYCH: Normal mood, normal affect Results Laboratory Results: 12/20/16 06:12 12/20/16 06:12 12/20/16 12/20/16 06:12 06:12 WBC 2.9 L RBC 3.20 L Hgb 9.6 L Hct 28.6 L MCV 89 MCH 30.0 MCHC 33.6 RDW 15.6 H Plt Count 180 Seg Neutrophils % 56.1 Lymphocytes % 29.1 Monocytes % 9.7 Eosinophils % 3.8 Basophils % 1.3 Absolute Neutrophils 1.6 L Absolute Lymphocytes 0.8 Absolute Monocytes 0.3 Absolute Eosinophils 0.1 Absolute Basophils 0.0 Sodium 136.0 L Potassium 3.8 Chloride 86 L Carbon Dioxide 39 H Anion Gap 11 BUN 83 H Creatinine 2.34 H Est GFR ( Amer) 24 L Est GFR (Non-Af Amer) 20 L Glucose 178 H Calcium 10.6 H Impressions: Renal Ultrasound 12/15/16 00:00 IMPRESSION: 1. Left renal atrophy relative to the right kidney. No obstructive changes. 2. Bladder looks relatively unremarkable, fairly nondistended. Abdomen X-Ray 12/15/16 02:51 IMPRESSION: NO RADIOGRAPHIC EVIDENCE FOR ACUTE ABDOMINAL DISEASE. Chest X-Ray 12/18/16 12:18 IMPRESSION: 1. Cardiomegaly with mild pulmonary vascular prominence that shows improvement. 2. Minimal pleural effusions cannot be ruled out. 3. Left lower lobe consolidation or atelectasis cannot be ruled out. Assessment & Plan - Diagnosis (1) Acute kidney injury superimposed on chronic kidney disease Is this a current diagnosis for this admission?: YesPlan: Continue torsemide 40 mg twice daily. Nephrology following and feels that creatinine is at baseline. (2) Acute on chronic congestive heart failure Qualifiers: Congestive heart failure type: combined Qualified Code(s): I50.43 - Acute on chronic combined systolic (congestive) and diastolic (congestive) heart failure Is this a current diagnosis for this admission?: YesPlan: Adjust diuretics as mentioned above. Continue Coreg. Cardiology following. (3) COPD (chronic obstructive pulmonary disease) Qualifiers: Emphysema type: unspecified Is this a current diagnosis for this admission?: Yes (4) Diabetes mellitus type I Qualifiers: Diabetes mellitus complication status: with unspecified complications Qualified Code(s): E10.8 - Type 1 diabetes mellitus with unspecified complications Is this a current diagnosis for this admission?: YesPlan: Continue scheduled 70/30 insulin. Sliding scale Humalog. (5) Generalized weakness Is this a current diagnosis for this admission?: YesPlan: Continue physical therapy. Patient will need home physical therapy upon discharge. (6) Hyperkalemia Is this a current diagnosis for this admission?: YesPlan: Resolved. (7) Hyponatremia Is this a current diagnosis for this admission?: YesPlan: Resolved. (8) UTI (urinary tract infection) Qualifiers: Urinary tract infection type: site unspecified Hematuria presence: without hematuria Qualified Code(s): N39.0 - Urinary tract infection, site not specified Is this a current diagnosis for this admission?: YesPlan: Zyvox 600 mg twice daily until 12/26/2016. (9) Hypercholesteremia Is this a current diagnosis for this admission?: YesPlan: Discontinued Lipitor as family states patient is allergic to all statins except Crestor (not on formulary). Resume Crestor after discharge. (10) Pacemaker Is this a current diagnosis for this admission?: Yes (11) Metatarsalgia of left foot Is this a current diagnosis for this admission?: YesPlan: Post-op shoe while weight bearing. - Time Time Spent with patient: 35 or more minutes Anticipated discharge: Home with Homehealth Within: within 72 hours
[2016-12-20] MEDS: GABAPENTIN 100 MG CAPSULE PO SCH (21:34)
[2016-12-21 04:42] LABS: ABSOLUTE EOSINOPHILS # (AUTO) 0.1 10^3/uL (0.0-0.6); ABSOLUTE LYMPHOCYTES (AUTO) 0.7 10^3/uL (0.5-4.7); ABSOLUTE MONOCYTES (AUTO) 0.2 10^3/uL (0.1-1.4); ABSOLUTE NEUT (AUTO) 1.6 10^3/uL (1.7-8.2); BASOPHILS % (AUTO) 1.2 % (0-2); EOSINOPHILS % (AUTO) 4.3 % (0-6); HEMATOCRIT 28.9 % (36.0-47.0); HEMOGLOBIN 9.7 g/dL (12.0-15.5); HGB HCT DIFFERENCE 0.2; LYMPHOCYTES % (AUTO) 26.7 % (13-45); MEAN CORPUSCULAR HGB CONC 33.6 g/dL (32.0-36.0); MEAN CORPUSCULAR VOLUME 89 fl (80-97); MONOCYTES % (AUTO) 8.6 % (3-13); RED BLOOD COUNT 3.24 10^6/uL (3.72-5.28); RED CELL DISTRIBUTION WIDTH 15.4 % (11.5-14.0); SEGMENTED NEUTROPHILS % (AUTO) 59.2 % (42-78); WHITE BLOOD COUNT 2.7 10^3/uL (4.0-10.5)
[2016-12-21 05:09] LABS: ANION GAP 12 (5-19); BLOOD UREA NITROGEN 78 mg/dL (7-20); CALCIUM 10.6 mg/dL (8.4-10.2); CARBON DIOXIDE 36 mmol/L (22-30); CHLORIDE 88 mmol/L (98-107); CREATININE RESULT 2.02 mg/dL (0.52-1.25); GLUCOSE 164 mg/dL (75-110); POTASSIUM 3.7 mmol/L (3.6-5.0); SODIUM 135.6 mmol/L (137-145)
[2016-12-21] MEDS: HYDROCODONE/ACETAMINOPHEN 10-325 MG TABLET PO PRN ×2 (05:22→17:29)
[2016-12-21] MEDS: HEPARIN SOD (PORCINE) 5,000 UNIT/ML 1 ML SYRINGE SUBCUT SCH ×3 (05:22→22:09)
[2016-12-21] MEDS: SIMETHICONE 80 MG TAB.CHEW PO PRN (05:22)
[2016-12-21] MEDS: HUM INSULIN NPH/REG INSULIN HM 100 UNIT/1 ML 3 ML SUBCUT SCH ×2 (08:21→17:30)
[2016-12-21] MEDS: INSULIN LISPRO 100 UNIT/ML 3 ML VIAL SUBCUT PRN ×3 (08:22→22:08)
[2016-12-21] MEDS: PAROXETINE HCL 20 MG TABLET PO SCH (08:23)
[2016-12-21] MEDS: CARVEDILOL 12.5 MG TABLET PO SCH ×2 (10:47→22:12)
[2016-12-21] MEDS: ASCORBIC ACID 500 MG TABLET PO SCH (10:48)
[2016-12-21] MEDS: FAMOTIDINE 20 MG TABLET PO SCH ×2 (10:48→22:10)
[2016-12-21] MEDS: ASPIRIN 81 MG TABLET, ENT COATED PO SCH (10:48)
[2016-12-21] MEDS: POTASSIUM CHLORIDE 10 MEQ TABLET.SA PO SCH ×2 (10:48→17:29)
[2016-12-21] MEDS: ALLOPURINOL 100 MG TABLET PO SCH (10:48)
[2016-12-21] MEDS: OMEGA-3 ACID ETHYL ESTERS 1 GM CAPSULE PO SCH ×2 (10:49→17:28)
[2016-12-21] MEDS: FENOFIBRATE NANOCRYSTALLIZED 145 MG TABLET PO SCH (10:49)
[2016-12-21] MEDS: MAGNESIUM OXIDE 400 MG TABLET PO SCH ×3 (10:49→17:28)
[2016-12-21] MEDS: AMLODIPINE BESYLATE 10 MG TABLET PO SCH (10:50)
[2016-12-21] MEDS: ISOSORBIDE MONONITRATE 30 MG TAB.ER.24H PO SCH (10:50)
[2016-12-21] MEDS: FLUTICASONE NASAL SPRAY 50 MCG/SPRY 120 SPRAY/16 GM NASL SCH ×2 (10:51→22:15)
[2016-12-21] MEDS: TORSEMIDE 20 MG TABLET PO SCH ×2 (10:51→17:29)
[2016-12-21] MEDS: ANASTROZOLE 1 MG TABLET PO SCH (10:51)
[2016-12-21] MEDS: ONDANSETRON HCL INJ/PF 4 MG/2 ML SDV IV PRN (11:52)
--- NOTE | 2016-12-21 11:59 | PDOC PROGRESS REPORT ---
Subjective Progress Note for:: 12/21/16 Subjective:: Patient continues to improve gradually and feels like she is ready to go home. She is sitting up in the bed. Patient is comfortable. Pt is denying any chest arm or neck discomfort. Patient denying any PND, orthopnea. Patient denied any sustained palpitations, dizziness, syncope, near syncope. Patient denying any fever chills. Patient denying any other significant discomfort. Respiratory status has improved. Patient has been on a stable medical regimen. Lab work has been stable. Patient renal functions and vital signs are noted to be stable. Patient is maintaining AV paced rhythm. Review of systems: Rest review of systems negative. Medications: Medications have been reviewed. Physical Exam Vital Signs: Temp Pulse Resp BP Pulse Ox 97.6 F 60 22 H 140/61 H 97 12/21/16 07:35 12/21/16 07:35 12/21/16 07:35 12/21/16 07:35 12/21/16 07:35 Intake & Output 12/20/16 12/21/16 12/22/16 06:59 06:59 06:59 Intake Total 951 1179 Output Total 1900 2950 Balance -949 -1771 Weight 73.3 kg 72.3 kg Exam: GENERAL: well-nourished and in no acute distress. Alert and oriented x3 HEAD: Atraumatic, normocephalic. EYES: Pupils equal round and reactive to light, extraocular movements intact, sclera anicteric, conjunctiva are normal. ENT: TMs normal, nares patent, oropharynx clear without exudates. Moist mucous membranes. No oral ulcerations or bleeding gums noted NECK: supple without lymphadenopathy. Trachea is central. No cervical or axillary lymphadenopathy noted. Carotids are 2+, JVD WNL LUNGS: Respiration seems nonlabored, no significant accessory muscle action noted. Breath sounds clear to auscultation bilaterally and equal noted. No wheezes rales or rhonchi noted. No significant dullness noted on percussion. CHEST: Palpation of the chest wall shows no significant chest wall tenderness. No other significant abnormalities noted. Pacemaker noted on the left side chest. HEART: [place] [employer]ER, No PSH, 2-3/6 [place] aortic area, 1/6 perdue systolic murmur mitral area, no rubs, no gallops. ABDOMEN: Soft, no significant tenderness appreciated, normoactive bowel sounds. No guarding, no rebound. No rigidity noted . No masses appreciated. EXTREMITIES: Pedal pulses are 1-2+, no calf tenderness noted. No clubbing or cyanosis.trace to 1+ pedal edema noted NEUROLOGICAL: Focused neurological exam showed no significant neurologic deficit. Normal speech, no focal weakness appreciated. PSYCH: Normal mood, normal affect. Judgment and insight within normal limits. SKIN: No significant ecchymosis, rash, ulcerations or signs of pruritus noted. MUSCULOSKELETAL EXAM: No significant joint swelling noted. Results Laboratory Results: 12/21/16 04:19 12/21/16 04:19 12/21/16 12/21/16 04:19 04:19 WBC 2.7 L RBC 3.24 L Hgb 9.7 L Hct 28.9 L MCV 89 MCH 30.0 MCHC 33.6 RDW 15.4 H Plt Count 174 Seg Neutrophils % 59.2 Lymphocytes % 26.7 Monocytes % 8.6 Eosinophils % 4.3 Basophils % 1.2 Absolute Neutrophils 1.6 L Absolute Lymphocytes 0.7 Absolute Monocytes 0.2 Absolute Eosinophils 0.1 Absolute Basophils 0.0 Sodium 135.6 L Potassium 3.7 Chloride 88 L Carbon Dioxide 36 H Anion Gap 12 BUN 78 H Creatinine 2.02 H Est GFR ( Amer) 29 L Est GFR (Non-Af Amer) 24 L Glucose 164 H Calcium 10.6 H Impressions: Renal Ultrasound 12/15/16 00:00 IMPRESSION: 1. Left renal atrophy relative to the right kidney. No obstructive changes. 2. Bladder looks relatively unremarkable, fairly nondistended. Abdomen X-Ray 12/15/16 02:51 IMPRESSION: NO RADIOGRAPHIC EVIDENCE FOR ACUTE ABDOMINAL DISEASE. Chest X-Ray 12/18/16 12:18 IMPRESSION: 1. Cardiomegaly with mild pulmonary vascular prominence that shows improvement. 2. Minimal pleural effusions cannot be ruled out. 3. Left lower lobe consolidation or atelectasis cannot be ruled out. Assessment & Plan - Diagnosis (1) Acute on chronic congestive heart failure Qualifiers: Congestive heart failure type: combined Qualified Code(s): I50.43 - Acute on chronic combined systolic (congestive) and diastolic (congestive) heart failure Is this a current diagnosis for this admission?: Yes (2) COPD (chronic obstructive pulmonary disease) Qualifiers: Emphysema type: unspecified Is this a current diagnosis for this admission?: Yes (3) Cardiorenal syndrome with renal failure Is this a current diagnosis for this admission?: Yes (4) Chronic kidney disease, stage IV (severe) Is this a current diagnosis for this admission?: Yes (5) Mitral regurgitation Qualifiers: Cardiac valve disease etiology: nonrheumatic Qualified Code(s): I34.0 - Nonrheumatic mitral (valve) insufficiency Is this a current diagnosis for this admission?: Yes (6) Cardiac pacemaker in situ Is this a current diagnosis for this admission?: Yes - Notes Notes: Patient has remained stable from cardiac standpoint for last several days. Patient is tolerating current regimen. Patient kidney functions are stable. As regards mitral regurgitation, I feel that she will eventually need this to be replaced or repaired. Congestive heart failure seems compensated without any evidence of for fluid overload. Continue current dose of diuretic therapy. Continue current cardiac regimen. Patient would need regular follow-up with public health registrar. It seems she has followed up with Dr. Chinchilla in the past and have recommended that she follows up with him. Patient's medical regimen was reviewed. I feel that she has reached stable cardiac status from cardiac standpoint point and is on a stable regimen. Renal functions are noted to be very stable and seems to be at baseline. Patient now has been on a stable medical regimen for at least 48 hours. Will therefore sign off. Please reconsult if needed. - Time Time with patient: 15-25 minutes - CODE STATUS : was discussed, patient remains DO NOT RESUSCITATE. Surrogate decision-maker unchanged. Multiple medical problems were addressed.More than 50% of the time spent coordinating care, discussing management plans with involved caregivers. Management plans discussed with involved personnels. Medical decision making was of moderate to high complexity, patient's has multiple severe comorbidities.
--- NOTE | 2016-12-21 15:13 | PDOC PROGRESS REPORT ---
Subjective Progress Note for:: 12/21/16 Subjective:: Patient has no new complaints. She is gradually improving from a physical standpoint. She has had no issues voiding since Ramon catheter removal on 12/20. Postvoid residuals have been minimal. Patient denies fever, chills, headache, new focal weakness, chest pain, shortness of breath, abdominal pain, nausea, vomiting, diarrhea, constipation. Physical Exam Vital Signs: Temp Pulse Resp BP Pulse Ox 97.3 F 60 20 161/57 H 96 12/21/16 11:19 12/21/16 11:19 12/21/16 11:19 12/21/16 11:19 12/21/16 11:19 Intake & Output 12/20/16 12/21/16 12/22/16 06:59 06:59 06:59 Intake Total 951 1179 474 Output Total 1909 0840 400 Balance -350 -0333 74 Weight 73.3 kg 72.3 kg GENERAL: No acute distress, frail, elderly HEENT: Conjunctiva clear, nonicteric, moist mucous membranes, no JVD, midline trachea RESPIRATORY: Clear to auscultation bilaterally, no wheezes, no rhonchi CARDIAC: Regular rate and rhythm, no murmurs/gallops/rubs ABDOMEN: Soft, nondistended, nontender, positive bowel sounds, no rebound, no guarding EXTREMETIES: No edema, cyanosis, clubbing NEUROLOGIC: Alert, oriented to person/place/time, CN's grossly intact, no focal deficits SKIN: No rash, wounds PSYCH: Normal mood, normal affect Results Laboratory Results: 12/21/16 04:19 12/21/16 04:19 12/21/16 12/21/16 04:19 04:19 WBC 2.7 L RBC 3.24 L Hgb 9.7 L Hct 28.9 L MCV 89 MCH 30.0 MCHC 33.6 RDW 15.4 H Plt Count 174 Seg Neutrophils % 59.2 Lymphocytes % 26.7 Monocytes % 8.6 Eosinophils % 4.3 Basophils % 1.2 Absolute Neutrophils 1.6 L Absolute Lymphocytes 0.7 Absolute Monocytes 0.2 Absolute Eosinophils 0.1 Absolute Basophils 0.0 Sodium 135.6 L Potassium 3.7 Chloride 88 L Carbon Dioxide 36 H Anion Gap 12 BUN 78 H Creatinine 2.02 H Est GFR ( Amer) 29 L Est GFR (Non-Af Amer) 24 L Glucose 164 H Calcium 10.6 H Impressions: Renal Ultrasound 12/15/16 00:00 IMPRESSION: 1. Left renal atrophy relative to the right kidney. No obstructive changes. 2. Bladder looks relatively unremarkable, fairly nondistended. Abdomen X-Ray 12/15/16 02:51 IMPRESSION: NO RADIOGRAPHIC EVIDENCE FOR ACUTE ABDOMINAL DISEASE. Chest X-Ray 12/18/16 12:18 IMPRESSION: 1. Cardiomegaly with mild pulmonary vascular prominence that shows improvement. 2. Minimal pleural effusions cannot be ruled out. 3. Left lower lobe consolidation or atelectasis cannot be ruled out. Assessment & Plan - Diagnosis (1) Acute kidney injury superimposed on chronic kidney disease Is this a current diagnosis for this admission?: YesPlan: Continue torsemide 40 mg twice daily. Nephrology following and feels that creatinine is at baseline. (2) Acute on chronic congestive heart failure Qualifiers: Congestive heart failure type: combined Qualified Code(s): I50.43 - Acute on chronic combined systolic (congestive) and diastolic (congestive) heart failure Is this a current diagnosis for this admission?: YesPlan: Adjust diuretics as mentioned above. Continue Coreg. Cardiology following. Patient to follow-up with Dr. Chinchilla as an outpatient. Dietitian to evaluate as I think patient's outpatient dietary habits have greatly impacted her hospital readmissions. It sounds as though her fluid intake is not consistent/restricted, her sodium intake is not consistent/ restricted, her carbohydrate intake is not consistent/restricted. (3) COPD (chronic obstructive pulmonary disease) Qualifiers: Emphysema type: unspecified Is this a current diagnosis for this admission?: Yes (4) Diabetes mellitus type I Qualifiers: Diabetes mellitus complication status: with unspecified complications Qualified Code(s): E10.8 - Type 1 diabetes mellitus with unspecified complications Is this a current diagnosis for this admission?: YesPlan: Increase 7030 insulin to 30 units every morning and 20 units every afternoon. Sliding scale Humalog. (5) Generalized weakness Is this a current diagnosis for this admission?: YesPlan: Continue physical therapy. Patient will need home physical therapy upon discharge. (6) Hyperkalemia Is this a current diagnosis for this admission?: Yes (7) Hyponatremia Is this a current diagnosis for this admission?: Yes (8) UTI (urinary tract infection) Qualifiers: Urinary tract infection type: site unspecified Hematuria presence: without hematuria Qualified Code(s): N39.0 - Urinary tract infection, site not specified Is this a current diagnosis for this admission?: YesPlan: Discontinue Zyvox secondary to developing leukopenia since initiation. Ramon catheter discontinued on 12/20/2016. (9) Hypercholesteremia Is this a current diagnosis for this admission?: Yes (10) Pacemaker Is this a current diagnosis for this admission?: Yes (11) Metatarsalgia of left foot Is this a current diagnosis for this admission?: YesPlan: Post-op shoe while weight bearing. - Time Time Spent with patient: 35 or more minutes Anticipated discharge: Home with Homehealth Within: within 48 hours
[2016-12-21] MEDS: GABAPENTIN 100 MG CAPSULE PO SCH (22:11)
[2016-12-22 05:04] LABS: ABSOLUTE BASOPHILS # (AUTO) 0.1 10^3/uL (0.0-0.2); ABSOLUTE EOSINOPHILS # (AUTO) 0.1 10^3/uL (0.0-0.6); ABSOLUTE LYMPHOCYTES (AUTO) 0.8 10^3/uL (0.5-4.7); ABSOLUTE MONOCYTES (AUTO) 0.2 10^3/uL (0.1-1.4); ABSOLUTE NEUT (AUTO) 1.6 10^3/uL (1.7-8.2); BASOPHILS % (AUTO) 2.4 % (0-2); EOSINOPHILS % (AUTO) 4.2 % (0-6); HEMATOCRIT 30.3 % (36.0-47.0); HEMOGLOBIN 10.1 g/dL (12.0-15.5); LYMPHOCYTES % (AUTO) 27.8 % (13-45); MEAN CORPUSCULAR HEMOGLOBIN 30.3 pg (27.0-33.4); MEAN CORPUSCULAR HGB CONC 33.3 g/dL (32.0-36.0); MEAN CORPUSCULAR VOLUME 91 fl (80-97); MONOCYTES % (AUTO) 8.5 % (3-13); RED BLOOD COUNT 3.33 10^6/uL (3.72-5.28); RED CELL DISTRIBUTION WIDTH 15.7 % (11.5-14.0); SEGMENTED NEUTROPHILS % (AUTO) 57.1 % (42-78); WHITE BLOOD COUNT 2.7 10^3/uL (4.0-10.5)
[2016-12-22 05:24] LABS: ANION GAP 12 (5-19); BLOOD UREA NITROGEN 70 mg/dL (7-20); CALCIUM 11.1 mg/dL (8.4-10.2); CARBON DIOXIDE 37 mmol/L (22-30); CHLORIDE 90 mmol/L (98-107); GLUCOSE 109 mg/dL (75-110); POTASSIUM 3.9 mmol/L (3.6-5.0); SODIUM 138.8 mmol/L (137-145)
[2016-12-22] MEDS: HEPARIN SOD (PORCINE) 5,000 UNIT/ML 1 ML SYRINGE SUBCUT SCH ×3 (06:34→22:30)
[2016-12-22] MEDS: HUM INSULIN NPH/REG INSULIN HM 100 UNIT/1 ML 3 ML SUBCUT SCH ×2 (08:25→17:55)
[2016-12-22] MEDS: HYDROCODONE/ACETAMINOPHEN 10-325 MG TABLET PO PRN ×3 (08:26→22:41)
[2016-12-22] MEDS: PAROXETINE HCL 20 MG TABLET PO SCH (08:26)
[2016-12-22] MEDS: ISOSORBIDE MONONITRATE 30 MG TAB.ER.24H PO SCH (11:08)
[2016-12-22] MEDS: CARVEDILOL 12.5 MG TABLET PO SCH ×2 (11:08→22:30)
[2016-12-22] MEDS: FAMOTIDINE 20 MG TABLET PO SCH ×2 (11:09→22:30)
[2016-12-22] MEDS: FENOFIBRATE NANOCRYSTALLIZED 145 MG TABLET PO SCH (11:09)
[2016-12-22] MEDS: ASPIRIN 81 MG TABLET, ENT COATED PO SCH (11:09)
[2016-12-22] MEDS: ASCORBIC ACID 500 MG TABLET PO SCH (11:09)
[2016-12-22] MEDS: AMLODIPINE BESYLATE 10 MG TABLET PO SCH (11:09)
[2016-12-22] MEDS: OMEGA-3 ACID ETHYL ESTERS 1 GM CAPSULE PO SCH ×2 (11:09→17:55)
[2016-12-22] MEDS: POTASSIUM CHLORIDE 10 MEQ TABLET.SA PO SCH ×2 (11:10→17:54)
[2016-12-22] MEDS: MAGNESIUM OXIDE 400 MG TABLET PO SCH ×3 (11:10→17:54)
[2016-12-22] MEDS: ALLOPURINOL 100 MG TABLET PO SCH (11:10)
[2016-12-22] MEDS: TORSEMIDE 20 MG TABLET PO SCH ×2 (11:11→17:58)
[2016-12-22] MEDS: ANASTROZOLE 1 MG TABLET PO SCH (11:11)
[2016-12-22] MEDS: FLUTICASONE NASAL SPRAY 50 MCG/SPRY 120 SPRAY/16 GM NASL SCH ×2 (11:12→22:34)
[2016-12-22] MEDS: SIMETHICONE 80 MG TAB.CHEW PO PRN (11:19)
[2016-12-22] MEDS ORDERED: GABAPENTIN 100 MG CAPSULE PO SCH (11:27)
--- NOTE | 2016-12-22 12:23 | PDOC PROGRESS REPORT ---
Subjective Progress Note for:: 12/22/16 Subjective:: Patient has no new complaints. She is gradually improving from a physical standpoint. She has had no issues voiding since Ramon catheter removal on 12/20. Postvoid residuals have been minimal. Patient denies fever, chills, headache, new focal weakness, chest pain, shortness of breath, abdominal pain, nausea, vomiting, diarrhea, constipation. Physical Exam Vital Signs: Temp Pulse Resp BP Pulse Ox 98.0 F 59 L 18 150/53 H 95 12/22/16 07:26 12/22/16 07:26 12/22/16 07:26 12/22/16 07:26 12/22/16 07:26 Intake & Output 12/21/16 12/22/16 12/23/16 06:59 06:59 06:59 Intake Total 1179 960 Output Total 2950 2950 Balance -1770 Weight 72.3 kg 70.8 kg GENERAL: No acute distress, frail, elderly HEENT: Conjunctiva clear, nonicteric, moist mucous membranes, no JVD, midline trachea RESPIRATORY: Clear to auscultation bilaterally, no wheezes, no rhonchi CARDIAC: Regular rate and rhythm, no murmurs/gallops/rubs ABDOMEN: Soft, nondistended, nontender, positive bowel sounds, no rebound, no guarding EXTREMETIES: No edema, cyanosis, clubbing NEUROLOGIC: Alert, oriented to person/place/time, CN's grossly intact, no focal deficits SKIN: No rash, wounds PSYCH: Normal mood, normal affect Results Laboratory Results: 12/22/16 03:48 12/22/16 03:48 12/22/16 12/22/16 03:48 03:48 WBC 2.7 L RBC 3.33 L Hgb 10.1 L Hct 30.3 L MCV 91 MCH 30.3 MCHC 33.3 RDW 15.7 H Plt Count 183 Seg Neutrophils % 57.1 Lymphocytes % 27.8 Monocytes % 8.5 Eosinophils % 4.2 Basophils % 2.4 H Absolute Neutrophils 1.6 L Absolute Lymphocytes 0.8 Absolute Monocytes 0.2 Absolute Eosinophils 0.1 Absolute Basophils 0.1 Sodium 138.8 Potassium 3.9 Chloride 90 L Carbon Dioxide 37 H Anion Gap 12 BUN 70 H Creatinine 1.80 H Est GFR ( Amer) 33 L Est GFR (Non-Af Amer) 27 L Glucose 109 Calcium 11.1 H Impressions: Renal Ultrasound 12/15/16 00:00 IMPRESSION: 1. Left renal atrophy relative to the right kidney. No obstructive changes. 2. Bladder looks relatively unremarkable, fairly nondistended. Abdomen X-Ray 12/15/16 02:51 IMPRESSION: NO RADIOGRAPHIC EVIDENCE FOR ACUTE ABDOMINAL DISEASE. Chest X-Ray 12/18/16 12:18 IMPRESSION: 1. Cardiomegaly with mild pulmonary vascular prominence that shows improvement. 2. Minimal pleural effusions cannot be ruled out. 3. Left lower lobe consolidation or atelectasis cannot be ruled out. Assessment & Plan - Diagnosis (1) Acute kidney injury superimposed on chronic kidney disease Is this a current diagnosis for this admission?: YesPlan: Continue torsemide 40 mg twice daily. Nephrology following and feels that creatinine is at baseline. (2) Acute on chronic congestive heart failure Qualifiers: Congestive heart failure type: combined Qualified Code(s): I50.43 - Acute on chronic combined systolic (congestive) and diastolic (congestive) heart failure Is this a current diagnosis for this admission?: YesPlan: Diuretics as mentioned above. Continue Coreg. Cardiology following. Patient to follow-up with Dr. Chinchilla as an outpatient. Dietitian evaluated as I think patient's outpatient dietary habits have greatly impacted her hospital readmissions. It sounds as though her fluid intake is not consistent/restricted, her sodium intake is not consistent/restricted, her carbohydrate intake is not consistent/restricted. (3) COPD (chronic obstructive pulmonary disease) Qualifiers: Emphysema type: unspecified Is this a current diagnosis for this admission?: Yes (4) Diabetes mellitus type I Qualifiers: Diabetes mellitus complication status: with unspecified complications Qualified Code(s): E10.8 - Type 1 diabetes mellitus with unspecified complications Is this a current diagnosis for this admission?: YesPlan: Increased 70/30 insulin to 30 units every morning and 20 units every afternoon. Sliding scale Humalog. (5) Generalized weakness Is this a current diagnosis for this admission?: YesPlan: Continue physical therapy. Patient will need home physical therapy upon discharge. (6) Hyperkalemia Is this a current diagnosis for this admission?: YesPlan: Resolved. (7) Hyponatremia Is this a current diagnosis for this admission?: YesPlan: Resolved. (8) UTI (urinary tract infection) Qualifiers: Urinary tract infection type: site unspecified Hematuria presence: without hematuria Qualified Code(s): N39.0 - Urinary tract infection, site not specified Is this a current diagnosis for this admission?: YesPlan: Discontinued Zyvox secondary to developing leukopenia since initiation. Ramon catheter discontinued on 12/20/2016. (9) Hypercholesteremia Is this a current diagnosis for this admission?: YesPlan: Discontinued Lipitor as family states patient is allergic to all statins except Crestor (not on formulary). Resume Crestor after discharge. (10) Pacemaker Is this a current diagnosis for this admission?: Yes (11) Metatarsalgia of left foot Is this a current diagnosis for this admission?: YesPlan: Post-op shoe while weight bearing. - Time Time Spent with patient: 35 or more minutes
[2016-12-22] MEDS: INSULIN LISPRO 100 UNIT/ML 3 ML VIAL SUBCUT PRN (17:59)
[2016-12-23 05:30] LABS: ABSOLUTE BASOPHILS # (AUTO) 0.1 10^3/uL (0.0-0.2); ABSOLUTE EOSINOPHILS # (AUTO) 0.1 10^3/uL (0.0-0.6); ABSOLUTE LYMPHOCYTES (AUTO) 0.9 10^3/uL (0.5-4.7); ABSOLUTE MONOCYTES (AUTO) 0.3 10^3/uL (0.1-1.4); ABSOLUTE NEUT (AUTO) 1.5 10^3/uL (1.7-8.2); BASOPHILS % (AUTO) 3.3 % (0-2); EOSINOPHILS % (AUTO) 3.9 % (0-6); HEMATOCRIT 31.1 % (36.0-47.0); HEMOGLOBIN 10.4 g/dL (12.0-15.5); HGB HCT DIFFERENCE 0.1; LYMPHOCYTES % (AUTO) 30.5 % (13-45); MEAN CORPUSCULAR HEMOGLOBIN 30.3 pg (27.0-33.4); MEAN CORPUSCULAR HGB CONC 33.3 g/dL (32.0-36.0); MEAN CORPUSCULAR VOLUME 91 fl (80-97); MONOCYTES % (AUTO) 9.2 % (3-13); RED BLOOD COUNT 3.42 10^6/uL (3.72-5.28); RED CELL DISTRIBUTION WIDTH 15.9 % (11.5-14.0); SEGMENTED NEUTROPHILS % (AUTO) 53.1 % (42-78); WHITE BLOOD COUNT 2.9 10^3/uL (4.0-10.5)
[2016-12-23] MEDS: HEPARIN SOD (PORCINE) 5,000 UNIT/ML 1 ML SYRINGE SUBCUT SCH ×2 (05:42→15:03)
[2016-12-23 05:59] LABS: ANION GAP 10 (5-19); BLOOD UREA NITROGEN 66 mg/dL (7-20); CALCIUM 11.2 mg/dL (8.4-10.2); CARBON DIOXIDE 36 mmol/L (22-30); CHLORIDE 95 mmol/L (98-107); CREATININE RESULT 1.88 mg/dL (0.52-1.25); GLUCOSE 101 mg/dL (75-110); POTASSIUM 4.3 mmol/L (3.6-5.0); SODIUM 140.8 mmol/L (137-145)
[2016-12-23] MEDS: HUM INSULIN NPH/REG INSULIN HM 100 UNIT/1 ML 3 ML SUBCUT SCH (09:41)
[2016-12-23] MEDS: FAMOTIDINE 20 MG TABLET PO SCH (09:43)
[2016-12-23] MEDS: ASPIRIN 81 MG TABLET, ENT COATED PO SCH (09:43)
[2016-12-23] MEDS: ALLOPURINOL 100 MG TABLET PO SCH (09:43)
[2016-12-23] MEDS: CARVEDILOL 12.5 MG TABLET PO SCH (09:43)
[2016-12-23] MEDS: ASCORBIC ACID 500 MG TABLET PO SCH (09:43)
[2016-12-23] MEDS: OMEGA-3 ACID ETHYL ESTERS 1 GM CAPSULE PO SCH (09:44)
[2016-12-23] MEDS: MAGNESIUM OXIDE 400 MG TABLET PO SCH ×2 (09:44→15:07)
[2016-12-23] MEDS: POTASSIUM CHLORIDE 10 MEQ TABLET.SA PO SCH (09:44)
[2016-12-23] MEDS: FENOFIBRATE NANOCRYSTALLIZED 145 MG TABLET PO SCH (09:46)
[2016-12-23] MEDS: PAROXETINE HCL 20 MG TABLET PO SCH (09:46)
[2016-12-23] MEDS: AMLODIPINE BESYLATE 10 MG TABLET PO SCH (09:47)
[2016-12-23] MEDS: HYDROCODONE/ACETAMINOPHEN 10-325 MG TABLET PO PRN ×2 (09:47→15:08)
[2016-12-23] MEDS: ISOSORBIDE MONONITRATE 30 MG TAB.ER.24H PO SCH (09:47)
[2016-12-23] MEDS: TORSEMIDE 20 MG TABLET PO SCH (09:48)
[2016-12-23] MEDS: ANASTROZOLE 1 MG TABLET PO SCH (09:48)
[2016-12-23] MEDS: FLUTICASONE NASAL SPRAY 50 MCG/SPRY 120 SPRAY/16 GM NASL SCH (09:52)
--- NOTE | 2016-12-23 11:36 | PDOC DISCHARGE SUMMARY ---
General - Admit/Disc Date/PCP Admission Date/Primary Care Provider: 12/15/16 06:51 YO CHASE, Discharge Date: 12/23/16 - Discharge Diagnosis (1) Acute kidney injury superimposed on chronic kidney disease Is this a current diagnosis for this admission?: Yes (2) Acute on chronic congestive heart failure Is this a current diagnosis for this admission?: Yes (3) COPD (chronic obstructive pulmonary disease) Is this a current diagnosis for this admission?: Yes (4) Diabetes mellitus type I Is this a current diagnosis for this admission?: Yes (5) Generalized weakness Is this a current diagnosis for this admission?: Yes (6) Hyperkalemia Is this a current diagnosis for this admission?: Yes (7) Hyponatremia Is this a current diagnosis for this admission?: Yes (8) UTI (urinary tract infection) Is this a current diagnosis for this admission?: Yes (9) Hypercholesteremia Is this a current diagnosis for this admission?: Yes (10) Pacemaker Is this a current diagnosis for this admission?: Yes (11) Metatarsalgia of left foot Is this a current diagnosis for this admission?: Yes - Additional Information Resuscitation Status: Full Code Discharge Diet: Cardiac - 1500ml fluid restriction, Diabetic Discharge Activity: Activity As Tolerated, Balance Activity w/Rest, Weigh Daily Home Medications: Allopurinol [Zyloprim 100 mg Tablet] 100 mg PO DAILY 12/19/16 Anastrozole [Arimidex 1 mg Tablet] 1 mg PO DAILY 12/19/16 Ascorbic Acid [Vitamin C 500 mg Tablet] 500 mg PO DAILY 12/19/16 Aspirin [Aspirin EC] 81 mg PO DAILY 12/19/16 Carvedilol [Coreg 25 mg Tablet] 25 mg PO Q12 12/19/16 Cetirizine HCl [Zyrtec 10 mg Tablet] 10 mg PO DAILYP PRN 12/19/16 Famotidine [Pepcid 20 mg Tablet] 20 mg PO Q12 12/19/16 Fenofibrate Nanocrystallized [Triglide] 160 mg PO DAILY 12/19/16 Fluticasone Propionate [Flonase Nasal [place] 50 Mcg/[place] 16 gm] 1 spray NASL Q12 12/19/16 Hydrocodone Bit/Acetaminophen [Hydrocodon-Acetaminophn 10-325] 1 tab PO QIDP PRN 12/19/16 Isosorbide Mononitrate [Isosorbide Mononitrate ER] 120 mg PO QHS 12/19/16 Magnesium Oxide [Mag-Ox 400 mg Tablet] 400 mg PO TID 12/19/16 Nitroglycerin [Nitrostat] 0.4 mg SL Q5MP PRN 12/19/16 [place]-3 Acid Ethyl Esters [Lovaza 1 gm Capsule] 2 gm PO BID 12/19/16 Ondansetron HCl [Zofran 8 mg Tablet] 8 mg PO Q8HP PRN 12/19/16 Paroxetine HCl [Paxil 20 mg Tablet] 20 mg PO QAM 12/19/16 Potassium Chloride [K-Tab ER] 20 meq PO BID 12/19/16 Rosuvastatin Calcium [Crestor 10 mg Tablet] 10 mg PO DAILY 12/19/16 Simethicone [Mylicon 80 mg Chewable Tablet] 80 mg PO Q6HP PRN 12/19/16 Torsemide [Demadex 20 mg Tablet] 40 mg PO BID 12/19/16 Acetaminophen [Tylenol 325 mg Tablet] 650 mg PO Q6HP PRN tablet 12/23/16 Amlodipine Besylate [Norvasc 10 mg Tablet] 10 mg PO DAILY #30 tablet 12/23/16 Gabapentin [Neurontin 100 mg Capsule] 100 mg PO QHS #30 capsule 12/23/16 Hum Insulin NPH/Reg Insulin Hm [Insulin 70-30 (NPH/Reg) 100 unit/mL] 20 unit SUBCUT ACSUPPER unit 12/23/16 Hum Insulin NPH/Reg Insulin Hm [Insulin 70-30 (NPH/Reg) 100 unit/mL] 30 unit SUBCUT ACBRKFST unit 12/23/16 Insulin Aspart [Novolog Flexpen] 0 unit SUBCUT .SLD SCALE #1 pen 12/23/16 History of Present Illness Patient complains of: Shortness of breath History of Present Illness: JACINTA LUNSFORD is a 81 year old female with a past medical history of multifactorial shortness of breath with obesity, COPD, mitral regurgitation, diastolic dysfunction, atelectasis, chronic constipation and now cardiorenal syndrome who presents after developing shortness of breath over the last 2 days. Patient has had recent reduction of Lasix secondary to worsening cardiorenal syndrome. In the emergency room she is found to have clinical pulmonary edema and started on BiPAP improving symptoms. She is also found to have hyponatremia, worsening renal failure and hyperkalemia and is referred to the hospitalist for admission. He denies chest pain nausea vomiting but admits to left lower quadrant pain and constipation. Patient and daughter are very upset regarding patient's lack of improvement and are concerned for recurrent admissions, uncontrolled hyperglycemia and recent reduction in Lasix dose. Patients daughter multiple complaints regarding the use of the humidifier with BiPAP and the belief it will worsen her mother's respiratory status and reluctance of M.D. to place Ramon catheter to "suck out "the extra fluid. Patient upset she feels hypoglycemic and has not had blood sugar checked, Accu-Chek reveals a blood sugar of greater than 200. Patient and daughter do not wish to discuss advanced care planning at this time. Hospital Course Hospital Course: Patient was admitted for acute respiratory failure secondary to decompensated CHF. Patient has been decompensated while she is in the hospital and then goes home and exhibits dietary indiscretion resulting in volume overloaded. She is again compensated in the hospital and placed back on outpatient regimen. She has remained stable on outpatient regimen for 4 days prior to discharge. Dietitian has consult with and try to reinforce dietary regimen for CHF, chronic kidney disease, and diabetes. Daughter has been active in the practice patient of this and seems frustrated about her mother's dietary indiscretions. Patient is on chronic home oxygen at baseline regarding has home oxygen in place. Patient has generalized weakness and ambulatory dysfunction. She has been undergoing physical therapy and we will order home physical therapy upon discharge. Patient declines referral to inpatient rehabilitation. Patient had urinary tract infection while in the hospital. Urine culture grew Escherichia coli with limited susceptibilities. Patient was treated with several days of Zyvox but started to develop leukopenia and Zyvox was abandoned. White blood count is now trending back up. Patient had acute on chronic renal failure. She was followed by Dr. De Luna of nephrology in the hospital. Kidney function is now around baseline. Patient will follow-up with Dr. De Luna as an outpatient. Physical Exam Vital Signs: Temp Pulse Resp BP Pulse Ox 98.1 F 60 19 119/59 L 100 12/23/16 07:20 12/23/16 07:20 12/23/16 07:20 12/23/16 07:20 12/23/16 07:20 Intake & Output 12/22/16 12/23/16 12/24/16 06:59 06:59 06:59 Intake Total 960 1194 Output Total 2950 1800 Weight 70.8 kg 71.6 kg GENERAL: No acute distress, frail, elderly HEENT: Conjunctiva clear, nonicteric, moist mucous membranes, no JVD, midline trachea RESPIRATORY: Clear to auscultation bilaterally, no wheezes, no rhonchi CARDIAC: Regular rate and rhythm, no murmurs/gallops/rubs ABDOMEN: Soft, nondistended, nontender, positive bowel sounds, no rebound, no guarding EXTREMETIES: No edema, cyanosis, clubbing NEUROLOGIC: Alert, oriented to person/place/time, CN's grossly intact, no focal deficits SKIN: No rash, wounds PSYCH: Normal mood, normal affect Results Laboratory Results: 12/23/16 04:57 12/23/16 04:57 12/23/16 12/23/16 04:57 04:57 WBC 2.9 L RBC 3.42 L Hgb 10.4 L Hct 31.1 L MCV 91 MCH 30.3 MCHC 33.3 RDW 15.9 H Plt Count 191 Seg Neutrophils % 53.1 Lymphocytes % 30.5 Monocytes % 9.2 Eosinophils % 3.9 Basophils % 3.3 H Absolute Neutrophils 1.5 L Absolute Lymphocytes 0.9 Absolute Monocytes 0.3 Absolute Eosinophils 0.1 Absolute Basophils 0.1 Sodium 140.8 Potassium 4.3 Chloride 95 L Carbon Dioxide 36 H Anion Gap 10 BUN 66 H Creatinine 1.88 H Est GFR ( Amer) 31 L Est GFR (Non-Af Amer) 26 L Glucose 101 Calcium 11.2 H Impressions: Renal Ultrasound 12/15/16 00:00 IMPRESSION: 1. Left renal atrophy relative to the right kidney. No obstructive changes. 2. Bladder looks relatively unremarkable, fairly nondistended. Abdomen X-Ray 12/15/16 02:51 IMPRESSION: NO RADIOGRAPHIC EVIDENCE FOR ACUTE ABDOMINAL DISEASE. Chest X-Ray 12/18/16 12:18 IMPRESSION: 1. Cardiomegaly with mild pulmonary vascular prominence that shows improvement. 2. Minimal pleural effusions cannot be ruled out. 3. Left lower lobe consolidation or atelectasis cannot be ruled out. Qualifiers PATEINT BEING DISCHARGED WITH ANY OF THE FOLLOWING DIAGNOSIS?: Heart Failure ME Pt discharged ACEI/ARBS?: No Reason(s) for not prescribing ACEI/ARBS:: Not indicated HF Pt being discharged on ACEI for LVEF less than 40%?: No Reason(s) for not prescribing ACEI:: Not indicated HF Pt being discharged on ARBS for LVEF less than 40%?: No HF Pt with Afib discharged with Warfarin?: No HF Pt discharged on evidence-based Beta Leydi:: Yes Plan Time Spent: Less than 30 Minutes
[2016-12-23 13:44] VITALS: BP 132/51
== END 2016-12-23 15:38 | disposition home health service (06) | DRG 291 ==
LOC: ER 22:30 → UNDOADMIN 12-15 01:48 → EH 12-15 01:48 → 3N 12-15 04:04 → EH 12-15 04:04 → 3N 12-15 06:51
PROVIDERS: ADMIT Internal Medicine; ATTEND Internal Medicine Nephrology
PROC: 5A09557 Assistance with Respiratory Ventilation, Greater than 96 Consecutive Hours, Continuous Positive Airway Pressure (ICD-10-PCS; principal; 2016-12-14)
DX: I13.0 Hypertensive heart and chronic kidney disease with heart failure and stage 1 through stage 4 chronic kidney disease, or unspecified chronic kidney disease (principal); J96.01 Acute respiratory failure with hypoxia; I50.43 Acute on chronic combined systolic (congestive) and diastolic (congestive) heart failure; N17.9 Acute kidney failure, unspecified; E87.1 Hypo-osmolality and hyponatremia; N18.4 Chronic kidney disease, stage 4 (severe); N25.81 Secondary hyperparathyroidism of renal origin; N39.0 Urinary tract infection, site not specified; E10.22 Type 1 diabetes mellitus with diabetic chronic kidney disease; E10.40 Type 1 diabetes mellitus with diabetic neuropathy, unspecified; E10.65 Type 1 diabetes mellitus with hyperglycemia; E78.00 Pure hypercholesterolemia, unspecified; I50.9 Heart failure, unspecified; M77.42 Metatarsalgia, left foot; E87.5 Hyperkalemia; Z66 Do not resuscitate; K21.9 Gastro-esophageal reflux disease without esophagitis; Z86.73 Personal history of transient ischemic attack (TIA), and cerebral infarction without residual deficits; G47.30 Sleep apnea, unspecified; F32.9 Major depressive disorder, single episode, unspecified; K44.9 Diaphragmatic hernia without obstruction or gangrene; E78.5 Hyperlipidemia, unspecified; F41.9 Anxiety disorder, unspecified; I35.0 Nonrheumatic aortic (valve) stenosis; D63.1 Anemia in chronic kidney disease; E66.9 Obesity, unspecified; R13.19 Other dysphagia; I34.0 Nonrheumatic mitral (valve) insufficiency; C50.912 Malignant neoplasm of unspecified site of left female breast; E10.51 Type 1 diabetes mellitus with diabetic peripheral angiopathy without gangrene; I48.91 Unspecified atrial fibrillation; E05.20 Thyrotoxicosis with toxic multinodular goiter without thyrotoxic crisis or storm; J44.9 Chronic obstructive pulmonary disease, unspecified; G43.909 Migraine, unspecified, not intractable, without status migrainosus; E83.52 Hypercalcemia; M19.90 Unspecified osteoarthritis, unspecified site; Z86.010 Personal history of colon polyps; Z79.4 Long term (current) use of insulin; Z79.899 Other long term (current) drug therapy; Z95.0 Presence of cardiac pacemaker; Z88.6 Allergy status to analgesic agent; B96.20 Unspecified Escherichia coli [E. coli] as the cause of diseases classified elsewhere; Z88.0 Allergy status to penicillin; Z91.041 Radiographic dye allergy status; Z83.3 Family history of diabetes mellitus; Z82.49 Family history of ischemic heart disease and other diseases of the circulatory system; Z95.828 Presence of other vascular implants and grafts; Z90.49 Acquired absence of other specified parts of digestive tract; Z90.710 Acquired absence of both cervix and uterus; Z80.3 Family history of malignant neoplasm of breast; Z80.1 Family history of malignant neoplasm of trachea, bronchus and lung; Z80.6 Family history of leukemia; Z68.30 Body mass index [BMI] 30.0-30.9, adult; Z88.2 Allergy status to sulfonamides; Z85.828 Personal history of other malignant neoplasm of skin
CPT/HCPCS: 36415; 71010; 74020; 76770; 80048; 80053; 81001; 82040; 82533; 82550; 82553; 82962; 83735; 83880; 83930; 83935; 83970; 84100; 84133; 84300; 84484; 85025; 87086; 87088; 87186; 93005; 93010; 93306; 93975; 94640; 94660; 96374; 99285; G8978-GP; G8979-GP; J1644; J1815; J1940; J2405; J3490; J7030; J7050; J7620

== ENCOUNTER → 2016-12-26 | Outpatient (CLI) | payer MEDICARE, MEDICAID ==
[2016-12-26 16:26] LABS: ABSOLUTE BASOPHILS # (AUTO) 0.1 10^3/uL (0.0-0.2); ABSOLUTE EOSINOPHILS # (AUTO) 0.1 10^3/uL (0.0-0.6); ABSOLUTE MONOCYTES (AUTO) 0.3 10^3/uL (0.1-1.4); BASOPHILS % (AUTO) 1.2 % (0-2); EOSINOPHILS % (AUTO) 2.7 % (0-6); HEMATOCRIT 29.9 % (36.0-47.0); HEMOGLOBIN 9.9 g/dL (12.0-15.5); HGB HCT DIFFERENCE -0.2; MEAN CORPUSCULAR HEMOGLOBIN 30.1 pg (27.0-33.4); MEAN CORPUSCULAR HGB CONC 33.2 g/dL (32.0-36.0); MEAN CORPUSCULAR VOLUME 91 fl (80-97); MONOCYTES % (AUTO) 7.2 % (3-13); RED CELL DISTRIBUTION WIDTH 15.6 % (11.5-14.0); SEGMENTED NEUTROPHILS % (AUTO) 65.9 % (42-78); WHITE BLOOD COUNT 4.5 10^3/uL (4.0-10.5)
[2016-12-26 16:43] LABS: ANION GAP 13 (5-19); BLOOD UREA NITROGEN 70 mg/dL (7-20); CALCIUM 10.8 mg/dL (8.4-10.2); CARBON DIOXIDE 31 mmol/L (22-30); CHLORIDE 96 mmol/L (98-107); CREATININE RESULT 1.86 mg/dL (0.52-1.25); GLUCOSE 113 mg/dL (75-110); PHOSPHORUS 4.3 mg/dL (2.5-4.5); POTASSIUM 4.5 mmol/L (3.6-5.0); SODIUM 140.2 mmol/L (137-145)
== END ==
LOC: OD 15:38
PROVIDERS: ATTEND Internal Medicine Nephrology
DX: E11.22 Type 2 diabetes mellitus with diabetic chronic kidney disease (principal); I12.9 Hypertensive chronic kidney disease with stage 1 through stage 4 chronic kidney disease, or unspecified chronic kidney disease; N18.4 Chronic kidney disease, stage 4 (severe); E83.52 Hypercalcemia
CPT/HCPCS: 36415; 80048; 84100; 85025

== ENCOUNTER 2016-12-31 10:43 | Emergency (ER) | payer MEDICARE, MEDICAID ==
--- NOTE | 2016-12-31 10:50 | ER Document Report ---
ED General - General Stated Complaint: WEAKNESS Time Seen by Provider: 12/31/16 10:50 Mode of Arrival: Medic Information source: Patient Notes: 81 ex smoker yo with hx copd, oxygen dependent, end stage renal disease, anemia , PR, CHF, pacemaker, diabetes, hypertensive c/o incrased weakness, peripheral edema and shortness of breath since friday. Got up this morning much worse with shortness of breath. pulse ox 96% and RR 25 on 2 lpm nc now. She took extra 20mg Lasix 2 days [address] Has new dr abdoul riggs seen dr. cruz yet. TRAVEL OUTSIDE OF THE [place] IN LAST 30 DAYS: No - Related Data Allergies/Adverse Reactions: codeine [Codeine] Allergy (Severe, Verified 09/29/16 09:18) Hospitalized Penicillins Allergy (Severe, Verified 09/29/16 09:18) Redness, heat, swelling at site promethazine HCl [From Phenergan] Allergy (Unknown, Verified 09/29/16 09:18) PROBLEMS WITH LEGS Sulfa (Sulfonamide Antibiotics) Allergy (Unknown, Verified 09/29/16 09:18) Unknown reaction hydralazine HCl [From Apresoline] Adverse Reaction (Severe, Verified 09/29/16 09 :18) Cardiac arrest atorvastatin calcium [From Lipitor] Adverse Reaction (Verified 09/29/16 09:18) IV Contrast Allergy (Severe, Uncoded 09/29/16 09:18) ESRD Past Medical History - General Information source: Patient - Social History Smoking Status: Former Smoker Frequency of alcohol use: None Drug Abuse: None Lives with: Family - daughter Family History: CAD, DM, Hyperlipidemia, Hypertension - Past Medical History Cardiac Medical History: Reports: Hx Atrial Fibrillation, Hx Congestive Heart Failure, Hx Coronary Artery Disease, Hx Hypercholesterolemia, Hx Hypertension, Hx Peripheral Vascular Disease, Hx Heart Murmur Pulmonary Medical History: Reports: Hx Asthma, Hx Bronchitis, Hx COPD, Hx Pneumonia Neurological Medical History: Reports: Hx Migraine Endocrine Medical History: Reports: Hx Diabetes Mellitus Type 1, Hx Diabetes Mellitus Type 2 Malignancy Medical History: Reports: Hx Breast Cancer, Hx Skin Cancer - Basal cell GI Medical History: Reports: Hx Diverticulitis, Hx Gastroesophageal Reflux Disease, Hx Irritable Bowel, Hx Ulcer Musculoskeltal Medical History: Reports Hx Arthritis, Reports Hx Gout Psychiatric Medical History: Reports: Hx Depression Traumatic Medical History: Reports: Hx Fractures Past Surgical History: Reports: Hx Abdominal Surgery - Abdominal and umbilical hernia, Hx Appendectomy, Hx Bowel Surgery - Instetinal bleed surgically repaired in the s, Hx Cholecystectomy, Hx Herniorrhaphy, Hx Hysterectomy, Hx Kidney (Renal Surgery) - Left kidney stent, Hx Pacemaker, Hx Thyroid Surgery , Other - Previous EGDs and colonoscopies, breast lumpectomy - Immunizations Hx Diphtheria, Pertussis, Tetanus Vaccination: No - Tetanus out of date Hx Pneumococcal Vaccination: 07/18/14 Review of Systems - Review of Systems Constitutional: No symptoms reported EENT: No symptoms reported Cardiovascular: No symptoms reported Respiratory: See HPI Gastrointestinal: No symptoms reported Genitourinary: No symptoms reported Female Genitourinary: No symptoms reported Musculoskeletal: No symptoms reported Skin: No symptoms reported Hematologic/Lymphatic: No symptoms reported Neurological/Psychological: No symptoms reported Physical Exam - Vital signs Vitals: Temp Pulse Resp Pulse Ox 97.5 F 81 18 94 12/31/16 10:47 12/31/16 10:47 12/31/16 10:47 12/31/16 10:47 Interpretation: Tachypneic - General General appearance: Alert, Other - chronically ill, sad - HEENT Head: Normocephalic, Atraumatic Eyes: Normal Conjunctiva: Normal Pupils: PERRL Pharynx: Normal Neck: Supple. No: Lymphadenopathy - Respiratory Respiratory status: Tachypnea. No: Retractions Chest status: Nontender Breath sounds: Rales - bases, left more than right Chest palpation: Normal - Cardiovascular Rhythm: Regular Heart sounds: Normal auscultation Murmur: Yes - perdue systolic - Abdominal Inspection: Normal Distension: No distension Bowel sounds: Normal Tenderness: Nontender. No: Tender Organomegaly: No organomegaly - Back Back: Normal, Nontender - Extremities General upper extremity: Normal inspection, Nontender, Normal color, Normal ROM , Normal temperature General lower extremity: Normal inspection, Nontender, Normal color, Normal ROM , Normal temperature, Normal weight bearing. No: Martínez's sign Ankle: Edema - pitting edema bilateral lower legs to knees - Neurological Neuro grossly intact: Yes Cognition: Normal Orientation: AAOx4 [place] Coma Scale Eye Opening: Spontaneous [place] Coma Scale Verbal: Oriented [place] Coma Scale Motor: Obeys Commands Valentina Coma Scale Total: 15 Speech: Normal Motor strength normal: LUE, RUE, LLE, RLE Sensory: Normal - Psychological Associated symptoms: Normal affect, Depressed - Skin Skin Temperature: Warm Skin Moisture: Dry Skin Color: Normal Skin irregularity: negative: Rash Course - Re-evaluation Re-evalutation: 12/31/16 11:[address] Donovan for Lasix order and he recommends 40 IV not 20. No additional orders needed. 12/31/16 14:05 recheck on pt she is complaining of some bloating to her stomach and has some very mild tenderness to her left lower quadrant. Oxygen was 93% on 2 L of nasal cannula and she was doing fine without shortness of breath ambulating. This x-ray shows no CHF and it actually looks better than when she was discharged on December. Scuffed on the lab work with Dr. Delaney Lora him. 12/31/16 14:39 Discussed at length with Dr. santiago and patient is able to go home but I am having to call the pharmacy and get medications corrected according to what was prescribed on December 23 when she was discharged from the hospital. The nurses doing this for me. History packed that she got from below the pills were falling out and I don't believe she was taking the prescribed medication correctly. I tried to discuss this with her daughter and she and her daughter were arguing about it her was in the room and we decided to go by the list and call [facility] to get a corrected. - Vital Signs Vital signs: Temp Pulse Resp BP Pulse Ox 97.5 F 81 24 H 162/58 H 97 12/31/16 10:47 12/31/16 10:47 12/31/16 15:01 12/31/16 15:01 12/31/16 15:01 - Laboratory Result Diagrams: 12/31/16 11:00 12/31/16 11:00 Laboratory results interpreted by me: 12/31/16 12/31/16 12/31/16 11:00 11:00 11:00 RBC 3.51 L Hgb 10.4 L Hct 31.7 L RDW 16.7 H Seg Neutrophils % 80.7 H Lymphocytes % 10.9 L Carbon Dioxide 31 H BUN 52 H Creatinine 1.34 H Est GFR ( Amer) 46 L Est GFR (Non-Af Amer) 38 L Glucose 153 H Calcium 11.0 H Creatine Kinase 20 L NT-Pro-B Natriuret Pep 4370 H Discharge - Discharge Clinical Impression: COPD, congestive heart failure, shortness of breath, anemia, end-stage renal disease, oxygen dependent Condition: Good Disposition: HOME, SELF-CARE Instructions: Anemia ([facility]), Chronic Obstructive Lung Disease ([facility]), Congestive Heart Failure ([facility]) Additional Instructions: Medication distribution pack per real drugs according to the December 23 discharge instructions Return to the emergency room for worsening symptoms Please complete the patient satisfaction survey if you get one, and return it.. If you do not receive a survey, then you can go to the [facility] website, [email or web address] and place your comments about your very good care. Thank you very much. It was a pleasure being your medical provider today. Prescriptions: Albuterol Sulfate [Ventolin 0.083% Neb 2.5 mg/3 mL Ampul] 2.5 mg NEB Q3HP PRN # 25 vial PRN Reason: Nebulizer [Nebulizer Machine] 1 each MC ASDIR PRN #1 kit PRN Reason:
[2016-12-31] MEDS ORDERED: FUROSEMIDE INJ/PF 20 MG/2 ML SDV IV ONE (11:05)
[2016-12-31] MEDS ORDERED: ASPIRIN 81 MG TABLET, CHEWABLE PO ONE (11:06)
[2016-12-31] MEDS ORDERED: HYDROCODONE/ACETAMINOPHEN 5-325 MG TABLET PO ONE (11:06)
[2016-12-31] MEDS ORDERED: FUROSEMIDE INJ/PF 40 MG/4 ML SDV IV ONE (11:13)
[2016-12-31 11:19] LABS: ABSOLUTE BASOPHILS # (AUTO) 0.1 10^3/uL (0.0-0.2); ABSOLUTE EOSINOPHILS # (AUTO) 0.1 10^3/uL (0.0-0.6); ABSOLUTE LYMPHOCYTES (AUTO) 0.6 10^3/uL (0.5-4.7); ABSOLUTE MONOCYTES (AUTO) 0.3 10^3/uL (0.1-1.4); ABSOLUTE NEUT (AUTO) 4.7 10^3/uL (1.7-8.2); BASOPHILS % (AUTO) 1.2 % (0-2); EOSINOPHILS % (AUTO) 1.9 % (0-6); HEMATOCRIT 31.7 % (36.0-47.0); HEMOGLOBIN 10.4 g/dL (12.0-15.5); HGB HCT DIFFERENCE -0.5; LYMPHOCYTES % (AUTO) 10.9 % (13-45); MEAN CORPUSCULAR HEMOGLOBIN 29.7 pg (27.0-33.4); MEAN CORPUSCULAR HGB CONC 32.9 g/dL (32.0-36.0); MEAN CORPUSCULAR VOLUME 90 fl (80-97); MONOCYTES % (AUTO) 5.3 % (3-13); RED BLOOD COUNT 3.51 10^6/uL (3.72-5.28); RED CELL DISTRIBUTION WIDTH 16.7 % (11.5-14.0); SEGMENTED NEUTROPHILS % (AUTO) 80.7 % (42-78); WHITE BLOOD COUNT 5.8 10^3/uL (4.0-10.5)
[2016-12-31 11:30] LABS: PROTHROMBIN TIME 13.4 SEC (11.4-15.4)
[2016-12-31 11:39] LABS: ALANINE AMINOTRANSFERASE 24 U/L (9-52); ALBUMIN 4.2 g/dL (3.5-5.0); ALKALINE PHOSPHATASE 76 U/L (38-126); ANION GAP 14 (5-19); ASPARTATE AMINO TRANSFERASE 23 U/L (14-36); BILIRUBIN,DIRECT 0.4 mg/dL (0.0-0.4); BILIRUBIN,TOTAL 0.9 mg/dL (0.2-1.3); BLOOD UREA NITROGEN 52 mg/dL (7-20); CARBON DIOXIDE 31 mmol/L (22-30); CHLORIDE 98 mmol/L (98-107); CREATINE KINASE 20 U/L (30-135); CREATININE RESULT 1.34 mg/dL (0.52-1.25); GLUCOSE 153 mg/dL (75-110); POTASSIUM 3.6 mmol/L (3.6-5.0); SODIUM 143.2 mmol/L (137-145); TOTAL PROTEIN 7.3 g/dL (6.3-8.2)
[2016-12-31] MEDS ORDERED: AMLODIPINE BESYLATE 10 MG TABLET PO ONE (11:48)
[2016-12-31] MEDS ORDERED: CARVEDILOL 12.5 MG TABLET PO ONE (11:48)
[2016-12-31 11:49] LABS: CREATINE KINASE MB 0.62 ng/mL (<4.55); TROPONIN I 0.03 ng/mL
[2016-12-31] MEDS ORDERED: ALBUTEROL SULFATE 0.083% NEB 2.5 MG/3 ML AMPUL NEB ONE (11:49)
[2016-12-31 13:26] LABS: APPEARANCE,URINE CLEAR; BILIRUBIN,URINE NEGATIVE (NEGATIVE); GLUCOSE, URINE NEGATIVE (NEGATIVE); KETONES,URINE NEGATIVE (NEGATIVE); LEUKOCYTE ESTERASE,URINE NEGATIVE (NEGATIVE); NITRITE,URINE NEGATIVE (NEGATIVE); PROTEIN,URINE NEGATIVE (NEGATIVE); URINE SPECIFIC GRAVITY 1.006; UROBILINOGEN,URINE NEGATIVE mg/dL (<2.0)
[2016-12-31 15:03] VITALS: BP 162/58
--- NOTE | 2016-12-31 22:13 | EKG REPORT ---
SEVERITY:- ABNORMAL ECG - SINUS RHYTHM FIRST DEGREE AV BLOCK PROBABLE LEFT ATRIAL ABNORMALITY RIGHT BUNDLE BRANCH BLOCK LVH WITH IVCD AND SECONDARY REPOL ABNRM : Confirmed by: Saba Chinchilla MD 31-Dec-2016 22:11:31
== END 2016-12-31 15:20 | disposition home or self-care (01) ==
LOC: ER 10:43
DX: J44.9 Chronic obstructive pulmonary disease, unspecified (principal); I50.9 Heart failure, unspecified; R06.02 Shortness of breath; D64.9 Anemia, unspecified; N18.6 End stage renal disease; R53.1 Weakness; Z87.891 Personal history of nicotine dependence; Z99.81 Dependence on supplemental oxygen
CPT/HCPCS: 93005; 94640; 99285; 96374; 36415; 87086; 82553; 82550; 83735; 85025; 85610; 80053; 81001; 84484; 83880; 71010; 93010; A9270 ×5; J1940

== ENCOUNTER 2017-01-08 10:28 | Inpatient (IN) | payer MEDICARE, MEDICAID ==
--- NOTE | 2017-01-08 11:32 | RADIOLOGY REPORT (SQ) ---
EXAM DESCRIPTION: CHEST SINGLE VIEW COMPLETED DATE/TIME: 01/08/2017 11:12 am REASON FOR STUDY: bed 6 db COMPARISON: 12/31/2016. NUMBER OF VIEWS: One view. TECHNIQUE: Single frontal radiographic view of the chest acquired. LIMITATIONS: None. FINDINGS: LUNGS AND PLEURA: Increasing left pleural effusion with basilar density. Minimal right pl eural effusion, unchanged. MEDIASTINUM AND HILAR STRUCTURES: No masses or contour abnormality. HEART AND VASCULATURE: Cardiac enlargement. Vascular congestion. BONES: No acute findings. HARDWARE: Pacemaker. Clips in the soft tissues of the neck. OTHER: No other significant finding. IMPRESSION: CARDIOMEGALY WITH VASCULAR CONGESTION. INCREASING LEFT PLEURAL EFFUSION WITH BASILAR AT ELECTASIS. TECHNICAL DOCUMENTATION: JOB ID: [id number] 1987 [employer]- All Rights Reserved
--- NOTE | 2017-01-08 12:00 | ER Document Report ---
ED Respiratory Problem - General Mode of Arrival: Ambulatory Information source: Patient TRAVEL OUTSIDE OF THE [place] IN LAST 30 DAYS: No - HPI Patient complains to provider of: Short of breath Onset: This morning Duration: Worse/persistent Short of Breath: Mild Associated symptoms: Other - "swelling" <BENI COPE - Last Filed: 01/08/17 13:49> <STACEY BRENNER - Last Filed: 01/08/17 16:48> - General Chief Complaint: Shortness Of Breath Stated Complaint: DIFFICULTY BREATHING Time Seen by Provider: 01/08/17 10:56 Notes: Patient is an 81-year-old female that presents to the emergency department today with complaints of increased shortness of breath which began this morning prior to arrival. Patient states she has felt more weak than normal over the last few days as well. Patient states she is unable to ambulate as she normally would without getting very short of breath. Patient also mentions chest pain, she is wearing a nitro patch on her chest currently. Patient states she took 40 mg of furosemide today which is her normal dosage. Patient does state she has had "swelling" recently. Patient states she "let Dr. Lizarraga go one month ago and is now being seen by Dr. Ordonez". Patient states there were no medicine changes during the transition. Patient denies any fever. (BENI COPE) - Related Data Allergies/Adverse Reactions: codeine [Codeine] Allergy (Severe, Verified 09/29/16 09:18) Hospitalized Penicillins Allergy (Severe, Verified 09/29/16 09:18) Redness, heat, swelling at site promethazine HCl [From Phenergan] Allergy (Unknown, Verified 09/29/16 09:18) PROBLEMS WITH LEGS Sulfa (Sulfonamide Antibiotics) Allergy (Unknown, Verified 09/29/16 09:18) Unknown reaction hydralazine HCl [From Apresoline] Adverse Reaction (Severe, Verified 09/29/16 09 :18) Cardiac arrest atorvastatin calcium [From Lipitor] Adverse Reaction (Verified 09/29/16 09:18) IV Contrast Allergy (Severe, Uncoded 09/29/16 09:18) ESRD Home Medications: Current Home Medications Albuterol Sulfate [Ventolin 0.083% Neb 2.5 mg/3 mL Ampul] 3 ml NEB RTQ3HP PRN [History] Diltiazem HCl [Cardizem Cd 240 mg Capsule.cr] 240 mg PO Q12 01/08/17 [History] Hum Insulin NPH/Reg Insulin Hm [Insulin 70-30 (NPH/Reg) 100 unit/mL] 20 unit SQ ACSUPPER 01/08/17 [History] Hum Insulin NPH/Reg Insulin Hm [Insulin 70-30 (NPH/Reg) 100 unit/mL] 30 unit SQ ACBRKFST 01/08/17 [History] Insulin Aspart [Novolog Flexpen] 0 unit SQ .PERSLIDINGSCALE 01/08/17 [History] Metolazone [Zaroxolyn 2.5 mg Tablet] 2.5 mg PO DAILY 01/08/17 [History] Past Medical History - General Information source: [facility] Records - Social History Smoking Status: Never Smoker Cigarette use (# per day): No Frequency of alcohol use: None Drug Abuse: None Lives with: Family Family History: Reviewed & Not Pertinent, CAD, DM, Hyperlipidemia, Hypertension - Past Medical History Cardiac Medical History: Reports: Hx Atrial Fibrillation, Hx Congestive Heart Failure, Hx Coronary Artery Disease, Hx Hypercholesterolemia, Hx Hypertension, Hx Peripheral Vascular Disease, Hx Heart Murmur Pulmonary Medical History: Reports: Hx Asthma, Hx Bronchitis, Hx COPD, Hx Pneumonia Neurological Medical History: Reports: Hx Migraine Endocrine Medical History: Reports: Hx Diabetes Mellitus Type 1, Hx Diabetes Mellitus Type 2 Malignancy Medical History: Reports: Hx Breast Cancer, Hx Skin Cancer - Basal cell GI Medical History: Reports: Hx Diverticulitis, Hx Gastroesophageal Reflux Disease, Hx Irritable Bowel, Hx Ulcer Musculoskeltal Medical History: Reports Hx Arthritis, Reports Hx Gout Psychiatric Medical History: Reports: Hx Depression Traumatic Medical History: Reports: Hx Fractures Past Surgical History: Reports: Hx Abdominal Surgery - Abdominal and umbilical hernia, Hx Appendectomy, Hx Bowel Surgery - Instetinal bleed surgically repaired in the s, Hx Cholecystectomy, Hx Herniorrhaphy, Hx Hysterectomy, Hx Kidney (Renal Surgery) - Left kidney stent, Hx Pacemaker, Hx Thyroid Surgery , Other - Previous EGDs and colonoscopies, breast lumpectomy - Immunizations Hx Diphtheria, Pertussis, Tetanus Vaccination: No - Tetanus out of date Hx Pneumococcal Vaccination: 07/18/14 <BENI COPE - Last Filed: 01/08/17 13:49> Review of Systems - Review of Systems Constitutional: See HPI, Other - "more tired and weaker than normal". denies: Fever EENT: No symptoms reported Cardiovascular: See HPI, Chest pain Respiratory: See HPI, Short of breath Gastrointestinal: No symptoms reported Genitourinary: No symptoms reported Female Genitourinary: No symptoms reported Musculoskeletal: No symptoms reported Skin: No symptoms reported Hematologic/Lymphatic: No symptoms reported Neurological/Psychological: No symptoms reported -: Yes All other systems reviewed and negative <BENI COPE - Last Filed: 01/08/17 13:49> Physical Exam - Vital signs Interpretation: Hypertensive, Tachypneic - General General appearance: Alert In distress: Mild - Respiratory Respiratory status: Respiratory distress - mils, Retractions, Tachypnea Breath sounds: Decreased air movement, Rales - Cardiovascular Rhythm: Regular - Abdominal Inspection: Normal Tenderness: Nontender - Back Back: Normal - Neurological Neuro grossly intact: Yes Cognition: Normal Orientation: AAOx4 Valentina Coma Scale Eye Opening: Spontaneous Valentina Coma Scale Verbal: Oriented Gilbert Coma Scale Motor: Obeys Commands Valentina Coma Scale Total: 15 Speech: Normal Motor strength normal: LUE, RUE, LLE, RLE Sensory: Normal - Psychological Associated symptoms: Normal affect, Normal mood - Skin Skin Temperature: Warm Skin Moisture: Dry Skin Color: Pale <STACEY BRENNER - Last Filed: 01/08/17 16:48> - Vital signs Vitals: Resp BP Pulse Ox 27 H 156/56 H 94 01/08/17 10:37 01/08/17 10:37 01/08/17 10:37 Course - Laboratory Result Diagrams: 01/08/17 12:07 01/08/17 12:07 - Transfer of Care Care transferred to following provider: Dr. Avila <BENI COPE - Last Filed: 01/08/17 13:49> - Laboratory Result Diagrams: 01/08/17 12:07 01/08/17 12:07 - Diagnostic Test Radiology reviewed: Image reviewed, Reports reviewed - EKG Interpretation by Me Rate: Normal Rhythm: Other - PacedPaced <STACEY BRENNER - Last Filed: 01/08/17 16:48> - Re-evaluation Re-evalutation: 01/08/17 13:18 Ramon catheter was ordered for patient. Patient and family did not want to do catheter and preferred the patient would get up to bedside commode. Patient got up to bedside commode and the exertion caused her to drop her oxygen saturation. She is currently wheezing with a sat of 82%. A DuoNeb has been ordered and the patient will be placed on BiPAP. 01/08/17 13:40 While nurses getting DuoNeb and respiratory therapy was called, patient dropped her oxygen saturation to 68% with retractions throughout. Patient was placed on BiPAP and given nebulizer with it. She is also started on nitroglycerin therapy at this time. Patient responded very well to BiPAP. 01/08/17 14:28 Patient is much improved after BiPAP nitroglycerin drip. Patient appears to be a COPD and CHF exacerbation. Patient is pale and slightly more anemic. No evidence for bleeding at this time. Discussed with and patient did not want to be intubated if she needed it. She is not an impending airway at this time. Discussed with daughter who agrees with this plan. Troponin is negative. Patient has a paced rhythm on EKG. No chest pain. Patient patient discussed with the hospitalist service and will be admitted to the [facility]. (STACEY BRENNER) - Vital Signs Vital signs: Temp Pulse Resp BP Pulse Ox 98.3 F 70 20 163/51 H 95 01/08/17 16:38 01/08/17 16:38 01/08/17 16:38 01/08/17 16:38 01/08/17 16:38 - Laboratory Laboratory results interpreted by me: 01/08/17 01/08/17 01/08/17 12:07 12:07 12:07 RBC 2.92 L Hgb 8.8 L Hct 26.4 L RDW 16.7 H Seg Neutrophils % 79.6 H BUN 69 H Creatinine 1.86 H Est GFR ( Amer) 31 L Est GFR (Non-Af Amer) 26 L Glucose 135 H Calcium 10.8 H Creatine Kinase < 20 L NT-Pro-B Natriuret Pep 1910 H - Transfer of Care Notes: 01/08/17 13:50 Dr. Avila accepts patient for admission into [facility] (BENI COPE) Critical Care Note - Critical Care Note Total time excluding time spent on procedures (mins): 60 - Evaluation and management of dyspnea, management of respiratory distress, coronation of admission, counseling of family, multiple re-evaluations <STACEY BRENNER - Last Filed: 01/08/17 16:48> Discharge <BENI COPE - Last Filed: 01/08/17 13:49> - Discharge Admitting Provider: Hospitalist - [facility] Unit Admitted: I[facility] <STACEY BRENNER - Last Filed: 01/08/17 16:48> - Discharge Clinical Impression: Respiratory distress, Renal insufficiency Acute on chronic congestive heart failure Qualifiers: Congestive heart failure type: combined Qualified Code(s): I50.43 - Acute on chronic combined systolic (congestive) and diastolic (congestive) heart failure COPD (chronic obstructive pulmonary disease) Qualifiers: COPD type: emphysema Emphysema type: unspecified Qualified Code(s): J43.9 - Emphysema, unspecified Condition: Fair Disposition: ADMITTED INPATIENT Scribe Attestation: 01/08/17 16:48 I personally performed the services described in the documentation, reviewed and edited the documentation which was dictated to the scribe in my presence, and it accurately records my words and actions. (STACEY BRENNER) Scribe Documentation - Scribe Written by Herminio:: Herminio Morris, 01/08/17 1213 acting as scribe for :: Shannon <BENI COPE - Last Filed: 01/08/17 13:49>
[2017-01-08] MEDS ORDERED: FUROSEMIDE INJ/PF 40 MG/4 ML SDV IV ONE (12:02)
[2017-01-08 12:23] LABS: ABSOLUTE EOSINOPHILS # (AUTO) 0.1 10^3/uL (0.0-0.6); ABSOLUTE LYMPHOCYTES (AUTO) 0.7 10^3/uL (0.5-4.7); ABSOLUTE MONOCYTES (AUTO) 0.2 10^3/uL (0.1-1.4); ABSOLUTE NEUT (AUTO) 4.1 10^3/uL (1.7-8.2); BASOPHILS % (AUTO) 0.6 % (0-2); EOSINOPHILS % (AUTO) 1.7 % (0-6); HEMATOCRIT 26.4 % (36.0-47.0); HEMOGLOBIN 8.8 g/dL (12.0-15.5); LYMPHOCYTES % (AUTO) 13.3 % (13-45); MEAN CORPUSCULAR HEMOGLOBIN 30.1 pg (27.0-33.4); MEAN CORPUSCULAR HGB CONC 33.4 g/dL (32.0-36.0); MEAN CORPUSCULAR VOLUME 90 fl (80-97); MONOCYTES % (AUTO) 4.8 % (3-13); RED BLOOD COUNT 2.92 10^6/uL (3.72-5.28); RED CELL DISTRIBUTION WIDTH 16.7 % (11.5-14.0); SEGMENTED NEUTROPHILS % (AUTO) 79.6 % (42-78); WHITE BLOOD COUNT 5.2 10^3/uL (4.0-10.5)
[2017-01-08 12:44] LABS: ALANINE AMINOTRANSFERASE 30 U/L (9-52); ALBUMIN 4.1 g/dL (3.5-5.0); ALKALINE PHOSPHATASE 80 U/L (38-126); ANION GAP 15 (5-19); ASPARTATE AMINO TRANSFERASE 21 U/L (14-36); BILIRUBIN,DIRECT 0.4 mg/dL (0.0-0.4); BILIRUBIN,TOTAL 0.5 mg/dL (0.2-1.3); BLOOD UREA NITROGEN 69 mg/dL (7-20); CALCIUM 10.8 mg/dL (8.4-10.2); CARBON DIOXIDE 30 mmol/L (22-30); CHLORIDE 98 mmol/L (98-107); CREATININE RESULT 1.86 mg/dL (0.52-1.25); GLUCOSE 135 mg/dL (75-110); POTASSIUM 3.7 mmol/L (3.6-5.0); SODIUM 142.9 mmol/L (137-145); TOTAL PROTEIN 6.7 g/dL (6.3-8.2)
[2017-01-08 12:45] LABS: CREATINE KINASE < 20 U/L (30-135)
[2017-01-08 12:51] LABS: CREATINE KINASE MB 0.57 ng/mL (<4.55)
[2017-01-08 12:52] LABS: TROPONIN I < 0.012 ng/mL
[2017-01-08 13:18] LABS: APPEARANCE,URINE CLEAR; BILIRUBIN,URINE NEGATIVE (NEGATIVE); GLUCOSE, URINE NEGATIVE (NEGATIVE); KETONES,URINE NEGATIVE (NEGATIVE); LEUKOCYTE ESTERASE,URINE NEGATIVE (NEGATIVE); NITRITE,URINE NEGATIVE (NEGATIVE); PROTEIN,URINE NEGATIVE (NEGATIVE); URINE SPECIFIC GRAVITY 1.005; UROBILINOGEN,URINE NEGATIVE mg/dL (<2.0)
[2017-01-08] MEDS ORDERED: IPRATROPIUM/ALBUTEROL 0.5-2.5 MG/3 ML AMPUL NEB ONE ×2 (13:18→13:23)
[2017-01-08] MEDS ORDERED: METHYLPREDNISOLONE INJ 125 MG/2 ML SDV IV ONE (13:18)
--- NOTE | 2017-01-08 13:31 | EKG REPORT ---
SEVERITY:- ABNORMAL ECG - ATRIAL-SENSED VENTRICULAR-PACED COMPLEXES : Confirmed by: Mayo Stokes MD 08-Jan-2017 13:31:08
--- NOTE | 2017-01-08 13:32 | EKG REPORT ---
SEVERITY:- ABNORMAL ECG - ATRIAL-VENTRICULAR DUAL-PACED RHYTHM : Confirmed by: Mayo Stokes MD 08-Jan-2017 13:31:30
[2017-01-08] MEDS ORDERED: NITROGLYCERIN/D5W 250 ML IV PRN (13:40)
[2017-01-08] MEDS ORDERED: ENOXAPARIN SODIUM INJ 30 MG/0.3 ML DISP.SYRIN SUBCUT ONE (15:00)
[2017-01-08] MEDS ORDERED: CETIRIZINE 10 MG TABLET PO PRN (16:11)
[2017-01-08] MEDS ORDERED: NITROGLYCERIN 0.4 MG/TAB 25 TAB/BOTTLE SL PRN (16:11)
--- NOTE | 2017-01-08 16:11 | PDOC H&P ---
History of Present Illness Admission Date/PCP: 01/08/17 13:48 MANUEL YO DO Patient complains of: Shortness of breath History of Present Illness: JACINTA LUNSFORD is a 81 year old female with multiple medical problems including diastolic congestive heart failure, chronic kidney disease, COPD, mitral regurgitation, and obesity. She has had numerous hospitalizations over the past 5 years. Medication management has been difficult because of her cardiorenal syndrome. She is followed by Dr. Erazo for cardiology and Dr. De Luna for nephrology. She presents today with increased work of breathing. The chest x-ray shows vascular congestion. No getting up to the commode in the emergency department she had an oxygen desaturation into the 80s, and then into the 60s. She has received a dose of Lasix and is diuresing. She had a nebulizer treatment and this also seemed to help. She denies chest pain. I am seeing her in the emergency department and she is wearing BiPAP. She has confirmed a DO NOT INTUBATE status. The patient will be admitted to the intermediate ICU for further evaluation and treatment. Past Medical History Cardiac Medical History: Reports: Atrial Fibrillation, Congestive Heart Failure , Coronary Artery Disease, Hyperlipidema, Hypertension, Peripheral Vascular Disease, Heart Murmur, Other - mitral regurgitation Denies: Myocardial Infarction, Pulmonary Embolism Pulmonary Medical History: Reports: Asthma, Bronchitis, Chronic Obstructive Pulmonary Disease (COPD), Pneumonia Denies: Respiratory Failure, Sleep Apnea, Tuberculosis Neurological Medical History: Reports: Migraine Denies: Seizures Endocrine Medical History: Reports: Diabetes Mellitus Type 2, Obesity Denies: Hyperthyroidism, Hypothyroidism Renal/ Medical History: Reports: Chronic Kidney Disease Denies: End Stage Renal Disease Malignancy Medical History: Reports: Breast Cancer, Skin Cancer - Basal cell Denies: Cervical Cancer, Leukemia, Lung Cancer, Ovarian Cancer GI Medical History: Reports: Diverticulitis, Gastroesophageal Reflux Disease Denies: Crohn's Disease, Hiatal Hernia Musculoskeltal Medical History: Reports: Arthritis, Gout Denies: Fibromyalgia Psychiatric Medical History: Reports: Depression Denies: Bipolar Disorder, Dementia, Post Traumatic Stress Disorder Hematology: Reports: Anemia Denies: Hemophilia, Sickle Cell Disease Infectious Medical History: Denies: HIV Past Surgical History Past Surgical History: Reports: Appendectomy, Cholecystectomy, Herniorrhaphy, Hysterectomy, Pacemaker, Other - Previous EGDs and colonoscopies, breast lumpectomy Denies: Amputation, Section, Colostomy, Coronary Artery Bypass Graft , Gastric Bypass Surgery, Mastectomy, Tonsillectomy, Tubal Ligation Social History Lives with: Family Smoking Status: Never Smoker Frequency of Alcohol Use: None Hx Recreational Drug Use: No Drugs: None Hx Prescription Drug Abuse: No Family History Family History: Reviewed & Not Pertinent, CAD, DM, Hyperlipidemia, Hypertension Parental Family History Reviewed: No Children Family History Reviewed: No Sibling(s) Family History Reviewed.: No Medication/Allergy Home Medications: Allopurinol [Zyloprim 100 mg Tablet] 100 mg PO DAILY 12/19/16 Anastrozole [Arimidex 1 mg Tablet] 1 mg PO DAILY 12/19/16 Ascorbic Acid [Vitamin C 500 mg Tablet] 500 mg PO DAILY 12/19/16 Aspirin [Aspirin EC] 81 mg PO DAILY 12/19/16 Carvedilol [Coreg 25 mg Tablet] 25 mg PO Q12 12/19/16 Cetirizine HCl [Zyrtec 10 mg Tablet] 10 mg PO DAILYP PRN 12/19/16 Famotidine [Pepcid 20 mg Tablet] 20 mg PO Q12 12/19/16 Fenofibrate Nanocrystallized [Triglide] 160 mg PO DAILY 12/19/16 Fluticasone Propionate [Flonase Nasal Perry 50 Mcg/Perry 16 gm] 1 spray NASL Q12 12/19/16 Hydrocodone Bit/Acetaminophen [Hydrocodon-Acetaminophn 10-325] 1 tab PO QIDP PRN 12/19/16 Isosorbide Mononitrate [Isosorbide Mononitrate ER] 120 mg PO QHS 12/19/16 Magnesium Oxide [Mag-Ox 400 mg Tablet] 400 mg PO TID 12/19/16 Nitroglycerin [Nitrostat] 0.4 mg SL Q5MP PRN 12/19/16 Humphreys-3 Acid Ethyl Esters [Lovaza 1 gm Capsule] 2 gm PO BID 12/19/16 Ondansetron HCl [Zofran 8 mg Tablet] 8 mg PO Q8HP PRN 12/19/16 Paroxetine HCl [Paxil 20 mg Tablet] 20 mg PO QAM 12/19/16 Potassium Chloride [K-Tab ER] 20 meq PO BID 12/19/16 Rosuvastatin Calcium [Crestor 10 mg Tablet] 10 mg PO DAILY 12/19/16 Simethicone [Mylicon 80 mg Chewable Tablet] 80 mg PO Q6HP PRN 12/19/16 Torsemide [Demadex 20 mg Tablet] 40 mg PO BID 12/19/16 Amlodipine Besylate [Norvasc 10 mg Tablet] 10 mg PO DAILY #30 tablet 12/23/16 Gabapentin [Neurontin 100 mg Capsule] 100 mg PO QHS #30 capsule 12/23/16 Albuterol Sulfate [Ventolin 0.083% Neb 2.5 mg/3 mL Ampul] 3 ml NEB RTQ3HP PRN Diltiazem HCl [Cardizem Cd 240 mg Capsule.cr] 240 mg PO Q12 01/08/17 Hum Insulin NPH/Reg Insulin Hm [Insulin 70-30 (NPH/Reg) 100 unit/mL] 20 unit SQ ACSUPPER 01/08/17 Hum Insulin NPH/Reg Insulin Hm [Insulin 70-30 (NPH/Reg) 100 unit/mL] 30 unit SQ ACBRKFST 01/08/17 Insulin Aspart [Novolog Flexpen] 0 unit SQ .PERSLIDINGSCALE 01/08/17 Metolazone [Zaroxolyn 2.5 mg Tablet] 2.5 mg PO DAILY 01/08/17 Allergies/Adverse Reactions: codeine [Codeine] Allergy (Severe, Verified 09/29/16 09:18) Hospitalized Penicillins Allergy (Severe, Verified 09/29/16 09:18) Redness, heat, swelling at site promethazine HCl [From Phenergan] Allergy (Unknown, Verified 09/29/16 09:18) PROBLEMS WITH LEGS Sulfa (Sulfonamide Antibiotics) Allergy (Unknown, Verified 09/29/16 09:18) Unknown reaction hydralazine HCl [From Apresoline] Adverse Reaction (Severe, Verified 09/29/16 09 :18) Cardiac arrest atorvastatin calcium [From Lipitor] Adverse Reaction (Verified 09/29/16 09:18) IV Contrast Allergy (Severe, Uncoded 09/29/16 09:18) ESRD Review of Systems ROS unobtainable: Other - BiPAP and fatigue Physical Exam Vital Signs: Temp Pulse Resp BP Pulse Ox 97.7 F 23 H 157/59 H 100 01/08/17 11:20 01/08/17 15:21 01/08/17 15:21 01/08/17 15:21 General appearance: PRESENT: morbidly obese, other - moderate distress Head exam: PRESENT: atraumatic, normocephalic Eye exam: PRESENT: conjunctiva pink, EOMI, PERRLA. ABSENT: scleral icterus Ear exam: PRESENT: normal external ear exam Mouth exam: PRESENT: moist, tongue midline Neck exam: ABSENT: carotid bruit, lymphadenopathy, thyromegaly Respiratory exam: PRESENT: accessory muscle use, crackles, decreased breath sounds, rales, wheezes. ABSENT: rhonchi Cardiovascular exam: PRESENT: RRR. ABSENT: diastolic murmur, rubs, systolic murmur Pulses: PRESENT: normal dorsalis pedis pul Vascular exam: PRESENT: normal capillary refill GI/Abdominal exam: PRESENT: normal bowel sounds, soft. ABSENT: distended, guarding, mass, organolmegaly, rebound, tenderness Rectal exam: PRESENT: deferred Extremities exam: PRESENT: full ROM, +2 edema, other - changes of osteoarthritis. ABSENT: calf tenderness, clubbing, pedal edema Neurological exam: PRESENT: alert, awake, oriented to person, oriented to place , CN II-XII grossly intact. ABSENT: motor sensory deficit Psychiatric exam: PRESENT: appropriate affect. ABSENT: homicidal ideation, suicidal ideation Skin exam: PRESENT: dry, intact, warm. ABSENT: cyanosis, rash Results Impressions: Chest X-Ray 01/08/17 10:32 IMPRESSION: CARDIOMEGALY WITH VASCULAR CONGESTION. INCREASING LEFT PLEURAL EFFUSION WITH BASILAR ATELECTASIS. Assessment & Plan - Diagnosis (1) Acute on chronic diastolic (congestive) heart failure Is this a current diagnosis for this admission?: YesPlan: For now, we will treat with Lasix. We will monitor her clinical status and laboratories in view of her severe kidney disease. Will consult her blanket cutter hand, Dr. Erazo. (2) Chronic kidney disease, stage IV (severe) Is this a current diagnosis for this admission?: YesPlan: We will monitor her renal function studies. Will ask her travel assistant, Dr. De Luna, to see. (4) COPD (chronic obstructive pulmonary disease) Qualifiers: Emphysema type: unspecified Is this a current diagnosis for this admission?: YesPlan: She seemed to respond to a breathing treatment in the emergency department. We will continue with nebulized bronchodilators. (5) Acute on chronic respiratory failure with hypoxemia Is this a current diagnosis for this admission?: YesPlan: We will provide oxygen supplementation as needed. (6) Mitral regurgitation Qualifiers: Cardiac valve disease etiology: nonrheumatic Qualified Code(s): I34.0 - Nonrheumatic mitral (valve) insufficiency (8) Essential hypertension Is this a current diagnosis for this admission?: YesPlan: We will continue home medications and monitor. (9) Diabetes mellitus type 2 Is this a current diagnosis for this admission?: YesPlan: We will continue home medications and monitor. - Time Time Spent: 50 to 70 Minutes Critical Time spent with patient: 35 or more minutes Medications reviewed and adjusted accordingly: Yes
[2017-01-08] MEDS ORDERED: GLUCAGON,HUMAN RECOMB 1 MG INJ IM PRN (16:21)
[2017-01-08] MEDS ORDERED: DEXTROSE 40% GEL 15 GM TUBE PO PRN ×2 (16:21)
[2017-01-08] MEDS ORDERED: DEXTROSE 50%-WATER 25 GM/50 ML DISP.SYRIN IV PRN ×2 (16:21)
[2017-01-08] MEDS ORDERED: (PENDING PHARMACY ID) (Potassium Chloride [K-Tab Er] 20 MEQ) PO SCH (18:00)
[2017-01-08] MEDS: POTASSIUM CHLORIDE 10 MEQ TABLET.SA PO SCH (18:22)
[2017-01-08] MEDS: OMEGA-3 ACID ETHYL ESTERS 1 GM CAPSULE PO SCH (18:22)
[2017-01-08] MEDS: MAGNESIUM OXIDE 400 MG TABLET PO SCH (18:22)
[2017-01-08 18:32] LABS: CREATINE KINASE MB 0.64 ng/mL (<4.55); TROPONIN I 0.028 ng/mL
--- NOTE | 2017-01-08 20:04 | EKG REPORT ---
SEVERITY:- ABNORMAL ECG - VENTRICULAR-PACED COMPLEXES : Confirmed by: Mayo Stokes MD 08-Jan-2017 20:04:21
[2017-01-08] MEDS: SIMETHICONE 80 MG TAB.CHEW PO PRN (20:42)
[2017-01-08] MEDS: FUROSEMIDE INJ/PF 40 MG/4 ML SDV IV SCH (21:36)
[2017-01-08] MEDS: GABAPENTIN 100 MG CAPSULE PO SCH (21:37)
[2017-01-08] MEDS: FAMOTIDINE 20 MG TABLET PO SCH (21:38)
[2017-01-08] MEDS: DILTIAZEM HCL 240 MG CAPSULE.CR PO SCH (21:38)
[2017-01-08] MEDS: CARVEDILOL 12.5 MG TABLET PO SCH (21:38)
[2017-01-08] MEDS: ATORVASTATIN CALCIUM 20 MG TABLET PO SCH (21:40)
[2017-01-08] MEDS: FLUTICASONE NASAL SPRAY 50 MCG/SPRY 120 SPRAY/16 GM NASL SCH (21:40)
[2017-01-08] MEDS: INSULIN LISPRO 100 UNIT/ML 3 ML VIAL SUBCUT PRN (21:52)
[2017-01-08] MEDS ORDERED: ISOSORBIDE MONONITRATE 30 MG TAB.ER.24H PO SCH (22:00)
[2017-01-09 00:39] LABS: CREATINE KINASE MB 0.55 ng/mL (<4.55); TROPONIN I 0.058 ng/mL
[2017-01-09] MEDS: HYDROCODONE/ACETAMINOPHEN 10-325 MG TABLET PO PRN ×2 (03:45→15:24)
[2017-01-09 07:09] LABS: ABSOLUTE LYMPHOCYTES (AUTO) 0.5 10^3/uL (0.5-4.7); ABSOLUTE MONOCYTES (AUTO) 0.2 10^3/uL (0.1-1.4); BASOPHILS % (AUTO) 0.4 % (0-2); LYMPHOCYTES % (AUTO) 14.4 % (13-45); MEAN CORPUSCULAR VOLUME 91 fl (80-97); MONOCYTES % (AUTO) 6.2 % (3-13); RED BLOOD COUNT 2.76 10^6/uL (3.72-5.28); RED CELL DISTRIBUTION WIDTH 16.7 % (11.5-14.0); WHITE BLOOD COUNT 3.8 10^3/uL (4.0-10.5)
[2017-01-09 07:34] LABS: CREATINE KINASE MB 0.56 ng/mL (<4.55)
[2017-01-09] MEDS ORDERED: ENOXAPARIN SODIUM INJ 40 MG/0.4 ML DISP.SYRIN SUBCUT SCH (08:00)
[2017-01-09] MEDS: FLUTICASONE NASAL SPRAY 50 MCG/SPRY 120 SPRAY/16 GM NASL SCH ×2 (10:36→21:18)
[2017-01-09] MEDS: FUROSEMIDE INJ/PF 40 MG/4 ML SDV IV SCH ×2 (10:36→21:16)
[2017-01-09] MEDS: OMEGA-3 ACID ETHYL ESTERS 1 GM CAPSULE PO SCH ×2 (10:37→17:44)
[2017-01-09] MEDS: CARVEDILOL 12.5 MG TABLET PO SCH ×2 (10:37→21:17)
[2017-01-09] MEDS: MAGNESIUM OXIDE 400 MG TABLET PO SCH ×3 (10:38→17:44)
[2017-01-09] MEDS: ANASTROZOLE 1 MG TABLET PO SCH (10:38)
[2017-01-09] MEDS: ASPIRIN 81 MG TABLET, ENT COATED PO SCH (10:38)
[2017-01-09] MEDS: AMLODIPINE BESYLATE 10 MG TABLET PO SCH (10:39)
[2017-01-09] MEDS: FAMOTIDINE 20 MG TABLET PO SCH (10:39)
[2017-01-09] MEDS: METOLAZONE 2.5 MG TABLET PO SCH (10:39)
[2017-01-09] MEDS: DILTIAZEM HCL 240 MG CAPSULE.CR PO SCH ×2 (10:40→21:16)
[2017-01-09] MEDS: ENOXAPARIN SODIUM INJ 30 MG/0.3 ML DISP.SYRIN SUBCUT SCH (10:40)
[2017-01-09] MEDS: ALLOPURINOL 100 MG TABLET PO SCH (10:40)
[2017-01-09] MEDS: POTASSIUM CHLORIDE 10 MEQ TABLET.SA PO SCH ×2 (10:42→17:44)
[2017-01-09] MEDS: PAROXETINE HCL 20 MG TABLET PO SCH (10:42)
[2017-01-09] MEDS: INSULIN LISPRO 100 UNIT/ML 3 ML VIAL SUBCUT PRN ×2 (10:56→17:44)
[2017-01-09] MEDS: ALBUTEROL SULFATE 0.083% NEB 2.5 MG/3 ML AMPUL NEB PRN (12:06)
--- NOTE | 2017-01-09 14:20 | PDOC PROGRESS REPORT ---
Subjective Progress Note for:: 01/09/17 Subjective:: JACINTA LUNSFORD is an 81 year old female with multiple medical problems including diastolic congestive heart failure, chronic kidney disease, COPD, mitral regurgitation, and obesity. She has had numerous hospitalizations over the past 5 years. Medication management has been difficult because of her cardiorenal syndrome. She is followed by Dr. Erazo for cardiology and Dr. De Luna for nephrology. She presented 01/08/2017 with increased work of breathing. The chest x-ray showed vascular congestion. While getting up to the commode in the emergency department she had an oxygen desaturation into the 80s, and then into the 60s. She received a dose of Lasix and began diuresing. She had a nebulizer treatment and this also seemed to help. She denied chest pain. When I saw her in the emergency department she was wearing BiPAP. She confirmed a DO NOT INTUBATE status. The patient was admitted to the intermediate ICU for further evaluation and treatment. Overnight, she has continued to diurese. She remains on BiPAP but requests that it be removed. We are awaiting Cardiology and Nephro consultations. Physical Exam Vital Signs: Temp Pulse Resp BP Pulse Ox 98.0 F 60 21 H 134/42 H 96 01/09/17 08:00 01/09/17 12:06 01/09/17 12:06 01/09/17 08:36 01/09/17 08:50 Intake & Output 01/08/17 01/09/17 01/10/17 06:59 06:59 06:59 Intake Total 453 Output Total 2400 -1946 Weight 70.8 kg Additional comments: General appearance: PRESENT: morbidly obese, other - mild distress Head exam: PRESENT: atraumatic, normocephalic Eye exam: PRESENT: conjunctiva pink, EOMI, PERRLA. ABSENT: scleral icterus Ear exam: PRESENT: normal external ear exam Mouth exam: PRESENT: moist, tongue midline Neck exam: ABSENT: carotid bruit, lymphadenopathy, thyromegaly Respiratory exam: PRESENT: less accessory muscle use, slightly better air movement, wheezes. ABSENT: rhonchi Cardiovascular exam: PRESENT: RRR. ABSENT: diastolic murmur, rubs, systolic murmur Pulses: PRESENT: normal dorsalis pedis pul Vascular exam: PRESENT: normal capillary refill GI/Abdominal exam: PRESENT: normal bowel sounds, soft. ABSENT: distended, guarding, mass, organolmegaly, rebound, tenderness Rectal exam: PRESENT: deferred Extremities exam: PRESENT: full ROM, +1 edema, other - changes of osteoarthritis. ABSENT: calf tenderness, clubbing, pedal edema Neurological exam: PRESENT: alert, awake, oriented to person, oriented to place , CN II-XII grossly intact. ABSENT: motor sensory deficit Psychiatric exam: PRESENT: appropriate affect. ABSENT: homicidal ideation, suicidal ideation Skin exam: PRESENT: dry, intact, warm. ABSENT: cyanosis, rash Results Laboratory Results: 01/09/17 06:42 01/09/17 06:42 WBC 3.8 L RBC 2.76 L Hgb 8.0 L Hct 25.0 L MCV 91 MCH 29.0 MCHC 32.0 RDW 16.7 H Plt Count 165 Seg Neutrophils % 79.0 H Lymphocytes % 14.4 Monocytes % 6.2 Eosinophils % 0.0 Basophils % 0.4 Absolute Neutrophils 3.0 Absolute Lymphocytes 0.5 Absolute Monocytes 0.2 Absolute Eosinophils 0.0 Absolute Basophils 0.0 01/08/17 01/08/17 01/08/17 17:55 17:55 23:59 Creatine Kinase < 20 L < 20 L CK-MB (CK-2) 0.64 Troponin I 0.028 01/08/17 01/09/17 01/09/17 23:59 06:42 06:42 Creatine Kinase < 20 L CK-MB (CK-2) 0.55 0.56 Troponin I 0.058 0.137 Impressions: Chest X-Ray 01/08/17 10:32 IMPRESSION: CARDIOMEGALY WITH VASCULAR CONGESTION. INCREASING LEFT PLEURAL EFFUSION WITH BASILAR ATELECTASIS. Assessment & Plan - Diagnosis (1) Acute on chronic diastolic (congestive) heart failure Is this a current diagnosis for this admission?: YesPlan: Continue Lasix. Continue to monitor her clinical status and laboratories in view of her severe kidney disease. Awaiting cardiology consultation. (2) Chronic kidney disease, stage IV (severe) Is this a current diagnosis for this admission?: YesPlan: We will monitor her renal function studies. Will ask her clay carman, Dr. De Luna, to see. (3) Cardiorenal syndrome with renal failure Is this a current diagnosis for this admission?: Yes (4) COPD (chronic obstructive pulmonary disease) Qualifiers: COPD type: emphysema Emphysema type: unspecified Qualified Code(s) : J43.9 - Emphysema, unspecified Is this a current diagnosis for this admission?: YesPlan: She seemed to respond to a breathing treatment in the emergency department. Continuing with nebulized bronchodilators. (5) Acute on chronic respiratory failure with hypoxemia Is this a current diagnosis for this admission?: YesPlan: We will provide oxygen supplementation as needed. (6) Mitral regurgitation Qualifiers: Cardiac valve disease etiology: nonrheumatic Qualified Code(s): I34.0 - Nonrheumatic mitral (valve) insufficiency Is this a current diagnosis for this admission?: Yes (7) Pulmonary hypertension Is this a current diagnosis for this admission?: Yes (8) Essential hypertension Is this a current diagnosis for this admission?: YesPlan: Continuing home medications and monitoring. (9) Diabetes mellitus type 2 Is this a current diagnosis for this admission?: YesPlan: Continue home medications and to monitor. (10) Cardiac pacemaker in situ Is this a current diagnosis for this admission?: Yes (11) Generalized weakness Is this a current diagnosis for this admission?: Yes
[2017-01-09] MEDS ORDERED: NITROGLYCERIN/D5W 50 MG/250 ML RTUINJ IV ONE (18:52)
--- NOTE | 2017-01-09 19:54 | PDOC CONSULTATION ---
Consultation Consult Date: 01/09/17 Attending physician:: MELYSSA GARRETT Consult reason:: Shortness of breath, CHF History of Present Illness Admission Date/PCP: 01/08/17 13:48 MANUEL YO DO Patient complains of: Shortness of breath History of Present Illness: JACINTA LUNSFORD is a 81 year old female with multiple medical problems including diastolic congestive heart failure, chronic kidney disease, COPD, mitral regurgitation, and obesity. She has had numerous hospitalizations over the past 5 years. Medication management has been difficult because of her cardiorenal syndrome. She is followed by Dr. Erazo for cardiology and Dr. De Luna for nephrology. She presents today with increased work of breathing. The chest x-ray shows vascular congestion. On getting up to the commode in the emergency department she had an oxygen desaturation into the 80s, and then into the 60s. She has received a dose of Lasix and is diuresing. She had a nebulizer treatment and this also seemed to help. She denies chest pain. I am seeing her in the emergency department and she is wearing BiPAP. She has confirmed a DO NOT INTUBATE status. The patient will be admitted to the intermediate ICU for further evaluation and treatment. I was asked to evaluate patient because of congestive heart failure. Patient does have a pacemaker. This history was supplemented, agreed with and confirmed. Patient did have an appointment with Dr. Chinchilla in the clinic yesterday but this appointment was canceled. Past Medical History Cardiac Medical History: Reports: Atrial Fibrillation, Congestive Heart Failure , Coronary Artery Disease, Hyperlipidema, Hypertension, Peripheral Vascular Disease, Heart Murmur, Other - mitral regurgitation Denies: Myocardial Infarction, Pulmonary Embolism Pulmonary Medical History: Reports: Asthma, Bronchitis, Chronic Obstructive Pulmonary Disease (COPD), Pneumonia Denies: Respiratory Failure, Sleep Apnea, Tuberculosis Neurological Medical History: Reports: Migraine Denies: Seizures Endocrine Medical History: Reports: Diabetes Mellitus Type 1, Diabetes Mellitus Type 2, Obesity Denies: Hyperthyroidism, Hypothyroidism Renal/ Medical History: Reports: Chronic Kidney Disease Denies: End Stage Renal Disease Malignancy Medical History: Reports: Breast Cancer, Skin Cancer - Basal cell Denies: Cervical Cancer, Leukemia, Lung Cancer, Ovarian Cancer GI Medical History: Reports: Diverticulitis, Gastroesophageal Reflux Disease Denies: Crohn's Disease, Hiatal Hernia Musculoskeltal Medical History: Reports: Arthritis, Gout Denies: Fibromyalgia Psychiatric Medical History: Reports: Depression Denies: Bipolar Disorder, Dementia, Post Traumatic Stress Disorder Hematology: Reports: Anemia Denies: Hemophilia, Sickle Cell Disease Infectious Medical History: Denies: HIV Past Surgical History Past Surgical History: Reports: Appendectomy, Cholecystectomy, Herniorrhaphy, Hysterectomy, Pacemaker, Other - Previous EGDs and colonoscopies, breast lumpectomy Denies: Amputation, Section, Colostomy, Coronary Artery Bypass Graft , Gastric Bypass Surgery, Mastectomy, Tonsillectomy, Tubal Ligation Social History Lives with: Family Smoking Status: Never Smoker Frequency of Alcohol Use: None Hx Recreational Drug Use: No Drugs: None Hx Prescription Drug Abuse: No Family History Family History: Reviewed & Not Pertinent, CAD, DM, Hyperlipidemia, Hypertension Parental Family History Reviewed: Yes Children Family History Reviewed: Yes Sibling(s) Family History Reviewed.: Yes Medication/Allergy Home Medications: Allopurinol [Zyloprim 100 mg Tablet] 100 mg PO DAILY 12/19/16 Anastrozole [Arimidex 1 mg Tablet] 1 mg PO DAILY 12/19/16 Ascorbic Acid [Vitamin C 500 mg Tablet] 500 mg PO DAILY 12/19/16 Aspirin [Aspirin EC] 81 mg PO DAILY 12/19/16 Carvedilol [Coreg 25 mg Tablet] 25 mg PO Q12 12/19/16 Cetirizine HCl [Zyrtec 10 mg Tablet] 10 mg PO DAILYP PRN 12/19/16 Famotidine [Pepcid 20 mg Tablet] 20 mg PO Q12 12/19/16 Fenofibrate Nanocrystallized [Triglide] 160 mg PO DAILY 12/19/16 Fluticasone Propionate [Flonase Nasal Call 50 Mcg/Call 16 gm] 1 spray NASL Q12 12/19/16 Hydrocodone Bit/Acetaminophen [Hydrocodon-Acetaminophn 10-325] 1 tab PO QIDP PRN 12/19/16 Isosorbide Mononitrate [Isosorbide Mononitrate ER] 120 mg PO QHS 12/19/16 Magnesium Oxide [Mag-Ox 400 mg Tablet] 400 mg PO TID 12/19/16 Nitroglycerin [Nitrostat] 0.4 mg SL Q5MP PRN 12/19/16 [place]-3 Acid Ethyl Esters [Lovaza 1 gm Capsule] 2 gm PO BID 12/19/16 Ondansetron HCl [Zofran 8 mg Tablet] 8 mg PO Q8HP PRN 12/19/16 Paroxetine HCl [Paxil 20 mg Tablet] 20 mg PO QAM 12/19/16 Potassium Chloride [K-Tab ER] 20 meq PO BID 12/19/16 Rosuvastatin Calcium [Crestor 10 mg Tablet] 10 mg PO DAILY 12/19/16 Simethicone [Mylicon 80 mg Chewable Tablet] 80 mg PO Q6HP PRN 12/19/16 Torsemide [Demadex 20 mg Tablet] 40 mg PO BID 12/19/16 Amlodipine Besylate [Norvasc 10 mg Tablet] 10 mg PO DAILY #30 tablet 12/23/16 Gabapentin [Neurontin 100 mg Capsule] 100 mg PO QHS #30 capsule 12/23/16 Albuterol Sulfate [Ventolin 0.083% Neb 2.5 mg/3 mL Ampul] 3 ml NEB RTQ3HP PRN Diltiazem HCl [Cardizem Cd 240 mg Capsule.cr] 240 mg PO Q12 01/08/17 Hum Insulin NPH/Reg Insulin Hm [Insulin 70-30 (NPH/Reg) 100 unit/mL] 20 unit SQ ACSUPPER 01/08/17 Hum Insulin NPH/Reg Insulin Hm [Insulin 70-30 (NPH/Reg) 100 unit/mL] 30 unit SQ [id number] 01/08/17 Insulin Aspart [Novolog Flexpen] 0 unit SQ .PERSLIDINGSCALE 01/08/17 Metolazone [Zaroxolyn 2.5 mg Tablet] 2.5 mg PO DAILY 01/08/17 Allergies/Adverse Reactions: codeine [Codeine] Allergy (Severe, Verified 09/29/16 09:18) Hospitalized Penicillins Allergy (Severe, Verified 09/29/16 09:18) Redness, heat, swelling at site promethazine HCl [From Phenergan] Allergy (Unknown, Verified 09/29/16 09:18) PROBLEMS WITH LEGS Sulfa (Sulfonamide Antibiotics) Allergy (Unknown, Verified 09/29/16 09:18) Unknown reaction hydralazine HCl [From Apresoline] Adverse Reaction (Severe, Verified 09/29/16 09 :18) Cardiac arrest atorvastatin calcium [From Lipitor] Adverse Reaction (Verified 09/29/16 09:18) IV Contrast Allergy (Severe, Uncoded 09/29/16 09:18) ESRD Physical Exam Vital Signs: Temp Pulse Resp BP Pulse Ox 98.0 F 60 28 H 131/52 H 94 01/09/17 08:00 01/09/17 18:37 01/09/17 16:35 01/09/17 18:00 01/09/17 16:35 Intake & Output 01/08/17 01/09/17 01/10/17 06:59 06:59 06:59 Intake Total 453 800 Output Total 2400 1000 Balance -1947 -200 Weight 70.8 kg Exam: GENERAL: well-nourished but in mild respiratory distress. Alert and oriented x3 HEAD: Atraumatic, normocephalic. EYES: Pupils equal round and reactive to light, extraocular movements intact, sclera anicteric, conjunctiva are normal. ENT: TMs normal, nares patent, oropharynx clear without exudates. Moist mucous membranes. No oral ulcerations or bleeding gums noted NECK: supple without lymphadenopathy. Trachea is central. No cervical or axillary lymphadenopathy noted. Carotids are 2+, JVD 10-12 cm LUNGS: Respiration seems mildly labored. Bibasilar fine crackles are noted. Mild dullness noted both bases. CHEST: Palpation of the chest wall shows no significant chest wall tenderness. No other significant abnormalities noted. Pacemaker noted on the left side chest. HEART: [place] [employer]ER, No PSH, 2-3/6 [place] aortic area, 1-2/6 perdue systolic murmur mitral area, no rubs, no gallops. ABDOMEN: Soft, no significant tenderness appreciated, normoactive bowel sounds. No guarding, no rebound. No rigidity noted . No masses appreciated. EXTREMITIES: Pedal pulses are 1-2+, no calf tenderness noted. No clubbing or cyanosis. 1-2 + pedal edema noted NEUROLOGICAL: Focused neurological exam showed no significant neurologic deficit. Normal speech, no focal weakness appreciated. PSYCH: Normal mood, normal affect. Judgment and insight within normal limits. SKIN: No significant ecchymosis, rash, ulcerations or signs of pruritus noted. MUSCULOSKELETAL EXAM: No significant joint swelling noted. Results Laboratory Results: 01/09/17 06:42 01/09/17 06:42 WBC 3.8 L RBC 2.76 L Hgb 8.0 L Hct 25.0 L MCV 91 MCH 29.0 MCHC 32.0 RDW 16.7 H Plt Count 165 Seg Neutrophils % 79.0 H Lymphocytes % 14.4 Monocytes % 6.2 Eosinophils % 0.0 Basophils % 0.4 Absolute Neutrophils 3.0 Absolute Lymphocytes 0.5 Absolute Monocytes 0.2 Absolute Eosinophils 0.0 Absolute Basophils 0.0 01/08/17 01/08/17 01/08/17 17:55 17:55 23:59 Creatine Kinase < 20 L < 20 L CK-MB (CK-2) 0.64 Troponin I 0.028 01/08/17 01/09/17 01/09/17 23:59 06:42 06:42 Creatine Kinase < 20 L CK-MB (CK-2) 0.55 0.56 Troponin I 0.058 0.137 EKG Comments: Shows AV paced rhythm Impressions: Chest X-Ray 01/08/17 10:32 IMPRESSION: CARDIOMEGALY WITH VASCULAR CONGESTION. INCREASING LEFT PLEURAL EFFUSION WITH BASILAR ATELECTASIS. Assessment & Plan - Diagnosis (1) Acute on chronic congestive heart failure Qualifiers: Congestive heart failure type: combined Qualified Code(s): I50.43 - Acute on chronic combined systolic (congestive) and diastolic (congestive) heart failure Is this a current diagnosis for this admission?: Yes (2) Elevated troponin I level Is this a current diagnosis for this admission?: Yes (3) Acute on chronic respiratory failure with hypoxemia Is this a current diagnosis for this admission?: Yes (4) COPD (chronic obstructive pulmonary disease) Qualifiers: COPD type: emphysema Emphysema type: unspecified Qualified Code(s) : J43.9 - Emphysema, unspecified Is this a current diagnosis for this admission?: Yes (5) Hypertension Qualifiers: Hypertension type: essential hypertension Qualified Code(s): I10 - Essential (primary) hypertension Is this a current diagnosis for this admission?: Yes (6) Renal insufficiency Is this a current diagnosis for this admission?: Yes (7) Pacemaker Is this a current diagnosis for this admission?: Yes (8) Valvular heart disease Is this a current diagnosis for this admission?: Yes - Notes Notes: Acute on chronic congestive heart failure: Patient has a history of chronic congestive heart failure. There is acute exacerbation. Possibly related to volume overload. CHF related to systolic plus diastolic dysfunction as well as valvular heart disease contribution. On recent echocardiogram patient was noted to have moderate to severe mitral regurgitation. Elevated troponin I: Most likely related to CHF, severe hypoxemia rather than acute coronary syndrome. Patient also has chronic kidney disease. Acute on chronic respiratory failure with hypoxemia: Patient was noted to have severely reduced O2 sat in the ER. Currently on CPAP therapy. Hypertension: Currently stable. Renal insufficiency: Patient has at least stage III chronic kidney disease. Valvular heart disease: Currently is stable but feel that patient may need to be evaluated better for mitral valve regurgitation and if mitral valve repair/ replacement is going to help her. We did talk with patient's primary farm planner regarding this. - Time Time Spent: 30 to 50 Minutes - CODE STATUS was discussed, patient remains full code. Surrogate decision-maker patient's . Multiple medical problems were addressed. More than 50% of the time spent coordinating care, discussing management plans with involved caregivers. Management plans discussed with involved personnels. Medical decision making was of moderate to high complexity , patient's has multiple comorbidities. Medications reviewed and adjusted accordingly: Yes
[2017-01-09] MEDS: ISOSORBIDE MONONITRATE 60 MG TAB.ER.24H PO SCH (21:17)
[2017-01-09] MEDS: GABAPENTIN 100 MG CAPSULE PO SCH (21:17)
[2017-01-09] MEDS: ATORVASTATIN CALCIUM 20 MG TABLET PO SCH (21:18)
[2017-01-10 05:09] LABS: ABSOLUTE EOSINOPHILS # (AUTO) 0.1 10^3/uL (0.0-0.6); ABSOLUTE LYMPHOCYTES (AUTO) 1.1 10^3/uL (0.5-4.7); ABSOLUTE MONOCYTES (AUTO) 0.4 10^3/uL (0.1-1.4); ABSOLUTE NEUT (AUTO) 3.5 10^3/uL (1.7-8.2); BASOPHILS % (AUTO) 0.7 % (0-2); EOSINOPHILS % (AUTO) 1.7 % (0-6); HEMATOCRIT 25.8 % (36.0-47.0); HEMOGLOBIN 8.5 g/dL (12.0-15.5); HGB HCT DIFFERENCE -0.3; LYMPHOCYTES % (AUTO) 21.2 % (13-45); MEAN CORPUSCULAR HEMOGLOBIN 29.8 pg (27.0-33.4); MEAN CORPUSCULAR VOLUME 90 fl (80-97); RED BLOOD COUNT 2.85 10^6/uL (3.72-5.28); RED CELL DISTRIBUTION WIDTH 16.8 % (11.5-14.0); SEGMENTED NEUTROPHILS % (AUTO) 69.4 % (42-78); WHITE BLOOD COUNT 5.1 10^3/uL (4.0-10.5)
[2017-01-10 05:29] LABS: ANION GAP 9 (5-19); BLOOD UREA NITROGEN 70 mg/dL (7-20); CALCIUM 10.8 mg/dL (8.4-10.2); CARBON DIOXIDE 36 mmol/L (22-30); CHLORIDE 95 mmol/L (98-107); CREATININE RESULT 1.85 mg/dL (0.52-1.25); GLUCOSE 143 mg/dL (75-110); POTASSIUM 3.5 mmol/L (3.6-5.0); SODIUM 140.1 mmol/L (137-145)
[2017-01-10] MEDS: ENOXAPARIN SODIUM INJ 30 MG/0.3 ML DISP.SYRIN SUBCUT SCH (10:34)
[2017-01-10] MEDS: FUROSEMIDE INJ/PF 40 MG/4 ML SDV IV SCH ×2 (10:34→21:47)
[2017-01-10] MEDS: ANASTROZOLE 1 MG TABLET PO SCH (10:35)
[2017-01-10] MEDS: CARVEDILOL 12.5 MG TABLET PO SCH ×2 (10:36→21:48)
[2017-01-10] MEDS: ASPIRIN 81 MG TABLET, ENT COATED PO SCH (10:36)
[2017-01-10] MEDS: MAGNESIUM OXIDE 400 MG TABLET PO SCH ×3 (10:37→17:31)
[2017-01-10] MEDS: OMEGA-3 ACID ETHYL ESTERS 1 GM CAPSULE PO SCH ×2 (10:37→17:31)
[2017-01-10] MEDS: FAMOTIDINE 20 MG TABLET PO SCH (10:37)
[2017-01-10] MEDS: PAROXETINE HCL 20 MG TABLET PO SCH (10:37)
[2017-01-10] MEDS: METOLAZONE 2.5 MG TABLET PO SCH (10:38)
[2017-01-10] MEDS: DILTIAZEM HCL 240 MG CAPSULE.CR PO SCH ×2 (10:38→21:48)
[2017-01-10] MEDS: ALLOPURINOL 100 MG TABLET PO SCH (10:38)
[2017-01-10] MEDS: AMLODIPINE BESYLATE 10 MG TABLET PO SCH (10:39)
[2017-01-10] MEDS: POTASSIUM CHLORIDE 10 MEQ TABLET.SA PO SCH ×2 (10:40→17:31)
[2017-01-10] MEDS: FLUTICASONE NASAL SPRAY 50 MCG/SPRY 120 SPRAY/16 GM NASL SCH ×2 (10:40→21:49)
[2017-01-10] MEDS: HYDROCODONE/ACETAMINOPHEN 10-325 MG TABLET PO PRN ×2 (10:42→18:42)
[2017-01-10 10:44] LABS: TROPONIN I 0.137 ng/mL
--- NOTE | 2017-01-10 11:18 | PDOC PROGRESS REPORT ---
Subjective Subjective:: JACINTA LUNSFORD is an 81 year old female with multiple medical problems including diastolic congestive heart failure, chronic kidney disease, COPD, mitral regurgitation, and obesity. She has had numerous hospitalizations over the past 5 years. Medication management has been difficult because of her cardiorenal syndrome. She is followed by Dr. Erazo for cardiology and Dr. De Luna for nephrology. She presented 01/08/2017 with increased work of breathing. The chest x-ray showed vascular congestion. While getting up to the commode in the emergency department she had an oxygen desaturation into the 80s, and then into the 60s. She received a dose of Lasix and began diuresing. She had a nebulizer treatment and this also seemed to help. She denied chest pain. When I saw her in the emergency department she was wearing BiPAP. She confirmed a DO NOT INTUBATE status. The patient was admitted to the intermediate ICU for further evaluation and treatment. She has continued to diurese. Total fluid balance is -3.5L. She remains on BiPAP but requests that it be removed. Cardiology is following and await Nephro consultation. Physical Exam Vital Signs: Temp Pulse Resp BP Pulse Ox 97.7 F 60 20 156/52 H 96 01/10/17 07:46 01/10/17 07:46 01/10/17 07:46 01/10/17 07:46 01/10/17 07:46 Intake & Output 01/09/17 01/10/17 01/11/17 06:59 06:59 06:59 Intake Total 453 1082 Output Total 2400 2700 Balance -1947 -8 Weight 70.8 kg 70.4 kg Additional comments: General appearance: PRESENT: morbidly obese, other - mild distress, remains on BiPAP Head exam: PRESENT: atraumatic, normocephalic Eye exam: PRESENT: conjunctiva pink, EOMI, PERRLA. ABSENT: scleral icterus Ear exam: PRESENT: normal external ear exam Mouth exam: PRESENT: moist, tongue midline Neck exam: ABSENT: carotid bruit, lymphadenopathy, thyromegaly Respiratory exam: PRESENT: less accessory muscle use, slightly better air movement, wheezes. ABSENT: rhonchi Cardiovascular exam: PRESENT: RRR. ABSENT: diastolic murmur, rubs, systolic murmur Pulses: PRESENT: normal dorsalis pedis pul Vascular exam: PRESENT: normal capillary refill GI/Abdominal exam: PRESENT: normal bowel sounds, soft. ABSENT: distended, guarding, mass, organolmegaly, rebound, tenderness Rectal exam: PRESENT: deferred Extremities exam: PRESENT: full ROM, +1 edema, other - changes of osteoarthritis. ABSENT: calf tenderness, clubbing, pedal edema Neurological exam: PRESENT: alert, awake, oriented to person, oriented to place , CN II-XII grossly intact. ABSENT: motor sensory deficit Psychiatric exam: PRESENT: appropriate affect. ABSENT: homicidal ideation, suicidal ideation Skin exam: PRESENT: dry, intact, warm. ABSENT: cyanosis, rash Results Laboratory Results: 01/10/17 04:39 01/10/17 04:39 01/10/17 01/10/17 04:39 04:39 WBC 5.1 RBC 2.85 L Hgb 8.5 L Hct 25.8 L MCV 90 MCH 29.8 MCHC 33.0 RDW 16.8 H Plt Count 168 Seg Neutrophils % 69.4 Lymphocytes % 21.2 Monocytes % 7.0 Eosinophils % 1.7 Basophils % 0.7 Absolute Neutrophils 3.5 Absolute Lymphocytes 1.1 Absolute Monocytes 0.4 Absolute Eosinophils 0.1 Absolute Basophils 0.0 Sodium 140.1 Potassium 3.5 L Chloride 95 L Carbon Dioxide 36 H Anion Gap 9 BUN 70 H Creatinine 1.85 H Est GFR ( Amer) 32 L Est GFR (Non-Af Amer) 26 L Glucose 143 H Calcium 10.8 H 01/08/17 01/08/17 01/08/17 17:55 17:55 23:59 Creatine Kinase < 20 L < 20 L CK-MB (CK-2) 0.64 Troponin I 0.028 01/08/17 01/09/17 01/09/17 23:59 06:42 06:42 Creatine Kinase < 20 L CK-MB (CK-2) 0.55 0.56 Troponin I 0.058 0.137 Impressions: Chest X-Ray 01/08/17 10:32 IMPRESSION: CARDIOMEGALY WITH VASCULAR CONGESTION. INCREASING LEFT PLEURAL EFFUSION WITH BASILAR ATELECTASIS. Assessment & Plan - Diagnosis (1) Acute on chronic diastolic (congestive) heart failure Is this a current diagnosis for this admission?: YesPlan: Continue Lasix. Effective diuresis. Continue Lasix 40 mg IV Q12H, Zaroxolyn, Coreg, Imdur. Continue to monitor her clinical status and laboratories in view of her severe kidney disease. Cardiology following. (2) Chronic kidney disease, stage IV (severe) Is this a current diagnosis for this admission?: YesPlan: Continue to monitor her renal function studies. Awaiting Dr. De Luna, Nephrology consultation. (3) Cardiorenal syndrome with renal failure Is this a current diagnosis for this admission?: Yes (4) COPD (chronic obstructive pulmonary disease) Qualifiers: COPD type: emphysema Emphysema type: unspecified Qualified Code(s) : J43.9 - Emphysema, unspecified Is this a current diagnosis for this admission?: YesPlan: She seemed to respond to a breathing treatment in the emergency department. Continuing with nebulized bronchodilators. (5) Acute on chronic respiratory failure with hypoxemia Is this a current diagnosis for this admission?: YesPlan: Oxygen supplementation as needed. (6) Mitral regurgitation Qualifiers: Cardiac valve disease etiology: nonrheumatic Qualified Code(s): I34.0 - Nonrheumatic mitral (valve) insufficiency Is this a current diagnosis for this admission?: YesPlan: Dr. Porter discussed options with patient and . (7) Pulmonary hypertension Is this a current diagnosis for this admission?: Yes (8) Essential hypertension Is this a current diagnosis for this admission?: YesPlan: BP in satisfactory range. Continuing home medications and monitoring. (9) Diabetes mellitus type 2 Is this a current diagnosis for this admission?: YesPlan: Glucose 143 this AM. Continue home medications and to monitor. (10) Cardiac pacemaker in situ Is this a current diagnosis for this admission?: Yes (11) Generalized weakness Is this a current diagnosis for this admission?: YesPlan: PT when able, not just yet.
[2017-01-10] MEDS: INSULIN LISPRO 100 UNIT/ML 3 ML VIAL SUBCUT PRN ×2 (17:55→21:56)
--- NOTE | 2017-01-10 18:38 | PDOC PROGRESS REPORT ---
Subjective Progress Note for:: 01/10/17 Subjective:: Patient seems to be doing better with gradual improvement. Patient however still significantly short of breath but is able to lay flat in bed. Currently wearing positive pressure ventilation mask. Patient had good urine output overnight. Pt is denying any chest arm or neck discomfort. Patient denying any PND, orthopnea. Patient denied any sustained palpitations, dizziness, syncope, near syncope. Patient denying any fever chills. Patient denying any other significant discomfort. Patient is maintaining AV paced rhythm. Review of systems: Rest review of systems negative. Medications: Medications have been reviewed. Physical Exam Vital Signs: Temp Pulse Resp BP Pulse Ox 97.7 F 60 25 H 133/46 H 95 01/10/17 15:40 01/10/17 15:40 01/10/17 16:40 01/10/17 15:40 01/10/17 15:40 Intake & Output 01/09/17 01/10/17 01/11/17 06:59 06:59 06:59 Intake Total 453 1082 120 Output Total 2400 2700 1000 Balance -1947 -1618 -880 Weight 70.8 kg 70.4 kg Exam: GENERAL: well-nourished and in no acute distress. Alert and oriented x3 HEAD: Atraumatic, normocephalic. EYES: Pupils equal round and reactive to light, extraocular movements intact, sclera anicteric, conjunctiva are normal. ENT: TMs normal, nares patent, oropharynx clear without exudates. Moist mucous membranes. No oral ulcerations or bleeding gums noted NECK: supple without lymphadenopathy. Trachea is central. No cervical or axillary lymphadenopathy noted. Carotids are 2+, JVD WNL LUNGS: Respiration seems nonlabored, no significant accessory muscle action noted. Bibasilar fine crackles are noted. No wheezes rales or rhonchi noted. No significant dullness noted on percussion. CHEST: Palpation of the chest wall shows no significant chest wall tenderness. No other significant abnormalities noted. HEART: [place] [employer]IST, No PSH, 2/6 [place] aortic area, 2-3/6 perdue systolic murmur mitral area, no rubs, no gallops. ABDOMEN: Soft, no significant tenderness appreciated, normoactive bowel sounds. No guarding, no rebound. No rigidity noted . No masses appreciated. EXTREMITIES: Pedal pulses are 1-2+, no calf tenderness noted. No clubbing or cyanosis. 1-2 + pedal edema noted NEUROLOGICAL: Focused neurological exam showed no significant neurologic deficit. Normal speech, no focal weakness appreciated. PSYCH: Normal mood, normal affect. Judgment and insight within normal limits. SKIN: No significant ecchymosis, rash, ulcerations or signs of pruritus noted. MUSCULOSKELETAL EXAM: No significant joint swelling noted. Results Laboratory Results: 01/10/17 04:39 01/10/17 04:39 01/10/17 01/10/17 04:39 04:39 WBC 5.1 RBC 2.85 L Hgb 8.5 L Hct 25.8 L MCV 90 MCH 29.8 MCHC 33.0 RDW 16.8 H Plt Count 168 Seg Neutrophils % 69.4 Lymphocytes % 21.2 Monocytes % 7.0 Eosinophils % 1.7 Basophils % 0.7 Absolute Neutrophils 3.5 Absolute Lymphocytes 1.1 Absolute Monocytes 0.4 Absolute Eosinophils 0.1 Absolute Basophils 0.0 Sodium 140.1 Potassium 3.5 L Chloride 95 L Carbon Dioxide 36 H Anion Gap 9 BUN 70 H Creatinine 1.85 H Est GFR ( Amer) 32 L Est GFR (Non-Af Amer) 26 L Glucose 143 H Calcium 10.8 H 01/08/17 01/08/17 01/08/17 17:55 17:55 23:59 Creatine Kinase < 20 L < 20 L CK-MB (CK-2) 0.64 Troponin I 0.028 01/08/17 01/09/17 01/09/17 23:59 06:42 06:42 Creatine Kinase < 20 L CK-MB (CK-2) 0.55 0.56 Troponin I 0.058 0.137 Impressions: Chest X-Ray 01/08/17 10:32 IMPRESSION: CARDIOMEGALY WITH VASCULAR CONGESTION. INCREASING LEFT PLEURAL EFFUSION WITH BASILAR ATELECTASIS. Assessment & Plan - Diagnosis (1) Acute on chronic congestive heart failure Qualifiers: Congestive heart failure type: combined Qualified Code(s): I50.43 - Acute on chronic combined systolic (congestive) and diastolic (congestive) heart failure Is this a current diagnosis for this admission?: Yes (2) Elevated troponin I level Is this a current diagnosis for this admission?: Yes (3) Acute on chronic respiratory failure with hypoxemia Is this a current diagnosis for this admission?: Yes (4) COPD (chronic obstructive pulmonary disease) Qualifiers: COPD type: emphysema Emphysema type: unspecified Qualified Code(s) : J43.9 - Emphysema, unspecified Is this a current diagnosis for this admission?: Yes (5) Hypertension Qualifiers: Hypertension type: essential hypertension Qualified Code(s): I10 - Essential (primary) hypertension Is this a current diagnosis for this admission?: Yes (6) Renal insufficiency Is this a current diagnosis for this admission?: Yes (7) Pacemaker Is this a current diagnosis for this admission?: Yes (8) Valvular heart disease Is this a current diagnosis for this admission?: Yes - Notes Notes: Acute on chronic congestive heart failure: Patient has a history of chronic congestive heart failure. There is acute exacerbation. Possibly related to volume overload. CHF related to systolic plus diastolic dysfunction as well as valvular heart disease contribution. On recent echocardiogram patient was noted to have moderate to severe mitral regurgitation. Patient on IV diuretic therapy and has had good urine output. This has improved. Elevated troponin I: Most likely related to CHF, severe hypoxemia rather than acute coronary syndrome. Patient also has chronic kidney disease. Acute on chronic respiratory failure with hypoxemia: Patient was noted to have severely reduced O2 sat in the ER. Currently on CPAP therapy. Hypertension: Currently stable. Renal insufficiency: Patient has at least stage III chronic kidney disease. Valvular heart disease: Patient was noted to have moderate to severe, possibly severe mitral regurgitation on last echocardiogram. Currently is stable but feel that patient may need to be evaluated better for mitral valve regurgitation and if mitral valve repair/replacement is going to help her. Patient was offered transfer to tertiary care for possible mitral valve clip, mitral valve surgery etc however she wished to talk with Dr. Chinchilla who will be covering tomorrow. - Time Time with patient: Greater than 35 minutes - CODE STATUS : was discussed, patient remains DO NOT RESUSCITATE. Surrogate decision-maker patient hasband. Multiple medical problems were addressed. More than 50% of the time spent coordinating care, discussing management plans with involved caregivers. Management plans discussed with involved personnels. Medical decision making was of moderate to high complexity, patient's has multiple comorbidities. Medications reviewed and adjusted accordingly: Yes
[2017-01-10] MEDS: ISOSORBIDE MONONITRATE 60 MG TAB.ER.24H PO SCH (21:48)
[2017-01-10] MEDS: GABAPENTIN 100 MG CAPSULE PO SCH (21:48)
[2017-01-10] MEDS: ATORVASTATIN CALCIUM 20 MG TABLET PO SCH (21:49)
[2017-01-11 06:19] LABS: ABSOLUTE EOSINOPHILS # (AUTO) 0.1 10^3/uL (0.0-0.6); ABSOLUTE LYMPHOCYTES (AUTO) 0.7 10^3/uL (0.5-4.7); ABSOLUTE MONOCYTES (AUTO) 0.3 10^3/uL (0.1-1.4); ABSOLUTE NEUT (AUTO) 4.4 10^3/uL (1.7-8.2); BASOPHILS % (AUTO) 0.5 % (0-2); EOSINOPHILS % (AUTO) 1.9 % (0-6); HEMATOCRIT 26.6 % (36.0-47.0); HEMOGLOBIN 8.9 g/dL (12.0-15.5); HGB HCT DIFFERENCE 0.1; LYMPHOCYTES % (AUTO) 13.1 % (13-45); MEAN CORPUSCULAR HEMOGLOBIN 30.2 pg (27.0-33.4); MEAN CORPUSCULAR HGB CONC 33.7 g/dL (32.0-36.0); MEAN CORPUSCULAR VOLUME 90 fl (80-97); MONOCYTES % (AUTO) 6.1 % (3-13); RED BLOOD COUNT 2.96 10^6/uL (3.72-5.28); RED CELL DISTRIBUTION WIDTH 16.7 % (11.5-14.0); SEGMENTED NEUTROPHILS % (AUTO) 78.4 % (42-78); WHITE BLOOD COUNT 5.6 10^3/uL (4.0-10.5)
[2017-01-11 06:31] LABS: ANION GAP 12 (5-19); BLOOD UREA NITROGEN 67 mg/dL (7-20); CALCIUM 10.9 mg/dL (8.4-10.2); CARBON DIOXIDE 35 mmol/L (22-30); CHLORIDE 92 mmol/L (98-107); CREATININE RESULT 1.67 mg/dL (0.52-1.25); GLUCOSE 162 mg/dL (75-110); POTASSIUM 3.5 mmol/L (3.6-5.0); SODIUM 139.4 mmol/L (137-145)
[2017-01-11] MEDS: INSULIN LISPRO 100 UNIT/ML 3 ML VIAL SUBCUT PRN ×4 (08:34→22:18)
[2017-01-11] MEDS: PAROXETINE HCL 20 MG TABLET PO SCH (08:34)
[2017-01-11] MEDS: ENOXAPARIN SODIUM INJ 30 MG/0.3 ML DISP.SYRIN SUBCUT SCH (08:34)
[2017-01-11] MEDS: HYDROCODONE/ACETAMINOPHEN 10-325 MG TABLET PO PRN ×3 (08:43→22:22)
[2017-01-11] MEDS: ALBUTEROL SULFATE 0.083% NEB 2.5 MG/3 ML AMPUL NEB PRN (09:15)
[2017-01-11] MEDS: FLUTICASONE NASAL SPRAY 50 MCG/SPRY 120 SPRAY/16 GM NASL SCH ×2 (09:41→22:29)
[2017-01-11] MEDS: OMEGA-3 ACID ETHYL ESTERS 1 GM CAPSULE PO SCH ×2 (09:42→17:44)
[2017-01-11] MEDS: METOLAZONE 2.5 MG TABLET PO SCH (09:43)
[2017-01-11] MEDS: CARVEDILOL 12.5 MG TABLET PO SCH ×2 (09:44→22:23)
[2017-01-11] MEDS: ALLOPURINOL 100 MG TABLET PO SCH (09:44)
[2017-01-11] MEDS: POTASSIUM CHLORIDE 10 MEQ TABLET.SA PO SCH ×2 (09:44→17:44)
[2017-01-11] MEDS: ASPIRIN 81 MG TABLET, ENT COATED PO SCH (09:44)
[2017-01-11] MEDS: AMLODIPINE BESYLATE 10 MG TABLET PO SCH (09:45)
[2017-01-11] MEDS: DILTIAZEM HCL 240 MG CAPSULE.CR PO SCH ×2 (09:45→22:23)
[2017-01-11] MEDS: MAGNESIUM OXIDE 400 MG TABLET PO SCH ×3 (09:45→17:44)
[2017-01-11] MEDS: FAMOTIDINE 20 MG TABLET PO SCH (09:45)
[2017-01-11] MEDS: FUROSEMIDE INJ/PF 40 MG/4 ML SDV IV SCH (09:46)
[2017-01-11] MEDS: ANASTROZOLE 1 MG TABLET PO SCH ×2 (09:59→22:21)
--- NOTE | 2017-01-11 13:45 | PDOC PROGRESS REPORT ---
Subjective Progress Note for:: 01/11/17 Subjective:: JACINTA LUNSFORD is an 81 year old female with multiple medical problems including diastolic congestive heart failure, chronic kidney disease, COPD, mitral regurgitation, and obesity. She has had numerous hospitalizations over the past 5 years. Medication management has been difficult because of her cardiorenal syndrome. She is followed by Dr. Jewell for cardiology and Dr. De Luna for nephrology. She presented 01/08/2017 with increased work of breathing. The chest x-ray showed vascular congestion. While getting up to the commode in the emergency department she had an oxygen desaturation into the 80s, and then into the 60s. She received a dose of Lasix and began diuresing. She had a nebulizer treatment and this also seemed to help. She denied chest pain. When I saw her in the emergency department she was wearing BiPAP. She confirmed a DO NOT INTUBATE status. The patient was admitted to the intermediate ICU for further evaluation and treatment. She has continued to diurese. Total fluid balance is -5.2L. She remains on BiPAP prn but is now tolerating nasal O2 for some time. Cardiology is following and await Nephro consultation. Physical Exam Vital Signs: Temp Pulse Resp BP Pulse Ox 98.3 F 60 22 H 136/50 H 99 01/11/17 10:46 01/11/17 10:46 01/11/17 10:46 01/11/17 10:46 01/11/17 10:46 Intake & Output 01/10/17 01/11/17 01/12/17 06:59 06:59 06:59 Intake Total 1082 1262 838 Output Total 2700 3000 550 Balance -1618 -1738 288 Weight 70.4 kg 70.9 kg Additional comments: General appearance: PRESENT: morbidly obese, other - mild distress, currently off BiPAP Head exam: PRESENT: atraumatic, normocephalic Eye exam: PRESENT: conjunctiva pink, EOMI, PERRLA. ABSENT: scleral icterus Ear exam: PRESENT: normal external ear exam Mouth exam: PRESENT: moist, tongue midline Neck exam: ABSENT: carotid bruit, lymphadenopathy, thyromegaly Respiratory exam: PRESENT: breathing comfortably, better air movement, forced expiratory wheezes. ABSENT: rhonchi Cardiovascular exam: PRESENT: RRR. ABSENT: diastolic murmur, rubs, systolic murmur Pulses: PRESENT: normal dorsalis pedis pul Vascular exam: PRESENT: normal capillary refill GI/Abdominal exam: PRESENT: normal bowel sounds, soft. ABSENT: distended, guarding, mass, organolmegaly, rebound, tenderness Rectal exam: PRESENT: deferred Extremities exam: PRESENT: full ROM, +1 edema, other - changes of osteoarthritis. ABSENT: calf tenderness, clubbing, pedal edema Neurological exam: PRESENT: alert, awake, oriented to person, oriented to place , CN II-XII grossly intact. ABSENT: motor sensory deficit Psychiatric exam: PRESENT: appropriate affect. ABSENT: homicidal ideation, suicidal ideation Skin exam: PRESENT: dry, intact, warm. ABSENT: cyanosis, rash Results Laboratory Results: 01/11/17 05:38 01/11/17 05:38 01/11/17 01/11/17 05:38 05:38 WBC 5.6 RBC 2.96 L Hgb 8.9 L Hct 26.6 L MCV 90 MCH 30.2 MCHC 33.7 RDW 16.7 H Plt Count 168 Seg Neutrophils % 78.4 H Lymphocytes % 13.1 Monocytes % 6.1 Eosinophils % 1.9 Basophils % 0.5 Absolute Neutrophils 4.4 Absolute Lymphocytes 0.7 Absolute Monocytes 0.3 Absolute Eosinophils 0.1 Absolute Basophils 0.0 Sodium 139.4 Potassium 3.5 L Chloride 92 L Carbon Dioxide 35 H Anion Gap 12 BUN 67 H Creatinine 1.67 H Est GFR ( Amer) 36 L Est GFR (Non-Af Amer) 29 L Glucose 162 H Calcium 10.9 H 01/08/17 01/08/17 01/08/17 17:55 17:55 23:59 Creatine Kinase < 20 L < 20 L CK-MB (CK-2) 0.64 Troponin I 0.028 01/08/17 01/09/17 01/09/17 23:59 06:42 06:42 Creatine Kinase < 20 L CK-MB (CK-2) 0.55 0.56 Troponin I 0.058 0.137 Impressions: Chest X-Ray 01/08/17 10:32 IMPRESSION: CARDIOMEGALY WITH VASCULAR CONGESTION. INCREASING LEFT PLEURAL EFFUSION WITH BASILAR ATELECTASIS. Assessment & Plan - Diagnosis (1) Acute on chronic diastolic (congestive) heart failure Is this a current diagnosis for this admission?: YesPlan: Switch from IV to p.o. Lasix. Effective diuresis. Continue Zaroxolyn, Coreg, Imdur. Continue to monitor her clinical status and laboratories in view of her severe kidney disease. Cardiology following. (2) Chronic kidney disease, stage IV (severe) Is this a current diagnosis for this admission?: YesPlan: Her renal function studies are slightly higher today. Will continue to monitor. As above, switching from IV to p.o. Lasix. Awaiting Dr. De Luna, Nephrology consultation. (3) Cardiorenal syndrome with renal failure Is this a current diagnosis for this admission?: Yes (4) COPD (chronic obstructive pulmonary disease) Qualifiers: COPD type: emphysema Emphysema type: unspecified Qualified Code(s) : J43.9 - Emphysema, unspecified Is this a current diagnosis for this admission?: YesPlan: She seemed to respond to a breathing treatment in the emergency department. Continuing with nebulized bronchodilators. (5) Acute on chronic respiratory failure with hypoxemia Is this a current diagnosis for this admission?: YesPlan: Oxygen supplementation as needed. (6) Mitral regurgitation Qualifiers: Cardiac valve disease etiology: nonrheumatic Qualified Code(s): I34.0 - Nonrheumatic mitral (valve) insufficiency Is this a current diagnosis for this admission?: YesPlan: Dr. Porter discussed options with patient and . (7) Pulmonary hypertension Is this a current diagnosis for this admission?: Yes (8) Essential hypertension Is this a current diagnosis for this admission?: YesPlan: BP in satisfactory range. Continuing home medications and monitoring. (9) Diabetes mellitus type 2 Is this a current diagnosis for this admission?: YesPlan: Glucose 162 this AM. Continue home medications and to monitor. (10) Cardiac pacemaker in situ Is this a current diagnosis for this admission?: Yes (11) Generalized weakness Is this a current diagnosis for this admission?: YesPlan: PT when able, not just yet.
[2017-01-11 15:18] LABS: ANION GAP 10 (5-19); BLOOD UREA NITROGEN 70 mg/dL (7-20); CALCIUM 10.5 mg/dL (8.4-10.2); CARBON DIOXIDE 36 mmol/L (22-30); CHLORIDE 90 mmol/L (98-107); CREATININE RESULT 1.65 mg/dL (0.52-1.25); GLUCOSE 239 mg/dL (75-110); POTASSIUM 3.5 mmol/L (3.6-5.0); SODIUM 136.4 mmol/L (137-145)
[2017-01-11] MEDS: FUROSEMIDE 40 MG TABLET PO SCH (17:44)
--- NOTE | 2017-01-11 19:38 | PROGRESS NOTE E ---
Progress Note NAME: JACINTA LUNSFORD : 1935 AGE: 81Y DATE: 01/11/2017 ROOM: 332 Note that the patient was seen from 9:00 a.m. to 9:30 a.m. Thirty minutes were spent on this patient. SUBJECTIVE: The patient seems to be doing a little better. She is just mildly short of breath. She still cannot lie down flat for a long time. There is no PND. There is no chest pain. She continues to have some mild leg edema. There is no PND. The patient denies any palpitations. No TIA or CVA. She is off the positive pressure ventilation and is on nasal cannula now and seems to be comfortable. OBJECTIVE: VITAL SIGNS: On examination, the patient is afebrile with a temperature of 97.8 degrees Fahrenheit, pulse is 80 beats per minute, blood pressure is 136/53, respirations of are 20 per minute, O2 sats are 98% on 4 L nasal cannula. GENERAL: The patient is slightly overweight and does not seem to be in any major distress, although she says she has slight shortness of breath. HEAD: Her atraumatic, normocephalic. EYES: Pupils are equal, round, regular, and reactive to light and accommodation. Extraocular movements are normal. Sclerae are without any icterus and conjunctivae are pink. EARS, NOSE, THROAT, MOUTH: Tympanic membranes are normal. Nares are patent. Oropharynx is clear without exudates. Moist mucous membranes. No oral ulcerations or bleeding of the gums. NECK: Supple. There is no lymphadenopathy. Carotids are equal. There are bilateral carotid bruits present. JVD is within normal limits. LUNGS: Respirations seem to be nonlabored. There is no significant accessory muscles of respiration in use. There are bibasilar fine crackles noted. There is no wheezing. There are some rhonchi. HEART: S1, S2 heard. There is no S3 gallop. There is no S4 gallop. There is a systolic murmur in the left sternal border and the apex. There is a murmur of mitral regurgitation present and also of mild aortic stenosis present. There is no rub. ABDOMEN: Soft and nontender. There is no hepatosplenomegaly. Bowel sounds are well heard. There is no guarding, rebound, or rigidity. There are no masses. EXTREMITIES: Femoral pulses are mildly decreased. Femorals are mildly decreased. There are no femoral bruits. There is mild pedal edema. There is no DVT or cellulitis. There is no calf tenderness. CENTRAL NERVOUS SYSTEM: The patient is conscious, awake, alert, oriented x3 with no focal deficits. PSYCHIATRIC: The patient appears to be slightly depressed, but her judgment and insight are within normal limits. SKIN: There is no ecchymosis, rash, ulcerations, or signs of pruritus noted. INTAKE AND OUTPUT: The patient's 24-hour intake is 1,262 mL. Output is 3,000 mL. DIAGNOSTIC DATA: The patient's white count is 5,600; hemoglobin is 8.9; hematocrit is 26.6; platelet count is 168,000. The patient's sodium is 139.4, potassium is 3.5, chloride is 92, CO2 is 35. The patient's BUN is 67, creatinine is 1.67. GFR is reduced at 59, which is between stage 3-4 chronic kidney disease. Blood sugar is 162. Calcium is slightly elevated at 10.9. IMPRESSION: 1. ACUTE ON CHRONIC CONGESTIVE HEART FAILURE. THIS IS COMBINED SYSTOLIC AND DIASTOLIC HEART FAILURE SECONDARY TO VALVULAR DISEASE MITRAL REGURGITATION OF SIGNIFICANCE . 2. ELEVATED TROPONIN-I LEVEL. THIS IS SECONDARY TO CONGESTIVE HEART FAILURE AND ACUTE ON CHRONIC KIDNEY DISEASE. NO DEFINITE EVIDENCE OF [id number] HI. 3. CHRONIC RESPIRATORY FAILURE VIA HYPOXEMIA. THIS IS IMPROVED. 4. COPD, IMPROVING. CONTINUE OXYGEN AND DIURETICS. 5. HYPERTENSION. BLOOD PRESSURE IS WELL CONTROLLED. 6. CHRONIC KIDNEY DISEASE STAGE 3-4. 7. DUAL-CHAMBER PACE MAKER FOR COMPLETE HEART BLOCK IN THE PAST. 8. VALVULAR DISEASE WITH SIGNIFICANT MITRAL REGURGITATION AND MILD AORTIC STENOSIS. MENTIONED EARLIER, ON THE LAST ECHO, SHE WAS FOUND TO HAVE MODERATE TO SEVERE MITRAL REGURGITATION. THIS IS ALSO CONTRIBUTING TO HER ACUTE ON CHRONIC CONGESTIVE HEART FAILURE SECONDARY TO VOLUME OVERLOAD, CAUSING SYSTOLIC HEART FAILURE AND ALSO DIASTOLIC DYSFUNCTION. THE PATIENT IS ON DIURETIC THERAPY. THIS IS IMPROVED. ELEVATED TROPONIN-I MOST LIKELY RELATED TO CONGESTIVE HEART FAILURE AND SEVERE HYPOXEMIA RATHER THAN ACUTE CORONARY SYNDROME, CHRONIC KIDNEY DISEASE AT PRESENT BETWEEN STAGE 3-4. 9. DIABETES MELLITUS TYPE 2. INSULIN REQUIRING. 10. DEPRESSION. 11. HYPERLIPIDEMIA. PLAN: For valvular disease, continue current therapy. Will discuss with Henry to see if the patient will be a candidate for treatment of the mitral regurgitation, but this may end up with the patient needing dialysis. Will also discuss with the medical transcription editor. Continue her other medications, which are metolazone, continue Coreg, continue DVT prophylaxis with enoxaparin, continue aspirin and amlodipine. Note that the patient is on amlodipine and diltiazem. Will see if I can cut off one. Continue IV Lasix for her congestive heart failure. Please continue isosorbide mononitrate, which might help the volume overload. TIME SPENT: Note, 30 minutes were spent on this patient with more than 50% of time spent on direct patient care and also reviewing the patient's medications and discussions of plan of care with all the physicians involved in the case. DICTATING PHYSICIAN: KEN GIBSON M.D. [id number] PHY#: [id number] ID: [id number] JOB#: [id number] ACCT: [id number] cc: >
[2017-01-11] MEDS: ISOSORBIDE MONONITRATE 60 MG TAB.ER.24H PO SCH (22:22)
[2017-01-11] MEDS: GABAPENTIN 100 MG CAPSULE PO SCH (22:22)
[2017-01-11] MEDS: ATORVASTATIN CALCIUM 20 MG TABLET PO SCH (22:24)
[2017-01-12] MEDS: HYDROCODONE/ACETAMINOPHEN 10-325 MG TABLET PO PRN ×2 (04:30→19:46)
[2017-01-12] MEDS: PAROXETINE HCL 20 MG TABLET PO SCH (08:13)
[2017-01-12] MEDS: ENOXAPARIN SODIUM INJ 30 MG/0.3 ML DISP.SYRIN SUBCUT SCH (08:13)
[2017-01-12] MEDS: INSULIN LISPRO 100 UNIT/ML 3 ML VIAL SUBCUT PRN ×4 (08:13→22:47)
[2017-01-12] MEDS: ALBUTEROL SULFATE 0.083% NEB 2.5 MG/3 ML AMPUL NEB PRN (10:03)
[2017-01-12] MEDS: DILTIAZEM HCL 240 MG CAPSULE.CR PO SCH ×2 (10:14→22:50)
[2017-01-12] MEDS: OMEGA-3 ACID ETHYL ESTERS 1 GM CAPSULE PO SCH ×2 (10:14→17:35)
[2017-01-12] MEDS: FAMOTIDINE 20 MG TABLET PO SCH (10:14)
[2017-01-12] MEDS: METOLAZONE 2.5 MG TABLET PO SCH (10:14)
[2017-01-12] MEDS: FLUTICASONE NASAL SPRAY 50 MCG/SPRY 120 SPRAY/16 GM NASL SCH ×2 (10:14→22:51)
[2017-01-12] MEDS: ASPIRIN 81 MG TABLET, ENT COATED PO SCH (10:14)
[2017-01-12] MEDS: ALLOPURINOL 100 MG TABLET PO SCH (10:14)
[2017-01-12] MEDS: FUROSEMIDE 40 MG TABLET PO SCH ×3 (10:14→22:48)
[2017-01-12] MEDS: CARVEDILOL 12.5 MG TABLET PO SCH ×2 (10:15→22:49)
[2017-01-12] MEDS: MAGNESIUM OXIDE 400 MG TABLET PO SCH ×3 (10:15→17:35)
[2017-01-12] MEDS: POTASSIUM CHLORIDE 10 MEQ TABLET.SA PO SCH ×2 (10:15→17:35)
--- NOTE | 2017-01-12 11:13 | PDOC PROGRESS REPORT ---
Subjective Progress Note for:: 01/12/17 Subjective:: JACINTA LUNSFORD is an 81 year old female with multiple medical problems including diastolic congestive heart failure, chronic kidney disease, COPD, mitral regurgitation, and obesity. She has had numerous hospitalizations over the past 5 years. Medication management has been difficult because of her cardiorenal syndrome. She is followed by Dr. Jewell for cardiology and Dr. De Luna for nephrology. She presented 01/08/2017 with increased work of breathing. The chest x-ray showed vascular congestion. While getting up to the commode in the emergency department she had an oxygen desaturation into the 80s, and then into the 60s. She received a dose of Lasix and began diuresing. She had a nebulizer treatment and this also seemed to help. She denied chest pain. When I saw her in the emergency department she was wearing BiPAP. She confirmed a DO NOT INTUBATE status. The patient was admitted to the intermediate ICU for further evaluation and treatment. She diuresed well on IV Lasix. Rx changed to PO 01/11. Total fluid balance this admission is -4.6L. She remains on BiPAP prn but is now tolerating nasal O2 for some time. She is breathing much more easily. Cardiology is following and await Nephro consultation. The only new complaint is of mild abdominal distention and constipation. Physical Exam Vital Signs: Temp Pulse Resp BP Pulse Ox 97.4 F 62 18 141/50 H 95 01/12/17 07:11 01/12/17 10:03 01/12/17 10:03 01/12/17 07:11 01/12/17 10:03 Intake & Output 01/11/17 01/12/17 01/13/17 06:59 06:59 06:59 Intake Total 1262 2413 Output Total 3000 2955 Balance -1738 668 Weight 70.9 kg 70.8 kg Additional comments: General appearance: PRESENT: morbidly obese, other - mild distress, currently off BiPAP Head exam: PRESENT: atraumatic, normocephalic Eye exam: PRESENT: conjunctiva pink, EOMI, PERRLA. ABSENT: scleral icterus Ear exam: PRESENT: normal external ear exam Mouth exam: PRESENT: moist, tongue midline Neck exam: ABSENT: carotid bruit, lymphadenopathy, thyromegaly Respiratory exam: PRESENT: breathing comfortably, better air movement, forced expiratory wheezes. ABSENT: rhonchi Cardiovascular exam: PRESENT: RRR. ABSENT: diastolic murmur, rubs, systolic murmur Pulses: PRESENT: normal dorsalis pedis pul Vascular exam: PRESENT: normal capillary refill GI/Abdominal exam: PRESENT: normal bowel sounds, soft, slihgtly distended. ABSENT: guarding, mass, organolmegaly, rebound, tenderness Rectal exam: PRESENT: deferred Extremities exam: PRESENT: full ROM, +1 edema, other - changes of osteoarthritis. ABSENT: calf tenderness, clubbing, pedal edema Neurological exam: PRESENT: alert, awake, oriented to person, oriented to place , CN II-XII grossly intact. ABSENT: motor sensory deficit Psychiatric exam: PRESENT: appropriate affect. ABSENT: homicidal ideation, suicidal ideation Skin exam: PRESENT: dry, intact, warm. ABSENT: cyanosis, rash Results Laboratory Results: 01/11/17 05:38 01/11/17 14:53 01/11/17 14:53 Sodium 136.4 L Potassium 3.5 L Chloride 90 L Carbon Dioxide 36 H Anion Gap 10 BUN 70 H Creatinine 1.65 H Est GFR ( Amer) 36 L Est GFR (Non-Af Amer) 30 L Glucose 239 H Calcium 10.5 H 01/08/17 01/08/17 01/08/17 17:55 17:55 23:59 Creatine Kinase < 20 L < 20 L CK-MB (CK-2) 0.64 Troponin I 0.028 01/08/17 01/09/17 01/09/17 23:59 06:42 06:42 Creatine Kinase < 20 L CK-MB (CK-2) 0.55 0.56 Troponin I 0.058 0.137 Impressions: Chest X-Ray 01/08/17 10:32 IMPRESSION: CARDIOMEGALY WITH VASCULAR CONGESTION. INCREASING LEFT PLEURAL EFFUSION WITH BASILAR ATELECTASIS. Assessment & Plan - Diagnosis (1) Acute on chronic diastolic (congestive) heart failure Is this a current diagnosis for this admission?: YesPlan: On oral Lasix. Effective diuresis. Continue Zaroxolyn, Coreg, Imdur. Continue to monitor her clinical status and laboratories in view of her severe kidney disease. Cardiology following. (2) Chronic kidney disease, stage IV (severe) Is this a current diagnosis for this admission?: YesPlan: Her renal function studies are slightly higher today. Will continue to monitor. Has not been seen by Dr. De Luna, Nephrology, but renal function has remained stable. (3) Cardiorenal syndrome with renal failure Is this a current diagnosis for this admission?: Yes (4) COPD (chronic obstructive pulmonary disease) Qualifiers: COPD type: emphysema Emphysema type: unspecified Qualified Code(s) : J43.9 - Emphysema, unspecified Is this a current diagnosis for this admission?: YesPlan: She seemed to respond to a breathing treatment in the emergency department. Continuing with nebulized bronchodilators. (5) Acute on chronic respiratory failure with hypoxemia Is this a current diagnosis for this admission?: YesPlan: Oxygen supplementation as needed. (6) Mitral regurgitation Qualifiers: Cardiac valve disease etiology: nonrheumatic Qualified Code(s): I34.0 - Nonrheumatic mitral (valve) insufficiency Is this a current diagnosis for this admission?: YesPlan: Dr. Porter discussed options with patient and . (7) Pulmonary hypertension Is this a current diagnosis for this admission?: Yes (8) Essential hypertension Is this a current diagnosis for this admission?: YesPlan: BP in satisfactory range. Continuing home medications and monitoring. (9) Diabetes mellitus type 2 Is this a current diagnosis for this admission?: YesPlan: Glucose 162 this AM. Continue home medications and to monitor. (10) Cardiac pacemaker in situ Is this a current diagnosis for this admission?: Yes (11) Generalized weakness Is this a current diagnosis for this admission?: YesPlan: PT as able.
--- NOTE | 2017-01-12 11:23 | RADIOLOGY REPORT (SQ) ---
EXAM DESCRIPTION: CHEST SINGLE VIEW COMPLETED DATE/TIME: 01/12/2017 11:01 am REASON FOR STUDY: SOB /LLLbe bronchial Breath sounds COMPARISON: 01/08/2017. NUMBER OF VIEWS: One view. TECHNIQUE: Single frontal radiographic view of the chest acquired. LIMITATIONS: None. FINDINGS: LUNGS AND PLEURA: Increasing pleural effusion with basilar atelectasis/infiltrate. MEDIASTINUM AND HILAR STRUCTURES: No masses or contour abnormality. HEART AND VASCULATURE: Cardiac enlargement. Vascular congestion. BONES: No acute findings. Degenerative changes in the spine. HARDWARE: Pacemaker. Surgical clips in the soft tissues of the neck. OTHER: No other significant finding. IMPRESSION: CARDIAC ENLARGEMENT. VASCULAR CONGESTION. INCREASING PLEURAL EFFUSIONS WITH BASILAR AT ELECTASIS/INFILTRATE. TECHNICAL DOCUMENTATION: JOB ID: [id number] [employer]- All Rights Reserved
[2017-01-12] MEDS ORDERED: POLYETHYLENE GLYCOL 3350 POWDER 17 GM/1 PACKET PO ONE (12:00)
[2017-01-12 14:43] LABS: ANION GAP 11 (5-19); BLOOD UREA NITROGEN 69 mg/dL (7-20); CALCIUM 10.4 mg/dL (8.4-10.2); CARBON DIOXIDE 37 mmol/L (22-30); CHLORIDE 88 mmol/L (98-107); GLUCOSE 211 mg/dL (75-110); POTASSIUM 3.4 mmol/L (3.6-5.0); SODIUM 135.7 mmol/L (137-145)
--- NOTE | 2017-01-12 15:48 | PROGRESS NOTE E ---
Progress Note NAME: JACINTA LUNSFORD : 1935 AGE: 81Y DATE: ROOM: 332 NOTE: The patient seen from 10:10 a.m. to 10:40 a.m.; a total of 30 minutes was spent on this patient, with the aim to review the medication and changes made with the medications and discussions of the chest x-ray with the patient and the patient's brother. SUBJECTIVE: The patient states that she is slightly less short of breath and is able to wear nasal cannula oxygen in the mornings and wears CPAP at night. She still has some orthopnea but no PND. There is no leg edema today. There is no chest pain or discomfort. There no ventricular or atrial arrhythmias. The patient has an AV paced rhythm. OBJECTIVE: GENERAL: On examination, the patient is mildly overweight. At present she does not appear to be any major distress, although she complains of shortness of breath. VITAL SIGNS: She is afebrile with a temperature of 97.4 degrees Fahrenheit. Pulse is 60 beats per minute. Blood pressure is 141/50. Respirations are 18 per minutes. O2 sats are 98% on nasal cannula 4L. HEENT: Head is atraumatic, normocephalic. Eyes: Pupils are equal, round, regular and reactive to light and accommodation. External ocular movements are normal. Sclerae are without any icterus and conjunctivae are pink. Ear, nose and throat: Tympanic membranes are normal. Nares are patent. Oropharynx is clear without exudate. Tongue is moist. Mucous membranes are moist of the mouth. There is no oral ulcerations or bleeding of the gums. NECK: Supple. There is no lymphadenopathy. Carotids are equal. There are bilateral carotid bruits present. JVD is within normal limits. There is no goiter. LUNGS: Respirations seem to be nonlabored. There is no accessory muscles of respiration used. There are bibasilar fine crackles and decreased breath sounds. There is no wheezing. There are some scattered rhonchi. CARDIOVASCULAR: S1 and S2 are heard. There is no S3 gallop. There is no S4 gallop. There is a systolic murmur in the left sternal border in the apex. There is a murmur of mitral regurgitation present and also of mild aortic stenosis present. There is no rub. ABDOMEN: Soft, nontender. There is no hepatosplenomegaly. Bowel sounds are well heard. There is no guarding, rebound, or rigidity. There are no masses. EXTREMITIES: Pulses are mildly decreased. Femoral arteries have no bruits. There is no pedal edema today. There is no DVT or cellulitis. There is no calf tenderness. JAVA ENGINEER: The patient is conscious, awake, alert and oriented x3 with no focal deficits. PSYCHIATRIC: The patient appears to be less depressed today, but her judgement and insight are intact. SKIN: There is no ecchymosis, rash, ulcerations or signs of pruritus. IN/OUT: Twenty-four intake has been 2413, output is 1745. DIAGNOSTIC DATA: The patient's chest x-ray shows increasing pleural effusion with basilar atelectasis/infiltrate. There is also basilar congestion. IMPRESSION: 1. ACUTE ON CHRONIC CONGESTIVE HEART FAILURE, THIS IS COMBINED SYSTOLIC AND DIASTOLIC HEART FAILURE SECONDARY TO VALVULAR DISEASE WITH SIGNIFICANT MITRAL REGURGITATION, AND ALSO SECONDARY TO HER VOLUME OVERLOAD DUE TO RENAL FAILURE AND ALSO LV DIASTOLIC DYSFUNCTION. 2. ELEVATED TROPONIN-I LEVEL. THIS IS SECONDARY TO CONGESTIVE HEART FAILURE AND ACUTE ON CHRONIC KIDNEY DISEASE. No definite evidence of non-ST elevation NM. 3. CHRONIC RESPIRATORY FAILURE WITH HYPOXEMIA. This is improved. 4. COPD, IMPROVING. Continue oxygen and diuretics, but the patient still has effusion and basilar infiltrates. We will increase the Lasix to 40 mg p.o. q.8h. 5. HYPERTENSION. Blood pressure is well controlled. Note that the patient was both on amlodipine and Cardizem. I have stopped the patient's amlodipine. 6. CHRONIC KIDNEY DISEASE, STAGE III-IV. 7. DUAL-CHAMBER PACEMAKER WITH COMPLETE HEART BLOCK. 8. VALVULAR DISEASE WITH SIGNIFICANT MITRAL REGURGITATION AND MILD AORTIC STENOSIS. As mentioned earlier, on the last echo she was found to have [id number] mitral regurgitation. This is also contributing to her acute on chronic heart failure. There is increased effusion *------* We will increase the patient's diuretics. Continue the patient on Coreg and diltiazem. Continue metolazone. Also note, since the pleural effusions have increased, we will increase the patient's diuretics. 9. DIABETES MELLITUS TYPE 2, INSULIN-REQUIRING WITH CHRONIC KIDNEY DISEASE. 10. DEPRESSION. 11. HYPERLIPIDEMIA. RECOMMENDATIONS: 1. As mentioned earlier, continue antibiotics. 2. We will consider respiratory treatments. 3. Continue Coreg and diltiazem. 4. Continue atorvastatin for her hyperlipidemia. 5. She also has a history of gout, hence continue the patient on allopurinol. 6. We will recheck the patient's labs in the a.m. 7. Also will recheck the intake and output *------* today. The last 24 hours the intake has been much greater than the output. Note, 30 minutes spent on this patient, with more than 50% of the time spent on direct patient care, and also a discussion with the patient and the patient's brother, and also discussions with the , who is taking care of the patient before changing her medications. Note, that the patient is a DNR. Her daughter is the surrogate healthcare decision maker. DICTATING PHYSICIAN: KEN GIBSON M.D. [id number] PHY#: [id number] ID: [id number] JOB#: [id number] ACCT: [id number] cc: >
[2017-01-12] MEDS: DOCUSATE SODIUM 100 MG CAPSULE PO SCH (17:35)
[2017-01-12] MEDS: ONDANSETRON HCL 8 MG TABLET PO PRN (19:46)
[2017-01-12] MEDS: ANASTROZOLE 1 MG TABLET PO SCH (22:47)
[2017-01-12] MEDS: ISOSORBIDE MONONITRATE 60 MG TAB.ER.24H PO SCH (22:48)
[2017-01-12] MEDS: GABAPENTIN 100 MG CAPSULE PO SCH (22:48)
[2017-01-12] MEDS: ATORVASTATIN CALCIUM 20 MG TABLET PO SCH (22:50)
[2017-01-13] MEDS: FUROSEMIDE 40 MG TABLET PO SCH ×3 (05:05→22:00)
[2017-01-13 06:02] LABS: ALANINE AMINOTRANSFERASE 28 U/L (9-52); ALBUMIN 3.5 g/dL (3.5-5.0); ALKALINE PHOSPHATASE 65 U/L (38-126); ASPARTATE AMINO TRANSFERASE 32 U/L (14-36); BILIRUBIN,DIRECT 0.5 mg/dL (0.0-0.4); BILIRUBIN,TOTAL 0.7 mg/dL (0.2-1.3); CHOLESTEROL 129.49 mg/dL (0-200); Direct HDL 31 mg/dL (>40); TOTAL PROTEIN 6.1 g/dL (6.3-8.2); TRIGLYCERIDES 333 mg/dL (<150)
[2017-01-13 06:13] LABS: DIRECT LDL 43 mg/dL (<100)
[2017-01-13 06:15] LABS: ABSOLUTE EOSINOPHILS # (AUTO) 0.2 10^3/uL (0.0-0.6); ABSOLUTE LYMPHOCYTES (AUTO) 0.9 10^3/uL (0.5-4.7); ABSOLUTE MONOCYTES (AUTO) 0.4 10^3/uL (0.1-1.4); ABSOLUTE NEUT (AUTO) 3.7 10^3/uL (1.7-8.2); BASOPHILS % (AUTO) 0.8 % (0-2); EOSINOPHILS % (AUTO) 3.1 % (0-6); HEMATOCRIT 25.4 % (36.0-47.0); HEMOGLOBIN 8.4 g/dL (12.0-15.5); HGB HCT DIFFERENCE -0.2; MEAN CORPUSCULAR HEMOGLOBIN 29.5 pg (27.0-33.4); MEAN CORPUSCULAR HGB CONC 32.9 g/dL (32.0-36.0); MEAN CORPUSCULAR VOLUME 90 fl (80-97); RED BLOOD COUNT 2.83 10^6/uL (3.72-5.28); RED CELL DISTRIBUTION WIDTH 16.6 % (11.5-14.0); SEGMENTED NEUTROPHILS % (AUTO) 71.1 % (42-78); WHITE BLOOD COUNT 5.2 10^3/uL (4.0-10.5)
[2017-01-13 06:17] LABS: VLDL CHOLESTEROL 66.6 mg/dL (10-31)
[2017-01-13] MEDS: INSULIN LISPRO 100 UNIT/ML 3 ML VIAL SUBCUT PRN ×4 (07:49→22:02)
[2017-01-13] MEDS: PAROXETINE HCL 20 MG TABLET PO SCH (07:49)
[2017-01-13] MEDS: ENOXAPARIN SODIUM INJ 30 MG/0.3 ML DISP.SYRIN SUBCUT SCH (07:49)
[2017-01-13] MEDS: ONDANSETRON HCL 8 MG TABLET PO PRN ×2 (08:50→18:10)
[2017-01-13] MEDS: FLUTICASONE NASAL SPRAY 50 MCG/SPRY 120 SPRAY/16 GM NASL SCH ×2 (09:52→22:02)
[2017-01-13] MEDS: CARVEDILOL 12.5 MG TABLET PO SCH ×2 (09:53→22:01)
[2017-01-13] MEDS: DILTIAZEM HCL 240 MG CAPSULE.CR PO SCH ×2 (09:54→22:01)
[2017-01-13] MEDS: METOLAZONE 2.5 MG TABLET PO SCH (09:55)
[2017-01-13] MEDS: DOCUSATE SODIUM 100 MG CAPSULE PO SCH ×2 (09:55→18:10)
[2017-01-13] MEDS: FAMOTIDINE 20 MG TABLET PO SCH (09:55)
[2017-01-13] MEDS: MAGNESIUM OXIDE 400 MG TABLET PO SCH ×3 (09:55→18:10)
[2017-01-13] MEDS: ASPIRIN 81 MG TABLET, ENT COATED PO SCH (09:55)
[2017-01-13] MEDS: ALLOPURINOL 100 MG TABLET PO SCH (09:56)
[2017-01-13] MEDS: POTASSIUM CHLORIDE 10 MEQ TABLET.SA PO SCH ×2 (09:56→18:10)
[2017-01-13] MEDS: OMEGA-3 ACID ETHYL ESTERS 1 GM CAPSULE PO SCH ×2 (09:57→18:10)
[2017-01-13] MEDS: POLYETHYLENE GLYCOL 3350 POWDER 17 GM/1 PACKET PO SCH (09:57)
--- NOTE | 2017-01-13 11:43 | PDOC PROGRESS REPORT ---
Subjective Progress Note for:: 01/13/17 Subjective:: JACINTA LUNSFORD is an 81 year old female with multiple medical problems including diastolic congestive heart failure, chronic kidney disease, COPD, mitral regurgitation, and obesity. She has had numerous hospitalizations over the past 5 years. Medication management has been difficult because of her cardiorenal syndrome. She is followed by Dr. Jewell for cardiology and Dr. De Luna for nephrology. She presented 01/08/2017 with increased work of breathing. The chest x-ray showed vascular congestion. While getting up to the commode in the emergency department she had an oxygen desaturation into the 80s, and then into the 60s. She received a dose of Lasix and began diuresing. She had a nebulizer treatment and this also seemed to help. She denied chest pain. When I saw her in the emergency department she was wearing BiPAP. She confirmed a DO NOT INTUBATE status. The patient was admitted to the intermediate ICU for further evaluation and treatment. She diuresed well on IV Lasix. Rx changed to PO 01/11. Total fluid balance this admission is -4.6L. She remains on BiPAP prn but is now tolerating nasal O2 for some time. She is breathing more easily but this is variable. At times she is very SOB. Cardiology is following and await Nephro consultation. May need to reconsult Dr. De Luna in the AM. Physical Exam Vital Signs: Temp Pulse Resp BP Pulse Ox 97.9 F 60 20 139/49 H 96 01/13/17 07:59 01/13/17 07:59 01/13/17 07:59 01/13/17 07:59 01/13/17 09:49 Intake & Output 01/12/17 01/13/17 01/14/17 06:59 06:59 06:59 Intake Total 2413 1807 Output Total 1745 975 Balance 668 832 Weight 70.8 kg 76.8 kg Additional comments: General appearance: PRESENT: morbidly obese, other - mild distress, currently off BiPAP Head exam: PRESENT: atraumatic, normocephalic Eye exam: PRESENT: conjunctiva pink, EOMI, PERRLA. ABSENT: scleral icterus Ear exam: PRESENT: normal external ear exam Mouth exam: PRESENT: moist, tongue midline Neck exam: ABSENT: carotid bruit, lymphadenopathy, thyromegaly Respiratory exam: PRESENT: breathing comfortably, better air movement, forced expiratory wheezes. ABSENT: rhonchi Cardiovascular exam: PRESENT: RRR. ABSENT: diastolic murmur, rubs, systolic murmur Pulses: PRESENT: normal dorsalis pedis pul Vascular exam: PRESENT: normal capillary refill GI/Abdominal exam: PRESENT: normal bowel sounds, soft, slihgtly distended. ABSENT: guarding, mass, organolmegaly, rebound, tenderness Rectal exam: PRESENT: deferred Extremities exam: PRESENT: full ROM, +1 edema, other - changes of osteoarthritis. ABSENT: calf tenderness, clubbing, pedal edema Neurological exam: PRESENT: alert, awake, oriented to person, oriented to place , CN II-XII grossly intact. ABSENT: motor sensory deficit Psychiatric exam: PRESENT: appropriate affect. ABSENT: homicidal ideation, suicidal ideation Skin exam: PRESENT: dry, intact, warm. ABSENT: cyanosis, rash Results Laboratory Results: 01/13/17 05:24 01/12/17 14:15 01/12/17 01/13/17 01/13/17 14:15 05:24 05:24 WBC 5.2 RBC 2.83 L Hgb 8.4 L Hct 25.4 L MCV 90 MCH 29.5 MCHC 32.9 RDW 16.6 H Plt Count 141 L Seg Neutrophils % 71.1 Lymphocytes % 18.0 Monocytes % 7.0 Eosinophils % 3.1 Basophils % 0.8 Absolute Neutrophils 3.7 Absolute Lymphocytes 0.9 Absolute Monocytes 0.4 Absolute Eosinophils 0.2 Absolute Basophils 0.0 Sodium 135.7 L Potassium 3.4 L Chloride 88 L Carbon Dioxide 37 H Anion Gap 11 BUN 69 H Creatinine 1.70 H Est GFR ( Amer) 35 L Est GFR (Non-Af Amer) 29 L Glucose 211 H Calcium 10.4 H Total Bilirubin 0.7 AST 32 ALT 28 Alkaline Phosphatase 65 Total Protein 6.1 L Albumin 3.5 Triglycerides 333 H Cholesterol 129.49 LDL Cholesterol Direct 43 VLDL Cholesterol 66.6 H HDL Cholesterol 31 L 01/08/17 01/08/17 01/08/17 17:55 17:55 23:59 Creatine Kinase < 20 L < 20 L CK-MB (CK-2) 0.64 Troponin I 0.028 01/08/17 01/09/17 01/09/17 23:59 06:42 06:42 Creatine Kinase < 20 L CK-MB (CK-2) 0.55 0.56 Troponin I 0.058 0.137 Impressions: Chest X-Ray 01/12/17 11:00 IMPRESSION: CARDIAC ENLARGEMENT. VASCULAR CONGESTION. INCREASING PLEURAL EFFUSIONS WITH BASILAR ATELECTASIS/INFILTRATE. Assessment & Plan - Diagnosis (1) Acute on chronic diastolic (congestive) heart failure Is this a current diagnosis for this admission?: YesPlan: On oral Lasix. Effective diuresis. Continue Zaroxolyn, Coreg, Imdur. Continue to monitor her clinical status and laboratories in view of her severe kidney disease. Cardiology following. (2) Chronic kidney disease, stage IV (severe) Is this a current diagnosis for this admission?: YesPlan: Her renal function studies are slightly higher today. Will continue to monitor. Has not been seen by Dr. De Luna, Nephrology, but renal function has remained fairly stable at an advanced degree of dysfunction. (3) Cardiorenal syndrome with renal failure Is this a current diagnosis for this admission?: Yes (4) COPD (chronic obstructive pulmonary disease) Qualifiers: COPD type: emphysema Emphysema type: unspecified Qualified Code(s) : J43.9 - Emphysema, unspecified Is this a current diagnosis for this admission?: YesPlan: She seemed to respond to a breathing treatment in the emergency department. Have continued with nebulized bronchodilators. (5) Acute on chronic respiratory failure with hypoxemia Is this a current diagnosis for this admission?: YesPlan: Oxygen supplementation as needed. (6) Mitral regurgitation Qualifiers: Cardiac valve disease etiology: nonrheumatic Qualified Code(s): I34.0 - Nonrheumatic mitral (valve) insufficiency Is this a current diagnosis for this admission?: YesPlan: Dr. Porter discussed options with patient and . (7) Pulmonary hypertension Is this a current diagnosis for this admission?: Yes (8) Essential hypertension Is this a current diagnosis for this admission?: YesPlan: BP in satisfactory range. Continuing home medications and monitoring. (9) Diabetes mellitus type 2 Is this a current diagnosis for this admission?: YesPlan: Continuing home medications and to monitor. (10) Cardiac pacemaker in situ Is this a current diagnosis for this admission?: Yes (11) Generalized weakness Is this a current diagnosis for this admission?: YesPlan: PT as able.
[2017-01-13] MEDS: HYDROCODONE/ACETAMINOPHEN 10-325 MG TABLET PO PRN ×2 (12:15→23:15)
[2017-01-13 14:29] LABS: ANION GAP 9 (5-19); BLOOD UREA NITROGEN 75 mg/dL (7-20); CALCIUM 10.3 mg/dL (8.4-10.2); CARBON DIOXIDE 36 mmol/L (22-30); CHLORIDE 87 mmol/L (98-107); CREATININE RESULT 2.07 mg/dL (0.52-1.25); GLUCOSE 236 mg/dL (75-110); POTASSIUM 3.7 mmol/L (3.6-5.0); SODIUM 131.6 mmol/L (137-145)
--- NOTE | 2017-01-13 18:22 | PDOC CONSULTATION ---
Consultation Consult Date: 01/13/17 History of Present Illness Admission Date/PCP: 01/08/17 13:48 MANUEL YO DO History of Present Illness: JACINTA LUNSFORD is a 81 year old female with multiple medical problems including diastolic congestive heart failure, chronic kidney disease, COPD, mitral regurgitation, and obesity. She has had numerous hospitalizations over the past 5 years. Medication management has been difficult because of her cardiorenal syndrome. She is followed by Dr. Erazo for cardiology and Dr. De Luna for nephrology. Came to the ER with progressive shortness of breath and worsening Orthopnea. N chest pains. The chest x-ray shows vascular congestion. On getting up to the commode in the emergency department she had an oxygen desaturation into the 80s , and then into the 60s. She has received a dose of Lasix and also had a nebulizer treatment and this also seemed to help. renato is feeling much better since her admission. Still has orthopnea even though edema is improved Past Medical History Cardiac Medical History: Reports: Atrial Fibrillation, Coronary Artery Disease, Heart Murmur, Hyperlipidemia, Hypertension-primary, Hypertension- shlomo-vascular , Peripheral Vascular Disease, Valvular Heart disease - Aortic stenosis, Other - mitral regurgitation Denies: Myocardial Infarction, Pulmonary Embolism Pulmonary Medical History: Reports: Asthma, Bronchitis, Chronic Obstructive Pulmonary Disease (COPD), Pneumonia Denies: Respiratory Failure, Sleep Apnea, Tuberculosis Neurological Medical History: Reports: Migraine Denies: Seizures Endocrine Medical History: Reports: Diabetes Mellitus Type 2, Obesity Denies: Hyperthyroidism, Hypothyroidism Renal/ Medical History: Reports: Chronic Kidney Disease Stage IV, Hypercalcemia, Renal artery stenosis Denies: Benign Prostatic Hyperplasia, End Stage Renal Disease Malignancy Medical History: Reports: Breast Cancer, Skin Cancer - Basal cell Denies: Cervical Cancer, Leukemia, Lung Cancer, Ovarian Cancer GI Medical History: Reports: Diverticulitis, Gastroesophageal Reflux Disease Denies: Crohn's Disease, Hiatal Hernia Musculoskeltal Medical History: Reports: Arthritis, Gout Denies: Fibromyalgia, Rheumatoid Arthritis, Systemic Lupus Erythematosus Psychiatric Medical History: Reports: Depression Denies: Bipolar Disorder, Dementia, Post Traumatic Stress Disorder Infectious Medical History: Denies: HIV Hematology Medical History: Reports Anemia Past Surgical History Past Surgical History: Reports: Appendectomy, Cholecystectomy, Herniorrhaphy, Hysterectomy, Pacemaker, Renal Stent - Renal artery stent, Other - Previous EGDs and colonoscopies, breast lumpectomy Denies: Section, Colostomy, Coronary Artery Bypass Graft, Gastric Bypass Surgery, Mastectomy, Tonsillectomy, Tubal Ligation Social History Lives with: Family Smoking Status: Never Smoker Frequency of Alcohol Use: None Hx Recreational Drug Use: No Drugs: None Hx Prescription Drug Abuse: No Family History Parental Family History Reviewed: Yes - negatice ckd Children Family History Reviewed: No Sibling(s) Family History Reviewed.: No Medication/Allergy Home Medications: Allopurinol [Zyloprim 100 mg Tablet] 100 mg PO DAILY 12/19/16 Anastrozole [Arimidex 1 mg Tablet] 1 mg PO DAILY 12/19/16 Ascorbic Acid [Vitamin C 500 mg Tablet] 500 mg PO DAILY 12/19/16 Aspirin [Aspirin EC] 81 mg PO DAILY 12/19/16 Carvedilol [Coreg 25 mg Tablet] 25 mg PO Q12 12/19/16 Cetirizine HCl [Zyrtec 10 mg Tablet] 10 mg PO DAILYP PRN 12/19/16 Famotidine [Pepcid 20 mg Tablet] 20 mg PO Q12 12/19/16 Fenofibrate Nanocrystallized [Triglide] 160 mg PO DAILY 12/19/16 Fluticasone Propionate [Flonase Nasal [place] 50 Mcg/[place] 16 gm] 1 spray NASL Q12 12/19/16 Hydrocodone Bit/Acetaminophen [Hydrocodon-Acetaminophn 10-325] 1 tab PO QIDP PRN 12/19/16 Isosorbide Mononitrate [Isosorbide Mononitrate ER] 120 mg PO QHS 12/19/16 Magnesium Oxide [Mag-Ox 400 mg Tablet] 400 mg PO TID 12/19/16 Nitroglycerin [Nitrostat] 0.4 mg SL Q5MP PRN 12/19/16 [place]-3 Acid Ethyl Esters [Lovaza 1 gm Capsule] 2 gm PO BID 12/19/16 Ondansetron HCl [Zofran 8 mg Tablet] 8 mg PO Q8HP PRN 12/19/16 Paroxetine HCl [Paxil 20 mg Tablet] 20 mg PO QAM 12/19/16 Potassium Chloride [K-Tab ER] 20 meq PO BID 12/19/16 Rosuvastatin Calcium [Crestor 10 mg Tablet] 10 mg PO DAILY 12/19/16 Simethicone [Mylicon 80 mg Chewable Tablet] 80 mg PO Q6HP PRN 12/19/16 Torsemide [Demadex 20 mg Tablet] 40 mg PO BID 12/19/16 Amlodipine Besylate [Norvasc 10 mg Tablet] 10 mg PO DAILY #30 tablet 12/23/16 Gabapentin [Neurontin 100 mg Capsule] 100 mg PO QHS #30 capsule 12/23/16 Albuterol Sulfate [Ventolin 0.083% Neb 2.5 mg/3 mL Ampul] 3 ml NEB RTQ3HP PRN Diltiazem HCl [Cardizem Cd 240 mg Capsule.cr] 240 mg PO Q12 01/08/17 Hum Insulin NPH/Reg Insulin Hm [Insulin 70-30 (NPH/Reg) 100 unit/mL] 20 unit SQ ACSUPPER 01/08/17 Hum Insulin NPH/Reg Insulin Hm [Insulin 70-30 (NPH/Reg) 100 unit/mL] 30 unit SQ [id number] 01/08/17 Insulin Aspart [Novolog Flexpen] 0 unit SQ .PERSLIDINGSCALE 01/08/17 Metolazone [Zaroxolyn 2.5 mg Tablet] 2.5 mg PO DAILY 01/08/17 Allergies/Adverse Reactions: codeine [Codeine] Allergy (Severe, Verified 09/29/16 09:18) Hospitalized Penicillins Allergy (Severe, Verified 09/29/16 09:18) Redness, heat, swelling at site promethazine HCl [From Phenergan] Allergy (Unknown, Verified 09/29/16 09:18) PROBLEMS WITH LEGS Sulfa (Sulfonamide Antibiotics) Allergy (Unknown, Verified 09/29/16 09:18) Unknown reaction hydralazine HCl [From Apresoline] Adverse Reaction (Severe, Verified 09/29/16 09 :18) Cardiac arrest atorvastatin calcium [From Lipitor] Adverse Reaction (Verified 09/29/16 09:18) IV Contrast Allergy (Severe, Uncoded 09/29/16 09:18) ESRD Review of Systems Constitutional: PRESENT: weakness, weight gain. ABSENT: fever(s), headache(s), night sweats Eyes: ABSENT: visual disturbances Nose, Mouth, and Throat: ABSENT: mouth pain Cardiovascular: PRESENT: dyspnea on exertion, edema, orthropnea. ABSENT: chest pain, palpitations Gastrointestinal: ABSENT: abdominal pain, bloating, coffee ground emesis, diarrhea, dysphagia, heartburn, hematemesis, hematochezia, nausea, vomiting Genitourinary: ABSENT: dysuria, hematuria Integumentary: ABSENT: pruritus Neurological: ABSENT: abnormal movements, abnormal speech, confusion, focal weakness Endocrine: ABSENT: heat intolerance, polydipsia Physical Exam Vital Signs: Temp Pulse Resp BP Pulse Ox 98.3 F 60 20 120/59 L 96 01/13/17 15:11 01/13/17 15:11 01/13/17 15:11 01/13/17 15:11 01/13/17 15:11 Intake & Output 01/12/17 01/13/17 01/14/17 06:59 06:59 06:59 Intake Total 2413 1807 367 Output Total 1745 975 400 Balance 668 832 -33 Weight 70.8 kg 76.8 kg General appearance: PRESENT: cooperative, mild distress, morbidly obese Eye exam: PRESENT: conjunctiva pink, EOMI, PERRLA. ABSENT: nystagmus, scleral icterus Ear exam: PRESENT: normal external ear exam. ABSENT: bleeding Mouth exam: PRESENT: moist, neck supple Neck exam: PRESENT: JVD. ABSENT: lymphadenopathy, meningismus, tenderness, thyromegaly, tracheal deviation Respiratory exam: PRESENT: clear to auscultation dion, crackles, decreased breath sounds. ABSENT: rhonchi Cardiovascular exam: PRESENT: gallop, +S1, +S2, systolic murmur - long drawn perdue systolic and conducted to the axill. GI/Abdominal exam: PRESENT: ascites, distended, soft. ABSENT: diminished bowel sounds, mass, organomegaly, tenderness Extremities exam: PRESENT: +1 edema. ABSENT: clubbing Neurological exam: PRESENT: alert, awake, oriented to person, oriented to place , oriented to time Skin exam: ABSENT: dry, mottled, rash Results Laboratory Results: 01/13/17 05:24 01/13/17 14:03 01/13/17 01/13/17 01/13/17 05:24 05:24 14:03 WBC 5.2 RBC 2.83 L Hgb 8.4 L Hct 25.4 L MCV 90 MCH 29.5 MCHC 32.9 RDW 16.6 H Plt Count 141 L Seg Neutrophils % 71.1 Lymphocytes % 18.0 Monocytes % 7.0 Eosinophils % 3.1 Basophils % 0.8 Absolute Neutrophils 3.7 Absolute Lymphocytes 0.9 Absolute Monocytes 0.4 Absolute Eosinophils 0.2 Absolute Basophils 0.0 Sodium 131.6 L Potassium 3.7 Chloride 87 L Carbon Dioxide 36 H Anion Gap 9 BUN 75 H Creatinine 2.07 H Est GFR ( Amer) 28 L Est GFR (Non-Af Amer) 23 L Glucose 236 H Calcium 10.3 H Total Bilirubin 0.7 AST 32 ALT 28 Alkaline Phosphatase 65 Total Protein 6.1 L Albumin 3.5 Triglycerides 333 H Cholesterol 129.49 LDL Cholesterol Direct 43 VLDL Cholesterol 66.6 H HDL Cholesterol 31 L 01/08/17 01/08/17 01/08/17 17:55 17:55 23:59 Creatine Kinase < 20 L < 20 L CK-MB (CK-2) 0.64 Troponin I 0.028 01/08/17 01/09/17 01/09/17 23:59 06:42 06:42 Creatine Kinase < 20 L CK-MB (CK-2) 0.55 0.56 Troponin I 0.058 0.137 Impressions: Chest X-Ray 01/12/17 11:00 IMPRESSION: CARDIAC ENLARGEMENT. VASCULAR CONGESTION. INCREASING PLEURAL EFFUSIONS WITH BASILAR ATELECTASIS/INFILTRATE. Assessment & Plan - Diagnosis (1) Diabetes mellitus type 2 Is this a current diagnosis for this admission?: YesPlan: adv tight control (2) Acute kidney injury superimposed on chronic kidney disease Plan: cardiorenal syndrome. She probably needs a MVR but age and co morbididties precludes her from that. Reviewed ECHO done early y.She would benefit from Dialysis and I am going to leave that discussion to DR De Luna when she returns on Friday. (3) Acute on chronic congestive heart failure Qualifiers: Congestive heart failure type: combined Qualified Code(s): I50.43 - Acute on chronic combined systolic (congestive) and diastolic (congestive) heart failure Is this a current diagnosis for this admission?: YesPlan: She has a mildly depressed LVEF an diastolic HF and a severe MR. Correction of anemia will help. (4) Acute on chronic respiratory failure with hypoxemia Is this a current diagnosis for this admission?: YesPlan: Improved with diuresis and nebs. (5) Anemia of chronic disease Plan: Will order Iron studies and later needs to consider EPo. (6) COPD (chronic obstructive pulmonary disease) Qualifiers: COPD type: emphysema Emphysema type: unspecified Qualified Code(s) : J43.9 - Emphysema, unspecified Is this a current diagnosis for this admission?: Yes (7) Essential hypertension Is this a current diagnosis for this admission?: YesPlan: stable.
--- NOTE | 2017-01-13 18:29 | PROGRESS NOTE E ---
Progress Note NAME: JACINTA LUNSFORD : 1935 AGE: 81Y DATE: 01/13/2017 ROOM: 332 TIME SPENT: Note that the patient was seen between 11:00 a.m. and 11:30 a.m. today. SUBJECTIVE: The patient uses a CPAP at night and uses nasal cannula in the morning. She says she is still short of breath. She still has bilateral pleural effusions suggestive of significant volume overload. She is bedridden and hence, she has no pedal edema, but she has edema in the sacral area. She says her shortness of breath is still there. She has orthopnea, but no PND. There is no chest pain or discomfort. There are no palpitations. There is no dizziness or syncope. On the monitor, there is an AV paced rhythm, there is no arrhythmia seen. OBJECTIVE: GENERAL: On examination, the patient is mildly obese. VITAL SIGNS: She is afebrile with a temperature of 97.9 degrees Fahrenheit orally, pulse is 60 beats per minute, blood pressure is 139/49, respirations are 20 per minutes, O2 sats are 96% on 4 L nasal cannula. HEENT: Head is atraumatic, normocephalic. Eyes: Pupils are equal, round, regular, and reactive to light and accommodation. Extraocular movements are normal. Sclerae are without any icterus and conjunctivae are pink. Ear, nose and throat: Tympanic membranes are normal. Nares are patent. Oropharynx is clear without exudate. Tongue is moist. Mucous membranes of the mouth are moist. There are no oral ulcerations or bleeding of the gums. NECK: Supple. There is mild JVD present. There is no lymphadenopathy. Carotids are equal. There are bilateral carotid bruits present. There is no goiter. LUNGS: Respirations unlabored. There are no accessory muscles of respiration in use. There are absent breath sounds in both bases with bibasilar fine crackles and decreased breath sounds. There is no wheezing. There are some scattered rhonchi. CARDIOVASCULAR: S1 and S2 are heard. S1 is of normal intensity. There is no S3 gallop. There is no S4 gallop. There is a systolic murmur in the left sternal border and the apex. There is a murmur of mitral regurgitation present heard at the approximately with radiation to the left axilla. ABDOMEN: Soft and nontender. There is no hepatosplenomegaly. Bowel sounds are well heard. There is no guarding, rebound, or rigidity. There is no mass. EXTREMITIES: Pulses are mildly decreased. Femoral arteries have no bruits. There is no pedal edema. There is no DVT or cellulitis. There is no calf tenderness. CENTRAL NERVOUS SYSTEM: The patient is conscious, awake, alert and oriented x3 with no focal deficits. PSYCHIATRIC: The patient appears to be a little more sleepy today, but her judgement and insight are intact when the patient is awoken. SKIN: There is no ecchymosis, rash, ulcerations, or signs of pruritus. INTAKE/OUTPUT: The patient's 24-hour intake was 1807, output is 971 mL. Note that the patient weighed 70.8 kg on 01/11 and she is 76.8 kg on 01/12/2017 and hence, the patient is retaining fluids and does have volume overload. DIAGNOSTIC DATA: The patient's chest x-ray done yesterday shows increasing pleural effusion with basilar atelectasis or infiltrate. There is also vascular congestion. The patient's white count is 5,200; hemoglobin is 8.4; hematocrit is 25.4 and the platelet count is 141. The patient's sodium is 131.6, potassium is 3.7, chloride is 87, CO2 is 36. The patient's BUN is 75, creatinine is 2.07, GFR is reduced at 23 mL, which is running to stage 4 CKD. The patient's glucose is 236. Calcium is high at 10.3. The patient's total protein is 6.1. *------* Her LDL Her liver function tests are normal except for increased direct bilirubin of 0.5. The patient's triglycerides are 333, the patient's total cholesterol is 129.49, her LDL cholesterol is good at 43, her HDL cholesterol is 31, which is low and bad. ASSESSMENT AND PLAN: 1. ACUTE ON CHRONIC CONGESTIVE HEART FAILURE; THIS IS COMBINED SYSTOLIC AND DIASTOLIC HEART FAILURE SECONDARY TO VALVULAR DISEASE WITH SIGNIFICANT MITRAL REGURGITATION, AND ALSO SECONDARY TO HER VOLUME OVERLOAD DUE TO RENAL FAILURE, AND ALSO LV DIASTOLIC DYSFUNCTION. THE PATIENT CONTINUES TO RETAIN FLUID AND HAS GAINED WEIGHT. HENCE, THIS IS DEFINITELY AN INDICATION OF VOLUME OVERLOAD. In view of this, would get Nephrology in consult to see if the patient can at least have a temporary dialysis done, so that she, with the protection of dialysis, could undergo a cardiac catheterization to make sure she has no coronary artery disease and to see if that mitral regurgitation is still the same, which is significant, at which time, the patient could be considered for a mitral valve repair or replacement. 2. ELEVATED TROPONIN-I LEVEL; THIS IS SECONDARY TO CONGESTIVE HEART FAILURE AND ACUTE ON CHRONIC KIDNEY DISEASE. NO DEFINITE EVIDENCE OF NON-ST ELEVATION CA. 3. CHRONIC RESPIRATORY FAILURE WITH HYPOXEMIA. This is improved, but the patient still needs CPAP at night and also continues needing nasal cannula oxygen. 4. COPD. Improving, but the patient still has increasing bilateral effusions and basilar infiltrates. There is not much response to increasing Lasix to 40 mg p.o. q. 8 hours. 5. HYPERTENSION. BLOOD PRESSURE IS WELL CONTROLLED. The patient is now only on Cardizem and also on Coreg. 6. CHRONIC KIDNEY DISEASE, NOW STAGE 4. With the patient retaining fluid and weight gain and with the patient's mitral regurgitation, the patient may require temporary dialysis at least to safeguard her for possible catheterization to make sure she has no coronary artery disease before addressing the mitral valve issue and also, if the mitral regurgitation is not static and is dynamic, hemodialysis might improve the mitral regurgitation. Will consult the stripping shovel operator. 7. DUAL-CHAMBER PACEMAKER WITH COMPLETE HEART BLOCK. 8. VALVULAR DISEASE WITH SIGNIFICANT MITRAL REGURGITATION AND MILD AORTIC STENOSIS. The treatment will be: Continue diuretics, continue the patient on calcium channel blockers, continue metolazone, and continue Lasix. Yesterday, I had increased the patient's Lasix to 40 mg q. 8 hours with no significant difference in the output and with the creatinine going up. Maybe, the patient should be on IV Lasix treatment, but will leave that to Nephrology. 9. DIABETES MELLITUS TYPE 2, INSULIN-REQUIRING, WITH CHRONIC KIDNEY DISEASE. 10. DEPRESSION. 11. HYPERLIPIDEMIA. Note, 30 minutes spent on this patient with more than 50% of the time spent on direct patient care, the patient's medications have been reviewed, and the case has been discussed with the patient and with hospitalist who will consult Nephrology. Note, this is a highly complex medical decision making involved in this case. Will follow with you. Thanking you. DICTATING PHYSICIAN: KEN GIBSON M.D. [id number] PHY#: [id number] ID: [id number] JOB#: [id number] ACCT: [id number] cc: >
[2017-01-13] MEDS: ATORVASTATIN CALCIUM 20 MG TABLET PO SCH (22:01)
[2017-01-13] MEDS: ISOSORBIDE MONONITRATE 60 MG TAB.ER.24H PO SCH (22:01)
[2017-01-13] MEDS: GABAPENTIN 100 MG CAPSULE PO SCH (22:02)
[2017-01-13] MEDS: ANASTROZOLE 1 MG TABLET PO SCH (22:02)
[2017-01-14] MEDS: FUROSEMIDE 40 MG TABLET PO SCH (05:37)
[2017-01-14 06:57] LABS: HEMOGLOBIN 8.7 g/dL (12.0-15.5); HGB HCT DIFFERENCE 0.1; MEAN CORPUSCULAR HEMOGLOBIN 30.3 pg (27.0-33.4); MEAN CORPUSCULAR HGB CONC 33.4 g/dL (32.0-36.0); MEAN CORPUSCULAR VOLUME 91 fl (80-97); RED BLOOD COUNT 2.87 10^6/uL (3.72-5.28); RED CELL DISTRIBUTION WIDTH 16.7 % (11.5-14.0); WHITE BLOOD COUNT 4.8 10^3/uL (4.0-10.5)
[2017-01-14 07:27] LABS: ANION GAP 10 (5-19); BLOOD UREA NITROGEN 74 mg/dL (7-20); CALCIUM 10.3 mg/dL (8.4-10.2); CARBON DIOXIDE 35 mmol/L (22-30); CHLORIDE 87 mmol/L (98-107); CREATININE RESULT 2.04 mg/dL (0.52-1.25); GLUCOSE 193 mg/dL (75-110); POTASSIUM 3.4 mmol/L (3.6-5.0); SODIUM 132.1 mmol/L (137-145)
[2017-01-14] MEDS: ENOXAPARIN SODIUM INJ 30 MG/0.3 ML DISP.SYRIN SUBCUT SCH (08:14)
[2017-01-14] MEDS: PAROXETINE HCL 20 MG TABLET PO SCH (08:14)
[2017-01-14 08:18] LABS: FOLATE 7.97 ng/mL (>2.76)
[2017-01-14] MEDS: HYDROCODONE/ACETAMINOPHEN 10-325 MG TABLET PO PRN ×3 (08:42→22:06)
[2017-01-14] MEDS: INSULIN LISPRO 100 UNIT/ML 3 ML VIAL SUBCUT PRN ×4 (08:47→22:40)
[2017-01-14] MEDS: POLYETHYLENE GLYCOL 3350 POWDER 17 GM/1 PACKET PO SCH (09:19)
[2017-01-14] MEDS: ONDANSETRON HCL 8 MG TABLET PO PRN (09:19)
[2017-01-14] MEDS: ASPIRIN 81 MG TABLET, ENT COATED PO SCH (09:19)
[2017-01-14] MEDS: OMEGA-3 ACID ETHYL ESTERS 1 GM CAPSULE PO SCH ×2 (09:19→17:15)
[2017-01-14] MEDS: CARVEDILOL 12.5 MG TABLET PO SCH ×2 (09:20→21:58)
[2017-01-14] MEDS: FAMOTIDINE 20 MG TABLET PO SCH (09:20)
[2017-01-14] MEDS: POTASSIUM CHLORIDE 10 MEQ TABLET.SA PO SCH ×2 (09:20→17:15)
[2017-01-14] MEDS: MAGNESIUM OXIDE 400 MG TABLET PO SCH ×3 (09:21→17:15)
[2017-01-14] MEDS: ALLOPURINOL 100 MG TABLET PO SCH (09:21)
[2017-01-14] MEDS: METOLAZONE 2.5 MG TABLET PO SCH (09:21)
[2017-01-14] MEDS: DOCUSATE SODIUM 100 MG CAPSULE PO SCH ×2 (09:21→17:15)
[2017-01-14] MEDS: DILTIAZEM HCL 240 MG CAPSULE.CR PO SCH ×2 (09:21→22:01)
[2017-01-14] MEDS: FLUTICASONE NASAL SPRAY 50 MCG/SPRY 120 SPRAY/16 GM NASL SCH ×2 (09:37→22:05)
[2017-01-14] MEDS ORDERED: POTASSIUM CHLORIDE 10 MEQ TABLET.SA PO ONE (14:00)
[2017-01-14] MEDS: FUROSEMIDE INJ/PF 20 MG/2 ML SDV IV SCH ×2 (14:23→22:05)
--- NOTE | 2017-01-14 14:48 | PDOC PROGRESS REPORT ---
Subjective Progress Note for:: 01/14/17 Subjective:: reason for visit: f/u heart failure, CKD, hypoxia hospital course: per other's notes - "JACINTA LUNSFORD is an 81 year old female with multiple medical problems including diastolic congestive heart failure, chronic kidney disease, COPD, mitral regurgitation, and obesity. She has had numerous hospitalizations over the past 5 years. Medication management has been difficult because of her cardiorenal syndrome. She is followed by Dr. Jewell for cardiology and Dr. De Luna for nephrology. She presented 01/08/2017 with increased work of breathing. The chest x-ray showed vascular congestion. While getting up to the commode in the emergency department she had an oxygen desaturation into the 80s, and then into the 60s. She received a dose of Lasix and began diuresing. She had a nebulizer treatment and this also seemed to help. She denied chest pain. When I saw her in the emergency department she was wearing BiPAP. She confirmed a DO NOT INTUBATE status. The patient was admitted to the intermediate ICU for further evaluation and treatment. She diuresed well on IV Lasix. Rx changed to PO 01/11. Total fluid balance this admission is -4.6L. She remains on BiPAP prn but is now tolerating nasal O2 for some time. She is breathing more easily but this is variable. At times she is very SOB. Cardiology is following and await Nephro consultation. May need to reconsult Dr. De Luna in the AM." I inherited her care Friday and she still c/o SOA with minimal exertion, still fatigues half-way through the day and requires further BiPAP tx; overall feels better but clearly not back to baseline. c/o nausea ROS: as above, still weak also but no chest pain, fevers/chills, emesis, diarrhea, total 10 systems reviewed remaining systems negative Physical Exam Vital Signs: Temp Pulse Resp BP Pulse Ox 97.6 F 60 20 120/50 L 99 01/14/17 12:00 01/14/17 12:00 01/14/17 12:00 01/14/17 12:00 01/14/17 12:00 Intake & Output 01/13/17 01/14/17 01/15/17 06:59 06:59 06:59 Intake Total 1807 1077 Output Total 975 1375 Balance 832 -298 Weight 76.8 kg 70.9 kg General appearance: PRESENT: no acute distress, well-developed, well-nourished, other - frail appearing Head exam: PRESENT: atraumatic, normocephalic Eye exam: ABSENT: conjunctival injection, scleral icterus Mouth exam: PRESENT: dry mucosa. ABSENT: neck supple Neck exam: PRESENT: full ROM. ABSENT: tracheal deviation Respiratory exam: PRESENT: rales - bases. ABSENT: rhonchi, wheezes Cardiovascular exam: PRESENT: RRR, systolic murmur Pulses: PRESENT: normal carotid pulses, normal radial pulses GI/Abdominal exam: PRESENT: normal bowel sounds, soft. ABSENT: tenderness Extremities exam: PRESENT: +1 edema Neurological exam: PRESENT: alert, awake, oriented to person, oriented to place , oriented to time Psychiatric exam: PRESENT: normal mood. ABSENT: appropriate affect - flat Results Laboratory Results: 01/14/17 06:15 01/14/17 06:15 01/13/17 01/14/17 01/14/17 14:03 06:15 06:15 WBC 4.8 RBC 2.87 L Hgb 8.7 L Hct 26.0 L MCV 91 MCH 30.3 MCHC 33.4 RDW 16.7 H Plt Count 157 Retic Count (auto) 4.20 H Absolute Retic 0.121 Sodium 131.6 L 132.1 L Potassium 3.7 3.4 L Chloride 87 L 87 L Carbon Dioxide 36 H 35 H Anion Gap 9 10 BUN 75 H 74 H Creatinine 2.07 H 2.04 H Est GFR ( Amer) 28 L 28 L Est GFR (Non-Af Amer) 23 L 23 L Glucose 236 H 193 H Calcium 10.3 H 10.3 H Iron 41.5 TIBC 310 % Saturation 13 Ferritin 616.00 H Vitamin B12 460.0 Folate 7.97 01/08/17 01/08/17 01/08/17 17:55 17:55 23:59 Creatine Kinase < 20 L < 20 L CK-MB (CK-2) 0.64 Troponin I 0.028 01/08/17 01/09/17 01/09/17 23:59 06:42 06:42 Creatine Kinase < 20 L CK-MB (CK-2) 0.55 0.56 Troponin I 0.058 0.137 Impressions: Chest X-Ray 01/12/17 11:00 IMPRESSION: CARDIAC ENLARGEMENT. VASCULAR CONGESTION. INCREASING PLEURAL EFFUSIONS WITH BASILAR ATELECTASIS/INFILTRATE. Assessment & Plan - Diagnosis (1) Acute on chronic respiratory failure with hypoxemia Is this a current diagnosis for this admission?: YesPlan: improved but not back to baseline. continue attempts to diurese and wean off BiPAP. add IS. (2) COPD (chronic obstructive pulmonary disease) Qualifiers: COPD type: emphysema Emphysema type: unspecified Qualified Code(s) : J43.9 - Emphysema, unspecified Is this a current diagnosis for this admission?: YesPlan: without acute exacerbation but certainly complicates her recovery. (3) Chronic kidney disease, stage IV (severe) Is this a current diagnosis for this admission?: YesPlan: renal fxn waxing/waning, not sure how much more they can take; defer to her county health officer when she is available in the am. continue to monitor for now. (4) Mitral regurgitation Qualifiers: Cardiac valve disease etiology: nonrheumatic Qualified Code(s): I34.0 - Nonrheumatic mitral (valve) insufficiency Is this a current diagnosis for this admission?: YesPlan: severe and certainly complicates her volume and respiratory status. not good candidate at this time for valve replacement until or unless she is considered for hemodialysis to allow for heart cath and possible MV replacement if indicated. (5) Acute on chronic diastolic (congestive) heart failure Is this a current diagnosis for this admission?: YesPlan: improved but not back to baseline. continue attempts at diuresis (6) Cardiorenal syndrome with renal failure Is this a current diagnosis for this admission?: YesPlan: improved but not back to baseline. as above - Time Time Spent with patient: 25-34 minutes
--- NOTE | 2017-01-14 15:40 | PDOC PROGRESS REPORT ---
Subjective Progress Note for:: 01/14/17 Subjective:: Patient feels quite short of breath even with rest and of course with minimal exertion. She is continuing to be orthopnea. Has not reached the point of being on BiPAP. Persistent edema. Poor appetite. Fair response to current oral diuretic regimen. Labs reviewed with the patient. Physical Exam Vital Signs: Temp Pulse Resp BP Pulse Ox 97.6 F 60 20 120/50 L 99 01/14/17 12:00 01/14/17 14:00 01/14/17 12:00 01/14/17 12:00 01/14/17 12:00 Intake & Output 01/13/17 01/14/17 01/15/17 06:59 06:59 06:59 Intake Total 1807 1077 Output Total 975 1375 Balance 832 -298 Weight 76.8 kg 70.9 kg General appearance: PRESENT: mild distress Respiratory exam: PRESENT: clear to auscultation dion, crackles. ABSENT: rhonchi Cardiovascular exam: PRESENT: gallop, +S1, +S2, systolic murmur - long drawn perdue systolic and conducted to the axill. GI/Abdominal exam: PRESENT: ascites, distended, soft. ABSENT: diminished bowel sounds, mass, organomegaly, tenderness Extremities exam: PRESENT: +1 edema Neurological exam: PRESENT: alert, awake, oriented to person, oriented to place Skin exam: ABSENT: cyanosis, erythema, mottled Results Laboratory Results: 01/14/17 06:15 01/14/17 06:15 01/14/17 01/14/17 06:15 06:15 WBC 4.8 RBC 2.87 L Hgb 8.7 L Hct 26.0 L MCV 91 MCH 30.3 MCHC 33.4 RDW 16.7 H Plt Count 157 Retic Count (auto) 4.20 H Absolute Retic 0.121 Sodium 132.1 L Potassium 3.4 L Chloride 87 L Carbon Dioxide 35 H Anion Gap 10 BUN 74 H Creatinine 2.04 H Est GFR ( Amer) 28 L Est GFR (Non-Af Amer) 23 L Glucose 193 H Calcium 10.3 H Iron 41.5 TIBC 310 % Saturation 13 Ferritin 616.00 H Vitamin B12 460.0 Folate 7.97 01/08/17 01/08/17 01/08/17 17:55 17:55 23:59 Creatine Kinase < 20 L < 20 L CK-MB (CK-2) 0.64 Troponin I 0.028 01/08/17 01/09/17 01/09/17 23:59 06:42 06:42 Creatine Kinase < 20 L CK-MB (CK-2) 0.55 0.56 Troponin I 0.058 0.137 Impressions: Chest X-Ray 01/12/17 11:00 IMPRESSION: CARDIAC ENLARGEMENT. VASCULAR CONGESTION. INCREASING PLEURAL EFFUSIONS WITH BASILAR ATELECTASIS/INFILTRATE. Assessment & Plan - Diagnosis (1) Diabetes mellitus type 2 Is this a current diagnosis for this admission?: Yes (2) Acute kidney injury superimposed on chronic kidney disease Plan: cardiorenal syndrome. She probably needs a MVR but age and co morbididties precludes her from that. I am going to convert her to IV Lasix. I had a lengthy discussion about dialysis and the pros and cons and the benefits that she might have if she were to undertake this and hopefully it could be transient. She would benefit from Dialysis and I am going to leave that discussion to DR De Luna when she returns tomorrow as she wanted some time to think over it. Meanwhile,See the response to change in intravenous diuretic regimen administration (3) Acute on chronic congestive heart failure Qualifiers: Congestive heart failure type: combined Qualified Code(s): I50.43 - Acute on chronic combined systolic (congestive) and diastolic (congestive) heart failure Is this a current diagnosis for this admission?: YesPlan: Still decompensated. Stage NYHA class IV. (4) Acute on chronic respiratory failure with hypoxemia Is this a current diagnosis for this admission?: YesPlan: Status quo. Still labored on nasal cannula. We will see the response to change in IV Lasix. (6) COPD (chronic obstructive pulmonary disease) Qualifiers: COPD type: emphysema Emphysema type: unspecified Qualified Code(s) : J43.9 - Emphysema, unspecified Is this a current diagnosis for this admission?: Yes (7) Essential hypertension Is this a current diagnosis for this admission?: YesPlan: stable.
[2017-01-14] MEDS: ISOSORBIDE MONONITRATE 60 MG TAB.ER.24H PO SCH (21:58)
[2017-01-14] MEDS: ANASTROZOLE 1 MG TABLET PO SCH (22:02)
[2017-01-14] MEDS: ATORVASTATIN CALCIUM 20 MG TABLET PO SCH (22:02)
[2017-01-14] MEDS: GABAPENTIN 100 MG CAPSULE PO SCH (22:03)
--- NOTE | 2017-01-14 22:49 | PROGRESS NOTE E ---
Progress Note NAME: JACINTA LUNSFORD : 1935 AGE: 81Y DATE: 01/14/2017 ROOM: 332 TIME SPENT: Note: I saw the patient from 7:20 a.m. to 8:00 a.m. SUBJECTIVE: The patient says she is more short of breath today. She appears to be short of breath at rest and also with minimal exertion. She does have chronic orthopnea. There is no chest pain or discomfort. There is no arrhythmia seen; she is atrial ventricularly paced. She also appears to be slightly lethargic. OBJECTIVE: GENERAL: On examination, the patient is slightly overweight. She seems to be groomed but in some mild respiratory distress at rest. VITAL SIGNS: She is afebrile with a temperature of 98.3 degrees Fahrenheit, pulse is 59 beats per minute, blood pressure is 147/55, respirations are 18 per minutes, O2 sats are 96% on BiPAP on FiO2 of 30%. HEENT: Head is atraumatic, normocephalic. Eyes: Pupils are equal, round, regular, and reactive to light and accommodation. Extraocular movements are normal. Sclerae are without any icterus and conjunctivae are pink. ENT is negative. NECK: Supple. There is mild JVD present. Carotids are equal with bilateral carotid bruits. There is no lymphadenopathy. There is no goiter. Trachea is central. LUNGS: There is dullness in both the bases but there are a few crackles. There are occasional rhonchi. There is no wheezing. CARDIOVASCULAR: S1 and S2 are heard. There is no S3 gallop. There is no S4 gallop. There is a murmur of mild aortic stenosis and significant mitral regurgitation present. There is no rub. ABDOMEN: Soft, obese and nontender. There is no hepatosplenomegaly. Bowel sounds are well heard. EXTREMITIES: Femorals are diminished. There are no femoral bruits. There is mild pedal edema. There is no cyanosis or clubbing. There is no DVT or cellulitis. There is no calf tenderness. INTAKE/OUTPUT: The patient's 24-hour intake is 1077 mL, output is 1375 mL. DIAGNOSTIC DATA: The patient's white count is 4800, hemoglobin is 8.7, hematocrit is 26, platelet count is 157. The patient's sodium is 132.0, potassium is 3.4, chloride is 87, CO2 is 35. The patient's BUN is 74, creatinine is 2.04, GFR is reduced at 23 mL, which is stage 4 chronic kidney disease, glucose is 103, calcium is 10.3, iron is 41.5, TIBC is 31, percent saturation is 13, ferritin is 616. IMPRESSION: 1. ACUTE ON CHRONIC CONGESTIVE HEART FAILURE. This is combined systolic and diastolic heart failure and also secondary to valvular disease with significant mitral regurgitation. In view of the volume overload as opined by Dr. Snyder, who has been trying to let the patient have dialysis but wants Dr. De Luna to discuss that with the family, I think the patient will do well with volume overload with dialysis, since she is getting admitted very frequently. Also this will see if the patient could have mitral valve repair or if there is no coronary artery disease or even after ISMAEL, percutaneous valve clipping. 2. ELEVATED TROPONIN-I LEVEL SECONDARY TO CONGESTIVE HEART FAILURE AND ACUTE ON CHRONIC KIDNEY DISEASE. No definite evidence of non-ST elevation WI. 3. HYPOKALEMIA. Needs replacement of potassium. Will leave that to nephrology. 4. CHRONIC RESPIRATORY FAILURE WITH HYPOXEMIA. 5. COPD. Improving, but still has bilateral effusions and basilar infiltrates. This is not much improved with increase of Lasix to 40 mg p.o. q.8 h. The cultured marble products maker has converted the patient to IV Lasix. Will continue with that. 6. CHRONIC KIDNEY DISEASE STAGE 4. The patient is still retaining fluid and weight gain and with also significant shortness of breath and also with volume overload. Will increase the patient's mitral regurgitation to the point that she will reach where no repair can be done or mitral valve issue addressed. 7. DUAL-CHAMBER PACEMAKER WITH COMPLETE HEART BLOCK. Stable. 8. VALVULAR DISEASE WITH SIGNIFICANT MITRAL REGURGITATION AND MILD AORTIC STENOSIS. Continue diuretics. Continue the patient on calcium channel blockers. Continue metolazone and continue Lasix, which has now been converted to IV Lasix. 9. DIABETES MELLITUS TYPE 2, INSULIN REQUIRING, WITH CHRONIC KIDNEY DISEASE. Continue her current insulin. 10. DEPRESSION. 11. HYPERLIPIDEMIA. Note, 30 minutes spent on this patient with more than 50% of the time spent on direct patient care. Her patient's medications have been reviewed and discussed with the patient and patient's family. Also encouraged the patient to agree to undergo dialysis if that is what the recommendation of Dr. De Luna is. Thanking you. Will follow with you. NOTE: This is a very highly complex decision-making case. DICTATING PHYSICIAN: KEN GIBSON M.D. [id number] PHY#: [id number] ID: [id number] JOB#: [id number] ACCT: [id number] cc: >
[2017-01-15] MEDS: FUROSEMIDE INJ/PF 20 MG/2 ML SDV IV SCH ×3 (05:43→22:05)
[2017-01-15 06:45] LABS: ANION GAP 10 (5-19); BLOOD UREA NITROGEN 75 mg/dL (7-20); CALCIUM 10.2 mg/dL (8.4-10.2); CARBON DIOXIDE 34 mmol/L (22-30); CHLORIDE 87 mmol/L (98-107); CREATININE RESULT 2.19 mg/dL (0.52-1.25); GLUCOSE 199 mg/dL (75-110); SODIUM 131.3 mmol/L (137-145)
[2017-01-15] MEDS ORDERED: FLUTICASONE NASAL SPRAY 50 MCG/SPRY 120 SPRAY/16 GM NASL PRN (10:00)
[2017-01-15] MEDS: ENOXAPARIN SODIUM INJ 30 MG/0.3 ML DISP.SYRIN SUBCUT SCH (10:33)
[2017-01-15] MEDS: INSULIN LISPRO 100 UNIT/ML 3 ML VIAL SUBCUT PRN ×3 (10:33→17:31)
[2017-01-15] MEDS: POTASSIUM CHLORIDE 10 MEQ TABLET.SA PO SCH ×2 (10:34→17:33)
[2017-01-15] MEDS: OMEGA-3 ACID ETHYL ESTERS 1 GM CAPSULE PO SCH ×2 (10:34→17:33)
[2017-01-15] MEDS: DILTIAZEM HCL 240 MG CAPSULE.CR PO SCH ×2 (10:34→22:07)
[2017-01-15] MEDS: PAROXETINE HCL 20 MG TABLET PO SCH (10:34)
[2017-01-15] MEDS: HYDROCODONE/ACETAMINOPHEN 10-325 MG TABLET PO PRN ×2 (10:35→15:41)
[2017-01-15] MEDS: METOLAZONE 2.5 MG TABLET PO SCH (10:35)
[2017-01-15] MEDS: FAMOTIDINE 20 MG TABLET PO SCH (10:35)
[2017-01-15] MEDS: ALLOPURINOL 100 MG TABLET PO SCH (10:35)
[2017-01-15] MEDS: MAGNESIUM OXIDE 400 MG TABLET PO SCH ×3 (10:36→17:34)
[2017-01-15] MEDS: CARVEDILOL 12.5 MG TABLET PO SCH ×2 (10:36→22:06)
[2017-01-15] MEDS: ASPIRIN 81 MG TABLET, ENT COATED PO SCH (10:36)
[2017-01-15] MEDS: POLYETHYLENE GLYCOL 3350 POWDER 17 GM/1 PACKET PO SCH (10:37)
[2017-01-15] MEDS: DOCUSATE SODIUM 100 MG CAPSULE PO SCH ×2 (10:37→17:34)
--- NOTE | 2017-01-15 11:13 | PDOC PROGRESS REPORT ---
Subjective Progress Note for:: 01/15/17 Subjective:: reason for visit: f/u heart failure, CKD, hypoxia hospital course: per other's notes - "JACINTA LUNSFORD is an 81 year old female with multiple medical problems including diastolic congestive heart failure, chronic kidney disease, COPD, mitral regurgitation, and obesity. She has had numerous hospitalizations over the past 5 years. Medication management has been difficult because of her cardiorenal syndrome. She is followed by Dr. Jewell for cardiology and Dr. De Luna for nephrology. She presented 01/08/2017 with increased work of breathing. The chest x-ray showed vascular congestion. While getting up to the commode in the emergency department she had an oxygen desaturation into the 80s, and then into the 60s. She received a dose of Lasix and began diuresing. She had a nebulizer treatment and this also seemed to help. She denied chest pain. When I saw her in the emergency department she was wearing BiPAP. She confirmed a DO NOT INTUBATE status. The patient was admitted to the intermediate ICU for further evaluation and treatment. She diuresed well on IV Lasix. Rx changed to PO 01/11. Total fluid balance this admission is -4.6L. She remains on BiPAP prn but is now tolerating nasal O2 for some time. She is breathing more easily but this is variable. At times she is very SOB. Cardiology is following and await Nephro consultation. May need to reconsult Dr. De Luna in the AM." I inherited her care Friday and she was still c/o SOA with minimal exertion, still fatigues correction through the day and requires further BiPAP tx; overall feels better but clearly not back to baseline. Nephrology is seeing but we are awaiting dr de luna who knows her best, hopefully sometime later today. Her severe mitral regurg is complicating her volume status, competing with her failing renal function to create a perfect storm. ideally she would undergo MV replacement but would require heart cath with dye prior to the procedure likely resulting in need for hemodialysis. she is making slow steady progress, did not require BIPAP all day Friday until time for sleep, tolerated overnight but is off again Fri. ROS: as above, still weak and wants to try to start moving around some, maybe even to the chair today; denies chest pain, fevers/chills, emesis, diarrhea, total 10 systems reviewed remaining systems negative Physical Exam Vital Signs: Temp Pulse Resp BP Pulse Ox 97.7 F 57 L 16 148/51 H 95 01/15/17 07:05 01/15/17 07:05 01/15/17 07:05 01/15/17 07:05 01/15/17 07:05 Intake & Output 01/14/17 01/15/17 01/16/17 06:59 06:59 06:59 Intake Total 1077 1502 Output Total 1375 1650 Balance -298 -148 Weight 70.9 kg 75.7 kg General appearance: PRESENT: no acute distress, obese, well-developed, well- nourished Head exam: PRESENT: atraumatic, normocephalic Eye exam: ABSENT: conjunctival injection, scleral icterus Mouth exam: PRESENT: dry mucosa, neck supple Neck exam: ABSENT: tracheal deviation Respiratory exam: PRESENT: rales - R>L bases, unlabored. ABSENT: accessory muscle use, wheezes Cardiovascular exam: PRESENT: RRR, systolic murmur Pulses: PRESENT: normal radial pulses, normal dorsalis pedis pul GI/Abdominal exam: PRESENT: normal bowel sounds, soft. ABSENT: tenderness Extremities exam: PRESENT: +1 edema - dependent tissues, sacrummost notably Musculoskeletal exam: PRESENT: full ROM - but weak, 4/5 at best. ABSENT: tenderness Neurological exam: PRESENT: alert, awake, oriented to person, oriented to place , oriented to situation Psychiatric exam: PRESENT: appropriate affect, normal mood Skin exam: PRESENT: dry, warm Results Laboratory Results: 01/14/17 06:15 01/15/17 05:27 01/14/17 01/15/17 06:15 05:27 Sodium 131.3 L Potassium 4.0 Chloride 87 L Carbon Dioxide 34 H Anion Gap 10 BUN 75 H Creatinine 2.19 H Est GFR ( Amer) 26 L Est GFR (Non-Af Amer) 22 L Glucose 199 H Calcium 10.2 Transferrin 220 01/08/17 01/08/17 01/08/17 17:55 17:55 23:59 Creatine Kinase < 20 L < 20 L CK-MB (CK-2) 0.64 Troponin I 0.028 01/08/17 01/09/17 01/09/17 23:59 06:42 06:42 Creatine Kinase < 20 L CK-MB (CK-2) 0.55 0.56 Troponin I 0.058 0.137 Impressions: Chest X-Ray 01/12/17 11:00 IMPRESSION: CARDIAC ENLARGEMENT. VASCULAR CONGESTION. INCREASING PLEURAL EFFUSIONS WITH BASILAR ATELECTASIS/INFILTRATE. Assessment & Plan - Diagnosis (1) Acute on chronic respiratory failure with hypoxemia Is this a current diagnosis for this admission?: YesPlan: improved but not back to baseline. continue attempts to diurese and wean off BiPAP. add IS. (2) COPD (chronic obstructive pulmonary disease) Qualifiers: COPD type: emphysema Emphysema type: unspecified Qualified Code(s) : J43.9 - Emphysema, unspecified Is this a current diagnosis for this admission?: YesPlan: without acute exacerbation but certainly complicates her recovery. (3) Chronic kidney disease, stage IV (severe) Is this a current diagnosis for this admission?: YesPlan: renal fxn waxing/waning, not sure how much more they can take; defer to her mixing plant dumper, need to discuss alf plan with dr de luna when she is available. continue to monitor for now. (4) Mitral regurgitation Qualifiers: Cardiac valve disease etiology: nonrheumatic Qualified Code(s): I34.0 - Nonrheumatic mitral (valve) insufficiency Is this a current diagnosis for this admission?: YesPlan: severe and certainly complicates her volume and respiratory status. not good candidate at this time for valve replacement until or unless she is considered for hemodialysis to allow for heart cath and possible MV replacement if indicated. (5) Acute on chronic diastolic (congestive) heart failure Is this a current diagnosis for this admission?: YesPlan: improved but not back to baseline. continue attempts at diuresis (6) Cardiorenal syndrome with renal failure Is this a current diagnosis for this admission?: Yes - Time Time Spent with patient: 25-34 minutes - Plan Summary Plan Summary: start PT; OOB as tolerated starting today
[2017-01-15] MEDS: SODIUM CHLORIDE NASAL SPRAY 44 ML NASL SCH ×3 (13:03→22:25)
--- NOTE | 2017-01-15 16:18 | PDOC PROGRESS REPORT ---
Subjective Progress Note for:: 01/15/17 Subjective:: Patient still does not feel good. Has chronic malaise. Has exertional shortness of breath. She however did get to the bedside commode yesterday rather than sitting on the bedpan which is been quite difficult and stressful for her.Reviewed medications and labs. Patient still undecided about the initiation of hemodialysis. Physical Exam Vital Signs: Temp Pulse Resp BP Pulse Ox 97.8 F 60 17 140/51 H 99 01/15/17 11:58 01/15/17 14:00 01/15/17 11:58 01/15/17 11:58 01/15/17 11:58 Intake & Output 01/14/17 01/15/17 01/16/17 06:59 06:59 06:59 Intake Total 1077 1502 360 Output Total 1375 1650 600 Balance -298 -148 -240 Weight 70.9 kg 75.7 kg General appearance: PRESENT: disheveled - And looks very debilitated and frail. , mild distress Respiratory exam: PRESENT: clear to auscultation dion, crackles. ABSENT: rhonchi Cardiovascular exam: PRESENT: gallop, +S1, +S2, systolic murmur - long drawn perdue systolic and conducted to the axill. GI/Abdominal exam: PRESENT: ascites, distended, soft. ABSENT: diminished bowel sounds, mass, organomegaly, tenderness Extremities exam: PRESENT: +1 edema Neurological exam: PRESENT: awake, oriented to person, oriented to place, oriented to time Results Laboratory Results: 01/14/17 06:15 01/15/17 05:27 01/14/17 01/15/17 06:15 05:27 Sodium 131.3 L Potassium 4.0 Chloride 87 L Carbon Dioxide 34 H Anion Gap 10 BUN 75 H Creatinine 2.19 H Est GFR ( Amer) 26 L Est GFR (Non-Af Amer) 22 L Glucose 199 H Calcium 10.2 Transferrin 220 01/08/17 01/08/17 01/08/17 17:55 17:55 23:59 Creatine Kinase < 20 L < 20 L CK-MB (CK-2) 0.64 Troponin I 0.028 01/08/17 01/09/17 01/09/17 23:59 06:42 06:42 Creatine Kinase < 20 L CK-MB (CK-2) 0.55 0.56 Troponin I 0.058 0.137 Impressions: Chest X-Ray 01/12/17 11:00 IMPRESSION: CARDIAC ENLARGEMENT. VASCULAR CONGESTION. INCREASING PLEURAL EFFUSIONS WITH BASILAR ATELECTASIS/INFILTRATE. Assessment & Plan - Diagnosis (1) Diabetes mellitus type 2 Is this a current diagnosis for this admission?: Yes (2) Acute kidney injury superimposed on chronic kidney disease Plan: cardiorenal syndrome. She probably needs a MVR but age and co morbididties precludes her from that.I did again discuss about the potential benefits of the initiation of acute dialysis hopefully transient in this patient the current situation.Discussed the potential therapeutic and diagnostic benefits of initiation of dialysis. However she wants to wait to Dr. De Luna returns tomorrow. (3) Acute on chronic congestive heart failure Qualifiers: Congestive heart failure type: combined Qualified Code(s): I50.43 - Acute on chronic combined systolic (congestive) and diastolic (congestive) heart failure Is this a current diagnosis for this admission?: YesPlan: Some better but still decompensated. See discussion is done earlier with the patient. Patient is to continue on current IV diuretics. (4) Acute on chronic respiratory failure with hypoxemia Is this a current diagnosis for this admission?: YesPlan: Some improvement. Monitor closely. (5) Anemia of chronic disease Plan: Needs to initiate erythropoietin. (6) COPD (chronic obstructive pulmonary disease) Qualifiers: COPD type: emphysema Emphysema type: unspecified Qualified Code(s) : J43.9 - Emphysema, unspecified Is this a current diagnosis for this admission?: Yes (7) Essential hypertension Is this a current diagnosis for this admission?: YesPlan: stable.
[2017-01-15] MEDS: ATORVASTATIN CALCIUM 20 MG TABLET PO SCH (22:06)
[2017-01-15] MEDS: GABAPENTIN 100 MG CAPSULE PO SCH (22:07)
[2017-01-15] MEDS: ISOSORBIDE MONONITRATE 60 MG TAB.ER.24H PO SCH (22:08)
[2017-01-15] MEDS: ANASTROZOLE 1 MG TABLET PO SCH (22:09)
--- NOTE | 2017-01-15 22:24 | PROGRESS NOTE E ---
Progress Note NAME: JACINTA LUNSFORD : 1935 AGE: 81Y DATE: 01/15/2017 ROOM: 332 TIME SPENT: The patient was seen from 11:15 a.m. to 11:45 a.m. SUBJECTIVE: Note that the patient states she is slightly less short of breath but her lungs sound the same. Her leg edema is almost the same. Her intake today is slightly less than her output but only marginally so. She remains in AV paced rhythm. There is orthopnea still present. There is no chest pain or discomfort. The patient denies any cough or sputum production. OBJECTIVE: VITAL SIGNS: On examination, the patient is afebrile. Her pulse is 60 beats per minute. Blood pressure is 139/52, respirations are 20 per minute, O2 sats are 97% on 4 L. GENERAL: On examination, the patient is mildly obese due to weight gain. She has gained weight of almost 5 kg compared to 01/13. She seems to be well groomed but does not seem to be in any major respiratory distress. HEENT: Head is atraumatic, normocephalic. Eyes: Pupils are equal, round, regular, and reactive to light and accommodation. Extraocular movements are normal. Sclerae are without any icterus and conjunctivae are pink. ENT is negative. NECK: Supple. There is still some mild JVD present. Carotids are equal with bilateral carotid bruits. There is no lymphadenopathy. There is no goiter. Trachea is central. LUNGS: There is dullness in both bases with a few crackles. There are occasional rhonchi. There is no wheezing. CARDIOVASCULAR: S1 and S2 are heard. There is no S3 gallop. There is no S4 gallop. There is a murmur of mild aortic stenosis present and also significant mitral regurgitation murmur present. There is no rub. ABDOMEN: Soft, obese and nontender. There is no hepatosplenomegaly. Bowel sounds are well heard. EXTREMITIES: Femorals are diminished. There are no femoral bruits. There is mild pedal edema. There is no cyanosis or clubbing. There is no DVT or cellulitis. There is no calf tenderness. INTAKE/OUTPUT: The patient's 24-hour intake is 1502 mL, output is 1650 mL. DIAGNOSTIC DATA: The patient's sodium is 131.3, potassium is 4.0, chloride is 87, CO2 is 34. The patient's BUN is 75, creatinine is 2.109, GFR is reduced at 22 mL, which is further down but still CKD stage 4, glucose is 109, the patient's calcium is 10.2. IMPRESSION: 1. ACUTE ON CHRONIC CONGESTIVE HEART FAILURE. This is combined systolic and diastolic heart failure and also secondary to valvular disease with significant mitral regurgitation. In view of the volume overload, the patient has systolic heart failure. In spite of all the diuretics given, the patient is still not diuresing a whole lot and has gained weight and has retained fluid. In view of this, would recommend that the patient at least temporarily get dialysis to see if that will take off the fluid from the patient's body. Also this will help in whether the mitral valve regurgitation is static or dynamic. 2. ELEVATED TROPONIN-I LEVEL SECONDARY TO CONGESTIVE HEART FAILURE AND ACUTE ON CHRONIC KIDNEY DISEASE. No definite evidence of non-ST elevation WI. 3. CHRONIC RESPIRATORY FAILURE WITH HYPOXEMIA. The patient uses BiPAP at night and nasal O2 in the morning. 4. COPD. Improving but still has bilateral effusions and basilar infiltrates. Is not much improved with increase of Lasix to IV. 5. CHRONIC KIDNEY DISEASE STAGE 4. The patient is still retaining fluid and weight gain and with also significant shortness of breath and also with volume overload. In view of the volume overload, the heart size becomes big and this may cause increase size of the mitral valve leaflets causing significant more noncoaptation of the valve leaflets, causing more mitral regurgitation. 6. 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 Stable. 7. VALVULAR DISEASE WITH MILD AORTIC STENOSIS AND SEVERE MITRAL REGURGITATION. It is not clear whether the patient's mitral regurgitation is static or dynamic. Would recommend dialysis to see if the volume overload is overcome. If the volume overload is overcome and if the fluid is taken off the patient to see if this will cause the mitral regurgitation to be less, in which case it will be dynamic or whether it is a mixture of mitral valve static disease versus dynamic disease. This will help in determining whether the patient needs mitral valve clipping or not. diuresis improves . Continue the patient on calcium channel blockers. Continue metolazone and continue Lasix, which has now been converted to IV Lasix 8. DIABETES MELLITUS TYPE 2, INSULIN REQUIRING, WITH CHRONIC KIDNEY DISEASE. Continue her current insulin. 9. DEPRESSION. 10. HYPERLIPIDEMIA. RECOMMENDATIONS: Again discussed with patient and patient's brother about the dialysis. They want to talk to Dr. De Luna and see if she agrees with this plan. Note that the patient was seen from 11:15 a.m. to 11:45 a.m. and more than 50% of the time spent on patient's direct care and medications have been reviewed. Also discussions with other physicians on the case and formulating a care plan. Awaiting Dr. De Luna's decision when she comes back to see the patient in the a.m. Will follow with you. Thanking you. Note that this is significantly complex medical decision-making in view of the multiple factors present such as renal failure, congestive heart failure, mitral regurgitation, diabetes mellitus, and volume overload/CHF. DICTATING PHYSICIAN: KEN GIBSON M.D. [id number] TOYY#: [id number] ID: [id number] JOB#: [id number] ACCT: [id number] cc: >
[2017-01-16] MEDS ORDERED: OXYCODONE HCL IR 5 MG TABLET PO PRN (00:23)
[2017-01-16 06:17] LABS: ANION GAP 10 (5-19); BLOOD UREA NITROGEN 72 mg/dL (7-20); CALCIUM 10.4 mg/dL (8.4-10.2); CARBON DIOXIDE 35 mmol/L (22-30); CHLORIDE 89 mmol/L (98-107); CREATININE RESULT 1.95 mg/dL (0.52-1.25); GLUCOSE 186 mg/dL (75-110); SODIUM 134.4 mmol/L (137-145)
[2017-01-16] MEDS: FUROSEMIDE INJ/PF 20 MG/2 ML SDV IV SCH ×3 (06:35→22:00)
[2017-01-16] MEDS: HYDROCODONE/ACETAMINOPHEN 10-325 MG TABLET PO PRN ×2 (11:24→20:33)
[2017-01-16] MEDS: CARVEDILOL 12.5 MG TABLET PO SCH ×2 (11:26→21:59)
[2017-01-16] MEDS: POTASSIUM CHLORIDE 10 MEQ TABLET.SA PO SCH ×2 (11:27→17:25)
[2017-01-16] MEDS: OMEGA-3 ACID ETHYL ESTERS 1 GM CAPSULE PO SCH ×2 (11:27→17:25)
[2017-01-16] MEDS: MAGNESIUM OXIDE 400 MG TABLET PO SCH ×3 (11:27→17:25)
[2017-01-16] MEDS: DILTIAZEM HCL 240 MG CAPSULE.CR PO SCH ×2 (11:27→21:41)
[2017-01-16] MEDS: FAMOTIDINE 20 MG TABLET PO SCH (11:28)
[2017-01-16] MEDS: ASPIRIN 81 MG TABLET, ENT COATED PO SCH (11:28)
[2017-01-16] MEDS: DOCUSATE SODIUM 100 MG CAPSULE PO SCH ×2 (11:28→17:25)
[2017-01-16] MEDS: ALLOPURINOL 100 MG TABLET PO SCH (11:28)
[2017-01-16] MEDS: PAROXETINE HCL 20 MG TABLET PO SCH (11:28)
[2017-01-16] MEDS: METOLAZONE 2.5 MG TABLET PO SCH (11:28)
[2017-01-16] MEDS: ENOXAPARIN SODIUM INJ 30 MG/0.3 ML DISP.SYRIN SUBCUT SCH (11:29)
[2017-01-16] MEDS: SODIUM CHLORIDE NASAL SPRAY 44 ML NASL SCH ×4 (11:30→22:01)
[2017-01-16] MEDS: POLYETHYLENE GLYCOL 3350 POWDER 17 GM/1 PACKET PO SCH (11:33)
[2017-01-16] MEDS: INSULIN LISPRO 100 UNIT/ML 3 ML VIAL SUBCUT PRN ×3 (14:06→22:39)
--- NOTE | 2017-01-16 15:29 | PDOC PROGRESS REPORT ---
Subjective Progress Note for:: 01/16/17 Subjective:: reason for visit: f/u heart failure, CKD, hypoxia hospital course: per other's notes - "JACINTA LUNSFORD is an 81 year old female with multiple medical problems including diastolic congestive heart failure, chronic kidney disease, COPD, mitral regurgitation, and obesity. She has had numerous hospitalizations over the past 5 years. Medication management has been difficult because of her cardiorenal syndrome. She is followed by Dr. Jewell for cardiology and Dr. De Luna for nephrology. She presented 01/08/2017 with increased work of breathing. The chest x-ray showed vascular congestion. While getting up to the commode in the emergency department she had an oxygen desaturation into the 80s, and then into the 60s. She received a dose of Lasix and began diuresing. She had a nebulizer treatment and this also seemed to help. She denied chest pain. When I saw her in the emergency department she was wearing BiPAP. She confirmed a DO NOT INTUBATE status. The patient was admitted to the intermediate ICU for further evaluation and treatment. She diuresed well on IV Lasix. Rx changed to PO 01/11. Total fluid balance this admission is -4.6L. She remains on BiPAP prn but is now tolerating nasal O2 for some time. She is breathing more easily but this is variable. At times she is very SOB. Cardiology is following and await Nephro consultation. May need to reconsult Dr. De Luna in the AM." I inherited her care Friday and she was still c/o SOA with minimal exertion, still fatigues correction through the day and requires further BiPAP tx; overall feels better but clearly not back to baseline. Nephrology is seeing but we are awaiting dr de luna who knows her best, hopefully sometime later today. Her severe mitral regurg is complicating her volume status, competing with her failing renal function to create a perfect storm. ideally she would undergo MV replacement but would require heart cath with dye prior to the procedure likely resulting in need for hemodialysis. As it is, she is making slow steady progress, but still fatigues quickly requiring intermittent BiPAP support for increased WOB. ROS: as above, still weak and back on BIPAP; denies chest pain, fevers/chills, emesis, diarrhea, total 10 systems reviewed remaining systems negative Physical Exam Vital Signs: Temp Pulse Resp BP Pulse Ox 97.6 F 60 16 166/52 H 93 01/16/17 11:19 01/16/17 11:56 01/16/17 11:56 01/16/17 11:19 01/16/17 11:56 Intake & Output 01/15/17 01/16/17 01/17/17 06:59 06:59 06:59 Intake Total 1502 1875 240 Output Total 1650 1700 650 Balance -148 175 -410 Weight 75.7 kg 72 kg General appearance: PRESENT: no acute distress - comfortable on the BiPAP, well- developed, well-nourished Head exam: PRESENT: atraumatic, normocephalic Eye exam: ABSENT: conjunctival injection, scleral icterus Mouth exam: PRESENT: moist, neck supple Neck exam: PRESENT: full ROM. ABSENT: tracheal deviation Respiratory exam: PRESENT: rales - R>L, unlabored - with BiPAP on. ABSENT: accessory muscle use, tachypnea Cardiovascular exam: PRESENT: RRR, systolic murmur Pulses: PRESENT: normal radial pulses, normal dorsalis pedis pul GI/Abdominal exam: PRESENT: normal bowel sounds, soft. ABSENT: tenderness Extremities exam: PRESENT: pedal edema Psychiatric exam: PRESENT: appropriate affect, normal mood Skin exam: PRESENT: warm. ABSENT: dry Results Laboratory Results: 01/14/17 06:15 01/16/17 05:24 01/16/17 05:24 Sodium 134.4 L Potassium 4.0 Chloride 89 L Carbon Dioxide 35 H Anion Gap 10 BUN 72 H Creatinine 1.95 H Est GFR ( Amer) 30 L Est GFR (Non-Af Amer) 25 L Glucose 186 H Calcium 10.4 H 01/08/17 01/08/17 01/08/17 17:55 17:55 23:59 Creatine Kinase < 20 L < 20 L CK-MB (CK-2) 0.64 Troponin I 0.028 01/08/17 01/09/17 01/09/17 23:59 06:42 06:42 Creatine Kinase < 20 L CK-MB (CK-2) 0.55 0.56 Troponin I 0.058 0.137 Impressions: Chest X-Ray 01/12/17 11:00 IMPRESSION: CARDIAC ENLARGEMENT. VASCULAR CONGESTION. INCREASING PLEURAL EFFUSIONS WITH BASILAR ATELECTASIS/INFILTRATE. Assessment & Plan - Diagnosis (1) Acute on chronic respiratory failure with hypoxemia Is this a current diagnosis for this admission?: YesPlan: improved but not back to baseline. continue attempts to diurese and wean off BiPAP. continue IS. (2) COPD (chronic obstructive pulmonary disease) Qualifiers: COPD type: emphysema Emphysema type: unspecified Qualified Code(s) : J43.9 - Emphysema, unspecified Is this a current diagnosis for this admission?: YesPlan: without acute exacerbation but certainly complicates her recovery. 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 continue to monitor for now. (4) Mitral regurgitation Qualifiers: Cardiac valve disease etiology: nonrheumatic Qualified Code(s): I34.0 - Nonrheumatic mitral (valve) insufficiency Is this a current diagnosis for this admission?: YesPlan: severe and certainly complicates her volume and respiratory status. not good candidate at this time for valve replacement until or unless she is considered for hemodialysis to allow for heart cath and possible MV replacement if indicated. (5) Acute on chronic diastolic (congestive) heart failure Is this a current diagnosis for this admission?: YesPlan: improved but not back to baseline. continue attempts at diuresis (6) Cardiorenal syndrome with renal failure Is this a current diagnosis for this admission?: Yes - Time Time Spent with patient: 25-34 minutes - Plan Summary Plan Summary: if she agrees to dialysis then proceed per dr de luna as to timing of cardiothoracic evaluation for MVR. if she decides against then continue current care and consider palliative care consult as this may be as good as it gets for her.
--- NOTE | 2017-01-16 19:37 | PDOC PROGRESS REPORT ---
Subjective Progress Note for:: 01/16/17 Subjective:: Patient continues to be short of breath on minimal exertion. She told me that this morning she could not catch her breath again. She requires to sleep with the BiPAP to be comfortable at least in terms of her breathing. Patient relates that prior to admission her breathing decompensated overnight. She said she gained 10 pounds for a couple of days prior to admission. She said she took an extra dose of torsemide as I instructed her once she starts becoming more short of breath and gains more than 2 pounds but that did not prevent her from going to the emergency room. So far since admission she has been on diuretics and overall -4 L per fluid balance. She continues to make urine however it is obviously not enough that she continues to be short of breath. Patient is also clinically very deconditioned. Physical Exam Vital Signs: Temp Pulse Resp BP Pulse Ox 97.7 F 60 20 133/53 H 98 01/16/17 15:43 01/16/17 15:43 01/16/17 15:43 01/16/17 15:43 01/16/17 16:00 Intake & Output 01/15/17 01/16/17 01/17/17 06:59 06:59 06:59 Intake Total 1502 1875 930 Output Total 1650 1700 1275 Balance -148 175 -345 Weight 75.7 kg 72 kg Exam: General appearance: PRESENT: no acute distress, cooperative, seems comfortable , well-developed, well-nourished Head exam: PRESENT: atraumatic, normocephalic Eye exam: PRESENT: conjunctiva pale, PERRLA. ABSENT: scleral icterus Neck exam: ABSENT: JVD Respiratory exam: PRESENT: Diminished breath sounds. Positive bilateral mid to lower lung briggs crackles ABSENT: Rhonchi, unlabored, wheezes Cardiovascular exam: PRESENT: Regular rate rhythm -+S1, +S2. Grade 2/6 systolic murmur ABSENT: diastolic murmur GI/Abdominal exam: PRESENT: normal bowel sounds, soft. ABSENT: guarding, mass, tenderness Extremities exam: Grade 1 bilateral lower extremity pitting edema Neurological exam: PRESENT: alert, awake, oriented to person, place and time. Skin exam: PRESENT: dry, warm Results Laboratory Results: 01/14/17 06:15 01/16/17 05:24 01/16/17 05:24 Sodium 134.4 L Potassium 4.0 Chloride 89 L Carbon Dioxide 35 H Anion Gap 10 BUN 72 H Creatinine 1.95 H Est GFR ( Amer) 30 L Est GFR (Non-Af Amer) 25 L Glucose 186 H Calcium 10.4 H 01/08/17 01/08/17 01/08/17 17:55 17:55 23:59 Creatine Kinase < 20 L < 20 L CK-MB (CK-2) 0.64 Troponin I 0.028 01/08/17 01/09/17 01/09/17 23:59 06:42 06:42 Creatine Kinase < 20 L CK-MB (CK-2) 0.55 0.56 Troponin I 0.058 0.137 Impressions: Chest X-Ray 01/12/17 11:00 IMPRESSION: CARDIAC ENLARGEMENT. VASCULAR CONGESTION. INCREASING PLEURAL EFFUSIONS WITH BASILAR ATELECTASIS/INFILTRATE. Assessment & Plan - Diagnosis (1) Acute on chronic congestive heart failure Qualifiers: Congestive heart failure type: combined Qualified Code(s): I50.43 - Acute on chronic combined systolic (congestive) and diastolic (congestive) heart failure Is this a current diagnosis for this admission?: YesPlan: Due to severe valvular heart disease with severe mitral regurgitation and aortic stenosis. Patient continues to be on fluid overload despite optimizing diuretics. This is the patient's third hospitalization presenting with exactly the same scenario of acute pulmonary edema with suboptimal response to diuretics. I spoke to Dr. Chinchilla and he indicated that patient would eventually need a cardiac catheterization and further evaluation of the mitral valve once the patient has been relieved of fluid overload. Since the patient' s response to diuretic is suboptimal the only other way to do it is to do ultrafiltration using her dialysis machine. Given this I agree with this plan. The patient today in the presence of her regarding the above plan. He will do acute hemodialysis with ultrafiltration to relieve the fluid overload. I also discussed the risk of contrast nephropathy once cardiac catheterization is done. Explained to the patient and her that her kidney function can actually get worse with contrast and may eventually need long-term hemodialysis if that happens. However I also explained to her that she may not really have a chance because if we do not evaluate her heart she will continue the same condition which will just be a vicious cycle. Patient understood the benefits and risks of the plan and agreed to proceed. (2) Pulmonary edema Qualifiers: Chronicity: acute Qualified Code(s): J81.0 - Acute pulmonary edema Is this a current diagnosis for this admission?: Yes (3) Chronic kidney disease, stage IV (severe) Is this a current diagnosis for this admission?: YesPlan: This is due to cardiorenal syndrome. As stated above we will proceed with ultrafiltration/hemodialysis to relieve fluid overload in preparation for cardiac evaluation. Wether the patient will need long-term hemodialysis dependent on patient's response. For now we are planning to do hopefully a temporary acute hemodialysis with ultrafiltration. (4) Acute on chronic respiratory failure with hypoxemia Is this a current diagnosis for this admission?: YesPlan: Due to acute on chronic congestive heart failure. (5) Anemia of chronic disease Is this a current diagnosis for this admission?: YesPlan: We will start the patient on Procrit during hemodialysis. (6) Valvular heart disease Is this a current diagnosis for this admission?: YesPlan: Patient with severe mitral regurgitation and aortic stenosis. (7) Diabetes mellitus type 2 Is this a current diagnosis for this admission?: Yes (8) Essential hypertension Is this a current diagnosis for this admission?: Yes - Notes Notes: Discussed the case with Dr. Chinchilla, the patient and her . - Time Time with patient: Greater than 35 minutes
[2017-01-16] MEDS ORDERED: TUBERCULIN,PURIF.PROT.DERIV. 5 TU/0.1 ML TEST 1 ML VIAL ID ONE ×2 (20:00)
--- NOTE | 2017-01-16 20:29 | PROGRESS NOTE E ---
Progress Note NAME: JACINTA LUNSFORD : 1935 AGE: 81Y DATE: 01/16/2017 ROOM: 332 SUBJECTIVE: Note that the patient still complains of shortness of breath and orthopnea. There is no chest pain or discomfort. She is in AV paced rhythm. There is no ventricular arrhythmia. There is no chest pain. She has no PND. She continues to have leg edema. There is no TIA or CVA symptoms. OBJECTIVE: GENERAL: On examination the patient is mildly obese and in some distress. Mild respiratory distress when she is in bed and moderate when she moves around even in bed. Yesterday she had lost about 3.7 *------*. VITAL SIGNS: On examination she is afebrile with a temperature of 97.5 degrees Fahrenheit. Pulse is 60 beats per minute. Blood pressure 149/49. Respirations are 19 per minute. Oxygen sats are 95% on BiPAP with an FiO2 of 50%. HEENT: Head is atraumatic, normocephalic. Eyes: Pupils are equal, round, regular, and reactive to light and accommodation. Extraocular movements are normal. Sclerae are without any icterus and conjunctivae are pink. ENT is negative. NECK: Supple. There is still some mild JVD present. Carotids are equal with bilateral carotid bruits. There is no lymphadenopathy. There is no goiter. Trachea is central. LUNGS: There is dullness in both the bases with a few crackles. There are occasional rhonchi. There is no wheezing. CARDIOVASCULAR: S1 and S2 is heard. There is no S3 gallop. There is no S4 gallop. There is a murmur of mild aortic stenosis present and also there is significant mitral regurgitation murmur present with the murmur being in the apex with radiation to the left axilla. There is no rub. ABDOMEN: Soft, obese and nontender. There is no hepatosplenomegaly. Bowel sounds are well heard. EXTREMITIES: Femorals are diminished. There are no femoral bruits. There is mild pedal edema. There is no cyanosis or clubbing. There is no DVT or cellulitis. CENTRAL NERVOUS SYSTEM: The patient is conscious, slightly drowsy with no focal deficits. PSYCHIATRIC: The patient appears to be depressed but does not appear to be agitated. Her judgment and insight although are intact. INTAKE/OUTPUT: The patient's 24 hour intake is 1875 mL, output is 1700 mL. DIAGNOSTIC DATA: The patient's sodium is 134.4, potassium is 4.0, chloride is 89, CO2 is 35. The patient's BUN is 72, creatinine is 1.95, GFR is slightly improved to 25, glucose is 186, the calcium is 10.4. IMPRESSION: 1. ACUTE ON CHRONIC CONGESTIVE HEART FAILURE. THIS IS COMBINED SYSTOLIC AND DIASTOLIC HEART FAILURE DUE TO THE VALVULAR DISEASE AND ALSO VOLUME OVERLOAD SECONDARY TO RENAL FAILURE. In view of this would recommend to place temporary dialysis to see if we take the fluid off the patient's body this might help a little with mitral valve regurgitation for static or dynamic, and it will also help that if the patient's mitral regurgitation is static and does not repair then the patient may undergo catheterization to make sure she has no significant coronary artery disease prior to addressing the mitral valve issue. 2. ELEVATED TROPONIN I SECONDARY TO CONGESTIVE HEART FAILURE AND ACUTE ON CHRONIC KIDNEY DISEASE. No definite evidence of non-ST elevation myocardial infarction. 3. CHRONIC RESPIRATORY FAILURE WITH HYPOXEMIA. The patient uses BiPAP at night and nasal O2 in the morning. 4. CHRONIC OBSTRUCTIVE PULMONARY DISEASE IMPROVING. 5. CHRONIC KIDNEY DISEASE. The patient is still retaining fluid and weight gain, although she has lost close to 3.7 *------* over the few days. She still has bilateral pleural effusions and evidence of volume overload. The patient's intake is much greater than output in spite of the patient being on IV Lasix. Hence, all the more reason for dialysis to remove the fluid due to intractable volume overload. 6. DUAL CHAMBER PACEMAKER WITH A HISTORY OF COMPLETE HEART BLOCK IN THE PAST, STABLE. 7. VALVULAR DISEASE WITH MILD AORTIC STENOSIS AND SEVERE MITRAL REGURGITATION. As mentioned earlier it is not clear whether the patient's mitral regurgitation is static or dynamic. Would recommend dialysis to see if volume overload is overcome and if the fluid is taken off the patient to see if this will cause the mitral regurgitation to be less, in which case it will be a dynamic mitral regurgitation or whether it is a mixture of mitral valve static disease along with dynamic component to it. This will help determine whether the patient needs mitral valve clipping or not and cardiac catheterization. The patient is not improving on dialysis. Awaiting Dr. De Luna to make a decision. 8. DIABETES MELLITUS TYPE 2, INSULIN REQUIRING, WITH CHRONIC KIDNEY DISEASE. Continue her current insulin. 9. DEPRESSION. 10. HYPERLIPIDEMIA. RECOMMENDATIONS: Discussed with the patient the rational for my recommendation. Discussed with the patient's brother and the patient about the role of dialysis from my point of view which will take the volume overload off and this will shed better light onto the status of the mitral valve regurgitation and to see if the patient will need cath to make sure that the patient does not have significant coronary artery disease prior to addressing the mitral valve percutaneously or operatively. They are awaiting Dr. De Luna's decision, we will wait until Dr. De Luna comes back this evening and discuss with her. Discussed with the hospitalist taking care of the patient. Note 35 minutes spent on this patient with more than 50% of the time spent on patient's direct care and also reviewing the patient's medications and discussions with the patient and the patient's brother and also with the other caregiving providers on the case, including Dr. Snyder who is the operational test mechanic covering Dr. De Luna. We are all anticipating Dr. De Luna's return to discuss the issue of dialysis on this patient. Note this is significantly a highly complex medical decision-making in view of the multiple factors such as renal failure, congestive heart failure, mitral regurgitation, diabetes mellitus, and volume overload and CHF. Will follow with you. We will discuss with Dr. De Luna when she comes back. DICTATING PHYSICIAN: KEN GIBSON M.D. [id number] ARMANDO#: [id number] ID: [id number] JOB#: [id number] ACCT: [id number] cc: >
[2017-01-16] MEDS: SIMETHICONE 80 MG TAB.CHEW PO PRN (20:33)
[2017-01-16] MEDS: ANASTROZOLE 1 MG TABLET PO SCH (21:41)
[2017-01-16] MEDS: ISOSORBIDE MONONITRATE 60 MG TAB.ER.24H PO SCH (21:58)
[2017-01-16] MEDS: ATORVASTATIN CALCIUM 20 MG TABLET PO SCH (21:59)
[2017-01-16] MEDS: GABAPENTIN 100 MG CAPSULE PO SCH (22:00)
[2017-01-17] MEDS: FUROSEMIDE INJ/PF 20 MG/2 ML SDV IV SCH ×3 (05:22→22:05)
[2017-01-17 06:42] LABS: ANION GAP 10 (5-19); BLOOD UREA NITROGEN 71 mg/dL (7-20); CALCIUM 10.7 mg/dL (8.4-10.2); CARBON DIOXIDE 35 mmol/L (22-30); CHLORIDE 89 mmol/L (98-107); CREATININE RESULT 1.79 mg/dL (0.52-1.25); GLUCOSE 176 mg/dL (75-110); POTASSIUM 3.7 mmol/L (3.6-5.0); SODIUM 134.2 mmol/L (137-145)
[2017-01-17] MEDS: HYDROCODONE/ACETAMINOPHEN 10-325 MG TABLET PO PRN (06:48)
[2017-01-17] MEDS: SODIUM CHLORIDE NASAL SPRAY 44 ML NASL SCH ×4 (09:14→21:55)
[2017-01-17] MEDS: ENOXAPARIN SODIUM INJ 30 MG/0.3 ML DISP.SYRIN SUBCUT SCH (09:15)
[2017-01-17] MEDS: INSULIN LISPRO 100 UNIT/ML 3 ML VIAL SUBCUT PRN ×3 (09:17→22:51)
--- NOTE | 2017-01-17 10:56 | Operative Report ---
Operative Report DATE OF SURGERY: 01/17/17 PREOPERATIVE DIAGNOSIS: 1. End-stage renal disease. 2. Multiple comorbidities. POSTOPERATIVE DIAGNOSIS: 1. End-stage renal disease. Post insertion of temporary hemodialysis catheter. 2. Multiple comorbidities. OPERATION: An ultrasound evaluation of the right femoral vein. 2. Insertion of temporary hemodialysis catheter via real-time access in the right femoral vein. SURGEON: LALI MARTIN PRESIDING STEWARD: none ANESTHESIA: Local TISSUE REMOVED OR ALTERED: Not applicable. COMPLICATIONS: None ESTIMATED BLOOD LOSS: 2 mL. INTRAOPERATIVE FINDINGS: Of a right femoral vein which was positioned beneath the femoral artery making access somewhat challenging. Ultrasound of immeasurable benefit. Satisfactory and safe access obtained. Satisfactory and safe insertion of temporary hemodialysis catheter accomplished. Easy egress of blood and increase of heparinized solution through all 3 ports. PROCEDURE: After obtaining informed consent, the patient was positioned supine at bedside. The left groin and adjacent areas] were prepared with chlorhexidine and draped out with sterile linen. After the universal timeout the procedure commenced. A steriley sheathed ultrasound probe was used to evaluate the right femoral vein. Local anesthesia was infiltrated adjacent to the probe. Access into the right femoral was accomplished using a micropuncture needle followed, by micropuncture wire and then with a micropuncture catheter. This was followed by introduction of a 0.035 guidewire, the skin opening was enlarged slightly, serially larger dilators were now placed followed by introduction of a triaysis catheter. All of these transitions were smooth. Each lumen was aspirated of blood and irrigated with heparinized solution. The catheter was now sutured to the skin using 3-0 nylon. A Bio A patch was now applied, followed by sterile dressings. Caps were placed on the end of the each of the lumens. The procedure concluded. Copies dictated operative report to Dr. Lali Warner MD.
[2017-01-17] MEDS ORDERED: EPOETIN ALFA INJ 20000 UNIT/1 ML VIAL (RENAL) IV PRN (11:16)
[2017-01-17] MEDS ORDERED: HEPARIN SOD (PORCINE) 1,000 UNIT/ML 10 ML VIAL IV PRN (11:17)
--- NOTE | 2017-01-17 14:44 | PDOC PROGRESS REPORT ---
Subjective Progress Note for:: 01/17/17 Subjective:: reason for visit: f/u heart failure, CKD, hypoxia hospital course: per other's notes - "JACINTA LUNSFORD is an 81 year old female with multiple medical problems including diastolic congestive heart failure, chronic kidney disease, COPD, mitral regurgitation, and obesity. She has had numerous hospitalizations over the past 5 years. Medication management has been difficult because of her cardiorenal syndrome. She is followed by Dr. Gibson for cardiology and Dr. De Luna for nephrology. She presented 01/08/2017 with increased work of breathing. The chest x-ray showed vascular congestion. While getting up to the commode in the emergency department she had an oxygen desaturation into the 80s, and then into the 60s. She received a dose of Lasix and began diuresing. She had a nebulizer treatment and this also seemed to help. She denied chest pain. When I saw her in the emergency department she was wearing BiPAP. She confirmed a DO NOT INTUBATE status. The patient was admitted to the intermediate ICU for further evaluation and treatment. She diuresed well on IV Lasix. Rx changed to PO 01/11. Total fluid balance this admission is -4.6L. She remains on BiPAP prn but is now tolerating nasal O2 for some time. She is breathing more easily but this is variable. At times she is very SOB. Cardiology is following and await Nephro consultation. May need to reconsult Dr. De Luna in the AM." I inherited her care Friday and she was still c/o SOA with minimal exertion, still fatigues intermediate through the day and requires further BiPAP tx; overall feels better but clearly not back to baseline. Nephrology is seeing but we are awaiting dr de luna who knows her best, hopefully sometime later today. Her severe mitral regurg is complicating her volume status, competing with her failing renal function to create a perfect storm. ideally she would undergo MV replacement but would require heart cath with dye prior to the procedure likely resulting in need for hemodialysis. so after d/w dr de luna she has elected for ultrafiltration and dr salazar placed femoral catheter Friday morning for first dialysis later that day. ROS: as above, still weak and breathless with exertion but off the BiPAP and eating bfast this morning.; denies chest pain, fevers/chills, emesis, diarrhea, total 10 systems reviewed remaining systems negative Physical Exam Vital Signs: Temp Pulse Resp BP Pulse Ox 97.6 F 60 19 145/53 H 95 01/17/17 08:09 01/17/17 08:09 01/17/17 08:09 01/17/17 08:09 01/17/17 09:04 Intake & Output 01/16/17 01/17/17 01/18/17 06:59 06:59 06:59 Intake Total 1875 1600 510 Output Total 1700 2875 Balance 175 -1275 510 Weight 72 kg 72.1 kg General appearance: PRESENT: no acute distress, well-developed, well-nourished Head exam: PRESENT: atraumatic, normocephalic Eye exam: ABSENT: conjunctival injection, scleral icterus Mouth exam: PRESENT: moist Neck exam: PRESENT: full ROM. ABSENT: tenderness Respiratory exam: PRESENT: rales - R>L. ABSENT: rhonchi, unlabored, wheezes Cardiovascular exam: PRESENT: RRR, systolic murmur Pulses: PRESENT: normal radial pulses, normal dorsalis pedis pul GI/Abdominal exam: PRESENT: normal bowel sounds, soft. ABSENT: tenderness Extremities exam: PRESENT: pedal edema. ABSENT: calf tenderness Neurological exam: PRESENT: alert, awake, oriented to person, oriented to place , oriented to time, oriented to situation Psychiatric exam: PRESENT: appropriate affect, normal mood Skin exam: PRESENT: warm. ABSENT: dry Results Laboratory Results: 01/14/17 06:15 01/17/17 06:05 01/17/17 06:05 Sodium 134.2 L Potassium 3.7 Chloride 89 L Carbon Dioxide 35 H Anion Gap 10 BUN 71 H Creatinine 1.79 H Est GFR ( Amer) 33 L Est GFR (Non-Af Amer) 27 L Glucose 176 H Calcium 10.7 H 01/08/17 01/08/17 01/08/17 17:55 17:55 23:59 Creatine Kinase < 20 L < 20 L CK-MB (CK-2) 0.64 Troponin I 0.028 01/08/17 01/09/17 01/09/17 23:59 06:42 06:42 Creatine Kinase < 20 L CK-MB (CK-2) 0.55 0.56 Troponin I 0.058 0.137 Impressions: Chest X-Ray 01/12/17 11:00 IMPRESSION: CARDIAC ENLARGEMENT. VASCULAR CONGESTION. INCREASING PLEURAL EFFUSIONS WITH BASILAR ATELECTASIS/INFILTRATE. Assessment & Plan - Diagnosis (1) Acute on chronic respiratory failure with hypoxemia Is this a current diagnosis for this admission?: YesPlan: improved but not back to baseline. start hemodialysis today. continue IS. (2) COPD (chronic obstructive pulmonary disease) Qualifiers: COPD type: emphysema Emphysema type: unspecified Qualified Code(s) : J43.9 - Emphysema, unspecified Is this a current diagnosis for this admission?: Yes (3) Chronic kidney disease, stage IV (severe) Is this a current diagnosis for this admission?: YesPlan: stable; defer to her mapper. continue to monitor for now. (4) Mitral regurgitation Qualifiers: Cardiac valve disease etiology: nonrheumatic Qualified Code(s): I34.0 - Nonrheumatic mitral (valve) insufficiency Is this a current diagnosis for this admission?: YesPlan: discussed with dr gibson, will see how the valve responds to offloading by HD before deciding how to proceed with valve replacment evaluation. (5) Acute on chronic diastolic (congestive) heart failure Is this a current diagnosis for this admission?: Yes (6) Cardiorenal syndrome with renal failure Is this a current diagnosis for this admission?: Yes - Time Time Spent with patient: 25-34 minutes
[2017-01-17 16:36] LABS: ANION GAP 12 (5-19); CARBON DIOXIDE 29 mmol/L (22-30); CHLORIDE 95 mmol/L (98-107); CREATININE RESULT 1.18 mg/dL (0.52-1.25); GLUCOSE 163 mg/dL (75-110); MAGNESIUM 2.1 mg/dL (1.6-2.3); POTASSIUM 4.3 mmol/L (3.6-5.0); SODIUM 136.4 mmol/L (137-145)
[2017-01-17] MEDS: METOLAZONE 2.5 MG TABLET PO SCH (16:51)
[2017-01-17] MEDS: DOCUSATE SODIUM 100 MG CAPSULE PO SCH ×2 (16:51→17:20)
[2017-01-17] MEDS: OMEGA-3 ACID ETHYL ESTERS 1 GM CAPSULE PO SCH ×2 (16:52→17:20)
[2017-01-17] MEDS: CARVEDILOL 12.5 MG TABLET PO SCH ×2 (16:52→22:05)
[2017-01-17] MEDS: ALLOPURINOL 100 MG TABLET PO SCH (16:53)
[2017-01-17] MEDS: POTASSIUM CHLORIDE 10 MEQ TABLET.SA PO SCH ×2 (16:53→17:20)
[2017-01-17] MEDS: ASPIRIN 81 MG TABLET, ENT COATED PO SCH (16:53)
[2017-01-17] MEDS: MAGNESIUM OXIDE 400 MG TABLET PO SCH ×2 (16:54→17:20)
[2017-01-17] MEDS: FAMOTIDINE 20 MG TABLET PO SCH (16:54)
[2017-01-17] MEDS: DILTIAZEM HCL 240 MG CAPSULE.CR PO SCH ×2 (16:54→22:05)
[2017-01-17 16:55] LABS: BLOOD UREA NITROGEN 35 mg/dL (7-20)
[2017-01-17] MEDS: PAROXETINE HCL 20 MG TABLET PO SCH (16:55)
[2017-01-17] MEDS: POLYETHYLENE GLYCOL 3350 POWDER 17 GM/1 PACKET PO SCH (16:58)
--- NOTE | 2017-01-17 17:11 | PDOC PROGRESS REPORT ---
Subjective Progress Note for:: 01/17/17 Subjective:: I saw the patient during dialysis this noon time at around 1 PM. This is her first hemodialysis/ultrafiltration treatment. She denies any chest pains no shortness of breath. That trialysis catheter placement and her right femoral vein was uneventful done by Dr. Warner. She tolerated hemodialysis until almost the end of treatment when she complained of some humming sound in her ears. There was also a note of more frequent PVCs at the end of the treatment. However she remains to be hemodynamically stable with good blood pressures and oxygen saturations. I am seeing her again after dialysis. She again complains of that humming sound. However she continues to deny any chest pains, shortness of breath, no palpitations. She does feel tired and weak after dialysis. There is not much PVCs on the monitor currently. We will continue to monitor for. Physical Exam Vital Signs: Temp Pulse Resp BP Pulse Ox 97.6 F 83 19 145/53 H 95 01/17/17 08:09 01/17/17 14:00 01/17/17 08:09 01/17/17 08:09 01/17/17 09:04 Intake & Output 01/16/17 01/17/17 01/18/17 06:59 06:59 06:59 Intake Total 1875 1600 510 Output Total 1700 2875 2800 Balance 175 -1275 -2290 Weight 72 kg 72.1 kg Vital signs during dialysis when I saw her: Blood pressure of 153/66, heart rate of 60, blood flow rate of 250 mL/min, dialysate flow rate of 500 mL/min. Exam: General appearance: PRESENT: no acute distress, cooperative, well-developed, well-nourished, seems to be comfortable and tolerating dialysis. Head exam: PRESENT: atraumatic, normocephalic Eye exam: PRESENT: conjunctiva pale, PERRLA. ABSENT: scleral icterus Neck exam: ABSENT: JVD Respiratory exam: PRESENT: Diminished breath sounds. Unchanged bilateral mid to lower lung base crackles ABSENT: rhonchi, unlabored, wheezes Cardiovascular exam: PRESENT: Regular rate rhythm -+S1, +S2. Grade 2/6 systolic ejection murmur ABSENT: diastolic murmur GI/Abdominal exam: PRESENT: normal bowel sounds, soft. ABSENT: guarding, mass, tenderness Extremities exam: Grade 1 bilateral lower extremity edema Neurological exam: PRESENT: alert, awake, oriented to person, place and time. Skin exam: PRESENT: dry, warm, Results Laboratory Results: 01/14/17 06:15 01/17/17 06:05 Sodium 134.2 L Potassium 3.7 Chloride 89 L Carbon Dioxide 35 H Anion Gap 10 BUN 71 H Creatinine 1.79 H Est GFR ( Amer) 33 L Est GFR (Non-Af Amer) 27 L Glucose 176 H Calcium 10.7 H 01/08/17 01/08/17 01/08/17 17:55 17:55 23:59 Creatine Kinase < 20 L < 20 L CK-MB (CK-2) 0.64 Troponin I 0.028 01/08/17 01/09/17 01/09/17 23:59 06:42 06:42 Creatine Kinase < 20 L CK-MB (CK-2) 0.55 0.56 Troponin I 0.058 0.137 Impressions: Chest X-Ray 01/12/17 11:00 IMPRESSION: CARDIAC ENLARGEMENT. VASCULAR CONGESTION. INCREASING PLEURAL EFFUSIONS WITH BASILAR ATELECTASIS/INFILTRATE. Assessment & Plan - Diagnosis (1) Acute on chronic congestive heart failure Qualifiers: Congestive heart failure type: combined Qualified Code(s): I50.43 - Acute on chronic combined systolic (congestive) and diastolic (congestive) heart failure Is this a current diagnosis for this admission?: YesPlan: Patient underwent the first hemodialysis and ultrafiltration today. We are able to obtain ultrafiltration of 2.8 l. However patient did have some PVCs both treatment. So we will observe her closely at this point. Recheck her electrolytes 2-3 hours after hemodialysis. We will correct any electrolyte imbalances if there is any. We will monitor the patient's labs over the weekend. We will plan on doing another ultrafiltration with or without regular hemodialysis on Friday. (2) Pulmonary edema Qualifiers: Chronicity: acute Qualified Code(s): J81.0 - Acute pulmonary edema Is this a current diagnosis for this admission?: YesPlan: This will improve with ultrafiltration as well as diuresis. Continue current diuretics over the weekend. (3) Chronic kidney disease, stage IV (severe) Is this a current diagnosis for this admission?: YesPlan: Kidney function is actually currently stable. We may need to only do ultrafiltration on Friday depending on the patient's kidney function. (4) Acute on chronic respiratory failure with hypoxemia Is this a current diagnosis for this admission?: YesPlan: Due to acute on chronic congestive heart failure. (5) Anemia of chronic disease Is this a current diagnosis for this admission?: YesPlan: We will start the patient on Procrit during hemodialysis. (6) Valvular heart disease Is this a current diagnosis for this admission?: YesPlan: Patient with severe mitral regurgitation and aortic stenosis. (7) Diabetes mellitus type 2 Is this a current diagnosis for this admission?: Yes (8) Essential hypertension Is this a current diagnosis for this admission?: Yes - Time Time with patient: Greater than 35 minutes
--- NOTE | 2017-01-17 20:19 | PROGRESS NOTE E ---
Progress Note NAME: JACINTA LUNSFORD : 1935 AGE: 81Y DATE: 01/17/2017 ROOM: 332 SUBJECTIVE: The patient was seen while she is having dialysis with ultrafiltration going on. The patient seems to be very depressed, but she continues to have orthopnea but denies any shortness of breath at rest. There is no chest pain or discomfort. She is no arrhythmia seen on the monitor. OBJECTIVE: GENERAL: On examination the patient is mildly obese and in no acute distress. VITAL SIGNS: She is afebrile with a temperature of 97.8 degrees Fahrenheit. Respirations are 18 per minute. Pulse is 60 beats per minute. Blood pressure 145/79. HEENT: Head is atraumatic, normocephalic. Eyes: Pupils are equal, round, regular, and reactive to light and accommodation. Extraocular movements are normal. There is no conjunctival pallor. There is no scleral icterus. ENT is negative. NECK: Supple. There is still some mild JVD present. Carotids are equal with bilateral carotid bruits. There is no lymphadenopathy. There is no goiter. Trachea is central. LUNGS: There is some dullness in both the bases with a few crackles. There are occasional rhonchi. There is no wheezing. CARDIOVASCULAR: S1 and S2 is heard. There is no S3 gallop. There is no S4 gallop. There is a murmur of mild aortic stenosis present and also there is significant mitral regurgitation murmur present with the murmur being in the apex with radiation to the left axilla. There is no rub. ABDOMEN: Soft, obese and nontender. There is no hepatosplenomegaly. Bowel sounds are well heard. EXTREMITIES: Femorals are diminished. There are no femoral bruits. There is mild pedal edema. There is no cyanosis or clubbing. There is no DVT or cellulitis. CENTRAL NERVOUS SYSTEM: The patient is conscious, awake, alert and oriented x3 with no focal deficits. PSYCHIATRIC: The patient appears to be depressed but does not appear to be agitated. INTAKE/OUTPUT: The patient's 24 hour intake is 1600 mL; output is 2875 mL. DIAGNOSTIC DATA: Earlier this morning the patient's sodium is 134.2, potassium is 3.7, chloride is 89, CO2 is 35. The patient's BUN is 71, creatinine is 1.79, GFR is 27 and her glucose is 176; calcium is 10.7. IMPRESSION: 1. ACUTE ON CHRONIC CONGESTIVE HEART FAILURE. THIS IS COMBINED SYSTOLIC AND DIASTOLIC HEART FAILURE DUE TO THE VALVULAR DISEASE AND ALSO VOLUME OVERLOAD SECONDARY TO RENAL FAILURE. The patient is at present on temporary dialysis with ultrafiltration to see if the patient's intractable fluid overload can be overcome and the patient becoming euvolemic. At present the patient is undergoing dialysis. 2. ELEVATED TROPONIN I SECONDARY TO CONGESTIVE HEART FAILURE AND ACUTE ON CHRONIC KIDNEY DISEASE. No definite evidence of non-ST elevation myocardial infarction. 3. CHRONIC RESPIRATORY FAILURE WITH HYPOXEMIA. The patient uses BiPAP at night and nasal O2 in the morning. 4. COPD. Improving. 5. CHRONIC KIDNEY DISEASE. At present the patient is on dialysis to hope that we can dilute the overload and make the patient euvolemic and to see if this changes the mitral regurgitation severity. That is, to diagnose whether this is a dynamic mitral regurgitation versus static mitral regurgitation or a combination of both. 6. DUAL CHAMBER PACEMAKER WITH A HISTORY OF COMPLETE HEART BLOCK IN THE PAST WITH SOME VALVULAR DISEASE WITH MILD AORTIC STENOSIS AND SEVERE MITRAL REGURGITATION. As mentioned earlier, the patient is undergoing dialysis to see if the severity of the mitral regurgitation can be reduced if the mitral regurgitation is dynamic. Note, later will check an echo next week while the patient's fluid removal is adequate to see if there is a change in the severity of the patient's mitral regurgitation, in which case or if there still significant mitral regurgitation, then would discuss with [facility] and transfer the patient there to see if she can have a cardiac catheterization to rule out coronary artery disease and see if the mitral valve issue can be addressed percutaneously or surgically. All of this has been discussed with the patient in detail and with other attending physicians on the case and also coordination of care for management has also been done. Note: 35 minutes spent on this patient with more than 50% of the time spent on patient's direct care and also reviewing the patient's medications. This is a highly complex medical decision-making case in view of the patient's renal failure, mitral regurgitation and intractable volume overload. DICTATING PHYSICIAN: KEN GIBSON M.D. [id number] PHY#: [id number] ID: [id number] JOB#: [id number] ACCT: [id number] cc: >
[2017-01-17] MEDS: ANASTROZOLE 1 MG TABLET PO SCH (21:53)
[2017-01-17] MEDS: ATORVASTATIN CALCIUM 20 MG TABLET PO SCH (21:55)
[2017-01-17] MEDS: GABAPENTIN 100 MG CAPSULE PO SCH (21:55)
[2017-01-17] MEDS: ISOSORBIDE MONONITRATE 60 MG TAB.ER.24H PO SCH (23:01)
[2017-01-18] MEDS: FUROSEMIDE INJ/PF 20 MG/2 ML SDV IV SCH ×3 (05:47→21:28)
[2017-01-18] MEDS: ENOXAPARIN SODIUM INJ 30 MG/0.3 ML DISP.SYRIN SUBCUT SCH (08:17)
[2017-01-18] MEDS: PAROXETINE HCL 20 MG TABLET PO SCH (08:42)
[2017-01-18] MEDS: SODIUM CHLORIDE NASAL SPRAY 44 ML NASL SCH ×4 (08:44→21:43)
[2017-01-18] MEDS: INSULIN LISPRO 100 UNIT/ML 3 ML VIAL SUBCUT PRN ×3 (10:06→23:00)
[2017-01-18] MEDS: ASPIRIN 81 MG TABLET, ENT COATED PO SCH (10:07)
[2017-01-18] MEDS: DILTIAZEM HCL 240 MG CAPSULE.CR PO SCH ×2 (10:07→21:28)
[2017-01-18] MEDS: DOCUSATE SODIUM 100 MG CAPSULE PO SCH ×2 (10:07→17:41)
[2017-01-18] MEDS: FAMOTIDINE 20 MG TABLET PO SCH (10:07)
[2017-01-18] MEDS: MAGNESIUM OXIDE 400 MG TABLET PO SCH ×3 (10:08→17:42)
[2017-01-18] MEDS: ALLOPURINOL 100 MG TABLET PO SCH (10:08)
[2017-01-18] MEDS: CARVEDILOL 12.5 MG TABLET PO SCH ×2 (10:08→21:29)
[2017-01-18] MEDS: METOLAZONE 2.5 MG TABLET PO SCH (10:08)
[2017-01-18] MEDS: OMEGA-3 ACID ETHYL ESTERS 1 GM CAPSULE PO SCH ×2 (10:08→17:42)
[2017-01-18] MEDS: POTASSIUM CHLORIDE 10 MEQ TABLET.SA PO SCH ×2 (10:08→17:41)
[2017-01-18] MEDS: POLYETHYLENE GLYCOL 3350 POWDER 17 GM/1 PACKET PO SCH (10:12)
--- NOTE | 2017-01-18 13:38 | PROGRESS NOTE E ---
Progress Note NAME: JACINTA LUNSFORD : 1935 AGE: 81Y DATE: 01/18/2017 ROOM: 332 SUBJECTIVE: Note the patient appears to be depressed. She states her shortness of breath is much improved but still has orthopnea. She denies any chest pain or discomfort. There is still some leg edema. There are no TIA or CVA symptoms. There are no arrhythmias seen on the monitor. OBJECTIVE: GENERAL: On examination the patient is mildly overweight and in no acute distress but appears to be depressed. VITAL SIGNS: She is afebrile with a temperature of 98.3 degrees Fahrenheit. Pulse is 60 beats per minute. Blood pressure is 168/40. Respirations are 16 per minute. O2 sats are 98% on 3 L nasal cannula. HEENT: Head is atraumatic, normocephalic. Eyes: Pupils are equal, round, regular, and reactive to light and accommodation. Extraocular movements are normal. There is no conjunctival pallor. There is no scleral icterus. ENT is negative. NECK: Supple. There is no JVD at present. Carotids are equal with bilateral carotid bruits. There is no lymphadenopathy. There is no goiter. Trachea is central. LUNGS: Show still some dullness in both bases with a few crackles. There are occasional rhonchi. There is no wheezing. CARDIOVASCULAR: S1, S2 is heard. There is no S3 gallop. There is no S4 gallop. There is a systolic murmur of mild aortic stenosis present and significant mitral regurgitation murmur heard. There is no rub. ABDOMEN: Soft, obese, and nontender. There is no hepatosplenomegaly. Bowel sounds are well heard. EXTREMITIES: Femorals are diminished. Leg pulses are diminished. There is no cyanosis or clubbing. There is no DVT or cellulitis. There are no femoral bruits. There is still some mild pedal edema. CENTRAL NERVOUS SYSTEM: The patient is conscious, awake, oriented x3 but slightly drowsy with no focal deficits. PSYCHIATRIC: The patient appears to be depressed. There is no agitation. LABORATORY DATA: The patient's glucose is 155. IMPRESSION: 1. [id number] CONGESTIVE HEART FAILURE. This is secondary to combined systolic and diastolic heart failure due to valvular disease and also volume overload secondary to renal failure. The patient is on renal dialysis with ultrafiltration. Needs a few more treatments prior to *------* the patient's volume overload is improved. 2. ELEVATED TROPONIN I SECONDARY TO CONGESTIVE HEART FAILURE AND [id number] KIDNEY DISEASE. No evidence of non-ST elevation DC. 3. CHRONIC RESPIRATORY FAILURE WITH HYPOXEMIA. The patient uses BiPAP at night and nasal O2 in the morning. 4. COPD. Improving. 5. CHRONIC KIDNEY DISEASE STAGE IV. 6. DUAL CHAMBER PACEMAKER PLACEMENT WITH A HISTORY OF COMPLETE HEART BLOCK IN THE PAST. The pacemaker seems to be functioning well. 7. VALVULAR DISEASE WITH MILD AORTIC STENOSIS AND SEVERE MITRAL REGURGITATION. As mentioned earlier, we will see the effect of the dialysis with ultrafiltration with regards to volume overload. We will recheck limited echo on Friday to see if the mitral regurgitation has improved with the patient being on dialysis. Continue antibiotics. Continue current therapy. 8. We will recheck her limited echo on Friday to see the effect of the volume overload correction being situated with respect to the severe mitral regurgitation. Continue antibiotics. Continue nasal O2. Continue current treatment. We will with you. RECOMMENDATIONS: Continue antidiabetic treatment. Continue current medical therapy. Would continue hemodialysis. We will recheck a limited echo to see the effect on the dialysis on the volume overload. Note, 30 minutes spent on this patient with more than 50% of the time spent on direct patient care and coordinating care with other physicians on the case. We will follow with you. DICTATING PHYSICIAN: KEN GIBSON M.D. [id number] ARMANDO#: [id number] ID: [id number] JOB#: [id number] ACCT: [id number] cc: >
--- NOTE | 2017-01-18 13:50 | PDOC PROGRESS REPORT ---
Subjective Progress Note for:: 01/18/17 Subjective:: reason for visit: f/u heart failure, CKD, hypoxia hospital course: per other's notes - "JACINTA LUNSFORD is an 81 year old female with multiple medical problems including diastolic congestive heart failure, chronic kidney disease, COPD, mitral regurgitation, and obesity. She has had numerous hospitalizations over the past 5 years. Medication management has been difficult because of her cardiorenal syndrome. She is followed by Dr. Jewell for cardiology and Dr. De Luna for nephrology. She presented 01/08/2017 with increased work of breathing. The chest x-ray showed vascular congestion. While getting up to the commode in the emergency department she had an oxygen desaturation into the 80s, and then into the 60s. She received a dose of Lasix and began diuresing. She had a nebulizer treatment and this also seemed to help. She denied chest pain. When I saw her in the emergency department she was wearing BiPAP. She confirmed a DO NOT INTUBATE status. The patient was admitted to the intermediate ICU for further evaluation and treatment. She diuresed well on IV Lasix. Rx changed to PO 01/11. Total fluid balance this admission is -4.6L. She remains on BiPAP prn but is now tolerating nasal O2 for some time. She is breathing more easily but this is variable. At times she is very SOB. Cardiology is following and await Nephro consultation. May need to reconsult Dr. De Luna in the AM." I inherited her care Friday and she was still c/o SOA with minimal exertion, still fatigues longterm through the day and requires further BiPAP tx; overall feels better but clearly not back to baseline. Her severe mitral regurg is complicating her volume status, competing with her failing renal function to create a perfect storm. ideally she would undergo MV replacement but would require heart cath with dye prior to the procedure likely resulting in need for hemodialysis. so after d/w dr de luna she has elected for ultrafiltration and dr salazar placed femoral catheter Friday morning for first dialysis later that day. she tolerated as could be expected with humming in her ears that regressed, frequent ectopy with multiple PVCs that resolved and generalized weakness and "washed out" feeling. her breathing is better, she has not required BIPAP since the dialysis. ROS: as above, denies chest pain, fevers/chills, emesis, diarrhea, total 10 systems reviewed remaining systems negative Physical Exam Vital Signs: Temp Pulse Resp BP Pulse Ox 98.3 F 33 L 16 168/40 H 98 01/18/17 08:12 01/18/17 08:12 01/18/17 08:12 01/18/17 08:12 01/18/17 08:12 Intake & Output 01/17/17 01/18/17 01/19/17 06:59 06:59 06:59 Intake Total 1600 1080 Output Total 2875 9611 Balance -1272 -9933 Weight 72.1 kg 71.1 kg General appearance: PRESENT: no acute distress, well-developed, well-nourished Head exam: PRESENT: atraumatic, normocephalic Eye exam: ABSENT: conjunctival injection, scleral icterus Mouth exam: PRESENT: dry mucosa, neck supple Neck exam: PRESENT: full ROM. ABSENT: tracheal deviation Respiratory exam: PRESENT: rales - some improved on the right. ABSENT: accessory muscle use, unlabored, wheezes Cardiovascular exam: PRESENT: RRR, systolic murmur Pulses: PRESENT: normal radial pulses, normal dorsalis pedis pul, other - Rt femoral line in place GI/Abdominal exam: PRESENT: normal bowel sounds, soft, tenderness - LLQ tender that she says is chronic Extremities exam: PRESENT: pedal edema. ABSENT: calf tenderness Neurological exam: PRESENT: alert, awake, oriented to person, oriented to place , oriented to time, oriented to situation Psychiatric exam: PRESENT: appropriate affect, normal mood Skin exam: PRESENT: dry, warm Results Laboratory Results: 01/14/17 06:15 01/17/17 16:10 01/17/17 16:10 Sodium 136.4 L Potassium 4.3 Chloride 95 L Carbon Dioxide 29 Anion Gap 12 BUN 35 H D Creatinine 1.18 Est GFR ( Amer) 53 L Est GFR (Non-Af Amer) 44 L Glucose 163 H Calcium 10.0 Magnesium 2.1 01/08/17 01/08/17 01/08/17 17:55 17:55 23:59 Creatine Kinase < 20 L < 20 L CK-MB (CK-2) 0.64 Troponin I 0.028 01/08/17 01/09/17 01/09/17 23:59 06:42 06:42 Creatine Kinase < 20 L CK-MB (CK-2) 0.55 0.56 Troponin I 0.058 0.137 Impressions: Chest X-Ray 01/12/17 11:00 IMPRESSION: CARDIAC ENLARGEMENT. VASCULAR CONGESTION. INCREASING PLEURAL EFFUSIONS WITH BASILAR ATELECTASIS/INFILTRATE. Assessment & Plan - Diagnosis (1) Acute on chronic respiratory failure with hypoxemia Is this a current diagnosis for this admission?: Yes (2) COPD (chronic obstructive pulmonary disease) Qualifiers: COPD type: emphysema Emphysema type: unspecified Qualified Code(s) : J43.9 - Emphysema, unspecified Is this a current diagnosis for this admission?: Yes (3) Chronic kidney disease, stage IV (severe) Is this a current diagnosis for this admission?: Yes (4) Mitral regurgitation Qualifiers: Cardiac valve disease etiology: nonrheumatic Qualified Code(s): I34.0 - Nonrheumatic mitral (valve) insufficiency Is this a current diagnosis for this admission?: Yes (5) Acute on chronic diastolic (congestive) heart failure Is this a current diagnosis for this admission?: Yes (6) Cardiorenal syndrome with renal failure Is this a current diagnosis for this admission?: Yes - Time Time Spent with patient: 15-24 minutes - Plan Summary Plan Summary: further ultrafiltration per dr de luna, otherwise continue current care
[2017-01-18] MEDS: HYDROCODONE/ACETAMINOPHEN 10-325 MG TABLET PO PRN ×2 (14:21→21:42)
[2017-01-18 19:37] LABS: HEPATITIS C QUANTITATION HCV Not Detected IU/mL (.)
[2017-01-18] MEDS: ISOSORBIDE MONONITRATE 60 MG TAB.ER.24H PO SCH (21:28)
[2017-01-18] MEDS: GABAPENTIN 100 MG CAPSULE PO SCH (21:29)
[2017-01-18] MEDS: ATORVASTATIN CALCIUM 20 MG TABLET PO SCH (21:31)
[2017-01-18] MEDS: ANASTROZOLE 1 MG TABLET PO SCH (21:38)
[2017-01-19 05:44] LABS: HEMATOCRIT 31.2 % (36.0-47.0); HEMOGLOBIN 10.1 g/dL (12.0-15.5); HGB HCT DIFFERENCE -0.9; MEAN CORPUSCULAR HEMOGLOBIN 29.9 pg (27.0-33.4); MEAN CORPUSCULAR HGB CONC 32.4 g/dL (32.0-36.0); MEAN CORPUSCULAR VOLUME 93 fl (80-97); RED BLOOD COUNT 3.38 10^6/uL (3.72-5.28); RED CELL DISTRIBUTION WIDTH 16.6 % (11.5-14.0); WHITE BLOOD COUNT 5.3 10^3/uL (4.0-10.5)
[2017-01-19 05:58] LABS: ANION GAP 12 (5-19); BLOOD UREA NITROGEN 44 mg/dL (7-20); CARBON DIOXIDE 32 mmol/L (22-30); CHLORIDE 94 mmol/L (98-107); CREATININE RESULT 1.53 mg/dL (0.52-1.25); GLUCOSE 169 mg/dL (75-110); POTASSIUM 4.4 mmol/L (3.6-5.0); SODIUM 137.8 mmol/L (137-145)
[2017-01-19 06:38] LABS: BAND NEUTROPHILS % (MANUAL) 1 % (3-5); BASOPHILS % (MANUAL) 0 % (0-2); EOSINOPHILS % (MANUAL) 2 % (0-6); LYMPHOCYTES % (MANUAL) 17 % (13-45); TOTAL CELLS COUNTED 100
[2017-01-19 06:42] LABS: ANISOCYTOSIS 1+; POIKILOCYTOSIS SLIGHT; POLYCHROMASIA 1+
[2017-01-19 06:43] LABS: OVALOCYTES 1+
[2017-01-19] MEDS: FUROSEMIDE INJ/PF 20 MG/2 ML SDV IV SCH ×3 (06:47→21:52)
[2017-01-19] MEDS: SODIUM CHLORIDE NASAL SPRAY 44 ML NASL SCH ×4 (08:13→22:04)
[2017-01-19] MEDS: PAROXETINE HCL 20 MG TABLET PO SCH (08:13)
[2017-01-19] MEDS: ENOXAPARIN SODIUM INJ 30 MG/0.3 ML DISP.SYRIN SUBCUT SCH (08:14)
[2017-01-19] MEDS: HYDROCODONE/ACETAMINOPHEN 10-325 MG TABLET PO PRN ×3 (08:21→22:12)
[2017-01-19] MEDS: POTASSIUM CHLORIDE 10 MEQ TABLET.SA PO SCH ×2 (09:23→17:26)
[2017-01-19] MEDS: FAMOTIDINE 20 MG TABLET PO SCH (09:23)
[2017-01-19] MEDS: OMEGA-3 ACID ETHYL ESTERS 1 GM CAPSULE PO SCH ×2 (09:24→17:26)
[2017-01-19] MEDS: ASPIRIN 81 MG TABLET, ENT COATED PO SCH (09:24)
[2017-01-19] MEDS: DILTIAZEM HCL 240 MG CAPSULE.CR PO SCH ×2 (09:24→21:51)
[2017-01-19] MEDS: DOCUSATE SODIUM 100 MG CAPSULE PO SCH ×2 (09:24→17:27)
[2017-01-19] MEDS: METOLAZONE 2.5 MG TABLET PO SCH (09:25)
[2017-01-19] MEDS: ALLOPURINOL 100 MG TABLET PO SCH (09:25)
[2017-01-19] MEDS: CARVEDILOL 12.5 MG TABLET PO SCH ×2 (09:25→21:51)
[2017-01-19] MEDS: MAGNESIUM OXIDE 400 MG TABLET PO SCH ×3 (09:25→17:26)
[2017-01-19] MEDS: POLYETHYLENE GLYCOL 3350 POWDER 17 GM/1 PACKET PO SCH (09:26)
--- NOTE | 2017-01-19 09:56 | RADIOLOGY REPORT (SQ) ---
EXAM DESCRIPTION: CHEST SINGLE VIEW COMPLETED DATE/TIME: 01/19/2017 9:41 am REASON FOR STUDY: Pleural Effusions /CHF COMPARISON: Chest films 12/02/2016, 12/18/2016, 01/08/2017, 01/12/2017 EXAM PARAMETERS: NUMBER OF VIEWS: One view. TECHNIQUE: Single frontal radiographic view of the chest acquired. RADIATION DOSE: NA LIMITATIONS: None. FINDINGS: LUNGS AND PLEURA: Stable trace right pleural fluid in the lateral costophrenic sulcus. Mi nimal stable right basilar airspace disease. Stable left retrocardiac consolidation atelectasis versus pneumonia. Trace left pleural effusion cou ld not be excluded. No pneumothorax. MEDIASTINUM AND HILAR STRUCTURES: No masses. Contour normal. HEART AND VASCULAR STRUCTURES: Stable cardiomegaly BONES: No acute findings. HARDWARE: Small clips post right lobe thyroidectomy. Left-sided dual lead pacemaker OTHER: No other significant finding. IMPRESSION: Stable appearance of the chest TECHNICAL DOCUMENTATION: JOB ID: [id number]
--- NOTE | 2017-01-19 11:52 | PDOC PROGRESS REPORT ---
Subjective Progress Note for:: 01/19/17 Subjective:: reason for visit: f/u heart failure, CKD, hypoxia hospital course: per other's notes - "JACINTA LUNSFORD is an 81 year old female with multiple medical problems including diastolic congestive heart failure, chronic kidney disease, COPD, mitral regurgitation, and obesity. She has had numerous hospitalizations over the past 5 years. Medication management has been difficult because of her cardiorenal syndrome. She is followed by Dr. Jewell for cardiology and Dr. De Luna for nephrology. She presented 01/08/2017 with increased work of breathing. The chest x-ray showed vascular congestion. While getting up to the commode in the emergency department she had an oxygen desaturation into the 80s, and then into the 60s. She received a dose of Lasix and began diuresing. She had a nebulizer treatment and this also seemed to help. She denied chest pain. When I saw her in the emergency department she was wearing BiPAP. She confirmed a DO NOT INTUBATE status. The patient was admitted to the intermediate ICU for further evaluation and treatment. She diuresed well on IV Lasix. Rx changed to PO 01/11. Total fluid balance this admission is -4.6L. She remains on BiPAP prn but is now tolerating nasal O2 for some time. She is breathing more easily but this is variable. At times she is very SOB. Cardiology is following and await Nephro consultation. May need to reconsult Dr. De Luna in the AM." I inherited her care Friday and she was still c/o SOA with minimal exertion, still fatigues group home through the day and requires further BiPAP tx; overall feels better but clearly not back to baseline. Her severe mitral regurg is complicating her volume status, competing with her failing renal function to create a perfect storm. ideally she would undergo MV replacement but would require heart cath with dye prior to the procedure likely resulting in need for hemodialysis. so after d/w dr de luna she has elected for ultrafiltration and dr salazar placed femoral catheter Friday morning for first dialysis later that day. she tolerated as could be expected with humming in her ears that regressed, frequent ectopy with multiple PVCs that resolved and generalized weakness and "washed out" feeling. her breathing is better, she has used BIPAP less since the dialysis, seems to rest better at night with it in place. ROS: as above, denies chest pain, fevers/chills, emesis, diarrhea, total 10 systems reviewed remaining systems negative Physical Exam Vital Signs: Temp Pulse Resp BP Pulse Ox 98.2 F 60 16 167/52 H 98 01/19/17 08:09 01/19/17 08:09 01/19/17 08:09 01/19/17 08:09 01/19/17 08:09 Intake & Output 01/18/17 01/19/17 01/20/17 06:59 06:59 06:59 Intake Total 1080 679 Output Total 4875 1475 Balance -5329 -796 Weight 71.1 kg 67.1 kg General appearance: PRESENT: no acute distress, well-developed, well-nourished Head exam: PRESENT: atraumatic, normocephalic Eye exam: ABSENT: conjunctival injection, scleral icterus Mouth exam: PRESENT: moist, neck supple Neck exam: PRESENT: full ROM. ABSENT: tracheal deviation Respiratory exam: PRESENT: rales - as before. ABSENT: accessory muscle use, unlabored Cardiovascular exam: PRESENT: RRR, systolic murmur Pulses: PRESENT: normal radial pulses, normal dorsalis pedis pul Vascular exam: PRESENT: other - Rt femoral vasc line in place GI/Abdominal exam: PRESENT: normal bowel sounds, soft. ABSENT: guarding Gentrourinary exam: PRESENT: indwelling catheter Extremities exam: PRESENT: pedal edema. ABSENT: calf tenderness Musculoskeletal exam: PRESENT: full ROM - weak, 4/5 at best Neurological exam: PRESENT: alert, awake, oriented to person, oriented to place , oriented to time, oriented to situation Psychiatric exam: PRESENT: appropriate affect, normal mood Skin exam: PRESENT: dry, warm Results Laboratory Results: 01/19/17 04:50 01/19/17 04:50 01/19/17 01/19/17 04:50 04:50 WBC 5.3 RBC 3.38 L Hgb 10.1 L Hct 31.2 L MCV 93 MCH 29.9 MCHC 32.4 RDW 16.6 H Plt Count 230 Seg Neutrophils % Not Reportable Lymphocytes % Not Reportable Monocytes % Not Reportable Eosinophils % Not Reportable Basophils % Not Reportable Absolute Neutrophils Not Reportable Absolute Lymphocytes Not Reportable Absolute Monocytes Not Reportable Absolute Eosinophils Not Reportable Absolute Basophils Not Reportable Sodium 137.8 Potassium 4.4 Chloride 94 L Carbon Dioxide 32 H Anion Gap 12 BUN 44 H Creatinine 1.53 H Est GFR ( Amer) 39 L Est GFR (Non-Af Amer) 33 L Glucose 169 H Calcium 11.0 H 01/08/17 01/08/17 01/08/17 17:55 17:55 23:59 Creatine Kinase < 20 L < 20 L CK-MB (CK-2) 0.64 Troponin I 0.028 01/08/17 01/09/17 01/09/17 23:59 06:42 06:42 Creatine Kinase < 20 L CK-MB (CK-2) 0.55 0.56 Troponin I 0.058 0.137 Impressions: Chest X-Ray 01/19/17 00:00 IMPRESSION: Stable appearance of the chest Status: Imported from PACS Assessment & Plan - Diagnosis (1) Acute on chronic respiratory failure with hypoxemia Is this a current diagnosis for this admission?: Yes (2) COPD (chronic obstructive pulmonary disease) Qualifiers: COPD type: emphysema Emphysema type: unspecified Qualified Code(s) : J43.9 - Emphysema, unspecified Is this a current diagnosis for this admission?: Yes (3) Chronic kidney disease, stage IV (severe) Is this a current diagnosis for this admission?: Yes (4) Mitral regurgitation Qualifiers: Cardiac valve disease etiology: nonrheumatic Qualified Code(s): I34.0 - Nonrheumatic mitral (valve) insufficiency Is this a current diagnosis for this admission?: Yes (5) Acute on chronic diastolic (congestive) heart failure Is this a current diagnosis for this admission?: Yes (6) Cardiorenal syndrome with renal failure Is this a current diagnosis for this admission?: Yes - Time Time Spent with patient: 15-24 minutes - Plan Summary Plan Summary: further ultrafiltration/hemodialysis per dr de luna, plan for more permanent cath Friday, otherwise continue current care
[2017-01-19] MEDS: INSULIN LISPRO 100 UNIT/ML 3 ML VIAL SUBCUT PRN ×3 (12:51→22:30)
[2017-01-19] MEDS: SIMETHICONE 80 MG TAB.CHEW PO PRN (13:57)
--- NOTE | 2017-01-19 15:59 | PROGRESS NOTE E ---
SUBJECTIVE: Note: This patient appears to be depressed. She states that her shortness of breath is much better but still has orthopnea. Her leg edema also is much improved. There are no palpitations. There is no chest pain or discomfort. There are no TIA or CVA symptoms. OBJECTIVE: GENERAL: On examination the patient is mildly overweight. VITAL SIGNS: She is afebrile with a temperature of 98.2 degrees Fahrenheit. Pulse is 60 beats per minute. Blood pressure is 169/52. Respirations are 16 per minute. O2 sats are 98% on 3 L. HEENT: Head is atraumatic, normocephalic. Eyes: Pupils are equal, round, regular, and reactive to light and accommodation. Extraocular movements are normal. There is no conjunctival pallor. There is no scleral icterus. ENT is negative. NECK: Supple. There is no JVD at present. Carotids are equal with bilateral carotid bruits. There is no lymphadenopathy. There is no goiter. Trachea is central. LUNGS: Show some dullness in left base with a few crackles and bronchial breath sounds. There is no rhonchi or wheezing. There are no rales of CHF today. CARDIOVASCULAR: S1, S2 is heard. There is no S3 gallop. There is no S4 gallop. There is a systolic murmur of mild aortic stenosis present and significant mitral regurgitation murmur present. ABDOMEN: Soft, obese, and nontender. There is no hepatosplenomegaly. Bowel sounds are well heard. EXTREMITIES: Femorals are diminished. Leg pulses are diminished. There is right temporary dialysis catheter which is oozing around the site for which the patient complains. There is no cyanosis or clubbing. There is no DVT or cellulitis. There are no femoral bruits. There is trace pedal edema. CENTRAL NERVOUS SYSTEM: The patient is conscious, awake, oriented x3 but slightly drowsy with no focal deficits. PSYCHIATRIC: The patient appears to be depressed but there is no agitation. LABORATORY DATA: The patient's weight yesterday was 67.1 kg compared to 71.1 kg on 01/17/17. Her 24-hr intake as charted is 679 mL, output is 1475 mL. 2800 mL were removed from her yesterday by dialysis. The patient's chest x-ray shows trace pleural fluid in the lateral costophrenic sulcus with stable right basilar airspace disease, stable left retrocardiac consolidation atelectasis versus pneumonia, trace left pleural effusion could not be excluded. There is stable cardiomyopathy without any evidence for congestive heart failure. The patient's white count is 5300, hemoglobin is 10.1, hematocrit is 31.2, and platelet count is 230,000. The patient's sodium is 137.8, potassium 4.4, chloride 94, CO2 is 32, the patient's BUN is 44, creatinine is 1.53, GFR is improved to 33 mL which is chronic kidney disease stage 3 compared to stage 4 earlier on. The patient's glucose is 169. Her calcium is elevated at 11. The patient's hepatitis B antigen was negative, hepatitis B antibody is less than 3.1, hepatitis B core total antibody is negative. HCV quantification is not detected. Note that the HCV RNA (PCR) logged in was not completed. IMPRESSION: 1. [id number] CONGESTIVE HEART FAILURE. This is secondary to combined systolic and diastolic heart failure due to valvular disease and also volume overload secondary to renal failure causing systolic heart failure and also the patient has LV diastolic dysfunction. The patient yesterday had renal dialysis with ultrafiltration with 2800 mL of fluid removed and she feels better. 2. ELEVATED TROPONIN I SECONDARY TO CONGESTIVE HEART FAILURE AND [id number] KIDNEY DISEASE. No evidence of non-ST elevation UT. 3. CHRONIC RESPIRATORY FAILURE WITH HYPOXEMIA. The patient uses BiPAP at night and nasal O2 in the morning. 4. COPD. Improving. 5. PNEUMONIA. Note that the patient is on antibiotics. 6. CHRONIC KIDNEY DISEASE AT PRESENT STAGE IV WHICH IS IMPROVED FROM STAGE 4. 7. DUAL CHAMBER PACEMAKER PLACEMENT WITH A HISTORY OF COMPLETE HEART BLOCK IN THE PAST. 8. VALVULAR DISEASE WITH MILD AORTIC STENOSIS AND SEVERE MITRAL REGURGITATION. Will have the patient have another dialysis tomorrow and subsequent to that will repeat a limited echo to look for mitral regurgitation severity. 9. DEPRESSION. 10. HYPERTENSION. Blood pressure is still not well controlled. Will add clonidine to the patient's blood pressure medications. 11. 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 RECOMMENDATIONS: Continue aspirin 81 mg p.o. daily. Continue atorvastatin 20 mg p.o. at bedtime. Continue Coreg 25 mg q.12 h. Continue diltiazem at 240 mg p.o. q.12 h. Continue Lasix 30 mg IV q.8 h. Continue isosorbide mononitrate 120 mg p.o. at bedtime. Continue metolazone 2.5 mg p.o. daily and continue her Paxil at 20 mg p.o. every morning and continue her other current medications. Note that the patient is on DVT prophylaxis with Lovenox at 30 mg subcutaneously every morning. She is also on *------* and will continue the patient on before meals t.i.d. and at bedtime with sliding scale insulin coverage. Will follow with you. Note, 30 minutes spent on this patient with more than 50% of the time spent on direct patient care and also reviewing the patient's medications and also coordination of care with the other caregiving providers on the case. Also discussed with patient and patient's son. This is a case where there is high complex medical decision making in view of the patient's comorbidities. We will follow with you. DICTATING PHYSICIAN: KEN GIBSON M.D. [id number] DT: 0000 TOYY#: [id number] ID: [id number] JOB#: [id number] ACCT: [id number] cc: >
[2017-01-19] MEDS: ATORVASTATIN CALCIUM 20 MG TABLET PO SCH (21:51)
[2017-01-19] MEDS: ISOSORBIDE MONONITRATE 60 MG TAB.ER.24H PO SCH (21:51)
[2017-01-19] MEDS: CLONIDINE HCL 0.1 MG TABLET PO SCH (21:51)
[2017-01-19] MEDS: GABAPENTIN 100 MG CAPSULE PO SCH (21:52)
[2017-01-19] MEDS: ANASTROZOLE 1 MG TABLET PO SCH (21:56)
[2017-01-20] MEDS: FUROSEMIDE INJ/PF 20 MG/2 ML SDV IV SCH ×3 (05:46→21:54)
[2017-01-20 07:20] LABS: HEMATOCRIT 29.4 % (36.0-47.0); HEMOGLOBIN 9.5 g/dL (12.0-15.5); HGB HCT DIFFERENCE -0.9; MEAN CORPUSCULAR HEMOGLOBIN 29.7 pg (27.0-33.4); MEAN CORPUSCULAR HGB CONC 32.2 g/dL (32.0-36.0); MEAN CORPUSCULAR VOLUME 92 fl (80-97); RED BLOOD COUNT 3.19 10^6/uL (3.72-5.28); RED CELL DISTRIBUTION WIDTH 17.1 % (11.5-14.0); WHITE BLOOD COUNT 5.1 10^3/uL (4.0-10.5)
[2017-01-20 07:45] LABS: ANION GAP 10 (5-19); BLOOD UREA NITROGEN 51 mg/dL (7-20); CARBON DIOXIDE 31 mmol/L (22-30); CHLORIDE 94 mmol/L (98-107); CREATININE RESULT 1.47 mg/dL (0.52-1.25); GLUCOSE 225 mg/dL (75-110); MAGNESIUM 2.1 mg/dL (1.6-2.3); PHOSPHORUS 3.9 mg/dL (2.5-4.5); POTASSIUM 4.1 mmol/L (3.6-5.0); SODIUM 134.9 mmol/L (137-145)
[2017-01-20] MEDS ORDERED: BACITRACIN INJ 50,000 UNIT VIAL IR PRN (08:01)
[2017-01-20] MEDS ORDERED: FENTANYL CITRATE INJ/PF 100 MCG/2 ML AMPUL ONE (08:03)
[2017-01-20] MEDS ORDERED: MIDAZOLAM 2 MG/2 ML INJ ONE (08:03)
[2017-01-20] MEDS ORDERED: HEPARIN SODIUM,PORCINE/NS/PF 0 UNIT/0 ML RTUINJ IV ONE (08:03)
[2017-01-20] MEDS ORDERED: LIDOCAINE 0.5% INJ-PF (5 MG/ML) 50 ML SDV ONE (08:03)
[2017-01-20] MEDS: ENOXAPARIN SODIUM INJ 30 MG/0.3 ML DISP.SYRIN SUBCUT SCH (09:00)
[2017-01-20] MEDS ORDERED: HEPARIN SOD (PORCINE) 1,000 UNIT/ML 10 ML VIAL IV PRN (09:54)
[2017-01-20] MEDS ORDERED: EPOETIN ALFA 10,000 UNIT in SYRINGE, DISPOSABLE, 1 EACH IV PRN (10:30)
[2017-01-20] MEDS: INSULIN LISPRO 100 UNIT/ML 3 ML VIAL SUBCUT PRN ×2 (13:23→22:22)
[2017-01-20] MEDS: POTASSIUM CHLORIDE 10 MEQ TABLET.SA PO SCH ×2 (13:26→17:33)
[2017-01-20] MEDS: FAMOTIDINE 20 MG TABLET PO SCH (13:26)
[2017-01-20] MEDS: CLONIDINE HCL 0.1 MG TABLET PO SCH ×2 (13:27→21:54)
[2017-01-20] MEDS: DILTIAZEM HCL 240 MG CAPSULE.CR PO SCH ×2 (13:27→21:54)
[2017-01-20] MEDS: DOCUSATE SODIUM 100 MG CAPSULE PO SCH ×2 (13:27→17:34)
[2017-01-20] MEDS: OMEGA-3 ACID ETHYL ESTERS 1 GM CAPSULE PO SCH ×2 (13:27→17:33)
[2017-01-20] MEDS: CARVEDILOL 12.5 MG TABLET PO SCH ×2 (13:28→21:54)
[2017-01-20] MEDS: ALLOPURINOL 100 MG TABLET PO SCH (13:28)
[2017-01-20] MEDS: PAROXETINE HCL 20 MG TABLET PO SCH (13:28)
[2017-01-20] MEDS: MAGNESIUM OXIDE 400 MG TABLET PO SCH ×3 (13:28→17:33)
[2017-01-20] MEDS: ASPIRIN 81 MG TABLET, ENT COATED PO SCH (13:28)
[2017-01-20] MEDS: HYDROCODONE/ACETAMINOPHEN 10-325 MG TABLET PO PRN ×2 (13:29→20:29)
[2017-01-20] MEDS: METOLAZONE 2.5 MG TABLET PO SCH (13:29)
[2017-01-20] MEDS: POLYETHYLENE GLYCOL 3350 POWDER 17 GM/1 PACKET PO SCH (13:30)
[2017-01-20] MEDS: SODIUM CHLORIDE NASAL SPRAY 44 ML NASL SCH ×3 (13:30→22:00)
--- NOTE | 2017-01-20 13:53 | PROGRESS NOTE E ---
Progress Note NAME: JACINTA LUNSFORD : 1935 AGE: 81Y DATE: 01/20/2017 ROOM: 332 SUBJECTIVE: The patient appears to be still depressed. She denied any shortness of breath at rest, but still complains of orthopnea. There is no chest pain or discomfort. The patient is seen while she is being on dialysis. The patient states she is going to get a permanent dialysis catheter. There are no palpitations. There are no TIA or CVA symptoms. There are no anginal symptoms. There is no PND. There is only trace leg edema. OBJECTIVE: GENERAL: The patient is slightly overweight, in no acute distress. She is well groomed, but appears to be severely depressed. VITAL SIGNS: She is afebrile with a temperature of 98 degrees Fahrenheit, her pulse is 60 beats per minute, blood pressure is 122/73, respirations are 18 per minute, O2 saturations are 98% on 2 L nasal cannula. HEAD: Normocephalic, atraumatic. EYES: Pupils are equal, round, regular, reactive to light and accommodation. Extraocular movements are normal. There is no conjunctival pallor. There is no scleral icterus. ENT: Negative. NECK: Supple. There is no JVD at present. Carotids are equal with bilateral carotid bruits. There is no lymphadenopathy. There is no goiter. Trachea is central. LUNGS: Some dullness in the left base with a few crackles and also a few crackles in the right base. There are bronchial breath sounds in the left base. There is no rhonchi or wheezing. There are no rales or CHF. CARDIOVASCULAR SYSTEM: S1 and S2 are heard. There is no S3 gallop. There is no S4 gallop. There is a systolic murmur and aortic stenosis present and also significant mitral regurgitation present. There is no rub. ABDOMEN: Soft, obese, nontender. There is no hepatosplenomegaly. Bowel sounds are well heard. EXTREMITIES: Femorals are diminished. Leg pulses are diminished. There is right temporary dialysis catheter. At present, there is no oozing around the site. There is no cyanosis or clubbing. There is trace pedal edema. There are no femoral bruits. There is no DVT or cellulitis. CENTRAL NERVOUS SYSTEM: The patient is conscious, awake, alert, oriented x3, but with no focal deficits. PSYCHIATRIC: The patient appears to be severely depressed, but there is no agitation. LABORATORY DATA: A white count of 5100, hemoglobin is 9.5, hematocrit is 29.4, and platelet count is 207,000. The patient's sodium is 134.9, potassium 4.1, chloride 94, CO2 is 31. The patient's BUN is 51, creatinine is 1.47. GFR is reduced at 34 mL, which is chronic kidney disease stage 3, which has progressed from stage 4 down to stage 3. Glucose is 225, calcium is 11, and phosphorus is 3.9, magnesium is 2.1. IMPRESSION: 1. ACUTE ON CHRONIC CONGESTIVE HEART FAILURE. THIS IS SECONDARY TO COMMAND SYSTOLIC AND DIASTOLIC HEART FAILURE. THE SYSTOLIC HEART FAILURE IS DUE TO VALVULAR DISEASE AND VOLUME OVERLOAD DUE TO RENAL FAILURE CAUSING SYSTOLIC HEART FAILURE AND ALSO THE PATIENT HAS LV DIASTOLIC DYSFUNCTION CAUSING DIASTOLIC FAILURE, HENCE IT IS A COMBINED ACUTE ON CHRONIC COMBINED SYSTOLIC AND DIASTOLIC HEART FAILURE. The patient is on renal dialysis with ultrafiltration today. 2. ELEVATED TROPONIN I SECONDARY TO CONGESTIVE HEART FAILURE AND ACUTE ON CHRONIC KIDNEY DISEASE. NO EVIDENCE OF NON-ST ELEVATION MA. 3. CHRONIC RESPIRATORY FAILURE AND HYPOXEMIA. The patient uses BiPAP at night and nasal O2 in the morning. 4. COPD, MUCH IMPROVED, ALMOST BACK TO BASELINE. 5. PNEUMONIA. Patient is on antibiotics, improved. 6. CHRONIC KIDNEY DISEASE STAGE 3. 7. DUAL CHAMBER PERMANENT PACEMAKER PLACEMENT WITH A HISTORY OF COMPLETE HEART BLOCK IN THE PAST. 8. VALVULAR DISEASE WITH MILD AORTIC STENOSIS AND SEVERE MITRAL REGURGITATION. Will recheck the patient's echo after dialysis in a day or 2. 9. DEPRESSION. 10. HYPERTENSION. 11. 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 12. HYPERLIPIDEMIA. RECOMMENDATIONS: Continue aspirin 81 mg daily. Continue atorvastatin. Continue Coreg and Cardizem. Continue Lasix. Continue dialysis. Continue isosorbide mononitrate 120 mg p.o. at bedtime. Continue metolazone as mentioned earlier. The patient is on DVT/PE prophylaxis on Lovenox 30 mg subcutaneously every morning. Will recheck the patient's echo/limited followup echo to see the severity of the patient's mitral regurgitation, and if it is still severe in spite of the dialysis then, will discuss with [facility] to see if they would take her to do a catheterization to make sure that there is no coronary artery disease to address the mitral valve issue. This has been discussed with the patient. Note that the patient is a DNR. Her daughter is the surrogate healthcare decision maker. Thirty minutes spent on the patient with more than 50% of the time spent in direct patient care, reviewing the patient's medications and discussions with the and the patient's brother and also discussions and coordination of care with other caregiving providers on this case. Will follow with you. DICTATING PHYSICIAN: KEN GIBSON M.D. [id number] PHY#: [id number] ID: [id number] JOB#: [id number] ACCT: [id number] cc: > MTDD
--- NOTE | 2017-01-20 14:41 | PDOC PROGRESS REPORT ---
Subjective Progress Note for:: 01/20/17 Subjective:: reason for visit: f/u heart failure, CKD, hypoxia hospital course: per other's notes - "JACINTA LUNSFORD is an 81 year old female with multiple medical problems including diastolic congestive heart failure, chronic kidney disease, COPD, mitral regurgitation, and obesity. She has had numerous hospitalizations over the past 5 years. Medication management has been difficult because of her cardiorenal syndrome. She is followed by Dr. Gibson for cardiology and Dr. De Luna for nephrology. She presented 01/08/2017 with increased work of breathing. The chest x-ray showed vascular congestion. While getting up to the commode in the emergency department she had an oxygen desaturation into the 80s, and then into the 60s. She received a dose of Lasix and began diuresing. She had a nebulizer treatment and this also seemed to help. She denied chest pain. When I saw her in the emergency department she was wearing BiPAP. She confirmed a DO NOT INTUBATE status. The patient was admitted to the intermediate ICU for further evaluation and treatment. She diuresed well on IV Lasix. Rx changed to PO 01/11. Total fluid balance this admission is -4.6L. She remains on BiPAP prn but is now tolerating nasal O2 for some time. She is breathing more easily but this is variable. At times she is very SOB. Cardiology is following and await Nephro consultation. May need to reconsult Dr. De Luna in the AM." I inherited her care Friday and she was still c/o SOA with minimal exertion, still fatigues detention through the day and requires further BiPAP tx; overall feels better but clearly not back to baseline. Her severe mitral regurg is complicating her volume status, competing with her failing renal function to create a perfect storm. ideally she would undergo MV replacement but would require heart cath with dye prior to the procedure likely resulting in need for hemodialysis. so after d/w dr de luna she has elected for ultrafiltration/hemodialysis and dr salazar placed femoral catheter Friday morning for first dialysis later that day and again Friday. she tolerates as well as could be expected with humming in her ears that regressed, frequent ectopy with multiple PVCs that resolved and generalized weakness and "washed out" feeling. her breathing is better, she has used BIPAP less since the dialysis, seems to rest better at night with it in place. Dr Gibson intends to re-evaluate the valve by echo Tues or Wed to assess dynamic effects of hemodialysis and will guide our therapy from there. ROS: as above, denies chest pain, fevers/chills, emesis, diarrhea, total 10 systems reviewed remaining systems negative Physical Exam Vital Signs: Temp Pulse Resp BP Pulse Ox 98.0 F 60 14 153/75 H 96 01/20/17 12:00 01/20/17 14:25 01/20/17 14:25 01/20/17 12:00 01/20/17 14:25 Intake & Output 01/19/17 01/20/17 01/21/17 06:59 06:59 06:59 Intake Total 679 1094 Output Total 1475 1800 2800 Balance -796 -706 -2800 Weight 67.1 kg 67.7 kg General appearance: PRESENT: no acute distress, well-developed, well-nourished Head exam: PRESENT: atraumatic, normocephalic Eye exam: PRESENT: EOMI. ABSENT: conjunctival injection, scleral icterus Mouth exam: PRESENT: dry mucosa, neck supple Neck exam: PRESENT: full ROM. ABSENT: tracheal deviation Respiratory exam: PRESENT: crackles - throughout, rales - right base, unlabored. ABSENT: accessory muscle use, rhonchi, wheezes Cardiovascular exam: PRESENT: RRR, systolic murmur - as before Pulses: PRESENT: normal radial pulses, normal dorsalis pedis pul GI/Abdominal exam: PRESENT: normal bowel sounds, soft. ABSENT: tenderness Gentrourinary exam: PRESENT: indwelling catheter Extremities exam: PRESENT: pedal edema - now just trace edema of BLEs Musculoskeletal exam: PRESENT: ambulatory - but only with assistance, full ROM Neurological exam: PRESENT: alert, awake, oriented to person, oriented to place , oriented to time, oriented to situation Psychiatric exam: PRESENT: appropriate affect, normal mood Skin exam: PRESENT: dry, warm Results Laboratory Results: 01/20/17 06:44 01/20/17 06:44 01/20/17 01/20/17 06:44 06:44 WBC 5.1 RBC 3.19 L Hgb 9.5 L Hct 29.4 L MCV 92 MCH 29.7 MCHC 32.2 RDW 17.1 H Plt Count 207 Sodium 134.9 L Potassium 4.1 Chloride 94 L Carbon Dioxide 31 H Anion Gap 10 BUN 51 H Creatinine 1.47 H Est GFR ( Amer) 41 L Est GFR (Non-Af Amer) 34 L Glucose 225 H Calcium 11.0 H Phosphorus 3.9 Magnesium 2.1 01/08/17 01/08/17 01/08/17 17:55 17:55 23:59 Creatine Kinase < 20 L < 20 L CK-MB (CK-2) 0.64 Troponin I 0.028 01/08/17 01/09/17 01/09/17 23:59 06:42 06:42 Creatine Kinase < 20 L CK-MB (CK-2) 0.55 0.56 Troponin I 0.058 0.137 Impressions: Chest X-Ray 01/19/17 00:00 IMPRESSION: Stable appearance of the chest Assessment & Plan - Diagnosis (1) Acute on chronic respiratory failure with hypoxemia Is this a current diagnosis for this admission?: YesPlan: improved but not back to baseline. repeat hemodialysis today. continue IS. (2) COPD (chronic obstructive pulmonary disease) Qualifiers: COPD type: emphysema Emphysema type: unspecified Qualified Code(s) : J43.9 - Emphysema, unspecified Is this a current diagnosis for this admission?: YesPlan: without acute exacerbation but certainly complicates her recovery. 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 continue to monitor for now. (4) Mitral regurgitation Qualifiers: Cardiac valve disease etiology: nonrheumatic Qualified Code(s): I34.0 - Nonrheumatic mitral (valve) insufficiency Is this a current diagnosis for this admission?: YesPlan: discussed with dr gibson, will see how the valve responds to offloading by HD before deciding how to proceed with valve replacement evaluation. (5) Acute on chronic diastolic (congestive) heart failure Is this a current diagnosis for this admission?: YesPlan: improved but not back to baseline. continue as above (6) Cardiorenal syndrome with renal failure Is this a current diagnosis for this admission?: YesPlan: improved but not back to baseline. as above - Time Time Spent with patient: 25-34 minutes
--- NOTE | 2017-01-20 18:06 | PDOC PROGRESS REPORT ---
Subjective Progress Note for:: 01/20/17 Subjective:: Patient during dialysis this morning at around 8:20 AM. Patient tells me that she feels better in terms of breathing since Friday's dialysis. Does not otherwise have any other complaints. He was tolerating dialysis without any problems and completed the treatment without any arrhythmia. She tolerated ultrafiltration with a little bit of dialysis today. Physical Exam Vital Signs: Temp Pulse Resp BP Pulse Ox 98.0 F 60 14 153/75 H 96 01/20/17 12:00 01/20/17 14:25 01/20/17 14:25 01/20/17 12:00 01/20/17 14:25 Intake & Output 01/19/17 01/20/17 01/21/17 06:59 06:59 06:59 Intake Total 679 1094 Output Total 1475 1800 2800 Balance -796 -446 -2800 Weight 67.1 kg 67.7 kg Vital signs during dialysis: Pressure 145/95, heart rate 98, respiratory rate of 15, temperature 98F, oxygen saturation 98% at 2 L by nasal cannula, blood flow rate of 250 mL/min, and dialysate flow rate of 500 mL/min. Exam: General appearance: PRESENT: no acute distress, cooperative, well-developed, well-nourished Head exam: PRESENT: atraumatic, normocephalic Eye exam: PRESENT: conjunctiva slightly pale, PERRLA. ABSENT: scleral icterus Neck exam: ABSENT: JVD Respiratory exam: PRESENT: Diminished breath sounds. Bilateral basal crackles which seems to decreased ABSENT: Rhonchi, unlabored, wheezes Cardiovascular exam: PRESENT: Regular rate rhythm -+S1, +S2. Grade 2/6 systolic murmur ABSENT: diastolic murmur GI/Abdominal exam: PRESENT: normal bowel sounds, soft. ABSENT: guarding, mass, tenderness Extremities exam: Decrease bilateral extremity trace pitting edema Neurological exam: PRESENT: alert, awake, oriented to person, place and time. Skin exam: PRESENT: dry, warm, Results Laboratory Results: 01/20/17 06:44 01/20/17 06:44 01/20/17 01/20/17 06:44 06:44 WBC 5.1 RBC 3.19 L Hgb 9.5 L Hct 29.4 L MCV 92 MCH 29.7 MCHC 32.2 RDW 17.1 H Plt Count 207 Sodium 134.9 L Potassium 4.1 Chloride 94 L Carbon Dioxide 31 H Anion Gap 10 BUN 51 H Creatinine 1.47 H Est GFR ( Amer) 41 L Est GFR (Non-Af Amer) 34 L Glucose 225 H Calcium 11.0 H Phosphorus 3.9 Magnesium 2.1 01/08/17 01/08/17 01/08/17 17:55 17:55 23:59 Creatine Kinase < 20 L < 20 L CK-MB (CK-2) 0.64 Troponin I 0.028 01/08/17 01/09/17 01/09/17 23:59 06:42 06:42 Creatine Kinase < 20 L CK-MB (CK-2) 0.55 0.56 Troponin I 0.058 0.137 Impressions: Chest X-Ray 01/19/17 00:00 IMPRESSION: Stable appearance of the chest Assessment & Plan - Diagnosis (1) Acute on chronic congestive heart failure Qualifiers: Congestive heart failure type: combined Qualified Code(s): I50.43 - Acute on chronic combined systolic (congestive) and diastolic (congestive) heart failure Is this a current diagnosis for this admission?: YesPlan: This is due to valvular heart disease. Today we did second ultrafiltration/ hemodialysis treatment to help with fluid removal. We were able to take off 2.8 L of fluid again today which the patient tolerated well. Continue current diuretics with Lasix and metolazone. We will need to reevaluate for further need for ultrafiltration. I spoke to Dr. Chinchilla today. He ordered for a limited echocardiogram tomorrow and will reassess the patient's valvular and cardiac condition. Will await further plan per Dr. Chinchilla. (2) Pulmonary edema Qualifiers: Chronicity: acute Qualified Code(s): J81.0 - Acute pulmonary edema Is this a current diagnosis for this admission?: YesPlan: Improvement with ultrafiltration. Continues to make good urine output with current diuretics. (3) Cardiorenal syndrome with renal failure Is this a current diagnosis for this admission?: Yes (4) Chronic kidney disease, stage IV (severe) Is this a current diagnosis for this admission?: YesPlan: Kidney function is actually currently stable. Patient is not qualified for chronic hemodialysis treatment aside from temporary acute ultrafiltration to help the congestive heart failure. We did dialysis today for 2.5 hours, using the patient's dialysis, with 3 potassium bath, blood flow rate of 250 mL per minute, dialysate flow rate of 500 mL per minute, ultrafiltration at least 2.5 L, no heparin and Procrit with 10,000 units during dialysis intravenously. We did an isolated ultrafiltration during the first 1-1/2 hours of treatment today and just 1 hour of hemodialysis. Patient tolerated procedure well. (5) Acute on chronic respiratory failure with hypoxemia Is this a current diagnosis for this admission?: YesPlan: Due to acute on chronic congestive heart failure. (6) Anemia of chronic disease Is this a current diagnosis for this admission?: YesPlan: We will start the patient on Procrit during hemodialysis. Procrit 10,000 units given today. (7) Valvular heart disease Is this a current diagnosis for this admission?: YesPlan: Patient with severe mitral regurgitation and aortic stenosis. (8) Diabetes mellitus type 2 Is this a current diagnosis for this admission?: Yes (9) Essential hypertension Is this a current diagnosis for this admission?: Yes - Time Time with patient: 15-25 minutes
[2017-01-20] MEDS: ANASTROZOLE 1 MG TABLET PO SCH (21:54)
[2017-01-20] MEDS: ATORVASTATIN CALCIUM 20 MG TABLET PO SCH (21:54)
[2017-01-20] MEDS: ISOSORBIDE MONONITRATE 60 MG TAB.ER.24H PO SCH (21:54)
[2017-01-20] MEDS: GABAPENTIN 100 MG CAPSULE PO SCH (21:54)
[2017-01-21] MEDS: HYDROCODONE/ACETAMINOPHEN 10-325 MG TABLET PO PRN ×3 (03:45→22:34)
[2017-01-21] MEDS: FUROSEMIDE INJ/PF 20 MG/2 ML SDV IV SCH ×2 (05:56→16:44)
[2017-01-21 06:06] LABS: ANION GAP 14 (5-19); BLOOD UREA NITROGEN 51 mg/dL (7-20); CALCIUM 10.9 mg/dL (8.4-10.2); CARBON DIOXIDE 27 mmol/L (22-30); CHLORIDE 94 mmol/L (98-107); CREATININE RESULT 2.43 mg/dL (0.52-1.25); GLUCOSE 203 mg/dL (75-110); MAGNESIUM 2.1 mg/dL (1.6-2.3); SODIUM 134.5 mmol/L (137-145)
[2017-01-21 06:16] LABS: POTASSIUM 5.4 mmol/L (3.6-5.0)
[2017-01-21] MEDS: METOLAZONE 2.5 MG TABLET PO SCH (10:46)
[2017-01-21] MEDS: PAROXETINE HCL 20 MG TABLET PO SCH (10:47)
[2017-01-21] MEDS: CARVEDILOL 12.5 MG TABLET PO SCH ×2 (10:47→22:34)
[2017-01-21] MEDS: MAGNESIUM OXIDE 400 MG TABLET PO SCH ×3 (10:48→17:46)
[2017-01-21] MEDS: POTASSIUM CHLORIDE 10 MEQ TABLET.SA PO SCH ×2 (10:48→17:50)
[2017-01-21] MEDS: ALLOPURINOL 100 MG TABLET PO SCH (10:48)
[2017-01-21] MEDS: FAMOTIDINE 20 MG TABLET PO SCH (10:49)
[2017-01-21] MEDS: OMEGA-3 ACID ETHYL ESTERS 1 GM CAPSULE PO SCH ×2 (10:49→17:50)
[2017-01-21] MEDS: ASPIRIN 81 MG TABLET, ENT COATED PO SCH (10:49)
[2017-01-21] MEDS: DILTIAZEM HCL 240 MG CAPSULE.CR PO SCH ×2 (10:50→22:33)
[2017-01-21] MEDS: CLONIDINE HCL 0.1 MG TABLET PO SCH ×2 (10:50→22:34)
[2017-01-21] MEDS: POLYETHYLENE GLYCOL 3350 POWDER 17 GM/1 PACKET PO SCH (10:51)
[2017-01-21] MEDS: ENOXAPARIN SODIUM INJ 30 MG/0.3 ML DISP.SYRIN SUBCUT SCH (10:51)
[2017-01-21] MEDS: SODIUM CHLORIDE NASAL SPRAY 44 ML NASL SCH ×4 (10:51→22:35)
[2017-01-21] MEDS: DOCUSATE SODIUM 100 MG CAPSULE PO SCH ×2 (10:51→17:48)
[2017-01-21] MEDS: INSULIN LISPRO 100 UNIT/ML 3 ML VIAL SUBCUT PRN ×2 (16:58→22:35)
--- NOTE | 2017-01-21 17:02 | XCELERA REPORT ---
[address] [address] Transthoracic Echocardiogram Report Name: JACINTA LUNSFORD Age: 81 yrs Gender: Female : 1935 Patient Status: Inpatient Patient Location: [id number]\S\332\S\B Study Date: 01/21/2017 10:26 AM Height: 61 in Weight: 149 lb BSA: 1.7 m2 Procedure: A two-dimensional transthoracic echocardiogram with color flow and Doppler was performed in limited views only. Study Quality: Fair. Reason For Study: Assess MR severity History: Assess MR severity. Ordering Physician: SABA GIBSON Performed By: Beth Hill Interpretation Summary Calcified MV leaflet tips.No MS.Severe MR . MMode/2D Measurements \T\ Calculations MV Diam: 2.8 cm LA dimension: 4.0 cm LA A2Cs: LA A4Cs: 27.2 cm2 27.0 cm2 LA length: LA Vol Index (BP): LA Volume: 6.6 cm 94.2 ml 56.5 ml/m2 Doppler Measurements \T\ Calculations MV area (1 diam): 6.1 cm2 LV dP/dt: 1010 mmHg/sMR max tiff: 636.3 cm/sec MR max P.0 mmHg MV Flow area(1diam): 6.1 cm2 Mitral Valve Calcified MV leaflet tips.No MS.Severe MR . : SABA GIBSON > Saba Gibson
--- NOTE | 2017-01-21 17:26 | PDOC PROGRESS REPORT ---
Subjective Progress Note for:: 01/21/17 Subjective:: Patient said that she is breathing better today. However she feels thirsty when she woke up yesterday after dialysis. She still feels thirsty today. She tells me that she is trying to limit her fluid intake but she knows that she should limit that. Her urine output has also been decreased since yesterday until today. Other than that she does not have any other complaints. Physical Exam Vital Signs: Temp Pulse Resp BP Pulse Ox 97.3 F 59 L 19 147/52 H 100 01/21/17 10:55 01/21/17 10:55 01/21/17 10:55 01/21/17 10:55 01/21/17 10:55 Intake & Output 01/20/17 01/21/17 01/22/17 06:59 06:59 06:59 Intake Total 1094 629 488 Output Total 1800 3400 200 Balance -706 -8831 288 Weight 67.7 kg 68.4 kg General appearance: PRESENT: no acute distress, cooperative, well-developed, well-nourished Head exam: PRESENT: atraumatic, normocephalic Eye exam: PRESENT: conjunctiva pale, PERRLA. ABSENT: scleral icterus Mouth exam: PRESENT: dry mucosa, neck supple Neck exam: PRESENT: full ROM. ABSENT: lymphadenopathy Respiratory exam: PRESENT: crackles - Improved at the lung bases, decreased breath sounds. ABSENT: rhonchi, wheezes Cardiovascular exam: PRESENT: RRR, +S1, +S2, systolic murmur - long drawn perdue systolic and conducted to the axill.. ABSENT: diastolic murmur GI/Abdominal exam: PRESENT: hyperactive bowel sounds, soft. ABSENT: diminished bowel sounds, mass, organomegaly, tenderness Extremities exam: ABSENT: pedal edema Neurological exam: PRESENT: alert, altered, oriented to person, oriented to place, oriented to time Skin exam: PRESENT: dry, normal color Results Laboratory Results: 01/20/17 06:44 01/21/17 05:20 01/21/17 05:20 Sodium 134.5 L Potassium 5.4 H D Chloride 94 L Carbon Dioxide 27 Anion Gap 14 BUN 51 H Creatinine 2.43 H Est GFR ( Amer) 23 L Est GFR (Non-Af Amer) 19 L Glucose 203 H Calcium 10.9 H Magnesium 2.1 01/08/17 01/08/17 01/08/17 17:55 17:55 23:59 Creatine Kinase < 20 L < 20 L CK-MB (CK-2) 0.64 Troponin I 0.028 NT-Pro-B Natriuret Pep 01/08/17 01/09/17 01/09/17 23:59 06:42 06:42 Creatine Kinase < 20 L CK-MB (CK-2) 0.55 0.56 Troponin I 0.058 0.137 NT-Pro-B Natriuret Pep 01/21/17 05:20 Creatine Kinase CK-MB (CK-2) Troponin I NT-Pro-B Natriuret Pep 2440 H Impressions: Chest X-Ray 01/19/17 00:00 IMPRESSION: Stable appearance of the chest Assessment & Plan - Diagnosis (1) Acute on chronic congestive heart failure Qualifiers: Congestive heart failure type: combined Qualified Code(s): I50.43 - Acute on chronic combined systolic (congestive) and diastolic (congestive) heart failure Is this a current diagnosis for this admission?: YesPlan: This is due to valvular heart disease. We did second ultrafiltration/ hemodialysis treatment to help with fluid removal. We were able to take off 2.8 L of fluid again yesterday which the patient tolerated well. Clinically the patient seems to be on the dry side today. Due to the decreased urine output I will hold her Lasix and metolazone for the next 24 hours. I advised patient to drink a little bit more water according to her thirst. However I also advised her not to drink excessively. She had a limited echocardiogram today and upon discussing with Dr. Chinchilla he will reevaluate the patient later today for the cardiac plan. (2) Pulmonary edema Qualifiers: Chronicity: acute Qualified Code(s): J81.0 - Acute pulmonary edema Is this a current diagnosis for this admission?: YesPlan: Improvement with ultrafiltration. (3) Cardiorenal syndrome with renal failure Is this a current diagnosis for this admission?: Yes (4) Chronic kidney disease, stage IV (severe) Is this a current diagnosis for this admission?: YesPlan: As mentioned above urine output has decreased today. This could be due to negative fluid balance of -13 L since admission. Her BUN and creatinine are also increased today as well as mild increase in potassium. I think the patient is currently on the dry side now if not euvolemic. The patient's current kidney function today reflects most likely the patient's actual usual baseline kidney function. I will hold the patient's Lasix and metolazone for the next 24 hours and resume accordingly as appropriate. I will reevaluate the patient tomorrow including her labs and decide if she will need any hemodialysis with or without ultrafiltration. We will hold any PermCath placement for now. (5) Acute on chronic respiratory failure with hypoxemia Is this a current diagnosis for this admission?: YesPlan: Due to acute on chronic congestive heart failure. (6) Anemia of chronic disease Is this a current diagnosis for this admission?: YesPlan: We will start the patient on Procrit during hemodialysis. Procrit 10,000 units given yesterday. (7) Valvular heart disease Is this a current diagnosis for this admission?: YesPlan: Patient with severe mitral regurgitation and aortic stenosis. (8) Diabetes mellitus type 2 Is this a current diagnosis for this admission?: Yes (9) Essential hypertension Is this a current diagnosis for this admission?: Yes - Notes Notes: Discussed assessment and plan with the patient. While in the room I had the patient call her daughter Dina Gustafson because she has been requesting to speak to me. I discussed with the daughter about the patient's current condition and update her as to my assessment and plan. She had questions regarding the PermCath which we are holding for now. I answered all her questions and she understood. Currently we are awaiting Dr. Chinchilla's discussion as to the cardiac plan. - Time Time with patient: Greater than 35 minutes
--- NOTE | 2017-01-21 18:06 | PDOC PROGRESS REPORT ---
Subjective Progress Note for:: 01/21/17 Subjective:: This is a follow-up visit for diastolic heart failure. Feels that her breathing is improved overall. The swelling is also improved with dialysis. SHe denies any chest pain. Acute events overnight Physical Exam Vital Signs: Temp Pulse Resp BP Pulse Ox 97.6 F 58 L 19 124/58 L 100 01/21/17 07:20 01/21/17 07:20 01/21/17 07:20 01/21/17 07:20 01/21/17 07:20 Intake & Output 01/20/17 01/21/17 01/22/17 06:59 06:59 06:59 Intake Total 1094 629 Output Total 1800 0610 Balance -968 -2129 Weight 67.7 kg 68.4 kg Physical exam: General: This is a well-developed elderly appearing white female resting in bed currently in no acute distress Heart: Regular rate and rhythm. 2/6 systolic ejection murmur heard best over the upper left sternal border Lungs: Diminished at the bases bilaterally with equal rise and fall of the chest. Abdomen: Nondistended Extremities: Clubbing cyanosis. Trace Edema Neuro: Awake alert oriented. Cranial nerves are grossly intact Results Laboratory Results: 01/20/17 06:44 01/21/17 05:20 01/21/17 05:20 Sodium 134.5 L Potassium 5.4 H D Chloride 94 L Carbon Dioxide 27 Anion Gap 14 BUN 51 H Creatinine 2.43 H Est GFR ( Amer) 23 L Est GFR (Non-Af Amer) 19 L Glucose 203 H Calcium 10.9 H Magnesium 2.1 01/08/17 01/08/17 01/08/17 17:55 17:55 23:59 Creatine Kinase < 20 L < 20 L CK-MB (CK-2) 0.64 Troponin I 0.028 NT-Pro-B Natriuret Pep 01/08/17 01/09/17 01/09/17 23:59 06:42 06:42 Creatine Kinase < 20 L CK-MB (CK-2) 0.55 0.56 Troponin I 0.058 0.137 NT-Pro-B Natriuret Pep 01/21/17 05:20 Creatine Kinase CK-MB (CK-2) Troponin I NT-Pro-B Natriuret Pep 2440 H Impressions: Chest X-Ray 01/19/17 00:00 IMPRESSION: Stable appearance of the chest Assessment & Plan - Diagnosis (1) Acute on chronic respiratory failure with hypoxemia Is this a current diagnosis for this admission?: YesPlan: This is multifactorial secondary to underlying end-stage renal disease on hemodialysis, mitral valve dysfunction, and heart failure. Continue oxygen and management of underlying conditions. (2) Acute on chronic congestive heart failure Qualifiers: Congestive heart failure type: combined Qualified Code(s): I50.43 - Acute on chronic combined systolic (congestive) and diastolic (congestive) heart failure Is this a current diagnosis for this admission?: YesPlan: Patient is greatly benefited from dialysis. Cardiology is following. Patient with severe mitral valve dysfunction. Cardiology will call [facility] to inquire about a transfer for mitral valve replacement. Continue current management. (3) Diabetes mellitus type 2 Is this a current diagnosis for this admission?: YesPlan: Continue current regimen (4) Chronic kidney disease, stage IV (severe) Is this a current diagnosis for this admission?: YesPlan: Continue dialysis as per nephrology service - Time Time Spent with patient: 25-34 minutes - Inpatient Certification Medical Necessity: Need Close Monitoring Due to Risk of Patient Decompensation
--- NOTE | 2017-01-21 18:38 | PROGRESS NOTE E ---
Progress Note NAME: JACINTA LUNSFORD : 1935 AGE: 81Y DATE: 01/21/2017 ROOM: 332 SUBJECTIVE: The patient is less depressed. She states at rest she has no shortness of breath. She still has some orthopnea but no PND. There is no leg edema. In fact since after the ultrafiltration yesterday since after dialysis, the patient is feeling thirsty. Her GFR has gone down from 33 to 19. Hence, she is over fluid withdrawn due to ultrafiltration. There is no GI bleed. There is no chest pain or discomfort. There is no TIA or CVA symptoms. OBJECTIVE: GENERAL: The patient at present has lost a lot of weight and appears to be within her BMI limits. VITAL SIGNS: She is afebrile with a temperature of 98.1 degrees Fahrenheit, pulse is 60 beats per minute, AV paced rhythm, blood pressure is 131/52, respirations are 18 per minute, O2 saturations on 3 liters are 100%. HEAD: Atraumatic, normocephalic. EYES: Pupils are equal, round, regular, reactive to light and accommodation. Extraocular movements are normal. There is no conjunctival pallor. There is no scleral icterus. ENT: Negative. NECK: Supple. There is no JVD. Carotids are equal with bilateral carotid bruits. There is no lymphadenopathy. There is no goiter. Trachea is central. Mouth, tongue, and mucous membranes of the mouth are dry. There is no ulcers. There is no bleeding of the gums. LUNGS: There is a few scattered crackles in the left base. There are no rales or CHF and no rhonchi or wheezing. CARDIOVASCULAR SYSTEM: S1 and S2 are heard. S1 is of normal intensity. There is no S3 gallop. There is no S4 gallop. There is a systolic murmur and aortic stenosis present. There is murmur of mitral regurgitation which is severe which is heard in the apex with radiation to the left axilla. There is no rub. ABDOMEN: Soft, nontender. There is no hepatosplenomegaly. Bowel sounds are well heard. There are no tender areas or masses. EXTREMITIES: Femorals are diminished. There are no femoral bruits. Leg pulses are diminished. There is no cyanosis or clubbing. There is no pedal edema. There is no DVT or cellulitis. CENTRAL NERVOUS SYSTEM: The patient is conscious, awake, alert, oriented x3 with no focal deficits. PSYCHIATRIC: The patient appears to be less depressed today and the patient is not agitated. Today her judgment and insight are intact. LABORATORY DATA: The patient's 24 hour intake and output including the ultrafiltration from which 2800 mL have been removed. Her total intake is 620 mL, output is 3400 mL which includes the patient's urine output and the amount drawn ultrafiltration by dialysis. The patient's sodium is 134.5, potassium 5.4, chloride is 94, CO2 is 27, the patient's BUN is 51, creatinine has gone up to 2.43, GFR has gone down to 19 mL compared to 33 mL yesterday. Her glucose is 203, calcium is 10, magnesium is 2.1. Her Pro-BNP is 2440. The patient's white count is 5100, hemoglobin is 9.5, hematocrit is 29.4, and platelet count is 207,000. Note that the patient's limited echo shows calcified mitral valve leaflet tips. There is no mitral stenosis. There is severe mitral regurgitation. IMPRESSION: 1. SEVERE MITRAL REGURGITATION. This seems to be static and not dynamic since even after so much fluid withdrawn, the mitral regurgitation appears to be severe. The patient needs something done to the mitral valve, either repair or bioprosthetic mitral valve replacement. 2. ACUTE ON CHRONIC CONGESTIVE HEART FAILURE. At present over diuresed and *------* ultrafiltration. The patient has a history of chronic diastolic heart failure and systolic heart failure secondary to volume overload and due to mitral regurgitation. 3. ELEVATED TROPONIN I SECONDARY TO CONGESTIVE HEART FAILURE AND ACUTE ON CHRONIC KIDNEY DISEASE. NO EVIDENCE OF NON-ST ELEVATION [place]. 4. CHRONIC RESPIRATORY FAILURE AND HYPOXEMIA. The patient uses BiPAP at night and nasal O2 in the morning. At present O2 sat is 100% on 3 liters. 5. COPD, MUCH IMPROVED, PATIENT BACK TO BASELINE. 6. PNEUMONIA. Patient is on antibiotics, much improved. 7. CHRONIC KIDNEY DISEASE. At present progressed to stage 4, yesterday she was stage 3. GFR is now 19 mL. This is most likely due to more fluid being withdrawn compared to intake. 8. DUAL CHAMBER PERMANENT PACEMAKER PLACEMENT WITH A HISTORY OF COMPLETE HEART BLOCK IN THE PAST. 9. VALVULAR DISEASE WITH MILD AORTIC STENOSIS AND SEVERE MITRAL REGURGITATION. 10. DEPRESSION. 11. HYPERTENSION. Well controlled. 12. HYPERKALEMIA. 13. 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 14. HYPERLIPIDEMIA. 15. PAST HISTORY OF GI BLEED WITH NO RECURRENCE. RECOMMENDATIONS: Will hold off on the ultrafiltration for now. Will discuss with [facility] to see if they would address the mitral valve issue. Note that the patient keeps coming back into the hospital secondary to acute on chronic kidney disease compounded with mitral regurgitation which can further worsen renal function. This seems to be a vicious [place] with the patient. I have discussed this with the patient and the patient's brother. Will call the patient's daughter on the telephone and discuss with her. Will discuss with [facility] in the morning. I have given them a full detailed explanation and history of the patient and the diagnostic data on the patient. Note, 37 minutes was spent on this patient with more than 50% of the time spent in direct patient care and reviewing the patient's medications and also coordination of care with other physicians, discussed with the Tool And Die Engineer. The hyperkalemia will be addressed by the Tool And Die Engineer. Note that the patient is DNR. His daughter is the surrogate health care decision maker. Discussed with the hospitalist taking care of the patient. DICTATING PHYSICIAN: KEN GIBSON M.D. [id number] ARMANDO#: [id number] ID: [id number] JOB#: [id number] ACCT: [id number] cc: >
[2017-01-21] MEDS: ANASTROZOLE 1 MG TABLET PO SCH (22:32)
[2017-01-21] MEDS: ISOSORBIDE MONONITRATE 60 MG TAB.ER.24H PO SCH (22:32)
[2017-01-21] MEDS: GABAPENTIN 100 MG CAPSULE PO SCH (22:33)
[2017-01-21] MEDS: ATORVASTATIN CALCIUM 20 MG TABLET PO SCH (22:33)
[2017-01-22 06:11] LABS: ABSOLUTE BASOPHILS # (AUTO) 0.1 10^3/uL (0.0-0.2); ABSOLUTE EOSINOPHILS # (AUTO) 0.2 10^3/uL (0.0-0.6); ABSOLUTE LYMPHOCYTES (AUTO) 1.4 10^3/uL (0.5-4.7); ABSOLUTE MONOCYTES (AUTO) 0.5 10^3/uL (0.1-1.4); ABSOLUTE NEUT (AUTO) 3.9 10^3/uL (1.7-8.2); BASOPHILS % (AUTO) 0.9 % (0-2); EOSINOPHILS % (AUTO) 3.5 % (0-6); HEMATOCRIT 28.7 % (36.0-47.0); HEMOGLOBIN 9.4 g/dL (12.0-15.5); HGB HCT DIFFERENCE -0.5; LYMPHOCYTES % (AUTO) 23.4 % (13-45); MEAN CORPUSCULAR HEMOGLOBIN 29.8 pg (27.0-33.4); MEAN CORPUSCULAR HGB CONC 32.8 g/dL (32.0-36.0); MEAN CORPUSCULAR VOLUME 91 fl (80-97); MONOCYTES % (AUTO) 8.1 % (3-13); RED BLOOD COUNT 3.15 10^6/uL (3.72-5.28); SEGMENTED NEUTROPHILS % (AUTO) 64.1 % (42-78); WHITE BLOOD COUNT 6.1 10^3/uL (4.0-10.5)
[2017-01-22 06:35] LABS: ANION GAP 11 (5-19); BLOOD UREA NITROGEN 66 mg/dL (7-20); CALCIUM 10.9 mg/dL (8.4-10.2); CARBON DIOXIDE 28 mmol/L (22-30); CHLORIDE 91 mmol/L (98-107); CREATININE RESULT 2.56 mg/dL (0.52-1.25); GLUCOSE 209 mg/dL (75-110); POTASSIUM 5.5 mmol/L (3.6-5.0); SODIUM 129.8 mmol/L (137-145)
[2017-01-22] MEDS: CARVEDILOL 12.5 MG TABLET PO SCH (11:08)
[2017-01-22] MEDS: POTASSIUM CHLORIDE 10 MEQ TABLET.SA PO SCH (11:08)
[2017-01-22] MEDS: ALLOPURINOL 100 MG TABLET PO SCH (11:08)
[2017-01-22] MEDS: PAROXETINE HCL 20 MG TABLET PO SCH (11:08)
[2017-01-22] MEDS: CLONIDINE HCL 0.1 MG TABLET PO SCH (11:09)
[2017-01-22] MEDS: FAMOTIDINE 20 MG TABLET PO SCH (11:09)
[2017-01-22] MEDS: DILTIAZEM HCL 240 MG CAPSULE.CR PO SCH (11:09)
[2017-01-22] MEDS: MAGNESIUM OXIDE 400 MG TABLET PO SCH (11:09)
[2017-01-22] MEDS: OMEGA-3 ACID ETHYL ESTERS 1 GM CAPSULE PO SCH (11:09)
[2017-01-22] MEDS: ASPIRIN 81 MG TABLET, ENT COATED PO SCH (11:10)
[2017-01-22] MEDS: DOCUSATE SODIUM 100 MG CAPSULE PO SCH (11:10)
[2017-01-22] MEDS: SODIUM CHLORIDE NASAL SPRAY 44 ML NASL SCH ×2 (11:11→11:23)
[2017-01-22] MEDS: HYDROCODONE/ACETAMINOPHEN 10-325 MG TABLET PO PRN (11:11)
[2017-01-22] MEDS: ENOXAPARIN SODIUM INJ 30 MG/0.3 ML DISP.SYRIN SUBCUT SCH (11:11)
[2017-01-22] MEDS: POLYETHYLENE GLYCOL 3350 POWDER 17 GM/1 PACKET PO SCH (11:11)
[2017-01-22] MEDS: ONDANSETRON HCL 8 MG TABLET PO PRN (11:19)
[2017-01-22] MEDS: INSULIN LISPRO 100 UNIT/ML 3 ML VIAL SUBCUT PRN (11:22)
[2017-01-22] MEDS ORDERED: SODIUM POLYSTYRENE SULFONATE 15 GM/60 ML PO ONE (12:00)
--- NOTE | 2017-01-22 13:05 | PDOC DISCHARGE SUMMARY ---
General - Admit/Disc Date/PCP Admission Date/Primary Care Provider: 01/08/17 13:48 MANUEL YO, Discharge Date: 01/22/17 - Discharge Diagnosis (1) Acute on chronic respiratory failure with hypoxemia Is this a current diagnosis for this admission?: YesSummary: Resolved and is now back at baseline. Etiologies were multifactorial to include heart failure, mitral valve dysfunction, underlying COPD. (2) Acute on chronic congestive heart failure Is this a current diagnosis for this admission?: YesSummary: Patient is hemodialysis dependent and was dialyzed regularly while here in the hospital. Dialysis has helped her volume overload to the point that she is now been over dialyzed and is not receiving it today. (3) Diabetes mellitus type 2 Is this a current diagnosis for this admission?: YesSummary: Stable continue current medicines. (4) ESRD (end stage renal disease) on dialysis Summary: Hemodialysis as per nephrology (5) Mitral regurgitation Is this a current diagnosis for this admission?: YesSummary: Transferred to [facility] for mitral valve repair/replacement. Being transferred to cardiology service. Arrangements have been made by Dr. Chinchilla. - Additional Information Discharge Activity: Activity As Tolerated, Balance Activity w/Rest, Weigh Daily Home Medications: Allopurinol [Zyloprim 100 mg Tablet] 100 mg PO DAILY 12/19/16 Anastrozole [Arimidex 1 mg Tablet] 1 mg PO DAILY 12/19/16 Ascorbic Acid [Vitamin C 500 mg Tablet] 500 mg PO DAILY 12/19/16 Aspirin [Aspirin EC] 81 mg PO DAILY 12/19/16 Carvedilol [Coreg 25 mg Tablet] 25 mg PO Q12 12/19/16 Cetirizine HCl [Zyrtec 10 mg Tablet] 10 mg PO DAILYP PRN 12/19/16 Famotidine [Pepcid 20 mg Tablet] 20 mg PO Q12 12/19/16 Fenofibrate Nanocrystallized [Triglide] 160 mg PO DAILY 12/19/16 Fluticasone Propionate [Flonase Nasal [place] 50 Mcg/[place] 16 gm] 1 spray NASL Q12 12/19/16 Hydrocodone Bit/Acetaminophen [Hydrocodon-Acetaminophn 10-325] 1 tab PO QIDP PRN 12/19/16 Magnesium Oxide [Mag-Ox 400 mg Tablet] 400 mg PO TID 12/19/16 Nitroglycerin [Nitrostat] 0.4 mg SL Q5MP PRN 12/19/16 Ondansetron HCl [Zofran 8 mg Tablet] 8 mg PO Q8HP PRN 12/19/16 Paroxetine HCl [Paxil 20 mg Tablet] 20 mg PO QAM 12/19/16 Potassium Chloride [K-Tab ER] 20 meq PO BID 12/19/16 Rosuvastatin Calcium [Crestor 10 mg Tablet] 10 mg PO DAILY 12/19/16 Simethicone [Mylicon 80 mg Chewable Tablet] 80 mg PO Q6HP PRN 12/19/16 Gabapentin [Neurontin 100 mg Capsule] 100 mg PO QHS #30 capsule 12/23/16 Albuterol Sulfate [Ventolin 0.083% Neb 2.5 mg/3 mL Ampul] 3 ml NEB RTQ3HP PRN Diltiazem HCl [Cardizem Cd 240 mg Capsule.cr] 240 mg PO Q12 01/08/17 Hum Insulin NPH/Reg Insulin Hm [Insulin 70-30 (NPH/Reg) 100 unit/mL] 20 unit SQ ACSUPPER 01/08/17 Hum Insulin NPH/Reg Insulin Hm [Insulin 70-30 (NPH/Reg) 100 unit/mL] 30 unit SQ [id number] 01/08/17 Insulin Aspart [Novolog Flexpen] 0 unit SQ .PERSLIDINGSCALE 01/08/17 Metolazone [Zaroxolyn 2.5 mg Tablet] 2.5 mg PO DAILY 01/08/17 Clonidine HCl [Catapres 0.1 mg Tablet] 0.1 mg PO Q12 tablet 01/22/17 Isosorbide Mononitrate [Imdur 60 mg Tablet.er] 120 mg PO QHS tab.er.24h [place]-3 Acid Ethyl Esters [Lovaza 1 gm Capsule] 2 gm PO BID capsule 01/22/17 Sodium Chloride [[place] Nasal [place] 44 ml Bottle] 1 spray NASL ACHS bottle 01/22 History of Present Illness History of Present Illness: HPI and clinical course through 01/20, as per previous attendings: Subjective Progress Note for:: 01/20/17 Subjective:: reason for visit: f/u heart failure, CKD, hypoxia hospital course: per other's notes - "JACINTA LUNSFORD is an 81 year old female with multiple medical problems including diastolic congestive heart failure, chronic kidney disease, COPD, mitral regurgitation, and obesity. She has had numerous hospitalizations over the past 5 years. Medication management has been difficult because of her cardiorenal syndrome. She is followed by Dr. Jewell for cardiology and Dr. De Luna for nephrology. She presented 01/08/2017 with increased work of breathing. The chest x-ray showed vascular congestion. While getting up to the commode in the emergency department she had an oxygen desaturation into the 80s, and then into the 60s. She received a dose of Lasix and began diuresing. She had a nebulizer treatment and this also seemed to help. She denied chest pain. When I saw her in the emergency department she was wearing BiPAP. She confirmed a DO NOT INTUBATE status. The patient was admitted to the intermediate ICU for further evaluation and treatment. She diuresed well on IV Lasix. Rx changed to PO 01/11. Total fluid balance this admission is -4.6L. She remains on BiPAP prn but is now tolerating nasal O2 for some time. She is breathing more easily but this is variable. At times she is very SOB. Cardiology is following and await Nephro consultation. May need to reconsult Dr. De Luna in the AM." I inherited her care Friday and she was still c/o SOA with minimal exertion, still fatigues long term through the day and requires further BiPAP tx; overall feels better but clearly not back to baseline. Her severe mitral regurg is complicating her volume status, competing with her failing renal function to create a perfect storm. ideally she would undergo MV replacement but would require heart cath with dye prior to the procedure likely resulting in need for hemodialysis. so after d/w dr de luna she has elected for ultrafiltration/hemodialysis and dr salazar placed femoral catheter Friday morning for first dialysis later that day and again Friday. she tolerates as well as could be expected with humming in her ears that regressed, frequent ectopy with multiple PVCs that resolved and generalized weakness and "washed out" feeling. her breathing is better, she has used BIPAP less since the dialysis, seems to rest better at night with it in place. Dr Jewell intends to re-evaluate the valve by echo or Fri to assess dynamic effects of hemodialysis and will guide our therapy from there. ROS: as above, denies chest pain, fevers/chills, emesis, diarrhea, total 10 systems reviewed remaining systems negative Hospital Course Hospital Course: When I met the patient on 01/21/2017 in stable condition. The bedside she is remains in stable condition. She has no complaints. She is not undergoing dialysis today. Dr. Chinchilla arrangements for her to be transferred to [place] for mitral valve replacement. Patient is waiting for bed assignment. Physical Exam Vital Signs: Temp Pulse Resp BP Pulse Ox 97.4 F 60 18 126/50 H 100 01/22/17 08:00 01/22/17 08:00 01/22/17 08:00 01/22/17 08:00 01/22/17 08:00 Intake & Output 01/21/17 01/22/17 01/23/17 06:59 06:59 06:59 Intake Total 629 1798 Output Total 3400 500 Balance -2771 1298 Weight 68.4 kg 68.5 kg Physical exam: General: This is a well-developed elderly appearing white female resting in bed currently in no acute distress Heart: Regular rate and rhythm. 2/6 systolic ejection murmur heard best over the upper left sternal border Lungs: Diminished at the bases bilaterally with equal rise and fall of the chest. Abdomen: Nondistended Extremities: Clubbing cyanosis. Trace Edema Neuro: Awake alert oriented. Cranial nerves are grossly intact Results Laboratory Results: 01/22/17 05:42 01/22/17 05:42 01/22/17 01/22/17 05:42 05:42 WBC 6.1 RBC 3.15 L Hgb 9.4 L Hct 28.7 L MCV 91 MCH 29.8 MCHC 32.8 RDW 17.0 H Plt Count 209 Seg Neutrophils % 64.1 Lymphocytes % 23.4 Monocytes % 8.1 Eosinophils % 3.5 Basophils % 0.9 Absolute Neutrophils 3.9 Absolute Lymphocytes 1.4 Absolute Monocytes 0.5 Absolute Eosinophils 0.2 Absolute Basophils 0.1 Sodium 129.8 L Potassium 5.5 H Chloride 91 L Carbon Dioxide 28 Anion Gap 11 BUN 66 H Creatinine 2.56 H Est GFR ( Amer) 22 L Est GFR (Non-Af Amer) 18 L Glucose 209 H Calcium 10.9 H 01/08/17 01/08/17 01/08/17 17:55 17:55 23:59 Creatine Kinase < 20 L < 20 L CK-MB (CK-2) 0.64 Troponin I 0.028 NT-Pro-B Natriuret Pep 01/08/17 01/09/17 01/09/17 23:59 06:42 06:42 Creatine Kinase < 20 L CK-MB (CK-2) 0.55 0.56 Troponin I 0.058 0.137 NT-Pro-B Natriuret Pep 01/21/17 05:20 Creatine Kinase CK-MB (CK-2) Troponin I NT-Pro-B Natriuret Pep 2440 H Impressions: Chest X-Ray 01/19/17 00:00 IMPRESSION: Stable appearance of the chest Qualifiers PATEINT BEING DISCHARGED WITH ANY OF THE FOLLOWING DIAGNOSIS?: No
[2017-01-22 14:31] VITALS: BP 146/65
--- NOTE | 2017-01-22 16:48 | PROGRESS NOTE E ---
Progress Note NAME: JACINTA LUNSFORD : 1935 AGE: 81Y DATE: 01/22/2017 ROOM: 332 SUBJECTIVE: The patient denies any shortness of breath. She still has some orthopnea. There is no PND. There are no palpitations. There is no chest pain or discomfort. There are no TIA or CVA symptoms. OBJECTIVE: GENERAL: On examination, the patient appears to be slightly overweight. She has lost a lot of weight. She is well groomed. She is in no acute distress. VITAL SIGNS: She is afebrile with a temperature of 97.5 degrees Fahrenheit. Pulse is 60 beats per minute. Blood pressure is 146/65. Respirations are 18 per minute. O2 saturation is 100% on 3L nasal cannula. HEENT: Head is atraumatic and normocephalic. Eyes, pupils are equal, round, regular, reactive to light and accommodation. Extraocular movements are normal. There is no conjunctival pallor. There is no scleral icterus. ENT negative. Mouth, tongue and mucous membranes of the mouth are moist. There are no ulcers. There is no bleeding from the gums. NECK: Supple. There is no JVD. Carotids are equal with bilateral carotid bruits. There is no lymphadenopathy. There is no goiter. Trachea is central. LUNGS: There are a few scattered crackles in the left base. There are no rales of CHF and no rhonchi or wheezing. HEART: S1 and S2 are heard. S1 is of normal intensity. There is no S3 gallop. There is no S4 gallop. There is a systolic murmur of mild aortic stenosis present. A2 is preserved. There is murmur of mitral regurgitation which is severe which is heard in the apex with radiation to the left axilla. There is no rub. ABDOMEN: Soft, nontender. There is no hepatosplenomegaly. Bowel sounds are well heard. EXTREMITIES: Femorals are diminished. There are no femoral bruits. Leg pulses are diminished. There is no cyanosis or clubbing. There is no pedal edema. There is no DVT or cellulitis. CENTRAL NERVOUS SYSTEM: The patient is conscious, awake, alert, oriented x3 with no focal deficits. PSYCHIATRIC: The patient appears to be less depressed today and she is not agitated. Her judgment and insight are intact. INTAKE AND OUTPUT: The patient's 24-hour intake was 1798 mL, output of 500 mL. LABORATORY: White count 6100, hemoglobin 9.4, hematocrit 28%, platelet count 209,000. Sodium 129.8, potassium 5.5, chloride 90, CO2 of 28, BUN 66, creatinine 2.56, GFR is reduced at 18 which is chronic kidney disease stage 4 which has progressed from stage 3. Glucose 219, calcium 10.9. IMPRESSION: 1. SEVERE MITRAL REGURGITATION. This seems to be static and not dynamic since *------* mitral regurgitation appears to be severe. I have discussed the case with Dr. Smith of [facility] and have explained the case to her and believe that the patient to be evaluated for addressing the mitral valve regurgitation percutaneously or via open chest surgery. She has accepted the patient. This has been discussed with the patient and the patient's brother and also discussed with the hospitalist. 2. ACUTE ON CHRONIC CONGESTIVE HEART FAILURE, AT PRESENT OVER DIURESED. The patient has chronic diastolic heart failure and systolic heart failure secondary to volume overload and due to mitral regurgitation. 3. ELEVATED TROPONIN-I SECONDARY TO CONGESTIVE HEART FAILURE AND ACUTE ON CHRONIC KIDNEY DISEASE, NO EVIDENCE OF NON-ST ELEVATION [place]. 4. CHRONIC RESPIRATORY FAILURE AND HYPOXEMIA. The patient uses BiPAP at night and nasal O2 in the morning. At present, O2 saturations are 100% on 3L nasal cannula. 5. COPD, MUCH IMPROVED. The patient is back to baseline. 6. PNEUMONIA. The patient is on antibiotics, much improved. 7. CHRONIC KIDNEY DISEASE, AT PRESENT PROGRESSED TO STAGE 4. Earlier, she was stage 3. The GFR is now 18 mL. This is most likely due to more fluid being withdrawn compared to intake. 8. DUAL-CHAMBER PERMANENT PACEMAKER PLACEMENT WITH A HISTORY OF COMPLETE HEART BLOCK IN THE PAST. Pacemaker functioning properly. 9. VALVULAR DISEASE WITH MILD AORTIC STENOSIS AND SEVERE MITRAL REGURGITATION. 10. SEVERE MITRAL REGURGITATION. 11. HYPERTENSION. 12. HYPERKALEMIA. 13. 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 14. HYPERLIPIDEMIA. 15. PAST HISTORY OF GI BLEED WITH NO RECURRENCE. NOTE: I have had a detailed discussion with Dr. Smith to see if the patient can be helped by addressing the mitral regurgitation issue which I think is causing the patient to go into heart failure and this is a vicious cycle and the heart failure causes volume overload and increases mitral regurgitation. Also discussed with the hospitalist taking care of the patient. Discussed with the patient and the patient's brother. Note that 40 minutes spent on this patient with more than 50% of the time spent on direct patient care. This case involves highly complex medical decision making. DICTATING PHYSICIAN: KEN GIBSON M.D. [id number] PHY#: [id number] ID: [id number] JOB#: [id number] ACCT: [id number] cc: >
== END 2017-01-22 15:14 | disposition short-term general hospital (02) | DRG 291 ==
LOC: ER 10:28 → EH 13:48 → UNDOADMIN 13:56 → 3S 16:21
PROVIDERS: ADMIT Family Medicine; ATTEND Family Medicine
PROC: 5A09557 Assistance with Respiratory Ventilation, Greater than 96 Consecutive Hours, Continuous Positive Airway Pressure (ICD-10-PCS; 2017-01-08)
PROC: 3E0F73Z Introduction of Anti-inflammatory into Respiratory Tract, Via Natural or Artificial Opening (ICD-10-PCS; 2017-01-14)
PROC: 5A1D60Z (ICD-10-PCS; principal; 2017-01-17)
PROC: 06HM33Z Insertion of Infusion Device into Right Femoral Vein, Percutaneous Approach (ICD-10-PCS; 2017-01-17)
PROC: B51BZZA Fluoroscopy of Right Lower Extremity Veins, Guidance (ICD-10-PCS; 2017-01-17)
PROC: B54BZZA Ultrasonography of Right Lower Extremity Veins, Guidance (ICD-10-PCS; 2017-01-17)
DX: I13.2 Hypertensive heart and chronic kidney disease with heart failure and with stage 5 chronic kidney disease, or end stage renal disease (principal); I50.43 Acute on chronic combined systolic (congestive) and diastolic (congestive) heart failure; J96.21 Acute and chronic respiratory failure with hypoxia; N18.6 End stage renal disease; J81.0 Acute pulmonary edema; N17.9 Acute kidney failure, unspecified; I44.2 Atrioventricular block, complete; E11.22 Type 2 diabetes mellitus with diabetic chronic kidney disease; I49.3 Ventricular premature depolarization; I25.10 Atherosclerotic heart disease of native coronary artery without angina pectoris; R01.1 Cardiac murmur, unspecified; E78.5 Hyperlipidemia, unspecified; G43.909 Migraine, unspecified, not intractable, without status migrainosus; M10.9 Gout, unspecified; F32.9 Major depressive disorder, single episode, unspecified; K21.9 Gastro-esophageal reflux disease without esophagitis; E83.52 Hypercalcemia; J43.9 Emphysema, unspecified; D63.1 Anemia in chronic kidney disease; E11.51 Type 2 diabetes mellitus with diabetic peripheral angiopathy without gangrene; I27.2 Other secondary pulmonary hypertension; I08.0 Rheumatic disorders of both mitral and aortic valves; E87.5 Hyperkalemia; E66.01 Morbid (severe) obesity due to excess calories; Z68.28 Body mass index [BMI] 28.0-28.9, adult; Z99.2 Dependence on renal dialysis; Z66 Do not resuscitate; Z79.82 Long term (current) use of aspirin; Z79.4 Long term (current) use of insulin; Z79.899 Other long term (current) drug therapy; Z85.3 Personal history of malignant neoplasm of breast; Z85.828 Personal history of other malignant neoplasm of skin; Z90.49 Acquired absence of other specified parts of digestive tract; Z90.710 Acquired absence of both cervix and uterus; Z95.0 Presence of cardiac pacemaker; Z88.8 Allergy status to other drugs, medicaments and biological substances; Z88.6 Allergy status to analgesic agent; Z88.0 Allergy status to penicillin; Z88.2 Allergy status to sulfonamides; Z91.041 Radiographic dye allergy status; Z83.3 Family history of diabetes mellitus; Z82.49 Family history of ischemic heart disease and other diseases of the circulatory system
CPT/HCPCS: 36415; 36556; 71010; 76937; 80048; 80053; 80061; 80076; 81001; 82550; 82553; 82607; 82728; 82746; 82962; 83540; 83550; 83735; 83880; 84100; 84443; 84466; 84484; 85025; 85027; 85045; 86317; 86704; 87340; 87493; 87522; 93005; 93010; 93321; 94640; 94660; 94799; 96374; 96375; 99291; C1752; G8978-GP; G8979-GP; J1644; J1650; J1815; J1940; J2250; J2930; J3010; J3490; J7620; Q4081; S0119